=== PATIENT | male | born 1970 | race Caucasian/White ===

== ENCOUNTER 2023-01-20 22:50 | Inpatient (IN) | payer OTHER, SELFPAY ==
--- NOTE | ~2023-01-20 | XR_ITS ---
EXAMINATION: XR CHEST CLINICAL INFORMATION: Shortness of breath. COMPARISON: None available. TECHNIQUE: 2 views of the chest were obtained. FINDINGS: Low lung volumes and enlarged cardiomediastinal silhouette limiting evaluation of the left lower lobe. No focal airspace densities elsewhere in the well seen portions of the lungs. No pleural effusion on the lateral view. No pneumothorax. No acute osseous abnormalities. Thoracic spondylosis. XR/XR chest 2V IMPRESSION: No acute cardiopulmonary findings with the caveat of limited evaluation of the left lower lobe. Further evaluation with CT could be obtained as clinically deemed appropriate.
[2023-01-20 22:53] VITALS: BP 124/68; PULSE 86; O2SAT 96; BMI 52.9
--- NOTE | 2023-01-20 22:57 | ECG_ITS ---
Test Reason : SOB Blood Pressure : / mmHG Vent. Rate : 079 BPM Atrial Rate : 079 BPM P-R Int : 188 ms QRS Dur : 132 ms QT Int : 414 ms P-R-T Axes : 042 -50 072 degrees QTc Int : 474 ms Normal sinus rhythm Left axis deviation Left ventricular hypertrophy with QRS widening ( R in aVL , Joseluis product ) Cannot rule out Septal infarct , age undetermined Possible Lateral infarct , age undetermined Abnormal ECG No previous ECGs available Referred By: Generic ED Physician Electronically Signed By:TRACY BLANTON
[2023-01-20 23:12] VITALS: BP 103/72; PULSE 81; RESP 21; TEMP 36.8; O2SAT 96
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
[2023-01-20 23:16] LABS: MANUAL DIFF FLAG NO
[2023-01-20 23:17] LABS: Basophils Percent Auto 0.3 % (0-2); Eosinophils Absolute Auto 0.3 X10*3/uL (0.0-0.4); Eosinophils Percent Auto 3.6 % (0-4); Hematocrit 37.5 % (42.0-52.0); Hemoglobin 12.3 g/dl (14.0-18.0); Imm Gran Abs Auto 0.03 X10*3/uL (0.00-0.03); Imm Gran Pct Auto 0.3 % (0.0-0.4); Lymphocytes Absolute Auto 1.3 X10*3/uL (1.2-4.9); Lymphocytes Percent Auto 14.8 % (20-40); Mean Corpuscular HGB Conc 32.8 g/dl (31.0-36.0); Mean Corpuscular Hemoglobin 30.9 pg (27.0-33.0); Mean Corpuscular Volume 94.2 fL (80.0-98.0); Mean Platelet Volume 9.6 fL (9.4-12.4); Monocytes Absolute Auto 0.7 X10*3/uL (0.1-1.2); Monocytes Percent Auto 7.8 % (2-11); Neutrophils Absolute Auto 6.5 x10*3/uL (2.0-8.3); Neutrophils Percent Auto 73.2 % (45-73); Platelet Count 280 X10*3/uL (160-400); Red Blood Count 3.98 X10*6/uL (4.60-5.80); Red Cell Distribution Width 16.9 % (11.0-16.0); White Blood Count 8.8 X10*3/uL (4.8-10.8)
[2023-01-20 23:34] LABS: Alanine Aminotransferase 14 U/L (0-40); Albumin Level 3.7 g/dL (3.5-5.0); Alkaline Phosphatase 44 U/L (39-117); Anion Gap 18 (12-20); Aspartate Amino Transferase 18 U/L (5-37); Bilirubin Total 0.2 mg/dL (0.0-1.0); Blood Urea Nitrogen 36 mg/dL (9-16); Calcium 8.8 mg/dL (8.4-10.2); Carbon Dioxide 24 mmol/L (22-29); Chloride 104 mmol/L (96-108); Creatinine Clr Calc Pharmacy 77.8; Estimated Glomerular Filt Rate 40; Glucose Random 112 mg/dL (60-115); Potassium 4.2 mmol/L (3.3-5.1); Sodium 142 mmol/L (135-145); Total Protein 7.3 g/dL (6.5-8.0)
[2023-01-20 23:36] LABS: Troponin-I High Sensitivity 47.8 ng/L (<3.5-35.0)
[2023-01-20 23:37] LABS: B Type Natriuretic Peptide 51 pg/mL (<100)
[2023-01-20] MEDS: HYDROmorphone HCl 2 MG TABLET PO (23:44)
[2023-01-20] MEDS: methylPREDNISolone Sod Succ 125 MG/2 ML VIAL IVPUSH (23:45)
[2023-01-20] MEDS: Aspirin 81 MG TAB.CHEW 324 MG PO (23:51)
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
--- OUTSIDE RECORDS SUMMARY | 2023-01-20 23:55 | XMS_ITS | Continuity of Care Document ---
Author Name Unknown Organization [facility] Address Unknown Care Team Providers Care Data Entry Name Role Phone Preet Sofia MD Primary Care Physician [phone] Encounter [facility] Date(s): 10/20/21 - 11/19/21 [facility] Allergies, Adverse Reactions, Alerts No Known Allergies [...] 03/28/20 Not Given Patient Refuses 1Location History: [facility] 2Location History: [facility] 3Location History: [facility] 4Location History: [facility] Medications aspirin 81 mg oral delayed release tablet 81 mg, By Mouth, Daily, # 30 tablet, Refills 11, Tot. Refills 11, Maintenance, 12/06/21 12:33:00 EDT, Route to Pharmacy Electronically, [facility], 180, cm, 06/16/21 15:51:00 EST, Height, 168.5, kg, 06/03/21 15:52:00 EST, Dry Weight Start Date: 12/06/21 Status: Ordered atorvastatin 80 mg oral tablet 1 tablet, By Mouth, Daily, # 28 tablet, 1 Refills, [facility], 180, cm, 11/03/21 2:14:00 EDT, Height, 184, kg, 11/01/21 11:27:00 EDT, Dry Weight Start Date: 11/09/21 Status: Ordered betamethasone-clotrimazole 0.05%-1% topical cream 1 application, Topically, 2 times a day, apply to feet, # 45 Gm, 0 Refills, Maintenance, 07/29/21 11:03:00 EDT, Cream, [facility], Partial fill upon patient request if the prescription is for a schedule II opioid drug., 1 application Topic... Start Date: 07/29/21 Status: Ordered carvedilol 6.25 mg oral tablet 6.25 mg, 1, tablet, By Mouth, 2 times a day, for heart and blood pressure, # 60 tablet, Refills 5, Tot. Refills 5, Maintenance, 08/16/21 15:35:00 EDT, Route to Pharmacy Electronically, [facility], 180, cm, 08/12/21 8:38:00 EDT, Height, 175... Start Date: 08/16/21 Status: Ordered Entresto 24 mg-26 mg oral tablet 1 tablet, By Mouth, 2 times a day, # 60 tablet, 5 Refills, Maintenance, 10/07/21 17:36:00 EDT, Tablet, [facility], Prior authorization just received, 1 tablet By Mouth 2 times a day, 180, cm, 08/26/21 12:41:00 EDT, Height, 175.7, kg, 08/25... Start Date: 10/07/21 Status: Ordered FLUoxetine 40 mg oral capsule [...] Dry Weight Start Date: 07/02/21 Status: Ordered nitroglycerin 0.4 mg sublingual tablet 1 tablet = 0.4 mg, Sublingual, Every 5 minutes, PRN Chest Pain, # 100 tablet, 0 Refills, Maintenance, 06/09/21 12:34:00 EST, Tablet, [facility], Partial fill upon patient request if theprescription is for a schedule II opioid drug., 180... Start Date: 06/09/21 Status: Ordered spironolactone 25 mg oral tablet 25 mg, 1, tablet, By Mouth, Daily, # 30 tablet, Refills 5, Tot. Refills 5, Maintenance, 12/06/21 12:34:00 EDT, Route to Pharmacy Electronically, [facility], home delivery, 180, cm, 06/16/21 15:51:00 EST, Height, 168.5, kg, 06/03/21 15:52:0... Start Date: 12/06/21 Status: Ordered Symbicort 80mcg/4.5mcg Inhaler 2, puffs, Inhalation, 2 times a day, in the morning and the evening use with spacer chamber rinse mouth and throat after use, # 1 each, Refills 1, Tot. Refills 1, Maintenance, 07/29/21 11:03:00 EDT, Aerosol, Route to Pharmacy Electronically, [id number]... Start Date: 07/29/21 Status: Ordered torsemide 20 mg oral tablet 2 tablet = 40 mg, By Mouth, 2 times a day, # 120 tablet, 5 Refills, Maintenance, 09/23/21 16:07:00 EDT, Tablet, [facility], 180, cm, 08/26/21 12:41:00 EDT, Height, 175.7, kg, :22:00 EDT, Dry Weight Start Date: 09/23/21 Status: Ordered traZODone 50 mg oral tablet 50 mg, 1, tablet, By Mouth, Daily at bedtime, # 30 tablet, Refills 11, Tot. Refills 11, Maintenance, 07/02/21 18:28:00 EST, Route to Pharmacy Electronically, [facility], 180, cm, 06/16/21 15:51:00 EST, Height, 168.5, kg, 06/03/21 15:52:00... Start Date: 07/02/21 Status: Ordered Tylenol Extra Strength 500 mg oral tablet 2 tablet = 1,000 mg, By Mouth, Every 8 hours, PRN Pain , Moderate, # 120 tablet, 0 Refills, Maintenance, 11/18/21 13:43:00 EDT, Tablet, Partial fill upon patient request if the prescription is for a schedule II opioid drug. 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 CPP(Confirmed) Active Post traumatic stress disord er (PTSD)(Confirmed) 1999 Active Severe obesity(Confirmed) Active 1-Seen in CT scan of the abdomen done at [facility] on 08-08-16 Social History Social History Type Response Smoking Status 10 or more cigarette s (1/2 pack or more)/day in last 30 days; Interested in cessation: No; Patient wants NRT during admission No entered on: 06/03/21 Sex
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
--- OUTSIDE RECORDS SUMMARY | 2023-01-20 23:55 | XMS_ITS | Continuity of Care Document ---
Author Name Unknown Organization [facility] Address [address] [place] [address]- Care Team Providers Care Clinical Education Manager Name Role Phone Bismark TORRES, Preet Hall Primary Care Physician [phone] Encounter [facility] Date(s): 09/11/21 - 09/12/[address] [address] Discharge Disposition: A-D/C AMA Attending Physician: Ayad Figueroa MD, Parveen Li Admitting Physician: Agnes TORRES, [place] Referring Physician: Not on Staff, Referring MD Allergies, Adverse Reactions, Alerts No Known [...] History: [facility] 3Location History: [facility] 4Location History: [facility] Medications aspirin 81 mg oral delayed release [...] carvedilol 6.25 mg oral tablet 6.25 mg, Tablet, By Mouth, Hold for: sbp<90, HR<55, 09/12/21 9:00:00 EDT Start Date: 09/12/21 Stop Date: 09/12/21 Status: Completed carvedilol 6.25 mg oral tablet 6.25 mg, 1, tablet, By Mouth, 2 times a day, for heart and blood pressure, # 60 tablet, Refills 5, Tot. Refills 5, Maintenance, 08/16/21 15:35:00 EDT, Route to Pharmacy Electronically, [facility], 180, cm, 08/12/21 8:38:00 EDT, Height, 175... Start Date: 08/16/21 Status: Ordered diclofenac 1% topical gel = [...] Dry Weight Start Date: 11/24/21 Status: Ordered FLUoxetine 40 mg [...] 0 Refills, Maintenance, 06/09/21 12:34:00 EST, Tablet, [facility], Partial fill upon patient request [...] Dry Weight Start Date: 09/01/21 Status: Ordered [facility] Antifungal Extra Thick 2% topical cream 1 application, Topically, 2 times a day, to cracks in soles of feet, # 92 Gm, 0 Refills, Maintenance, 06/09/21 12:34:00 EST, Cream, [facility], Partial fill upon patient request if the prescription is for a schedule II opioid drug., 1 ap... Start Date: 06/09/21 Status: Ordered spironolactone 25 [...] 11:03:00 EDT, Aerosol, Route to Pharmacy Electronically, [id number]... Start Date: 07/29/21 Status: Ordered torsemide 20 mg oral tablet 2 tablet = 40 mg, By Mouth, 2 times a day, # 120 tablet, 3 Refills, Maintenance, 07/02/21 18:24:00 EST, Tablet, [facility], 180, cm, [...] consistent with a cyst on CT at [facility] 04/2019(Confirmed) 04/2019 Active Coronary artery [...] repair 2009(Confirmed) 1999 Active Morbid obesity(Confirmed) Active Obese class I(Confirmed) Active Obstructive sleep apnea(Confirmed) Active .Ruffler: Zoltan Diaz [phone], [facility]. CPP(Confirmed) Active Post traumatic stress disord er (PTSD)(Confirmed) 1999 Active 1-Seen in CT scan of the abdomen done at [facility] on 08-08-16 Results Radiology Reports * Exam Date Time Procedure Performing Provider Status 09/12/21 2:57 PM Knee 1 or 2 Views Left Sydnie Parker ne; Auth (Verified) Notes: (Knee 1 or 2 Views Left) Reason For Exam: L knee swelling, ? effusion;Pain RESULT: Knee 1 or 2 Views Left Knee 1 or 2 Views Left, 2 views Reason: Pain; L knee swelling, ? effusion; Clinical Question(s): Other: COMPARISON: None. FINDINGS: There is no evidence of acute or healing fracture, dislocation or bone lesion. No arthritic changes. No osteochondral defects or intra-articular loose bodies. Trace suprapatellar effusion. Substantial soft tissue swelling anterior to the patellar tendon and proximal tibia. IMPRESSION: Substantial soft tissue swelling anterior to the patellar tendon and upper tibia, which may be due to soft tissue contusion or hematoma. Prepatellar bursitis is within the differential, although the swelling appears somewhat more inferior than would be expected. No clear fracture. Trace suprapatellar effusion. WSN: [id number] Ordering Physician: Parveen Hooker Dictated By: Preet Diaz MD Dictated Date/Time: 09/12/21 4:13 pm Reviewed By: Preet Diaz MD Signed By: Preet Diaz MD Signed Date/Time: 09/12/21 4:13 pm Transcribed By: SHANNA Transcribed Date/Time: 09/12/21 4:11 pm * Exam Date Time Procedure Performing Provider Status 09/11/21 11:54 PM Chest Portable Donna Anderson; Au th (Verified) Notes: (Chest Portable) Reason For Exam: Chest Pain;Other: RESULT: Chest Portable Chest Portable Reason: Other:; Chest Pain; Clinical Question(s): CHF COMPARISON: 08/31/2021 chest radiograph. 08/25/2021 chest radiograph.08/31/2021 CT abdomen and pelvis. FINDINGS: LINES AND TUBES: None. LUNGS AND PLEURA: Apparent left lower lobe retrocardiac opacity has been seen on prior chest radiograph on 08/25/2021 and probably reflects a combination of cardiomegaly, and prominent epicardial fat pad rather than anyfocal consolidation or effusion. No definite focal consolidation is seen. Normal pulmonary vascularity. No pleural effusion. No pneumothorax. HEART, MEDIASTINUM AND CAROLA: Moderate prominence of the cardiac silhouette. Normal upper mediastinal and hilar contour. BONES AND SOFT TISSUES: No acute abnormality. IMPRESSION: 1. No acute abnormality. 2. Stable apparent left retrocardiac opacity probably a combination of cardiomegaly and prominent epicardial fat pad rather than a focal consolidation or effusion in the left lower lobe. WSN: [id number] Ordering Physician: Katie Levine Dictated By: Tye Billingsley MD Dictated Date/Time: 09/12/21 0:01 am Reviewed By: Tye Billingsley MD Signed By: Tye Billingsley MD Signed Date/Time: 09/12/21 0:01 am Transcribed By: SHANNA Transcribed Date/Time: 09/11/21 11:57 pm Vital Signs Most recent to oldest [Reference Range]: 1 2 3 Oxygen Saturation [94-100 %] 94 % (09/12/21 4:05 PM) 93 % *L* (09/12/21 12:11 PM) 97 % (09/12/21 10:03 AM) Pulse Rate [55-90 bpm] 62 bpm (09/12/21 4:05 PM) 57 bpm (09/12/21 12:11 PM) 71 bpm (09/12/21 10:03 AM) Blood Pressure [90-138/55-84 mm Hg] 117/73mm Hg (09/12/21 4:05 PM) 121/68mm Hg (09/12/21 12:11 PM) 141/88mm Hg *H* (09/12/21 10:03 AM) Respiratory Rate [16-30 br/min] 17 br/min (09/12/21 4:05 PM) 18 br/min (09/12/21 12:11 PM) 20 br/min (09/12/21 10:03 AM) Temperature [96.8-100.4 DegF] 98.9 DegF (09/12/21 4:05 PM) 98.2 DegF (09/12/21 12:11 PM) 98 DegF (09/12/21 12:41 AM) Mode of Delivery (Oxygen) Room air (09/12/21 4:05 PM) Room air (09/12/21 12:11 PM) Room air (09/12/21 10:03 AM) Blood pressure sites Arm, left (09/12/21 4:05 PM) Arm, left (09/12/21 12:11 PM) Temperature Route Oral (09/12/21 4:05 PM) Oral (09/12/21 12:11 PM) Oral (09/12/21 12:41 AM) Social History Social History Type Response Smoking Status 10 or more cigarette s (1/2 pack or more)/day in last 30 days; Interested in cessation: No; Patient wants NRT during admission No entered on: 06/03/21 Sex
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
--- OUTSIDE RECORDS SUMMARY | 2023-01-20 23:56 | XMS_ITS | Continuity of Care Document ---
Author Name Unknown Organization [facility] Address [address] [place] [address]- Care Team Providers Care Network Systems Analyst Name Role Phone Preet Sofia MD Primary Care Physician [place] [facility] [place] [id number] Date(s): 10/04/22 - 11/03/[address] [address]- Attending Physician: Alexis Daigle Admitting Physician: AdmtrAlexis Referring Physician: Admtr, Ar8 Allergies, Adverse Reactions, Alerts No Known Allergies [...] 3 Refills, Maintenance, 10/19/22 20:02:00 EDT, Tablet, [id number], 180, cm, 10/19/22 4:49:00 EDT, [...] 10/19/22 20:05:00 EDT, Route to Pharmacy Electronically, [facility]/pharm[facility] #[id number], 180, cm, 10/19/22 4:49:00 EDT, Height, 181, kg, 09/26/22 14:48:00 EDT, Dry W... Start Date: 10/19/22 Status: Ordered Dilaudid 2 mg oral tablet See Instructions, PRN Pain , Severe, 1 tablet By Mouth every 4 hours up to 3x/day during daytime asneeded for severe pain. 7 day supply., # 21 tablet, 0 Refills, Maintenance, 10/28/22 22:27:00 EDT, Tablet, [facility]/pharmacy #[id number], Partial fill upon patien... Start Date: 10/28/22 Status: Ordered duloxetine 30 mg oral enteric coated capsule 1 capsule = 30 mg, By Mouth, Daily at bedtime, # 30 capsule, 1 Refills, Maintenance, 10/12/22 12:25:00 EDT, Capsule, [facility], Partial fill upon patient request if the prescription isfor a schedule II opioid drug., 180, cm, 10/12/22 1... Start Date: 10/12/22 Stop Date: 12/11/22 Status: Ordered Entresto 24 mg-26 mg oral tablet 1 tablet, By Mouth, 2 times a day, # 60 tablet, 5 Refills, Maintenance, 10/19/22 20:09:00 EDT, Tablet, [id number], 1 tablet By Mouth 2 times [...] 3 Refills, Maintenance, 10/19/22 20:06:00 EDT, Tablet, [id number], 180, cm, 10/19/22 [...] 0 Refills, Maintenance, 06/09/21 12:34:00 EST, Tablet, [facility], Partial fill upon patient [...] 10/19/22 20:09:00 EDT, Route to Pharmacy Electronically, [id number], 180, cm, 10/19/22 4:49:00 EDT, [...] 5 Refills, Maintenance, 10/19/22 20:12:00 EDT, Tablet, [id number], 180, cm, 10/19/22 4:49:00 EDT, [...] consistent with a cyst on CT at [facility] 04/2019 Confirmed 04/2019 Active Coronary artery [...] Confirmed Active Obstructive sleep apnea Confirmed Active .Packing Line Operator: Lucita Segal [phone], [facility]. CPP Confirmed Active Post traumatic stress disorder (PTSD) Confirmed 1999 Active Severe obesity Confirmed Active 1-Seen in CT scan of the abdomen done at [facility] on 08-08-16 Social History Social History Type Response Smoking Status 10 or more cigarette s (1/2 pack or more)/day in last 30 days; Interested in cessation: No; Patient wants NRT during admission No entered on: 06/03/21 Sex Male Patient Care team information Care Team Personnel Name: Brenda Vanegas RN Position: [facility] RN Member Role: Primary Care Nurse Name: Renae Rashid RN Position: S RN Member Role: Primary Care Nurse Name: Lizbeth Reardon RN Position: [facility] RN Member Role: Primary Care Nurse Name: Brittny Griffin RN Position: [facility] RN Member Role: Primary Care Nurse Name: Rickey Cruz RN Position: [facility] RN Member Role: Primary Care Nurse Name: Brandee Bee RN Position: [facility] RN Member Role: Primary Care Nurse Name: Janie Gamez RN Position: [facility] RN Member Role: Primary Care Nurse Name: Jing Santiago RN Position: [facility] RN Member Role: Primary Care Nurse Name: Sven Bustos RN Position: [facility] RN Member Role: Primary Care Nurse Name: Sharron Schaefer RN Position: [facility] RN Member Role: Primary Care Nurse Name: Franca Luis LPN Position: [facility] RN Member Role: Primary Care Nurse Name: Sheryl Linda RN Position: [facility] RN Member Role: Primary Care Nurse Name: Zara Aldridge RN Position: [facility] RN Member Role: Primary Care Nurse Name: Preet Sofia MD Position: [facility] Physician - Primary Care Member Role: PCP Address: Address: [address] [place] [address] Name: Betsey Harvey RN Position: [facility] RN Member Role: Primary Care Nurse Name: Camila Cervantes RN Position: [facility] RN Member Role: Primary Care Nurse Name: Aruna Warren RN Position: [facility] RN Member Role: Primary Care Nurse Name: Naomi Kyle RN Position: [facility] RN Member Role: Primary Care Nurse Name: Pavan Espinoza RN Position: [facility] RN Member Role: Primary Care Nurse Name: Lynne Shah RN Position: [facility] RN Member Role: Primary Care Nurse Name: Naomi Mcadams RN Position: [facility] RN Member Role: Primary Care Nurse Name: Ashwini Larson RN Position: [facility] SN RN Member Role: Primary Care Nurse Name: Darren Ortega RN Position: [facility] RN Member Role: Primary Care Nurse Name: Lorraine Good RN Position: [facility] RN Member Role: Primary Care Nurse Name: Mohan Quijano RN Position: [facility] RN Member Role: Primary Care Nurse Name: Shaina Nagy RN Position: [facility] RN Member Role: Primary Care Nurse Name: Sarah Gordon RN Position: [facility] Onco RN Member Role: Primary Care Nurse Name: Catalina Cook RN Position: S RN Member Role: Primary Care Nurse Name: Sweta Lang RN Position: [facility] RN Member Role: Primary Care Nurse Name: Selene SANDERSON, Kely Eng Position: [facility] RN Member Role: Primary Care Nurse Care Team Related Persons Name: DIAN RODGERS Address: [place] [address] Name: KT LANDEROS Address: [place] [address] Name: TAE QUIROZ Address: [place] [id number]
--- OUTSIDE RECORDS SUMMARY | 2023-01-20 23:56 | XMS_ITS | Continuity of Care Document ---
Author Name Unknown Organization [facility] Address [address] [place] [address]- Care Team Providers Care Back End Web Developer Name Role Phone Preet Sofia MD Primary Care Physician Encounter [facility] Date(s): 10/08/20 - 11/07/[address] [id number] Allergies, Adverse Reactions, Alerts Substance Reaction Severity [...] 03/28/20 Not Given Patient Refuses 1Location History: [facility] 2Location History: [facility] 3Location History: [facility] 4Location History: [facility] Medications aspirin 81 mg oral delayed release tablet 81 mg, By Mouth, Daily, # 90 tablet, Refills 4, Tot. Refills 4, Maintenance, 09/03/20 20:10:00 EDT,Route to Pharmacy Electronically, [facility], 180, cm, 09/03/20 9:24:00 EDT, Height, 172.7, kg, 08/28/20 4:44:00 EDT, Dry Weight Start Date: 09/03/20 Status: Ordered atorvastatin 40 mg oral tablet 1 tablet = 40 mg, By Mouth, Daily at bedtime, # 90 tablet, 4 Refills, Maintenance, 09/03/20 20:11:00 EDT, Tablet, [facility], 180, cm, 09/03/20 9:24:00 EDT, Height, 172.7, kg, 08/28/20 4:44:00 EDT, Dry Weight Start Date: 09/03/20 Status: Ordered carvedilol 3.125 mg oral tablet 3.125 mg, 1, tablet, By Mouth, 2 times a day, # 180 tablet, Refills 0, Tot. Refills 0, Maintenance,09/21/20 13:23:00 EDT, Route to Pharmacy Electronically, [facility], Partial fill upon patient request if the prescription is for a sched... Start Date: 09/21/20 Status: Ordered clopidogrel 75 mg oral tablet 75 mg, 1, tablet, By Mouth, Daily, # 90 tablet, Refills 3, Tot. Refills 3, Hard Stop 01/17/22 16:10:00 EDT, 01/22/21 16:10:00 EDT, [id number], 180, cm, 04/08/20 13:32:00 EST, Height, 181.... Start Date: 01/22/21 Stop Date: 01/17/22 Status: Ordered Entresto 24 mg-26 mg oral tablet 1 tablet, By Mouth, 2 times a day, # 180 tablet, 0 Refills, Maintenance, 09/21/20 13:24:00 EDT, Tablet, [facility], Partial fill upon patient request if the prescription is for a schedule II opioid drug., 1 tablet By Mouth 2 times a day,... Start Date: 09/21/20 Status: Ordered FLUoxetine 20 mg oral capsule 20 mg, 1, capsule, By Mouth, Daily, # 90 capsule, Refills 4, Tot. Refills 4, Maintenance, 09/03/20 20:09:00 EDT, Route to Pharmacy Electronically, [facility], home delivery, 180, cm, 09/03/20 9:24:00 EDT, Height, 172.7, kg, ... Start Date: 09/03/20 Status: Ordered levothyroxine 0.05 mg oral tablet 1 tablet = 50 mcg, By Mouth, Daily, # 90 tablet, 4 Refills, Maintenance, 06/26/20 17:25:00 EST, Tablet, [facility], home delivery, 180, cm, 06/26/20 14:13:00 EST, Height, 181.6, kg, 03/27/20 14:58:00 EST, Dry Weight Start Date: 06/26/20 Status: Ordered nortriptyline 10 mg oral capsule 10 mg, 1, capsule, By Mouth, Daily, # 90 capsule, Refills 3, Tot. Refills 3, Maintenance, 09/03/20 20:09:00 EDT, Route to Pharmacy Electronically, [facility], 180, cm, 09/03/20 9:24:00 EDT, Height, 172.7, kg, 08/28/20 4:44:00 EDT,... Start Date: 09/03/20 Status: Ordered pantoprazole 20 mg oral delayed release tablet = 20 mg, By Mouth, Daily, # 30 tablet, 0 Refills, Maintenance, 08/31/20 14:17:00 EDT, EC Tablet, 180, cm, 07/10/20 16:22:00 EDT, Height, 172.7, kg, 08/28/20 4:44:00 EDT, Dry Weight Start Date: 08/31/20 Stop Date: 09/30/20 Status: Ordered spironolactone 25 mg oral tablet 25 mg, 1, tablet, By Mouth, Daily, # 90 tablet, Refills 3, Tot. Refills 3, Maintenance, 06/26/20 17:25:00 EST, Route to Pharmacy Electronically, [facility], [place] [facility], 180, cm, 06/26/20 14:13:00 EST, Height, 181.6, kg, 03/27/20... Start Date: 06/26/20 Status: Ordered torsemide 20 mg oral tablet 1 tablet = 20 mg, By Mouth, Daily, # 90 tablet, 0 Refills, Maintenance, 09/21/20 13:23:00 EDT, Tablet, [facility], Partial fill upon patient request if [...] consistent with a cyst on CT at [facility] 04/2019(Confirmed) 04/2019 Active Coronary artery [...] Morbid obesity(Confirmed) Active Obstructive sleep apnea(Confirmed) Active .Guardian Ad Litem: Zoltan Diaz [phone], [facility]. CPP(Confirmed) Active Post traumatic stress disord er (PTSD)(Confirmed) 1999 Active 1-Seen in CT scan of the abdomen done at [facility] on 08-08-16 Social History Social History Type Response Smoking Status 10 or more cigarette s (1/2 pack or more)/day in last 30 days; Other: [id number]; entered on: 09/03/20 Sex
--- OUTSIDE RECORDS SUMMARY | 2023-01-20 23:56 | XMS_ITS | Continuity of Care Document ---
Author Name Unknown Organization [facility] Address [address] [place] [address]- Care Team Providers Care It Instructor Name Role Phone Preet Sofia MD Primary Care Physician [phone] Encounter [facility] Date(s): 10/19/22 - 11/18/22 [facility]/[address] [address]- [place] Allergies, Adverse Reactions, Alerts No Known Allergies Immunizations Given and Recorded Vaccine Date Status Refusal Reason SARS-CoV-2 (COVID-19) mRNA-[id number] vaccine 05/11/21 G iven influenza virus vaccine, [...] Not Given Patient Refuses 1Location History: [facility] 2Location History: [facility] 3Location History: [facility] 4Location History: [facility] Medications aspirin 81 mg oral delayed release [...] 3 Refills, Maintenance, 10/19/22 20:02:00 EDT, Tablet, [facility]/pharmacy #[id number], 180, cm, 10/19/22 4:49:00 EDT, [...] 10/19/22 20:05:00 EDT, Route to Pharmacy Electronically, [facility]/pharmacy #[id number], 180, cm, 10/19/22 4:49:00 EDT, Height, 181, kg, 09/26/22 14:48:00 EDT, Dry W... Start Date: 10/19/22 Status: Ordered Dilaudid 2 mg oral tablet See Instructions, PRN Pain , Severe, 1 tablet By Mouth every 4 hours up to 3x/day during daytime asneeded for severe pain. 7 day or more supply., # 21 tablet, 0 Refills, Maintenance, 11/10/22 20:43:00 EDT, Tablet, [facility]/pharmacy #[id number], Partial fill upo... Start Date: 11/10/22 Status: Ordered duloxetine 30 mg oral enteric coated capsule 1 capsule = 30 mg, By Mouth, Daily at bedtime, # 30 capsule, 1 Refills, Maintenance, 10/12/22 12:25:00 EDT, Capsule, [facility], Partial fill upon patient [...] 3 Refills, Maintenance, 10/19/22 20:06:00 EDT, Tablet, [facility]/pharmacy #[id number], 180, cm, 10/19/22 4:49:00 EDT, [...] 0 Refills, Maintenance, 06/09/21 12:34:00 EST, Tablet, [facility], Partial fill upon patient [...] 10/19/22 20:09:00 EDT, Route to Pharmacy Electronically, [facility]/pharmacy #[id number], 180, cm, 10/19/22 4:49:00 EDT, [...] 5 Refills, Maintenance, 10/19/22 20:12:00 EDT, Tablet, [facility]/pharmacy #[id number], 180, cm, 10/19/22 4:49:00 EDT, [...] consistent with a cyst on CT at [facility] 04/2019 Confirmed 04/2019 Active Coronary artery disease, [...] Confirmed Active Obstructive sleep apnea Confirmed Active .Exhibits Manager: Lucita Segal [phone], [facility]. CPP Confirmed Active Post traumatic stress disorder (PTSD) Confirmed 1999 Active Severe obesity Confirmed Active 1-Seen in CT scan of the abdomen done at [facility] on 08-08-16 Social History Social History Type [...] Care Nurse Name: Lizbeth Reardon RN Position: S RN Member Role: Primary Care Nurse Name: Brittny Griffin RN Position: S RN Member Role: Primary Care Nurse Name: Phill Michelle Position: [facility] RN Supv Member Role: Primary Care Nurse Name: Rickey Cruz RN Position: [facility] RN Member Role: Primary Care Nurse Name: Brandee Bee RN Position: [facility] RN Member Role: Primary Care Nurse Name: Janie Gamez RN Position: [facility] RN Member Role: Primary Care Nurse Name: Jing Santiago RN Position: [facility] RN Member Role: Primary Care Nurse Name: Sven Bustos RN Position: [facility] RN Member Role: Primary Care Nurse Name: Sharron Schaefer RN Position: [facility] RN Member Role: Primary Care Nurse Name: Franca Luis LPN Position: [facility] RN Member Role: Primary Care Nurse Name: Sheryl Linda RN Position: [facility] RN Member Role: Primary Care Nurse Name: Zara Aldridge RN Position: [facility] RN Member Role: Primary Care Nurse Name: Preet Sofia MD Position: [facility] Physician - Primary Care Member Role: PCP Address: Address: [address] [place] [address] Name: Betsey Harvey RN Position: [facility] RN Member Role: Primary Care Nurse Name: Camila Cervantes RN Position: [facility] RN Member Role: Primary Care Nurse Name: Aruna Warren RN Position: [facility] RN Member Role: Primary Care Nurse Name: Naomi Kyle RN Position: [facility] RN Member Role: Primary Care Nurse Name: Pavan Espinoza RN Position: [facility] RN Member Role: Primary Care Nurse Name: Lynne Shah RN Position: [facility] RN Member Role: Primary Care Nurse Name: Ashwini Larson RN Position: [facility] SN RN Member Role: Primary Care Nurse Name: Darren Ortega RN Position: [facility] RN Member Role: Primary Care Nurse Name: Lorraine Good RN Position: [facility] RN Member Role: Primary Care Nurse Name: Mohan Quijano RN Position: [facility] RN Member Role: Primary Care Nurse Name: Shaina Nagy RN Position: [facility] RN Member Role: Primary Care Nurse Name: Sarah Gordon RN Position: [facility] Onco RN Member Role: Primary Care Nurse Name: Catalina Cook RN Position: [facility] RN Member Role: Primary Care Nurse Name: Sweta Lang RN Position: [facility] RN Member Role: Primary Care Nurse Name: Selene SANDERSON, Kely Eng Position: S RN Member Role: Primary Care Nurse Care Team Related Persons Name: DIAN RODGERS Address: [place] [address] Name: KT LANDEROS Address: [place] [address] Name: TAE QUIROZ Address: [place] [address]
--- OUTSIDE RECORDS SUMMARY | 2023-01-20 23:56 | XMS_ITS | Continuity of Care Document ---
Author Name Unknown Organization [facility] Address [address] [place] [address]- Care Team Providers Care Hyster Machine Operator Name Role Phone Preet Sofia MD Primary Care Physician Encounter [facility] Date(s): 11/16/22 - 12/16/22 [facility] [address]- [place] Allergies, Adverse Reactions, Alerts No Known Allergies Immunizations Given and Recorded Vaccine Date Status Refusal Reason SARS-CoV-2 (COVID-19) mRNA-1488 vaccine 05/11/21 G iven influenza virus vaccine, inactivated 1 02/08/14 Re corded hepatitis B adult vaccine 01/22/13 Recorded hepatitis B adult vaccine 08/12/10 Recorded hepatitis B adult vaccine 2 03/09/10 Recorded Hepatitis A Adult Vaccine 3 08/12/10 Recorded Hepatitis A Adult Vaccine 4 02/27/10 Recorded 1Location History[facility] 2Location History: [facility] 3Location History: [facility] 4Location History: [facility] Medications aspirin 81 mg oral delayed release tablet 1 tablet = 81 mg, By Mouth, Daily, # 90 tablet, 3 Refills, Maintenance, 12/10/22 1:31:00 EDT, CR Tablet, [id number], 178, cm, 11/22/22 18:01:00 EDT, Height, 164.9, kg, 11/18/22 18:49:00 EDT, Dry Weight Start Date: 12/10/22 Status: Ordered atorvastatin 80 mg oral tablet 1 tablet = 80 mg, By Mouth, Daily, # 30 tablet, 11 Refills, Maintenance, 12/22/22 14:06:00 EDT, Tablet, [id number], 178, cm, 11/22/22 18:01:00 EDT, Height, 164.9, kg, 11/18/22 18:49:00 EDT, Dry Weight Start Date: 12/22/22 Status: Ordered bariatric commode bariatric commode, See Instructions, # 1 each, Refills 0, Tot. Refills 0, Maintenance, Dx - Weakness / Leg Pain, 10/14/22 18:29:00 EDT, Supply Start Date: 10/14/22 Status: Ordered Bariatric Walker Bariatric Walker, See Instructions, # 1 each, Refills 0, Tot. Refills 0, Maintenance, Dx - Weakness/ Leg Pain, 10/14/22 18:29:00 EDT, Supply Start Date: 10/14/22 Status: Ordered carvedilol 3.125 mg oral tablet 6.25 mg, 2, tablet, By Mouth, 2 times a day, # 60 tablet, Refills 5, Tot. Refills 5, Maintenance, 12/22/22 14:14:00 EDT, Route to Pharmacy Electronically, [facility]/pharmacy #[id number], 178, cm, 11/22/22 18:01:00 EDT, Height, 164.9, kg, 11/18/22 18:49:00 EDT, . Start Date: 12/22/22 Status: Ordered Chem 7 in a week, results to PCP Chem 7 in a week, results to PCP, See Instructions, # 1 each, Refills 0, Tot. Refills 0, Maintenance, Dx: CHF, 11/22/22 15:17:00 EDT, Supply Start Date: 11/22/22 Status: Ordered Dilaudid 2 mg oral tablet See Instructions, PRN Pain , Severe, 1 tablet By Mouth every 4 hours up to 3x/day during daytime asneeded for severe pain, =14 day or more supply., # 42 tablet, 0 Refills, Maintenance, 12/06/22 13:35:00 EDT, Tablet, [facility] [place] [place] Start Date: 12/06/22 Status: Ordered duloxetine 30 mg oral enteric coated capsule 1 capsule = 30 mg, By Mouth, Daily at bedtime, # 30 capsule, 5 Refills, Maintenance, 01/21/23 14:06:00 EDT, Capsule, [facility]/pharmacy #[id number], Partial fill upon patient request if the prescription is for aschedule II opioid drug., 178, cm, 11/22/22 18:01:0... Start Date: 01/21/23 Stop Date: 07/20/23 Status: Ordered Eliquis 5 mg oral tablet 1 tablet = 5 mg, By Mouth, 2 times a day, # 60 tablet, 5 Refills, Maintenance, 12/10/22 1:31:00 EDT, Tablet, [facility]/pharmacy #[id number], Partial fill upon patient request if the prescription is for a schedule II opioid drug., 178, cm, 11/22/22 18:01:00 EDT, H... Start Date: 12/10/22 Status: Ordered Entresto 24 mg-26 mg oral tablet 1 tablet, By Mouth, 2 times a day, for 30 days, # 60 tablet, 0 Refills, Hard Stop 12/22/22 14:07:00EDT, 11/22/22 14:07:00 EDT, Tablet, [facility]/pharmacy #[id number], 178, cm, 11/22/22 11:40:00 EDT, Height, 164.9, kg, 11/18/22 18:49:00 EDT, Dry Weight Start Date: 11/22/22 Stop Date: 12/22/22 Status: Ordered Entresto 24 mg-26 mg oral tablet 1 tablet, By Mouth, 2 times a day, # 60 tablet, 5 Refills, Maintenance, 12/22/22 14:07:00 EDT, Tablet, [facility]/pharmacy #[id number], 1 tablet By Mouth 2 times a day,x30 days, 178, cm, 11/22/22 18:01:00 EDT, Height, 164.9, kg, 11/18/22 18:49:00 EDT, Dry Weight Start Date: 12/22/22 Stop Date: 06/20/23 Status: Ordered Hospital Bed See Instructions, # 1 each, Maintenance, semi-electric adjustable hospital bed , HOB elevated >30degr most of time. Duration: 2 yrs. Dx: I50.22, 10/12/22 17:37:00 EDT, Compound Start Date: 10/12/22 Status: Ordered levothyroxine 0.2 mg oral tablet 1 tablet = 200 mcg, By Mouth, Daily, for 30 days, # 30 tablet, 3 Refills, Hard Stop 03/22/23 14:07:00 EST, 11/22/22 14:07:00 EDT, Tablet, [facility]/pharmacy #[id number], 178, cm, 11/22/22 11:40:00 EDT, Height, 164.9, kg, 11/18/22 18:49:00 EDT, Dry Weight Start Date: 11/22/22 Stop Date: 03/22/23 Status: Ordered levothyroxine 0.2 mg oral tablet 1 tablet = 200 mcg, By Mouth, Daily, # 30 tablet, 11 Refills, Maintenance, 03/22/23 14:07:00 EST, Tablet, [facility]/pharmacy #[id number], 178, cm, 11/22/22 18:01:00 EDT, Height, 164.9, kg, 11/18/22 18:49:00 EDT,Dry Weight Start Date: 03/22/23 Stop Date: 03/16/24 Status: Ordered melatonin 3 mg oral tablet [...] Refills, Maintenance, 10/19/22 20:08:00 EDT, REC Powder, [facility]/pharmacy #[id number], 17 Gm By Mouth Daily,PRN:Constipation,Instr:dissolve in water before taking, 180, cm,... Start Date: 10/19/22 Status: Ordered nitroglycerin 0.4 mg sublingual tablet 1 tablet = 0.4 mg, Sublingual, Every 5 minutes, PRN Chest Pain, # 100 tablet, 0 Refills, Maintenance, 06/09/21 12:34:00 EST, Tablet, [facility], Partial fill upon patient request if theprescription is for a schedule II opioid drug., 180... Start Date: 06/09/21 Status: Ordered pantoprazole 20 mg oral delayed release tablet 1 tablet = 20 mg, By Mouth, Daily, # 30 tablet, 5 Refills, Maintenance, 01/21/23 14:07:00 EDT, EC Tablet, 178, cm, 11/22/22 18:01:00 EDT, Height, 164.9, kg, 11/18/22 18:49:00 EDT, Dry Weight Start Date: 01/21/23 Stop Date: 07/20/23 Status: Ordered Physical Therapy Physical Therapy, See Instructions, # 1 each, Refills 0, Tot. Refills 0, Maintenance, Dx: CHF exacerbation, Acute DVT, 11/22/22 15:17:00 EDT, Supply Start Date: 11/22/22 Status: Ordered spironolactone 25 mg oral tablet 25 mg, 1, tablet, By Mouth, Daily, # 30 tablet, Refills 5, Tot. Refills 5, Maintenance, 12/22/22 14:07:00 EDT, Route to Pharmacy Electronically, [facility]/pharmacy #[id number], 178, cm, 11/22/22 18:01:00 EDT, Height, 164.9, kg, 11/18/22 18:49:00 EDT, Dry Weight Start Date: 12/22/22 Stop Date: 06/20/23 Status: Ordered Symbicort 80mcg/4.5mcg Inhaler 2, puffs, Inhalation, 2 times a day, in the morning and the evening use with spacer chamber rinse mouth and throat after use, # 1 each, Refills 3, Tot. Refills 3, Maintenance, 11/22/22 14:06:00 EDT, Aerosol, Route to Pharmacy Electronically, [id number]... Start Date: 11/22/22 Status: Ordered torsemide 20 mg oral tablet 1 tablet = 20 mg, By Mouth, 2 times a day, # 60 tablet, 5 Refills, Maintenance, 12/22/22 14:08:00 EDT, Tablet, [facility]/pharmacy #[id number], 178, cm, 11/22/22 18:01:00 EDT, Height, 164.9, kg, 11/18/22 18:49:00EDT, Dry Weight Start Date: 12/22/22 Stop Date: 06/20/23 Status: Ordered Tylenol Extra Strength 500 mg oral tablet 1 tablet = 500 mg, By Mouth, 3 times a day, PRN Pain , Moderate, for 14 days, # 24 tablet, 5 Refills, Hard Stop 01/31/23 14:05:45 EDT, 10/19/22 20:00:00 EDT, Tablet, [facility]/pharmacy #[id number], 180, cm, 10/19/22 4:49:00 EDT, Height, 181, kg, 09/26/22 14:48:00... Start Date: 10/19/22 Stop Date: 01/31/23 Status: Ordered Tylenol Extra Strength 500 mg oral tablet 1 tablet = 500 mg, By Mouth, 3 times a day, PRN Pain , Moderate, # 100 tablet, 5 Refills, Maintenance, 01/31/23 14:05:00 EDT, Tablet, [facility]/pharmacy #[id number], 178, cm, 11/22/22 18:01:00 EDT, Height, 164.9, kg, 11/18/22 18:49:00 EDT, Dry Weight Start Date: 01/31/23 Status: Ordered Problem List Condition Confirmation Course [...] consistent with a cyst on CT at [facility] 04/2019 Confirmed 04/2019 Active Coronary artery disease, [...] Confirmed Active Obstructive sleep apnea Confirmed Active .Microbiology Teacher: Lucita Segal [phone], [facility]. CPP Confirmed Active Post traumatic stress disorder (PTSD) Confirmed 1999 Active Pulmonary embolus most branches of R lung, Dx at [place], [place] on 11/28/22. L popliteal & peroneal DVT 11/18/22 Confirmed Active Severe obesity Confirmed Active 1-Seen in CT scan of the abdomen done at [facility] on 08-08-16 Social History Social History Type Response Smoking Status 10 or more cigarette s (1/2 pack or more)/day in last 30 days; Interested in cessation: No; Patient wants NRT during admission No entered on: 06/03/21 Sex Male Patient Care team information Care Team Personnel Name: Brenda Vanegas RN Position: [facility] RN Member Role: Primary Care Nurse Name: Renae Rashid RN Position: [facility] RN Member Role: Primary Care Nurse Name: Lizbeth Reardon RN Position: [facility] RN Member Role: Primary Care Nurse Name: Brittny Griffin RN Position: [facility] RN Member Role: Primary Care Nurse Name: Phill Michelle Position: [facility] RN Supv Member Role: Primary Care Nurse Name: Rickey Cruz RN Position: [facility] RN Member Role: Primary Care Nurse Name: Brandee Bee RN Position: [facility] RN Member Role: Primary Care Nurse Name: Janie Gamez RN Position: [facility] RN Member Role: Primary Care Nurse Name: Toby Trotter RN Position: [facility] RN Supv Member Role: Primary Care Nurse Name: Jing Santiago RN Position: [facility] RN Member Role: Primary Care Nurse Name: Sven Bustos RN Position: [facility] RN Member Role: Primary Care Nurse Name: Sharron Schaefer RN Position: [facility] RN Member Role: Primary Care Nurse Name: Franca Luis LPN Position: [facility] RN Member Role: Primary Care Nurse Name: Sheryl Linda RN Position: [facility] RN Member Role: Primary Care Nurse Name: Zara Aldridge RN Position: [facility] RN Member Role: Primary Care Nurse Name: Preet Sofia MD Position: [facility] Physician - Primary Care Member Role: PCP Address: Address: [address] [place] [address] Name: Betsey Harvey RN Position: [facility] RN Member Role: Primary Care Nurse Name: Camila Cervantes RN Position: [facility] RN Member Role: Primary Care Nurse Name: Aruna Warren RN Position: [facility] RN Member Role: Primary Care Nurse Name: Naomi Kyle RN Position: [facility] RN Member Role: Primary Care Nurse Name: Pavan Espinoza RN Position: [facility] RN Member Role: Primary Care Nurse Name: Lynne Shah RN Position: [facility] RN Member Role: Primary Care Nurse Name: Ashwini Larson RN Position: [facility] SN RN Member Role: Primary Care Nurse Name: Lorraine Good RN Position: [facility] RN Member Role: Primary Care Nurse Name: Mohan Quijano RN Position: [facility] RN Member Role: Primary Care Nurse Name: Shaina Nagy RN Position: [facility] RN Member Role: Primary Care Nurse Name: Sarah Gordon RN Position: [facility] Onco RN Member Role: Primary Care Nurse Name: Catalina Cook RN Position: [facility] RN Member Role: Primary Care Nurse Name: Yun Wadsworth RN Position: [facility] RN Member Role: Primary Care Nurse Name: Sweta Lang RN Position: [facility] RN Member Role: Primary Care Nurse Name: Kely Morton RN Position: [facility] RN Member Role: Primary Care Nurse Care Team Related Persons Name: DIAN RODGERS Address: [place] [address] Name: KT LANDEROS Address: [place] [address] Name: TAE QUIROZ Address: [place] [id number]
--- OUTSIDE RECORDS SUMMARY | 2023-01-20 23:56 | XMS_ITS | Continuity of Care Document ---
Author Name Unknown Organization [facility] Address [address] [place] [address]- Care Team Providers Care Equipment Maint Tech Name Role Phone Preet Sofia MD Primary Care Physician Encounter [facility] Date(s): 07/30/20 - 08/29/20 [facility]/[address] [address]- Allergies, Adverse Reactions, Alerts Substance Reaction Severity [...] 03/28/20 Not Given Patient Refuses 1Location History: [facility] 2Location History: [facility] 3Location History: [facility] 4Location History: [facility] Medications clopidogrel 75 mg oral tablet 75 mg, 1, tablet, By Mouth, Daily, # 90 tablet, Refills 3, Tot. Refills 3, Hard Stop 01/17/22 16:10:00 EDT, 01/22/21 16:10:00 EDT, Route to Pharmacy Electronically, [facility]/pharmacy [id number], home delivery please, 180, cm, 04/08/20 13:32:00 EST, Height, 181.... Start Date: 01/22/21 Stop Date: 01/17/22 Status: Ordered FLUoxetine 20 mg oral capsule 20 mg, 1, capsule, By Mouth, Daily, # 90 capsule, Refills 4, Tot. Refills 4, Maintenance, 06/26/20 17:25:00 EST, Route to Pharmacy Electronically, [facility], home delivery, 180, cm, 06/26/20 14:13:00 EST, Height, 181.6, kg, ... Start Date: 06/26/20 Status: Ordered furosemide 20 mg oral tablet 20 mg, 1, tablet, By Mouth, Daily in AM, # 90 tablet, Refills 3, Tot. Refills 3, Hard Stop 09/25/2115:36:00 EDT, 05/27/20 16:36:00 EST, [id number], 180, cm, 04/08/20 13:32:00 EST, Height... Start Date: 05/27/20 Stop Date: 09/24/20 Status: Ordered levothyroxine 0.05 mg oral tablet 1 tablet = 50 mcg, By Mouth, Daily, # 90 tablet, 4 Refills, Maintenance, 06/26/20 17:25:00 EST, Tablet, [facility], home delivery, 180, cm, 06/26/20 14:13:00 EST, Height, 181.6, kg, 03/27/20 14:58:00 EST, Dry Weight Start Date: 06/26/20 Status: Ordered metoprolol 25 mg oral tablet, extended release 25 mg, 1, tablet, By Mouth, Daily, # 90 tablet, Refills 4, Tot. Refills 4, Maintenance, 06/26/20 17:25:00 EST, Route to Pharmacy Electronically, [facility], home delivery, 180, cm, 06/26/20 14:13:00 EST, Height, 181.6, kg, 03/27/20... Start Date: 06/26/20 Status: Ordered nortriptyline 10 mg oral capsule 10 mg, 1, capsule, By Mouth, Daily, # 90 capsule, Refills 3, Tot. Refills 3, Maintenance, 06/26/20 17:28:00 EST, Route to Pharmacy Electronically, [facility], 180, cm, 06/26/20 14:13:00 EST, Height, 181.6, kg, 03/27/20 14:58:00 EST... Start Date: 06/26/20 Status: Ordered spironolactone 25 mg oral tablet 25 mg, 1, tablet, By Mouth, Daily, # 90 tablet, Refills 3, Tot. Refills 3, Maintenance, 06/26/20 17:25:00 EST, Route to Pharmacy Electronically, [facility], home delivery, 180, cm, 06/26/20 14:13:00 EST, Height, 181.6, kg, 03/27/20... Start Date: 06/26/20 Status: Ordered Problem List Condition Effective Dates [...] consistent with a cyst on CT at [facility] 04/2019(Confirmed) 04/2019 Active Coronary artery [...] Morbid obesity(Confirmed) Active Obstructive sleep apnea(Confirmed) Active Post traumatic stress disord er (PTSD)(Confirmed) 1999 Active 1-Seen in CT scan of the abdomen done at [facility] on 08-08-16 Social History Social History Type Response Smoking Status 10 or more cigarette s (1/2 pack or more)/day in last 30 days entered on: 05/14/20 Sex
--- OUTSIDE RECORDS SUMMARY | 2023-01-20 23:56 | XMS_ITS | Continuity of Care Document ---
Author Name Unknown Organization [facility] Address [address] [place] [address]- Care Team Providers Care Clinical Interviewer Name Role Phone Preet Sofia MD Primary Care Physician Encounter [facility] Date(s): 05/21/21 - 07/11/21 [facility] [address] [place] [id number] Attending Physician: Angela Jasmine MD Admitting Physician: Angela Jasmine MD Allergies, Adverse Reactions, Alerts No Known [...] 06/09/21 12:33:00 EST, Route to Pharmacy Electronically, [facility], 180, cm, 06/09/21 8:03:00 EST, Height, 168.5, kg, 06/03/21... Start Date: 06/09/21 Stop Date: 12/06/21 Status: Ordered atorvastatin 40 mg oral tablet 1 tablet = 40 mg, By Mouth, Daily at bedtime, for 30 days, # 30 tablet, 5 Refills, Hard Stop 12/06/21 12:33:00 EDT, 06/09/21 12:33:00 EST, Tablet, [facility], 180, cm, 06/09/21 8:03:00 EST, Height, 168.5, kg, 06/03/21 15:52:00 EST, Dry W... Start Date: 06/09/21 Stop Date: 12/06/21 Status: Ordered atorvastatin 80 mg oral tablet 1 tablet = 80 mg, By Mouth, Daily, # 30 tablet, 5 Refills, Maintenance, 07/02/21 18:30:00 EST, Tablet, [facility], Partial fill upon patient request if the prescription is for a schedule II opioid drug., 180, cm, 06/16/21 15:51:00 EST, Hei... Start Date: 07/02/21 Status: Ordered carvedilol 3.125 mg oral tablet 3.125 mg, 1, tablet, By Mouth, 2 times a day, # 60 tablet, Refills 11, Tot. Refills 11, Maintenance, 07/02/21 18:28:00 EST, Route to Pharmacy Electronically, [facility], 180, cm, 06/16/21 15:51:00 EST, Height, 168.5, kg, 06/03/21 15:52:00... Start Date: 07/02/21 Status: Ordered diclofenac 1% topical gel = [...] Stop 11/24/21 12:33:00EDT, 06/09/21 12:33:00 EST, Tablet, [facility], 180, cm, 06/09/21 [...] Moderate,Instr:remove patc... Start Date: 07/02/21 Status: Ordered nicotine 14 mg/24 hr transdermal film, extended release 1 patch, Topically, Daily, for 30 days, # 30 patch, 0 Refills, Acute 07/26/21 7:53:00 EDT, :53:00 EST, Patch, [facility], Partial fill upon patient request if the prescriptionis for a schedule II opioid drug., 1 patch Topicall... Start Date: 06/26/21 Stop Date: 07/26/21 Status: Ordered nitroglycerin 0.4 mg sublingual tablet 1 tablet = 0.4 mg, Sublingual, Every 5 minutes, PRN Chest Pain, # 100 tablet, 0 Refills, Maintenance, 06/09/21 12:34:00 EST, Tablet, [facility], Partial fill upon patient [...] Date: 06/09/21 Stop Date: 09/01/21 Status: Ordered [facility] Antifungal Extra Thick 2% topical cream 1 application, Topically, 2 times a day, to cracks in soles of feet, # 92 Gm, 0 Refills, Maintenance, 06/09/21 12:34:00 EST, Cream, [facility], Partial fill upon patient request if [...] 06/09/21 12:34:00 EST, Route to Pharmacy Electronically, [facility], home delivery, 180, cm, 06/09/21 8:03:00 EST, H... Start Date: 06/09/21 Stop Date: 12/06/21 Status: Ordered torsemide 20 mg oral tablet [...] consistent with a cyst on CT at [facility] 04/2019(Confirmed) 04/2019 Active Coronary artery [...] Morbid obesity(Confirmed) Active Obstructive sleep apnea(Confirmed) Active .Blanker Press Operator: Zoltan Diaz [phone], [facility]. CPP(Confirmed) Active Post traumatic stress disord er (PTSD)(Confirmed) 1999 Active Severe obesity(Confirmed) Active 1-Seen in CT scan of the abdomen done at [facility] on 08-08-16 Social History Social History Type Response Smoking Status 10 or more cigarette s (1/2 pack or more)/day in last 30 days; Interested in cessation: No; Patient wants NRT during admission No entered on: 06/03/21 Sex
--- OUTSIDE RECORDS SUMMARY | 2023-01-20 23:56 | XMS_ITS | Continuity of Care Document ---
Author Name Unknown Organization [facility] Address [address] [place] [address]- Care Team Providers Care Mobile Battery Technician Name Role Phone Preet Sofia MD Primary Care Physician Encounter [facility] Date(s): 05/11/21 - 05/13/[address] [address]- Encounter Diagnosis Chest pain(Final) - 05/11/21 Discharge Disposition: A-D/C Home Attending Physician: Preet Olivas MD Admitting Physician: Ayad Rios DO Referring Physician: Not on Staff, Referring MD [...] Status Refusal Reason influenza virus vaccine, inactivated 04/20/21 Not Given Patient Refuses influenza virus vaccine, inactivated 04/19/18 Not Given Patient Refuses pneumococcal 23-valent vaccine 03/28/20 Not Given Patient Refuses 1Location History: [facility] 2Location History: [facility] 3Location History: [facility] 4Location History: [facility] Medications aspirin 81 mg oral delayed release tablet 81 mg, By Mouth, Daily, # 30 tablet, Refills 5, Tot. Refills 5, Maintenance, 04/26/21 15:17:00 EST,Route to Pharmacy Electronically, [facility], 180, cm, 02/12/21 13:40:00 EDT, Height, 166, kg, 02/09/21 18:19:00 EDT, Dry Weight Start Date: 04/26/21 Stop Date: 10/23/21 Status: Ordered atorvastatin 40 mg oral tablet 1 tablet = 40 mg, By Mouth, Daily at bedtime, # 30 tablet, 5 Refills, Maintenance, 04/26/21 15:17:00 EST, Tablet, [facility], 180, cm, 02/12/21 13:40:00 EDT, Height, 166, kg, 02/09/2118:19:00 EDT, Dry Weight Start Date: 04/26/21 Stop Date: 10/23/21 Status: Ordered carvedilol 3.125 mg oral tablet 3.125 mg, Tablet, By Mouth, Hold for: HR<60, SBP<100, 05/13/21 9:00:00 EST Start Date: 05/13/21 Stop Date: 05/13/21 Status: Completed carvedilol 3.125 mg oral tablet 3.125 mg, 1, tablet, By Mouth, 2 times a day, # 56 tablet, Refills 5, Tot. Refills 5, Maintenance, 10/23/21 15:17:00 EDT, Route to Pharmacy Electronically, [facility], 180, cm, 02/12/21 13:40:00 EDT, Height, 166, kg, 02/09/21 18:19:00 EDT,... Start Date: 10/23/21 Status: Ordered Dilaudid Inj 1 mg, Injection, IV Push Slowly, Every 2 hours, PRN for Pain , Severe, Routine, 05/12/21 9:52:00 EST Start Date: 05/12/21 Stop Date: 05/13/21 Status: Discontinued Entresto 24 mg-26 mg oral tablet 1 tablet, By Mouth, 2 times a day, # 56 tablet, 5 Refills, Maintenance, 04/26/21 15:17:00 EST, Tablet, [facility], 1 tablet By Mouth 2 times a day,x28 days, 180, cm, 02/12/21 13:40:00EDT, Height, 166, kg, 02/09/21 18:19:00 EDT, Dry Weight Start Date: 04/26/21 Stop Date: 10/11/21 Status: Ordered FLUoxetine 40 mg oral capsule 1 capsule = 40 mg, By Mouth, Daily, dose increase at time of next scheduled refill, # 28 capsule, 5Refills, Maintenance, 02/13/21 15:34:00 EDT, Capsule, [facility], Partial fill uponpatient request if the prescription is for a schedule I... Start Date: 02/13/21 Status: Ordered levothyroxine 0.05 mg oral tablet 1 tablet = 50 mcg, By Mouth, Daily, # 30 tablet, 5 Refills, Maintenance, 04/26/21 15:17:00 EST, Tablet, [facility], home delivery, 180, cm, 02/12/21 13:40:00 EDT, Height, 166, kg, 02/09/21 18:19:00 EDT, Dry Weight Start Date: 04/26/21 Stop Date: 10/23/21 Status: Ordered Nicoderm C-Q Clear 21 mg/24 hr transdermal film, extended release 1 patch, Topically, Daily, # 30 patch, 0 Refills, Acute 05/24/21 15:45:00 EST, 04/23/21 15:45:00 EST, Patch, [facility], Partial fill upon patient request if the prescription is for a schedule II opioid drug., 180, cm, 04/23/21 14:40:00... Start Date: 04/23/21 Stop Date: 05/24/21 Status: Ordered nitroglycerin 0.4 mg sublingual tablet 1 tablet = 0.4 mg, Sublingual, Every 5 minutes, PRN Chest Pain, # 100 tablet, 0 Refills, Maintenance, 04/23/21 15:45:00 EST, Tablet, [facility], Partial fill upon patient request if theprescription is for a schedule II opioid drug., 180... Start Date: 04/23/21 Status: Ordered pantoprazole 20 mg oral delayed release tablet = 20 mg, By Mouth, Daily, # 28 capsule, 2 Refills, Maintenance, 04/26/21 15:17:00 EST, EC Tablet, 180, cm, 02/12/21 13:40:00 EDT, Height, 166, kg, 02/09/21 18:19:00 EDT, Dry Weight Start Date: 04/26/21 Stop Date: 07/19/21 Status: Ordered [facility] Antifungal Extra Thick 2% topical cream 1 application, Topically, 2 times a day, to cracks in soles of feet, # 92 Gm, 0 Refills, Maintenance, 02/13/21 15:41:00 EDT, Cream, [facility], Partial fill upon patient request if the prescription is for a schedule II opioid drug., 1 appl... Start Date: 02/13/21 Status: Ordered spironolactone 25 mg oral tablet 25 mg, 1, tablet, By Mouth, Daily, # 30 tablet, Refills 5, Tot. Refills 5, Maintenance, 04/26/21 15:17:00 EST, Route to Pharmacy Electronically, [facility], home delivery, 180, cm, 02/12/21 13:40:00 EDT, Height, 166, kg, 02/09/21 18:19:00... Start Date: 04/26/21 Stop Date: 10/23/21 Status: Ordered torsemide 20 mg oral tablet 2 tablet = 40 mg, By Mouth, Daily, # 60 tablet, 0 Refills, Maintenance, 05/13/21 15:16:00 EST, Tablet, Partial fill upon patient request if the prescription is for a schedule II opioid drug. Start Date: 05/13/21 Status: Ordered traZODone 50 mg oral tablet 50 mg, 1, tablet, By Mouth, Daily at bedtime, # 30 tablet, Refills 5, Tot. Refills 5, Maintenance, 05/09/21 20:43:00 EST, Route to Pharmacy Electronically, [facility], 180, cm, 05/06/21 9:22:00 EST, Height, 172.7, kg, 04/19/21 10:13:00 EST... Start Date: 05/09/21 Status: Ordered Problem List Condition Effective Dates [...] consistent with a cyst on CT at [facility] 04/2019(Confirmed) 04/2019 Active Coronary artery [...] Morbid obesity(Confirmed) Active Obstructive sleep apnea(Confirmed) Active .Senior Business Development Analyst: Zoltan Diaz [phone], [facility]. BHCPP(Confirmed) Active Post traumatic stress disord er (PTSD)(Confirmed) 1999 Active Severe obesity(Confirmed) Active 1-Seen in CT scan of the abdomen done at [facility] on 08-08-16 Results Radiology Reports * Exam Date Time Procedure Performing Provider Status 05/10/21 11:14 PM Chest 2 Views Frontal and Lat Lise Martinez; Auth (Verified) Notes: (Chest 2 Views Frontal and Lat) Reason For Exam: Angina RESULT: Chest 2 Views Frontal and Lat Chest 2 Views Frontal and Lat INDICATION: Chest pain radiating to the left arm COMPARISON: X-ray 04/19/2021, CT and x-ray 09/14/2020 FINDINGS: Limited examination due to patient's body habitus /underpenetration, and exclusion of the peripheryof the left lung base from the [id number]. LINES AND TUBES: None. LUNGS AND PLEURA: Low lung volumes with bronchovascular crowding. Prominent right epicardial fat pad as seen on priorCT. Apparent opacification of the left lower lung, with similar appearance on x-ray from 09/14/2020,when the same-day CT did not demonstrate any associated left lower lung abnormality; this is likely artifactual due to superimposition of soft tissues. No pleural effusion. No pneumothorax. HEART, MEDIASTINUM AND CAROLA: Moderate prominence of the cardiac silhouette. Normal upper mediastinal and hilar contour. BONES AND SOFT TISSUES: No acute abnormality. IMPRESSION: Limited examination. Low lung volumes with bronchovascular crowding. Note that mild pulmonary edemaor atypical/viral pneumonia cannot be excluded due to limitations of this study. I have personally reviewed the images and I agree with this report. WSN: [id number] Ordering Physician: Mandi Cuellar Dictated By: Ronnie Bosch DO Dictated Date/Time: 05/10/21 11:22 p Reviewed By: Nilton Jiménez MD Signed By: Nilton Jiménez MD Signed Date/Time: 05/10/21 11:27 pm Transcribed By: SHANNA Transcribed Date/Time: 05/10/21 11:21 pm Vital Signs Most recent to oldest [Reference Range]: 1 2 3 Height 180 cm (05/13/21 1:15 PM) 180 cm (05/13/21 11:36 AM) 180 cm (05/13/21 7:22 AM) Weight 185 kg (05/13/21 6:04 AM) Oxygen Saturation [94-100 %] 95 % (05/13/21 1:15 PM) 97 % (05/13/21 11:36 AM) 100 % (05/13/21 7:22 AM) Pulse Rate [55-90 bpm] 50 bpm *L* (05/13/21 11:36 AM) 57 bpm (05/13/21 7:27 AM) 57 bpm (05/13/21 7:22 AM) Blood Pressure [90-138/55-84 mm Hg] 116/69mm Hg (05/13/21 11:36 AM) 122/65mm Hg (05/13/21 7:27 AM) 122/65mm Hg (05/13/21 7:22 AM) Respiratory Rate [16-30 br/min] 20 br/min (05/13/21 1:15 PM) 20 br/min (05/13/21 12:17 PM) 20 br/min (05/13/21 11:36 AM) Temperature [96.8-100.4 DegF] 97.6 DegF (05/13/21 11:36 AM) 97.4 DegF (05/13/21 7:22 AM) 97.7 DegF (05/13/21 4:28 AM) Liters per Minute 4 L/min (05/13/21 11:36 AM) 4 L/min (05/13/21 7:22 AM) 2 L/min (05/12/21 9:43 PM) Mode of Delivery (Oxygen) Room air (05/13/21 1:15 PM) Nasal cannula (05/13/21 11:36 AM) Nasal cannula (05/13/21 7:22 AM) Blood pressure sites Arm, right (05/13/21 11:36 AM) Arm, right (05/13/21 7:22 AM) Arm, right (05/13/21 4:28 AM) Temperature Route Oral (05/13/21 11:36 AM) Oral (05/13/21 7:22 AM) Oral (05/13/21 4:28 AM) Weight Obtained Via Standing scale (05/13/21 6:04 AM) Social History Social History Type Response Smoking Status 10 or more cigarette s (1/2 pack or more)/day in last 30 days; Other: [id number]; entered on: 09/03/20 Sex
--- OUTSIDE RECORDS SUMMARY | 2023-01-20 23:56 | XMS_ITS | Continuity of Care Document ---
Author Name Unknown Organization [facility] Address [address] [place] [id number]- Care Team Providers Care Cna Per Diem Name Role Phone Preet Sofia MD Primary Care Physician [phone] Encounter [facility] Date(s): 10/14/22 - 11/13/22 [facility] [address]- [place] Allergies, Adverse Reactions, Alerts No Known [...] Patient Refuses 1Location History: [facility] 2Location History: [facility] 3Location History: [facility] 4Location History: [facility] Medications aspirin 81 mg oral [...] 3 Refills, Maintenance, 10/19/22 20:02:00 EDT, Tablet, [id number], 180, cm, 10/19/22 4:49:00 EDT, Height, [...] 10/19/22 20:05:00 EDT, Route to Pharmacy Electronically, [id number], 180, cm, 10/19/22 4:49:00 EDT, Height, 181, kg, 09/26/22 14:48:00 EDT, Dry W... Start Date: 10/19/22 Status: Ordered Dilaudid 2 mg oral tablet See Instructions, PRN Pain , Severe, 1 tablet By Mouth every 4 hours up to 3x/day during daytime asneeded for severe pain. 7 day or more supply., # 21 tablet, 0 Refills, Maintenance, 11/10/22 20:43:00 EDT, Tablet, [id number], Partial fill upo... Start Date: 11/10/22 Status: Ordered duloxetine 30 mg oral enteric coated capsule 1 capsule = 30 mg, By Mouth, Daily at bedtime, # 30 capsule, 1 Refills, Maintenance, 10/12/22 12:25:00 EDT, Capsule, [facility], Partial fill upon patient request if the prescription isfor a schedule II opioid drug., 180, cm, 10/12/22 1... Start Date: 10/12/22 Stop Date: 12/11/22 Status: Ordered Entresto 24 mg-26 mg oral tablet 1 tablet, By Mouth, 2 times a day, # 60 tablet, 5 Refills, Maintenance, 10/19/22 20:09:00 EDT, Tablet, [id number], 1 tablet By Mouth 2 times [...] 3 Refills, Maintenance, 10/19/22 20:06:00 EDT, Tablet, [id number], 180, cm, 10/19/22 4:49:00 EDT, Height, [...] Refills, Maintenance, 06/09/21 12:34:00 EST, Tablet, [facility], Partial fill upon patient [...] 10/19/22 20:09:00 EDT, Route to Pharmacy Electronically, [id number], 180, cm, 10/19/22 4:49:00 EDT, Height, [...] 5 Refills, Maintenance, 10/19/22 20:12:00 EDT, Tablet, [id number], 180, cm, 10/19/22 4:49:00 EDT, Height, [...] consistent with a cyst on CT at [facility] 04/2019 Confirmed 04/2019 Active Coronary artery [...] Confirmed Active Obstructive sleep apnea Confirmed Active .Cigar Binder: Lucita Segal [phone], [facility]. [facility] Confirmed Active Post traumatic stress disorder (PTSD) Confirmed 1999 Active Severe obesity Confirmed Active 1-Seen in CT scan of the abdomen done at [facility] on 08-08-16 Social History Social History [...] Care Nurse Name: Brittny Griffin RN Position: [facility] RN Member Role: Primary Care Nurse Name: Rickey Cruz RN Position: [facility] RN Member Role: Primary Care Nurse Name: Brandee Bee RN Position: [facility] RN Member Role: Primary Care Nurse Name: Janie Gamez RN Position: [facility] RN Member Role: Primary Care Nurse Name: Jing Santiago RN Position: [facility] RN Member Role: Primary Care Nurse Name: Sven Bustos RN Position: [facility] RN Member Role: Primary Care Nurse Name: Sharron Schaefer RN Position: [facility] RN Member Role: Primary Care Nurse Name: Franca Luis LPN Position: [facility] RN Member Role: Primary Care Nurse Name: Sheryl Linda RN Position: [facility] RN Member Role: Primary Care Nurse Name: Zara Aldridge RN Position: [facility] RN Member Role: Primary Care Nurse Name: Preet Sofia MD Position: [facility] Physician - Primary Care Member Role: PCP Address: Address: [address] [place] [address] Name: Betsey Harvey RN Position: [facility] RN Member Role: Primary Care Nurse Name: Camila Cervantes RN Position: [facility] RN Member Role: Primary Care Nurse Name: Aruna Warren RN Position: [facility] RN Member Role: Primary Care Nurse Name: Naomi Kyle RN Position: [facility] RN Member Role: Primary Care Nurse Name: Pavan Espinoza RN Position: [facility] RN Member Role: Primary Care Nurse Name: Lynne Shah RN Position: [facility] RN Member Role: Primary Care Nurse Name: Naomi Mcadams RN Position: [facility] RN Member Role: Primary Care Nurse Name: Ashwini Larson RN Position: [facility] SN RN Member Role: Primary Care Nurse Name: Darren Ortega RN Position: [facility] RN Member Role: Primary Care Nurse Name: Lorraine Good RN Position: [facility] RN Member Role: Primary Care Nurse Name: Mohan Quijano RN Position: [facility] RN Member Role: Primary Care Nurse Name: Shaina Nagy RN Position: [facility] RN Member Role: Primary Care Nurse Name: Sarah Gordon RN Position: [facility] Onco RN Member Role: Primary Care Nurse Name: Catalina Cook RN Position: [facility] RN Member Role: Primary Care Nurse Name: Sweta Lang RN Position: S RN Member Role: Primary Care Nurse Name: Selene SANDERSON, Kely Eng Position: S RN Member Role: Primary Care Nurse Care Team Related Persons Name: DIAN RODGERS Address: [place] [address] Name: KT LANDEROS Address: [place] [address] Name: TAE QUIROZ Address: home [place]KNOWN [facility]
--- OUTSIDE RECORDS SUMMARY | 2023-01-20 23:56 | XMS_ITS | Continuity of Care Document ---
Author Name Unknown Organization [facility] Address [address] [place] [address]- Care Team Providers Care Biostatistics Professor Name Role Phone Preet Sofia MD Primary Care Physician Encounter [facility] Date(s): 12/17/21 - 01/16/22 [facility] [address]- Attending Physician: Alexis Daigle Admitting Physician: Admtr, ArKeith Referring Physician: Admtr, Ar8 Allergies, Adverse Reactions, [...] History: [facility] 3Location History: [facility] 4Location History: [facility] Medications aspirin 81 mg oral delayed release tablet 81 mg, By Mouth, Daily, # 30 tablet, Refills 11, Tot. Refills 11, Maintenance, 12/06/21 12:33:00 EDT, Route to Pharmacy Electronically, [facility], 180, cm, 06/16/21 15:51:00 EST, Height, 168.5, kg, 06/03/21 15:52:00 EST, Dry Weight Start Date: 12/06/21 Status: Ordered Aspirin Low Dose 81 mg oral delayed release tablet 1 tablet = 81 mg, By Mouth, Daily, # 30 tablet, 0 Refills, Maintenance, 12/11/21 16:38:00 EDT, EC Tablet, Partial fill upon patient request if the prescription is for a schedule II opioid drug. Start Date: 12/11/21 Status: Ordered atorvastatin 80 mg oral tablet 1 tablet, By Mouth, Daily, # 28 tablet, 1 Refills, [facility], 180, cm, 11/03/21 2:14:00 EDT, Height, 184, kg, 11/01/21 11:27:00 EDT, Dry Weight Start Date: 11/09/21 Status: Ordered atorvastatin 80 mg oral tablet 1 tablet = 80 mg, By Mouth, Daily, # 90 tablet, 0 Refills, Maintenance, 12/11/21 16:38:00 EDT, Tablet, Partial fill upon patient request if the prescription is for a schedule II opioid drug. Start Date: 12/11/21 Status: Ordered betamethasone-clotrimazole 0.05%-1% topical cream 1 [...] a day, # 180 tablet, Refills 0, Maintenance, 12/11/21 16:38:00 EDT, Partial fill upon patient request if the prescription is for a schedule II opioid drug. Start Date: 12/11/21 Status: Ordered carvedilol 6.25 mg oral tablet 6.25 mg, 1, tablet, By Mouth, 2 times a day, for heart and blood pressure, # 60 tablet, Refills 5, Tot. Refills 5, Maintenance, 08/16/21 15:35:00 EDT, Route to Pharmacy Electronically, [facility], 180, cm, 08/12/21 8:38:00 EDT, [...] Dry Weight Start Date: 07/02/21 Status: Ordered FLUoxetine 40 mg oral capsule 1 capsule = 40 mg, By Mouth, Daily, # 30 capsule, 0 Refills, Maintenance, 12/11/21 16:38:00 EDT, Capsule, Partial fill upon patient request if the prescription is for a schedule II opioid drug. Start Date: 12/11/21 Status: Ordered levothyroxine 0.2 mg oral tablet = 200 mcg, By Mouth, Daily, # 30 tablet, 11 Refills, Maintenance, 07/02/21 18:28:00 EST, Tablet, [facility], 180, cm, 06/16/21 15:51:00 EST, Height, 168.5, kg, 06/03/21 15:52:00 EST, Dry Weight Start Date: 07/02/21 Status: Ordered levothyroxine 0.2 mg oral tablet 1 tablet = 200 mcg, By Mouth, Daily, # 30 tablet, 0 Refills, Maintenance, 12/11/21 16:38:00 EDT, Tablet, Partial fill upon patient request if the prescription is for a schedule II opioid drug. Start Date: 12/11/21 Status: Ordered nitroglycerin 0.4 mg sublingual tablet 1 tablet = 0.4 mg, Sublingual, Every 5 minutes, PRN Chest Pain, # 100 tablet, 0 Refills, Maintenance, 06/09/21 12:34:00 EST, Tablet, [facility], Partial fill upon patient request if theprescription is for a schedule II opioid drug., 180... Start Date: 06/09/21 Status: Ordered oxyCODONE 5 mg oral capsule TAKE 1 CAPSULE BY MOUTH EVERY 6 HOURS NEEDED FOR SEVERE PAIN Start Date: 12/11/21 Status: Ordered pantoprazole 20 mg oral delayed release tablet 1 tablet = 20 mg, By Mouth, Daily, # 30 tablet, 0 Refills, Maintenance, 12/11/21 16:37:00 EDT, CR Tablet Start Date: 12/11/21 Status: Ordered spironolactone 25 mg oral tablet [...] 11:03:00 EDT, Aerosol, Route to Pharmacy Electronically, [id number]... Start Date: 07/29/21 Status: Ordered torsemide 20 mg oral tablet 2 tablet = 40 mg, By Mouth, 2 times a day, # 120 tablet, 5 Refills, Maintenance, 09/23/21 16:07:00 EDT, Tablet, [facility], 180, cm, 08/26/21 12:41:00 EDT, Height, 175.7, kg, 08/25/:22:00 EDT, Dry Weight Start Date: 09/23/21 Status: [...] consistent with a cyst on CT at [facility] 04/2019(Confirmed) 04/2019 Active Coronary artery disease, hx [...] Morbid obesity(Confirmed) Active Obstructive sleep apnea(Confirmed) Active .Sow Farm Barn Technician: Tejas Segal [phone], [facility]. BHCPP(Confirmed) Active Post traumatic stress disord er (PTSD)(Confirmed) 1999 Active Severe obesity(Confirmed) Active 1-Seen in CT scan of the abdomen done at [facility] on 4-16-17 Social History Social History Type Response Smoking Status 10 or more cigarette s (1/2 pack or more)/day in last 30 days; Interested in cessation: No; Patient wants NRT during admission No entered on: 06/03/21 Sex Care Team Personnel Name: Preet Sofia MD Address: [address] [place] [address]
--- OUTSIDE RECORDS SUMMARY | 2023-01-20 23:56 | XMS_ITS | Continuity of Care Document ---
Author Name Unknown Organization [facility] Address [address] [place] [address]- Care Team Providers Care College Physics Instructor Name Role Phone Preet Sofia MD Primary Care Physician [place] [facility] [place]01[place]20 [facility] [address] [place] [address]- Allergies, Adverse Reactions, Alerts Substance Reaction Severity [...] Not Given Patient Refuses 1Location History: formerly [facility] 2Location History: [facility] 3Location History: [facility] 4Location History: [facility] Medications aspirin 81 mg oral delayed release tablet 81 mg, 1, tablet, By Mouth, Daily, # 90 tablet, Refills 3, Tot. Refills 3, Maintenance, 01/22/21 16:35:00 EDT, Route to Pharmacy Electronically, [facility]/pharmacy #[id number], home delivery please, 180, cm, 04/08/20 13:32:00 EST, Height, 181.6, kg, 03/27/20 14:5... Start Date: 01/22/21 Stop Date: 01/17/22 Status: Ordered aspirin 81 mg oral delayed release tablet 81 mg, 1, tablet, By Mouth, Daily, for 30 days, # 30 tablet, Refills 11, Tot. Refills 11, Hard Stop01/22/21 16:35:00 EDT, 01/28/20 16:35:00 EDT, Route to Pharmacy Electronically, [facility], 180.3, cm, 01/28/20 12:32:00 EDT, Height, 168... Start Date: 01/28/20 Stop Date: 01/22/21 Status: Ordered atorvastatin 40 mg oral tablet 1 tablet = 40 mg, By Mouth, Daily at bedtime, # 90 tablet, 3 Refills, Maintenance, 04/27/20 16:36:00 EST, Tablet, [facility]/pharmacy #1972, home delivery please, 180, cm, 04/08/20 13:32:00 EST, Height, 181.6, kg, 03/27/20 14:58:00 EST, Dry Weight Start Date: 04/27/20 Stop Date: 07/26/20 Status: Ordered clopidogrel 75 mg oral tablet 75 mg, 1, tablet, By Mouth, Daily, # 90 tablet, Refills 3, Tot. Refills 3, Maintenance, 01/22/21 16:10:00 EDT, Route to Pharmacy Electronically, [facility]/pharmacy #1972, home delivery please, 180, cm, 04/08/20 13:32:00 EST, Height, 181.6, kg, 03/27/20 14:5... Start Date: 01/22/21 Stop Date: 01/17/22 Status: Ordered clopidogrel 75 mg oral tablet 75 mg, 1, tablet, By Mouth, Daily, for 30 days, # 30 tablet, Refills 11, Tot. Refills 11, Hard Stop01/22/21 16:10:00 EDT, 01/28/20 16:10:00 EDT, Route to Pharmacy Electronically, [facility], 180.3, cm, 01/28/20 12:32:00 EDT, Height, 168... Start Date: 01/28/20 Stop Date: 01/22/21 Status: Ordered diclofenac 1% topical gel = 2 Gm, Topically, 4 times a day, PRN for pain, not to exceed 16 grams/day/single joint of lower extremities not to exceed 32 grams/day total, # 100 Gm, 2 Refills, Maintenance, 04/10/20 0:45:00 EST, Gel, [facility], Partial fill upon patien... Start Date: 04/10/20 Status: Ordered FLUoxetine 20 mg oral capsule 20 mg, 1, capsule, By Mouth, Daily, # 90 capsule, Refills 4, Tot. Refills 4, Maintenance, 04/13/20 14:28:00 EST, Route to Pharmacy Electronically, [facility], home delivery please, 180, cm, 04/08/20 13:32:00 EST, Height, 181.6, kg, 03/27/20 14... Start Date: 04/13/20 Status: Ordered furosemide 20 mg oral tablet 20 mg, 1, tablet, By Mouth, Daily in AM, # 90 tablet, Refills 3, Tot. Refills 3, Maintenance, 05/27/20 16:36:00 EST, Route to Pharmacy Electronically, [facility]/pharmacy #1972, home delivery please, 180, cm, 04/08/20 13:32:00 EST, Height, 181.6, kg, ... Start Date: 05/27/20 Stop Date: 09/24/20 Status: Ordered furosemide 20 mg oral tablet 20 mg, 1, tablet, By Mouth, Daily in AM, for 30 days, # 30 tablet, Refills 3, Tot. Refills 3, Hard Stop 05/27/20 16:36:00 EST, 01/28/20 16:36:00 EDT, Route to Pharmacy Electronically, [facility], 180.3, cm, 01/28/20 12:32:00 EDT, Height,... Start Date: 01/28/20 Stop Date: 05/27/20 Status: Ordered levothyroxine 0.05 mg oral tablet 1 tablet = 50 mcg, By Mouth, Daily, # 90 tablet, 4 Refills, Maintenance, 04/13/20 14:28:00 EST, Tablet, [facility]/pharmacy #1972, home delivery please, 180, cm, 04/08/20 13:32:00 EST, Height, 181.6, kg, 03/27/20 14:58:00 EST, Dry Weight Start Date: 04/13/20 Stop Date: 06/12/20 Status: Ordered lisinopril 5 mg oral tablet 2.5 mg, 0.5, tablet, By Mouth, Daily, # 15 tablet, Refills 2, Tot. Refills 2, Maintenance, 04/27/2115:12:00 EST, Route to Pharmacy Electronically, [facility]/pharmacy #1972, home delivery please, 180, cm, 04/08/20 13:32:00 EST, Height, 181.6, kg, 03/27/20 1... Start Date: 04/27/20 Stop Date: 07/26/20 Status: Ordered metoprolol 25 mg oral tablet, extended release 25 mg, 1, tablet, By Mouth, Daily, # 90 tablet, Refills 4, Tot. Refills 4, Maintenance, 04/27/20 16:36:00 EST, Route to Pharmacy Electronically, [facility]/pharmacy #1972, home delivery please, 180, cm, 04/08/20 13:32:00 EST, Height, 181.6, kg, 03/27/20 14:5... Start Date: 04/27/20 Stop Date: 07/26/20 Status: Ordered omeprazole 20 mg oral delayed release tablet 1 tablet = 20 mg, By Mouth, Daily, PRN gastroesophageal acid reflux, # 30 tablet, 1 Refills, Maintenance, 04/13/20 14:37:00 EST, CR Tablet, [facility]/pharmacy #1972, Partial fill upon patient request if the prescription is for a schedule II opioid drug., 18... Start Date: 04/13/20 Status: Ordered ondansetron 4 mg oral tablet 1 tablet = 4 mg, By Mouth, Every 8 hours, PRN as needed for nausea/vomiting, 0 Refills, Maintenance, 01/26/20 15:50:00 EDT, Tablet Start Date: 01/26/20 Status: Ordered pantoprazole 20 mg oral delayed release tablet 1 tablet = 20 mg, By Mouth, Daily, PRN gastric reflux pain, # 30 tablet, 0 Refills, Maintenance, 01/28/20 16:36:00 EDT, CR Tablet, 180.3, cm, 01/28/20 12:32:00 EDT, Height, 168.2, kg, 01/24/20 13:31:00 EDT, Dry Weight Start Date: 01/28/20 Stop Date: 02/27/20 Status: Ordered spironolactone 25 mg oral tablet 25 mg, 1, tablet, By Mouth, Daily, # 90 tablet, Refills 3, Tot. Refills 3, Maintenance, 04/27/20 16:35:00 EST, Route to Pharmacy Electronically, [facility]/pharmacy #1972, home delivery please, 180, cm, 04/08/20 13:32:00 EST, Height, 181.6, kg, 03/27/20 14:5... Start Date: 04/27/20 Stop Date: 07/26/20 Status: Ordered Problem List Condition Effective Dates [...] consistent with a cyst on CT at [facility] 04/2019(Confirmed) 04/2019 Active Coronary artery [...] scan of the abdomen done at [facility] on 08-08-16 Social History Social History Type Response Smoking Status 10 or more cigarette s (1/2 pack or more)/day in last 30 days; Other: [id number]; entered on: 01/25/20 Sex
--- OUTSIDE RECORDS SUMMARY | 2023-01-20 23:56 | XMS_ITS | Continuity of Care Document ---
Author Name Unknown Organization [facility] Address [address] [place] [address]- Care Team Providers Care Reefer Engineer Name Role Phone Preet Sofia MD Primary Care Physician Encounter [facility] Date(s): 11/09/22 - 12/09/22 [facility]/[place] [address]- [place] Allergies, Adverse Reactions, Alerts No Known Allergies Immunizations Given and Recorded Vaccine Date Status Refusal Reason SARS-CoV-2 (COVID-19) [id number] vaccine 05/11/21 G iven influenza virus vaccine, inactivated 1 02/08/14 Re corded hepatitis B adult vaccine 01/22/13 Recorded hepatitis B adult vaccine 08/12/10 Recorded hepatitis B adult vaccine 2 03/09/10 Recorded Hepatitis A Adult Vaccine 3 08/12/10 Recorded Hepatitis A Adult Vaccine 4 02/27/10 Recorded 1[facility] History[facility] 2[facility] History: [facility] 3Location History: [facility] 4Location History: [facility] Medications aspirin 81 mg oral delayed release tablet 1 tablet = 81 mg, By Mouth, Daily, # 90 tablet, 3 Refills, Maintenance, 12/10/22 1:31:00 EDT, CR Tablet, [id number], 178, cm, 11/22/22 18:01:00 EDT, Height, 164.9, kg, 11/18/22 18:49:00 EDT, Dry Weight Start Date: 12/10/22 Status: Ordered atorvastatin 80 mg oral tablet 1 tablet = 80 mg, By Mouth, Daily, for 30 days, # 30 tablet, 0 Refills, Hard Stop 12/22/22 14:06:00EDT, 11/22/22 14:06:00 EDT, Tablet, [id number], 178, cm, 11/22/22 11:40:00 EDT, Height, 164.9, kg, 11/18/22 18:49:00 EDT, Dry Weight Start Date: 11/22/22 Stop Date: 12/22/22 Status: Ordered atorvastatin 80 mg oral tablet 1 tablet = 80 mg, By Mouth, Daily, # 30 tablet, 11 Refills, Maintenance, 12/22/22 14:06:00 EDT, Tablet, [facility]/pharmacy #[id number], 178, cm, 11/22/22 18:01:00 EDT, Height, [...] carvedilol 3.125 mg oral tablet 3.125 mg, By Mouth, 2 times a day, for 30 days, # 60 tablet, Refills 0, Tot. Refills 0, Hard Stop 12/22/22 14:14:00 EDT, 11/22/22 14:14:00 EDT, Route to Pharmacy Electronically, [facility]/pharmacy #[id number], Partial fill upon patient request if the prescription... Start Date: 11/22/22 Stop Date: 12/22/22 Status: Ordered carvedilol 3.125 mg oral tablet 3.125 mg, By Mouth, 2 times a day, # 60 tablet, Refills 5, Tot. Refills 5, Maintenance, 12/22/22 14:14:00 EDT, Route to Pharmacy Electronically, [facility]/pharmacy #[id number], 178, cm, 11/22/22 18:01:00 EDT, Height, 164.9, kg, 11/18/22 18:49:00 EDT, Dry Weight Start Date: 12/22/22 Status: Ordered Chem 7 [...] 0 Refills, Maintenance, 12/06/22 13:35:00 EDT, Tablet, [facility] Start Date: 12/06/22 Status: Ordered duloxetine 30 mg oral enteric coated capsule 1 capsule = 30 mg, By Mouth, Daily at bedtime, for 30 days, # 30 capsule, 1 Refills, Hard Stop 01/21/23 14:06:00 EDT, 11/22/22 14:06:00 EDT, Capsule, [facility]/pharmacy #[id number], Partial fill upon patient request if the prescription is for a schedule II opioid... Start Date: 11/22/22 Stop Date: 01/21/23 Status: Ordered duloxetine 30 mg oral enteric coated capsule 1 capsule = 30 mg, By Mouth, Daily at bedtime, # 30 capsule, 5 Refills, Maintenance, 01/21/23 14:06:00 EDT, Capsule, [facility]/pharmacy #[id number], Partial fill upon patient request if the prescription is for aschedule II opioid drug., 178, cm, 11/22/22 18:01:0... Start Date: 01/21/23 Stop Date: 07/20/23 Status: Ordered Eliquis 5 mg oral tablet 1 tablet = 5 mg, By Mouth, 2 times a day, # 60 tablet, 5 Refills, Maintenance, 12/10/22 1:31:00 EDT, Tablet, [id number], Partial fill upon patient request if the prescription is for a schedule II opioid drug., 178, cm, 11/22/22 18:01:00 EDT, H... Start Date: 12/10/22 Status: Ordered Entresto 24 mg-26 mg oral tablet 1 tablet, By Mouth, 2 times a day, for 30 days, # 60 tablet, 0 Refills, Hard Stop 12/22/22 14:07:00EDT, 11/22/22 14:07:00 EDT, Tablet, [id number], 178, cm, 11/22/22 11:40:00 EDT, Height, 164.9, kg, 11/18/22 18:49:00 EDT, Dry Weight Start Date: 11/22/22 Stop Date: 12/22/22 Status: Ordered Entresto 24 mg-26 mg oral tablet 1 tablet, By Mouth, 2 times a day, # 60 tablet, 5 Refills, Maintenance, 12/22/22 14:07:00 EDT, Tablet, [id number], 1 tablet By Mouth 2 times [...] 03/22/23 14:07:00 EST, 11/22/22 14:07:00 EDT, Tablet, [facility]/pharmacy #[id number], 178, cm, 11/22/22 11:40:00 EDT, Height, 164.9, kg, 11/18/22 18:49:00 EDT, Dry Weight Start Date: 11/22/22 Stop Date: 03/22/23 Status: Ordered levothyroxine 0.2 mg oral tablet 1 tablet = 200 mcg, By Mouth, Daily, # 30 tablet, 11 Refills, Maintenance, 03/22/23 14:07:00 EST, Tablet, [id number], 178, cm, 11/22/22 18:01:00 [...] Refills, Maintenance, 10/19/22 20:08:00 EDT, REC Powder, [facility]/pharmacy #[id number], 17 Gm By Mouth Daily,PRN:Constipation,Instr:dissolve in water before taking, 180, cm,... Start Date: 10/19/22 Status: Ordered nitroglycerin 0.4 mg sublingual tablet 1 tablet = 0.4 mg, Sublingual, Every 5 minutes, PRN Chest Pain, # 100 tablet, 0 Refills, Maintenance, 06/09/21 12:34:00 EST, Tablet, [facility], Partial fill upon patient request if theprescription is for a schedule II opioid drug., 180... Start Date: 06/09/21 Status: Ordered pantoprazole 20 mg oral delayed release tablet 1 tablet = 20 mg, By Mouth, Daily, for 30 days, # 30 tablet, 1 Refills, Hard Stop 01/21/23 14:07:00EDT, 11/22/22 14:07:00 EDT, EC Tablet, 178, cm, 11/22/22 11:40:00 EDT, Height, 164.9, kg, 11/18/22 18:49:00 EDT, Dry Weight Start Date: 11/22/22 Stop Date: 01/21/23 Status: Ordered pantoprazole 20 mg oral delayed [...] for 30 days, # 30 tablet, Refills 0, Tot. Refills 0, Hard Stop 12/22/22 14:07:00 EDT, 11/22/22 14:07:00 EDT, Route to Pharmacy Electronically, [facility]/pharmacy #[id number], 178, cm, 11/22/22 11:40:00 EDT, Height, 164.9, kg, 07... Start Date: 11/22/22 Stop Date: 12/22/22 Status: Ordered spironolactone 25 mg oral tablet 25 mg, 1, tablet, By Mouth, Daily, # 30 tablet, Refills 5, Tot. Refills 5, Maintenance, 12/22/22 14:07:00 EDT, Route to Pharmacy Electronically, [facility]/pharmacy #[id number], 178, cm, 11/22/22 18:01:00 EDT, Height, [...] 14:06:00 EDT, Aerosol, Route to Pharmacy Electronically, [id number]... Start Date: 11/22/22 Status: Ordered torsemide 20 mg oral tablet 1 tablet = 20 mg, By Mouth, 2 times a day, for 30 days, # 60 tablet, 0 Refills, Hard Stop 12/22/22 14:08:00 EDT, 11/22/22 14:08:00 EDT, Tablet, [facility]/pharmacy #[id number], 178, cm, 11/22/22 11:40:00 EDT, Height, 164.9, kg, 11/18/22 18:49:00 EDT, Dry Weight Start Date: 11/22/22 Stop Date: 12/22/22 Status: Ordered torsemide 20 mg oral tablet 1 tablet = 20 mg, By Mouth, 2 times a day, # 60 tablet, 5 Refills, Maintenance, 12/22/22 14:08:00 EDT, Tablet, [id number], 178, cm, 11/22/22 18:01:00 EDT, Height, 164.9, kg, 11/18/22 18:49:00EDT, Dry Weight Start Date: 12/22/22 Stop Date: 06/20/23 Status: Ordered Tylenol Extra Strength 500 mg oral tablet 1 tablet = 500 mg, By Mouth, 3 times a day, PRN Pain , Moderate, for 14 days, # 24 tablet, 5 Refills, Hard Stop 01/31/23 14:05:45 EDT, 10/19/22 20:00:00 EDT, Tablet, [facility] #[id number], 180, cm, 10/19/22 4:49:00 EDT, Height, 181, kg, 09/26/22 14:48:00... Start Date: 10/19/22 Stop Date: 01/31/23 Status: Ordered Tylenol Extra Strength 500 mg oral tablet 1 tablet = 500 mg, By Mouth, 3 times a day, PRN Pain , Moderate, # 100 tablet, 5 Refills, Maintenance, 01/31/23 14:05:00 EDT, Tablet, [facility] #[id number], 178, cm, 11/22/22 18:01:00 EDT, Height, [...] consistent with a cyst on CT at [facility] 04/2019 Confirmed 04/2019 Active Coronary [...] Confirmed Active Obstructive sleep apnea Confirmed Active .Scrap Iron Cutter: Lucita Segal [phone], [facility]. CPP Confirmed Active Post traumatic stress disorder (PTSD) Confirmed 1999 Active Pulmonary embolus most branches of R lung, Dx at [place], [place] on 11/28/22. L popliteal & peroneal DVT 11/18/22 Confirmed Active Severe obesity Confirmed Active 1-Seen in CT scan of the abdomen done at [facility] on 08-08-16 Social History Social History Type Response Smoking Status 10 or more cigarette s (1/2 pack or more)/day in last 30 days; Interested in cessation: No; Patient wants NRT during admission No entered on: 06/03/21 Sex Male Patient Care team information Care Team Personnel Name: Jim Munguia RN Position: [facility] RN Supv Member Role: Primary Care Nurse Name: Brenda Vanegas RN Position: S RN Member Role: Primary Care Nurse Name: Renae Rashid RN Position: S RN Member Role: Primary Care Nurse Name: Lizbeth Reardon RN Position: S RN Member Role: Primary Care Nurse Name: Brittny Griffin RN Position: S RN Member Role: Primary Care Nurse Name: Phill Michelle Position: S RN Supv Member Role: Primary Care Nurse Name: Rickey Cruz RN Position: S RN Member Role: Primary Care Nurse Name: Brandee Bee RN Position: S RN Member Role: Primary Care Nurse Name: Janie Gamez RN Position: S RN Member Role: Primary Care Nurse Name: Toby Trotter RN Position: S RN Supv Member Role: Primary Care Nurse Name: Jing Santiago RN Position: [facility] RN Member Role: Primary Care Nurse Name: Sven Bustos RN Position: [facility] RN Member Role: Primary Care Nurse Name: Sharron Schaefer RN Position: [facility] RN Member Role: Primary Care Nurse Name: Franca Luis LPN Position: [facility] RN Member Role: Primary Care Nurse Name: Sheryl Linda RN Position: [facility] RN Member Role: Primary Care Nurse Name: Zara Aldridge RN Position: [facility] RN Member Role: Primary Care Nurse Name: Preet Sofia MD Position: [facility] Physician - Primary Care Member Role: PCP Address: Address: [address] [place] [id number] Name: Betsey Harvey RN Position: [facility] RN Member Role: Primary Care Nurse Name: Camila Cervantes RN Position: [facility] RN Member Role: Primary Care Nurse Name: Aruna Warren RN Position: [facility] RN Member Role: Primary Care Nurse Name: Naomi Kyle RN Position: [facility] RN Member Role: Primary Care Nurse Name: Pavan Espinoza RN Position: [facility] RN Member Role: Primary Care Nurse Name: Lynne Shah RN Position: [facility] RN Member Role: Primary Care Nurse Name: Ashwini Larson RN Position: [facility] SN RN Member Role: Primary Care Nurse Name: Lorraine Good RN Position: [facility] RN Member Role: Primary Care Nurse Name: Mohan Quijano RN Position: [facility] RN Member Role: Primary Care Nurse Name: Shaina Nagy RN Position: [facility] RN Member Role: Primary Care Nurse Name: Sarah Gordon RN Position: [facility] Onco RN Member Role: Primary Care Nurse Name: Catalina Cook RN Position: [facility] RN Member Role: Primary Care Nurse Name: Sweta Lang RN Position: [facility] RN Member Role: Primary Care Nurse Name: Kely Morton RN Position: [facility] RN Member Role: Primary Care Nurse Care Team Related Persons Name: DIAN RODGERS Address: [place] [address] Name: KT LANDEROS Address: [place] [address] Name: GABRIELLAABBYTAE Address: [place] [id number]
--- OUTSIDE RECORDS SUMMARY | 2023-01-20 23:56 | XMS_ITS | Continuity of Care Document ---
Author Name Unknown Organization [facility] Address [address] [place] [address]- Care Team Providers Care Chip Person Name Role Phone Preet Sofia MD Primary Care Physician [phone] [place] [facility] [facility] [place] 03/11/21 [facility] [address] [place] [id number] Allergies, Adverse Reactions, Alerts Substance Reaction Severity [...] 03/28/20 Not Given Patient Refuses 1Location History: [facility] 2Location History: [facility] 3Location History: [facility] 4Location History: [facility] Medications aspirin 81 mg oral delayed release tablet 81 mg, By Mouth, Daily, # 30 tablet, Refills 2, Tot. Refills 2, Maintenance, 01/26/21 15:17:00 EDT,Route to Pharmacy Electronically, [facility], 180, cm, 01/26/21 13:09:00 EDT, Height, 182.4, kg, 01/15/21 23:48:00 EDT, Dry Weight Start Date: 01/26/21 Stop Date: 04/26/21 Status: Ordered atorvastatin 40 mg oral tablet 1 tablet = 40 mg, By Mouth, Daily at bedtime, # 30 tablet, 2 Refills, Maintenance, 01/26/21 15:17:00 EDT, Tablet, [facility], 180, cm, 01/26/21 13:09:00 EDT, Height, 182.4, kg, 01/15/21 23:48:00 EDT, Dry Weight Start Date: 01/26/21 Stop Date: 04/26/21 Status: Ordered carvedilol 3.125 mg oral tablet 3.125 mg, 1, tablet, By Mouth, 2 times a day, # 60 tablet, Refills 2, Tot. Refills 2, Maintenance, 01/26/21 15:17:00 EDT, Route to Pharmacy Electronically, [facility], Partial fill upon patient request if the prescription is for a schedule... Start Date: 01/26/21 Stop Date: 04/26/21 Status: Ordered clopidogrel 75 mg oral tablet 75 mg, 1, tablet, By Mouth, Daily, for 30 days, # 30 tablet, Refills 2, Tot. Refills 2, Hard Stop 04/26/21 15:17:00 EST, 01/26/21 15:17:00 EDT, Route to Pharmacy Electronically, [facility], home delivery please, 180, cm, 01/26/21 13:09:00... Start Date: 01/26/21 Stop Date: 04/26/21 Status: Ordered Entresto 24 mg-26 mg oral tablet 1 tablet, By Mouth, 2 times a day, # 60 tablet, 2 Refills, Maintenance, 01/26/21 15:17:00 EDT, Tablet, [facility], Partial fill upon patient request if the prescription is for a schedule II opioid drug., 1 tablet By Mouth 2 times a day,x30... Start Date: 01/26/21 Stop Date: 04/26/21 Status: Ordered FLUoxetine 40 mg oral capsule [...] mcg, By Mouth, Daily, # 30 tablet, 2 Refills, Maintenance, 01/26/21 15:17:00 EDT, Tablet, [facility], home delivery, 180, cm, 01/26/21 13:09:00 EDT, Height, 182.4, kg, 01/15/21 23:48:00 EDT, Dry Weight Start Date: 01/26/21 Stop Date: 04/26/21 Status: Ordered pantoprazole 20 mg oral delayed release tablet = 20 mg, By Mouth, Daily, # 30 tablet, 2 Refills, Maintenance, 01/26/21 15:17:00 EDT, EC Tablet, 180, cm, 01/26/21 13:09:00 EDT, Height, 182.4, kg, 01/15/21 23:48:00 EDT, Dry Weight Start Date: 01/26/21 Stop Date: 04/26/21 Status: Ordered Secura Antifungal Extra Thick 2% [...] By Mouth, Daily, # 30 tablet, Refills 2, Tot. Refills 2, Maintenance, 01/26/21 15:17:00 EDT, Route to Pharmacy Electronically, [facility], home delivery, 180, cm, 01/26/21 13:09:00 EDT, Height, 182.4, kg, 01/15/21 23:48:0... Start Date: 01/26/21 Stop Date: 04/26/21 Status: Ordered torsemide 20 mg oral tablet 1 tablet = 20 mg, By Mouth, Daily, # 30 tablet, 2 Refills, Maintenance, 01/26/21 15:17:00 EDT, Tablet, [facility], Partial fill upon patient request if the prescription is for a schedule II opioid drug., 180, cm, 01/26/21 13:09:00 EDT, Hei... Start Date: 01/26/21 Stop Date: 04/26/21 Status: Ordered Problem List Condition Effective Dates [...] consistent with a cyst on CT at [facility] 04/2019(Confirmed) 04/2019 Active Coronary artery [...] Morbid obesity(Confirmed) Active Obstructive sleep apnea(Confirmed) Active .Oral And Maxillofacial Surgeon: Zoltan Diaz [phone], [facility] BHCPP(Confirmed) Active Post traumatic stress disord er (PTSD)(Confirmed) 1999 Active 1-Seen in CT scan of the abdomen done at [facility] on 08-08-16 Social History Social History Type Response Smoking Status 10 or more cigarette s (1/2 pack or more)/day in last 30 days; Other: [id number]; entered on: 09/03/20 Sex
--- OUTSIDE RECORDS SUMMARY | 2023-01-20 23:56 | XMS_ITS | Continuity of Care Document ---
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 that you have to feel bad all the time. Think about talking to your healthcare provider or a therapist if: ??? You feel worthless or helpless, or are thinking about suicide. These are warning signs of depression. Treatment can help you feel better. When depression is under control, your overall health may also improve. ??? You feel anxious about what will happen to your loved ones if your health gets worse. Taking care of legal arrangements, such as a living will and durable power of tax associate attorney, can help you feel more secure about the future. ??? You feel stressed or alone. Social support helps reduce stress and helps you stick with your healthy lifestyle ch anges. Without social support, you may end up back in the hospital. ?? Last Reviewed Date: 2021 ?? The [employer]. All rights reserved. This information is not intended as a substitute for professional medical care. Always follow your healthcare professional's instructions. ?? * Adriana SANDERSON, Flash: PERFORM Event Display: Patient Education Leaflets Authored Date: [id number] Heart Failure: Dealing with Sleep Problems ?? 71577 Heart Failure: Dealing with Sleep Problems If you have heart failure and you???re not sleeping well, there are many possible reasons. Many people with heart failure also have sleep apnea. This is a condition that causes snoring and brief periods of not breathing. Age, certain medicines, and not getting enough exercise can also affect sleep.Be sure to tell your healthcare provider if you???re having sleep problems. Tips for sleeping better If shortness of breath keeps you awake, your healthcare team needs to know. Tell them if you can???t lie flat or need to sleep propped up on pillows. Or tell them if you can only sleep sitting up in a chair or recliner. If nighttime shortness of breath gets worse, tell your healthcare provider. Youmay have a buildup of fluid and need more diuretic medicine. If you have other sleep problems not related to shortness of breath, these tips may help: ??? Do deep breathing in bed. This will relax you and help you fall asleep. ??? Don???t drink caffeine any later than noon. ??? Try to go to sleep and wake up around the same time every day. This helps your body set a sleep cycle. ??? Don't nap. This can affect your sleep cycle. ??? Pull window shades down. If the room isn???t dark enough, get blackout shades. ??? Keep pets out of the bedroom if they bother you at night. ??? Wear comfortable, loose pajamas. Pajamas that fit tightly may make you feel like it's harder to breathe. ??? If you take medicines at bedtime, talk with your healthcare provider about changing this. Certain medicines may be keeping you awake. Or they may cause you to wake up often to use the bathroom. Beta-blockers and diuretics are common medicines taken for heart failure that can affect your sleep. ??? Talk with your healthcare provider about taking [id number]-itpuclt sleep aids. Some OTC medicines can interact with your prescribed medicines. Or they may have salts in them that cause you to retain fluids. ?? Do you have sleep apnea? You may not know??you have sleep apnea unless someone notices that you have irregular breathing, gasping, or snoring while you sleep. You should get checked for this condition. If you have it, treatment can improve your health. Treatment can also ease the stress on your heart and body. Your healthcare provider may prescribe a CPAP???(continuous positive airway pressure) or BiPap???(bilevel positive airway pressure) device. The machine sends a gentle flow of air through a nasal maskwhile you sleep. This air goes through your nose and into your lungs, keeping airways open. An airflow device may be needed if you have sleep apnea. ?? Tips for using CPAP and BiPap ??? If your mask doesn???t fit or feel right, talk with your healthcare provider or the vendor about adjusting it or trying a new one. There are many different styles and types that may fit your face better than others. ??? If you have allergies or other problems that block your nose, get those treated. These devices work best if your nose is clear. ??? If the devicedoesn???t feel good or work well at first, don???t stop using it. Ask your provider or someone from[employer] equipment [employer] for ways to help make it work for you. ??? Newer devices are small, lightweight, quiet, and portable. Take your machine with you when you travel or are not sleeping at home. Some devices have chargeable batteries. They can be taken camping or when sleeping outdoors. ??? Don't use tap water to fill the water chamber for humidity. Deposits in tap water can build up and affect the machine and your breathing. The product makers usually recommend that you use sterile water or distilled water. ??? Ask your healthcare provider if you need oxygen along with your CPAP orBiPAP machine. Some people with heart failure need both. ??? The equipment wears out with time. Make sure your equipment is tested. Get new equipment as often as your healthcare provider recommends. ?? Last Reviewed Date: 2021 ?? 6206-0528 The [employer]. All rights reserved. This information is not intended as a substitute for professional medical care. Always follow your healthcare professional's instructions. ?? * Flash Wright RN: PERFORM Event Display: Patient Education Leaflets Authored Date: [id number] Understanding Coronary Artery Disease (CAD) ?? 63029 Understanding Coronary Artery Disease (CAD) Your heart is a muscle. To work right, this muscle needs a steady supply of oxygen. The coronary arteries are blood vessels that send oxygen-rich blood to the heart muscle. Coronary artery disease (CAD) is when there???s a problem in these blood vessels. Healthy artery. A healthy coronary artery has no blockages. Blood easily flows through it. Healthy arteries can supply all the oxygen-rich blood your heart muscle needs. Healthy artery. Damaged artery. Some things can damage the lining of an artery. These include smoking, high blood pressure, and high blood sugar. CAD starts when this damage leads to the buildup of plaque along the artery wall. Plaque is a substance made of cholesterol and other fatty deposits. Plaque narrows the arteries that send blood to your heart muscle. This is called atherosclerosis. Damaged artery. Narrowed artery. As more plaque builds up, an artery has trouble sending blood to your heart musclewhen it's needed the most, such as during exercise. You may not feel any symptoms when this happens. Or you may feel pressure, tightness, aching, or pain in your chest, jaw, neck, back, or arm. This is called angina. Narrowed artery. Blocked artery. A piece of plaque can break off. This is called ruptured plaque. It can fully blockthe artery. But more often, a blood clot forms on a piece of ruptured plaque. Together these block the narrowed artery. Then blood can't reach the heart muscle. Right away, part of the heart muscle becomes damaged and stops working. You may feel crushing pressure or pain in or around your chest. This is a heart attack (acute myocardial infarction). It???s a medical emergency. Blocked artery. Last Reviewed Date: 2021 ?? 7452-6101 The [employer]. All rights reserved. This information is not intended as a substitute for professional medical care. Always follow your healthcare professional's instructions. ?? Patient Care team information Care Team Personnel [...] Care Nurse Name: Jing Santiago RN Position: S RN Member Role: Primary Care Nurse Name: Sven Bustos RN Position: S RN Member Role: Primary Care Nurse Name: Sharron Schaefer RN Position: S RN Member Role: Primary Care Nurse Name: Franca Luis LPN Position: S RN Member Role: Primary Care Nurse Name: Sheryl Linda RN Position: S RN Member Role: Primary Care Nurse Name: Zara Aldridge RN Position: [facility] RN Member Role: Primary Care Nurse Name: Preet Sofia MD Position: [facility] Physician - Primary Care Member Role: PCP Address: Address: [address] [place] [address]- Name: Abel Nanci Position: [facility] RN Member Role: Primary Care Nurse Name: Betsey Harvey RN Position: [facility] RN Member Role: Primary Care Nurse Name: Camila Cervantes RN Position: [facility] RN Member Role: Primary Care Nurse Name: Aleyda Hernandez RN Position: [facility] RN Member Role: Primary Care Nurse Name: Aruna Warren RN Position: [facility] RN Member Role: Primary Care Nurse Name: Naomi Kyle RN Position: [facility] RN Member Role: Primary Care Nurse Name: Pavan Espinoza RN Position: [facility] RN Member Role: Primary Care Nurse Name: Lynne Shah RN Position: [facility] RN Member Role: Primary Care Nurse Name: Naomi Mcadams RN Position: [facility] RN Member Role: Primary Care Nurse Name: Ashwini Larson RN Position: [facility] SN RN Member Role: Primary Care Nurse Name: Lorraine Good RN Position: [facility] RN Member Role: Primary Care Nurse Name: Mohan Quijano RN Position: [facility] RN Member Role: Primary Care Nurse Name: Shaina Nagy RN Position: [facility] RN Member Role: Primary Care Nurse Name: Sarah Gordon RN Position: [facility] Onco RN Member Role: Primary Care Nurse Name: Catalina Cook RN Position: [facility] RN Member Role: Primary Care Nurse Name: Yun Wadsworth RN Position: [facility] RN Member Role: Primary Care Nurse Name: Sweta Lang RN Position: [facility] RN Member Role: Primary Care Nurse Name: Kely Morton RN Position: [facility] RN Member Role: Primary Care Nurse Name: Arvind Castañeda Position: [facility] ED [facility] Name: Jared Anderson Position: [facility] Associate Professional Member Role: ED Physician Furniture Mechanic Address: Address: [address] [place] [address] [place] [address]- [place] Name: Brigida Sanchez Position: [facility] ED [facility] Name: Janae Santiago DO Position: [facility] ED Medicine MD Member Role: ED Attending Physician Address: Address: [address] [place] [address] [place] [address]- [place] Name: Lila Boyce RN Position: [facility] ED RN W/OE and Tasks Member Role: Patient Care Provider Care Team Related Persons Name: DIAN RODGERS Address: [place] [address] Name: KT LANDEROS Address: [place] [address] Name: TAE QUIROZ Address: home [place] [facility]
--- OUTSIDE RECORDS SUMMARY | 2023-01-20 23:56 | XMS_ITS | Continuity of Care Document ---
Author Name Unknown Organization [facility] Address [address] [place] [address]- Care Team Providers Care Take Out Waitress Name Role Phone Preet Sofia MD Primary Care Physician [phone] Encounter [facility] Date(s): 09/29/22 - 10/29/22 [facility] [address] [address]- [place] Allergies, Adverse Reactions, Alerts No Known [...] Given Patient Refuses 1Location History: [facility] 2Location History: [facility] 3Location History: [facility] 4Location History: [facility] Medications aspirin 81 mg oral delayed release [...] 3 Refills, Maintenance, 10/19/22 20:02:00 EDT, Tablet, [facility]/pharmacy #[id number], 180, cm, 10/19/22 4:49:00 EDT, [...] 10/19/22 20:05:00 EDT, Route to Pharmacy Electronically, [facility]/pharmacy #[id number], 180, cm, 10/19/22 4:49:00 EDT, Height, 181, kg, 09/26/22 14:48:00 EDT, Dry W... Start Date: 10/19/22 Status: Ordered Dilaudid 2 mg oral tablet See Instructions, PRN Pain , Severe, 1 tablet By Mouth every 4 hours up to 3x/day during daytime asneeded for severe pain. 7 day supply., # 21 tablet, 0 Refills, Maintenance, 10/28/22 22:27:00 EDT, Tablet, [facility]/pharmacy #[id number], Partial fill upon patien... Start Date: 10/28/22 Status: Ordered duloxetine 30 mg oral enteric coated capsule 1 capsule = 30 mg, By Mouth, Daily at bedtime, # 30 capsule, 1 Refills, Maintenance, 10/12/22 12:25:00 EDT, Capsule, [facility], Partial fill upon patient [...] 3 Refills, Maintenance, 10/19/22 20:06:00 EDT, Tablet, [facility]/pharmacy #[id number], 180, cm, 10/19/22 4:49:00 EDT, [...] 0 Refills, Maintenance, 06/09/21 12:34:00 EST, Tablet, [facility], Partial fill upon patient [...] 10/19/22 20:09:00 EDT, Route to Pharmacy Electronically, [facility]/pharmacy #[id number], 180, cm, 10/19/22 4:49:00 EDT, [...] 5 Refills, Maintenance, 10/19/22 20:12:00 EDT, Tablet, [facility]/pharmacy #[id number], 180, cm, 10/19/22 4:49:00 EDT, [...] consistent with a cyst on CT at [facility] 04/2019 Confirmed 04/2019 Active Coronary artery [...] Confirmed Active Obstructive sleep apnea Confirmed Active .Oyster Culturist: Lucita Segal [phone], [facility]. CPP Confirmed Active Post traumatic [...] Care Nurse Name: Rickey Cruz RN Position: [facility] RN Member Role: Primary Care Nurse Name: Brandee Bee RN Position: [facility] RN Member Role: Primary Care Nurse Name: Janie Gamez RN Position: [facility] RN Member Role: Primary Care Nurse Name: Jing Santiago RN Position: [facility] RN Member Role: Primary Care Nurse Name: Sven Bustos RN Position: [facility] RN Member Role: Primary Care Nurse Name: Sharron Schaefer RN Position: [facility] RN Member Role: Primary Care Nurse Name: Franca Luis LPN Position: [facility] RN Member Role: Primary Care Nurse Name: Sheryl Linda RN Position: [facility] RN Member Role: Primary Care Nurse Name: Zara Aldridge RN Position: [facility] RN Member Role: Primary Care Nurse Name: Preet Sofia MD Position: [facility] Physician - Primary Care Member Role: PCP Address: Address: [address] [place] [address] Name: Betsey Harvey RN Position: [facility] RN Member Role: Primary Care Nurse Name: Camila Cervantes RN Position: [facility] RN Member Role: Primary Care Nurse Name: Aruna Warren RN Position: [facility] RN Member Role: Primary Care Nurse Name: Naomi Kyle RN Position: [facility] RN Member Role: Primary Care Nurse Name: Pavan Espinoza RN Position: [facility] RN Member Role: Primary Care Nurse Name: Lynne Shah RN Position: [facility] RN Member Role: Primary Care Nurse Name: Naomi Mcadams RN Position: [facility] RN Member Role: Primary Care Nurse Name: Ashwini Larson RN Position: [facility] SN RN Member Role: Primary Care Nurse Name: Darren Ortega RN Position: [facility] RN Member Role: Primary Care Nurse Name: Lorraine Good RN Position: [facility] RN Member Role: Primary Care Nurse Name: Mohan Quijano RN Position: [facility] RN Member Role: Primary Care Nurse Name: Shaina Nagy RN Position: [facility] RN Member Role: Primary Care Nurse Name: Sarah Gordon RN Position: [facility] Onco RN Member Role: Primary Care Nurse Name: Catalina Cook RN Position: [facility] RN Member Role: Primary Care Nurse Name: Sweta Lang RN Position: [facility] RN Member Role: Primary Care Nurse Name: Selene SANDERSON, Kely Eng Position: S RN Member Role: Primary Care Nurse Care Team Related Persons Name: DIAN RODGERS Address: [place] [address] Name: KT LANDEROS Address: [place] [address] Name: TAE QUIROZ Address: [place] [id number]
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
--- OUTSIDE RECORDS SUMMARY | 2023-01-20 23:56 | XMS_ITS | Continuity of Care Document ---
Author Name Unknown Organization [facility] Address [address] [place] [address]- Care Team Providers Care Security Assistant Name Role Phone Preet Sofia MD Primary Care Physician [facility]counter [facility] Date(s): 11/30/22 - 12/30/22 [facility] [address]- [place] Allergies, Adverse Reactions, Alerts No Known [...] hccc 3Location History: hccc 4Location History: [facility] Medications aspirin 81 mg oral delayed release [...] EDT, Supply Start Date: 10/14/22 Status: Ordered calcium carbonate 1000 mg oral [...] 12/22/22 14:14:00 EDT, Route to Pharmacy Electronically, [facility]/pharmacy #[id number], 178, cm, 11/22/22 18:01:00 EDT, Height, 164.9, kg, 11/18/22 18:49:00 EDT, Start Date: 12/22/22 Status: Ordered duloxetine 30 mg oral enteric coated capsule 1 capsule = 30 mg, By Mouth, Daily at bedtime, # 30 capsule, 5 Refills, Maintenance, 01/21/23 14:06:00 EDT, Capsule, [facility]/pharmacy #[id number], Partial fill upon patient request [...] Refills, Maintenance, 10/19/22 20:08:00 EDT, REC Powder, [facility]/pharmacy #[id number], 17 Gm By Mouth Daily,PRN:Constipation,Instr:dissolve in water before taking, 180, cm,... Start Date: 10/19/22 Status: Ordered Miscellaneous Rx 0 Refills, Maintenance, THC, 12/21/22 17:28:00 EDT Start Date: 12/21/22 Status: Ordered nitroglycerin 0.4 mg sublingual tablet 1 tablet = 0.4 mg, Sublingual, Every 5 minutes, PRN Chest Pain, # 100 tablet, 0 Refills, Maintenance, 06/09/21 12:34:00 EST, Tablet, [facility], Partial fill upon [...] EDT, Supply Start Date: 11/22/22 Status: Ordered Symbicort 80mcg/4.5mcg Inhaler 2, puffs, Inhalation, 2 times a day, in the morning and the evening use with spacer chamber rinse mouth and throat after use, # 1 each, Refills 3, Tot. Refills 3, Maintenance, 11/22/22 14:06:00 EDT, Aerosol, Route to Pharmacy Electronically, [id number]... Start Date: 11/22/22 Status: Ordered torsemide 20 mg oral tablet 1 tablet = 20 mg, By Mouth, 2 times a day, # 60 tablet, 5 Refills, Maintenance, 12/22/22 14:08:00 EDT, Tablet, [id number], 178, cm, 11/22/22 18:01:00 EDT, Height, 164.9, kg, 11/18/22 18:49:00EDT, Dry Weight Start Date: 12/22/22 Stop Date: 06/20/23 Status: Ordered Wheelchair See Instructions, # 1 Unknown, Maintenance, standard wheel chair needed for chronic foot wound and gait instability as deemed by physical therapy, 12/27/22 15:39:00 EDT, Supply Start Date: 12/27/22 Status: Ordered Problem List Condition Confirmation Course [...] consistent with a cyst on CT at [facility] 04/2019 Confirmed 04/2019 Active Coronary artery [...] Confirmed Active Obstructive sleep apnea Confirmed Active .Information Security: Luctia Segal [phone], [facility]. CPP Confirmed Active Post traumatic stress disorder (PTSD) Confirmed 1999 Active Pulmonary embolus most branches of R lung, Dx at [place], [place] on 11/28/22. L popliteal & peroneal DVT 11/18/22 Confirmed Active Severe obesity Confirmed Active 1-Seen in CT scan of the abdomen done at [facility] on 08-08-16 Social History Social History Type Response Smoking Status 10 or more cigarette s (1/2 pack or more)/day in last 30 days; Interested in cessation: No; Patient wants NRT during admission No entered on: 06/03/21 Sex Patient Care team information Care Team Personnel Name: AlBrenda lockett RN Position: [facility] RN Member Role: Primary Care Nurse Name: Renae Rashid RN Position: [facility] RN Member Role: Primary Care Nurse Name: Lizbeth Reardon RN Position: [facility] RN Member Role: Primary Care Nurse Name: Brittny Griffin RN Position: [facility] RN Member Role: Primary Care Nurse Name: Phill Michelle Position: [facility] RN Supv Member Role: Primary Care Nurse Name: Rickey Cruz RN Position: [facility] RN Member Role: Primary Care Nurse Name: Brandee Bee RN Position: [facility] RN Member Role: Primary Care Nurse Name: Janie Gamez RN Position: [facility] RN Member Role: Primary Care Nurse Name: Toby Trotter RN Position: [facility] RN Supv Member Role: Primary Care Nurse Name: Jing Santiago RN Position: [facility] RN Member Role: Primary Care Nurse Name: Sven Bustos RN Position: [facility] RN Member Role: Primary Care Nurse Name: Sharron Schaefer RN Position: [facility] RN Member Role: Primary Care Nurse Name: Franca Luis LPN Position: [facility] RN Member Role: Primary Care Nurse Name: Sheryl Linda RN Position: [facility] RN Member Role: Primary Care Nurse Name: Zara Aldridge RN Position: [facility] RN Member Role: Primary Care Nurse Name: Preet Sofia MD Position: [facility] Physician - Primary Care Member Role: PCP Address: Address: [address] [place] [address] Name: Nanci Roman Position: [facility] RN Member Role: Primary Care Nurse Name: Betsey Harvey RN Position: [facility] RN Member Role: Primary Care Nurse Name: Camila Cervantes RN Position: [facility] RN Member Role: Primary Care Nurse Name: Aruna Warren RN Position: [facility] RN Member Role: Primary Care Nurse Name: Naomi Kyle RN Position: [facility] RN Member Role: Primary Care Nurse Name: Pavan Espinoza RN Position: [facility] RN Member Role: Primary Care Nurse Name: Lynne Shah RN Position: [facility] RN Member Role: Primary Care Nurse Name: Ashwini Larson RN Position: [facility] SN RN Member Role: Primary Care Nurse Name: Lorraine Good RN Position: [facility] RN Member Role: Primary Care Nurse Name: Mohan Quijano RN Position: S RN Member Role: Primary Care Nurse Name: Shaina Nagy RN Position: S RN Member Role: Primary Care Nurse Name: Sarah Gordon RN Position: [facility] Onco RN Member Role: Primary Care Nurse Name: Catalina Cook RN Position: [facility] RN Member Role: Primary Care Nurse Name: Yun Wadsworth RN Position: [facility] RN Member Role: Primary Care Nurse Name: Sweta Lang RN Position: [facility] RN Member Role: Primary Care Nurse Name: Kely Morton RN Position: [facility] RN Member Role: Primary Care Nurse Care Team Related Persons Name: DIAN RODGERS Address: [place] [address] Name: KT LANDEROS Address: [place] [address] Name: TAE QUIROZ Address: home [facility] [address]
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
--- OUTSIDE RECORDS SUMMARY | 2023-01-20 23:56 | XMS_ITS | Continuity of Care Document ---
Author Name Unknown Organization [facility] Address [address] [place] [address]- Care Team Providers Care Dermatopathologist Name Role Phone Preet Sofia MD Primary Care Physician Encounter [facility] Date(s): 08/03/21 - 09/11/21 [facility] [address] [place] [address]- Attending Physician: Not on Staff, Attending MD Allergies, Adverse Reactions, Alerts No Known Allergies Immunizations Given and Recorded Vaccine Date Status Refusal Reason SARS-CoV-2 (COVID-19) mRNA-5042 vaccine 05/11/21 G iven influenza virus vaccine, [...] 03/28/20 Not Given Patient Refuses 1Location History: [facility] 2Location History: [facility] 3Location History: [facility] 4Location History: [facility] Medications aspirin 81 mg oral [...] 0 Refills, Maintenance, 06/09/21 12:34:00 EST, Tablet, [facility], Partial fill upon [...] 0 Refills, Maintenance, 06/09/21 12:34:00 EST, Cream, [facility], Partial fill upon [...] 11:03:00 EDT, Aerosol, Route to Pharmacy Electronically, [id number]... Start Date: 07/29/21 Status: Ordered torsemide 20 [...] consistent with a cyst on CT at [facility] 04/2019(Confirmed) 04/2019 Active Coronary artery [...] class I(Confirmed) Active Obstructive sleep apnea(Confirmed) Active .Act English Tutor: Zoltan Diaz [phone], [facility]. CPP(Confirmed) Active Post traumatic stress disord [...]
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
--- OUTSIDE RECORDS SUMMARY | 2023-01-20 23:56 | XMS_ITS | Continuity of Care Document ---
Author Name Unknown Organization [facility] Address Unknown Care Team Providers Care Paste Up Worker Name Role Phone Preet Sofia MD Primary Care Physician [id number] Date(s): 04/29/21 - 06/05/21 [facility] Attending Physician: Preet Sofia MD Admitting Physician: Preet Sofia MD Allergies, Adverse Reactions, Alerts No Known Allergies Immunizations Given and Recorded Vaccine Date Status Refusal Reason SARS-CoV-2 (COVID-19) [id number] vaccine 05/11/21 G iven influenza virus vaccine, [...] 03/28/20 Not Given Patient Refuses 1Location History: [facility] 2Location History: [facility] 3Location History: [facility] 4Location History: [facility] Medications aspirin 81 mg oral [...] 75 mg, 1, tablet, By Mouth, Daily, Maintenance, 06/05/21 16:52:00 EST, Partial fill upon patient request if the prescription is for a schedule II opioid drug. Start Date: 06/05/21 Status: Ordered Entresto 24 mg-26 mg oral [...] Date: 04/26/21 Stop Date: 10/23/21 Status: Ordered nitroglycerin 0.4 mg sublingual tablet 1 tablet = 0.4 mg, Sublingual, Every 5 minutes, PRN Chest Pain, # 100 tablet, 0 Refills, Maintenance, 04/23/21 15:45:00 EST, Tablet, [facility], Partial fill upon patient [...] tablet = 20 mg, By Mouth, Daily, Maintenance, 06/05/21 16:51:00 EST, Tablet, Partial fill upon patient request if the prescription is for a schedule II opioid drug. Start Date: 06/05/21 Status: Ordered traZODone 50 mg oral tablet [...] consistent with a cyst on CT at [facility] 04/2019(Confirmed) 04/2019 Active Coronary artery disease, [...] Morbid obesity(Confirmed) Active Obstructive sleep apnea(Confirmed) Active .[employer] Medical Sergeant: Zoltan Diaz [phone], [facility]. CPP(Confirmed) Active Post traumatic stress disord er (PTSD)(Confirmed) 1999 Active Severe obesity(Confirmed) Active 1-Seen in CT scan of the abdomen done at [facility] on 08-08-16 Social History Social History Type Response Smoking Status 10 or more cigarette s (1/2 pack or more)/day in last 30 days; Interested in cessation: No; Patient wants NRT during admission No entered on: 06/03/21 Sex
--- OUTSIDE RECORDS SUMMARY | 2023-01-20 23:56 | XMS_ITS | Continuity of Care Document ---
Author Name Unknown Organization [facility] ter Address [address] [place] [id number]- Care Team Providers Care Infrastructure Solutions Architect Name Role Phone Preet Sofia MD Primary Care Physician Encounter [facility] Date(s): 08/28/20 - 08/31/[address] [address]- Discharge Disposition: A-D/C Home Attending Physician: Pradeep Isaacs MD Admitting Physician: Flex Cobos MD Referring Physician: [...] 03/28/20 Not Given Patient Refuses [facility] 2Location History: [facility] 3Location History: [facility] 4Location History: [facility] Medications aspirin 81 mg oral delayed release tablet 81 mg, By Mouth, Daily, Refills 0, Maintenance, 08/31/20 14:01:00 EDT, Partial fill upon patient request if the prescription is for a schedule II opioid drug. Start Date: 08/31/20 Status: Ordered atorvastatin 40 mg oral tablet 1 tablet = 40 mg, By Mouth, Daily at bedtime, 0 Refills, Maintenance, 08/31/20 14:01:00 EDT, Tablet, Partial fill upon patient request if the prescription is for a schedule II opioid drug. Start Date: 08/31/20 Status: Ordered clopidogrel 75 mg oral tablet 75 mg, 1, tablet, By Mouth, Daily, # 90 tablet, Refills 3, Tot. Refills 3, Hard Stop 01/17/22 16:10:00 EDT, 01/22/21 16:10:00 EDT, Route to Pharmacy Electronically, [id number], home delivery please, 180, cm, 04/08/20 13:32:00 EST, Height, 181.... Start Date: 01/22/21 Stop Date: 01/17/22 Status: Ordered FLUoxetine 20 mg oral capsule 20 mg, 1, capsule, By Mouth, Daily, # 90 capsule, Refills 4, Tot. Refills 4, Maintenance, 06/26/20 17:25:00 EST, Route to Pharmacy Electronically, [facility], home delivery, 180, cm, 06/26/20 14:13:00 EST, Height, 181.6, kg, ... Start Date: 06/26/20 Status: Ordered furosemide 20 mg oral tablet 20 mg, 1, tablet, By Mouth, Daily in AM, # 90 tablet, Refills 3, Tot. Refills 3, Hard Stop 09/25/2115:36:00 EDT, 05/27/20 16:36:00 EST, [id number], 180, cm, 04/08/20 13:32:00 EST, Height... Start Date: 05/27/20 Stop Date: 09/24/20 Status: Ordered levothyroxine 0.05 mg oral tablet 1 tablet = 50 mcg, By Mouth, Daily, # 90 tablet, 4 Refills, Maintenance, 06/26/20 17:25:00 EST, Tablet, [facility], home delivery, 180, cm, 06/26/20 14:13:00 EST, Height, 181.6, kg, 03/27/20 14:58:00 EST, Dry Weight Start Date: 06/26/20 Status: Ordered lisinopril 5 mg oral tablet 2.5 mg, Tablet, By Mouth, 08/31/20 9:00:00 EDT Start Date: 08/31/20 Stop Date: 08/31/20 Status: Completed metoprolol 25 mg oral tablet, extended release 25 mg, 1, tablet, By Mouth, Daily, # 90 tablet, Refills 4, Tot. Refills 4, Maintenance, 06/26/20 17:25:00 EST, Route to Pharmacy Electronically, [facility], home delivery, 180, cm, 06/26/20 14:13:00 EST, Height, 181.6, kg, 03/27/20... Start Date: 06/26/20 Status: Ordered metoprolol 25 mg oral tablet, extended release 25 mg, XL Tablet, By Mouth, 08/31/20 9:00:00 EDT Start Date: 08/31/20 Stop Date: 08/31/20 Status: Completed Nitroglycerin 0.4mg Sublingual Tablet 0.4 mg, Tablet, Sublingual, Every 5 minutes for 3 doses/times, PRN for Chest Pain, Keep SBP greaterthan 100 mm Hg, If patient has ST elevation, administer only one tablet., Routine, 08/27/20 23:47:00 EDT, Stop date Limited # of times Start Date: 08/27/20 Stop Date: 08/30/20 Status: Completed nortriptyline 10 mg oral capsule 10 mg, 1, capsule, By Mouth, Daily, # 90 capsule, Refills 3, Tot. Refills 3, Maintenance, 06/26/20 17:28:00 EST, Route to Pharmacy Electronically, [facility], 180, cm, 06/26/20 14:13:00 EST, Height, 181.6, kg, 03/27/20 14:58:00 EST... Start Date: 06/26/20 Status: Ordered pantoprazole 20 mg oral delayed [...] 06/26/20 17:25:00 EST, Route to Pharmacy Electronically, [facility] [place], 180, cm, 06/26/20 14:13:00 EST, Height, [...] consistent with a cyst on CT at [facility] 04/2019(Confirmed) 04/2019 Active Coronary artery [...] CT scan of the abdomen done at [facility] on 08-08-16 Results Radiology Reports * Exam Date Time Procedure Performing Provider Status 08/28/20 12:07 AM Chest Portable Isabelle Kinsey; Aut h (Verified) Notes: (Chest Portable) Reason For Exam: Chest Pain;Other: RESULT: Chest Portable Chest Portable Hx of Present Illness: pt reports cp and sob that started yesterday; pt reports recent AL approx 2 months ago; pt reports nonradiating midsternal chest pain; Reason: Other:; Chest Pain; Clinical Question(s): CHF COMPARISON: 03/26/2020 FINDINGS: No acute cardiopulmonary process IMPRESSION: No acute abnormality. WSN: [id number] Ordering Physician: Katie Levine Dictated By: Toby Webster MD Dictated Date/Time: 08/28/20 8:05 am Reviewed By: Toby Webster MD Signed By: Toby Webster MD Signed Date/Time: 08/28/20 8:05 am Transcribed By: SHANNA Transcribed Date/Time: 08/28/20 8:04 am Vital Signs Most recent to oldest [Reference Range]: 1 2 3 Weight 181 kg (08/29/20 6:16 PM) Oxygen Saturation [94-100 %] 98 % (08/31/20 6:00 AM) 95 % (08/31/20 2:00 AM) 97 % (08/30/20 10:00 PM) Pulse Rate [55-90 bpm] 76 bpm (08/31/20 8:30 AM) 66 bpm (08/31/20 6:00 AM) 65 bpm (08/31/20 2:00 AM) Blood Pressure [90-138/55-84 mm Hg] 127/81mm Hg (08/31/20 8:30 AM) 127/81mm Hg (08/31/20 8:30 AM) 122/78mm Hg (08/31/20 6:00 AM) Respiratory Rate [16-30 br/min] 19 br/min (08/31/20 6:00 AM) 21 br/min (08/31/20 2:00 AM) 20 br/min (08/31/20 12:03 AM) Temperature [96.8-100.4 DegF] 97.1 DegF (08/31/20 6:00 AM) 97.4 DegF (08/31/20 2:00 AM) 97.5 DegF (08/30/20 10:00 PM) Liters per Minute 2 L/min (08/31/20 6:00 AM) 2 L/min (08/31/20 2:00 AM) 2 L/min (08/30/20 10:00 PM) Mode of Delivery (Oxygen) Nasal cannula (08/31/20 6:00 AM) Nasal cannula (08/31/20 2:00 AM) Nasal cannula (08/30/20 10:00 PM) Blood pressure sites Arm, right (08/31/20 6:00 AM) Arm, right (08/31/20 2:00 AM) Arm, right (08/30/20 10:00 PM) Temperature Route Oral (08/31/20 6:00 AM) Oral (08/31/20 2:00 AM) Oral (08/30/20 10:00 PM) Dry Weight 172.7 kg (08/28/20 4:44 AM) 172.7 kg (08/28/20 2:18 AM) 172.7 kg (08/28/20 1:20 AM) Social History Social History Type Response Smoking Status 10 or more cigarette s (1/2 pack or more)/day in last 30 days entered on: 05/14/20 Sex
--- OUTSIDE RECORDS SUMMARY | 2023-01-20 23:57 | XMS_ITS | Continuity of Care Document ---
Author Name Unknown Organization [facility] ter Address [address] [place] [id number]- Care Team Providers Care Rail Signal Designer Name Role Phone Preet Sofia MD Primary Care Physician Encounter [facility] Date(s): 11/01/21 - 11/03/[address] [address]- Encounter Diagnosis CHF exacerbation(Final) - 11/01/21 Chronic kidney disease (CKD) stage G2/A2, mildly decreased glomerular filtration rate (GFR) [id number] mL/min/1.73 square meter and albuminuria creatinine ratio between 30-299 mg/g(Final) - 11/01/21 Coronary artery disease, hx STEMI, DE stent to LAD(Final) - 11/01/21 Heart failure with reduced ejection fraction(Final) - 11/01/21 Discharge Disposition: A-D/C AMA Attending Physician: Aramis TORRES, Hai Martinez Admitting Physician: Ferny TORRES, Pradeep Hill Referring Physician: Not on Staff, Referring MD [...] Given Patient Refuses 1Location History: [facility] 2Location History: [facility] 3Location History: [facility] 4Location History: [facility] Medications aspirin 81 mg oral [...] oral tablet 6.25 mg, Tablet, By Mouth, 11/03/21 9:00:00 EDT Start Date: 11/03/21 Stop Date: 11/03/21 Status: Completed carvedilol 6.25 mg oral tablet [...] kg, 08/25... Start Date: 10/07/21 Status: Ordered Flexeril 10 mg oral tablet 10 mg, Tablet, By Mouth, 3 times a day, PRN for Spasm, Routine, 11/02/21 10:52:00 EDT Start Date: 11/02/21 Stop Date: 11/03/21 Status: Discontinued FLUoxetine 40 mg oral capsule 1 capsule [...] 0 Refills, Maintenance, 06/09/21 12:34:00 EST, Tablet, [facility], Partial fill upon patient request if theprescription is for a schedule II opioid drug., 180... Start Date: 06/09/21 Status: Ordered oxyCODONE 5 mg oral tablet 10 mg, Tablet, By Mouth, Every 4 hours, PRN for Pain , Severe, Routine, 11/02/21 10:51:00 EDT Start Date: 11/02/21 Stop Date: 11/03/21 Status: Discontinued pantoprazole 20 mg oral delayed release tablet [...] 0 Refills, Maintenance, 06/09/21 12:34:00 EST, Cream, [facility], Partial fill upon patient request if [...] 11:03:00 EDT, Aerosol, Route to Pharmacy Electronically, [id number]... Start Date: 07/29/21 Status: Ordered torsemide 20 [...] 15:52:00... Start Date: 07/02/21 Status: Ordered Tylenol 325 mg oral tablet 975 mg, Tablet, By Mouth, 3 times a day, PRN for Pain , Severe, Routine, 11/02/21 10:52:00 EDT Start Date: 11/02/21 Stop Date: 11/03/21 Status: Discontinued Problem List Condition Effective Dates Status Health [...] consistent with a cyst on CT at [facility] 04/2019(Confirmed) 04/2019 Active Coronary artery [...] Morbid obesity(Confirmed) Active Obstructive sleep apnea(Confirmed) Active .Lead Javascript Engineer: Tejas Segal [phone], [facility]. CPP(Confirmed) Active Post traumatic stress disord er (PTSD)(Confirmed) 1999 Active Severe obesity(Confirmed) Active 1-Seen in CT scan of the abdomen done at [facility] on 08-08-16 Results Radiology Reports * Exam Date Time Procedure Performing Provider Status 11/01/21 4:30 AM Chest Portable Temitope No; Auth (Verified) Notes: (Chest Portable) Reason For Exam: Shortness of Breath RESULT: Chest Portable Chest Portable Hx of Present Illness: CP diff breathing; Reason: Shortness of Breath; Clinical Question(s): CHF COMPARISON: 09/11/2021. FINDINGS: Limited due to portable technique and the patient's body habitus. LINES AND TUBES: None. LUNGS AND PLEURA: There is no evidence of focal airspace disease. There is no evidence of a pneumothorax or pleural effusion. HEART, MEDIASTINUM AND CAROLA: Stable prominence of the cardiomediastinal silhouette. BONES AND SOFT TISSUES: No acute abnormality. IMPRESSION: Stable chest radiograph without evidence of interval change. WSN: [id number] Ordering Physician: Lexus Romano Dictated By: Jeanette Black MD Dictated Date/Time: 11/01/21 8:26 am Reviewed By: Jeanette Black MD Signed By: Jeanette Black MD Signed Date/Time: 11/01/21 8:26 am Transcribed By: SHANNA Transcribed Date/Time: 11/01/21 8:24 am Vital Signs Most recent to oldest [Reference Range]: 1 2 3 4 Height 180 cm (11/03/21 2:14 AM) 180 cm (11/02/21 7:16 PM) 180 cm (11/02/21 2:08 PM) Weight 183 kg (11/02/21 6:45 AM) 184 kg (11/01/21 11:27 AM) Oxygen Saturation [94-100 %] 93 % *L* (11/03/21 7:34 AM) 95 % (11/03/21 2:14 AM) 91 % *L* (11/02/21 7:16 PM) Pulse Rate [55-90 bpm] 58 bpm (11/03/21 9:04 AM) 58 bpm (11/03/21 7:34 AM) 66 bpm (11/03/21 2:14 AM) Body Mass Index [18.5-24.99] 56.79 *>HHI* (11/01/21 11:27 AM) Blood Pressure [90-138/55-84 mm Hg] 109/74mm Hg (11/03/21 9:04 AM) 109/74mm Hg (11/03/21 7:34 AM) 120/82mm Hg (11/03/21 2:14 AM) Respiratory Rate [16-30 br/min] 20 br/min (11/03/21 7:34 AM) 16 br/min (11/03/21 6:07 AM) 16 br/min (11/03/21 6:05 AM) 16 br/min (11/03/21 6:05 AM) Temperature [96.8-100.4 DegF] 97.3 DegF (11/03/21 7:34 AM) 97.6 DegF (11/03/21 2:14 AM) 97.3 DegF (11/02/21 7:16 PM) Liters per Minute 2 L/min (11/03/21 7:34 AM) 3 L/min (11/01/21 3:45 AM) 3 L/min (11/01/21 3:33 AM) Mode of Delivery (Oxygen) Nasal cannula (11/03/21 7:34 AM) Room air (11/03/21 2:14 AM) Room air (11/02/21 7:16 PM) Blood pressure sites Arm, right (11/03/21 7:34 AM) Arm, left (11/02/21 7:16 PM) Arm, right (11/02/21 2:08 PM) Temperature Route Temporal (11/03/21 7:34 AM) Temporal (11/03/21 2:14 AM) Temporal (11/02/21 7:16 PM) Dry Weight 184 kg (11/01/21 11:27 AM) Weight Obtained Via Standing scale (11/02/21 6:45 AM) Social History Social History Type Response Smoking Status 10 or more cigarette s (1/2 pack or more)/day in last 30 days; Interested in cessation: No; Patient wants NRT during admission No entered on: 06/03/21 Sex
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
--- OUTSIDE RECORDS SUMMARY | 2023-01-20 23:57 | XMS_ITS | Continuity of Care Document ---
Author Name Unknown Organization [facility] Address [address] [place] [address]- Care Team Providers Care Brim Curler Name Role Phone Preet Sofia MD Primary Care Physician Encounter [facility] Date(s): 11/09/22 - 12/09/22 [facility]/[address] [address]- [place] Allergies, Adverse Reactions, Alerts No Known [...] History: [facility] 2Location History: [facility] 3Location History: [facility] 4Location History: [facility] Medications aspirin 81 mg oral delayed [...] 11 Refills, Maintenance, 12/22/22 14:06:00 EDT, Tablet, [id number], 178, cm, 11/22/22 18:01:00 EDT, [...] 11/22/22 14:14:00 EDT, Route to Pharmacy Electronically, [facility][id number], Partial fill upon patient request if the prescription... Start Date: 11/22/22 Stop Date: 12/22/22 Status: Ordered carvedilol 3.125 mg oral tablet 3.125 mg, By Mouth, 2 times a day, # 60 tablet, Refills 5, Tot. Refills 5, Maintenance, 12/22/22 14:14:00 EDT, Route to Pharmacy Electronically, [facility]/pharmacy #[id number], 178, cm, 11/22/22 18:01:00 EDT, [...] 0 Refills, Maintenance, 12/06/22 13:35:00 EDT, Tablet, [facility] Start Date: 12/06/22 Status: Ordered duloxetine 30 mg oral enteric coated capsule 1 capsule = 30 mg, By Mouth, Daily at bedtime, for 30 days, # 30 capsule, 1 Refills, Hard Stop 01/21/23 14:06:00 EDT, 11/22/22 14:06:00 EDT, Capsule, [facility]/pharmacy #[id number], Partial fill upon patient request if the prescription is for a schedule II opioid... Start Date: 11/22/22 Stop Date: 01/21/23 Status: Ordered duloxetine 30 mg oral enteric coated capsule 1 capsule = 30 mg, By Mouth, Daily at bedtime, # 30 capsule, 5 Refills, Maintenance, 01/21/23 14:06:00 EDT, Capsule, [facility]/pharmacy #[id number], Partial fill upon patient request if the prescription is for aschedule II opioid drug., 178 cm, 11/22/22 18:01:0... Start Date: 01/21/23 Stop [...] 5 Refills, Maintenance, 12/22/22 14:07:00 EDT, Tablet, [facility]/pharmacy [facility][id number], 1 tablet By Mouth 2 times [...] 03/22/23 14:07:00 EST, 11/22/22 14:07:00 EDT, Tablet, [facility]/pharmacy [facility][id number], 178, cm, 11/22/22 11:40:00 EDT, [...] Refills, Maintenance, 10/19/22 20:08:00 EDT, REC Powder, [facility]/pharmacy #[id number], 17 Gm By Mouth Daily,PRN:Constipation,Instr:dissolve [...] 11/22/22 14:07:00 EDT, Route to Pharmacy Electronically, [facility]/pharmacy #[id number], 178, cm, 11/22/22 11:40:00 EDT, Height, 164.9, kg, 07... Start Date: 11/22/22 Stop Date: 12/22/22 Status: Ordered spironolactone 25 mg oral tablet 25 mg, 1, tablet, By Mouth, Daily, # 30 tablet, Refills 5, Tot. Refills 5, Maintenance, 12/22/22 14:07:00 EDT, Route to Pharmacy Electronically, [facility]/pharmacy #[id number], 178, cm, 11/22/22 18:01:00 EDT, [...] 14:06:00 EDT, Aerosol, Route to Pharmacy Electronically, [id number]... Start Date: 11/22/22 Status: Ordered torsemide 20 mg oral tablet 1 tablet = 20 mg, By Mouth, 2 times a day, for 30 days, # 60 tablet, 0 Refills, Hard Stop 12/22/22 14:08:00 EDT, 11/22/22 14:08:00 EDT, Tablet, [id number], 178, cm, 11/22/22 11:40:00 EDT, [...] 01/31/23 14:05:45 EDT, 10/19/22 20:00:00 EDT, Tablet, [id number], 180, cm, 10/19/22 4:49:00 EDT, Height, 181, kg, 09/26/22 14:48:00... Start Date: 10/19/22 Stop Date: 01/31/23 Status: Ordered Tylenol Extra Strength 500 mg oral tablet 1 tablet = 500 mg, By Mouth, 3 times a day, PRN Pain , Moderate, # 100 tablet, 5 Refills, Maintenance, 01/31/23 14:05:00 EDT, Tablet, [id number], 178, cm, 11/22/22 [...] consistent with a cyst on CT at [facility] 04/2019 Confirmed 04/2019 Active Coronary [...] Confirmed Active Obstructive sleep apnea Confirmed Active .Show Card Letterer: Lucita Segal [phone], [facility]. CPP Confirmed Active Post traumatic stress disorder (PTSD) Confirmed 1999 Active Pulmonary embolus most branches of R lung, Dx at [place], [place] on 11/28/22. L popliteal & peroneal DVT 11/18/22 Confirmed Active Severe obesity Confirmed Active 1-Seen in CT scan of the abdomen done at [facility] on 08-08-16 Social History Social History Type Response Smoking Status 10 or more cigarette s (1/2 pack or more)/day in last 30 days; Interested in cessation: No; Patient wants NRT during admission No entered on: 06/03/21 Sex Male Patient Care team information Care Team Personnel Name: Jim Munguia RN Position: [facility] RN Supv Member Role: Primary [...] Care Nurse Name: Sven Bustos RN Position: [facility] RN Member Role: Primary Care Nurse Name: Sharron Schaefer RN Position: [facility] RN Member Role: Primary Care Nurse Name: Franca Luis LPN Position: [facility] RN Member Role: Primary Care Nurse Name: Sheryl Linda RN Position: [facility] RN Member Role: Primary Care Nurse Name: Zara Aldridge RN Position: [facility] RN Member Role: Primary Care Nurse Name: Preet Sofia MD Position: [facility] Physician - Primary Care Member Role: PCP Address: Address: [address] [place] [id number] Name: Betsey Harvey RN Position: [facility] RN Member Role: Primary Care Nurse Name: Camila Cervantes RN Position: [facility] RN Member Role: Primary Care Nurse Name: Aruna Warren RN Position: [facility] RN Member Role: Primary Care Nurse Name: Naomi Kyle RN Position: [facility] RN Member Role: Primary Care Nurse Name: Pavan Espinoza RN Position: [facility] RN Member Role: Primary Care Nurse Name: Lynne Shah RN Position: [facility] RN Member Role: Primary Care Nurse Name: Ashwini Larson RN Position: [facility] SN RN Member Role: Primary Care Nurse Name: Lorraine Good RN Position: [facility] RN Member Role: Primary Care Nurse Name: Mohan Quijano RN Position: [facility] RN Member Role: Primary Care Nurse Name: Shaina Nagy RN Position: [facility] RN Member Role: Primary Care Nurse Name: Sarah Gordon RN Position: [facility] Onco RN Member Role: Primary Care Nurse Name: Catalina Cook RN Position: [facility] RN Member Role: Primary Care Nurse Name: Sweta Lang RN Position: [facility] RN Member Role: Primary Care Nurse Name: Kely Morton RN Position: [facility] RN Member Role: Primary Care Nurse Care Team Related Persons Name: DIAN RODGERS Address: [place] [address] Name: KT LANDEROS Address: [place] [address] Name: GABRIELLAABBYTAE Address: home [place] [id number]
--- OUTSIDE RECORDS SUMMARY | 2023-01-20 23:57 | XMS_ITS | Continuity of Care Document ---
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 Name Role Phone Preet Sofia MD Primary Care Physician [phone] Encounter [facility] Date(s): 12/16/22 - 12/20/[address] [id number]- Encounter Diagnosis Pulmonary emboli(Final) - 12/16/22 Discharge Disposition: A-D/C AMA Attending Physician: Miguelina Luciano MD Admitting Physician: Kody Sena MD Referring Physician: [...] 02/27/10 Recorded 1Location History: [facility] 2Location History: [facility] 3Location History: [facility] 4Location History: [facility] Medications amoxicillin-clavulanate 875 mg-125 mg oral tablet = 875 mg, By Mouth, 2 times a day, Please take 2 times a day, # 14 tablet, 0 Refills, Acute 12/27/22 23:59:00 EDT, 12/20/22 16:08:00 EDT, Tablet, [id number], Partial fill upon patient requestif the prescription is for a schedule II opioid danya. Start Date: 12/20/22 Stop Date: 12/27/22 Status: Ordered apixaban 5 mg oral tablet See Instructions, Please take 10 mg By Mouth 2 times a day (that is two tablets) for the next 3 days (last dose to be on 12/23). Then take 5mg twice a day (1 tablet)., # 66 tablet, 0 Refills, Maintenance, 12/20/22 16:05:00 EDT, Tablet, [facility]/pharmacy #[id number]... Start Date: 12/20/22 Status: Ordered aspirin 81 mg oral delayed release tablet 1 tablet = 81 mg, By Mouth, Daily, # 90 tablet, 3 Refills, Maintenance, 12/10/22 1:31:00 EDT, CR Tablet, [facility]/pharmacy #[id number], 178, cm, 11/22/22 18:01:00 EDT, Height, 164.9, kg, 11/18/22 18:49:00 EDT, Dry Weight Start Date: 12/10/22 Status: Ordered atorvastatin 80 mg oral tablet 1 tablet = 80 mg, By Mouth, Daily, # 30 tablet, 11 Refills, Maintenance, 12/22/22 14:06:00 EDT, Tablet, [facility]/pharmacy #[id number], 178, cm, 11/22/22 18:01:00 EDT, [...] 12/22/22 14:14:00 EDT, Route to Pharmacy Electronically, [facility]/pharmacy #[id number], 178, cm, 11/22/22 18:01:00 EDT, [...] oral tablet 2 mg, Tablet, By Mouth, Every 6 hours, PRN for Pain , Severe, Routine, 12/16/22 20:26:00 EDT Start Date: 12/16/22 Stop Date: 12/21/22 Status: Discontinued Dilaudid 2 mg oral tablet See Instructions, PRN Pain , Severe, 1 tablet By Mouth every 4 hours up to 3x/day during daytime asneeded for severe pain, =14 day or more supply., # 42 tablet, 0 Refills, Maintenance, 12/06/22 13:35:00 EDT, Tablet, [facility] Start Date: 12/06/22 Status: Ordered doxycycline hyclate 100 mg oral capsule 1 capsule = 100 mg, By Mouth, 2 times a day, for 10 days, # 14 capsule, 0 Refills, Acute 12/30/22 16:10:00 EDT, 12/20/22 16:10:00 EDT, Capsule, [facility]/pharmacy #[id number], Partial fill upon patient request if the prescription is for a schedule II opioid drug.... Start Date: 12/20/22 Stop Date: 12/30/22 Status: Ordered duloxetine 30 mg oral enteric coated capsule 1 capsule = 30 mg, By Mouth, Daily at bedtime, # 30 capsule, 5 Refills, Maintenance, 01/21/23 14:06:00 EDT, Capsule, [facility]/pharmacy #[id number], Partial fill upon patient request [...] 03/22/23 14:07:00 EST, 11/22/22 14:07:00 EDT, Tablet, [id number], 178, cm, 11/22/22 11:40:00 EDT, Height, 164.9, kg, 11/18/22 18:49:00 EDT, Dry Weight Start Date: 11/22/22 Stop Date: 03/22/23 Status: Ordered levothyroxine 0.2 mg oral tablet 1 tablet = 200 mcg, By Mouth, Daily, # 30 tablet, 11 Refills, Maintenance, 03/22/23 14:07:00 EST, Tablet, [id number], 178, cm, 11/22/22 18:01:00 EDT, Height, [...] Refills, Maintenance, 10/19/22 20:08:00 EDT, REC Powder, [facility]/pharmacy #[id number], 17 Gm By Mouth Daily,PRN:Constipation,Instr:dissolve in water before taking, 180, cm,... Start Date: 10/19/22 Status: Ordered nitroglycerin 0.4 mg sublingual tablet 1 tablet = 0.4 mg, Sublingual, Every 5 minutes, PRN Chest Pain, # 100 tablet, 0 Refills, Maintenance, 06/09/21 12:34:00 EST, Tablet, [facility], Partial fill upon [...] 12/22/22 14:07:00 EDT, Route to Pharmacy Electronically, [facility]/pharmacy #[id number], 178, cm, 11/22/22 18:01:00 EDT, [...] 14:06:00 EDT, Aerosol, Route to Pharmacy Electronically, [id number]... Start Date: 11/22/22 Status: Ordered torsemide 20 mg oral tablet 1 tablet = 20 mg, By Mouth, 2 times a day, # 60 tablet, 5 Refills, Maintenance, 12/22/22 14:08:00 EDT, Tablet, [facility]/pharmacy #[id number], 178, cm, 11/22/22 18:01:00 EDT, Height, 164.9, kg, 11/18/22 18:49:00EDT, Dry Weight Start Date: 12/22/22 Stop Date: 06/20/23 Status: Ordered Tylenol Extra Strength 500 mg oral tablet 1 tablet = 500 mg, By Mouth, 3 times a day, PRN Pain , Moderate, for 14 days, # 24 tablet, 5 Refills, Hard Stop 01/31/23 14:05:45 EDT, 10/19/22 20:00:00 EDT, Tablet, [facility]/pharmacy #[id number], 180, cm, 10/19/22 [...] consistent with a cyst on CT at [facility] 04/2019 Confirmed 04/2019 Active Coronary [...] Confirmed Active Obstructive sleep apnea Confirmed Active .Physician Specialist: Lucita Segal [phone], [facility]. CPP Confirmed Active Post traumatic stress disorder (PTSD) Confirmed 1999 Active Pulmonary embolus most branches of R lung, Dx at [place], [place] on 11/28/22. L popliteal & peroneal DVT 11/18/22 Confirmed Active Severe obesity Confirmed Active 1-Seen in CT scan of the abdomen done at [facility] on 08-08-16 Results Orders for Microbiology Reports Name Date Blood Culture 12/17/22 Blood Culture #2 12/17/22 Microbiology Reports TEST:Blood Culture STATUS:Unauthenticated BODY SITE: SOURCE:Blood COLLECTED DATE/TIME:12/17/22 9:50 AM Blood Culture SPECIMEN DESCRIPTION : BLOOD LEFT SPECIAL REQUESTS : NONE CULTURE : NO GROWTH 3 DAYS REPORT STATUS : PRELIMINARY REPORT TEST:Blood Culture, Second Order STATUS:Unauthenticated BODY SITE: SOURCE:Blood COLLECTED DATE/TIME:12/17/22 9:50 AM Blood Culture, Second Order SPECIMEN DESCRIPTION : BLOOD RIGHT SPECIAL REQUESTS : NONE CULTURE : NO GROWTH 3 DAYS REPORT STATUS : PRELIMINARY REPORT Radiology Reports * Exam Date Time Procedure Performing Provider Status 12/19/22 8:50 AM US Doppler Ext Lower Venous Bilat Camila Che; Auth (Verified) Notes: (US Doppler Ext Lower Venous Bilat) Reason For Exam: DVT/PE;Other: RESULT: US Doppler Ext Lower Venous Bilat US Doppler Ext Lower Venous Bilat Reason: Other:; DVT PE; Clinical Question(s): Thrombosis; Order Comment: 12 17 2022 16:34:09 EDT RN N Annisxm COMPARISON: None IMAGING TECHNIQUE: Ultrasound of the veins from the groin through the calf was performed using grayscale, color, and spectral Doppler ultrasound assessing for complete compressibility and normal flowcharacteristics. FINDINGS: RIGHT LOWER EXTREMITY: Common femoral vein: Patent. No thrombosis. Femoral vein: Patent. No thrombosis. Popliteal vein: Patent. No thrombosis. Gastrocnemius veins: The visualized portions are patent without evidence of thrombosis. Peroneal veins: The visualized portions are patent without evidence of thrombosis. Posterior tibial veins: The visualized portions are patent without evidence of thrombosis. LEFT LOWER EXTREMITY: Common femoral vein: Patent. No thrombosis. Femoral vein: Patent. No thrombosis. Popliteal vein: Patent. No thrombosis. Gastrocnemius veins: The visualized portions are patent without evidence of thrombosis. Peroneal veins: The visualized portions are patent without evidence of thrombosis. Posterior tibial veins: The visualized portions are patent without evidence of thrombosis. OTHER FINDINGS: Fluid collection in the left popliteal fossa measuring 4.3 x 1.2 x 2.8 cm. IMPRESSION: No evidence of deep venous thrombosis. Moderate-sized Jimenes's cyst on the left. WSN: [id number] Ordering Physician: Larry Elena Dictated By: Nilton Jiménez MD Dictated Date/Time: 12/19/22 8:54 am Reviewed By: Nilton Jiménez MD Signed By: Nilton Jiménez MD Signed Date/Time: 12/19/22 8:54 am Transcribed By: SHANNA Transcribed Date/Time: 12/19/22 8:53 am * Exam Date Time Procedure Performing Provider Status 12/17/22 3:21 PM Foot Min 3 Views Right Julissa Choi ; Auth (Verified) Notes: (Foot Min 3 Views Right) Reason For Exam: 52 M multiple toe wounds, R1, 4,5;Other: RESULT: Foot Min 3 Views Right Foot Min 3 Views Right, 3 views Reason: Multiple wounds. Question osteomyelitis COMPARISON: 09/27/2022 FINDINGS: No fractures or bone lesions. Mild tibiotalar osteoarthritis. Normal soft tissues. IMPRESSION: No radiographic evidence of osteomyelitis. WSN: [id number] Ordering Physician: Sandip Alba Dictated By: Candelario Cardona MD Dictated Date/Time: 12/17/22 4:12 pm Reviewed By: Candelario Cardona MD Signed By: Candelario Cardona MD Signed Date/Time: 12/17/22 4:12 pm Transcribed By: SHANNA Transcribed Date/Time: 12/17/22 4:08 pm * Exam Date Time Procedure Performing Provider Status 12/16/22 3:37 AM Foot Min 3 Views Left Mathieu Yo; Auth (Verified) Notes: (Foot Min 3 Views Left) Reason For Exam: with Pain;Trauma RESULT: Foot Min 3 Views Left Foot Min 3 Views Left, 3 views Hx of Present Illness: CP SOB; Reason: Trauma; with Pain; Clinical Question(s): Fracture COMPARISON: None. FINDINGS: Minimally displaced transverse fracture through the base of the fifth metatarsal bone and associated soft tissue swelling. No significant arthritic changes. IMPRESSION: Minimally displaced fracture at the base of the fifth metatarsal. I have personally reviewed the images and I agree with this report. WSN: [id number] Ordering Physician: Annalisa Harrington Dictated By: Antonio Doe DO Dictated Date/Time: 12/16/22 8:20 am Reviewed By: Altaf Mensah MD Signed By: Altaf Mensah MD Signed Date/Time: 12/16/22 8:25 am Transcribed By: SHANNA Transcribed Date/Time: 12/16/22 8:16 am * Exam Date Time Procedure Performing Provider Status 12/16/22 1:44 AM Chest 2 Views Frontal and Lat Guadalupe Cantrell; Auth (Verified) Notes: (Chest 2 Views Frontal and Lat) Reason For Exam: Chest Pain;Other: RESULT: Chest 2 Views Frontal and Lat PA and lateral chest dated December 16, 2022. Comparison films are from November 20, 2022. HISTORY: Chest pain and shortness of breath. FINDINGS: Today's study is minimally limited due to patient body habitus. The cardiac silhouette is significantly increased in size and unchanged. There is some increased attenuation present at the lung bases most consistent with atelectasis. Unfortunately, the costophrenic sulci are not included on the lateral view. Degenerative changes are noted in the spine. IMPRESSION: Findings are most consistent with bibasilar atelectasis and stable marked cardiomegaly. Examination 33228. Thank you for allowing me to participate in the care of this patient. WSN: [id number] Ordering Physician: Umair Cesar Dictated By: Rafy Gillespie MD Dictated Date/Time: 12/16/22 8:04 am Reviewed By: Rafy Gillespie MD Signed By: Rafy Gillespie MD Signed Date/Time: 12/16/22 8:04 am Transcribed By: SHANNA Transcribed Date/Time: 12/16/22 8:04 am * Exam Date Time Procedure Performing Provider Status 12/16/22 4:[address] Angio Chest Jason Estevez; Auth (Ve rified) Notes: (CT Angio Chest) Reason For Exam: PE suspected, Intermediate prob, positive D-dimer;Other: RESULT: CT Angio Chest EXAMINATION: CT Angio Chest INDICATION: Shortness of breath; Reason: Other:; PE suspected, Intermediate prob, positive D-dimer;Clinical Question(s): Pulmonary Embolism. TECHNIQUE: Spiral CTA of the chest was performed after rapid IV contrast administration without cardiac gating, triggered by an SP on the main pulmonary artery. Images are formatted in multiple planes using 2-D multiplanar and 3-D maximum intensity projection. 100 cc of Omnipaque 300 was administered intravenously. Weight-based protocol using automatic tube modulation was used to optimize exposure parameters. CTDIvol Body: 10.65 mGy, DLP Body: 335 mGy*cm. COMPARISONS: 09/17/2022. ANGIOGRAPHIC FINDINGS: Acute bilateral segmental pulmonary emboli (images 183, 242, 266, series 302). The right embolus appears to arise from the previously seen thin peripheral filling defect in the right upper lobar pulmonary artery. No interventricular septal bowing or reflux of contrast into the IVC. No evidence of right heart strain. No acute aortic abnormality seen on this study performed without cardiac gating. NON-ANGIOGRAPHIC FINDINGS: Station Engineer Main Line View Findings, Lines and Tubes: None. Trachea and Airways: Patent proximal tracheobronchial tree. Lungs and Pleura: Mild bibasilar atelectasis and scarring, similar to prior. No effusion or pneumothorax. There is moderate motion artifact limiting evaluation for pulmonary nodules. Mild upper lung emphysema. Mediastinum and lore: No mass or hematoma. No mediastinal or hilar lymphadenopathy. No esophageal abnormality. Heart: Marked cardiomegaly with left ventricular significant enlargement and also left ventricular hypertrophy. The latter can be seen if there are systemic history of hypertension. There is severe coronary artery atherosclerosis along the LAD. No pericardial effusion. Chest Wall Soft Tissues: No acute abnormality of the visualized chest wall. Diaphragm and upper abdomen: Limited images of the upper most abdomen demonstrate hepatic steatosis. Bones: No acute abnormality. Osteopenic bones and moderate multilevel disc degenerative changes. IMPRESSION: Acute pulmonary emboli. Findings do not meet CT criteria for submassive PE. Results were conveyed by Cortext by Dr. Dumont to Annalisa WILLIAM on 12/16/2022 at 5:00 AM with understanding acknowledged. I have personally reviewed the images and I agree with this report. WSN: [id number] Ordering Physician: Annalisa Harrington Dictated By: Andres Dumont MD Dictated Date/Time: 12/16/22 6:39 am Reviewed By: Marietta Mahoney MD Signed By: Marietta Mahoney MD Signed Date/Time: 12/16/22 6:44 am Transcribed By: SHANNA Transcribed Date/Time: 12/16/22 5:01 am Vital Signs Most recent to oldest [Reference Range]: 1 2 3 Height 180 cm (12/20/22 4:29 PM) 180 cm (12/20/22 11:45 AM) 180 cm (12/20/22 8:13 AM) Weight 156.9 kg (12/20/22 6:10 AM) 145.1 kg (12/19/22 7:59 AM) 131.0 kg (12/16/22 8:14 PM) Oxygen Saturation [94-100 %] 96 % (12/20/22 4:29 PM) 96 % (12/20/22 11:45 AM) 98 % (12/20/22 8:13 AM) Pulse Rate [55-90 bpm] 69 bpm (12/20/22 4:29 PM) 65 bpm (12/20/22 11:45 AM) 68 bpm (12/20/22 8:13 AM) Body Mass Index [18.5-24.99 kg/m2] 48.43 kg/m2 *>HHI* (12/20/22 6:10 AM) 44.78 kg/m2 *>HHI* (12/19/22 7:59 AM) 40.43 kg/m2 *>HHI* (12/16/22 8:14 PM) Blood Pressure [90-138/55-84 mm Hg] 140/83mm Hg *H* (12/20/22 4:29 PM) 142/65mm Hg *H* (12/20/22 11:45 AM) 120/73mm Hg (12/20/22 8:13 AM) Respiratory Rate [16-30 br/min] 17 br/min (12/20/22 4:29 PM) 18 br/min (12/20/22 11:45 AM) 18 br/min (12/20/22 10:56 AM) Temperature [96.8-100.4 DegF] 97.6 DegF (12/20/22 4:29 PM) 97.6 DegF (12/20/22 11:45 AM) 97.5 DegF (12/20/22 8:13 AM) Liters per Minute 4 L/min (12/20/22 4:29 PM) 4 L/min (12/20/22 11:45 AM) 4 L/min (12/20/22 8:13 AM) Mode of Delivery (Oxygen) Nasal cannula 1 (12/20/22 4:29 PM) Room air 2 (12/20/22 11:45 AM) Nasal cannula (12/20/22 8:13 AM) Blood pressure sites Arm, left (12/20/22 4:29 PM) Arm, left (12/20/22 11:45 AM) Arm, left (8/28/23 8:13 AM) Temperature Route Oral (12/20/22 4:29 PM) Oral (12/20/22 11:45 AM) Oral (12/20/22 8:13 AM) Dry Weight 156.9 kg (12/20/22 6:10 AM) 159 kg (12/16/22 8:14 PM) 159 kg (12/15/22 11:52 PM) Weight Obtained Via Bed scale (12/20/22 6:10 AM) Bed scale (12/16/22 8:14 PM) Dry Weight Obtained Via Bed scale (12/20/22 6:10 AM) Patient/family stated (12/15/22 10:02 PM) 1Result Comment: humidifier 2Result Comment: humidification Social History Social History Type Response Smoking Status 10 or more cigarette s (1/2 pack or more)/day in last 30 days; Interested in cessation: No; Patient wants NRT during admission No entered on: 06/03/21 Sex Male History and physical note * Jodee TORRES, David: PERFORM Event Display: History and Physical Hospital Authored Date: [id number] Patient: ??BENNY MONTERO ? Age:??52 Years?Sex:??Male?:??1970?? Chief Complaint/Reason for Consultation leg wounds and shortness of breath History of Present Illness Patient is a 52-year-old male with past medical history of ischemic cardiomyopathy??with reduced EF20 to 25% on most recent echo, was 10 to 15% prior to that,??CAD s/p??PTCA,??morbid obesity,??IONA,??noncompliant with??CPAP,??polysubstance abuse,??hypertension,??prediabetes, CKD,??depression/anxiety, PTSD,??who was recently admitted??at [facility] in end of October??where he was managed for??heart failure exacerbation??and was found to have??DVT.?? It appears that he was discharged on Eliquis but did not fill it till??November 30.?? At some point since his discharge from??[facility]??and today??he??went to hospital in [place] and was??reportedly??diagnosed with PE.?? Patient is vague about??timeline??and believes he started taking Eliquis after he was discharged from hospital in [place].?? He does not remember being loaded??with a higher dose of Eliquis 10 mg 2 times a day??and believes that he??was taking it only once a day??and??missing it on a few days due to memory problems and??poor social support.?? He is currently homeless and having a lot of social troubles.?While at [place] he wore his??sneakers which??led to wounds on his foot??for which he was??started on Keflex??and has not been??taking it as??recommended.?? He presented today??with complaints of chest pressure, shortness of breath??although denies both of them at the time of my interview.?? He denies any radiation of pain and feels it was just heaviness??that has resolved now.?? He reports not taking most of his medications and being not compliant with diet.?? He does report??swelling in his legs.??He is not using CPAP machine for his sleep apnea.?? He is currently on 4 L nasal cannula and tells me that he has been using??4 L nasal cannula at home.?? Per last discharge summary he was dischargedon oxygen but it is unclear what??dose was recommended.?? He denies any calf pain.?? No back pain.?? He does report pain in his legs which is a chronic issue for him for which she reported being on Dilaudid??from his PCP.?? No cough or runny nose or sore throat.?? No abdominal pain or constipation or diarrhea or nausea or vomiting. ??No fever or chills.?? No headache or??vision changes. ? In the ED he was given 160 mg of Lovenox, 40 mg Lasix IV, Dilaudid x2 and is being admitted for further management. ?? Review of Systems All other review of systems were negative with the exception of those noted above in the HPI.?? Objective Measurements?? Height: 180 cm (12/16/22) Weight: 131 kg (12/16/22) Dry Weight: 159 kg (12/16/22) Body Mass Index:??40.43 kg/m2??Critical (12/16/22) ? Vital Signs?? Temperature: 97.5 DegF (12/16/22 20:14:00) Temperature Route: Oral (12/16/22 20:14:00) Pulse Rate: 75 bpm (12/17/22 01:36:00) Respiratory Rate: 18 br/min (12/16/22 21:02:00) Vented: No (12/16/22 06:06:00) Systolic Blood Pressure: 119 mm Hg (12/17/22 01:36:00) Diastolic Blood Pressure: 79 mm Hg (12/17/22 01:36:00) Blood pressure sites: Arm, right (12/16/22 20:14:00) Mean Arterial Pressure: 88 mm Hg (12/16/22 20:14:00) Pulse Pressure: 57 mm Hg (12/16/22 20:14:00) Oxygen Saturation: 97 % (12/16/22 20:14:00) Liters per Minute: 4 L/min (12/16/22 20:14:00) Mode of Delivery (Oxygen): Nasal cannula (12/16/22 20:14:00) Early Warning Score: 2 (12/17/22 01:37:12) ? Intake/Output? 12/16 06:04 12/17 07:00 12/16 07:00 12/15 07:00 12/14 07:00 ?? 12/17 03:16 12/17 03:16 12/17 06:59 12/16 06:59 12/15 06:59 Intake ?0 ?0 ?0 ?0 ?0 Output ?400 ?0 ?400 ?0 ?0 Net Total ? -400 ?0 ? -400 ?0 ?0 ? Physical Exam Constitutional: Alert, extremely agitated??and using foul language. Head EENT: Extraocular muscle movement intact.??Moist mucous membranes.?? Neck: Supple. ??Unable to assess JVD due to body status Respiratory: Clear to auscultation. No wheezing or crackles. No use of accessory muscles.?? No radial radial delay Cardiovascular: Murmur present Gastrointestinal: Abdomen soft, non-tender, non-distended. Normal bowel sounds. Genitourinary: No suprapubic tenderness Extremities: No??bilateral pedal edema,??wounds on the toes and??dorsum of great toe??with some dryblood??and blisters.?? No significant warmth or tenderness??over the feet. ??Reports reduced sensation over the feet. Neurologic: AAOx3, Speech normal. No focal neurological deficits. Skin: No rash. Psychiatric: Anxious and agitated Assessment/Plan Diagnoses Patient is a 52-year-old male with past medical history of ischemic cardiomyopathy??with reduced EF20 to 25% on most recent echo, was 10 to 15% prior to that,??CAD s/p??PTCA,??morbid obesity,??IONA,??noncompliant with??CPAP,??polysubstance abuse,??hypertension,??prediabetes, CKD,??depression/anxiety, PTSD,??who was recently admitted??at [facility] in end of October??where he was managed for??heart failure exacerbation??and was found to have??DVT. ??Since discharge she has been diagnosed with PE at some hospital in [place], records not available. ??He comes in today with??foot wounds that he developed from his sneakers and??shortness of breath ? Acute pulmonary embolism??likely in the setting of recent??lower extremity thrombus -Reports being diagnosed with PE at a hospital in??[place] few weeks ago. ??Records not available for my review, day team to request -Hemodynamically stable, no -CT angio chest with acute PE, do not meet CT criteria for submassive PE -[facility]but based on fill history did not fill??till November 30??which he will use was likely after??being diagnosed with PE.?? He does not recall taking??10mg twice daily loading dose??and believes he was taking Eliquis??once a day. -Discussed with??hematology,??based on history??not on treatment failure of Eliquis as he was not taking it at prescribed dose.?He received??full dose Lovenox this morning. ??We will load with 10 mg twice daily of Eliquis??starting tonight. -Hematology recommendation appreciated ? Acute on chronic systolic CHF with EF about 20 to 25% Chronic hypoxic respiratory failure History of CAD Hypertension Hyperlipidemia Noncompliance??medication - Echo with EF of 20 to 25%, akinesis of entire apex, mid to apical anterior septal and inferoseptal grissom.?? No evidence of LV thrombus.?? Left ventricle mildly dilated.?? Left ventricular wall mildly thickened.?? RV poorly visualized. -Continue aspirin 81 mg daily, atorvastatin 80 mg daily -Continue carvedilol at low-dose 3.125 mg 2 times a day, increased to home dose of 6.25 mg tomorrowif blood pressure stable -Continue torsemide 20 mg 2 times a day, fold in spironolactone tomorrow morning if blood pressure stable -Hold Entresto as blood pressure soft, start tomorrow if blood pressures stable -History of NSVT on recent admission, monitor electrolytes -Continue cardiac telemetry monitoring with his low EF and??refusal of CPAP. -Will need AICD but per recent discharge summary not a candidate??at this time due to homelessness and??social situation.?? Reevaluate need for AICD -Discussed with cardiology team,??case reviewed with??director account management .??Jacob. ??We agreed with introduction of goal-directed medical therapy??as tolerated by blood pressure.?Since his troponin is flat and??not having any chest pain, will??defer formal consult at this time. ?? Foot wounds??secondary to??irritation from shoe Left fifth metatarsal fracture -Keflex 250 mg every 6 hours -Minimally displaced fracture at the base of fifth metatarsal.?? Ortho consult to be ordered by dayteam??in the morning??to evaluate??this nondisplaced fracture -I have asked him to not wear his shoes again??which led to these wounds. ?? History of COPD History of tobacco abuse -Pulmicort??twice daily -Counseled against smoking, patch as needed ? Depression/anxiety/PTSD Chronic pain -Continue duloxetine 30 mg daily at bedtime -Reports taking Dilaudid 2 mg every 4 hours for pain.?? Unclear etiology of pain but he does have??wounds on his feet??so we will do??Dilaudid 2 mg every 6 hours as needed??for severe pain and wean as able ? Hypothyroidism -Continue levothyroxine 200 mcg daily, check TSH with reflex ?? Morbid obesity IONA,??reports not using CPAP,??using oxygen instead.?? Noted to drop oxygen sats at night??with snoring and??apneic episodes.?? CPAP ordered but patient refusing understanding that??it could lead to hypoxia/cardiac arrest. -Will benefit from weight loss once acute issues resolve -Sleep study/CPAP??if agreeable ?? Homelessness -Social work consult DVT prophylaxis with??Eliquis Full code, confirmed with patient ?? Histories Allergies Allergies ?(Active and Proposed Allergies Only) NKA? (Severity: Unknown severity, Onset: Unknown) ? Past Medical History/Problem List Active Problems??(21) .Physician Specialist: Lucita Segal [phone], [facility]. [facility] Acid reflux Cannabinoid hyperemesis syndrome Chronic kidney disease (CKD) stage G2/A2, mildly decreased glomerular filtration rate (GFR) [id number] mL/min/1.73 square meter and albuminuria creatinine ratio [...] most branches of R lung, Dx at [place], [place] on 11/28/22. L popliteal & peroneal DVT 11/18/22 Severe obesity Thoracic cyst- 3.5 cm smoothly marginated thin-walled low-attenuation lesion at the right lateral margin of the esophagus in the azygos esophageal recess measuring 10 Hounsfield units consistent witha cyst on CT at [facility] 04/2019 ? Past Surgical History Median nerve: [...] or more)/day in last 30 days. ??Other: [id number]. Electronic Cigarette/Vaping Details:??Electronic Cigarette Use: Never. ? Family History Father (): COPD ? Medications Home Medications Acetaminophen (Tylenol Extra Strength 500 mg oral tablet)?1?tab(s)?500?Milligram?By Mouth?3 times a day?as needed?Pain , Moderate?for 14?Days Acetaminophen (Tylenol Extra Strength 500 mg oral tablet)?1?tab(s)?500?Milligram?By Mouth?3 times a day?as needed?Pain , Moderate apixaban (Eliquis 5 mg oral tablet)?1?tab(s)?5?Milligram?By Mouth?2 times a day Aspirin (aspirin 81 mg oral delayed release tablet)?1?tab(s)?81?Milligram?By Mouth?Daily Atorvastatin (atorvastatin 80 mg oral tablet)?1?tab(s)?80?Milligram?By Mouth?Daily Budesonide-Formoterol (Symbicort 80mcg/4.5mcg Inhaler)?2?puff(s)?Inhalation?2 times a day?in the morning and the eveninguse with spacer chamberrinse mouth and throat after use Carvedilol (carvedilol 3.125 mg oral tablet)?6.25?Milligram?2?tablet?By Mouth?2 times a day Duloxetine (duloxetine 30 mg oral enteric coated capsule)?1?capsule?30?Milligram?By Mouth?Daily at bedtime?for 30?Days Durable Medical Equipment (Hospital Bed)?See Instructions?semi-electric adjustable hospital bed , HOB elevated >30degr most of time. Duration: 2 yrs. Dx: I50.22 Hydromorphone (Dilaudid 2 mg oral tablet)?See Instructions?as needed?Pain , Severe?1 tablet By Mouth every 4 hours up to 3x/day during daytime as needed for severe pain, =14 day or more supply. Levothyroxine (levothyroxine 0.2 mg oral tablet)?1?tab(s)?200?Microgram?By Mouth?Daily?for 30?Days Levothyroxine (levothyroxine 0.2 mg oral tablet)?1?tab(s)?200?Microgram?By Mouth?Daily?for 30?Days Melatonin (melatonin 3 mg oral tablet)?3?Milligram?By Mouth?Daily at bedtime?as needed?Insomnia Miscellaneous Rx (Bariatric Walker)?See Instructions?Dx - Weakness / Leg Pain Miscellaneous Rx (bariatric commode)?See Instructions?Dx - Weakness / Leg Pain Miscellaneous Rx (Physical Therapy)?See Instructions?Dx: CHF exacerbation, Acute DVT Miscellaneous Rx (Chem 7 in a week, results to PCP)?See Instructions?Dx: CHF Nitroglycerin (nitroglycerin 0.4 mg sublingual tablet)?1?tab(s)?0.4?Milligram?Sublingual?Every 5 minutes?as needed?Chest Pain Pantoprazole (pantoprazole 20 mg oral delayed release tablet)?1?tab(s)?20?Milligram?By Mouth?Daily?for 30?Days Polyethylene Glycol 3350 (MiraLax oral powder for reconstitution)?17?gram?By Mouth?Daily?as needed?Constipation?dissolve in water before taking sacubitril-valsartan (Entresto 24 mg-26 mg oral tablet)?1?tab(s)?By Mouth?2 times a day?for 30?Days sacubitril-valsartan (Entresto 24 mg-26 mg oral tablet)?1?tab(s)?By Mouth?2 times a day?for 30?Days Spironolactone (spironolactone 25 mg oral tablet)?25?Milligram?1?tablet?By Mouth?Daily?for 30?Days torsemide (torsemide 20 mg oral tablet)?1?tab(s)?20?Milligram?By Mouth?2 times a day?for 30?Days ? Inpatient Medications Medications (19) Active SCHEDULED: (12) Apixaban 5 mg Tablet (Apixaban Tablet) ??10 mg, By Mouth, 2 times a day Apixaban 5 mg Tablet (Apixaban Tablet) ??5 mg, By Mouth, 2 times a day Aspirin 81 mg EC Tablet (aspirin 81 mg oral delayed release tablet) ??81 mg, By Mouth, Daily Atorvastatin 80 mg Tablet (atorvastatin 80 mg oral tablet) ??80 mg, By Mouth, Daily Budesonide 0.25 mg/2 mL Inhalation Susp (Pulmicort Inhalation Suspension) ??0.25 mg 2 mL, BAND Nebulizer, 2 times a day Carvedilol 3.125 mg Tablet (carvedilol 3.125 mg oral tablet) ??3.125 mg, By Mouth, 2 times a day Cephalexin Monohydrate 250 mg Capsule (Keflex Capsule) ??250 mg, By Mouth, Every 6 hours Duloxetine 30 mg Capsule (Duloxetine) ??30 mg, By Mouth, Daily at bedtime Levothyroxine 100 mcg Tablet (levothyroxine 0.1 mg oral tablet) ??200 mcg, By Mouth, Daily NaCl 0.9% Flush 3ml (NaCL 0.9% Flush) ??3 mL, IV Push, Every 8 hours Pantoprazole 20 mg EC Tablet (pantoprazole 20 mg oral delayed release tablet) ??20 mg, By Mouth, Daily Torsemide 20 mg tablet (torsemide 20 mg oral tablet) ??20 mg 1 tablet, By Mouth, 2 times a day CONTINUOUS: (0) PRN: (7) Acetaminophen 325 mg Tablet (Acetaminophen Tablet) ??650 mg, By Mouth, Every 4 hours HYDROmorphone 2 mg Tablet (Dilaudid 2 mg oral tablet) ??2 mg, By Mouth, Every 6 hours Melatonin 3 mg Tablet (Melatonin Tablet) ??3 mg, By Mouth, Daily at bedtime NaCl 0.9% Flush 3ml (NaCL 0.9% Flush) ??3 mL, IV Push, Every 8 hours Nitroglycerin 0.4 mg Sublingual Tablet (Nitroglycerin 0.4mg Sublingual Tablet) ??0.4 mg, Sublingual, Every 5 minutes Senna 8.6 mg / Docusate 50 mg tablet (Docusate/Senna Tablet) ??1 tablet, By Mouth, 2 times a day Simethicone 80 mg Chewable Tablet (Simethicone Tablet) ??80 mg, Chew, 3 times a day ? Results Recent Labs BLOOD COUNT & DIFF WBC 9.8 k/mm3 ()?? 12/16/2022 00:33 RBC 4.32 m/mm3 (Low)?? 12/16/2022 00:33 Hgb 12.8 Gm/dL (Low)?? 12/16/2022 00:33 Hct 40.6 % ()?? 12/16/2022 00:33 MCV 94.0 femtoliters ()?? 12/16/2022 00:33 MCH 29.6 pg ()?? 12/16/2022 00:33 MCHC 31.5 g/dL (Low)?? 12/16/2022 00:33 Platelet Count 360 k/mm3 ()?? 12/16/2022 00:33 RDW-SD 55.3 femtoliters (High)?? 12/16/2022 00:33 MPV 9.1 femtoliters (Low)?? 12/16/2022 00:33 Nucleated RBC (Automated) 0.0 #/100 WBC'S ()?? 12/16/2022 00:33 Abs. NRBC 0.0 k/mm3 ()?? 12/16/2022 00:33 Abs. Neut 6.8 k/mm3 ()?? 12/16/2022 00:33 Abs. Lymph 2.0 k/mm3 ()?? 12/16/2022 00:33 Abs. [place] 0.7 k/mm3 ()?? 12/16/2022 00:33 Abs. Eo 0.3 k/mm3 ()?? 12/16/2022 00:33 Abs. Baso 0.0 k/mm3 ()?? 12/16/2022 00:33 Neut % 69.0 % ()?? 12/16/2022 00:33 Lymph % 20.4 % ()?? 12/16/2022 00:33 [place] % 7.1 % ()?? 12/16/2022 00:33 Eos % 2.5 % ()?? 12/16/2022 00:33 Baso % 0.4 % ()?? 12/16/2022 00:33 Imm Gran 0.6 % ()?? 12/16/2022 00:33 Abs. Imm Gran 0.1 k/mm3 ()?? 12/16/2022 00:33 ?? CARDIAC Nt-Probnp 577 pg/mL (High)?? 12/16/2022 00:33 High Sensitivity Troponin (HSTnT) 82 ng/L (Critical)?? 12/16/2022 14:02 ?? CHEM GENERAL Sodium 141 mmol/L ()?? 12/16/2022 00:33 Potassium 4.9 mmol/L ()?? 12/16/2022 00:33 Chloride 99 mmol/L ()?? 12/16/2022 00:33 Bicarbonate Level 26 mmol/L ()?? 12/16/2022 00:33 Anion Gap 16 ()?? 12/16/2022 00:33 Glucose Level 95 mg/dL ()?? 12/16/2022 00:33 BUN 20 mg/dL ()?? 12/16/2022 00:33 Creatinine-Blood 1.4 mg/dL (High)?? 12/16/2022 00:33 Estimated GFR Creatinine 59 ML/MIN/1.73 M2 ()?? 12/16/2022 00:33 Calcium 9.4 mg/dL ()?? 12/16/2022 00:33 ?? COAG INR 1.0 ()?? 12/16/2022 02:50 Protime (PT) 10.9 seconds ()?? 12/16/2022 02:50 APTT 30.8 seconds ()?? 12/16/2022 12:26 D-Dimer 1.14 mg/L FEU (High)?? 12/16/2022 02:50 ?? ENDOCRINE/TUMOR MARKER TSH 57.10 uIU/mL (High)?? 12/16/2022 02:50 Free T4 0.48 ng/dL (Low)?? 12/16/2022 02:50 ?? HEME OTHER Hold Blue Top SPECIMEN DISCARDED AFTER 4 HOURS. ()?? 12/16/2022 00:33 ?? MISC. CHEMISTRY Hold Gel Top SPECIMEN DISCARDED AFTER 1 WEEK ()?? 12/16/2022 02:50 ?? URINE OTHER Est Creatinine Clearance 66.96 mL/min ()?? 12/16/2022 02:11 ?? VIROLOGY COVID-19 by RT-PCR NEGATIVE ()?? 12/16/2022 03:10 ? Admission evaluation note * Yun Wadsworth RN: MODIFY, SIGN, VERIFY, PERFORM, MODIFY Event Display: Admission Note Authored Date: Patient: BENNY MONTERO Age: 52 years Sex: Male : 1970 Associated Diagnoses: None Author: Yun Wadsworth RN Findings Narrative/Incidental Patient admitted to floor on stretcher, denies SOB. Patient had c/o feet pain . Patient has open blister on R and L small toes, open blister on left great toe, dry skin to ruperto feet, scars to left gluteal, skin checked with skein bleacher. While sleeping, pt's SpO2 dropped to 72% while asleep, bounces back and to 81-85% then increases to low 90s when woken up, HR decreased down to 39bpm fo ra fewn secon ds. Patient woken up, HR increase to 61 and SpO2 sustains 91-96% while awake. Provider notified, CPAP ordered but patient refused. Pt vverbalizes understanding of the reason for CPAP, but stated thathe does not want to use the it. All safety maintained, handoff to oncoming RN.. EKG study * Event Display: ECG 12-Lead Authored Date: Please click on pdf link to open report * Event Display: ECG 12-Lead Authored Date: Ventricular Rate: 68 BPM Atrial Rate: 68 BPM P-R Interval: 176 ms QRS Duration: 134 ms Q-T Interval: 444 ms QTC Calculation(Bazett): 472 ms P Lydia: -27 degrees R Lydia: -49 degrees T Lydia: 32 degrees Normal sinus rhythm Left axis deviation Non-specific intra-ventricular conduction block Minimal voltage criteria for LVH, may be normal variant ( [place] product ) Cannot rule out Septal infarct (cited on or before 24-JAN-2020) Possible Lateral infarct (cited on or before 24-JAN-2020) Abnormal ECG When compared with ECG of 17-NOV-2022 23:53, Questionable change in initial forces of Anterolateral leads Confirmed by ARSLAN FLOWERS ([id number]) on 12/16/2022 9:30:58 AM [place]: ARSLAN FLOWERS Heart * Event Display: Echocardiogram - Complete Authored Date: Transthoracic Echocardiography Report (TTE) Patient Demographics Patient Name TAKOTNA, Date of Study 12/17/2022 [employer] Gender Male Facility Race Ethnicity Date of 1970 Height: 70.87 inches Age 52 year(s) Weight: 288.81 pounds Accession Number [id number] BSA: 2.46 m2 Room Number S242 BMI: 40.43 kg/m2 Referring Physician Jodee Hernandez MD Interpreting Dafne eHrnandez MD Physician Camera Repairer Antonietta Leon Fellow Philipp dEdy DO Indications Cardiomyopathy, ischemic. Clinical History CAD. Cardiomyopathy. Obesity. Hypertension. IONA PSA CKD Study Data Type of Study TTE procedure:Echo Complete-(Doppler, Colorflow) with Contrast. Procedure Information:Definity was administered by Antonietta Leon RDCS. Study Date12/17/2022 Start Time: 11:17 AM Study Location: [facility] Adult Echo Study Status: Echo lab Patient Status: STAT Technical Quality: Technically difficult due to obesity. Blood Pressure:115/63 mmHg EKG: Normal sinus rhythm HR: 64 bpm Contrast Medium: Definity. Amount - 2 ml 2D Measurements LV Diastolic Dimension: 5.6 cm LV Systolic Dimension: 5 cm LV Septum Diastolic: 1.66 cm LV PW Diastolic: 1.7 cm AO Root Dimension: 3 cm LA ESV (BP):44.3 ml LVOT Stroke Volume: 35.8 ml LA ESV Index: 18 ml/m2 Stroke Volume Index14.55 ml/m2 LVOT: 2 cm Cardiac Index:0.93 l/min/m2 Ascending Aorta:2.8 cm Doppler Measurements AV Peak Velocity: 122 cm/s MV Peak E-Wave: 53.1 cm/s AV Peak Gradient: 5.95 mmHg MV Peak A-Wave: 45 cm/s MV E/A Ratio: 1.18 LVOT Peak Velocity: 77.1 cm/s LVOT VTI11.4 cm MV Deceleration Time: 197 msec E' Septal Velocity: 5.55 cm/s PV Peak Velocity: 149 cm/s E' Lateral Velocity: 4.46 cm/s PV Peak Gradient: 8.88 mmHg E/Med E':[id number] E/Lat E':11.26295 Cardiac Anatomy Left Ventricle/Interventricular Septum The left ventricle is mildly dilated. There is moderate concentric left ventricular hypertrophy. The LV systolic function is severely reduced. The left ventricular ejection fraction is 15-20 %. There is severe global hypokinesis with regional variation. 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 There is poor endocardial border definition despite the use of Definity, overall basal segments appear to have better function than mid and distal segments. There is no evidence of left ventricular thrombus. Left Atrium/Interatrial Septum The left atrium is poorly visualized. Aortic Valve The aortic valve is poorly visualized. There is no aortic valve stenosis or insufficiency. Mitral Valve The mitral valve is poorly visualized. There is no significant mitral valve regurgitation. Aorta The ascending aorta and aortic root are normal in size. Right Ventricle The right ventricle is poorly visualized. Right Atrium The right atrium is poorly visualized. Pulmonic Valve The pulmonic valve is poorly visualized. The pulmonic valve is functionally normal. Tricuspid Valve The tricuspid valve is poorly visualized. Pumonary Artery An accurate pulmonary artery pressure could not be obtained. Venous Structures The inferior vena cava is poorly visualized. Pericardium/Extracardiac There is no significant pericardial effusion. Summary - The left ventricle is mildly dilated. There is moderate concentric left ventricular hypertrophy. The LV systolic function is severely reduced. The left ventricular ejection fraction is 15-20 %. There is severe global hypokinesis with regional variation. 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 There is poor endocardial border definition despite the use of Definity, overall basal segments appear to have better function than mid and distal segments. There is no evidence of left ventricular thrombus. -The right ventricle is poorly visualized. -No significant valvular abnormalities. - No pericardial effusion. Comparison Comparison is made to the study of November 18, 2022. There is no significant change. Signature * Event Display: Echocardiogram - Complete Authored Date: Cardiology * Event Display: VL Ankle/Brachial Indices Authored Date: Demographics Procedure Information Patient name: KYLAH THOMPSON Procedure date: 12/17/2022 11:51 AM Corporate Proc. sub type: Extremities Arteries: Lower Arterial Plethysmography, PVR Limited Single Gender: Male Level. Date of : 1970 Accession No: [id number] Age: 52 year(s) Account No: [id number] Patient status: Routine Procedure Staff Admit Status: Inpatient Ordering physician: Sandip WILLIAM Facility: [facility] Referring Physician: Sandip WILLIAM Study location: [facility] Vascular Lab Admitting Physician: OSVALDO Martinez Procedure consent obtained: Attending Physician: Jodee Hernandez MD No Camera Repairer: Hubert Avery RVT [facility] Chris De Leon RVT Interpreting physician: Annalisa Salas MD Indications Rest pain and Ulcer/gangrene. Lower Extremity Findings Right Left Location Pressure (mmHg) Ratio Pressure (mmHg) Ratio Brachial 107 93 DRYWALL STRIPPER HELPER 129 1.21 DPA 132 1.23 Right STEPHANY: 1.21 Left STEPHANY: 1.23 Study Comments REFERENCE ?? Ankle / Brachial Indices: Normal= 1-1.3, Mild disease= 0.8-0.99, Moderate blockage =0.4 to 0.79,Severe disease= less than 0.4, Rigid arteries = >1.3 ?? Toe/ Brachial Indices: Normal= >.7, Abnormal= <.69 Physician Conclusions Summary: The Ankle / Brachial Index on the right is 1.21. The Ankle / Brachial Index on the left is 1.23. Normal arterial flow to the ankles bilaterally at rest. Exam was limited due to patient cooperation and wound dressing placement. Toe pressures and tracings unable to be obtained. There is no prior exam available for comparison. Snapshots * Event Display: VL Ankle/Brachial Indices Authored Date: * Event Display: Cardiac Rhythm Strips Authored Date: Hospital Progress note * Felicia Arthur RN: PERFORM, SIGN, VERIFY Event Display: Progress Note Hospital Authored Date: Patient: BENNY MONTERO Age: 52 years Sex: Male : 1970 Associated Diagnoses: None Author: Felicia Arthur RN Findings Evaluation Patient is alert and oriented x4, able to communicate needs. patient report 8/10 pain, medicated with PO and IV Dilaudid per JUN. Wound care completed per order. After lunch pt requested to go outside with family, however there were no available staff to accompany pt outside, as pt is not allow to go outside alone, due to previous history of suspected illicit substance use during hospitalization.Patient decided to leave AMA. . Discharge Information Rehabilitation Discharge : Rehab Discharge Index 12/17/2022 10:27 EDT Comments on treatment indicated 52yo M with extensive PMHx presents c chest pressure, SOB. Previous dx of PE, heart failure exac, and bilat foot wounds. Found to have Left zone 2 5th met fx - non-operative. NWB LLE per ortho note. PT for transfes, ambulation. Rec home c PT services. Full chart review completed Yes Hospital course Recently admitted at [facility] in end of October where he was managed for heart failure exacerbation and was found to have DVT. Since discharge she has been diagnosed with PE at some hospital in [place], records not available Other findings Per comment: Plan of care PT Gait training, Transfer training, Therapeutic exercise, Functional Activities, Balance training, Neuromuscular education * Joe ROGERS, Priya Martinez: PERFORM Event Display: Progress Note Hospital Authored Date: [id number] Patient: ??TAKOTNA, BENNY ? Age:??52 Years?Sex:??Male?:??1970?? Subjective Patient seen and examined bedside on [place] [address]. No acute events overnight. Patient denies complaints of pain to bilateral feet. States he only has discomfort when he attempts to walk. Denies restpain. Denies chest pain, shortness of breath, fever/chills. Tolerating PO intake without issue. Review of Systems 12 point ROS completed. Negative unless otherwise stated in HPI/subjective. Physical Exam Vitals & Measurements T:??97.5?F?? HR:??68??(Peripheral)?? RR:??18?? BP:??120/73?? SpO2:??98%?? HT:??180??cm?? WT:??156.9??kg?? BMI:??48.43?? General appearance: No apparent distress, appears stated age, well developed. Head: Normocephalic, atraumatic. Cardiac: RRR, no murmurs or gallops. Respiratory: Clear to auscultation bilaterally. Abdomen: Soft, nontender, nondistended. No guarding or rebound. No palpable mass. Incisions/Dressings: aquacel between R4/5 bilaterally Extremities: Able to move all extremities without difficulty. Warm and well perfused. Neurologic status: Alert and oriented x 3. No focal deficits. Psych: Mood and affect normal. Vascular:??baseline bilateral neuropathy, motor intact, can feel pressure??only. ?? Right: Palp AT/DP, TP PT, no rubor or erythema?? present, R1, R4/5 with superficial shallow ulcerations at the site of popped blisters Left: Palp AT/DP, TP PT, no rubor or erythema present, L1, L4/5 with superficial shallow ulcerations at the site of the popped blisters Assessment/Plan Benny Montero??is a 52-year-old male , homelessness, non-compliant, with past medical history of ischemic cardiomyopathy??with reduced EF 20 to 25% on most recent echo, was 10 to 15% prior??CAD s/p??PTCA,??morbid obesity,??IONA- ??noncompliant with??CPAP,??polysubstance abuse,??hypertension,??prediabetes, CKD,??depression/anxiety, PTSD,??had multiple hospitalization at [facility] for shortness of breath/CHF exacerbation, recently diagnosed but non compliant with medications. Vascular Surgery consulted for evaluation of wounds on bilateral feet. Patient??with ill fitting shoes recently purchased and now has popped blisters bilaterally on the first, fourth and fifth toes. He has palpable pulses, ABIs are normal, and he has no radiographic evidence of osteomyelitis. He will benefit from local wound care, better fitting shoes, and med compliance. There is no role for vascular surgery at this time, we will sign off. ?? Recommendations: - diabetic diet; tight glucose control - wound care consult for local wound care of bilateral toes - remainder of care per primary team ?? Please page Vascular [place] [phone]. ?? 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 Intake and Output Intake and Output Results?? This visit (24 hour periods starting at 07:00 EDT)? 12/20/22 *?? 12/19/22?? 12/18/22?? Total Summary?Intake mL?? --?? 2,088?? 1,832?Output mL?? --?? 2,575?? 4,950?Fluid Balance ?? --?? -487?? -3,118?? Intake (2)?Oral Fluids mL?? --?? 2,088?? 832?Vancomycin mL?? --?? --?? 1,000?Total?? --?? 2,088?? 1,832?? Output (1)?Urine Voided mL?? --?? 2,575?? 4,950?Total?? --?? 2,575?? 4,950?? Counts (2)?Oral Fluids mL?? --?? 2,088?? 832?Urine Voided mL?? --?? 2,575?? 4,950? * This column has not completed the indicated time period.?? Labs Last 24 Hours BLOOD COUNT & DIFF ? Event Name?? Event Result?? Date/Time?? WBC 10.3 k/mm3 12/20/22 00:01:00 RBC 4.51 m/mm3??Low 12/20/22 00:01:00 Hgb 13.4 Gm/dL??Low 12/20/22 00:01:00 Hct 42.4 % 12/20/22 00:01:00 MCV 94 femtoliters 12/20/22 00:01:00 MCH 29.7 pg 12/20/22 00:01:00 MCHC 31.6 g/dL??Low 12/20/22 00:01:00 Platelet Count 329 k/mm3 12/20/22 00:01:00 MPV 9.8 femtoliters 12/20/22 00:01:00 Nucleated RBC (Automated) 0 #/100 WBC'S 12/20/22 00:01:00 ? CHEM GENERAL ? Event Name?? Event Result?? Date/Time?? Sodium 139 mmol/L 12/20/22 00:01:00 Chloride 92 mmol/L??Low 12/20/22 00:01:00 Bicarbonate Level 32 mmol/L??High 12/20/22 00:01:00 Anion Gap 15 12/20/22 00:01:00 Glucose Level 117 mg/dL??High 12/20/22 00:01:00 BUN 29 mg/dL??High 12/20/22 00:01:00 Creatinine-Blood 1.3 mg/dL??High 12/20/22 00:01:00 ? * Patsy SANDERSON, Dwaine: VERIFY, PERFORM, SIGN Event Display: Progress Note Hospital Authored Date: Patient: BENNY MONTERO Age: 52 years Sex: Male : 1970 Associated Diagnoses: None Author: Dwaine Garner RN Findings Problem Related to Alteration in Musculoskeletal : Alteration in Musculoskeletal Func/new 12/19/2022 16:00 EDT Alteration in Musculoskeletal Related to Mobility Goals & Outcomes, Musculoskeletal Pt able to perform ADL's to best of ability, Pt will be free from complications of immobility Interventions, Musculoskeletal monitor Color/Motion/Sensation BH Goals/Interventions, Musculoskeletal Yes Musculoskeletal, Problem Start 12/18/2022 17:05 Reviewed Plan with, Musculoskeletal Patient Patient Progression, Musculoskeletal Plan Initiation . Narrative/Incidental Pt alert and oriented x4. Medicated per MAR. Complains of BL foot pain. Given prn dilaudid IV and PO ATC with good effect. Dopplers completed. Wound dressing changed per orders. Continues on IV abx. Pt left unit without notiifying staff, pt educated about this incident. Pt was found to have marijuiana buds and pen at bedside, pt educated and items taken to nurses station. Pt aware he can get them back on dischage. . Discharge Information Rehabilitation Discharge : Rehab Discharge Index 12/17/2022 10:27 EDT Comments on treatment indicated 52yo M with extensive PMHx presents c chest pressure, SOB. Previous dx of PE, heart failure exac, and bilat foot wounds. Found to have Left zone 2 5th met fx - non-operative. NWB LLE per ortho note. PT for transfes, ambulation. Rec home c PT services. Full chart review completed Yes Hospital course Recently admitted at [facility] in end of October where he was managed for heart failure exacerbation and was found to have DVT. Since discharge she has been diagnosed with PE at some hospital in [place], records not available Other findings Per comment: Plan of care PT Gait training, Transfer training, Therapeutic exercise, Functional Activities, Balance training, Neuromuscular education Consult note * Lamine TORRES, Alexis Martinez: PERFORM Event Display: Consultation Note Authored Date: [id number] Patient: ??BENNY MONTERO ? Age:??52 Years?Sex:??Male?:??1970?? History of Present Illness 52yo M with h/o ischemic cardiomyopathy??with reduced EF 20 to 25% on most recent echo, was 10 to 15% prior to that,??CAD s/p??PTCA,??morbid obesity,??IONA,??noncompliant with??CPAP,??polysubstance abu se,??hypertension,??prediabetes, CKD,??depression/anxiety, PTSD, bilateral foot drop, prepatellar bursa effusion, previously known to this service with multiple admissions presented to the ED most recently c/o chest pain and SOB. He was found to have a PE. [facility] [place] [facility] [place] but reportedly he did not fill his Rx for Eliquis which was resumed this admission. Pt has known h/o bilateral foot drop concerning for peripheral neuropathy and was evaluated by our service in August of this year. We recommended EMG as an outpatient but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
--- OUTSIDE RECORDS SUMMARY | 2023-01-20 23:57 | XMS_ITS | Continuity of Care Document ---
Author Name Unknown Organization [facility] Address [address] [place] [address]- Care Team Providers Care Library Clerical Assistant Name Role Phone [place] TORRES, Preet Hall Primary Care Physician [phone] [facility] Date(s): 08/25/21 - 08/27/[address] [id number] Discharge Disposition: A-D/C Home Attending Physician: Constantine TORRES, Bertrand Charlton Admitting Physician: Jerrod Edwards MD Referring Physician: Not on Staff, Referring [...] oral tablet 6.25 mg, Tablet, By Mouth, 08/27/21 9:00:00 EDT Start Date: 08/27/21 Stop Date: 08/27/21 Status: Completed carvedilol 6.25 mg oral tablet [...] Refills, Maintenance, 06/09/21 12:34:00 EST, Tablet, [facility], Partial fill upon patient [...] 0 Refills, Maintenance, 06/09/21 12:34:00 EST, Cream, [facility], Partial fill upon patient [...] 11:03:00 EDT, Aerosol, Route to Pharmacy Electronically, [id number]... Start Date: 07/29/21 Status: Ordered torsemide 20 [...] consistent with a cyst on CT at [facility] 04/2019(Confirmed) 04/2019 Active Coronary artery [...] class I(Confirmed) Active Obstructive sleep apnea(Confirmed) Active .Housecalls Nurse: Zoltan Diaz [phone], [facility]. CPP(Confirmed) Active Post traumatic stress disord er (PTSD)(Confirmed) 1999 Active 1-Seen in CT scan of the abdomen done at [facility] on 08-08-16 Results Orders for Microbiology Reports Name Date Blood Culture #2 08/26/21 Blood Culture 08/26/21 Blood Culture 08/25/21 Blood Culture #2 08/25/21 Microbiology Reports TEST:Blood Culture STATUS:Unauthenticated BODY SITE: SOURCE:Blood COLLECTED DATE/TIME:08/26/21 11:56 AM Blood Culture SPECIMEN DESCRIPTION : BLOOD L ARM SPECIAL REQUESTS : NONE CULTURE : NO GROWTH AFTER 24 HOURS REPORT STATUS : PRELIMINARY REPORT TEST:Blood Culture, Second Order STATUS:Unauthenticated BODY SITE: SOURCE:Blood COLLECTED DATE/TIME:08/26/21 11:56 AM Blood Culture, Second Order SPECIMEN DESCRIPTION : BLOOD R ARM SPECIAL REQUESTS : NONE CULTURE : NO GROWTH AFTER 24 HOURS REPORT STATUS : PRELIMINARY REPORT TEST:Blood Culture STATUS:Unauthenticated BODY SITE: SOURCE:Blood COLLECTED DATE/TIME:08/25/21 9:58 AM Blood Culture SPECIMEN DESCRIPTION : BLOOD NO SITE SPECIAL REQUESTS : NONE CULTURE : NO GROWTH AFTER 48 HOURS REPORT STATUS : PRELIMINARY REPORT TEST:Blood Culture, Second Order STATUS:Auth (Verified) BODY SITE: SOURCE:Blood COLLECTED DATE/TIME:08/25/21 9:58 AM Blood Culture, Second Order SPECIMEN DESCRIPTION : BLOOD NO SITE SPECIAL REQUESTS : CRITICAL VALUE CALLED AND VERIFIED BY READBACK FOR: GRAM POSITIVE COCCI TO [id number], M5, 08/26/21 0532, BY TECH [id number] CULTURE : STAPH. SPECIES, NOT STAPH. AUREUS SUSCEPTIBILITY TESTING NOT ROUTINELY PERFORMED ON THIS ISOLATE. Single isolates of Staph. species, not Staph. aureus, Micrococci, Bacillus species, Diphtheroids, Cutibacterium acnes (formerly Propionibacterium acnes) and Viridans Group Streptococci could be skin contaminants. Multiple isolates of these organisms are more likely to be significant. Staphylococcus species (not S. aureus) was identified by multi-plex PCR REPORT STATUS : FINAL 08/27/2021 Radiology Reports * Exam Date Time Procedure Performing Provider Status 08/25/21 3:55 AM Chest Portable Lila Estrella; Auth (Verified) Notes: (Chest Portable) Reason For Exam: Shortness of Breath RESULT: Chest Portable Chest Portable INDICATION: Dyspnea. COMPARISON: Multiple priors, the most recent 08/12/2021. FINDINGS: LINES AND TUBES: None. LUNGS AND PLEURA: Stable diffuse retrocardiac opacity and intralobular opacity in the medial right lung base representing a combination of cardiomegaly and prominent epicardial fat when correlated with prior CT. This may obscure an acute process at the left lung base. Lungs are otherwise clear without micky pulmonary edema. No right- sided effusion. No pneumothorax. HEART, MEDIASTINUM AND CAROLA: Moderate prominence of the cardiac silhouette, unchanged. Normal upper mediastinal and hilar contour. BONES AND SOFT TISSUES: No acute abnormality. IMPRESSION: No definite acute process. Chronic cardiomegaly and prominent pericardial fat, which may obscure a left basilar abnormality. I have personally reviewed the images and I agree with this report. WSN: [id number] Ordering Physician: Toby Larkin Dictated By: Aramis[Radiology] Tate TORRES Dictated Date/Time: 08/25/21 9:04 am Reviewed By: Preet Diaz MD Signed By: Preet Diaz MD Signed Date/Time: 08/25/21 9:09 am Transcribed By: SHANNA Transcribed Date/Time: 08/25/21 8:29 am Vital Signs Most recent to oldest [Reference Range]: 1 2 3 Height 180 cm (08/26/21 12:40 PM) 180 cm (08/25/21 5:14 PM) 180 cm (08/25/21 8:24 AM) Weight 175.8 kg (08/27/21 4:00 AM) 175.7 kg (08/26/21 12:40 PM) 175.7 kg (08/25/21 6:22 AM) Oxygen Saturation [94-100 %] 96 % (08/27/21 2:00 PM) 98 % (08/27/21 1:00 PM) 92 % *L* (08/27/21 12:00 PM) Pulse Rate [55-90 bpm] 69 bpm (08/27/21 8:42 AM) 66 bpm (08/27/21 4:00 AM) 58 bpm (08/27/21 12:00 AM) Body Mass Index [18.5-24.99] 54.23 *>HHI* (08/25/21 6:22 AM) Blood Pressure [90-138/55-84 mm Hg] 115/56mm Hg (08/27/21 1:00 PM) 119/69mm Hg (08/27/21 12:00 PM) 129/86mm Hg (08/27/21 9:00 AM) Respiratory Rate [16-30 br/min] 15 br/min *L* (08/27/21 2:00 PM) 15 br/min *L* (08/27/21 1:00 PM) 13 br/min *L* (08/27/21 12:00 PM) Temperature [96.8-100.4 DegF] 98.2 DegF (08/27/21 8:00 AM) 98.6 DegF (08/27/21 4:00 AM) 98 DegF (08/27/21 12:00 AM) Liters per Minute 6 L/min (08/26/21 8:00 PM) 6 L/min (08/26/21 6:00 PM) 6 L/min (08/26/21 5:00 PM) Mode of Delivery (Oxygen) Room air (08/27/21 2:00 PM) Room air (08/27/21 1:00 PM) Room air (08/27/21 12:00 PM) Blood pressure sites Arm, right (08/27/21 9:00 AM) Arm, right (08/27/21 8:00 AM) Arm, right (08/27/21 4:00 AM) Temperature Route Oral (08/27/21 8:00 AM) Oral (08/27/21 4:00 AM) Axillary (08/27/21 12:00 AM) Dry Weight 175.7 kg (08/25/21 6:22 AM) Social History Social History Type Response Smoking Status 10 or more cigarette s (1/2 pack or more)/day in last 30 days; Interested in cessation: No; Patient wants NRT during admission No entered on: 06/03/21 Sex
--- OUTSIDE RECORDS SUMMARY | 2023-01-20 23:57 | XMS_ITS | Continuity of Care Document ---
Author Name Unknown Organization [facility] Address [address] [place] [address]- Care Team Providers Care Final Cleaner Name Role Phone Preet Sofia MD Primary Care Physician Encounter [facility] Date(s): 12/09/22 - 01/08/23 [facility]/[address] [address]- [place] Allergies, Adverse Reactions, Alerts No Known [...] 12/22/22 14:14:00 EDT, Route to Pharmacy Electronically, [facility]/pharmacy #[id number], 178, cm, 11/22/22 18:01:00 EDT, Height, 164.9, kg, 11/18/22 18:49:00 EDT, Start Date: 12/22/22 Status: Ordered Dilaudid 2 mg oral tablet See Instructions, PRN Pain , Severe, 1 tablet By Mouth every 4 hours up to 3x/day during daytime asneeded for severe pain. 7 day or more supply., # 21 tablet, 0 Refills, Maintenance, 01/05/23 20:48:00 EDT, Tablet, [facility]/pharmacy #[id number], Partial fill upo... Start Date: 01/05/23 Status: Ordered duloxetine 30 mg oral enteric coated capsule 1 capsule = 30 mg, By Mouth, Daily at bedtime, # 30 capsule, 5 Refills, Maintenance, 01/21/23 14:06:00 EDT, Capsule, [facility]/pharmacy #[id number], Partial fill upon [...] 0 Refills, Maintenance, 06/09/21 12:34:00 EST, Tablet, [facility], Partial fill upon [...] 14:06:00 EDT, Aerosol, Route to Pharmacy Electronically, [id number]... Start Date: 11/22/22 Status: Ordered torsemide 20 mg oral tablet 1 tablet = 20 mg, By Mouth, 2 times a day, # 60 tablet, 5 Refills, Maintenance, 12/22/22 14:08:00 EDT, Tablet, [id number], 178, cm, 11/22/22 18:01:00 EDT, Height, 164.9, kg, 11/18/22 18:49:00EDT, Dry Weight Start Date: 12/22/22 Stop Date: 06/20/23 Status: Ordered Wheelchair See Instructions, # 1 Unknown, Maintenance, wheel chair needed for chronic foot wound and gait instability as deemed by physical therapy in hospital. Bariatric size., 01/05/23 20:44:00 EDT, Supply Start Date: 01/05/23 Status: Ordered Wheelchair See Instructions, # 1 [...] consistent with a cyst on CT at [facility] 04/2019 Confirmed 04/2019 Active Coronary [...] Confirmed Active Obstructive sleep apnea Confirmed Active .Television Production Clerk: Lucita Segal [phone], [facility], [facility]. CPP Confirmed Active Post traumatic stress disorder (PTSD) Confirmed 2000 Active Pulmonary embolus most branches of R lung, Dx at [place], [place] on 11/28/22. L popliteal & peroneal DVT 11/18/22 Confirmed Active Severe obesity Confirmed Active 1-Seen in CT scan of the abdomen done at [facility] on 08-08-16 Social History Social History Type Response Smoking Status 10 or more cigarette s (1/2 pack or more)/day in last 30 days; Interested in cessation: No; Patient wants NRT during admission No entered on: 06/03/21 Sex Male Patient Care team information Care Team Personnel Name: Brenda Vanegas RN Position: [facility] RN Member Role: Primary Care Nurse Name: Renae Rashid RN Position: [facility] RN Member Role: Primary Care Nurse Name: Lizbeth Reardon RN Position: [facility] RN Member Role: Primary Care Nurse Name: Brittny Griffin RN Position: [facility] RN Member Role: Primary Care Nurse Name: Rickey Cruz RN Position: [facility] RN Member Role: Primary Care Nurse Name: Brandee Bee RN Position: [facility] RN Member Role: Primary Care Nurse Name: Janie Gamez RN Position: [facility] RN Member Role: Primary Care Nurse Name: Toby Trotter RN Position: [facility] RN Dom Member Role: Primary Care Nurse Name: Jing Santiago RN Position: [facility] RN Member Role: Primary Care Nurse Name: Sven Bustos RN Position: [facility] RN Member Role: Primary Care Nurse Name: Sharron Schaefer RN Position: [facility] RN Member Role: Primary Care Nurse Name: Franca Luis LPN Position: S RN Member Role: Primary Care Nurse Name: Sheryl Linda RN Position: [facility] RN Member Role: Primary Care Nurse Name: Zara Aldridge RN Position: [facility] RN Member Role: Primary Care Nurse Name: Preet Sofia MD Position: [facility] Physician - Primary Care Member Role: PCP Address: Address: [address] [place] [address] Name: Nanci Roman Position: S RN Member Role: Primary Care Nurse Name: Betsey Harvey RN Position: [facility] RN Member Role: Primary Care Nurse Name: Camila Cervantes RN Position: [facility] RN Member Role: Primary Care Nurse Name: Aruna Warren RN Position: [facility] RN Member Role: Primary Care Nurse Name: Naomi Kyle RN Position: [facility] RN Member Role: Primary Care Nurse Name: Pavan Espinoza RN Position: [facility] RN Member Role: Primary Care Nurse Name: Lynne Shah RN Position: [facility] RN Member Role: Primary Care Nurse Name: Ashwini Larson RN Position: [facility] SN RN Member Role: Primary Care Nurse Name: Lorraine Good RN Position: [facility] RN Member Role: Primary Care Nurse Name: Mohan Quijano RN Position: [facility] RN Member Role: Primary Care Nurse Name: Shaina Nagy RN Position: [facility] RN Member Role: Primary Care Nurse Name: Sarah Gordon RN Position: [facility] Onco RN Member Role: Primary Care Nurse Name: Catalina Cook RN Position: [facility] RN Member Role: Primary Care Nurse Name: Yun Wadsworth RN Position: [facility] RN Member Role: Primary Care Nurse Name: Sweta Lang RN Position: [facility] RN Member Role: Primary Care Nurse Name: Kely Morton RN Position: [facility] RN Member Role: Primary Care Nurse Care Team Related Persons Name: ANA MARIA DIAN Address: [place] [address] Name: KT LANDEROS Address: [place] [address] Name: TAE QUIROZ Address: [place] [id number]
--- OUTSIDE RECORDS SUMMARY | 2023-01-20 23:57 | XMS_ITS | Continuity of Care Document ---
Author Name Unknown Organization [facility] Address Unknown Care Team Providers Care Social Human Services Assistants Name Role Phone Preet Sofia MD Primary Care Physician [facility]counter [facility] Date(s): 02/23/21 - 03/25/21 [facility] Allergies, Adverse Reactions, Alerts Substance Reaction Severity [...] Not Given Patient Refuses 1Location History: [facility] 2Location History: [facility] 3Location History: [facility] 4Location History: [facility] Medications aspirin 81 mg oral [...] consistent with a cyst on CT at [facility] 04/2019(Confirmed) 04/2019 Active Coronary artery [...] Morbid obesity(Confirmed) Active Obstructive sleep apnea(Confirmed) Active .Mobile Lab Technician: Zoltan Diaz [phone], Formerly [facility]. CPP(Confirmed) Active Post traumatic stress disord er (PTSD)(Confirmed) 1999 Active 1-Seen in CT scan of the abdomen done at [facility] on 08-08-16 Social History Social History Type Response Smoking Status 10 or more cigarette s (1/2 pack or more)/day in last 30 days; Other: [id number]; entered on: 09/03/20 Sex
--- OUTSIDE RECORDS SUMMARY | 2023-01-20 23:57 | XMS_ITS | Continuity of Care Document ---
Author Name Unknown Organization [facility] Address [address] [place] [address]- Care Team Providers Care Petroleum Engineer Name Role Phone Preet Sofia MD Primary Care Physician Encounter [facility] Date(s): 09/01/20 - 10/03/20 [facility] [address] [address]- Attending Physician: Preet Sofia MD Admitting Physician: [...] 03/28/20 Not Given Patient Refuses 1[facility] 2[facility] 3Location History: [facility] 4Location History: [facility] Medications acetaminophen 325 mg oral tablet 650 mg, 2, tablet, By Mouth, Every 6 hours, PRN, for 30 days, # 50 tablet, Refills 0, Tot. Refills 0, Acute 10/21/20 13:24:00 EDT, Pain , Moderate, 09/21/20 13:24:00 EDT, Route to Pharmacy Electronically, [facility], Partial fill upon pa... Start [...] Maintenance, 09/03/20 20:10:00 EDT,Route to Pharmacy Electronically, [facility], 180, cm, 09/03/20 9:24:00 EDT, Height, 172.7, kg, 08/28/20 4:44:00 EDT, Dry Weight Start Date: 09/03/20 Status: Ordered atorvastatin 40 mg oral tablet 1 tablet = 40 mg, By Mouth, Daily at bedtime, # 90 tablet, 4 Refills, Maintenance, 09/03/20 20:11:00 EDT, Tablet, [facility], 180, cm, 09/03/20 9:24:00 EDT, Height, 172.7, kg, 08/28/20 4:44:00 EDT, Dry Weight Start Date: 09/03/20 Status: Ordered carvedilol 3.125 mg oral tablet 3.125 mg, 1, tablet, By Mouth, 2 times a day, # 180 tablet, Refills 0, Tot. Refills 0, Maintenance,09/21/20 13:23:00 EDT, Route to Pharmacy Electronically, [facility], Partial fill upon patient request if the prescription is for a sched... Start Date: 09/21/20 Status: Ordered clopidogrel 75 mg oral tablet 75 mg, 1, tablet, By Mouth, Daily, # 90 tablet, Refills 3, Tot. Refills 3, Hard Stop 01/17/22 16:10:00 EDT, 01/22/21 16:10:00 EDT, Route to Pharmacy Electronically, [facility]/pharmacy #[id number], home delivery please, 180, cm, 04/08/20 13:32:00 EST, Height, 181.... Start Date: 01/22/21 Stop Date: 01/17/22 Status: Ordered Entresto 24 mg-26 mg oral tablet 1 tablet, By Mouth, 2 times a day, # 180 tablet, 0 Refills, Maintenance, 09/21/20 13:24:00 EDT, Tablet, [facility] 3, Partial fill upon patient request if the prescription is for a schedule II opioid drug., 1 tablet By Mouth 2 times a day,... Start Date: 09/21/20 Status: Ordered FLUoxetine 20 mg oral capsule 20 mg, 1, capsule, By Mouth, Daily, # 90 capsule, Refills 4, Tot. Refills 4, Maintenance, 09/03/20 20:09:00 EDT, Route to Pharmacy Electronically, [facility], [place] [facility], 180, cm, 09/03/20 9:24:00 EDT, Height, 172.7, kg, ... Start Date: 09/03/20 Status: Ordered levothyroxine 0.05 mg oral tablet 1 tablet = 50 mcg, By Mouth, Daily, # 90 tablet, 4 Refills, Maintenance, 06/26/20 17:25:00 EST, Tablet, [facility], [place] [facility], 180, cm, 06/26/20 14:13:00 EST, Height, [...] 09/03/20 20:09:00 EDT, Route to Pharmacy Electronically, [facility], 180, cm, 09/03/20 9:24:00 EDT, Height, 172.7, [...] 09/21/20 13:24:00 EDT, Route to Pharmacy Electronically, [facility] Tablet, Partial... Start Date: 09/21/20 Stop Date: 10/21/20 Status: Ordered spironolactone 25 mg oral tablet 25 mg, 1, tablet, By Mouth, Daily, # 90 tablet, Refills 3, Tot. Refills 3, Maintenance, 06/26/20 17:25:00 EST, Route to Pharmacy Electronically, [facility], home delivery, 180, cm, 06/26/20 14:13:00 EST, Height, 181.6, kg, 03/27/20... Start Date: 06/26/20 Status: Ordered torsemide 20 mg oral tablet 1 tablet = 20 mg, By Mouth, Daily, # 90 tablet, 0 Refills, Maintenance, 09/21/20 13:23:00 EDT, Tablet, [facility], Partial fill upon patient request [...] consistent with a cyst on CT at [facility] 04/2019(Confirmed) 04/2019 Active Coronary artery [...] Morbid obesity(Confirmed) Active Obstructive sleep apnea(Confirmed) Active .Yard Spotter: Zoltan Diaz [phone], [facility]. CPP(Confirmed) Active Post traumatic stress disord er (PTSD)(Confirmed) 1999 Active 1-Seen in CT scan of the abdomen done at [facility] on 08-08-16 Vital Signs Most recent to oldest [Reference Range]: 1 Height 180 cm (09/03/20 9:24 AM) Social History Social History Type Response Smoking Status 10 or more cigarette s (1/2 pack or more)/day in last 30 days; Other: [id number]; entered on: 09/03/20 Sex
--- OUTSIDE RECORDS SUMMARY | 2023-01-20 23:57 | XMS_ITS | Continuity of Care Document ---
Author Name Unknown Organization [facility] Address [address] [place] [address]- Care Team Providers Care Inspector Outside Steam Distribution Name Role Phone Preet Sofia MD Primary Care Physician [phone] Encounter [facility] Date(s): 08/27/20 - 11/07/20 [facility] [address] [address] Attending Physician: Preet Sofia MD Admitting Physician: Preet Sofia MD Referring Physician: Preet Sofia MD Allergies, [...] History: [facility] 3Location History: [facility] 4Location History: [facility] Medications aspirin 81 mg oral delayed release tablet 81 mg, By Mouth, Daily, # 90 tablet, Refills 4, Tot. Refills 4, Maintenance, 09/03/20 20:10:00 EDT,Route to Pharmacy Electronically, [facility], 180, cm, 09/03/20 9:24:00 EDT, Height, 172.7, kg, 08/28/20 4:44:00 EDT, Dry Weight Start Date: 09/03/20 Status: Ordered atorvastatin 40 mg oral tablet 1 tablet = 40 mg, By Mouth, Daily at bedtime, # 90 tablet, 4 Refills, Maintenance, 09/03/20 20:11:00 EDT, Tablet, [facility], 180, cm, 09/03/20 9:24:00 EDT, Height, 172.7, kg, 08/28/20 4:44:00 EDT, Dry Weight Start Date: 09/03/20 Status: Ordered carvedilol 3.125 mg oral tablet 3.125 mg, 1, tablet, By Mouth, 2 times a day, # 180 tablet, Refills 0, Tot. Refills 0, Maintenance,09/21/20 13:23:00 EDT, Route to Pharmacy Electronically, [facility] 3, Partial fill upon patient request if the prescription is for a sched... Start Date: 09/21/20 Status: Ordered clopidogrel 75 mg oral tablet 75 mg, 1, tablet, By Mouth, Daily, # 90 tablet, Refills 3, Tot. Refills 3, Hard Stop 01/17/22 16:10:00 EDT, 01/22/21 16:10:00 EDT, [id number], 180, cm, 04/08/20 13:32:00 EST, Height, 181.... Start Date: 01/22/21 Stop Date: 01/17/22 Status: Ordered Entresto 24 mg-26 mg oral tablet 1 tablet, By Mouth, 2 times a day, # 180 tablet, 0 Refills, Maintenance, 09/21/20 13:24:00 EDT, Tablet, [facility] 3, Partial fill upon patient request if the prescription is for a schedule II opioid drug., 1 tablet By Mouth 2 times a day,... Start Date: 09/21/20 Status: Ordered FLUoxetine 20 mg oral capsule 20 mg, 1, capsule, By Mouth, Daily, # 90 capsule, Refills 4, Tot. Refills 4, Maintenance, 09/03/20 20:09:00 EDT, Route to Pharmacy Electronically, [facility], home delivery, 180, cm, 09/03/20 9:24:00 EDT, Height, 172.7, kg, ... Start Date: 09/03/20 Status: Ordered levothyroxine 0.05 mg oral tablet 1 tablet = 50 mcg, By Mouth, Daily, # 90 tablet, 4 Refills, Maintenance, 06/26/20 17:25:00 EST, Tablet, [facility], home delivery, 180, cm, 06/26/20 14:13:00 EST, Height, 181.6, kg, 03/27/20 14:58:00 EST, Dry Weight Start Date: 06/26/20 Status: Ordered nortriptyline 10 mg oral capsule 10 mg, 1, capsule, By Mouth, Daily, # 90 capsule, Refills 3, Tot. Refills 3, Maintenance, 09/03/20 20:09:00 EDT, Route to Pharmacy Electronically, [facility], 180, cm, 09/03/20 9:24:00 EDT, Height, [...] 06/26/20 17:25:00 EST, Route to Pharmacy Electronically, [facility], home delivery, 180, cm, 06/26/20 14:13:00 EST, Height, 181.6, kg, 03/27/20... Start Date: 06/26/20 Status: Ordered torsemide 20 mg oral tablet 1 tablet = 20 mg, By Mouth, Daily, # 90 tablet, 0 Refills, Maintenance, 09/21/20 13:23:00 EDT, Tablet, [facility] 3, Partial fill upon patient request if [...] consistent with a cyst on CT at [facility] 04/2019(Confirmed) 04/2019 Active Coronary artery [...] Morbid obesity(Confirmed) Active Obstructive sleep apnea(Confirmed) Active .Software Maintenance Engineer: Zoltan Diaz [phone], Formerly [facility], [facility]. CPP(Confirmed) Active Post traumatic stress disord er (PTSD)(Confirmed) 1999 Active 1-Seen in CT scan of the abdomen done at [facility] on 08-08-16 Social History Social History Type Response Smoking Status 10 or more cigarette s (1/2 pack or more)/day in last 30 days; Other: [id number]; entered on: 09/03/20 Sex
--- OUTSIDE RECORDS SUMMARY | 2023-01-20 23:57 | XMS_ITS | Continuity of Care Document ---
Author Name Unknown Organization [facility] Address Unknown Care Team Providers Care Contact Center Analyst Name Role Phone Preet Sofia MD Primary Care Physician Encounter [facility] [place] Date(s): 07/03/21 - 08/02/21 [facility] Allergies, Adverse Reactions, Alerts No Known [...] Not Given Patient Refuses [facility] 3[facility] 4[facility] Medications aspirin 81 mg [...] 06/09/21 12:33:00 EST, Route to Pharmacy Electronically, [facility], 180, cm, 06/09/21 [...] tablet, Refills 0, Tot. Refills 0, Maintenance, 07/29/21 11:01:00 EDT, Route to Pharmacy Electronically, [facility], Partial fill upon patient request... Start Date: 07/29/21 Status: Ordered diclofenac 1% topical gel = [...] Stop 11/24/21 12:33:00EDT, 06/09/21 12:33:00 EST, Tablet, [facility], 180, cm, 06/09/21 8:03:00 EST, Height, [...] 06/09/21 12:34:00 EST, Route to Pharmacy Electronically, [facility], home delivery, 180, cm, 06/09/21 8:03:00 EST, H... Start Date: 06/09/21 Stop Date: 12/06/21 Status: Ordered Symbicort 80mcg/4.5mcg Inhaler 2, puffs, Inhalation, 2 times a day, in the morning and the evening use with spacer chamber rinse mouth and throat after use, # 1 each, Refills 1, Tot. Refills 1, Maintenance, 07/29/21 11:03:00 EDT, Aerosol, Route to Pharmacy Electronically, [id number]... Start Date: 07/29/21 Status: Ordered torsemide 20 [...] consistent with a cyst on CT at [facility] 04/2019(Confirmed) 04/2019 Active Coronary artery [...] Morbid obesity(Confirmed) Active Obstructive sleep apnea(Confirmed) Active .General Surgery Physician Assistant: Zoltan Diaz [phone], [facility]. CPP(Confirmed) Active Post traumatic stress disord er (PTSD)(Confirmed) 1999 Active Severe obesity(Confirmed) Active 1-Seen in CT scan of the abdomen done at [facility] on 08-08-16 Social History Social History Type Response Smoking Status 10 or more cigarette s (1/2 pack or more)/day in last 30 days; Interested in cessation: No; Patient wants NRT during admission No entered on: 06/03/21 Sex
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
--- OUTSIDE RECORDS SUMMARY | 2023-01-20 23:57 | XMS_ITS | Continuity of Care Document ---
Author Name Unknown Organization [facility] Address [address] [place] [address]- Care Team Providers Care Terminal Operator Name Role Phone Preet Sofia MD Primary Care Physician En[place] [facility] [place] Date(s): 08/07/21 - 11/06/21 [facility] [address] [place] [address] Attending Physician: Angela Jasmine MD Admitting Physician: [...] History: [facility] 3Location History: [facility] 4Location History: [facility] Medications aspirin 81 mg oral delayed release [...] tablet, 5 Refills, Maintenance, 10/07/21 17:36:00 EDT, [facility], Prior authorization just received, 1 [...] 0 Refills, Maintenance, 06/09/21 12:34:00 EST, Tablet, [facility], Partial fill upon patient [...] 0 Refills, Maintenance, 06/09/21 12:34:00 EST, Cream, [facility], Partial fill upon patient [...] 11:03:00 EDT, Aerosol, Route to Pharmacy Electronically, [id number]... Start Date: 07/29/21 Status: Ordered torsemide 20 [...] 07/02/21 18:28:00 EST, Route to Pharmacy Electronically, [facility], 180, cm, 06/16/21 15:51:00 [...] consistent with a cyst on CT at [facility] 04/2019(Confirmed) 04/2019 Active Coronary artery [...] Morbid obesity(Confirmed) Active Obstructive sleep apnea(Confirmed) Active .Product Applications Engineer: Tejas Segal [phone], [facility]. CPP(Confirmed) Active Post traumatic stress disord er (PTSD)(Confirmed) 1999 Active Severe obesity(Confirmed) Active 1-Seen in CT scan of the abdomen done at [facility] on 08-08-16 Social History Social History Type Response Smoking Status 10 or more cigarette s (1/2 pack or more)/day in last 30 days; Interested in cessation: No; Patient wants NRT during admission No entered on: 06/03/21 Sex
--- OUTSIDE RECORDS SUMMARY | 2023-01-20 23:57 | XMS_ITS | Continuity of Care Document ---
Author Name Unknown Organization [facility] Address [address] [place] [id number]- Care Team Providers Care Grease Man Name Role Phone Preet Sofia MD Primary Care Physician Encounter [facility] [place] Date(s): 09/29/20 - 10/29/[address] [facility] [address] [address]- Attending Physician: Alexis Daigle Admitting Physician: Alexis Daigle Referring Physician: AdmtrAlexis Allergies, Adverse Reactions, Alerts [...] History: [facility] 3Location History: [facility] 4Location History: [facility] Medications aspirin 81 mg oral delayed release tablet 81 mg, By Mouth, Daily, # 90 tablet, Refills 4, Tot. Refills 4, Maintenance, 09/03/20 20:10:00 EDT,Route to Pharmacy Electronically, [facility], 180, cm, 09/03/20 9:24:00 EDT, Height, 172.7, kg, 08/28/20 4:44:00 EDT, Dry Weight Start Date: 09/03/20 Status: Ordered atorvastatin 40 mg oral tablet 1 tablet = 40 mg, By Mouth, Daily at bedtime, # 90 tablet, 4 Refills, Maintenance, 09/03/20 20:11:00 EDT, Tablet, [facility], 180, cm, 09/03/20 9:24:00 EDT, Height, 172.7, kg, 08/28/20 4:44:00 EDT, Dry Weight Start Date: 09/03/20 Status: Ordered carvedilol 3.125 mg oral tablet 3.125 mg, 1, tablet, By Mouth, 2 times a day, # 180 tablet, Refills 0, Tot. Refills 0, Maintenance,09/21/20 13:23:00 EDT, Route to Pharmacy Electronically, [facility], Partial fill upon patient request if the prescription is for a sched... Start Date: 09/21/20 Status: Ordered clopidogrel 75 mg oral tablet 75 mg, 1, tablet, By Mouth, Daily, # 90 tablet, Refills 3, Tot. Refills 3, Hard Stop 01/17/22 16:10:00 EDT, 01/22/21 16:10:00 EDT, [id number], 180, cm, 04/08/20 13:32:00 EST, Height, 181.... Start Date: 01/22/21 Stop Date: 01/17/22 Status: Ordered Entresto 24 mg-26 mg oral tablet 1 tablet, By Mouth, 2 times a day, # 180 tablet, 0 Refills, Maintenance, 09/21/20 13:24:00 EDT, Tablet, [facility], Partial fill upon patient request if the prescription is for a schedule II opioid drug., 1 tablet By Mouth 2 times a day,... Start Date: 09/21/20 Status: Ordered FLUoxetine 20 mg oral capsule 20 mg, 1, capsule, By Mouth, Daily, # 90 capsule, Refills 4, Tot. Refills 4, Maintenance, 09/03/20 20:09:00 EDT, Route to Pharmacy Electronically, [facility], home delivery, 180, cm, 09/03/20 9:24:00 EDT, Height, 172.7, kg, ... Start Date: 09/03/20 Status: Ordered levothyroxine 0.05 mg oral tablet 1 tablet = 50 mcg, By Mouth, Daily, # 90 tablet, 4 Refills, Maintenance, 06/26/20 17:25:00 EST, Tablet, [facility], home delivery, 180, cm, 06/26/20 14:13:00 EST, Height, 181.6, kg, 03/27/20 14:58:00 EST, Dry Weight Start Date: 06/26/20 Status: Ordered nortriptyline 10 mg oral capsule 10 mg, 1, capsule, By Mouth, Daily, # 90 capsule, Refills 3, Tot. Refills 3, Maintenance, 09/03/20 20:09:00 EDT, Route to Pharmacy Electronically, [facility], 180, cm, 09/03/20 9:24:00 EDT, Height, [...] 06/26/20 17:25:00 EST, Route to Pharmacy Electronically, [facility], home delivery, 180, cm, 06/26/20 14:13:00 EST, Height, 181.6, kg, 03/27/20... Start Date: 06/26/20 Status: Ordered torsemide 20 mg oral tablet 1 tablet = 20 mg, By Mouth, Daily, # 90 tablet, 0 Refills, Maintenance, 09/21/20 13:23:00 EDT, Tablet, [facility], Partial fill upon patient request [...] consistent with a cyst on CT at [facility] 04/2019(Confirmed) 04/2019 Active Coronary artery [...] Morbid obesity(Confirmed) Active Obstructive sleep apnea(Confirmed) Active .Synchronous Motor Assembler: Zoltan Diaz [phone], [facility]. CPP(Confirmed) Active Post traumatic stress disord er (PTSD)(Confirmed) 1999 Active 1-Seen in CT scan of the abdomen done at [facility] on 08-08-16 Social History Social History Type Response Smoking Status 10 or more cigarette s (1/2 pack or more)/day in last 30 days; Other: [id number]; entered on: 09/03/20 Sex
--- OUTSIDE RECORDS SUMMARY | 2023-01-20 23:57 | XMS_ITS | Continuity of Care Document ---
Author Name Unknown Organization [facility] Address [address] [place] [address]- Care Team Providers Care Pharmacy Operations Specialist Name Role Phone Preet Sofia MD Primary Care Physician Encounter [facility] Date(s): 08/12/21 - 09/11/21 [facility] [address] [place] [address]- Attending Physician: Alexis Daigle Admitting Physician: Admtr, [id number] Referring Physician: Admtr, Ar8 Allergies, Adverse Reactions, [...] History: [facility] 3Location History: [facility] 4Location History: [facility] Medications aspirin 81 mg oral [...] tablet, 5 Refills, Maintenance, 11/24/21 12:33:00 EDT, [facility], 1 tablet By Mouth 2 [...] 0 Refills, Maintenance, 06/09/21 12:34:00 EST, Tablet, [facility], Partial fill upon patient [...] 0 Refills, Maintenance, 06/09/21 12:34:00 EST, Cream, [facility], Partial fill upon patient [...] 11:03:00 EDT, Aerosol, Route to Pharmacy Electronically, [id number]... Start Date: 07/29/21 Status: Ordered torsemide 20 [...] consistent with a cyst on CT at [facility] 04/2019(Confirmed) 04/2019 Active Coronary artery [...] class I(Confirmed) Active Obstructive sleep apnea(Confirmed) Active .Manufacturing Engineering Intern: Zoltan Diaz [phone], [facility]. CPP(Confirmed) Active Post traumatic stress disord er (PTSD)(Confirmed) 1999 Active 1-Seen in CT scan of the abdomen done at [facility] on 08-08-16 Social History Social History Type Response Smoking Status 10 or more cigarette s (1/2 pack or more)/day in last 30 days; Interested in cessation: No; Patient wants NRT during admission No entered on: 06/03/21 Sex
--- OUTSIDE RECORDS SUMMARY | 2023-01-20 23:57 | XMS_ITS | Continuity of Care Document ---
Author Name Unknown Organization [facility] Address Unknown Care Team Providers Care Academic Vice President Name Role Phone Preet Sofia MD Primary Care Physician Encounter [facility] [place] Date(s): 01/20/21 - 02/19/21 [facility] Allergies, Adverse Reactions, Alerts Substance Reaction [...] 03/28/20 Not Given Patient Refuses 1Location History: [facility] 2Location History: [facility] 3Location History: [facility] 4Location History: [...] consistent with a cyst on CT at [facility] 04/2019(Confirmed) 04/2019 Active Coronary artery [...] Morbid obesity(Confirmed) Active Obstructive sleep apnea(Confirmed) Active .Dancing Teacher: Zoltan Diaz [phone], [facility]. CPP(Confirmed) Active Post traumatic stress disord er (PTSD)(Confirmed) 1999 Active 1-Seen in CT scan of the abdomen done at [facility] on 08-08-16 Social History Social History Type Response Smoking Status 10 or more cigarette s (1/2 pack or more)/day in last 30 days; Other: [id number]; entered on: 09/03/20 Sex
--- OUTSIDE RECORDS SUMMARY | 2023-01-20 23:57 | XMS_ITS | Continuity of Care Document ---
Author Name Unknown Organization [facility] Address [address] [place] [id number]- Care Team Providers Care Door Worker Name Role Phone Preet Sofia MD Primary Care Physician Encounter [facility] Date(s): 11/18/21 - 11/20/[address] [address]- Encounter Diagnosis Chest pressure(Final) - 11/19/21 CAD (coronary artery disease)(Final) - 11/19/21 Obesity(Final) - 11/19/21 History of CHF (congestive heart failure)(Final) - 11/19/21 Discharge Disposition: A-D/C Home Attending Physician: Scotty Espinoza MD Admitting Physician: Luis Oviedo DO Referring Physician: Not on Staff, Referring [...] Daily, # 28 tablet, 1 Refills, [facility], 180, cm, 11/03/21 2:14:00 EDT, Height, 184, kg, 11/01/21 11:27:00 EDT, Dry Weight Start Date: 11/09/21 Status: Ordered betamethasone-clotrimazole 0.05%-1% topical cream 1 application, Topically, 2 times a day, apply to feet, # 45 Gm, 0 Refills, Maintenance, 07/29/21 11:03:00 EDT, Cream, [facility], Partial fill upon patient request if the prescription is for a schedule II opioid drug., 1 application Topic... Start Date: 07/29/21 Status: Ordered carvedilol 6.25 mg oral tablet 6.25 mg, Tablet, By Mouth, 11/19/21 21:00:00 EDT Start Date: 11/19/21 Stop Date: 11/19/21 Status: Completed carvedilol 6.25 mg oral tablet 6.25 mg, 1, tablet, By Mouth, 2 times a day, for heart and blood pressure, # 60 tablet, Refills 5, Tot. Refills 5, Maintenance, 08/16/21 15:35:00 EDT, Route to Pharmacy Electronically, [facility], 180, cm, 08/12/21 8:38:00 EDT, Height, 175... Start Date: 08/16/21 Status: Ordered Dilaudid Inj 1 mg, Injection, IV Push Slowly, Every 4 hours, Hold for: sedation, RR<12, PRN for Pain , Severe, Routine, 11/18/21 22:29:00 EDT Start Date: 11/18/21 Stop Date: 11/20/21 Status: Discontinued Entresto 24 mg-26 mg oral [...] mg, By Mouth, Every 6 hours, PRN Pain , Severe, for 5 days, # 20 capsule, 0 Refills, Acute 11/25/21 10:43:00 EDT, 11/20/21 10:43:00 EDT, Capsule, [facility], Partial fill upon patient request if the prescription is for a sc... Start Date: 11/20/21 Stop Date: 11/25/21 Status: Ordered spironolactone 25 mg oral tablet [...] 11:03:00 EDT, Aerosol, Route to Pharmacy Electronically, [id number]... Start Date: 07/29/21 Status: Ordered torsemide 20 [...] consistent with a cyst on CT at [facility] 04/2019(Confirmed) 04/2019 Active Coronary artery [...] obesity(Confirmed) Active Obstructive sleep apnea(Confirmed) Active .Senior Environmental Consultant: Tejas Segal [phone], [facility]. CPP(Confirmed) Active Post traumatic stress disord er (PTSD)(Confirmed) 1999 Active Severe obesity(Confirmed) Active 1-Seen in CT scan of the abdomen done at [facility] on 08-08-16 Results Radiology Reports * Exam Date Time Procedure Performing Provider Status 11/18/21 11:48 PM Chest Portable Titus , Luciano; Auth (Ve rified) Notes: (Chest Portable) Reason For Exam: Chest Pain;Other: RESULT: Chest Portable Chest Portable Hx of Present Illness: chest pain x 40 mins; Reason: Other:; Chest Pain; Clinical Question(s): Other: COMPARISON: 11/15/2021 FINDINGS: LINES AND TUBES: None. LUNGS AND PLEURA: Left basilar retrocardiac opacification, nonspecific. Scattered right mid and lower lung field interstitial opacities. No large pneumothorax. HEART, MEDIASTINUM AND CAROLA: Cardiomediastinal silhouette is poorly evaluated due to left basilar and retrocardiac opacification. BONES AND SOFT TISSUES: No acute abnormality. IMPRESSION: Left basilar effusion. Mild interval improvement of right basilar effusion. Superimposed atelectasis versus infection cannot be excluded. WSN: [id number] Ordering Physician: Thalia Mckeon Dictated By: Anish Angel MD Dictated Date/Time: 11/18/21 11:53 p Reviewed By: Anish Angel MD Signed By: Anish Angel MD Signed Date/Time: 11/18/21 11:53 pm Transcribed By: SHANNA Transcribed Date/Time: 11/18/21 11:51 pm Vital Signs Most recent to oldest [Reference Range]: 1 2 3 Oxygen Saturation [94-100 %] 94 % (11/20/21 8:14 AM) 96 % (11/20/21 3:24 AM) 96 % (11/19/21 8:04 PM) Pulse Rate [55-90 bpm] 59 bpm (11/20/21 8:14 AM) 78 bpm (11/20/21 3:24 AM) 61 bpm (11/19/21 9:17 PM) Blood Pressure [90-138/55-84 mm Hg] 119/82mm Hg (11/20/21 8:14 AM) 120/90mm Hg (11/20/21 3:24 AM) 108/62mm Hg (11/19/21 9:17 PM) Respiratory Rate [16-30 br/min] 18 br/min (11/20/21 8:14 AM) 16 br/min (11/20/21 6:06 AM) 16 br/min (11/20/21 5:36 AM) Temperature [96.8-100.4 DegF] 96.6 DegF *L* (11/20/21 8:14 AM) 97.1 DegF (11/20/21 3:24 AM) 97 DegF (11/19/21 8:04 PM) Liters per Minute 2 L/min (11/19/21 3:00 PM) 2 L/min (11/19/21 12:00 PM) 2 L/min (11/19/21 11:04 AM) Mode of Delivery (Oxygen) Room air (11/20/21 8:14 AM) Room air (11/20/21 3:24 AM) Room air (11/19/21 8:04 PM) Blood pressure sites Arm, right (11/20/21 8:14 AM) Arm, left (11/20/21 3:24 AM) Arm, right (11/19/21 8:04 PM) Temperature Route Temporal (11/20/21 8:14 AM) Temporal (11/20/21 3:24 AM) Temporal (11/19/21 8:04 PM) Social History Social History Type Response Smoking Status 10 or more cigarette s (1/2 pack or more)/day in last 30 days; Interested in cessation: No; Patient wants NRT during admission No entered on: 06/03/21 Sex
--- OUTSIDE RECORDS SUMMARY | 2023-01-20 23:57 | XMS_ITS | Continuity of Care Document ---
Author Name Unknown Organization [facility] ter Address [address] [place] [id number]- Care Team Providers Care Account Management Assistant Name Role Phone Preet Sofia MD Primary Care Physician Encounter [facility] [place] Date(s): 05/20/21 - 06/25/[address] [address] Attending Physician: Tom Heller MD Admitting Physician: Tom Heller MD Referring Physician: Grisel Martin MD Allergies, Adverse Reactions, Alerts No Known [...] History: [facility] 2Location History: [facility] 3Location History: [facility] 4Location History: [facility] Medications aspirin 81 mg oral delayed release tablet 81 mg, By Mouth, Daily, # 30 tablet, Refills 5, Tot. Refills 5, Maintenance, 06/09/21 12:33:00 EST,Route to Pharmacy Electronically, [facility], 180, cm, 06/09/21 8:03:00 EST, Height, 168.5, kg, 06/03/21 15:52:00 EST, Dry Weight Start Date: 06/09/21 Stop Date: 12/06/21 Status: Ordered atorvastatin 40 mg oral tablet 1 tablet = 40 mg, By Mouth, Daily at bedtime, # 30 tablet, 5 Refills, Maintenance, 06/09/21 12:33:00 EST, Tablet, [facility], 180, cm, 06/09/21 8:03:00 EST, Height, 168.5, kg, 06/03/21 15:52:00 EST, Dry Weight Start Date: 06/09/21 Stop Date: 12/06/21 Status: Ordered carvedilol 3.125 mg oral tablet 3.125 mg, 1, tablet, By Mouth, 2 times a day, # 56 tablet, Refills 5, Tot. Refills 5, Maintenance, 06/09/21 12:33:00 EST, Route to Pharmacy Electronically, [facility], 180, cm, :03:00 EST, Height, 168.5, kg, 06/03/21 15:52:00 E... Start Date: 06/09/21 Status: Ordered clopidogrel 75 mg oral tablet 75 mg, 1, tablet, By Mouth, Daily, # 30 tablet, Refills 0, Tot. Refills 0, Maintenance, 06/09/21 12:33:00 EST, Route to Pharmacy Electronically, [facility], Partial fill upon patient request if the prescription is for a schedule II opioi... Start Date: 06/09/21 Status: Ordered diclofenac 1% topical gel = [...] 5 Refills, Maintenance, 06/09/21 12:33:00 EST, Tablet, [facility], 1 tablet By Mouth 2 times a day,x28 days, 180, cm, 06/09/21 8:03:00 EST, Height, 168.5, kg, 06/03/21 15:52:00 EST, Dry Weight Start Date: 06/09/21 Stop Date: 11/24/21 Status: Ordered FLUoxetine 40 mg oral capsule 1 capsule = 40 mg, By Mouth, Daily, dose increase at time of next scheduled refill, # 28 capsule, 5Refills, Maintenance, 06/09/21 12:33:00 EST, Capsule, [facility], Partial fill upon patient request if the prescription is for a schedule... Start Date: 06/09/21 Status: Ordered levothyroxine 0.2 mg oral tablet = 200 mcg, By Mouth, Daily, # 30 tablet, 0 Refills, Maintenance, 06/09/21 12:31:00 EST, Tablet, [facility], Partial fill upon patient request if the prescription is for a schedule II opioid drug., 180, cm, 06/09/21 8:03:00 EST, Height, 1... Start Date: 06/09/21 Status: Ordered lidocaine 5% topical film 2 patch, Topically, Daily, PRN Pain , Moderate, remove patches after 12 hours. To chest and legs., # 30 patch, 0 Refills, Maintenance, 06/09/21 12:52:00 EST, Patch, [facility], Partial fill upon patient request if the prescription is for... Start Date: 06/09/21 Status: Ordered nitroglycerin 0.4 mg sublingual tablet 1 tablet = 0.4 mg, Sublingual, Every 5 minutes, PRN Chest Pain, # 100 tablet, 0 Refills, Maintenance, 06/09/21 12:34:00 EST, Tablet, [facility], Partial fill upon patient request if [...] 0 Refills, Maintenance, 06/09/21 12:34:00 EST, Cream, [facility], Partial fill upon patient request if the prescription is for a schedule II opioid drug., 1 ap... Start Date: 06/09/21 Status: Ordered spironolactone 25 mg oral tablet 25 mg, 1, tablet, By Mouth, Daily, # 30 tablet, Refills 5, Tot. Refills 5, Maintenance, 06/09/21 12:34:00 EST, Route to Pharmacy Electronically, [facility], home delivery, 180, cm, 06/09/21 8:03:00 EST, Height, 168.5, kg, 06/03/21 15:52:... Start Date: 06/09/21 Stop Date: 12/06/21 Status: Ordered torsemide 20 mg oral tablet 2 tablet = 40 mg, By Mouth, 2 times a day, # 120 tablet, 0 Refills, Maintenance, 06/09/21 12:31:00 EST, Tablet, [facility], Partial fill upon patient request if the prescription is for a schedule II opioid drug., 180, cm, 06/09/21 8:03:0... Start Date: 06/09/21 Status: Ordered traZODone 50 mg oral tablet 50 mg, 1, tablet, By Mouth, Daily at bedtime, # 30 tablet, Refills 5, Tot. Refills 5, Maintenance, 06/09/21 12:34:00 EST, Route to Pharmacy Electronically, [facility], 180, cm, 228:03:00 EST, Height, 168.5, [...] consistent with a cyst on CT at [facility] 04/2019(Confirmed) 04/2019 Active Coronary artery [...] Morbid obesity(Confirmed) Active Obstructive sleep apnea(Confirmed) Active .Solid Glass Rod Dowel Machine Operator: Zoltan Diaz [phone], [facility]. CPP(Confirmed) Active Post traumatic stress disord er (PTSD)(Confirmed) 1999 Active Severe obesity(Confirmed) Active 1-Seen in CT scan of the abdomen done at [facility] on 08-08-16 Social History Social History Type Response Smoking Status 10 or more cigarette s (1/2 pack or more)/day in last 30 days; Interested in cessation: No; Patient wants NRT during admission No entered on: 06/03/21 Sex
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
--- OUTSIDE RECORDS SUMMARY | 2023-01-20 23:57 | XMS_ITS | Continuity of Care Document ---
Author Name Unknown Organization [facility] Address Unknown Care Team Providers Care Oracle Brm Developer Name Role Phone Preet Sofia MD Primary Care Physician Encounter [facility] Date(s): 11/03/21 - 12/03/21 [facility] Allergies, Adverse Reactions, Alerts No Known Allergies [...] 03/28/20 Not Given Patient Refuses 1Location History: [facility] 2Location History: [facility] 3Location History: [facility] 4Location History: [facility] Medications aspirin 81 mg oral delayed release tablet 81 mg, By Mouth, Daily, # 30 tablet, Refills 11, Tot. Refills 11, Maintenance, 12/06/21 12:33:00 EDT, Route to Pharmacy Electronically, [facility], 180, cm, 06/16/21 15:51:00 EST, Height, 168.5, kg, 06/03/21 15:52:00 EST, Dry Weight Start Date: 12/06/21 Status: Ordered atorvastatin 80 mg oral tablet 1 tablet, By Mouth, Daily, # 28 tablet, 1 Refills, [facility], 180, cm, 11/03/21 2:14:00 EDT, Height, [...] 0 Refills, Maintenance, 06/09/21 12:34:00 EST, Tablet, [facility], Partial fill upon patient [...] 11:03:00 EDT, Aerosol, Route to Pharmacy Electronically, [id number]... Start Date: 07/29/21 Status: Ordered torsemide 20 [...] consistent with a cyst on CT at [facility] 04/2019(Confirmed) 04/2019 Active Coronary artery disease, [...] obesity(Confirmed) Active Obstructive sleep apnea(Confirmed) Active .Business Unit Manager: Tejas Segal [phone], [facility] [employer]. CPP(Confirmed) Active Post traumatic stress disord er (PTSD)(Confirmed) 1999 Active Severe obesity(Confirmed) Active 1-Seen in CT scan of the abdomen done at [facility] on 08-08-16 Social History Social History Type Response Smoking Status 10 or more cigarette s (1/2 pack or more)/day in last 30 days; Interested in cessation: No; Patient wants NRT during admission No entered on: 06/03/21 Sex
--- OUTSIDE RECORDS SUMMARY | 2023-01-20 23:57 | XMS_ITS | Continuity of Care Document ---
Author Name Unknown Organization [facility] Address Unknown Care Team Providers Care Manager Strategy Name Role Phone Preet Sofia MD Primary Care Physician [phone] Encounter [facility] Date(s): 08/11/21 - 09/10/21 [facility] Allergies, Adverse Reactions, Alerts No Known Allergies [...] Given Patient Refuses 1Location History: [facility] 2Location History: [facility] 3Location History: [facility] 4Location History: [facility] Medications aspirin 81 mg oral delayed [...] 0 Refills, Maintenance, 07/29/21 11:03:00 EDT, Cream, [facility], Partial fill upon patient request [...] 0 Refills, Maintenance, 06/09/21 12:34:00 EST, Tablet, [facility], Partial fill upon patient request [...] 0 Refills, Maintenance, 06/09/21 12:34:00 EST, Cream, [facility], Partial fill upon patient request [...] 11:03:00 EDT, Aerosol, Route to Pharmacy Electronically, [id number]... Start Date: 07/29/21 Status: Ordered torsemide 20 [...] consistent with a cyst on CT at [facility] 04/2019(Confirmed) 04/2019 Active Coronary artery [...] class I(Confirmed) Active Obstructive sleep apnea(Confirmed) Active .Product Safety Tester: Zoltan Diaz [phone], [facility]. CPP(Confirmed) Active Post traumatic stress disord er (PTSD)(Confirmed) 1999 Active 1-Seen in CT scan of the abdomen done at [facility] on 08-08-16 Social History Social History Type Response Smoking Status 10 or more cigarette s (1/2 pack or more)/day in last 30 days; Interested in cessation: No; Patient wants NRT during admission No entered on: 06/03/21 Sex
--- OUTSIDE RECORDS SUMMARY | 2023-01-20 23:58 | XMS_ITS | Continuity of Care Document ---
Author Name Unknown Organization [facility] Address [address] [place] [address]- Care Team Providers Care Curriculum And Assessment Coordinator Name Role Phone Preet Sofia MD Primary Care Physician [phone] [facility] Date(s): 09/03/20 - 10/03/20 [facility] [address]i [address] [place] [address]- Attending Physician: Admgm, Alexis Admitting Physician: AdmtrAlexis Referring Physician: Admtr, Ar8 Allergies, Adverse Reactions, Alerts Substance Reaction Severity [...] 03/28/20 Not Given Patient Refuses 1Location History: [facility] 2Location History: [facility] 3Location History: [facility] 4Location History: [facility] Medications acetaminophen 325 mg oral tablet 650 mg, 2, tablet, By Mouth, Every 6 hours, PRN, for 30 days, # 50 tablet, Refills 0, Tot. Refills 0, Acute 10/21/20 13:24:00 EDT, Pain , Moderate, 09/21/20 13:24:00 EDT, Route to Pharmacy Electronically, [facility], Partial fill upon pa... Start [...] Maintenance, 09/03/20 20:10:00 EDT,Route to Pharmacy Electronically, [facility], 180, cm, 09/03/20 9:24:00 EDT, Height, 172.7, kg, 08/28/20 4:44:00 EDT, Dry Weight Start Date: 09/03/20 Status: Ordered atorvastatin 40 mg oral tablet 1 tablet = 40 mg, By Mouth, Daily at bedtime, # 90 tablet, 4 Refills, Maintenance, 09/03/20 20:11:00 EDT, Tablet, [facility], 180, cm, 09/03/20 9:24:00 EDT, Height, 172.7, kg, 08/28/20 4:44:00 EDT, Dry Weight Start Date: 09/03/20 Status: Ordered carvedilol 3.125 mg oral tablet 3.125 mg, 1, tablet, By Mouth, 2 times a day, # 180 tablet, Refills 0, Tot. Refills 0, Maintenance,09/21/20 13:23:00 EDT, Route to Pharmacy Electronically, [facility], Partial fill upon patient request if the prescription is for a sched... Start Date: 09/21/20 Status: Ordered clopidogrel 75 mg oral tablet 75 mg, 1, tablet, By Mouth, Daily, # 90 tablet, Refills 3, Tot. Refills 3, Hard Stop 01/17/22 16:10:00 EDT, 01/22/21 16:10:00 EDT, Route to Pharmacy Electronically, [facility]/pharmacy #[id number], home delivery please, 180, cm, 04/08/20 13:32:00 EST, Height, 181.... Start Date: 01/22/21 Stop Date: 01/17/22 Status: Ordered Entresto 24 mg-26 mg oral tablet 1 tablet, By Mouth, 2 times a day, # 180 tablet, 0 Refills, Maintenance, 09/21/20 13:24:00 EDT, Tablet, [facility] 3, Partial fill upon patient request if the prescription is for a schedule II opioid drug., 1 tablet By Mouth 2 times a day,... Start Date: 09/21/20 Status: Ordered FLUoxetine 20 mg oral capsule 20 mg, 1, capsule, By Mouth, Daily, # 90 capsule, Refills 4, Tot. Refills 4, Maintenance, 09/03/20 20:09:00 EDT, Route to Pharmacy Electronically, [facility], [place] [facility], 180, cm, 09/03/20 9:24:00 EDT, Height, 172.7, kg, ... Start Date: 09/03/20 Status: Ordered levothyroxine 0.05 mg oral tablet 1 tablet = 50 mcg, By Mouth, Daily, # 90 tablet, 4 Refills, Maintenance, 06/26/20 17:25:00 EST, Tablet, [facility], [place] [facility], 180, cm, 06/26/20 14:13:00 EST, Height, [...] 09/03/20 20:09:00 EDT, Route to Pharmacy Electronically, [facility], 180, cm, 09/03/20 9:24:00 EDT, Height, [...] 09/21/20 13:24:00 EDT, Route to Pharmacy Electronically, [facility] Tablet, Partial... Start Date: 09/21/20 Stop Date: 10/21/20 Status: Ordered spironolactone 25 mg oral tablet 25 mg, 1, tablet, By Mouth, Daily, # 90 tablet, Refills 3, Tot. Refills 3, Maintenance, 06/26/20 17:25:00 EST, Route to Pharmacy Electronically, [facility], home delivery, 180, cm, 06/26/20 14:13:00 EST, Height, 181.6, kg, 03/27/20... Start Date: 06/26/20 Status: Ordered torsemide 20 mg oral tablet 1 tablet = 20 mg, By Mouth, Daily, # 90 tablet, 0 Refills, Maintenance, 09/21/20 13:23:00 EDT, Tablet, [facility], Partial fill upon patient [...] consistent with a cyst on CT at [facility] 04/2019(Confirmed) 04/2019 Active Coronary artery [...] Morbid obesity(Confirmed) Active Obstructive sleep apnea(Confirmed) Active .Commercial Manager: Zoltan Diaz [phone], [facility]. BHCPP(Confirmed) Active Post traumatic stress disord er (PTSD)(Confirmed) 1999 Active 1-Seen in CT scan of the abdomen done at [facility] on 08-08-16 Social History Social History Type Response Smoking Status 10 or more cigarette s (1/2 pack or more)/day in last 30 days; Other: [id number]; entered on: 09/03/20 Sex
--- OUTSIDE RECORDS SUMMARY | 2023-01-20 23:58 | XMS_ITS | Continuity of Care Document ---
Author Name Unknown Organization [facility] Address [address] [place] [address]- Care Team Providers Care Presentation Designer Name Role Phone Bismark TORRES, Preet Hall Primary Care Physician [phone] Encounter [facility] Date(s): 06/09/21 - 07/09/[address] [address]- Allergies, Adverse Reactions, Alerts No Known Allergies [...] 06/09/21 12:33:00 EST, Route to Pharmacy Electronically, [facility], 180, cm, 06/09/21 8:03:00 EST, Height, 168.5, kg, 06/03/21... Start Date: 06/09/21 Stop Date: 12/06/21 Status: Ordered atorvastatin 40 mg oral tablet 1 tablet = 40 mg, By Mouth, Daily at bedtime, for 30 days, # 30 tablet, 5 Refills, Hard Stop 12/06/21 12:33:00 EDT, 06/09/21 12:33:00 EST, Tablet, [facility], 180, cm, 06/09/21 8:03:00 [...] Stop 11/24/21 12:33:00EDT, 06/09/21 12:33:00 EST, Tablet, [facility], 180, cm, 06/09/21 8:03:00 EST, Height, [...] Acute 07/26/21 7:53:00 EDT, :53:00 EST, Patch, [facility], Partial fill upon patient request if the prescriptionis for a schedule II opioid drug., 1 patch Topicall... Start Date: 06/26/21 Stop Date: 07/26/21 Status: Ordered nitroglycerin 0.4 mg sublingual tablet 1 tablet = 0.4 mg, Sublingual, Every 5 minutes, PRN Chest Pain, # 100 tablet, 0 Refills, Maintenance, 06/09/21 12:34:00 EST, Tablet, [facility] 3, Partial fill upon patient request if [...] 0 Refills, Maintenance, 06/09/21 12:34:00 EST, Cream, [facility], Partial fill upon patient request [...] 06/09/21 12:34:00 EST, Route to Pharmacy Electronically, [facility], home delivery, 180, cm, 06/09/21 8:03:00 [...] consistent with a cyst on CT at [facility] 04/2019(Confirmed) 04/2019 Active Coronary artery [...] Morbid obesity(Confirmed) Active Obstructive sleep apnea(Confirmed) Active .Director Of Managed Services: Zoltan Diaz [phone], [facility]. CPP(Confirmed) Active Post traumatic stress disord er (PTSD)(Confirmed) 1999 Active Severe obesity(Confirmed) Active 1-Seen in CT scan of the abdomen done at [facility] on 08-08-16 Social History Social History Type Response Smoking Status 10 or more cigarette s (1/2 pack or more)/day in last 30 days; Interested in cessation: No; Patient wants NRT during admission No entered on: 06/03/21 Sex
--- OUTSIDE RECORDS SUMMARY | 2023-01-20 23:58 | XMS_ITS | Continuity of Care Document ---
Author Name Unknown Organization [facility] Address [address] [place] [address]- Care Team Providers Care Medical Resident Name Role Phone Preet Sofia MD Primary Care Physician Encounter [facility] Date(s): 06/06/20 - 07/06/20 [facility]/[address] [address]- Allergies, Adverse Reactions, Alerts Substance Reaction Severity [...] History: [facility] Medications ammonium lactate 12% topical cream 1 application, Topically, 2 times a day, for thick dry skin and callous, # 140 Gm, 3 Refills, Maintenance, 06/26/20 17:25:00 EST, Cream, [facility], home delivery, 1 application Topically 2 times a day,Instr:for thick dry skin and... Start Date: 06/26/20 Status: Ordered aspirin 81 mg oral delayed release tablet 81 mg, 1, tablet, By Mouth, Daily, # 90 tablet, Refills 3, Tot. Refills 3, Maintenance, 01/17/22 16:35:00 EDT, Route to Pharmacy Electronically, [facility], home delivery, 180, cm, 06/26/20 14:13:00 EST, Height, 181.6, kg, 03/27/20... Start Date: 01/17/22 Status: Ordered aspirin 81 mg oral delayed release tablet 81 mg, 1, tablet, By Mouth, Daily, # 90 tablet, Refills 3, Tot. Refills 3, Hard Stop 01/17/22 16:35:00 EDT, 01/22/21 16:35:00 EDT, Route to Pharmacy Electronically, [facility]/pharmacy #[id number], home delivery please, 180, cm, 04/08/20 13:32:00 EST, Height, 181.... Start Date: 01/22/21 Stop Date: 01/17/22 Status: Ordered aspirin 81 mg oral delayed release tablet 81 mg, 1, tablet, By Mouth, Daily, for 30 days, # 30 tablet, Refills 11, Tot. Refills 11, Hard Stop01/22/21 16:35:00 EDT, 01/28/20 16:35:00 EDT, Route to Pharmacy Electronically, [facility] 3, 180.3, cm, 01/28/20 12:32:00 EDT, Height, 168... Start Date: 01/28/20 Stop Date: 01/22/21 Status: Ordered atorvastatin 40 mg oral tablet 1 tablet = 40 mg, By Mouth, Daily at bedtime, # 90 tablet, 3 Refills, Maintenance, 06/26/20 17:25:00 EST, Tablet, [facility], home delivery, 180, cm, 06/26/20 14:13:00 EST, Height, 181.6, kg, 03/27/20 14:58:00 EST, Dry Weight Start Date: 06/26/20 Status: Ordered atorvastatin 40 mg oral tablet 1 tablet = 40 mg, By Mouth, Daily at bedtime, # 90 tablet, 3 Refills, Hard Stop 07/26/20 16:36:00 EDT, 04/27/20 16:36:00 EST, Tablet, [facility]/pharmacy #1972, home delivery please, 180, cm, 04/08/20 13:32:00 EST, Height, 181.6, kg, 03/27/20 14:58:00 EST, D... Start Date: 04/27/20 Stop Date: 07/26/20 Status: Ordered clopidogrel 75 mg oral tablet 75 mg, 1, tablet, By Mouth, Daily, # 90 tablet, Refills 3, Tot. Refills 3, Maintenance, 01/17/22 16:10:00 EDT, Route to Pharmacy Electronically, [facility], home delivery, 180, cm, 06/26/20 14:13:00 EST, Height, 181.6, kg, 03/27/20... Start Date: 01/17/22 Status: Ordered clopidogrel 75 mg oral tablet 75 mg, 1, tablet, By Mouth, Daily, # 90 tablet, Refills 3, Tot. Refills 3, Hard Stop 01/17/22 16:10:00 EDT, 01/22/21 16:10:00 EDT, [facility], 180, cm, 04/08/20 13:32:00 EST, Height, 181.... Start Date: 01/22/21 Stop Date: 01/17/22 Status: Ordered clopidogrel 75 mg oral tablet 75 mg, 1, tablet, By Mouth, Daily, for 30 days, # 30 tablet, Refills 11, Tot. Refills 11, Hard Stop01/22/21 16:10:00 EDT, 01/28/20 16:10:00 EDT, Route to Pharmacy Electronically, [facility] 3, 180.3, cm, 01/28/20 12:32:00 EDT, Height, 168... Start Date: 01/28/20 Stop Date: 01/22/21 Status: Ordered FLUoxetine 20 mg oral capsule 20 mg, 1, capsule, By Mouth, Daily, # 90 capsule, Refills 4, Tot. Refills 4, Maintenance, 06/26/20 17:25:00 EST, Route to Pharmacy Electronically, [facility], home delivery, 180, cm, 06/26/20 14:13:00 EST, Height, 181.6, kg, ... Start Date: 06/26/20 Status: Ordered furosemide 20 mg oral tablet 20 mg, 1, tablet, By Mouth, Daily in AM, # 90 tablet, Refills 3, Tot. Refills 3, Maintenance, 09/24/20 16:36:00 EDT, Route to Pharmacy Electronically, [facility], home delivery please, 180, cm, 06/26/20 14:13:00 EST, Height, 181.6,... Start Date: 09/24/20 Status: Ordered furosemide 20 mg oral tablet 20 mg, 1, tablet, By Mouth, Daily in AM, # 90 tablet, Refills 3, Tot. Refills 3, Hard Stop 09/25/2115:36:00 EDT, 05/27/20 16:36:00 EST, Route to Pharmacy Electronically, [facility]/pharmacy #1972, home delivery please, 180, cm, 04/08/20 13:32:00 EST, Height... Start Date: 05/27/20 Stop Date: 09/24/20 Status: Ordered levothyroxine 0.05 mg oral tablet 1 tablet = 50 mcg, By Mouth, Daily, # 90 tablet, 4 Refills, Maintenance, 06/26/20 17:25:00 EST, Tablet, [facility], home delivery, 180, cm, 06/26/20 14:13:00 EST, Height, 181.6, kg, 03/27/20 14:58:00 EST, Dry Weight Start Date: 06/26/20 Status: Ordered lidocaine 5% topical cream 1 application, Topically, 3 times a day, may interchange 3-5% cream or ointment per insurance coverage., # 45 Gm, 0 Refills, Maintenance, 06/26/20 17:30:00 EST, Cream, [facility],1 application Topically 3 times a day,Instr:may int... Start Date: 06/26/20 Status: Ordered lisinopril 5 mg oral tablet 2.5 mg, 0.5, tablet, By Mouth, Daily, for 30 days, # 45 tablet, Refills 3, Tot. Refills 3, Hard Stop 11/23/20 16:12:00 EDT, 07/26/20 16:12:00 EDT, Route to Pharmacy Electronically, [facility]/pharmacy [facility]1972, home delivery please, 180, cm, 06/26/20 14:13:00 E... Start Date: 07/26/20 Stop Date: 11/23/20 Status: Ordered lisinopril 5 mg oral tablet 2.5 mg, 0.5, tablet, By Mouth, Daily, # 45 tablet, Refills 3, Tot. Refills 3, Maintenance, 11/24/2115:12:00 EDT, Route to Pharmacy Electronically, [facility], home delivery, 180,cm, 06/26/20 14:13:00 EST, Height, 181.6, kg, 03/27... Start Date: 11/23/20 Stop Date: 03/23/21 Status: Ordered lisinopril 5 mg oral tablet 2.5 mg, 0.5, tablet, By Mouth, Daily, for 30 days, # 15 tablet, Refills 2, Tot. Refills 2, Hard Stop 07/26/20 16:12:00 EDT, 04/27/20 16:12:00 EST, Route to Pharmacy Electronically, [facility]/pharmacy #1972, home delivery please, 180, cm, 04/08/20 13:32:00 E... Start Date: 04/27/20 Stop Date: 07/26/20 Status: Ordered metoprolol 25 mg oral tablet, extended release 25 mg, 1, tablet, By Mouth, Daily, # 90 tablet, Refills 4, Tot. Refills 4, Maintenance, 06/26/20 17:25:00 EST, Route to Pharmacy Electronically, [facility], home delivery, 180, cm, 06/26/20 14:13:00 EST, Height, 181.6, kg, 03/27/20... Start Date: 06/26/20 Status: Ordered metoprolol 25 mg oral tablet, extended release 25 mg, 1, tablet, By Mouth, Daily, # 90 tablet, Refills 4, Tot. Refills 4, Hard Stop 07/26/20 16:36:00 EDT, 04/27/20 16:36:00 EST, Route to Pharmacy Electronically, [facility]/pharmacy #1972, home delivery please, 180, cm, 04/08/20 13:32:00 EST, Height, 181.... Start Date: 04/27/20 Stop Date: 07/26/20 Status: Ordered nortriptyline 10 mg oral capsule 10 mg, 1, capsule, By Mouth, Daily, # 90 capsule, Refills 3, Tot. Refills 3, Maintenance, 06/26/20 17:28:00 EST, Route to Pharmacy Electronically, [facility], 180, cm, 06/26/20 14:13:00 EST, Height, 181.6, kg, 03/27/20 14:58:00 EST... Start Date: 06/26/20 Status: Ordered omeprazole 20 mg oral delayed release tablet 1 tablet = 20 mg, By Mouth, Daily, PRN gastroesophageal acid reflux, # 30 tablet, 1 Refills, Maintenance, 04/13/20 14:37:00 EST, CR Tablet, [facility]/pharmacy #1972, Partial fill upon patient request if [...] 06/26/20 17:25:00 EST, Route to Pharmacy Electronically, [facility], home delivery, 180, cm, 06/26/20 14:13:00 EST, Height, 181.6, kg, 03/27/20... Start Date: 06/26/20 Status: Ordered spironolactone 25 mg oral tablet 25 mg, 1, tablet, By Mouth, Daily, # 90 tablet, Refills 3, Tot. Refills 3, Hard Stop 07/26/20 16:35:00 EDT, 04/27/20 16:35:00 EST, Route to Pharmacy Electronically, [facility]/pharmacy #1972, home delivery please, 180, cm, 04/08/20 [...] consistent with a cyst on CT at [facility] 04/2019(Confirmed) 04/2019 Active Coronary artery [...] CT scan of the abdomen done at [facility] on 08-08-16 Social History Social History Type Response Smoking Status 10 or more cigarette s (1/2 pack or more)/day in last 30 days entered on: 05/14/20 Sex
--- OUTSIDE RECORDS SUMMARY | 2023-01-20 23:58 | XMS_ITS | Continuity of Care Document ---
Author Name Unknown Organization [facility] Address [address] [place] [address]- Care Team Providers Care Director Of Food And Nutrition Services Name Role Phone Bismark TORRES, Preet Hall Primary Care Physician [phone] Encounter [facility] Date(s): 07/28/21 - 08/27/[address] [address]- Allergies, Adverse Reactions, Alerts No Known Allergies [...] Given Patient Refuses [facility] 3Location History: [facility] 4Location History: [facility] Medications aspirin 81 mg oral delayed [...] 0 Refills, Maintenance, 06/09/21 12:34:00 EST, Tablet, [facility], Partial fill [...] 0 Refills, Maintenance, 06/09/21 12:34:00 EST, Cream, [facility], Partial fill [...] 11:03:00 EDT, Aerosol, Route to Pharmacy Electronically, [id number]... Start Date: 07/29/21 Status: Ordered torsemide 20 [...] consistent with a cyst on CT at [facility] 04/2019(Confirmed) 04/2019 Active Coronary artery [...] class I(Confirmed) Active Obstructive sleep apnea(Confirmed) Active .Veterinary Nurse: Zoltan Diaz [phone], [facility]. CPP(Confirmed) Active Post traumatic stress disord er (PTSD)(Confirmed) 1999 Active 1-Seen in CT scan of the abdomen done at [facility] on 08-08-16 Social History Social History Type Response Smoking Status 10 or more cigarette s (1/2 pack or more)/day in last 30 days; Interested in cessation: No; Patient wants NRT during admission No entered on: 06/03/21 Sex
--- OUTSIDE RECORDS SUMMARY | 2023-01-20 23:58 | XMS_ITS | Continuity of Care Document ---
Author Name Unknown Organization [facility] Address [address] [place] [address]- Care Team Providers Care Director Voice Name Role Phone Preet Sofia MD Primary Care Physician Encounter [facility] Date(s): 09/01/20 - 10/01/20 [facility]/[address] [address]- Allergies, Adverse Reactions, Alerts Substance Reaction Severity [...] Given Patient Refuses 1Location History: [facility] 2Location History: [facility] 3Location History: [facility] 4Location History: [facility] Medications acetaminophen 325 mg oral tablet 650 mg, 2, tablet, By Mouth, Every 6 hours, PRN, for 30 days, # 50 tablet, Refills 0, Tot. Refills 0, Acute 10/21/20 13:24:00 EDT, Pain , Moderate, 09/21/20 13:24:00 EDT, Route to Pharmacy Electronically, [facility], Partial fill upon pa... [...] Maintenance, 09/03/20 20:10:00 EDT,Route to Pharmacy Electronically, [facility], 180, cm, 09/03/20 9:24:00 EDT, Height, 172.7, kg, 08/28/20 4:44:00 EDT, Dry Weight Start Date: 09/03/20 Status: Ordered atorvastatin 40 mg oral tablet 1 tablet = 40 mg, By Mouth, Daily at bedtime, # 90 tablet, 4 Refills, Maintenance, 09/03/20 20:11:00 EDT, Tablet, [facility], 180, cm, 09/03/20 9:24:00 EDT, Height, 172.7, kg, 08/28/20 4:44:00 EDT, Dry Weight Start Date: 09/03/20 Status: Ordered carvedilol 3.125 mg oral tablet 3.125 mg, 1, tablet, By Mouth, 2 times a day, # 180 tablet, Refills 0, Tot. Refills 0, Maintenance,09/21/20 13:23:00 EDT, Route to Pharmacy Electronically, [facility], Partial fill upon patient request if the prescription is for a sched... Start Date: 09/21/20 Status: Ordered clopidogrel 75 mg oral tablet 75 mg, 1, tablet, By Mouth, Daily, # 90 tablet, Refills 3, Tot. Refills 3, Hard Stop 01/17/22 16:10:00 EDT, 01/22/21 16:10:00 EDT, Route to Pharmacy Electronically, [facility]/pharmacy #[id number], home delivery please, 180, cm, 04/08/20 13:32:00 EST, Height, 181.... Start Date: 01/22/21 Stop Date: 01/17/22 Status: Ordered Entresto 24 mg-26 mg oral tablet 1 tablet, By Mouth, 2 times a day, # 180 tablet, 0 Refills, Maintenance, 09/21/20 13:24:00 EDT, [facility], [facility] fill upon patient request if the prescription is for a schedule II opioid drug., 1 tablet By Mouth 2 times a day,... Start Date: 09/21/20 Status: Ordered FLUoxetine 20 mg oral capsule 20 mg, 1, capsule, By Mouth, Daily, # 90 capsule, Refills 4, Tot. Refills 4, Maintenance, 09/03/20 20:09:00 EDT, Route to Pharmacy Electronically, [facility], home delivery, 180, cm, 09/03/20 9:24:00 EDT, Height, 172.7, kg, ... Start Date: 09/03/20 Status: Ordered levothyroxine 0.05 mg oral tablet 1 tablet = 50 mcg, By Mouth, Daily, # 90 tablet, 4 Refills, Maintenance, 06/26/20 17:25:00 EST, Tablet, [facility], home delivery, 180, cm, 06/26/20 14:13:00 [...] 09/03/20 20:09:00 EDT, Route to Pharmacy Electronically, [facility], 180, cm, 09/03/20 9:24:00 EDT, Height, [...] 09/21/20 13:24:00 EDT, Route to Pharmacy Electronically, [facility] Tablet, Partial... Start Date: 09/21/20 Stop Date: 10/21/20 Status: Ordered spironolactone 25 mg oral tablet 25 mg, 1, tablet, By Mouth, Daily, # 90 tablet, Refills 3, Tot. Refills 3, Maintenance, 06/26/20 17:25:00 EST, Route to Pharmacy Electronically, [facility], home delivery, 180, cm, 06/26/20 14:13:00 EST, Height, 181.6, kg, 03/27/20... Start Date: 06/26/20 Status: Ordered torsemide 20 mg oral tablet 1 tablet = 20 mg, By Mouth, Daily, # 90 tablet, 0 Refills, Maintenance, 09/21/20 13:23:00 EDT, Tablet, [facility], Partial fill upon [...] consistent with a cyst on CT at [facility] 04/2019(Confirmed) 04/2019 Active Coronary artery [...] Morbid obesity(Confirmed) Active Obstructive sleep apnea(Confirmed) Active .Imaging Manager: Zoltan Diaz [phone], [facility]. CPP(Confirmed) Active Post traumatic stress disord er (PTSD)(Confirmed) 1999 Active 1-Seen in CT scan [facility] the abdomen done at [facility] on 08-08-16 Social History Social History Type Response Smoking Status 10 or more cigarette s (1/2 pack or more)/day in last 30 days; Other: [id number]; entered on: 09/03/20 Sex
--- OUTSIDE RECORDS SUMMARY | 2023-01-20 23:58 | XMS_ITS | Continuity of Care Document ---
Author Name Unknown Organization [facility] Address [address] [place] [address]- Care Team Providers Care Pile Trimmer Name Role Phone Preet Sofia MD Primary Care Physician Encounter [facility] Date(s): 10/18/22 - 11/17/22 [facility] [address]- Attending Physician: Alexis Daigle Admitting Physician: AdmtrAlexis [...] History: [facility] 2Location History: [facility] 3Location History: [facility] 4Location History: [facility] Medications aspirin [...] 3 Refills, Maintenance, 10/19/22 20:02:00 EDT, Tablet, [facility]/pharmacy #[id number], 180, cm, 10/19/22 4:49:00 EDT, [...] 10/19/22 20:05:00 EDT, Route to Pharmacy Electronically, [facility]/pharmacy #[id number], 180, cm, 10/19/22 4:49:00 EDT, Height, 181, kg, 09/26/22 14:48:00 EDT, Dry W... Start Date: 10/19/22 Status: Ordered Dilaudid 2 mg oral tablet See Instructions, PRN Pain , Severe, 1 tablet By Mouth every 4 hours up to 3x/day during daytime asneeded for severe pain. 7 day or more supply., # 21 tablet, 0 Refills, Maintenance, 11/10/22 20:43:00 EDT, Tablet, [facility]/pharmacy #[id number], Partial fill upo... Start Date: 11/10/22 Status: Ordered duloxetine 30 mg oral enteric coated capsule 1 capsule = 30 mg, By Mouth, Daily at bedtime, # 30 capsule, 1 Refills, Maintenance, 10/12/22 12:25:00 EDT, Capsule, [facility], Partial fill upon patient request if the prescription isfor a schedule II opioid drug., 180, cm, 10/12/22 1... Start Date: 10/12/22 Stop Date: 12/11/22 Status: Ordered Entresto 24 mg-26 mg oral tablet 1 tablet, By Mouth, 2 times a day, # 60 tablet, 5 Refills, Maintenance, 10/19/22 20:09:00 EDT, Tablet, [facility]/pharmacy #[id number], 1 tablet By Mouth 2 [...] 0 Refills, Maintenance, 06/09/21 12:34:00 EST, Tablet, [facility], Partial fill upon [...] 10/19/22 20:09:00 EDT, Route to Pharmacy Electronically, [facility]/pharmacy #[id number], 180, cm, 10/19/22 4:49:00 EDT, [...] 5 Refills, Maintenance, 10/19/22 20:12:00 EDT, Tablet, [facility]/pharmacy #[id number], 180, cm, 10/19/22 4:49:00 EDT, [...] consistent with a cyst on CT at [facility] 04/2019 Confirmed 04/2019 Active Coronary artery [...] Confirmed Active Obstructive sleep apnea Confirmed Active .Lineman Service Or Work Dispatcher: Lucita Segal [phone], [facility]. CPP Confirmed Active Post traumatic stress disorder (PTSD) Confirmed 1999 Active Severe obesity Confirmed Active 1-Seen in CT scan of the abdomen done at [facility] on 08-08-16 Social History Social History Type Response Smoking Status 10 or more cigarette s (1/2 pack or more)/day in last 30 days; Interested in cessation: No; Patient wants NRT during admission No entered on: 06/03/21 Sex Male Note * [place] TORRES, Preet Hall: REVIEW Event Display: [facility] Authored Date: Patient Care team information Care Team Personnel Name: Brenda Vanegas RN Position: S RN Member Role: Primary Care Nurse Name: Renae Rashid RN Position: [facility] RN Member Role: Primary Care Nurse Name: Lizbeth Reardon RN Position: [facility] RN Member Role: Primary Care Nurse Name: Brittny Griffin RN Position: [facility] RN Member Role: Primary Care Nurse Name: Phill Michelle Position: [facility] RN Dom Member Role: Primary Care Nurse Name: Rickey Cruz RN Position: [facility] RN Member Role: Primary Care Nurse Name: Brandee Bee RN Position: [facility] RN Member Role: Primary Care Nurse Name: Janie Gamez RN Position: [facility] RN Member Role: Primary Care Nurse Name: Jing Santiago RN Position: [facility] RN Member Role: Primary Care Nurse Name: Sven Bustos RN Position: [facility] RN Member Role: Primary Care Nurse Name: Sharron Schaefer RN Position: [facility] RN Member Role: Primary Care Nurse Name: Franca Luis LPN Position: [facility] RN Member Role: Primary Care Nurse Name: Sheryl Linda RN Position: [facility] RN Member Role: Primary Care Nurse Name: Zara Aldridge RN Position: [facility] RN Member Role: Primary Care Nurse Name: Preet Sofia MD Position: [facility] Physician - Primary Care Member Role: PCP Address: Address: [address] [place] [address] Name: Betsey Harvey RN Position: [facility] RN Member Role: Primary Care Nurse Name: Camila Cervantes RN Position: [facility] RN Member Role: Primary Care Nurse Name: Aruna Warren RN Position: [facility] RN Member Role: Primary Care Nurse Name: Naomi Kyle RN Position: [facility] RN Member Role: Primary Care Nurse Name: Pavan Espinoza RN Position: [facility] RN Member Role: Primary Care Nurse Name: Lynne Shah RN Position: [facility] RN Member Role: Primary Care Nurse Name: Naomi Mcadams RN Position: [facility] RN Member Role: Primary Care Nurse Name: Ashwini Larson RN Position: [facility] RN Member Role: Primary Care Nurse Name: Darren Ortega RN Position: [facility] RN Member Role: Primary Care Nurse Name: Lorraine Good RN Position: [facility] RN Member Role: Primary Care Nurse Name: Mohan Quijano RN Position: [facility] RN Member Role: Primary Care Nurse Name: Shaina Nagy RN Position: [facility] RN Member Role: Primary Care Nurse Name: Sarah Gordon RN Position: [facility] Onco RN Member Role: Primary Care Nurse Name: Catalina Cook RN Position: [facility] RN Member Role: Primary Care Nurse Name: Sweta Lang RN Position: [facility] RN Member Role: Primary Care Nurse Name: Kely Morton RN Position: [facility] RN Member Role: Primary Care Nurse Care Team Related Persons Name: ANA MARIA DIAN Address: [place] [address] Name: KT LANDEROS Address: [place] [address] Name: TAE QUIROZ Address: home UNKNOWN [facility]
--- OUTSIDE RECORDS SUMMARY | 2023-01-20 23:58 | XMS_ITS | Continuity of Care Document ---
Author Name Unknown Organization [facility] Address [address] [place] [address]- Care Team Providers Care Armature [employer] Name Role Phone Preet Sofia MD Primary Care Physician Encounter [facility] Date(s): 05/14/20 - 06/13/20 [facility] [address] [place] [address]- Attending Physician: Admgm, Alexis Admitting Physician: AdmtrAlexis [...] 01/22/21 16:35:00 EDT, Route to Pharmacy Electronically, [facility]/pharmacy #[id number], home delivery please, 180, cm, 04/08/20 13:32:00 EST, Height, 181.6, kg, 03/27/20 14:5... Start Date: 01/22/21 Stop Date: 01/17/22 Status: Ordered aspirin 81 mg oral delayed release tablet 81 mg, 1, tablet, By Mouth, Daily, for 30 days, # 30 tablet, Refills 11, Tot. Refills 11, Hard Stop01/22/21 16:35:00 EDT, 01/28/20 16:35:00 EDT, Route to Pharmacy Electronically, [facility], 180.3, cm, 01/28/20 12:32:00 EDT, Height, 168... Start Date: 01/28/20 Stop Date: 01/22/21 Status: Ordered atorvastatin 40 mg oral tablet 1 tablet = 40 mg, By Mouth, Daily at bedtime, # 90 tablet, 3 Refills, Maintenance, 04/27/20 16:36:00 EST, Tablet, [facility]/pharmacy #1972, home delivery please, 180, cm, 04/08/20 13:32:00 EST, Height, 181.6, kg, 03/27/20 14:58:00 EST, Dry Weight Start Date: 04/27/20 Stop Date: 07/26/20 Status: Ordered clopidogrel 75 mg oral tablet 75 mg, 1, tablet, By Mouth, Daily, # 90 tablet, Refills 3, Tot. Refills 3, Maintenance, 01/22/21 16:10:00 EDT, Route to Pharmacy Electronically, [facility]/pharmacy #1972, home delivery please, 180, cm, 04/08/20 13:32:00 EST, Height, 181.6, kg, 03/27/20 14:5... Start Date: 01/22/21 Stop Date: 01/17/22 Status: Ordered clopidogrel 75 mg oral tablet 75 mg, 1, tablet, By Mouth, Daily, for 30 days, # 30 tablet, Refills 11, Tot. Refills 11, Hard Stop01/22/21 16:10:00 EDT, 01/28/20 16:10:00 EDT, Route to Pharmacy Electronically, [facility], 180.3, cm, 01/28/20 12:32:00 [...] 05/27/20 16:36:00 EST, Route to Pharmacy Electronically, [facility]/pharmacy #1972, home delivery please, 180, cm, 04/08/20 13:32:00 EST, Height, 181.6, kg, ... Start Date: 05/27/20 Stop Date: 09/24/20 Status: Ordered levothyroxine 0.05 mg oral tablet 1 tablet = 50 mcg, By Mouth, Daily, # 90 tablet, 4 Refills, Maintenance, 04/13/20 14:28:00 EST, Tablet, [facility]1972, home delivery please, 180, cm, 04/08/20 13:32:00 EST, Height, 181.6, kg, 03/27/20 14:58:00 EST, Dry Weight Start Date: 04/13/20 Stop Date: 06/12/20 Status: Ordered lisinopril 5 mg oral tablet 2.5 mg, 0.5, tablet, By Mouth, Daily, # 15 tablet, Refills 2, Tot. Refills 2, Maintenance, 04/27/2115:12:00 EST, Route to Pharmacy Electronically, [facility]1972, home delivery please, 180, cm, 04/08/20 13:32:00 EST, Height, 181.6, kg, 03/27/20 1... Start Date: 04/27/20 Stop Date: 07/26/20 Status: Ordered metoprolol 25 mg oral tablet, extended release 25 mg, 1, tablet, By Mouth, Daily, # 90 tablet, Refills 4, Tot. Refills 4, Maintenance, 04/27/20 16:36:00 EST, Route to Pharmacy Electronically, [facility]/pharmacy #1972, home delivery please, 180, cm, 04/08/20 13:32:00 EST, Height, 181.6, kg, 03/27/20 14:5... Start Date: 04/27/20 Stop Date: 07/26/20 Status: Ordered omeprazole 20 mg oral delayed release tablet 1 tablet = 20 mg, By Mouth, Daily, PRN gastroesophageal acid reflux, # 30 tablet, 1 Refills, Maintenance, 04/13/20 14:37:00 EST, CR Tablet, [facility]/pharmacy #1972, Partial fill upon patient request if [...] 04/27/20 16:35:00 EST, Route to Pharmacy Electronically, [facility]/pharmacy #1972, home delivery please, 180, cm, 04/08/20 [...] consistent with a cyst on CT at [facility] 04/2019(Confirmed) 04/2019 Active Coronary artery [...] CT scan of the abdomen done at [facility] on 08-08-16 Social History Social History Type Response Smoking Status 10 or more cigarette s (1/2 pack or more)/day in last 30 days entered on: 05/14/20 Sex
--- OUTSIDE RECORDS SUMMARY | 2023-01-20 23:58 | XMS_ITS | Continuity of Care Document ---
Author Name Unknown Organization [facility] Address [address] [place] [address]- Care Team Providers Care Monkey Trainer Name Role Phone Preet Sofia MD Primary Care Physician Encounter [facility] Date(s): 12/21/22 - 12/21/[address] [address]- Encounter Diagnosis Diabetic foot infection(Final) - 12/21/22 Discharge Disposition: Transferred to [facility]-term general hospit Attending Physician: Panfilo Multani DO Admitting Physician: Panfilo Multani DO Referring Physician: Not on Staff, Referring [...] 4 02/27/10 Recorded 1Location History: [facility] 2Location History: [facility] 3Location History: [facility] 4Location History: [facility] Medications aspirin 81 mg oral delayed release tablet 1 tablet = 81 mg, By Mouth, Daily, # 90 tablet, 3 Refills, Maintenance, 12/10/22 1:31:00 EDT, CR Tablet, [facility]/pharmacy #[id number], 178, cm, 11/22/22 18:01:00 EDT, Height, 164.9, kg, 11/18/22 18:49:00 EDT, Dry Weight Start Date: 12/10/22 Status: Ordered atorvastatin 80 mg oral tablet 1 tablet = 80 mg, By Mouth, Daily, # 30 tablet, 11 Refills, Maintenance, 12/22/22 14:06:00 EDT, Tablet, [facility]/pharmacy #[id number], 178, cm, 11/22/22 18:01:00 EDT, Height, [...] 12/22/22 14:14:00 EDT, Route to Pharmacy Electronically, [facility]/pharmacy #[id number], 178, cm, 11/22/22 18:01:00 EDT, Height, 164.9, kg, 11/18/22 18:49:00 EDT, . Start Date: 12/22/22 Status: Ordered Dilaudid 2 mg oral tablet 2 mg, Tablet, By Mouth, Once, STAT, 12/21/22 11:07:00 EDT, Stop date 12/21/22 11:07:00 EDT Start Date: 12/21/22 Stop Date: 12/21/22 Status: Completed duloxetine 30 mg oral enteric [...] EDT, Compound Start Date: 10/12/22 Status: Ordered Keflex Capsule 500 mg, By Mouth, Every 6 hours, Maintenance, 12/21/22 17:28:00 EDT Start Date: 12/21/22 Status: Ordered levothyroxine 0.2 mg oral tablet 1 tablet = 200 mcg, By Mouth, Daily, # 30 tablet, 11 Refills, Maintenance, 03/22/23 14:07:00 EST, Tablet, [id number], 178, cm, 11/22/22 18:01:00 EDT, Height, 164.9, kg, 11/18/22 18:49:00 EDT,Dry Weight Start Date: 03/22/23 Stop Date: 03/16/24 Status: Ordered MiraLax oral powder for reconstitution = 17 Gm, By Mouth, Daily, PRN Constipation, dissolve in water before taking, # 527 Gm, 1 Refills, Maintenance, 10/19/22 20:08:00 EDT, REC Powder, [facility]/pharmacy #[id number], 17 Gm By Mouth Daily,PRN:Constipation,Instr:dissolve in water before taking, 180, cm,... Start Date: 10/19/22 Status: Ordered Miscellaneous Rx 0 Refills, Maintenance, [facility], 12/21/22 17:28:00 EDT Start Date: 12/21/22 Status: Ordered nitroglycerin 0.4 mg sublingual tablet 1 tablet = 0.4 mg, Sublingual, Every 5 minutes, PRN Chest Pain, # 100 tablet, 0 Refills, Maintenance, 06/09/21 12:34:00 EST, Tablet, [facility], Partial fill upon patient request [...] 14:06:00 EDT, Aerosol, Route to Pharmacy Electronically, [id number]... Start Date: 11/22/22 Status: Ordered torsemide 20 mg oral tablet 1 tablet = 20 mg, By Mouth, 2 times a day, # 60 tablet, 5 Refills, Maintenance, 12/22/22 14:08:00 EDT, Tablet, [facility]/pharmacy #[id number], 178, cm, 11/22/22 18:01:00 EDT, Height, [...] consistent with a cyst on CT at [facility] 04/2019 Confirmed 04/2019 Active Coronary artery disease, [...] Confirmed Active Obstructive sleep apnea Confirmed Active .Spiritual Minister: Lucita Segal [phone], [facility]. CPP Confirmed Active Post traumatic stress disorder (PTSD) Confirmed 1999 Active Pulmonary embolus most branches of R lung, Dx at [place], [place] on 11/28/22. L popliteal & peroneal DVT 11/18/22 Confirmed Active Severe obesity Confirmed Active 1-Seen in CT scan of the abdomen done at [facility] on 08-08-16 Results Radiology Reports * Exam Date Time Procedure Performing Provider Status 12/21/22 7:27 AM Chest 2 Views Frontal and Lat Arnulfo , Yasmine; Auth (Verified) Notes: (Chest 2 Views Frontal and Lat) Reason For Exam: Chest Pain;Other: RESULT: Chest 2 Views Frontal and Lat Examination: Chest performed on 12/21/2022. History: Shortness of breath. Chest pain. Findings: Frontal and lateral views of the chest are compared to a prior study dated 12/16/2022. There is stable cardiomegaly. Linear scar within the right lower lobe is noted. The osseous and soft tissue structures are unremarkable. Impression: There is no acute cardiopulmonary disease. Stable cardiomegaly. WSN: [id number] Ordering Physician: Lizbeth Thompson Dictated By: Delaney Baer MD Dictated Date/Time: 12/21/22 7:43 am Reviewed By: Delaney Baer MD Signed By: Delaney Baer MD Signed Date/Time: 12/21/22 7:43 am Transcribed By: SHANNA Transcribed Date/Time: 12/21/22 7:42 am Vital Signs Most recent to oldest [Reference Range]: 1 2 3 Height 180 cm (12/21/22 4:37 AM) Weight 156.9 kg (12/21/22 4:37 AM) Oxygen Saturation [94-100 %] 98 % (12/21/22 3:45 PM) 98 % (12/21/22 12:05 PM) 100 % (12/21/22 7:47 AM) Pulse Rate [55-90 bpm] 89 bpm (12/21/22 3:45 PM) 81 bpm (12/21/22 12:05 PM) 75 bpm (12/21/22 7:47 AM) Blood Pressure [90-138/55-84 mm Hg] 135/84mm Hg (12/21/22 3:45 PM) 131/86mm Hg (12/21/22 12:05 PM) 136/90mm Hg (12/21/22 7:47 AM) Respiratory Rate [16-30 br/min] 22 br/min (12/21/22 3:45 PM) 21 br/min (12/21/22 12:05 PM) 22 br/min (12/21/22 11:33 AM) Temperature [96.8-100.4 DegF] 98.5 DegF (12/21/22 3:45 PM) 98.4 DegF (12/21/22 12:05 PM) 98.6 DegF (12/21/22 7:47 AM) Liters per Minute 2 L/min (12/21/22 3:45 PM) 2 L/min (12/21/22 12:05 PM) 4 L/min (12/21/22 4:37 AM) Mode of Delivery (Oxygen) Room air (12/21/22 3:45 PM) Nasal cannula (12/21/22 12:05 PM) Room air (12/21/22 7:47 AM) Blood pressure sites Arm, right (12/21/22 3:45 PM) Arm, right (12/21/22 12:05 PM) Arm, right (12/21/22 7:47 AM) Temperature Route Oral (12/21/22 3:45 PM) Axillary (12/21/22 12:05 PM) Oral (12/21/22 7:47 AM) Dry Weight 156.9 kg (12/21/22 4:37 AM) Weight Obtained Via Patient/family stated (12/21/22 4:37 AM) Social History Social History Type Response Smoking Status 10 or more cigarette s (1/2 pack or more)/day in last 30 days; Interested in cessation: No; Patient wants NRT during admission No entered on: 06/03/21 Sex Male EKG study * Event Display: ECG 12-Lead Authored Date: Please click on pdf link to open report * Event Display: ECG 12-Lead Authored Date: Ventricular Rate: 81 BPM Atrial Rate: 81 BPM P-R Interval: 190 ms QRS Duration: 146 ms Q-T Interval: 416 ms QTC Calculation(Bazett): 483 ms P [place]: 6 degrees R [place]: -51 degrees T [place]: 80 degrees Normal sinus rhythm Left axis deviation Left ventricular hypertrophy with QRS widening ( R in aVL , Joseluis product ) Cannot exclude Anteroseptal infarct , age undetermined Abnormal ECG When compared with ECG of 16-DEC-2022 00:14, Borderline criteria for Lateral infarct are no longer Present Confirmed by ARSLAN FLOWERS ([id number]) on 12/21/2022 6:54:34 AM [place]: ARSLAN FLOWERS Patient Care team information Care Team Personnel Name: Brenda Vanegas RN Position: S RN Member Role: Primary Care Nurse Name: Renae Rashid RN Position: S RN Member Role: Primary Care Nurse Name: Lizbeth Reardon RN Position: [facility] RN Member Role: Primary Care Nurse Name: Camila Burris RN Position: [facility] RN Member Role: Primary Care Nurse Name: Brittny Griffin RN Position: [facility] RN Member Role: Primary Care Nurse Name: Phill Michelle Position: [facility] RN Supv Member Role: Primary Care Nurse Name: Rickey Cruz RN Position: [facility] RN Member Role: Primary Care Nurse Name: Brandee Bee RN Position: [facility] RN Member Role: Primary Care Nurse Name: Janie Gamez RN Position: [facility] RN Member Role: Primary Care Nurse Name: Toby Trotter RN Position: [facility] RN Supv Member Role: Primary Care Nurse Name: Jing Santiago RN Position: [facility] RN Member Role: Primary Care Nurse Name: Sven Bustos RN Position: [facility] RN Member Role: Primary Care Nurse Name: Sharron Schaefer RN Position: [facility] RN Member Role: Primary Care Nurse Name: Franca Lius LPN Position: [facility] RN Member Role: Primary Care Nurse Name: Sheryl Linda RN Position: [facility] RN Member Role: Primary Care Nurse Name: Zara Aldridge RN Position: [facility] RN Member Role: Primary Care Nurse Name: Preet Sofia MD Position: [facility] Physician - Primary Care Member Role: PCP Address: Address: [address] [place] [address] Name: Nanci Roman Position: [facility] RN Member Role: Primary Care Nurse Name: Betsey Harvey RN Position: [facility] RN Member Role: Primary Care Nurse Name: Camila Cervantes RN Position: [facility] RN Member Role: Primary Care Nurse Name: Aruna Warren RN Position: [facility] RN Member Role: Primary Care Nurse Name: Naomi Kyle RN Position: [facility] RN Member Role: Primary Care Nurse Name: Pavan Espinoza RN Position: [facility] RN Member Role: Primary Care Nurse Name: Lynne Shah RN Position: [facility] RN Member Role: Primary Care Nurse Name: Ashwini Larson RN Position: [facility] RN Member Role: Primary Care Nurse Name: Lorraine Good RN Position: [facility] RN Member Role: Primary Care Nurse Name: Mohan Quijano RN Position: [facility] RN Member Role: Primary Care Nurse Name: Shaina Nagy RN Position: [facility] RN Member Role: Primary Care Nurse Name: Sarah Gordon RN Position: [facility] Onco RN Member Role: Primary Care Nurse Name: Catalina Cook RN Position: [facility] RN Member Role: Primary Care Nurse Name: Yun Wadsworth RN Position: [facility] RN Member Role: Primary Care Nurse Name: Sweta Lang RN Position: [facility] RN Member Role: Primary Care Nurse Name: Kely Morton RN Position: [facility] RN Member Role: Primary Care Nurse Name: *[facility], ED Attending Position: [facility] ED Attendings Patient Name: Debbie Ocampo Position: [facility] ED TA [facility] Name: Panfilo Multani DO Position: [facility] Resident Member Role: Admitting Physician Address: Address: [address] [place] [address] Emergency Medicine [place], [place] [address] Name: Sly Adams RN Position: [facility] ED RN W/OE and Tasks Member Role: Patient Care Provider Care Team Related Persons Name: DIAN RODGERS Address: [place] [address] Name: KT LANDEROS Address: [place] [address] Name: TAE QUIROZ Address: home [place] [id number]
--- OUTSIDE RECORDS SUMMARY | 2023-01-20 23:58 | XMS_ITS | Continuity of Care Document ---
Author Name Unknown Organization [facility] Address [address] [place] [address]- Care Team Providers Care Forming Process Worker Name Role Phone Preet Sofia MD Primary Care Physician Encounter [facility] Date(s): 12/29/21 - 01/28/22 [facility] [address]- Allergies, Adverse Reactions, Alerts No Known Allergies [...] Refuses [facility] 2Location History: [facility] 3Location [...] Daily, # 28 tablet, 1 Refills, [facility], 180, cm, 11/03/21 2:14:00 EDT, Height, [...] 11 Refills, Maintenance, 07/02/21 18:28:00 EST, Tablet, [facility], 180, cm, 06/16/21 15:51:00 EST, [...] 0 Refills, Maintenance, 06/09/21 12:34:00 EST, Tablet, [facility], Partial fill upon [...] 11:03:00 EDT, Aerosol, Route to Pharmacy Electronically, [id number]... Start Date: 07/29/21 Status: Ordered torsemide 20 mg oral tablet 2 tablet = 40 mg, By Mouth, 2 times a day, # 120 tablet, 5 Refills, Maintenance, 09/23/21 16:07:00 EDT, Tablet, [facility], 180, cm, 08/26/21 12:41:00 EDT, Height, 175.7, kg, 226:22:00 EDT, Dry Weight Start Date: 09/23/21 Status: [...] Date: 11/18/21 Status: Ordered Problem List Condition Confirmation Course [...] consistent with a cyst on CT at [facility] 04/2019 Confirmed 04/2019 Active Coronary artery [...] Confirmed Active Obstructive sleep apnea Confirmed Active .Psychology Clinician: Lucita Segal [phone], [facility]. CPP Confirmed Active Post traumatic stress disorder (PTSD) Confirmed 1999 Active Severe obesity Confirmed Active 1-Seen in CT scan of the abdomen done at [facility] on 08-08-16 Social History Social History Type Response Smoking Status 10 or more cigarette s (1/2 pack or more)/day in last 30 days; Interested in cessation: No; Patient wants NRT during admission No entered on: 06/03/21 Sex Patient Care team information Personnel Name: Preet Sofia MD Address: Address: [address] [place] [id number]
--- OUTSIDE RECORDS SUMMARY | 2023-01-20 23:58 | XMS_ITS | Continuity of Care Document ---
Author Name Unknown Organization [facility] ter Address [address] [place] [id number] Care Team Providers Care Survey Operations Director Name Role Phone Preet Sofia MD Primary Care Physician Encounter [facility] [place] Date(s): 08/06/21 - 08/06/[address] [id number]- Discharge Disposition: A-D/C Home Attending Physician: Homa Mercer MD Admitting Physician: Geo Buchanan MD Referring Physician: Not on Staff, Referring [...] patient request... Start Date: 08/03/21 Status: Ordered carvedilol 6.25 mg oral tablet 6.25 mg, Tablet, By Mouth, 08/06/21 9:03:00 EDT Start Date: 08/06/21 Stop Date: 08/06/21 Status: Completed diclofenac 1% topical gel = [...] 0 Refills, Maintenance, 06/09/21 12:34:00 EST, Tablet, [facility], Partial fill upon patient request [...] 0 Refills, Maintenance, 06/09/21 12:34:00 EST, Cream, [facility], Partial fill upon patient request [...] 11:03:00 EDT, Aerosol, Route to Pharmacy Electronically, [id number]... Start Date: 07/29/21 Status: Ordered torsemide 20 mg oral tablet 2 tablet = 40 mg, By Mouth, 2 times a day, # 120 tablet, 3 Refills, Maintenance, 07/02/21 18:24:00 EST, Tablet, [facility], 180, cm, 06/16/21 15:51:00 [...] consistent with a cyst on CT at [facility] 04/2019(Confirmed) 04/2019 Active Coronary artery [...] Morbid obesity(Confirmed) Active Obstructive sleep apnea(Confirmed) Active .Enterprise Application Developer: Zoltan Diaz [phone], On License Of [facility]. CPP(Confirmed) Active Post traumatic stress disord er (PTSD)(Confirmed) 1999 Active Severe obesity(Confirmed) Active 1-Seen in CT scan of the abdomen done at [facility] on 08-08-16 Results Radiology Reports * Exam Date Time Procedure Performing Provider Status 08/06/21 12:58 AM Chest Portable Temitope No; Shasha (Verified) Notes: (Chest Portable) Reason For Exam: Shortness of Breath RESULT: Chest Portable Chest Portable upright at 12:53 AM Reason: Shortness of Breath; Clinical Question(s): CHF COMPARISON: Multiple priors, the most recent 06/25/2021 FINDINGS: LINES AND TUBES: None. LUNGS AND PLEURA: There is poor penetration of the retrocardiac portion of the left lung with poor visualization of the left hemidiaphragm, unchanged. The left costophrenic angle has been excluded from the imaged area. Lungs are otherwise clear with normal vascularity. Possible left pleural effusion. No right pleural effusion. No pneumothorax. HEART, MEDIASTINUM AND CAROLA: Stable cardiomegaly. Normal upper mediastinal and hilar contour. BONES AND SOFT TISSUES: No acute abnormality. IMPRESSION: Stable cardiomegaly. Poor visualization of the lower left lung. Atelectasis/infiltrate and/or left pleural effusion cannot be excluded. WSN: [id number] Ordering Physician: Solis Warren Dictated By: Toby Aldridge MD Dictated Date/Time: 08/06/21 7:51 am Reviewed By: Toby Aldridge MD Signed By: Toby Aldridge MD Signed Date/Time: 08/06/21 7:51 am Transcribed By: SHANNA Transcribed Date/Time: 08/06/21 7:48 am Vital Signs Most recent to oldest [Reference Range]: 1 2 3 Oxygen Saturation [94-100 %] 94 % (08/06/21 7:28 AM) 95 % (08/06/21 5:26 AM) 97 % (08/06/21 4:11 AM) Pulse Rate [55-90 bpm] 75 bpm (08/06/21 10:29 AM) 83 bpm (08/06/21 7:28 AM) 75 bpm (08/06/21 5:26 AM) Blood Pressure [90-138/55-84 mm Hg] 182/101mm Hg *H* (08/06/21 10:29 AM) 152/88mm Hg *H* (08/06/21 7:28 AM) 147/84mm Hg *H* (08/06/21 5:26 AM) Respiratory Rate [16-30 br/min] 18 br/min (08/06/21 7:28 AM) 18 br/min (08/06/21 5:26 AM) 18 br/min (08/06/21 4:11 AM) Temperature [96.8-100.4 DegF] 98.0 DegF (08/06/21 12:53 AM) Liters per Minute 4 L/min (08/06/21 12:53 AM) Mode of Delivery (Oxygen) Room air (08/06/21 7:28 AM) Room air (08/06/21 5:26 AM) Room air (08/06/21 4:11 AM) Blood pressure sites Arm, left (08/06/21 7:28 AM) Arm, left (08/06/21 5:26 AM) Arm, left (08/06/21 4:11 AM) Temperature Route Oral (08/06/21 12:53 AM) Social History Social History Type Response Smoking Status 10 or more cigarette s (1/2 pack or more)/day in last 30 days; Interested in cessation: No; Patient wants NRT during admission No entered on: 06/03/21 Sex
--- OUTSIDE RECORDS SUMMARY | 2023-01-20 23:58 | XMS_ITS | Continuity of Care Document ---
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 09/26/2022 11:42 Abs. NRBC 0.0 k/mm3 ()?? 09/26/2022 11:42 Abs. Neut 7.9 k/mm3 (High)?? 09/26/2022 11:42 Abs. Lymph 1.1 k/mm3 ()?? 09/26/2022 11:42 Abs. Starke 0.9 k/mm3 ()?? 09/26/2022 11:42 Abs. Eo 0.4 k/mm3 ()?? 09/26/2022 11:42 Abs. Baso 0.0 k/mm3 ()?? 09/26/2022 11:42 Neut % 76.0 % ()?? 09/26/2022 11:42 Lymph % 11.0 % (Low)?? 09/26/2022 11:42 Starke % 8.3 % ()?? 09/26/2022 11:42 Eos % 4.1 % ()?? 09/26/2022 11:42 Baso % 0.2 % ()?? 09/26/2022 11:42 Hemoglobin (POC) POC Cartridge 12.6 Gm/dL (Low)?? 09/26/2022 11:32 Hematocrit (POC) POC Cartridge 37 % (Low)?? 09/26/2022 11:32 Imm Gran 0.4 % ()?? 09/26/2022 11:42 Abs. Imm Gran 0.0 k/mm3 ()?? 09/26/2022 11:42 ?? BLOOD GAS pH Venous (POC) POC Cartridge 7.49 (High)?? 09/26/2022 11:32 pCO2 Venous (POC) POC Cartridge 43.1 mm Hg ()?? 09/26/2022 11:32 pO2 Venous (POC) POC Cartridge 14 mm Hg (Low)?? 09/26/2022 11:32 Est Bicarbonate (POC) POC Cartridge 32.7 mmol/L (High)?? 09/26/2022 11:32 % O2 Sat Venous (POC) POC Cartridge 20 ()?? 09/26/2022 11:32 Base Excess (POC) POC Cartridge 9 ()?? 09/26/2022 11:32 Specimen Type - Blood Gas VENOUS ()?? 09/26/2022 11:32 ?? CARDIAC Nt-Probnp 3072 pg/mL (High)?? 09/26/2022 11:45 High Sensitivity Troponin (HSTnT) 83 ng/L (Critical)?? 09/26/2022 11:45 ?? CHEM GENERAL Sodium 141 mmol/L ()?? 09/26/2022 11:45 Potassium 3.9 mmol/L ()?? 09/26/2022 11:45 Chloride 99 mmol/L ()?? 09/26/2022 11:45 Bicarbonate Level 29 mmol/L ()?? 09/26/2022 11:45 Anion Gap 13 ()?? 09/26/2022 11:45 Sodium (POC) POC Cartridge 140 mmol/L ()?? 09/26/2022 11:32 Potassium (POC) POC Cartridge 3.7 mmol/L ()?? 09/26/2022 11:32 Glucose Level 128 mg/dL (High)?? 09/26/2022 11:45 Glucose (POC) POC Cartridge 134 (High)?? 09/26/2022 11:32 Glucose, POC 141 mg/dL (High)?? 09/26/2022 11:19 BUN 17 mg/dL ()?? 09/26/2022 11:45 Creatinine-Blood 0.8 mg/dL ()?? 09/26/2022 11:45 Estimated GFR Creatinine 109 ML/MIN/1.73 M2 ()?? 09/26/2022 11:45 Calcium 9.5 mg/dL ()?? 09/26/2022 11:45 Ionized Calcium (POC) POC Cartridge 1.15 mmol/L ()?? 09/26/2022 11:32 Protein, Total 6.6 Gm/dL ()?? 09/26/2022 11:45 Albumin 3.8 Gm/dL ()?? 09/26/2022 11:45 AG Ratio 1.4 ()?? 09/26/2022 11:45 Alkaline Phosphatase 54 units/L ()?? 09/26/2022 11:45 AST (SGOT) 17 units/L ()?? 09/26/2022 11:45 ALT (SGPT) 16 units/L ()?? 09/26/2022 11:45 Bilirubin, Total 0.3 mg/dL ()?? 09/26/2022 11:45 ?? ENDOCRINE/TUMOR MARKER TSH 2.22 uIU/mL ()?? 09/26/2022 11:45 ?? URINE OTHER Est Creatinine Clearance 117.18 mL/min ()?? 09/26/2022 15:00 ?? VIROLOGY COVID-19 by RT-PCR NEGATIVE ()?? 09/26/2022 11:47 ? EKG study * Event Display: ECG 12-Lead Authored Date: Please click on pdf link to open report * Event Display: ECG 12-Lead Authored Date: Ventricular Rate: 100 BPM Atrial Rate: 100 BPM P-R Interval: 170 ms QRS Duration: 120 ms Q-T Interval: 392 ms QTC Calculation(Bazett): 505 ms P Ralph: 47 degrees R Ralph: -34 degrees T Ralph: 47 degrees Normal sinus rhythm Left axis deviation Left ventricular hypertrophy with QRS widening ( R in aVL , Joseluis product ) Cannot rule out Septal infarct (cited on or before 24-JAN-2020) Abnormal ECG When compared with ECG of 11-DEC-2021 03:30, Questionable change in initial forces of Anterior leads Confirmed by RODRICK FUNES MD ([id number]) on 09/26/2022 6:59:58 PM [place]: RODRICK FUNES MD Cardiology * Event Display: Cardiac Rhythm Strips Authored Date: Hospital Progress note * Corrie Self MD: PERFORM Event Display: Progress Note Hospital Authored Date: Patient: ??HOULTON, JAY ? Age:??52 Years?Sex:??Male?:??1970?? Subjective ?? No significant overnight event Discussed with department store general manager Plan for possible discharge??this week??to home. ??partnership development manager is trying to arrange for??equipments. ?? Review of Systems Rest of the system negative Objective Measurements?? Height: 180 cm (10/11/22) Weight: 139.2 kg (10/08/22) Dry Weight: 181 kg (09/26/22) Body Mass Index:??42.96 kg/m2??Critical (10/08/22) ? Vital Signs?? Temperature: 98.2 DegF (10/10/22 19:27:00) Temperature Route: Oral (10/10/22 19:27:00) Pulse Rate:??110 bpm??High (10/11/22 09:44:00) Respiratory Rate: 18 br/min (10/11/22 07:37:00) Systolic Blood Pressure: 120 mm Hg (10/11/22 09:44:00) Diastolic Blood Pressure: 83 mm Hg (10/11/22 09:44:00) Blood pressure sites: Arm, left (10/11/22 09:44:00) Mean Arterial Pressure: 95 mm Hg (10/11/22 09:44:00) Pulse Pressure: 37 mm Hg (10/11/22 09:44:00) Oxygen Saturation: 98 % (10/11/22 04:55:00) Mode of Delivery (Oxygen): Room air (10/11/22 04:55:00) Early Warning Score: 1 (10/11/22 09:50:40) ? Physical Exam Results Abnormal Labs No lab data available. ?? Assessment/Plan ?? 52-year-old male with a past medical history of CAD with an anterior STEMI in 2020 status post KATARINA to proximal LAD, heart failure reduced ejection fraction, ischemic cardiomyopathy, HFrEF 10-15% (2021), chronic kidney disease, hypertension, hyperlipidemia, , hypothyroidism, morbid obesity, IONA, nonc ompliant with CPAP, tobacco use, active marijuana and recent respiratory arrest and month-long intubation after amphetamine overdose who presented to [facility] with complaints of chest pain. The patient has a history of multiple ER admissions for atypical chest pain and requesting Dilaudid and then he leaves AGAINST MEDICAL ADVICE. He was previously admitted about a week ago and left AGAINST MEDICAL ADVICE on September 23. Seen by cardiology this time???no need for inpatient work-up??and have arranged for outpatient follow-up Regarding his bilateral foot pain???patient was seen by??pain service??and at this time has been started on duloxetine ?? # Chest Pain: # Hypertension: # Chronic systolic and diastolic heart failure # History of CAD s/p PCI/KATARINA Cardiology input appreciated, Does not need any further work-up Troponin elevated however lower than previous discharge troponin Patient moved to [place] and recently returned to [place].?? Plan ASA, Atorvastatin, Carvedilol, and Entresto. Torsemide??increased to prior dose of 40mg bid Continue Spironolactone Outpt cardiology follow-up already scheduled Labs to check basic metabolic panel in 1 to 2 weeks ?? # Bilateral foot pain ??pulses are intact bilaterally, no ulceration seen on the skin ??x-ray of foot bilaterally shows mild arthritic changes in right foot ??Seen by acute pain service, recommended Lyrica 150 twice daily - patient states this is not helping so was d/taylor ??Acute pain service also recommended neurology, PMR evaluation ??Discussed with neurology, as per them no need for inpatient evaluation ??Seen by PMR before, PMR recommendations double upright AFOs with orthopedic shoes, due to his history of obesity, fluctuating edema and that he liked this type of AFO. ??Meanwhile, patient has high risk of falls and will benefit from a wheelchair. The patient also isobese and the walker that he has in the room is very narrow. He will benefit from a wide, heavy frame walker for ambulation.?For polyneuropathy, patient may benefit from EMG and nerve conduction study as outpatient to ruleout possible treatable causes of polyneuropathy. ??The pain does seem to be very neuropathic in description Plan: - Trial duloxetine 30mg qhs - counseled to seek help if any thoughts of self harm - IV Dilaudid has been discontinued now???continue with oral Dilaudid??and will need to be titrateddown - PT states patient needs specially fitted AFOs, they have discussed with OT who will coordinate - Needs outpatient neurology Eval, EMG, nerve conduction ?? # Hypothyroidism:-TSH normal. ??Levothyroxine ?? # Tobacco Use:-Patient smokes a pack per day. He was counseled on quitting. He declined Nicotine patch. ?#Swelling/prepatellar bursitis: it was discussed with ortho 10/05 - bursal swelling should not affect AFO placement. can follow up with ortho as outpatient ? # Hyperlipidemia??? Continue home statin ?? # Morbidly obese: Outpatient follow-up ? # CKD III -??Creatinine stable at 0.8 ? # H/o Substance abuse : Utox negative ?? DVT prophylaxis???heparin subcu CODE STATUS???full ?? At this time is medically ready for discharge??needs rehab as per PT but no accepting facility ? * Corrie Self MD: PERFORM Event Display: Progress Note Hospital Authored Date: Patient: ??JAY MONTERO ? Age:??52 Years?Sex:??Male?:??1970?? Subjective ?? No significant overnight event?? intermittently refusing torsemide ?? At this time medically ready for discharge for the last several days??but no available rehab??so plan is for him to get PT while he is here??and may be discharge??this week ? Review of Systems ?? Rest of the review of system negative Objective Measurements?? Height: 180 cm (10/10/22) Weight: 139.2 kg (10/08/22) Dry Weight: 181 kg (09/26/22) Body Mass Index:??42.96 kg/m2??Critical (10/08/22) ? Vital Signs?? Temperature: 98.2 DegF (10/10/22 11:42:00) Temperature Route: Oral (10/10/22 11:42:00) Pulse Rate: 64 bpm (10/10/22 11:42:00) Respiratory Rate: 18 br/min (10/10/22 12:03:00) Systolic Blood Pressure: 123 mm Hg (10/10/22 11:42:00) Diastolic Blood Pressure: 60 mm Hg (10/10/22 11:42:00) Blood pressure sites: Arm, right (10/10/22 11:42:00) Mean Arterial Pressure: 97 mm Hg (10/10/22 08:59:00) Pulse Pressure: 63 mm Hg (10/10/22 11:42:00) Oxygen Saturation: 98 % (10/10/22 11:42:00) Mode of Delivery (Oxygen): Room air (10/10/22 11:42:00) Early Warning Score: 0 (10/10/22 12:03:47) ? Physical Exam ?? No change from yesterday Results Abnormal Labs No lab data available. ?? Assessment/Plan ?? 52-year-old male with a past medical history of CAD with an anterior STEMI in 2019 status post KATARINA to proximal LAD, heart failure reduced ejection fraction, ischemic cardiomyopathy, HFrEF 10-15% (2021), chronic kidney disease, hypertension, hyperlipidemia, , hypothyroidism, morbid obesity, IONA, nonc ompliant with CPAP, tobacco use, active marijuana and recent respiratory arrest and month-long intubation after amphetamine overdose who presented to [facility] with complaints of chest pain. The patient has a history of multiple ER admissions for atypical chest pain and requesting Dilaudid and then he leaves AGAINST MEDICAL ADVICE. He was previously admitted about a week ago and left AGAINST MEDICAL ADVICE on September 23. Seen by cardiology this time???no need for inpatient work-up??and have arranged for outpatient follow-up Regarding his bilateral foot pain???patient was seen by??pain service??and at this time has been started on duloxetine ?? # Chest Pain: # Hypertension: # Chronic systolic and diastolic heart failure # History of CAD s/p PCI/KATARINA Cardiology input appreciated, Does not need any further work-up Troponin elevated however lower than previous discharge troponin Patient moved to [place] and recently returned to [place].?? Plan ASA, Atorvastatin, Carvedilol, and Entresto. Torsemide??increased to prior dose of 40mg bid Continue Spironolactone Outpt cardiology follow-up already scheduled Labs to check basic metabolic panel in 1 to 2 weeks ?? # Bilateral foot pain ??pulses are intact bilaterally, no ulceration seen on the skin ??x-ray of foot bilaterally shows mild arthritic changes in right foot ??Seen by acute pain service, recommended Lyrica 150 twice daily - patient states this is not helping so was d/taylor ??Acute pain service also recommended neurology, PMR evaluation ??Discussed with neurology, as per them no need for inpatient evaluation ??Seen by PMR before, PMR recommendations double upright AFOs with orthopedic shoes, due to his history of obesity, fluctuating edema and that he liked this type of AFO. ??Meanwhile, patient has high risk of falls and will benefit from a wheelchair. The patient also isobese and the walker that he has in the room is very narrow. He will benefit from a wide, heavy frame walker for ambulation.?For polyneuropathy, patient may benefit from EMG and nerve conduction study as outpatient to ruleout possible treatable causes of polyneuropathy. ??The pain does seem to be very neuropathic in description Plan: - Trial duloxetine 30mg qhs - counseled to seek help if any thoughts of self harm - IV Dilaudid has been discontinued now???continue with oral Dilaudid??and will need to be titrateddown - PT states patient needs specially fitted AFOs, they have discussed with OT who will coordinate - Needs outpatient neurology Eval, EMG, nerve conduction ?? # Hypothyroidism:-TSH normal. ??Levothyroxine ?? # Tobacco Use:-Patient smokes a pack per day. He was counseled on quitting. He declined Nicotine patch. ?#Swelling/prepatellar bursitis: it was discussed with ortho 10/05 - bursal swelling should not affect AFO placement. can follow up with ortho as outpatient ? # Hyperlipidemia??? Continue home statin ?? # Morbidly obese: Outpatient follow-up ? # CKD III -??Creatinine stable at 0.8 ? # H/o Substance abuse : Utox negative ?? DVT prophylaxis???heparin subcu CODE STATUS???full ?? At this time is medically ready for discharge??needs rehab as per PT but no accepting facility * Natasha Elder RN: VERIFY, PERFORM, SIGN Event Display: Progress Note Hospital Authored Date: Patient: JAY MONTERO Age: 52 years Sex: Male : 1970 Associated Diagnoses: None Author: Natasha Elder RN Findings Narrative/Incidental Transfer of patient care to Rickey Sanderson; report given. . Discharge Information Rehabilitation Discharge : Rehab Discharge Index 10/08/2022 10:16 EDT Walker: distance < 10 10/06/2022 9:50 EDT Walker: distance < 10 Note * Jaden Magallanes: PERFORM Event Display: Discharge/Transfer Note Hospital Authored Date: [id number] Nursing Discharge Note Entered On: 10/12/2022 18:42 EDT Performed On: 10/12/2022 18:41 EDT by Jaden Magallanes Nursing Discharge Note 2 Discharge Time : 10/12/2022 18:41 EDT Discharge Level of Care at Discharge : Homehealth/VNA Discharge VNA/Hospice/Home Care(v001) : [facility] [phone] Patient Left Unit Via : Ambulance Patient Accompanied Off Unit with : Ambulance/Chair Van Personnel Handover Given to Transport Personnel : Yes DC Instructions Provided & Signed by Pt : Unable Patient Understands D/C Instructions : Unable Patient Instructions Discharge Signed : No Did Pt have Specialty Bed or Wound Vac : No Jaden Magallanes - 10/12/2022 18:41 EDT * Corrie Self MD: MODIFY, MODIFY, PERFORM Event Display: Discharge/Transfer Note Hospital Authored Date: [id number] Patient: ??JAY MONTERO ? Age:??52 Years?Sex:??Male?:??1970?? Patient Information Discharge Location: Primary Care Physician: Preet Sofia MD Admit Date/Time: 09/26/22 11:10 Discharge Disposition Discharge Disposition: Home with Home Health Discharge Diagnosis ?? Chest pain (R07.9) Pain in both feet (M79.671) Known coronary artery disease Chronic systolic and diastolic congestive heart failure Hypertension Hypothyroidism _ Discharge Medications ?? Acetaminophen (Tylenol Extra Strength 500 mg oral tablet)?2?tab(s)?1,000?Milligram?By Mouth?Every 8 hours?as needed?Pain , Moderate Aspirin (Aspirin Low Dose 81 mg oral delayed release tablet)?1?tab(s)?81?Milligram?By Mouth?Daily Atorvastatin (atorvastatin 80 mg oral tablet)?1?tab(s)?80?Milligram?By Mouth?Daily Betamethasone-Clotrimazole Topical (betamethasone-clotrimazole 0.05%-1% topical cream)?1?catina?Topically?2 times a day?apply to feet Budesonide-Formoterol (Symbicort 80mcg/4.5mcg Inhaler)?2?puff(s)?Inhalation?2 times a day?in the morning and the eveninguse with spacer chamberrinse mouth and throat after use Carvedilol (carvedilol 6.25 mg oral tablet)?6.25?Milligram?1?tablet?By Mouth?2 times a day Duloxetine (duloxetine 30 mg oral enteric coated capsule)?1?capsule?30?Milligram?By Mouth?Daily at bedtime?for 30?Days Hydromorphone (Dilaudid 2 mg oral tablet)?1?tab(s)?2?Milligram?By Mouth?Every 6 hours?as needed?Pain , Severe?for 4?Days Levothyroxine (levothyroxine 0.2 mg oral tablet)?1?tab(s)?200?Microgram?By Mouth?Daily Melatonin (melatonin 3 mg oral tablet)?3?Milligram?By Mouth?Daily at bedtime?as needed?Insomnia Miscellaneous Rx (Bariatric Walker)?See Instructions?Dx - Weakness / Leg Pain Miscellaneous Rx (bariatric commode)?See Instructions?Dx - Weakness / Leg Pain Nitroglycerin (nitroglycerin 0.4 mg sublingual tablet)?1?tab(s)?0.4?Milligram?Sublingual?Every 5 minutes?as needed?Chest Pain Pantoprazole (pantoprazole 20 mg oral delayed release tablet)?1?tab(s)?20?Milligram?By Mouth?Daily Polyethylene Glycol 3350 (MiraLax Powder)?1?pack/packet?17?gram?By Mouth?Daily?as needed?Constipation sacubitril-valsartan (Entresto 24 mg-26 mg oral tablet)?1?tab(s)?By Mouth?2 times a day Spironolactone (spironolactone 25 mg oral tablet)?25?Milligram?1?tablet?By Mouth?Daily torsemide (torsemide 20 mg oral tablet)?2?tab(s)?40?Milligram?By Mouth?2 times a day Trazodone (traZODone 50 mg oral tablet)?50?Milligram?1?tablet?By Mouth?Daily at bedtime Medications Started ?? Duloexitine Hydromorphone prn Medications Discontinued ?? Fluoxetine Oxycodone Allergies Allergies ?(Active and Proposed Allergies Only) NKA? (Severity: Unknown severity, Onset: Unknown) ? PCP Follow-Up/Heads-Up ?? Needs outpatient neurology Eval, EMG, nerve conduction ?? Outpt Orthopedics FU ?? Future Appointments 2022 4:20 PM EDT ?? With: Puneet TORRES, [place] Where: [facility] [address] [place] [address]- Status: Pending Hospital Course ?? 52-year-old male with a past medical history of CAD with an anterior STEMI in 2019 status post KATARINA to proximal LAD, heart failure reduced ejection fraction, ischemic cardiomyopathy, HFrEF 10-15% (2021), chronic kidney disease, hypertension, hyperlipidemia, , hypothyroidism, morbid obesity, IONA, nonc ompliant with CPAP, tobacco use, active marijuana and recent respiratory arrest and month-long intubation after amphetamine overdose who presented to [facility] with complaints of chest pain. The patient has a history of multiple ER admissions for atypical chest pain and requesting Dilaudid and then he leaves AGAINST MEDICAL ADVICE. He was previously admitted about a week ago and left AGAINST MEDICAL ADVICE on September 23. Seen by cardiology this time???no need for inpatient work-up??and have arranged for outpatient follow-up Regarding his bilateral foot pain???patient was seen by??pain service??and at this time has been started on duloxetine ?? # Chest Pain: # Hypertension: # Chronic systolic and diastolic heart failure # History of CAD s/p PCI/KATARINA Cardiology input appreciated, Does not need any further work-up Troponin elevated however lower than previous discharge troponin Patient moved to [place] and recently returned to [place].?? Plan ASA, Atorvastatin, Carvedilol, and Entresto. Torsemide??increased to prior dose of 40mg bid Continue Spironolactone Outpt cardiology follow-up already scheduled Labs to check basic metabolic panel in 1 week ?? # Bilateral foot pain ??pulses are intact bilaterally, no ulceration seen on the skin ??x-ray of foot bilaterally shows mild arthritic changes in right foot ??Seen by acute pain service, recommended Lyrica 150 twice daily - patient states this is not helping so was d/taylor ??Acute pain service also recommended neurology, PMR evaluation ??Discussed with neurology, as per them no need for inpatient evaluation ??Seen by PMR before, PMR recommendations double upright AFOs with orthopedic shoes, due to his history of obesity, fluctuating edema and that he liked this type of AFO. ??Meanwhile, patient has high risk of falls and will benefit from a wheelchair. The patient also isobese and the walker that he has in the room is very narrow. He will benefit from a wide, heavy frame walker for ambulation.?For polyneuropathy, patient may benefit from EMG and nerve conduction study as outpatient to ruleout possible treatable causes of polyneuropathy. ??The pain does seem to be very neuropathic in description Plan: - Trial duloxetine 30mg qhs - counseled to seek help if any thoughts of self harm - prn Dilaudid ( pt states that he takes marijuana which helps his pain as outpt - Needs outpatient neurology Eval, EMG, nerve conduction ?? # Hypothyroidism:-TSH normal. ??Levothyroxine # Tobacco Use:-Patient smokes a pack per day. He was counseled on quitting. He declined Nicotine patch. #Swelling/prepatellar bursitis: it was discussed with ortho 10/05 - bursal swelling should not affect AFO placement. can follow up with ortho as outpatien # Hyperlipidemia??? Continue home statin # CKD III -??Creatinine stable at 0.8 # H/o Substance abuse : Utox negative Objective ?? Medically has been stable and ready for discharge??for the last several days Discharge was??delayed??as initially was planned for rehab however no accepting rehab place???seen by physical therapy here??and at this time recommended discharge home??with??services and family support.?? Was seen by case liner as well ?? Arranged for??bariatric??walker and bedside commode ?? Vital Signs?? Temperature: 97.9 DegF (10/12/22 05:52:00) Temperature Route: Oral (10/12/22 05:52:00) Pulse Rate: 83 bpm (10/12/22 10:11:00) Respiratory Rate: 18 br/min (10/12/22 06:13:00) Systolic Blood Pressure: 118 mm Hg (10/12/22 10:11:00) Diastolic Blood Pressure: 56 mm Hg (10/12/22 10:11:00) Blood pressure sites: Arm, left (10/12/22 10:11:00) Mean Arterial Pressure: 77 mm Hg (10/12/22 10:11:00) Pulse Pressure: 62 mm Hg (10/12/22 10:11:00) Oxygen Saturation: 96 % (10/12/22 05:52:00) Liters per Minute: 5 L/min (10/12/22 05:52:00) Mode of Delivery (Oxygen): Nasal cannula (10/12/22 05:52:00) Early Warning Score: 2 (10/12/22 10:16:25) ? . Physical Exam ?? Lying flat in bed, no acute distress at rest Awake alert oriented x3 ?? Although uses 5 L oxygen on the vital signs above ( error )???patient has been room air ?? Consultants Cardiology and acute pain service Pending Results Hold Lavender Tube (BB) ordered on 09/26/2022 Patient Education Titles Hydromorphone Oral Tablet?? Duloxetine Delayed Release Oral Capsule 30 mg?? Follow-Up Appointments Added Follow Up ?Time Frame ?Comments Preet Sofia MD?1 to 2 weeks?Needs Neurology and Orthopedics Eval as outptLabs to check BMP in 1 -2 weeks Puneet TORRES, [place]?You have Cardiology FU scheduled for 11/11/2022 Post Discharge Care Diet: Cardiac diet Activity: as tolerated Condition: [facility] Face to Face *Denotes mandatory craig ?? *I certify that this patient is under my care and that I or an allowed non- physician working with me had a face to face encounter with the patient on this date:??10/12/2022 13:21 ?? *The encounter with the patient was in whole, or in part, for the following medical condition, which is the primary diagnosis(es) for home health care:??Chest pain (R07.9) Pain in both feet (M79.671) Acid reflux Chronic kidney disease (CKD) stage G2/A2, mildly decreased glomerular filtration rate (GFR) [id number] mL/min/1.73 square meter and albuminuria creatinine ratio between 30-299 mg/g Cigarette smoker Coronary artery disease, hx STEMI, DE stent to LAD Hyperlipidemia Hypertension Hypothyroidism Marijuana smoker Morbid obesity Obstructive sleep apnea Post traumatic stress disorder (PTSD) Prediabetes ? *Select the indications for the discipline/s that are being arranged for this patient. Nursing (select all that apply): [_] None [_] Medication management (reconciliation, teaching)?? [_] Chronic disease management?? [_] Wound care and treatment?? [_] Home safety evaluation [_] Administer SQ/IM/IV medications?? [_] Cath care?? [_] Drain care?? [_] Trach or GT care?? Other _home Health Aid Occupation Therapy (select all that apply): [_] None [_] ADL Management [_] Fall prevention training [_] Energy conservation [_] Cognitive training Other _ Physical Therapy (select all that apply): [_] None [X] Functional mobility training [X] Home exercise program to strengthen [_] Increase ROM?? [X] Falls prevention training [_] Home maintenance program for chronic disease Other _ Speech Therapy (select all that apply): [_] None [_] Swallow evaluation and training [_] Speech and language training [_] Cognitive training to process, organize, and/or recall information Other _ ? *Homebound due to (select all that apply): [_] Inability to leave home without assistance/supervision [_] Inability to ambulate without assistance [_] Pain [X] Decreased strength and endurance [_] Unsteady gait [_] Severe SOB and fatigue [_] Impaired transfers [_] Inability to negotiate stairs [_] Limited weight bearing [_] Mental status change? *Physician Signature: Corrie Self_ ?? *By signing this, I certify that I have personally evaluated the patient and agree with the findings and recommendations as documented above. ? Results Discharge Labs BLOOD COUNT & DIFF WBC 9.2 k/mm3 ()?? 09/27/2022 05:41 RBC 3.76 m/mm3 (Low)?? 09/27/2022 05:41 Hgb 11.3 Gm/dL (Low)?? 09/27/2022 05:41 Hct 36.4 % (Low)?? 09/27/2022 05:41 MCV 96.8 femtoliters (High)?? 09/27/2022 05:41 MCH 30.1 pg ()?? 09/27/2022 05:41 MCHC 31.0 g/dL (Low)?? 09/27/2022 05:41 Platelet Count 299 k/mm3 ()?? 09/27/2022 05:41 RDW-SD 51.8 femtoliters (High)?? 09/27/2022 05:41 MPV 9.9 femtoliters ()?? 09/27/2022 05:41 Nucleated RBC (Automated) 0.0 #/100 WBC'S ()?? 09/27/2022 05:41 Abs. NRBC 0.0 k/mm3 ()?? 09/27/2022 05:41 Abs. Neut 7.9 k/mm3 (High)?? 09/26/2022 11:42 Abs. Lymph 1.1 k/mm3 ()?? 09/26/2022 11:42 Abs. Starke 0.9 k/mm3 ()?? 09/26/2022 11:42 Abs. Eo 0.4 k/mm3 ()?? 09/26/2022 11:42 Abs. Baso 0.0 k/mm3 ()?? 09/26/2022 11:42 Neut % 76.0 % ()?? 09/26/2022 11:42 Lymph % 11.0 % (Low)?? 09/26/2022 11:42 Starke % 8.3 % ()?? 09/26/2022 11:42 Eos % 4.1 % ()?? 09/26/2022 11:42 Baso % 0.2 % ()?? 09/26/2022 11:42 Hemoglobin (POC) POC Cartridge 12.6 Gm/dL (Low)?? 09/26/2022 11:32 Hematocrit (POC) POC Cartridge 37 % (Low)?? 09/26/2022 11:32 Imm Gran 0.4 % ()?? 09/26/2022 11:42 Abs. Imm Gran 0.0 k/mm3 ()?? 09/26/2022 11:42 ?? BLOOD GAS pH Venous (POC) POC Cartridge 7.49 (High)?? 09/26/2022 11:32 pCO2 Venous (POC) POC Cartridge 43.1 mm Hg ()?? 09/26/2022 11:32 pO2 Venous (POC) POC Cartridge 14 mm Hg (Low)?? 09/26/2022 11:32 Est Bicarbonate (POC) POC Cartridge 32.7 mmol/L (High)?? 09/26/2022 11:32 % O2 Sat Venous (POC) POC Cartridge 20 ()?? 09/26/2022 11:32 Base Excess (POC) POC Cartridge 9 ()?? 09/26/2022 11:32 Specimen Type - Blood Gas VENOUS ()?? 09/26/2022 11:32 ? CARDIAC Nt-Probnp 3072 pg/mL (High)?? 09/26/2022 11:45 High Sensitivity Troponin (HSTnT) 85 ng/L (Critical)?? 09/27/2022 05:42 ?? CHEM GENERAL Sodium 139 mmol/L ()?? 10/04/2022 01:18 Potassium 4.1 mmol/L ()?? 10/04/2022 01:18 Chloride 100 mmol/L ()?? 10/04/2022 01:18 Bicarbonate Level 22 mmol/L ()?? 10/04/2022 01:18 Anion Gap 17 ()?? 10/04/2022 01:18 Sodium (POC) POC Cartridge 140 mmol/L ()?? 09/26/2022 11:32 Potassium (POC) POC Cartridge 3.7 mmol/L ()?? 09/26/2022 11:32 Glucose Level 163 mg/dL (High)?? 09/29/2022 11:08 Glucose (POC) POC Cartridge 134 (High)?? 09/26/2022 11:32 Glucose, POC 123 mg/dL (High)?? 09/28/2022 12:33 BUN 16 mg/dL ()?? 10/04/2022 01:18 Creatinine-Blood 0.9 mg/dL ()?? 10/04/2022 01:18 Estimated GFR Creatinine 100 ML/MIN/1.73 M2 ()?? 10/04/2022 01:18 Calcium 9.3 mg/dL ()?? 09/29/2022 11:08 Ionized Calcium (POC) POC Cartridge 1.15 mmol/L ()?? 09/26/2022 11:32 Phosphorus 3.1 mg/dL ()?? 09/29/2022 11:08 Magnesium 1.9 mg/dL ()?? 09/29/2022 11:08 Protein, Total 6.6 Gm/dL ()?? 09/26/2022 11:45 Albumin 3.8 Gm/dL ()?? 09/26/2022 11:45 AG Ratio 1.4 ()?? 09/26/2022 11:45 Alkaline Phosphatase 54 units/L ()?? 09/26/2022 11:45 AST (SGOT) 17 units/L ()?? 09/26/2022 11:45 ALT (SGPT) 16 units/L ()?? 09/26/2022 11:45 Bilirubin, Total 0.3 mg/dL ()?? 09/26/2022 11:45 ?? ENDOCRINE/TUMOR MARKER TSH 2.22 uIU/mL ()?? 09/26/2022 11:45 ? URINE OTHER Est Creatinine Clearance 104.16 mL/min ()?? 10/04/2022 02:29 ? VIROLOGY COVID-19 by RT-PCR NEGATIVE ()?? 09/26/2022 11:47 ? 30_ minutes spent on discharge * Tio SANDERSON, Sheryl White: VERIFY, PERFORM, SIGN Event Display: Case Management Discharge Plan Authored Date: Patient: JAY MONTERO Age: 52 years Sex: Male : 1970 Associated Diagnoses: None Author: Sheryl Kinsey RN Discharge Plan Case Management Discharge Plan : Case Management Discharge Plan Data 10/12/2022 11:41 EDT Discharge Level of Care at Discharge Homehealth/VNA Discharge VNA/Hospice/Home Care [facility] [phone] Discharge Transportation Arranged [facility] [address] [facility] [phone] Discharge Arranged Transport Date/Time 10/12/2022 18:30 Mode of Transportation Arranged Ambulance Name of Agency #1 [facility] Service Categories #1 Home health aide, Physical Therapy Service Comments #1 The VNA will call you 1-2 days after d/c to setup your appt. If you do not hearfrom them, please call them at [phone] * Sona Jaden: PERFORM Event Display: Patient Education/Instruction Authored Date: Inpatient Adult Discharge Instructions [address] [address] Name: JAY MONTERO : 1970 Visit: 09/26/2022 11:10:00 Current Date: 10/12/2022 18:17 Account: [id number] Inpatient Adult Discharge Instructions We would like [...] and their families. Surveys are administered by [employer] ?? If further treatment with your primary care physician or another doctor is recommended, it is important for you to keep the appointment. Call your primary care physician or return to the Emergency Department immediately if your condition worsens, fails to improve, or new symptoms develop. If you need to find a doctor, you can call [facility] for a referral at [phone] or toll free at [phone] Speed ([phone]) or log in to [email or web address].. ?? You can view and manage your care through the patient portal or by using a health care catina of your choosing. [facility] is a website that allows you to securely view your medical information including your hospital discharge summary, office visit summaries, medications and follow-up visits. You can also request appointments, renew medications, and request access to your medical information using a health care catina of your choosing, or just ask a question. You can enroll at [email or web address] or register during your next office visit. You have been discharged from [facility], Patient Care Unit: S2. If you have any questions regarding these instructions after you leave, please call us and we will be happy to assist you. [facility] Your Care Team Attending Physician Aramis TORRES, Corrie Discharging Providers Corrie Self MD Reason for Admission NSTEMI, please refer to Level 1 sheet Your Diagnosis Chest pain Pain in both feet Tests Performed Below is a partial list of the tests performed during your hospitalization. You may have had other tests and procedures not included in this list. Please discuss all test results with your provider. BASE EXCESS POC CARTRIDGE Basic Metabolic Panel Blood Urea Nitrogen CALCIUM IONIZED POC CART CBC CBC w/ Differential Comprehensive Metabolic Panel COVID-19 (Novel Coronavirus), Rapid PCR Creatinine Electrolytes GLUCOSE POC GLUCOSE POC CARTRIDGE HEMATOCRIT POC CARTRIDGE HEMOGLOBIN POC CARTRIDGE High??Sensitivity??Troponin T Magnesium Level Phosphorus Level POTASSIUM POC CARTRIDGE ProBNP SODIUM POC CARTRIDGE Troponin T, High Sensitivity TSH with T4 Reflex (Adults Only) VBG POC CARTRIDGE XR Chest Portable XR Foot Min 3 Views Left XR Foot Min 3 Views Right Primary Care Provider Preet Sofia MD Advance Directive Health Care Proxy on File Yes - Health Care Proxy Yes - MOLST Discharge Vitals Temperature: 97.9 DegF Height: 180 cm Pulse Rate: 83 bpm Weight: 139.2 kg Respiratory Rate: 18 br/min Body Mass Index:??42.96 kg/m2??Critical Systolic Blood Pressure: 118 mm Hg Body surface area: 2.64 Diastolic Blood Pressure: 56 mm Hg ?? Oxygen Saturation: 96 % ?? Studies Pending All tests and labs ordered during this hospital stay have been completed unless listed below. Please discuss all pending results with your provider listed above in these instructions. ?? Hold Lavender Tube (BB) What to do next Instructions From Your Doctor Discharge Orders Diet:??Cardiac diet Activity:??as tolerated Condition:??FAir Scheduled Follow-Up Appointments 2022 4:20 PM EDT ?? With: Puneet TORRES, [place] Where: [facility] [address] [place] [address]- Status: Pending You Need to Schedule the Following Appointments Follow Up with??Preet Sofia MD When:??Within 1 to 2 weeks Why: Needs Neurology and Orthopedics Eval as outpt ?? Labs to check BMP in 1 -2 weeks Where: [address] [place] [address]- Follow Up with??Puneet TORRES, Jacob Hill Why: You have Cardiology FU scheduled for 11/11/2022 Where: [address] [facility] [place] [address]- Discharge Medications JAY MONTERO :1970 Visit Date:09/26/2022 Medications: Please continue your medications until treatment is completed or stopped by your provider. Medications not listed below should be discontinued. Discuss any questions related to medications with your provider. What How Much When Instructions Next Dose New Duloxetine (duloxetine 30 mg oral enteric coated capsule) 1 capsule Oral Daily at Bedtime Duration: 30 Days Refills: 1 Pickup at [facility] 3 10/12/22 9pm New Durable Medical Equipment (Hospital Bed) See instructions semi-electric adjustable hospital bed , HOB elevated >30degr most of time. Duration: 2 yrs. Dx: I50.22 ?? Printed Prescription DME New Hydromorphone (Dilaudid 2 mg oral tablet) 1 tab(s) Oral Every 6 hours as needed for Pain , Severe Duration: 4 Days Pickup at [facility] 3 As needed New Melatonin (melatonin 3 mg oral tablet) 3 Milligram Oral Daily at Bedtime as needed for Insomnia As needed New Miscellaneous Rx (bariatric commode) See instructions Dx - Weakness / ??Leg Pain ?? Printed Prescription New Miscellaneous Rx (Bariatric Walker) See instructions Dx - Weakness / ??Leg Pain ?? Printed Prescription New Polyethylene Glycol 3350 (MiraLax Powder) 17 gram Oral Daily as needed for Constipation As needed Changed Aspirin (Aspirin Low Dose 81 mg oral delayed release tablet) 1 tab(s) Oral Daily 10/13/22 9am Changed Atorvastatin (atorvastatin 80 mg oral tablet) 1 tab(s) Oral Daily 10/13/22 9am Changed Carvedilol (carvedilol 6.25 mg oral tablet) 1 tab(s) Oral Twice a day 10/12/22 9pm Changed Levothyroxine (levothyroxine 0.2 mg oral tablet) 1 tab(s) Oral Daily 10/13/22 9am Changed Spironolactone (spironolactone 25 mg oral tablet) 1 tab(s) Oral Daily 10/13/22 9am Changed sacubitril-valsartan (Entresto 24 mg-26 mg oral tablet) 1 tab(s) Oral Twice a day 10/12/22 9pm Changed torsemide (torsemide 20 mg oral tablet) 2 tab(s) Oral Twice a day 10/12/22 9pm Unchanged Acetaminophen (Tylenol Extra Strength 500 mg oral tablet) 2 tab(s) Oral Every 8 hours as needed for Pain , Moderate As needed Unchanged Betamethasone-Clotrimazole Topical (betamethasone-clotrimazole 0.05%- 1% topical cream) 1 catina Topically Twice a day apply to feet ?? 10/12/22 9pm Unchanged Budesonide-Formoterol (Symbicort 80mcg/ 4.5mcg Inhaler) 2 puff(s) Inhalation Twice a day in the morning and the evening use with spacer chamber rinse mouth and throat after use ?? 10/12/22 9pm Unchanged Nitroglycerin (nitroglycerin 0.4 mg sublingual tablet) 1 tab(s) Sublingual Every 5 minutes as needed for Chest Pain As needed Unchanged Pantoprazole (pantoprazole 20 mg oral delayed release tablet) 1 tab(s) Oral Daily 10/13/22 9am Unchanged Trazodone (traZODone 50 mg oral tablet) 1 tab(s) Oral Daily at Bedtime 10/12/22 9pm Pharmacy Information [facility] 3: [address] [place], [place] [id number] [phone] ?? What How Much When Comments Stop Taking Fluoxetine (FLUoxetine 40 mg oral capsule) 1 capsule Oral Daily Stop Taking Fluoxetine (FLUoxetine 40 mg oral capsule) 1 capsule Oral Daily Stop Taking Oxycodone (oxyCODONE 5 mg oral capsule) TAKE 1 CAPSULE BY MOUTH EVERY 6 HOURS NEEDED FOR SEVERE PAIN ?? Test Results Below is a partial list of the most recent Laboratory test results done prior to this discharge. You may have had other tests and procedures not included in this list. Please discuss all test resultswith your provider. Est Creatinine Clearance - 104.16 mL/min (10/04/2022) BASE EXCESS POC CARTRIDGE (09/26/2022) ???Base Excess (POC) POC Cartridge - 9 Basic Metabolic Panel (09/29/2022) ???Sodium - 141 mmol/L???Potassium - 5.0 mmol/L???Chloride - 102 mmol/L???Bicarbonate Level - 24 mmol/L???Anion Gap - 15???Glucose Level - 163 mg/dL???BUN - 19 mg/dL???Creatinine-Blood - 0.7 mg/dL???Estimated GFR Creatinine - 112 ML/MIN/1.73 M2???Calcium - 9.3 mg/dL Blood Urea Nitrogen (10/04/2022) ???BUN - 16 mg/dL CALCIUM IONIZED POC CART (09/26/2022) ???Ionized Calcium (POC) POC Cartridge - 1.15 mmol/L CBC (09/27/2022) ???WBC - 9.2 k/mm3???RBC - 3.76 m/mm3???Hgb - 11.3 Gm/dL???Hct - 36.4 %???MCV - 96.8 femtoliters???MCH - 30.1 pg???MCHC - 31.0 g/dL???Platelet Count - 299 k/mm3???RDW-SD - 51.8 femtoliters???MPV - 9.9 femtoliters???Nucleated RBC (Automated) - 0.0 #/100 WBC'S???Abs. NRBC - 0.0 k/mm3 CBC w/ Differential (09/26/2022) ???WBC - 10.4 k/mm3???RBC - 3.85 m/mm3???Hgb - 11.7 Gm/dL???Hct - 37.5 %???MCV - 97.4 femtoliters???MCH - 30.4 pg???MCHC - 31.2 g/dL???Platelet Count - 333 k/mm3???RDW-SD - 53.4 femtoliters???MPV - 9.8 femtoliters???Nucleated RBC (Automated) - 0.0 #/100 WBC'S???Abs. NRBC - 0.0 k/mm3???Abs. Neut - 7.9 k/mm3???Abs. Lymph - 1.1 k/mm3???Abs. Starke - 0.9 k/mm3???Abs. Eo - 0.4 k/mm3???Abs. Baso - 0.0 k/mm3???Neut % - 76.0 %???Lymph % - 11.0 %???Starke % - 8.3 %???Eos % - 4.1 %???Baso % - 0.2 %???Imm Gran - 0.4 %???Abs. Imm Gran - 0.0 k/mm3 Comprehensive Metabolic Panel (09/26/2022) ???Sodium - 141 mmol/L???Potassium - 3.9 mmol/L???Chloride - 99 mmol/L???Bicarbonate Level - 29 mmol/L???Anion Gap - 13???Glucose Level - 128 mg/dL???BUN - 17 mg/dL???Creatinine-Blood - 0.8 mg/dL???Estimated GFR Creatinine - 109 ML/MIN/1.73 M2???Calcium - 9.5 mg/dL???Protein, Total - 6.6 Gm/dL???Alb umin - 3.8 Gm/dL???AG Ratio - 1.4???Alkaline Phosphatase - 54 units/L???AST (SGOT) - 17 units/L???ALT (SGPT) - 16 units/L???Bilirubin, Total - 0.3 mg/dL COVID-19 (Novel Coronavirus), Rapid PCR (09/26/2022) ???COVID-19 by RT-PCR - NEGATIVE Creatinine (10/04/2022) ???Creatinine-Blood - 0.9 mg/dL???Estimated GFR Creatinine - 100 ML/MIN/1.73 M2 Electrolytes (10/04/2022) ???Sodium - 139 mmol/L???Potassium - 4.1 mmol/L???Chloride - 100 mmol/L???Bicarbonate Level - 22 mmol/L???Anion Gap - 17 GLUCOSE POC (09/28/2022) ???Glucose, POC - 123 mg/dL GLUCOSE POC CARTRIDGE (09/26/2022) ???Glucose (POC) POC Cartridge - 134 HEMATOCRIT POC CARTRIDGE (09/26/2022) ???Hematocrit (POC) POC Cartridge - 37 % HEMOGLOBIN POC CARTRIDGE (09/26/2022) ???Hemoglobin (POC) POC Cartridge - 12.6 Gm/dL High??Sensitivity??Troponin T (09/26/2022) ???High Sensitivity Troponin (HSTnT) - 83 ng/L Magnesium Level (09/29/2022) ???Magnesium - 1.9 mg/dL Phosphorus Level (09/29/2022) ???Phosphorus - 3.1 mg/dL POTASSIUM POC CARTRIDGE (09/26/2022) ???Potassium (POC) POC Cartridge - 3.7 mmol/L ProBNP (09/26/2022) ???Nt-Probnp - 3072 pg/mL SODIUM POC CARTRIDGE (09/26/2022) ???Sodium (POC) POC Cartridge - 140 mmol/L Troponin T, High Sensitivity (09/27/2022) ???High Sensitivity Troponin (HSTnT) - 85 ng/L TSH with T4 Reflex (Adults Only) (09/26/2022) ???TSH - 2.22 uIU/mL VBG POC CARTRIDGE (09/26/2022) ???pH Venous (POC) POC Cartridge - 7.49???pCO2 Venous (POC) POC Cartridge - 43.1 mm Hg???pO2 Venous(POC) POC Cartridge - 14 mm Hg???Est Bicarbonate (POC) POC Cartridge - 32.7 mmol/L???% O2 Sat Venous (POC) POC Cartridge - 20???Specimen Type - Blood Gas - VENOUS Allergies (NKA means No Known Allergies) NKA Problems Active Problems??(20) .Rn Angiography: Lucita Segal [phone], [facility]. [facility]?? Acid reflux?? Cannabinoid hyperemesis syndrome?? Chronic [...] apnea?? Post traumatic stress disorder (PTSD)?? Prediabetes?? Severe obesity?? Thoracic cyst- 3.5 cm smoothly marginated thin-walled low-attenuation lesion at the right lateral ma?? Education Materials Below is the list of Educational Leaflet Providered with your Discharge Instructions. Hydromorphone Oral Tablet?? Duloxetine Delayed Release Oral Capsule 30 mg?? Valuables and Belongings I fully understand and agree that [facility] accepts no responsibility for all my personal [...] to send valuables and belongings home. ?? Review of Valuable and Belonging List: With patient Date for Pt to Sign Valuables/Belongings: 10/02/22 02:02:00 ?? Other Discharge Information ?? Wound Assessment?? Wound Assessment?? Wound Location I: Buttocks, Right Wound I, Present on Admission: Yes Wound Location II: Buttocks, Right ?? Case Management Discharge Plan?? Discharge Plan?? Discharge Agency Information?? Discharge Level of Care at Discharge: Homehealth/VNA Name of Agency #1: [facility] Discharge Transportation Arranged: [facility] [phone] Service Categories #1: Home health aide, Physical Therapy Mode of Transportation Arranged: Ambulance Service Comments #1: The VNA will call you 1-2 days after d/c to setup your appt. If you do not hear from them, please call them at [phone] Discharge Arranged Transport Date/Time: 10/12/22 18:30:00 ?? Discharge VNA/Hospice/Home Care: [facility] [phone] ? Pulmonary Rehab Status?? Pulmonary Rehab Discharge [...] are strongly encouraged to quit. Please call [facility] Link at [phone] or [phone] Speed ([phone]) or log in to [email or web address] for referrals to smoking cessation programs. ?? 114 Suicide & Crisis Lifeline is available 15/11 if you or someone you know needs to find a reason to keep living. By calling 936 you'll be connected to a skilled, trained counselor at a crisis center in your area. INPATIENT DISCHARGE INSTRUCTIONS SIGNATURE PAGE JAY MONTERO Location:[facility] Registration Date and Time:09/26/2022 11:10 EDT Primary Care Physician: Preet Sofia MD, Attending Physician: Corrie Self MD, I JAY MONTERO, have received the above patient education materials/instructions and have verbalized understanding. If ambulance or transport services are being used I further acknowledge beinggiven a choice of service. ?? If you need to contact me, please call me at this number: . Patient/Pump Erector Helper Name: Patient/Pump Erector Helper Signature: Relationship to Patient: Witness Name/Signature: Date: * Corrie Self MD: PERFORM Event Display: Patient Education Leaflets Authored Date: [id number] Hydromorphone Oral Tablet ?? 35074-445 Hydromorphone Oral Tablet Brands: Dilaudid Uses For pain. ?? Instructions This medicine may be taken with or without food. Store at room temperature away from heat, light, and moisture. Do not keep in the bathroom. Please ask your doctor, nurse, or pharmacist how to discard unused medicines safely. To reduce constipation, eat high fiber foods, drink plenty of water and exercise. Drug interactions can change how medicines work or increase risk for side effects. Tell your healthcare providers about all medicines taken. Include prescription and [id number] medicines, vitamins, and herbal medicines. Speak with your doctor or pharmacist before starting or stopping any medicine. Tell your doctor if symptoms do not get better or if they get worse. ?? Cautions This medicine has an opioid. Opioids help many people but may cause addiction, especially if used for a long time. The addiction risk is higher if you have a substance use disorder (overuse of or addiction to drugs or alcohol). Ask your doctor about the benefits and risks. Ask your doctor or pharmacist if you should have naloxone on hand to treat opioid overdose. Teach your family or household members about the signs of an opioid overdose and how to treat it. If you stop this medicine suddenly after using it for a long time, you may have withdrawal. Your doctor may slowly lower your dose before stopping it. Tell your doctor right away if you have symptoms, such as unusual sweating, watering eyes, runny nose, chills, diarrhea, yawning, muscle aches, restlessness, anxiety, trouble sleeping, or thoughts of suicide. Tell your doctor and pharmacist if you ever had an allergic reaction to a medicine. Do not use the medication any more than instructed. This medicine may cause dizziness or fainting, especially after exercising or in hot weather. Be very careful when standing or sitting up quickly. If possible, avoid using with alcohol, marijuana, or other medicines that can cause dizziness or drowsiness. These include allergy/cold products, muscle relaxers, sleep aids, and pain relievers. Your ability to stay alert or to react quickly may be impaired by this medicine. Do not drive or operate machinery until you know how this medicine will affect you. This medicine passes into breast milk. Ask your doctor before . This medicine can hurt a new baby in the womb. If you become while on this medicine, tell your doctor immediately. Your doctor may switch you to a different medicine. This medicine should be used with caution in patients with breathing difficulties. Call your doctor right away if you notice slow or shallow breathing. Do not share this medicine with anyone who has not been prescribed this medicine. Some patients have serious side effects from this medicine. Ask your pharmacist to show you the information from the Food and Drug Administration (FDA) and discuss it with you. ?? Side Effects The following is a list of some common side effects from this medicine. Please speak with your doctor about what you should do if you experience these or other side effects. ??? decreased appetite ??? constipation ??? dizziness or drowsiness ??? dry mouth ??? feeling of heat or flushing ??? nausea and vomiting ??? stomach upset or abdominal pain If you have any of the following side effects, you may be getting too much medicine. Please contactyour doctor to let them know about these side effects. ??? changes in memory, mood, or thinking ??? fainting Call your doctor or get medical help right away if you notice any of these more serious side effects: ??? decreased awareness or responsiveness ??? breathing interruption during sleep ??? shallow, irregular breathing ??? hallucinations (unusual thoughts, seeing or hearing things that are not real) ??? fast, irregular, or slow heartbeat ??? seizures ??? severe stomach or bowel pain ??? unusual or une xplained tiredness or weakness ??? difficulty or discomfort urinating ??? weight loss A few people may have an allergic reaction to this medicine. Symptoms can include difficulty breathing, skin rash, itching, swelling, or severe dizziness. If you notice any of these symptoms, seek medical help quickly. ?? Extra Please speak with your doctor, nurse, or pharmacist if you have any questions about this medicine. ?? [email or web address]/[email or web address] IMPORTANT NOTE: This document tells you briefly how to take your medicine, but it does not tell youall there is to know about it. Your doctor or pharmacist may give you other documents about your medicine. Please talk to them if you have any questions. Always follow their advice. There is a more complete description of this medicine available in Uzbek. Scan this code on your smartphone or tablet or use the web address below. You can also ask your pharmacist for a printout. If you have any questions, please ask your pharmacist. The display and use of this drug information is subject to Terms of Use. Copyright(c) 2022 [employer]. ?? The [employer]. All rights reserved. This information is not intended as a substitute for professional medical care. Always follow your healthcare professional's instructions. ?? * Corrie Self MD: PERFORM Event Display: Patient Education Leaflets Authored Date: Duloxetine Delayed Release Oral Capsule 30 mg ?? [id number] Duloxetine Delayed Release Oral Capsule 30 mg Brands: Cymbalta Uses This medicine is used for the following purposes: ??? anxiety ??? depression ??? eating disorders ??? muscle aches ??? pain ?? Instructions Swallow the medicine without crushing or chewing it. This medicine may be taken with or without food. This medicine will work best if you take it at about the same time every day. Keep the medicine at room temperature. Avoid heat and direct light. It may take several weeks for this medicine to fully work. It is important that you keep taking each dose of this medicine on time even if you are feeling well. If you forget to take a dose on time, take it as soon as you remember. If it is almost time for thenext dose, do not take the missed dose. Return to your normal schedule. Do not take 2 doses at one time. Tell your doctor and pharmacist about all your medicines. Include prescription and dxvz-[id number], vitamins, and herbal medicines. Do not suddenly stop taking this medicine. Check with your doctor before stopping. ?? Cautions Tell your doctor and pharmacist if you ever had an allergic reaction to a medicine. Do not use the medication any more than instructed. This medicine may cause dizziness or fainting, especially after exercising or in hot weather. Be very careful when standing or sitting up quickly. Your ability to stay alert or to react quickly may be impaired by this medicine. Do not drive or operate machinery until you know how this medicine will affect you. Please check with your doctor before drinking alcohol while on this medicine. Family should check on the patient often. Call the doctor if patient becomes more depressed, has thoughts of suicide, or shows changes in behavior. Call the doctor if there are any signs of confusion or unusual changes in behavior. Tell the doctor or pharmacist if you are , planning to be , or . Do not start or stop any other medicines without first speaking to your doctor or pharmacist. Do not share this medicine with anyone who has not been prescribed this medicine. Some patients have serious side effects from this medicine. Ask your pharmacist to show you the information from the Food and Drug Administration (FDA) and discuss it with you. ?? Side Effects The following is a list of some common side effects from this medicine. Please speak with your doctor about what you should do if you experience these or other side effects. ??? decreased appetite ??? constipation ??? dizziness or drowsiness ??? dry mouth ??? lack of energy and tiredness ??? nausea and vomiting ??? stomach upset or abdominal pain ??? sweating Call your doctor or get medical help right away if you notice any of these more serious side effects: ??? agitated feeling or trouble sleeping ??? confusion ??? coughing up blood or vomit that looks like coffee grounds ??? fainting ??? hallucinations (unusual thoughts, seeing or hearing things that are not real) ??? rapid heartbeat ??? signs of liver damage (such as yellowing of eye or skin, dark urine, or unusual tiredness) ??? muscle aches, spasms or abnormal movements ??? muscle weakness ??? dilation of the pupils ??? seizures ??? problems with sexual functions or desire ??? shakiness ??? bloody or dark, tarry stools ??? blurring or changes of vision ??? severe or persistent vomiting A few people may have an allergic reaction to this medicine. Symptoms can include difficulty breathing, skin rash, itching, swelling, or severe dizziness. If you notice any of these symptoms, seek medical help quickly. ?? Extra Please speak with your doctor, nurse, or pharmacist if you have any questions about this medicine. ?? [email or web address]/[email or web address]/fdbpem/404 IMPORTANT NOTE: This document tells you briefly how to take your medicine, but it does not tell youall there is to know about it. Your doctor or pharmacist may give you other documents about your medicine. Please talk to them if you have any questions. Always follow their advice. There is a more complete description of this medicine available in Uzbek. Scan this code on your smartphone or tablet or use the web address below. You can also ask your pharmacist for a printout. If you have any questions, please ask your pharmacist. The display and use of this drug information is subject to Terms of Use. Copyright(c) 2022 [employer]. ?? The [employer]. All rights reserved. This information is not intended as a substitute for professional medical care. Always follow your healthcare professional's instructions. ?? * Corrie Self MD: PERFORM Event Display: Discharge/Transfer Note Hospital Authored Date: Patient: ??JAY MONTERO ? Age:??52 Years?Sex:??Male?:??1970?? Patient Information Discharge Location: S2 Primary Care Physician: Preet Sofia MD Admit Date/Time: 09/26/22 11:10 Discharge Disposition Discharge Disposition: ?? Discharge Diagnosis ?? Chest pain Known coronary artery disease Chronic systolic and diastolic congestive heart failure Hypertension Bilateral??leg pain Hypothyroidism _ Discharge Medications Acetaminophen (Tylenol Extra Strength 500 mg oral tablet)?2?tab(s)?1,000?Milligram?By Mouth?Every 8 hours?as needed?Pain , Moderate Aspirin (Aspirin Low Dose 81 mg oral delayed release tablet)?1?tab(s)?81?Milligram?By Mouth?Daily Atorvastatin (atorvastatin 80 mg oral tablet)?1?tab(s)?80?Milligram?By Mouth?Daily Betamethasone-Clotrimazole Topical (betamethasone-clotrimazole 0.05%-1% topical cream)?1?catina?Topically?2 times a day?apply to feet Budesonide-Formoterol (Symbicort 80mcg/4.5mcg Inhaler)?2?puff(s)?Inhalation?2 times a day?in the morning and the eveninguse with spacer chamberrinse mouth and throat after use Carvedilol (carvedilol 6.25 mg oral tablet)?6.25?Milligram?1?tablet?By Mouth?2 times a day Duloxetine (duloxetine 30 mg oral enteric coated capsule)?30?Milligram?By Mouth?Daily at bedtime Heparin?1.5?Milliliter?7,500?unit(s)?Subcutaneous Injection?3 times a day Hydromorphone (Dilaudid 2 mg oral tablet)?2?Milligram?By Mouth?Every 4 hours?as needed?Pain , Severe Levothyroxine (levothyroxine 0.2 mg oral tablet)?1?tab(s)?200?Microgram?By Mouth?Daily Melatonin (melatonin 3 mg oral tablet)?3?Milligram?By Mouth?Daily at bedtime?as needed?Insomnia Nitroglycerin (nitroglycerin 0.4 mg sublingual tablet)?1?tab(s)?0.4?Milligram?Sublingual?Every 5 minutes?as needed?Chest Pain Pantoprazole (pantoprazole 20 mg oral delayed release tablet)?1?tab(s)?20?Milligram?By Mouth?Daily Polyethylene Glycol 3350 (MiraLax Powder)?1?pack/packet?17?gram?By Mouth?Daily?as needed?Constipation sacubitril-valsartan (Entresto 24 mg-26 mg oral tablet)?1?tab(s)?By Mouth?2 times a day Spironolactone (spironolactone 25 mg oral tablet)?25?Milligram?1?tablet?By Mouth?Daily torsemide (torsemide 20 mg oral tablet)?2?tab(s)?40?Milligram?By Mouth?2 times a day Trazodone (traZODone 50 mg oral tablet)?50?Milligram?1?tablet?By Mouth?Daily at bedtime ?? Medications Started ?? Duloexitine Hydromorphone prn Medications Discontinued Fluoxetine Oxycodone Doses Changed None Allergies Allergies ?(Active and Proposed Allergies Only) NKA? (Severity: Unknown severity, Onset: Unknown) ? PCP Follow-Up/Heads-Up ?? Outpatient cardiology follow-up ?? Outpatient neurology follow-up Future Appointments 2022 4:20 PM EDT ?? With: Puneet TORRES, [place] Where: [facility] [address] [place] [address]- Status: Pending Hospital Course ?? 52-year-old male with a past medical history of CAD with an anterior STEMI in 2019 status post KATARINA to proximal LAD, heart failure reduced ejection fraction, ischemic cardiomyopathy, HFrEF 10-15% (2021), chronic kidney disease, hypertension, hyperlipidemia, , hypothyroidism, morbid obesity, IONA, nonc ompliant with CPAP, tobacco use, active marijuana and recent respiratory arrest and month-long intubation after amphetamine overdose who presented to [facility] with complaints of chest pain. The patient has a history of multiple ER admissions for atypical chest pain and requesting Dilaudid and then he leaves AGAINST MEDICAL ADVICE. He was previously admitted about a week ago and left AGAINST MEDICAL ADVICE on September 23. Seen by cardiology this time???no need for inpatient work-up??and have arranged for outpatient follow-up Regarding his bilateral foot pain???patient was seen by??pain service??and at this time has been started on duloxetine ?? # Chest Pain: # Hypertension: # Chronic systolic and diastolic heart failure # History of CAD s/p PCI/KATARINA Cardiology input appreciated, Does not need any further work-up Troponin elevated however lower than previous discharge troponin Patient moved to [place] and recently returned to [place].?? Plan ASA, Atorvastatin, Carvedilol, and Entresto. Torsemide??increased to prior dose of 40mg bid Continue Spironolactone Outpt cardiology follow-up already scheduled Labs to check basic metabolic panel in 1 to 2 weeks ?? # Bilateral foot pain ??pulses are intact bilaterally, no ulceration seen on the skin ??x-ray of foot bilaterally shows mild arthritic changes in right foot ??Seen by acute pain service, recommended Lyrica 150 twice daily - patient states this is not helping so was d/taylor ??Acute pain service also recommended neurology, PMR evaluation ??Discussed with neurology, as per them no need for inpatient evaluation ??Seen by PMR before, PMR recommendations double upright AFOs with orthopedic shoes, due to his history of obesity, fluctuating edema and that he liked this type of AFO. ??Meanwhile, patient has high risk of falls and will benefit from a wheelchair. The patient also isobese and the walker that he has in the room is very narrow. He will benefit from a wide, heavy frame walker for ambulation.?For polyneuropathy, patient may benefit from EMG and nerve conduction study as outpatient to ruleout possible treatable causes of polyneuropathy. ??The pain does seem to be very neuropathic in description Plan: - Trial duloxetine 30mg qhs - counseled to seek help if any thoughts of self harm - IV Dilaudid has been discontinued now???continue with oral Dilaudid??and will need to be titrateddown - PT states patient needs specially fitted AFOs, they have discussed with OT who will coordinate - Needs outpatient neurology Eval, EMG, nerve conduction ?? # Hypothyroidism:-TSH normal. ??Levothyroxine ?? # Tobacco Use:-Patient smokes a pack per day. He was counseled on quitting. He declined Nicotine patch. ?#Swelling/prepatellar bursitis: it was discussed with ortho 10/05 - bursal swelling should not affect AFO placement. can follow up with ortho as outpatient ? # Hyperlipidemia??? Continue home statin ?? # Morbidly obese: Outpatient follow-up ? # CKD III -??Creatinine stable at 0.8 ? # H/o Substance abuse : Utox negative Objective ?? 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 Since there is no accepting rehab place he is being transferred to??[facility] to continue with??physical therapy as inpatient and hopefully discharge home with services??soon ?? Vital Signs?? Temperature: 98.3 DegF (10/08/22 06:00:00) Temperature Route: Oral (10/08/22 06:00:00) Pulse Rate: 88 bpm (10/08/22 08:27:00) Respiratory Rate: 18 br/min (10/08/22 08:27:00) Systolic Blood Pressure: 106 mm Hg (10/08/22 08:27:00) Diastolic Blood Pressure: 76 mm Hg (10/08/22 08:27:00) Blood pressure sites: Arm, left (10/08/22 06:00:00) Mean Arterial Pressure: 92 mm Hg (10/08/22 06:00:00) Pulse Pressure: 47 mm Hg (10/08/22 06:00:00) Oxygen Saturation: 100 % (10/08/22 06:00:00) Mode of Delivery (Oxygen): Room air (10/08/22 06:00:00) Early Warning Score: 0 (10/08/22 08:31:36) ? . Physical Exam ?? Was sitting up, no acute distress at rest Respiratory???diminished air entry at bases Cardiovascular???normal heart sounds GI???abdomen soft, bowel sound present Neuro-??? oriented x3 Consultants ?? Cardiology Pain service Pending Results Hold Lavender Tube (BB) ordered on 09/26/2022 Post Discharge Care Diet: Cardiac diet Activity: as tolerated Condition: [facility] ^[facility] Results Discharge Labs BLOOD COUNT & DIFF WBC 9.2 k/mm3 ()?? 09/27/2022 05:41 RBC 3.76 m/mm3 (Low)?? 09/27/2022 05:41 Hgb 11.3 Gm/dL (Low)?? 09/27/2022 05:41 Hct 36.4 % (Low)?? 09/27/2022 05:41 MCV 96.8 femtoliters (High)?? 09/27/2022 05:41 MCH 30.1 pg ()?? 09/27/2022 05:41 MCHC 31.0 g/dL (Low)?? 09/27/2022 05:41 Platelet Count 299 k/mm3 ()?? 09/27/2022 05:41 RDW-SD 51.8 femtoliters (High)?? 09/27/2022 05:41 MPV 9.9 femtoliters ()?? 09/27/2022 05:41 Nucleated RBC (Automated) 0.0 #/100 WBC'S ()?? 09/27/2022 05:41 Abs. NRBC 0.0 k/mm3 ()?? 09/27/2022 05:41 Abs. Neut 7.9 k/mm3 (High)?? 09/26/2022 11:42 Abs. Lymph 1.1 k/mm3 ()?? 09/26/2022 11:42 Abs. Starke 0.9 k/mm3 ()?? 09/26/2022 11:42 Abs. Eo 0.4 k/mm3 ()?? 09/26/2022 11:42 Abs. Baso 0.0 k/mm3 ()?? 09/26/2022 11:42 Neut % 76.0 % ()?? 09/26/2022 11:42 Lymph % 11.0 % (Low)?? 09/26/2022 11:42 Starke % 8.3 % ()?? 09/26/2022 11:42 Eos % 4.1 % ()?? 09/26/2022 11:42 Baso % 0.2 % ()?? 09/26/2022 11:42 Hemoglobin (POC) POC Cartridge 12.6 Gm/dL (Low)?? 09/26/2022 11:32 Hematocrit (POC) POC Cartridge 37 % (Low)?? 09/26/2022 11:32 Imm Gran 0.4 % ()?? 09/26/2022 11:42 Abs. Imm Gran 0.0 k/mm3 ()?? 09/26/2022 11:42 ?? BLOOD GAS pH Venous (POC) POC Cartridge 7.49 (High)?? 09/26/2022 11:32 pCO2 Venous (POC) POC Cartridge 43.1 mm Hg ()?? 09/26/2022 11:32 pO2 Venous (POC) POC Cartridge 14 mm Hg (Low)?? 09/26/2022 11:32 Est Bicarbonate (POC) POC Cartridge 32.7 mmol/L (High)?? 09/26/2022 11:32 % O2 Sat Venous (POC) POC Cartridge 20 ()?? 09/26/2022 11:32 Base Excess (POC) POC Cartridge 9 ()?? 09/26/2022 11:32 Specimen Type - Blood Gas VENOUS ()?? 09/26/2022 11:32 ? CARDIAC Nt-Probnp 3072 pg/mL (High)?? 09/26/2022 11:45 High Sensitivity Troponin (HSTnT) 85 ng/L (Critical)?? 09/27/2022 05:42 ?? CHEM GENERAL Sodium 139 mmol/L ()?? 10/04/2022 01:18 Potassium 4.1 mmol/L ()?? 10/04/2022 01:18 Chloride 100 mmol/L ()?? 10/04/2022 01:18 Bicarbonate Level 22 mmol/L ()?? 10/04/2022 01:18 Anion Gap 17 ()?? 10/04/2022 01:18 Sodium (POC) POC Cartridge 140 mmol/L ()?? 09/26/2022 11:32 Potassium (POC) POC Cartridge 3.7 mmol/L ()?? 09/26/2022 11:32 Glucose Level 163 mg/dL (High)?? 09/29/2022 11:08 Glucose (POC) POC Cartridge 134 (High)?? 09/26/2022 11:32 Glucose, POC 123 mg/dL (High)?? 09/28/2022 12:33 BUN 16 mg/dL ()?? 10/04/2022 01:18 Creatinine-Blood 0.9 mg/dL ()?? 10/04/2022 01:18 Estimated GFR Creatinine 100 ML/MIN/1.73 M2 ()?? 10/04/2022 01:18 Calcium 9.3 mg/dL ()?? 09/29/2022 11:08 Ionized Calcium (POC) POC Cartridge 1.15 mmol/L ()?? 09/26/2022 11:32 Phosphorus 3.1 mg/dL ()?? 09/29/2022 11:08 Magnesium 1.9 mg/dL ()?? 09/29/2022 11:08 Protein, Total 6.6 Gm/dL ()?? 09/26/2022 11:45 Albumin 3.8 Gm/dL ()?? 09/26/2022 11:45 AG Ratio 1.4 ()?? 09/26/2022 11:45 Alkaline Phosphatase 54 units/L ()?? 09/26/2022 11:45 AST (SGOT) 17 units/L ()?? 09/26/2022 11:45 ALT (SGPT) 16 units/L ()?? 09/26/2022 11:45 Bilirubin, Total 0.3 mg/dL ()?? 09/26/2022 11:45 ?? ENDOCRINE/TUMOR MARKER TSH 2.22 uIU/mL ()?? 09/26/2022 11:45 ? URINE OTHER Est Creatinine Clearance 104.16 mL/min ()?? 10/04/2022 02:29 ? VIROLOGY COVID-19 by RT-PCR NEGATIVE ()?? 09/26/2022 11:47 ? 30_ minutes spent on discharge Patient Care team information Care Team Personnel Name: Brenda Vanegas RN Position: [facility] RN Member Role: Primary Care Nurse Name: Renae Rashid RN Position: [facility] RN Member Role: Primary Care Nurse Name: Lizbeth Reardon RN Position: [facility] RN Member Role: Primary Care Nurse Name: Brittny Griffin RN Position: [facility] RN Member Role: Primary Care Nurse Name: Rickey Cruz RN Position: [facility] RN Member Role: Primary Care Nurse Name: Brandee Bee RN Position: [facility] RN Member Role: Primary Care Nurse Name: Janie Gamez RN Position: [facility] RN Member Role: Primary Care Nurse Name: Jing Santiago RN Position: [facility] RN Member Role: Primary Care Nurse Name: Sven Bustos RN Position: [facility] RN Member Role: Primary Care Nurse Name: Sharron Schaefer RN Position: [facility] RN Member Role: Primary Care Nurse Name: Franca Luis LPN Position: [facility] RN Member Role: Primary Care Nurse Name: Sheryl Linda RN Position: [facility] RN Member Role: Primary Care Nurse Name: Zara Aldridge RN Position: [facility] RN Member Role: Primary Care Nurse Name: Preet Sofia MD Position: [facility] Physician - Primary Care Member Role: PCP Address: Address: [address] [place] [address]- Name: Betsey Harvey RN Position: [facility] RN Member Role: Primary Care Nurse Name: Camila Cervantes RN Position: [facility] RN Member Role: Primary Care Nurse Name: Aruna Warren RN Position: [facility] RN Member Role: Primary Care Nurse Name: Naomi Kyle RN Position: [facility] RN Member Role: Primary Care Nurse Name: Pavan Espinoza RN Position: [facility] RN Member Role: Primary Care Nurse Name: Lynne Shah RN Position: [facility] RN Member Role: Primary Care Nurse Name: Naomi Mcadams RN Position: [facility] RN Member Role: Primary Care Nurse Name: Ashwini Larson RN Position: [facility] SN RN Member Role: Primary Care Nurse Name: Darren Ortega RN Position: [facility] RN Member Role: Primary Care Nurse Name: Lorraine Good RN Position: [facility] RN Member Role: Primary Care Nurse Name: Mohan Quijano RN Position: [facility] RN Member Role: Primary Care Nurse Name: Shaina Nagy RN Position: [facility] RN Member Role: Primary Care Nurse Name: Sarah Gordon RN Position: [facility] Onco RN Member Role: Primary Care Nurse Name: Catalina Cook RN Position: [facility] RN Member Role: Primary Care Nurse Name: Sweta Lang RN Position: [facility] RN Member Role: Primary Care Nurse Name: Kely Morton RN Position: [facility] RN Member Role: Primary Care Nurse Name: Nadiya Larsen DO Position: [facility] Resident Member Role: ED Resident Address: Address: [address] [place] [address]- Name: Ash Lamb MD Position: [facility] ED Medicine MD Member Role: ED Attending Physician Address: Address: [address] [place] [address]- Name: Maria Del Carmen Bermudez Position: [facility] ED OA Charge Member Role: ED Associate Name: Skylar Vazquez RN Position: [facility] ED RN W/OE and Tasks Member Role: Patient Care Provider Name: Beckie Kenyon Position: [facility] TA Member Role: Patient Care Provider Care Team Related Persons Name: DIAN RODGERS Address: [place] [address] Name: KT LANDEROS Address: [place] [address] Name: TAE QUIROZ Address: [place] [id number]
--- OUTSIDE RECORDS SUMMARY | 2023-01-20 23:58 | XMS_ITS | Continuity of Care Document ---
Author Name Unknown Organization [facility] ter Address [address] [place] [id number]- Care Team Providers Care Clinical Science Consultant Name Role Phone Preet Sofia MD Primary Care Physician [place] [facility]07/23 - 01/08/[address] [address]- Encounter Diagnosis Hypoxia(Final) - 01/07/23 Nonadherence to medication(Final) - 01/07/23 Pulmonary emboli(Final) - 01/07/23 Chronic pain(Final) - 01/07/23 Chest pain(Final) - 01/08/23 Discharge Disposition: A-D/C Home Attending Physician: Zain Maradiaga MD Admitting Physician: Zain Maradiaga MD Referring Physician: Not on Staff, Referring [...] History: [facility] 3Location History: [facility] 4[facility]: [facility] [...] oral tablet 3.125 mg, Tablet, By Mouth, 01/08/23 9:00:00 EDT Start Date: 01/08/23 Stop Date: 01/08/23 Status: Completed carvedilol 3.125 mg oral tablet 6.25 mg, [...] 0 Refills, Maintenance, 01/05/23 20:48:00 EDT, Tablet, [id number], Partial fill upo... Start Date: 01/05/23 Status: Ordered Dilaudid 2 mg oral tablet 2 mg, Tablet, By Mouth, Every 4 hours, PRN for Pain , Moderate, Routine, 01/07/23 16:22:00 EDT Start Date: 01/07/23 Stop Date: 01/08/23 Status: Discontinued duloxetine 30 mg oral enteric coated capsule [...] 11 Refills, Maintenance, 03/22/23 14:07:00 EST, Tablet, [facility][id number], 178, cm, 11/22/22 18:01:00 EDT, Height, 164.9, kg, 11/18/22 18:49:00 EDT,Dry Weight Start Date: 03/22/23 Stop Date: 03/16/24 Status: Ordered metFORMIN 500 mg oral tablet, extended release = 500 mg, By Mouth, Daily, # 30 tablet, 0 Refills, Maintenance, 12/23/22 10:10:00 EDT, ER Tablet, [facility] #[id number], Partial fill [...] 0 Refills, Maintenance, 06/09/21 12:34:00 EST, Tablet, [facility], Partial fill upon patient [...] 14:06:00 EDT, Aerosol, Route to Pharmacy Electronically, [id number]... Start Date: 11/22/22 Status: Ordered torsemide 20 mg oral tablet 1 tablet = 20 mg, By Mouth, 2 times a day, # 60 tablet, 5 Refills, Maintenance, 12/22/22 14:08:00 EDT, Tablet, [facility]/pharmacy [...] consistent with a cyst on CT at [facility] 04/2019 Confirmed 04/2019 Active Coronary [...] Confirmed Active Obstructive sleep apnea Confirmed Active .Customer Service Security Officer: Lucita Segal [phone], [facility] CPP Confirmed Active Post traumatic stress disorder (PTSD) Confirmed 1999 Active Pulmonary embolus most branches of R lung, Dx at [place], [place] on 11/28/22. L popliteal & peroneal DVT 11/18/22 Confirmed Active Severe obesity Confirmed Active 1-Seen in CT scan of the abdomen done at [facility] on 08-08-16 Results Radiology Reports * Exam Date Time Procedure Performing Provider Status 01/07/23 10:05 AM Chest 2 Views Frontal and Lat Nik Youssef; Auth (Verified) Notes: (Chest 2 Views Frontal and Lat) Reason For Exam: CHF RESULT: Chest 2 Views Frontal and Lat Chest 2 Views Frontal and Lat Hx of Present Illness: chest pain and SOB x 1 hr while sitting down; Reason: CHF; Clinical Question(s): Pleural Effusion COMPARISON: Multiple prior chest radiographs with the most recent dated 01/03/2023. FINDINGS: Limited examination due to the patient's large body habitus and underpenetration. LINES AND TUBES: None. LUNGS AND PLEURA: Probable clear lungs.. Normal pulmonary vascularity. No definite pleural effusions are seen. No pneumothorax. HEART, MEDIASTINUM AND CAROLA: Mild to moderate cardiomegaly and/or pericardial effusion essentially unchanged. Normal mediastinal and hilar contour. BONES AND SOFT TISSUES: No acute abnormality. IMPRESSION: Limited examination as described above. No interval change. Mild to moderate cardiomegaly and or pericardial effusion persists. WSN: [id number] Ordering Physician: Amie Grubbs Dictated By: José Fritz MD, V Dictated Date/Time: 01/07/23 10:11 a Reviewed By: José Fritz MD, V Signed By: José Fritz MD, V Signed Date/Time: 01/07/23 10:11 am Transcribed By: SHANNA Transcribed Date/Time: 01/07/23 10:09 am Vital Signs Most recent to oldest [Reference Range]: 1 2 3 Height 180 cm (01/08/23 9:35 AM) 180 cm (01/08/23 12:50 AM) 180 cm (01/07/23 12:34 PM) Weight 160 kg (01/08/23 9:35 AM) 160 kg (01/08/23 12:50 AM) 160 kg (01/07/23 12:34 PM) Oxygen Saturation [94-100 %] 100 % (01/08/23 9:35 AM) 99 % (01/08/23 7:00 AM) 97 % (01/08/23 3:36 AM) Pulse Rate [55-90 bpm] 62 bpm (01/08/23 9:35 AM) 77 bpm (01/08/23 9:32 AM) 85 bpm (01/08/23 7:00 AM) Body Mass Index [18.5-24.99 kg/m2] 49.38 kg/m2 *>HHI* (01/08/23 9:35 AM) 49.38 kg/m2 *>HHI* (01/08/23 12:50 AM) 49.38 kg/m2 *>HHI* (01/07/23 12:34 PM) Blood Pressure [90-138/55-84 mm Hg] 152/85mm Hg *H* (01/08/23 9:35 AM) 152/85mm Hg *H* (01/08/23 9:32 AM) 115/80mm Hg (01/08/23 7:00 AM) Respiratory Rate [16-30 br/min] 14 br/min *L* (01/08/23 9:35 AM) 18 br/min (01/08/23 9:32 AM) 16 br/min (01/08/23 7:00 AM) Temperature [96.8-100.4 DegF] 97.0 DegF (01/08/23 3:36 AM) 97.3 DegF (01/08/23 12:50 AM) 97.2 DegF (01/07/23 7:44 PM) Liters per Minute 4 L/min (01/08/23 7:00 AM) 4 L/min (01/08/23 3:36 AM) 4 L/min (01/08/23 12:50 AM) Mode of Delivery (Oxygen) Room air (01/08/23 9:35 AM) Nasal cannula (01/08/23 7:00 AM) Nasal cannula (01/08/23 3:36 AM) Blood pressure sites Arm, right (01/08/23 9:35 AM) Arm, right (01/08/23 7:00 AM) Arm, right (01/08/23 3:36 AM) Temperature Route Oral (01/08/23 3:36 AM) Oral (01/08/23 12:50 AM) Oral (01/07/23 7:44 PM) Dry Weight 160 kg (01/08/23 9:35 AM) 160 kg (01/08/23 12:50 AM) 160 kg (01/07/23 12:34 PM) Weight Obtained Via Patient/family stated (01/07/23 6:41 AM) Dry Weight Obtained Via Patient/family stated (01/07/23 6:41 AM) Social History Social History Type Response Smoking Status 10 or more cigarette s (1/2 pack or more)/day in last 30 days; Interested in cessation: No; Patient wants NRT during admission No entered on: 06/03/21 Sex Male EKG study * Event Display: ECG 12-Lead Authored Date: Please click on pdf link to open report * Event Display: ECG 12-Lead Authored Date: Ventricular Rate: 73 BPM Atrial Rate: 73 BPM P-R Interval: 180 ms QRS Duration: 126 ms Q-T Interval: 428 ms QTC Calculation(Bazett): 471 ms P Mcgee: -28 degrees R Mcgee: -50 degrees T Mcgee: 48 degrees Normal sinus rhythm Left axis deviation Left ventricular hypertrophy with QRS widening ( R in aVL , Joseluis product ) Cannot rule out Septal infarct (cited on or before 07-JAN-2023) Possible Lateral infarct (cited on or before 07-JAN-2023) Abnormal ECG Confirmed by VIPIN SESAY ([id number]) on 01/08/2023 4:08:53 PM [place]: VIPIN SESAY Note * Peggy Mcgrath RN: PERFORM, SIGN, VERIFY Event Display: Case Management Discharge Plan Authored Date: Patient: JAY MONTERO Age: 53 years Sex: Male : 1970 Associated Diagnoses: None Author: Peggy Mcgrath RN Discharge Plan Case Management Discharge Plan : Case Management Discharge Plan Data 01/08/2023 10:02 EDT Discharge Level of Care at Discharge Homehealth/VNA Discharge VNA/Hospice/Home [facility] Dis[facility] [employer] [facility] Discharge Transportation Arranged [facility] [address] [place] [phone] Discharge Arranged Transport Date/Time 01/08/2023 12:00 Mode of Transportation Arranged Ambulance Name of Agency #1 [facility] Name of Agency #1 [facility] Categories #1 [facility] Service Comments #1 you are being discharged from - [facility] will call you with next vist Service Categories #2 Oxygen Therapy Service Comments #2 [facility] will be delivering O2 supplies today - you may call them is needed Name of Person Notified of Transfer you * Ashwini TORRES, Zain M: PERFORM Event Display: Patient Education Leaflets Authored Date: Uncertain Causes of Chest Pain ?? [id number] Uncertain Causes of Chest Pain Chest pain can happen for a number of reasons. Sometimes the cause can't be determined. If your??condition does not seem serious, and your pain does not appear to be coming from your heart, your healthcare provider may recommend watching it closely. Sometimes the signs of a serious problem take more time to appear. Many problems not related to your heart can cause chest pain. These include: ??? Musculoskeletal. Costochondritis is an inflammation of the tissues around the ribs that can occur from trauma or overuse injuries, or a strain of the muscles of the chest wall. ??? Respiratory. Pneumonia, collapsed lung (pneumothorax), or inflammation of the lining of the chest and lungs (pleurisy). ??? Gastrointestinal. Esophageal reflux, heartburn, ulcers, or gallbladder disease. ??? Anxiety and panic disorders ??? Nerve compression and inflammation ??? Rare problems such as aortic aneurysm or aortic dissection (a swelling of the large artery coming out of the heart or a tear in the wall of the artery), or pulmonary embolism (a blood clot in the lungs). Home care After your visit, follow these recommendations: ??? Rest today and avoid strenuous activity. ??? Take any prescribed medicine as directed. ??? Be aware of any recurrent chest pain and notice any changes ?? Follow-up care Follow up with your healthcare provider if you don't start to feel better within 24 hours, or as advised. ?? Call 911 Call 911 if any of these occur: ??? A change in the type of pain: if it feels different, becomes more severe, lasts longer, or begins to spread into your shoulder, arm, neck, jaw or back ??? Shortness of breath or increased pain with breathing ??? Weakness, dizziness, or fainting ??? Rapid heartbeat ??? Crushing sensation in your chest ??? Coughing up more than a small amount of blood. ?? When to seek medical advice Call your healthcare provider right away if any of the following occur: ??? Cough with dark coloredsputum (phlegm) or small amount of blood ??? Fever of 100.4??F??(38??C) or higher, or as directed by your healthcare provider ??? Swelling, pain or redness in one leg ?? Last Reviewed Date: 2021 ?? [employer]. All rights reserved. This information is not intended as a substitute for professional medical care. Always follow your healthcare professional's instructions. ?? Patient Care team information Care Team Personnel Name: Brenda Vanegas RN Position: S RN Member Role: Primary Care Nurse Name: Renae Rashid RN Position: S RN Member Role: Primary Care Nurse Name: Lizbeth Reardon RN Position: [facility] RN Member Role: Primary Care Nurse Name: Brittny Griffin RN Position: [facility] RN Member Role: Primary Care Nurse Name: Rickey Cruz RN Position: [facility] RN Member Role: Primary Care Nurse Name: Brandee Bee RN Position: [facility] RN Member Role: Primary Care Nurse Name: Janie Gamez RN Position: [facility] RN Member Role: Primary Care Nurse Name: Toby Trotter RN Position: [facility] RN Supjosefa Member Role: Primary Care Nurse Name: Jing Santiago RN Position: [facility] RN Member Role: Primary Care Nurse Name: Sven Bustos RN Position: [facility] RN Member Role: Primary Care Nurse Name: Sharron Schaefer RN Position: [facility] RN Member Role: Primary Care Nurse Name: Franca Luis LPN Position: [facility] RN Member Role: Primary Care Nurse Name: Sheryl Linda RN Position: [facility] RN Member Role: Primary Care Nurse Name: Zara Aldridge RN Position: [facility] RN Member Role: Primary Care Nurse Name: rPeet Sofia MD Position: [facility] Physician - Primary Care Member Role: PCP Address: Address: [address] [place] [address] Name: Nanci Roman Position: [facility] RN Member Role: Primary Care Nurse Name: Betsey Hravey RN Position: [facility] RN Member Role: Primary Care Nurse Name: Camila Cervantes RN Position: [facility] RN Member Role: Primary Care Nurse Name: Aruna Warren RN Position: [facility] RN Member Role: Primary Care Nurse Name: Naomi Kyle RN Position: [facility] RN Member Role: Primary Care Nurse Name: Pavan Espinoza RN Position: [facility] RN Member Role: Primary Care Nurse Name: Lynne Shah RN Position: [facility] RN Member Role: Primary Care Nurse Name: Ashwini Larson RN Position: [facility] SN RN Member Role: Primary Care Nurse Name: Lorraine Good RN Position: [facility] RN Member Role: Primary Care Nurse Name: Mohan Quijano RN Position: [facility] RN Member Role: Primary Care Nurse Name: Shaina Nagy RN Position: [facility] RN Member Role: Primary Care Nurse Name: Sarah Gordon RN Position: [facility] Onco RN Member Role: Primary Care Nurse Name: Catalina Cook RN Position: [facility] RN Member Role: Primary Care Nurse Name: Yun Wadsworth RN Position: [facility] RN Member Role: Primary Care Nurse Name: Sweta Lang RN Position: [facility] RN Member Role: Primary Care Nurse Name: Selene SANDERSON, Kely Eng Position: [facility] RN Member Role: Primary Care Nurse Name: *[facility], ED Attending Position: [facility] ED Attendings Patient Name: Zain Maya Position: [facility] ED TA [facility] Member Role: Hydroelectric Plant Technician Name: Zain Maradiaga MD Position: [facility] ED Medicine MD Member Role: Admitting Physician Address: Address: [address] [place] [address] [place], [place] [address] Name: Jaden Patel LPN Position: [facility] ED RN W/OE and Tasks Member Role: Patient Care Provider Care Team Related Persons Name: DIAN RODGERS Address: [place] [address] Name: KT LANDEROS Address: [place] [address] Name: TAE QUIROZ Address: home [place] [id number]
--- OUTSIDE RECORDS SUMMARY | 2023-01-20 23:58 | XMS_ITS | Continuity of Care Document ---
Author Name Unknown Organization [facility] ter Address [address] [place] [address]- Care Team Providers Care School Plant Consultant Name Role Phone Preet Sofia MD Primary Care Physician Encounter [facility] [place] Date(s): 06/04/21 - 07/04/[address] [id number] Attending Physician: Not on Staff, Attending MD Admitting Physician: Not on Staff, Admitting MD Referring Physician: Not on Staff, Referring [...] 06/09/21 12:33:00 EST, Route to Pharmacy Electronically, [facility], 180, cm, 06/09/21 8:03:00 EST, Height, 168.5, kg, 06/03/21... Start Date: 06/09/21 Stop Date: 12/06/21 Status: Ordered atorvastatin 40 mg oral tablet 1 tablet = 40 mg, By Mouth, Daily at bedtime, for 30 days, # 30 tablet, 5 Refills, Hard Stop 12/06/21 12:33:00 EDT, 06/09/21 12:33:00 EST, Tablet, [facility], 180, cm, 06/09/21 8:03:00 [...] Stop 11/24/21 12:33:00EDT, 06/09/21 12:33:00 EST, Tablet, [facility], 180, cm, 06/09/21 8:03:00 EST, [...] Acute 07/26/21 7:53:00 EDT, :53:00 EST, Patch, [facility], Partial fill upon patient request if the prescriptionis for a schedule II opioid drug., 1 patch Topicall... Start Date: 06/26/21 Stop Date: 07/26/21 Status: Ordered nitroglycerin 0.4 mg sublingual tablet 1 tablet = 0.4 mg, Sublingual, Every 5 minutes, PRN Chest Pain, # 100 tablet, 0 Refills, Maintenance, 06/09/21 12:34:00 EST, Tablet, [facility], Partial fill [...] 0 Refills, Maintenance, 06/09/21 12:34:00 EST, Cream, [facility], Partial fill upon patient [...] 06/09/21 12:34:00 EST, Route to Pharmacy Electronically, [facility], home delivery, 180, cm, [...] consistent with a cyst on CT at [facility] 04/2019(Confirmed) 04/2019 Active Coronary artery [...] Morbid obesity(Confirmed) Active Obstructive sleep apnea(Confirmed) Active .Urologist Physician: Zoltan Diaz [phone], [facility]. CPP(Confirmed) Active Post traumatic stress disord er (PTSD)(Confirmed) 1999 Active Severe obesity(Confirmed) Active 1-Seen in CT scan of the abdomen done at [facility] on 08-08-16 Social History Social History Type Response Smoking Status 10 or more cigarette s (1/2 pack or more)/day in last 30 days; Interested in cessation: No; Patient wants NRT during admission No entered on: 06/03/21 Sex
--- OUTSIDE RECORDS SUMMARY | 2023-01-20 23:58 | XMS_ITS | Continuity of Care Document ---
Author Name Unknown Organization [facility] Address Unknown Care Team Providers Care Rotary Shear Worker Helper Name Role Phone Preet Sofia MD Primary Care Physician Encounter [facility] Date(s): 02/12/21 - 04/11/21 [facility] Attending Physician: Preet Sofia MD Admitting [...] consistent with a cyst on CT at [facility] 04/2019(Confirmed) 04/2019 Active Coronary artery [...] Morbid obesity(Confirmed) Active Obstructive sleep apnea(Confirmed) Active .Carbon Printer: Zoltan Diaz [phone], [facility]. BHCPP(Confirmed) Active Post traumatic stress disord er (PTSD)(Confirmed) 1999 Active 1-Seen in CT scan of the abdomen done at [facility] on 08-08-16 Social History Social History Type Response Smoking Status 10 or more cigarette s (1/2 pack or more)/day in last 30 days; Other: [id number]; entered on: 09/03/20 Sex
--- OUTSIDE RECORDS SUMMARY | 2023-01-20 23:58 | XMS_ITS | Continuity of Care Document ---
Author Name Unknown Organization [facility] Address [address] [place] [address]- Care Team Providers Care Chair Finisher Name Role Phone Preet Sofia MD Primary Care Physician Encounter [facility] Date(s): 10/08/20 - 11/07/20 [facility] Kimi [address] [place] [address]- Attending Physician: Admtr, Alexis Admitting Physician: AdmtrAlexis Referring Physician: Admtr, [...] Given Patient Refuses [facility] 2[facility] History: [facility] 3Location History: [facility] 4Location History: [facility] Medications aspirin 81 mg oral delayed release tablet 81 mg, By Mouth, Daily, # 90 tablet, Refills 4, Tot. Refills 4, Maintenance, 09/03/20 20:10:00 EDT,Route to Pharmacy Electronically, [facility], 180, cm, 09/03/20 9:24:00 EDT, Height, 172.7, kg, 08/28/20 4:44:00 EDT, Dry Weight Start Date: 09/03/20 Status: Ordered atorvastatin 40 mg oral tablet 1 tablet = 40 mg, By Mouth, Daily at bedtime, # 90 tablet, 4 Refills, Maintenance, 09/03/20 20:11:00 EDT, Tablet, [facility], 180, cm, 09/03/20 9:24:00 EDT, Height, 172.7, kg, 08/28/20 4:44:00 EDT, Dry Weight Start Date: 09/03/20 Status: Ordered carvedilol 3.125 mg oral tablet 3.125 mg, 1, tablet, By Mouth, 2 times a day, # 180 tablet, Refills 0, Tot. Refills 0, Maintenance,09/21/20 13:23:00 EDT, Route to Pharmacy Electronically, [facility], Partial fill upon patient request if the prescription is for a sched... Start Date: 09/21/20 Status: Ordered clopidogrel 75 mg oral tablet 75 mg, 1, tablet, By Mouth, Daily, # 90 tablet, Refills 3, Tot. Refills 3, Hard Stop 01/17/22 16:10:00 EDT, 01/22/21 16:10:00 EDT, [facility] to Pharmacy Electronically[id number] home delivery please, 180, cm, 04/08/20 13:32:00 EST, Height, 181.... Start Date: 01/22/21 Stop Date: 01/17/22 Status: Ordered Entresto 24 mg-26 mg oral tablet 1 tablet, By Mouth, 2 times a day, # 180 tablet, 0 Refills, Maintenance, 09/21/20 13:24:00 EDT, Tablet, [facility], Partial fill upon patient request if the prescription is for a schedule II opioid drug., 1 tablet By Mouth 2 times a day,... Start Date: 09/21/20 Status: Ordered FLUoxetine 20 mg oral capsule 20 mg, 1, capsule, By Mouth, Daily, # 90 capsule, Refills 4, Tot. Refills 4, Maintenance, 09/03/20 20:09:00 EDT, Route to Pharmacy Electronically, [facility], home delivery, 180, cm, 09/03/20 9:24:00 EDT, Height, 172.7, kg, 05/06/2... Start Date: 09/03/20 Status: Ordered levothyroxine 0.05 mg oral tablet 1 tablet = 50 mcg, By Mouth, Daily, # 90 tablet, 4 Refills, Maintenance, 06/26/20 17:25:00 EST, Tablet, [facility], home delivery, 180, cm, 06/26/20 14:13:00 EST, Height, 181.6, kg, 03/27/20 14:58:00 EST, Dry Weight Start Date: 06/26/20 Status: Ordered nortriptyline 10 mg oral capsule 10 mg, 1, capsule, By Mouth, Daily, # 90 capsule, Refills 3, Tot. Refills 3, Maintenance, 09/03/20 20:09:00 EDT, Route to Pharmacy Electronically, [facility], 180, cm, 09/03/20 9:24:00 EDT, Height, [...] 06/26/20 17:25:00 EST, Route to Pharmacy Electronically, [facility], home delivery, 180, cm, 06/26/20 14:13:00 EST, Height, 181.6, kg, 03/27/20... Start Date: 06/26/20 Status: Ordered torsemide 20 mg oral tablet 1 tablet = 20 mg, By Mouth, Daily, # 90 tablet, 0 Refills, Maintenance, 09/21/20 13:23:00 EDT, Tablet, [facility], Partial fill upon patient request [...] consistent with a cyst on CT at [facility] 04/2019(Confirmed) 04/2019 Active Coronary artery disease, [...] Morbid obesity(Confirmed) Active Obstructive sleep apnea(Confirmed) Active .Solar Site Assessment Specialist: Zoltan Diaz [phone], [facility] [employer]. CPP(Confirmed) Active Post traumatic stress disord er (PTSD)(Confirmed) 1999 Active 1-Seen in CT scan of the abdomen done at [facility] on 08-08-16 Social History Social History Type Response Smoking Status 10 or more cigarette s (1/2 pack or more)/day in last 30 days; Other: [id number]; entered on: 09/03/20 Sex
--- OUTSIDE RECORDS SUMMARY | 2023-01-20 23:58 | XMS_ITS | Continuity of Care Document ---
Author Name Unknown Organization [facility] Address [address] [place] [address]- Care Team Providers Care Processing Archivist Name Role Phone Preet Sofia MD Primary Care Physician [place] [facility] 05/10/20 [facility] [address] [place] [id number]- Allergies, Adverse Reactions, Alerts Substance Reaction Severity [...] 03/28/20 Not Given Patient Refuses 1Location History: [facility] 2Location History: [facility] 3Location History: [facility] 4Location History: [facility] Medications aspirin 81 mg oral delayed release tablet 81 mg, 1, tablet, By Mouth, Daily, # 90 tablet, Refills 3, Tot. Refills 3, Maintenance, 01/22/21 16:35:00 EDT, Route to Pharmacy Electronically, [facility]/pharmacy #[id number], home delivery please, 180, cm, 04/08/20 13:32:00 EST, Height, 181.6, kg, 03/27/20 14:5... Start Date: 01/22/21 Stop Date: 01/17/22 Status: Ordered aspirin 81 mg oral delayed release tablet 81 mg, 1, tablet, By Mouth, Daily, for 30 days, # 30 tablet, Refills 11, Tot. Refills 11, Hard Stop01/22/21 16:35:00 EDT, 01/28/20 16:35:00 EDT, Route to Pharmacy Electronically, [facility], 180.3, cm, 01/28/20 12:32:00 EDT, Height, 168... Start Date: 01/28/20 Stop Date: 01/22/21 Status: Ordered atorvastatin 40 mg oral tablet 1 tablet = 40 mg, By Mouth, Daily at bedtime, # 90 tablet, 3 Refills, Maintenance, 04/27/20 16:36:00 EST, Tablet, [facility]/pharmacy #[id number], home delivery please, 180, cm, 04/08/20 13:32:00 EST, Height, 181.6, kg, 03/27/20 14:58:00 EST, Dry Weight Start Date: 04/27/20 Stop Date: 07/26/20 Status: Ordered clopidogrel 75 mg oral tablet 75 mg, 1, tablet, By Mouth, Daily, # 90 tablet, Refills 3, Tot. Refills 3, Maintenance, 01/22/21 16:10:00 EDT, Route to Pharmacy Electronically, [facility]/pharmacy #1972, home delivery please, 180, cm, 04/08/20 13:32:00 EST, Height, 181.6, kg, 03/27/20 14:5... Start Date: 01/22/21 Stop Date: 01/17/22 Status: Ordered clopidogrel 75 mg oral tablet 75 mg, 1, tablet, By Mouth, Daily, for 30 days, # 30 tablet, Refills 11, Tot. Refills 11, Hard Stop01/22/21 16:10:00 EDT, 01/28/20 16:10:00 EDT, Route to Pharmacy Electronically, [facility], 180.3, cm, 01/28/20 12:32:00 [...] 05/27/20 16:36:00 EST, Route to Pharmacy Electronically, [facility]/pharmacy #1972, home delivery please, 180, cm, 04/08/20 13:32:00 EST, Height, 181.6, kg, ... Start Date: 05/27/20 Stop Date: 09/24/20 Status: Ordered furosemide 20 mg oral tablet 20 mg, 1, tablet, By Mouth, Daily in AM, for 30 days, # 30 tablet, Refills 3, Tot. Refills 3, Hard Stop 05/27/20 16:36:00 EST, 01/28/20 16:36:00 EDT, Route to Pharmacy Electronically, [facility], 180.3, cm, 01/28/20 12:32:00 EDT, Height,... [...] Maintenance, 04/27/2115:12:00 EST, Route to Pharmacy Electronically, [facility]/pharmacy #1972, home delivery please, 180, cm, 04/08/20 13:32:00 EST, Height, 181.6, kg, 03/27/20 1... Start Date: 04/27/20 Stop Date: 07/26/20 Status: Ordered metoprolol 25 mg oral tablet, extended release 25 mg, 1, tablet, By Mouth, Daily, # 90 tablet, Refills 4, Tot. Refills 4, Maintenance, 04/27/20 16:36:00 EST, Route to Pharmacy Electronically, [facility]/pharmacy #1972, home delivery please, 180, cm, 04/08/20 13:32:00 EST, Height, 181.6, kg, 03/27/20 14:5... Start Date: 04/27/20 Stop Date: 07/26/20 Status: Ordered omeprazole 20 mg oral delayed release tablet 1 tablet = 20 mg, By Mouth, Daily, PRN gastroesophageal acid reflux, # 30 tablet, 1 Refills, Maintenance, 04/13/20 14:37:00 EST, CR Tablet, [facility]/pharmacy #[id number], Partial fill upon patient request if [...] 04/27/20 16:35:00 EST, Route to Pharmacy Electronically, [facility]/pharmacy #1972, home delivery please, 180, cm, 04/08/20 [...] consistent with a cyst on CT at [facility] 04/2019(Confirmed) 04/2019 Active Coronary artery [...] of the abdomen done at [facility] on 08-08-16 Social History Social History Type Response Smoking Status 10 or more cigarette s (1/2 pack or more)/day in last 30 days; Other: [id number]; entered on: 01/25/20 Sex
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
--- OUTSIDE RECORDS SUMMARY | 2023-01-20 23:58 | XMS_ITS | Continuity of Care Document ---
Author Name Unknown Organization [facility] Address [address] [place] [address]- Care Team Providers Care Budget Analyst Name Role Phone Preet Sofia MD Primary Care Physician [phone] Encounter [facility] [place] Date(s): 07/08/20 - 08/07/20 [facility]/[address] [address]- Attending Physician: Eyal Talbert MD, I Admitting Physician: Eyal Talbert MD, I Allergies, Adverse Reactions, Alerts Substance Reaction Severity [...] Not Given Patient Refuses 1Location History: [facility] 2Location History: [facility] 3Location History: [facility] 4Location History: [facility] Medications ammonium lactate 12% topical cream 1 application, Topically, 2 times a day, for thick dry skin and callous, # 140 Gm, 3 Refills, Maintenance, 06/26/20 17:25:00 EST, Cream, [facility], home delivery, 1 application Topically 2 times a day,Instr:for thick dry skin and... Start Date: 06/26/20 Status: Ordered aspirin 81 mg oral delayed release tablet 81 mg, 1, tablet, By Mouth, Daily, # 90 tablet, Refills 3, Tot. Refills 3, Maintenance, 01/17/22 16:35:00 EDT, Route to Pharmacy Electronically, [facility], home delivery, 180, cm, 06/26/20 14:13:00 EST, Height, 181.6, kg, 03/27/20... Start Date: 01/17/22 Status: Ordered aspirin 81 mg oral delayed release tablet 81 mg, 1, tablet, By Mouth, Daily, # 90 tablet, Refills 3, Tot. Refills 3, Hard Stop 01/17/22 16:35:00 EDT, 01/22/21 16:35:00 EDT, [facility], 180, cm, 04/08/20 13:32:00 EST, Height, 181.... Start Date: 01/22/21 Stop Date: 01/17/22 Status: Ordered aspirin 81 mg oral delayed release tablet 81 mg, 1, tablet, By Mouth, Daily, for 30 days, # 30 tablet, Refills 11, Tot. Refills 11, Hard Stop01/22/21 16:35:00 EDT, 01/28/20 16:35:00 EDT, Route to Pharmacy Electronically, [facility], 180.3, cm, 01/28/20 12:32:00 EDT, Height, 168... Start Date: 01/28/20 Stop Date: 01/22/21 Status: Ordered atorvastatin 40 mg oral tablet 1 tablet = 40 mg, By Mouth, Daily at bedtime, # 90 tablet, 3 Refills, Maintenance, 06/26/20 17:25:00 EST, Tablet, [facility], home delivery, 180, cm, 06/26/20 14:13:00 EST, Height, 181.6, kg, 03/27/20 14:58:00 EST, Dry Weight Start Date: 06/26/20 Status: Ordered clopidogrel 75 mg oral tablet 75 mg, 1, tablet, By Mouth, Daily, # 90 tablet, Refills 3, Tot. Refills 3, Maintenance, 01/17/22 16:10:00 EDT, Route to Pharmacy Electronically, [facility], home delivery, 180, cm, 06/26/20 14:13:00 EST, Height, 181.6, kg, 03/27/20... Start Date: 01/17/22 Status: Ordered clopidogrel 75 mg oral tablet 75 mg, 1, tablet, By Mouth, Daily, # 90 tablet, Refills 3, Tot. Refills 3, Hard Stop 01/17/22 16:10:00 EDT, 01/22/21 16:10:00 EDT, [facility], 180, cm, 04/08/20 13:32:00 EST, Height, 181.... Start Date: 01/22/21 Stop Date: 01/17/22 Status: Ordered clopidogrel 75 mg oral tablet 75 mg, 1, tablet, By Mouth, Daily, for 30 days, # 30 tablet, Refills 11, Tot. Refills 11, Hard Stop01/22/21 16:10:00 EDT, 01/28/20 16:10:00 EDT, Route to Pharmacy Electronically, [facility] 3, 180.3, cm, 01/28/20 12:32:00 EDT, Height, 168... Start Date: 01/28/20 Stop Date: 01/22/21 Status: Ordered FLUoxetine 20 mg oral capsule 20 mg, 1, capsule, By Mouth, Daily, # 90 capsule, Refills 4, Tot. Refills 4, Maintenance, 06/26/20 17:25:00 EST, Route to Pharmacy Electronically, [facility], home delivery, 180, cm, 06/26/20 14:13:00 EST, Height, 181.6, kg, ... Start Date: 06/26/20 Status: Ordered furosemide 20 mg oral tablet 20 mg, 1, tablet, By Mouth, Daily in AM, # 90 tablet, Refills 3, Tot. Refills 3, Maintenance, 09/24/20 16:36:00 EDT, Route to Pharmacy Electronically, [facility], home delivery please, 180, cm, 06/26/20 14:13:00 EST, Height, 181.6,... Start Date: 09/24/20 Status: Ordered furosemide 20 mg oral tablet 20 mg, 1, tablet, By Mouth, Daily in AM, # 90 tablet, Refills 3, Tot. Refills 3, Hard Stop 09/25/2115:36:00 EDT, 05/27/20 16:36:00 EST, Route to Pharmacy Electronically, [facility]/pharmacy #1972, home delivery please, 180, cm, 04/08/20 13:32:00 EST, Height... Start Date: 05/27/20 Stop Date: 09/24/20 Status: Ordered levothyroxine 0.05 mg oral tablet 1 tablet = 50 mcg, By Mouth, Daily, # 90 tablet, 4 Refills, Maintenance, 06/26/20 17:25:00 EST, Tablet, [facility], home delivery, 180, cm, 06/26/20 14:13:00 EST, Height, 181.6, kg, 03/27/20 14:58:00 EST, Dry Weight Start Date: 06/26/20 Status: Ordered lidocaine 5% topical cream 1 application, Topically, 3 times a day, may interchange 3-5% cream or ointment per insurance coverage., # 45 Gm, 0 Refills, Maintenance, 06/26/20 17:30:00 EST, Cream, [facility],1 application Topically 3 times a day,Instr:may int... Start Date: 06/26/20 Status: Ordered lisinopril 5 mg oral tablet 2.5 mg, 0.5, tablet, By Mouth, Daily, for 30 days, # 45 tablet, Refills 3, Tot. Refills 3, Hard Stop 11/23/20 16:12:00 EDT, 07/26/20 16:12:00 EDT, Route to Pharmacy Electronically, [facility]/pharmacy #1972, home delivery please, 180, cm, 06/26/20 14:13:00 E... Start Date: 07/26/20 Stop Date: 11/23/20 Status: Ordered lisinopril 5 mg oral tablet 2.5 mg, 0.5, tablet, By Mouth, Daily, # 45 tablet, Refills 3, Tot. Refills 3, Maintenance, 11/24/2115:12:00 EDT, Route to Pharmacy Electronically, [facility], home delivery, 180,cm, 06/26/20 14:13:00 EST, Height, 181.6, kg, 12/03... Start Date: 11/23/20 Stop Date: 03/23/21 Status: Ordered metoprolol 25 mg oral tablet, extended release 25 mg, 1, tablet, By Mouth, Daily, # 90 tablet, Refills 4, Tot. Refills 4, Maintenance, 06/26/20 17:25:00 EST, Route to Pharmacy Electronically, [facility], home delivery, 180, cm, 06/26/20 14:13:00 EST, Height, 181.6, kg, 03/27/20... Start Date: 06/26/20 Status: Ordered nortriptyline 10 mg oral capsule 10 mg, 1, capsule, By Mouth, Daily, # 90 capsule, Refills 3, Tot. Refills 3, Maintenance, 06/26/20 17:28:00 EST, Route to Pharmacy Electronically, [facility], 180, cm, 06/26/20 14:13:00 EST, Height, 181.6, kg, 03/27/20 14:58:00 EST... Start Date: 06/26/20 Status: Ordered omeprazole 20 mg oral delayed release tablet 1 tablet = 20 mg, By Mouth, Daily, PRN gastroesophageal acid reflux, # 30 tablet, 1 Refills, Maintenance, 04/13/20 14:37:00 EST, CR Tablet, [facility]/pharmacy #[id number], Partial fill upon patient [...] 06/26/20 17:25:00 EST, Route to Pharmacy Electronically, [facility], home delivery, 180, cm, 06/26/20 14:13:00 [...] consistent with a cyst on CT at [facility] 04/2019(Confirmed) 04/2019 Active Coronary artery disease, hx [...]
--- OUTSIDE RECORDS SUMMARY | 2023-01-20 23:58 | XMS_ITS | Continuity of Care Document ---
Author Name Unknown Organization [facility] Address Unknown Care Team Providers Care Drill Hand Name Role Phone Preet Sofia MD Primary Care Physician [phone] [place] [facility] 11/10[place] 12/10/21 [facility] Attending Physician: Alexis Daigle Admitting Physician: Alexis Daigle Referring Physician: Alexis Daigle Allergies, Adverse Reactions, Alerts No Known Allergies Immunizations Given and Recorded Vaccine Date Status Refusal Reason SARS-CoV-2 (COVID-19) mRNA-1183 vaccine 05/11/21 G iven influenza virus vaccine, [...] Daily, # 28 tablet, 1 Refills, [facility], 180, cm, 11/03/21 2:14:00 EDT, Height, [...] 0 Refills, Maintenance, 06/09/21 12:34:00 EST, Tablet, [facility], Partial fill upon patient request [...] 11:03:00 EDT, Aerosol, Route to Pharmacy Electronically, [id number]... Start Date: 07/29/21 Status: Ordered torsemide 20 [...] consistent with a cyst on CT at [facility] 04/2019(Confirmed) 04/2019 Active Coronary artery [...] Morbid obesity(Confirmed) Active Obstructive sleep apnea(Confirmed) Active .Severity Of Illness Coordinator: Tejas Segal [phone], [facility]. B[facility]PP(Confirmed) Active Post traumatic stress disord er [...]
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
--- OUTSIDE RECORDS SUMMARY | 2023-01-20 23:58 | XMS_ITS | Continuity of Care Document ---
Author Name Unknown Organization [facility] Address [address] [place] [address]- Care Team Providers Care Stapling Machine Operator Name Role Phone Preet Sofia MD Primary Care Physician Encounter [facility] [place] Date(s): 05/08/19 - 05/15/[address] [address]- [facility] Attending Physician: Preet Sofia MD Allergies, Adverse Reactions, [...] 04/19/18 Not Given Patient Refuses 1Location History: formerly [facility] 2Location History: [facility] 3Location History: [facility] 4Location History: [facility] Medications levothyroxine 125 mcg (0.125 mg) oral [...] 05/02/19 12:02:00 EST, Route to Pharmacy Electronically, [id number], 180, cm, 05/02/19 11:51:00 EST, [...] Refills, Maintenance, 05/02/19 12:31:00 EST, Tablet, [facility]/pharmacy #[id number], 180, cm, 05/02/19 11:51:00 [...] Active BHCP/BHN care management Yes sha Hargrove [phone](Confirmed) Active Post traumatic stress disord er (PTSD)(Confirmed) 1999 Active 1-Seen in CT scan of the abdomen done at [facility] on 08-08-16 Social History Social History Type Response Smoking Status Current every day rich martinez; Type: Cigarettes; Tobacco use times per day: 1PPD; entered on: 03/22/16 Sex Male
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
--- OUTSIDE RECORDS SUMMARY | 2023-01-20 23:58 | XMS_ITS | Continuity of Care Document ---
Author Name Unknown Organization [facility] Address [address] [place] [id number]- Care Team Providers Care Chemotherapist Name Role Phone Preet Sofia MD Primary Care Physician [place] [facility] [id number] Date(s): 02/09/21 - 02/09/[address] [address]- Discharge Disposition: A-D/C Walkout Attending Physician: Not on Staff, Attending MD [...] 03/28/20 Not Given Patient Refuses 1Location History: [facility] 2Location History: [facility] 3Location History: [facility] 4Location History: [facility] Medications aspirin 81 mg oral delayed release [...] 01/26/21 Stop Date: 04/26/21 Status: Ordered FLUoxetine 20 mg oral capsule 20 mg, 1, capsule, By Mouth, Daily, # 30 capsule, Refills 2, Tot. Refills 2, Maintenance, 01/26/21 15:17:00 EDT, Route to Pharmacy Electronically, [facility], home delivery, 180, cm, 01/26/21 13:09:00 EDT, Height, 182.4, kg, 01/15/21 23:48... Start Date: 01/26/21 Stop Date: 04/26/21 Status: Ordered levothyroxine 0.05 mg oral tablet [...] Date: 01/26/21 Stop Date: 04/26/21 Status: Ordered spironolactone 25 mg oral tablet [...] consistent with a cyst on CT at [facility] 04/2019(Confirmed) 04/2019 Active Coronary artery [...] Morbid obesity(Confirmed) Active Obstructive sleep apnea(Confirmed) Active .Mental Health Assistant: Zoltan Diaz [phone], [facility]. CPP(Confirmed) Active Post traumatic stress disord er (PTSD)(Confirmed) 1999 Active 1-Seen in CT scan of the abdomen done at [facility] on 08-08-16 Results Radiology Reports * Exam Date Time Procedure Performing Provider Status 02/09/21 6:55 PM Chest 2 Views Frontal and Lat [facility], Jessica; Auth (Verified) Notes: (Chest 2 Views Frontal and Lat) Reason For Exam: Chest Pain;Other: RESULT: Chest 2 Views Frontal and Lat Chest 2 Views Frontal and Lat Hx of Present Illness: from home, intermittant lower cp with sob for 24hrs. extensive cardiac hx with stents; Reason: Other:; Chest Pain; Clinical Question(s): Other: COMPARISON: 01/14/2021 FINDINGS: LINES AND TUBES: None. LUNGS AND PLEURA: Clear lungs. Normal pulmonary vascularity. No pleural effusion. No pneumothorax. HEART, MEDIASTINUM AND CAROLA: Moderate prominence of the cardiac silhouette, unchanged. Normal upper mediastinal and hilar contour. BONES AND SOFT TISSUES: No acute abnormality. IMPRESSION: No acute abnormality. WSN: [id number] Ordering Physician: Ayla Brandt MD Dictated By: Delfin Royal MD Dictated Date/Time: 02/09/21 6:56 pm Reviewed By: Delfin Royal MD Signed By: Delfin Royal MD Signed Date/Time: 02/09/21 6:56 pm Transcribed By: SHANNA Transcribed Date/Time: 02/09/21 6:56 pm Vital Signs Most recent to oldest [Reference Range]: 1 2 Height 180 cm (02/09/21 6:19 PM) Weight 166 kg (02/09/21 6:19 PM) Oxygen Saturation [94-100 %] 94 % (02/09/21 8:46 PM) 96 % (02/09/21 6:19 PM) Pulse Rate [55-90 bpm] 67 bpm (02/09/21 8:46 PM) 71 bpm (02/09/21 6:19 PM) Blood Pressure [90-138/55-84 mm Hg] 155/ 90mm Hg *H* (02/09/21 8:46 PM) 134/58mm Hg (02/09/21 6:19 PM) Respiratory Rate [16-30 br/min] 18 br/mi n (02/09/21 8:46 PM) 16 br/min (02/09/21 6:19 PM) Temperature [96.8-100.4 DegF] 97.7 DegF (02/09/21 8:46 PM) 97.7 DegF (02/09/21 6:19 PM) Mode of Delivery (Oxygen) Room air (02/09/21 8:46 PM) Room air (02/09/21 6:19 PM) Blood pressure sites Arm, right (02/09/21 8:46 PM) Arm, left (02/09/21 6:19 PM) Temperature Route Oral (02/09/21 8:46 PM) Oral (02/09/21 6:19 PM) Dry Weight 166 kg (02/09/21 6:19 PM) Social History Social History Type Response Smoking Status 10 or more cigarette s (1/2 pack or more)/day in last 30 days; Other: [id number]; entered on: 09/03/20 Sex
--- OUTSIDE RECORDS SUMMARY | 2023-01-20 23:58 | XMS_ITS | Continuity of Care Document ---
Author Name Unknown Organization [facility] Address [address] [place] [address]- Care Team Providers Care Wool Washer Name Role Phone Preet Sofia MD Primary Care Physician Encounter [facility] Date(s): 07/10/20 - 08/09/20 [facility] [address] [address]- Attending Physician: AdmAlexis worrell Admitting Physician: AdmtrAlexis Referring Physician: Admtr, ArKeith Allergies, Adverse Reactions, Alerts Substance Reaction Severity [...] hospital 4Location History: [facility] Medications ammonium lactate 12% topical cream 1 application, Topically, 2 times a day, for thick dry skin and callous, # 140 Gm, 3 Refills, Maintenance, 06/26/20 17:25:00 EST, Cream, [facility], home delivery, 1 application Topically 2 times a day,Instr:for thick dry skin and... Start Date: 06/26/20 Status: Ordered aspirin 81 mg oral delayed release tablet 81 mg, 1, tablet, By Mouth, Daily, # 90 tablet, Refills 3, Tot. Refills 3, Maintenance, 01/17/22 16:35:00 EDT, Route to Pharmacy Electronically, [facility], home delivery, 180, cm, 06/26/20 14:13:00 EST, Height, 181.6, kg, 03/27/20... Start Date: 01/17/22 Status: Ordered aspirin 81 mg oral delayed release tablet 81 mg, 1, tablet, By Mouth, Daily, # 90 tablet, Refills 3, Tot. Refills 3, Hard Stop 01/17/22 16:35:00 EDT, 01/22/21 16:35:00 EDT, [id number], 180, cm, 04/08/20 13:32:00 EST, Height, 181.... Start Date: 01/22/21 Stop Date: 01/17/22 Status: Ordered aspirin 81 mg oral delayed release tablet 81 mg, 1, tablet, By Mouth, Daily, for 30 days, # 30 tablet, Refills 11, Tot. Refills 11, Hard Stop01/22/21 16:35:00 EDT, 01/28/20 16:35:00 EDT, Route to Pharmacy Electronically, [facility] 3, 180.3, cm, 01/28/20 12:32:00 EDT, Height, 168... Start Date: 01/28/20 Stop Date: 01/22/21 Status: Ordered atorvastatin 40 mg oral tablet 1 tablet = 40 mg, By Mouth, Daily at bedtime, # 90 tablet, 3 Refills, Maintenance, 06/26/20 17:25:00 EST, Tablet, [facility], home delivery, 180, cm, 06/26/20 14:13:00 EST, Height, 181.6, kg, 03/27/20 14:58:00 EST, Dry Weight Start Date: 06/26/20 Status: Ordered clopidogrel 75 mg oral tablet 75 mg, 1, tablet, By Mouth, Daily, # 90 tablet, Refills 3, Tot. Refills 3, Maintenance, 01/17/22 16:10:00 EDT, Route to Pharmacy Electronically, [facility], home delivery, 180, cm, 06/26/20 14:13:00 EST, Height, 181.6, kg, 03/27/20... Start Date: 01/17/22 Status: Ordered clopidogrel 75 mg oral tablet 75 mg, 1, tablet, By Mouth, Daily, # 90 tablet, Refills 3, Tot. Refills 3, Hard Stop 01/17/22 16:10:00 EDT, 01/22/21 16:10:00 EDT, [id number] home [facility] please, 180, cm, 04/08/20 13:32:00 EST, Height, 181.... Start Date: 01/22/21 Stop Date: 01/17/22 Status: Ordered clopidogrel 75 mg oral tablet 75 mg, 1, tablet, By Mouth, Daily, for 30 days, # 30 tablet, Refills 11, Tot. Refills 11, Hard Stop01/22/21 16:10:00 EDT, 01/28/20 16:10:00 EDT, Route to Pharmacy Electronically, [facility] 3, 180.3, cm, 01/28/20 12:32:00 EDT, Height, 168... Start Date: 01/28/20 Stop Date: 01/22/21 Status: Ordered FLUoxetine 20 mg oral capsule 20 mg, 1, capsule, By Mouth, Daily, # 90 capsule, Refills 4, Tot. Refills 4, Maintenance, 06/26/20 17:25:00 EST, Route to Pharmacy Electronically, [facility], home delivery, 180, cm, 06/26/20 14:13:00 EST, Height, 181.6, kg, ... Start Date: 06/26/20 Status: Ordered furosemide 20 mg oral tablet 20 mg, 1, tablet, By Mouth, Daily in AM, # 90 tablet, Refills 3, Tot. Refills 3, Maintenance, 09/24/20 16:36:00 EDT, Route to Pharmacy Electronically, [facility], home delivery please, 180, cm, 06/26/20 14:13:00 EST, Height, 181.6,... Start Date: 09/24/20 Status: Ordered furosemide 20 mg oral tablet 20 mg, 1, tablet, By Mouth, Daily in AM, # 90 tablet, Refills 3, Tot. Refills 3, Hard Stop 09/25/2115:36:00 EDT, 05/27/20 16:36:00 EST, Route to Pharmacy Electronically, [facility]/pharmacy #[id number], home delivery please, 180, cm, 04/08/20 13:32:00 EST, Height... Start Date: 05/27/20 Stop Date: 09/24/20 Status: Ordered levothyroxine 0.05 mg oral tablet 1 tablet = 50 mcg, By Mouth, Daily, # 90 tablet, 4 Refills, Maintenance, 06/26/20 17:25:00 EST, Tablet, [facility], home delivery, 180, cm, 06/26/20 14:13:00 EST, Height, 181.6, kg, 03/27/20 14:58:00 EST, Dry Weight Start Date: 06/26/20 Status: Ordered lidocaine 5% topical cream 1 application, Topically, 3 times a day, may interchange 3-5% cream or ointment per insurance coverage., # 45 Gm, 0 Refills, Maintenance, 06/26/20 17:30:00 EST, Cream, [facility],1 application Topically 3 times a day,Instr:may int... Start Date: 06/26/20 Status: Ordered lisinopril 5 mg oral tablet 2.5 mg, 0.5, tablet, By Mouth, Daily, for 30 days, # 45 tablet, Refills 3, Tot. Refills 3, Hard Stop 11/23/20 16:12:00 EDT, 07/26/20 16:12:00 EDT, Route to Pharmacy Electronically, [facility]/pharmacy #[id number], home delivery please, 180, cm, 06/26/20 14:13:00 E... Start Date: 07/26/20 Stop Date: 11/23/20 Status: Ordered lisinopril 5 mg oral tablet 2.5 mg, 0.5, tablet, By Mouth, Daily, # 45 tablet, Refills 3, Tot. Refills 3, Maintenance, 11/24/2115:12:00 EDT, Route to Pharmacy Electronically, [facility], home delivery, 180,cm, 06/26/20 14:13:00 EST, Height, 181.6, kg, 03/27... Start Date: 11/23/20 Stop Date: 03/23/21 Status: Ordered metoprolol 25 mg oral tablet, extended release 25 mg, 1, tablet, By Mouth, Daily, # 90 tablet, Refills 4, Tot. Refills 4, Maintenance, 06/26/20 17:25:00 EST, Route to Pharmacy Electronically, [facility], home delivery, 180, cm, 06/26/20 14:13:00 EST, Height, 181.6, kg, 03/27/20... Start Date: 06/26/20 Status: Ordered nortriptyline 10 mg oral capsule 10 mg, 1, capsule, By Mouth, Daily, # 90 capsule, Refills 3, Tot. Refills 3, Maintenance, 06/26/20 17:28:00 EST, Route to Pharmacy Electronically, [facility], 180, cm, 06/26/20 14:13:00 EST, Height, 181.6, kg, 03/27/20 14:58:00 EST... Start Date: 06/26/20 Status: Ordered omeprazole 20 mg oral delayed release tablet 1 tablet = 20 mg, By Mouth, Daily, PRN gastroesophageal acid reflux, # 30 tablet, 1 Refills, Maintenance, 04/13/20 14:37:00 EST, CR Tablet, [facility]/pharmacy #[id number], Partial fill upon patient [...] 06/26/20 17:25:00 EST, Route to Pharmacy Electronically, [facility], home delivery, 180, cm, 06/26/20 14:13:00 [...] consistent with a cyst on CT at [facility] 04/2019(Confirmed) 04/2019 Active Coronary artery [...]
--- OUTSIDE RECORDS SUMMARY | 2023-01-20 23:59 | XMS_ITS | Continuity of Care Document ---
Author Name Unknown Organization [facility] ter Address [address] [place] [id number]- Care Team Providers Care Scale Manager Name Role Phone Preet Sofia MD Primary Care Physician Encounter [facility] Date(s): 11/01/22 - 11/03/[address] [id number]- Encounter Diagnosis Shortness of breath(Final) - 11/02/22 Heart failure with reduced ejection fraction(Final) - 11/02/22 Discharge Disposition: A-D/C Home Attending Physician: Alessio TORRES, [facility] Admitting Physician: Trev Stewart MD Referring Physician: [...] History: hccc 3Location History: hccc 4Location History: [facility] Medications aspirin 81 mg oral delayed release tablet 1 tablet = 81 mg, By Mouth, Daily, # 90 tablet, 3 Refills, Maintenance, 10/19/22 20:02:00 EDT, CR Tablet, [facility]/pharmacy #[id number], 180, cm, 10/19/22 4:49:00 EDT, Height, 181, kg, 09/26/22 14:48:00 EDT, Dry Weight Start Date: 10/19/22 Status: Ordered atorvastatin 80 mg oral tablet 1 tablet = 80 mg, By Mouth, Daily, # 90 tablet, 3 Refills, Maintenance, 10/19/22 20:02:00 EDT, Tablet, [facility]/pharmacy #[id number], 180, cm, 10/19/22 4:49:00 EDT, Height, [...] 10/19/22 20:05:00 EDT, Route to Pharmacy Electronically, [facility]/pharmacy #[id number], 180, cm, 10/19/22 4:49:00 EDT, Height, 181, kg, 09/26/22 14:48:00 EDT, Dry W... Start Date: 10/19/22 Status: Ordered Dilaudid 2 mg oral tablet 2 mg, Tablet, By Mouth, 11/03/22 8:00:00 EDT Start Date: 11/03/22 Stop Date: 11/03/22 Status: Completed Dilaudid 2 mg oral tablet 2 mg, Tablet, By Mouth, 11/03/22 12:00:00 EDT Start Date: 11/03/22 Stop Date: 11/03/22 Status: Completed Dilaudid 2 mg oral tablet See Instructions, PRN Pain , Severe, 1 tablet By Mouth every 4 hours up to 3x/day during daytime asneeded for severe pain. 7 day supply., # 21 tablet, 0 Refills, Maintenance, 10/28/22 22:27:00 EDT, Tablet, [id number], Partial fill upon patien... Start Date: 10/28/22 Status: Ordered duloxetine 30 mg oral enteric coated capsule 1 capsule = 30 mg, By Mouth, Daily at bedtime, # 30 capsule, 1 Refills, Maintenance, 10/12/22 12:25:00 EDT, Capsule, [facility], Partial fill upon patient request if the prescription isfor a schedule II opioid drug., 180, cm, 10/12/22 1... Start Date: 10/12/22 Stop Date: 12/11/22 Status: Ordered Entresto 24 mg-26 mg oral tablet 1 tablet, By Mouth, 2 times a day, # 60 tablet, 5 Refills, Maintenance, 10/19/22 20:09:00 EDT, Tablet, [facility]/pharmacy #[id number], 1 tablet By Mouth 2 times [...] Refills, Maintenance, 10/19/22 20:08:00 EDT, REC Powder, [facility]/pharmacy #[id number], 17 Gm By Mouth Daily,PRN:Constipation,Instr:dissolve in water before taking, 180, cm,... Start Date: 10/19/22 Status: Ordered nitroglycerin 0.4 mg sublingual tablet 1 tablet = 0.4 mg, Sublingual, Every 5 minutes, PRN Chest Pain, # 100 tablet, 0 Refills, Maintenance, 06/09/21 12:34:00 EST, Tablet, [facility], Partial [...] 10/19/22 20:09:00 EDT, Route to Pharmacy Electronically, [facility]/pharmacy #[id number], 180, cm, 10/19/22 4:49:00 EDT, Height, [...] 5 Refills, Maintenance, 10/19/22 20:12:00 EDT, Tablet, [facility]/pharm[facility] #[id number], 180, cm, 10/19/22 4:49:00 EDT, Height, 181, kg, 09/26/22 14:48:00 EDT, Dry Weight Start Date: 10/19/22 Status: Ordered Tylenol Extra Strength 500 mg oral tablet 2 tablet = 1,000 mg, By Mouth, Every 8 hours, PRN Pain , Moderate, # 120 tablet, 5 Refills, Maintenance, 10/19/22 20:00:00 EDT, Tablet, [facility]/pharm[facility] #[id number], 180, cm, 10/19/22 4:49:00 EDT, Height, [...] consistent with a cyst on CT at [facility] 04/2019 Confirmed 04/2019 Active Coronary [...] Confirmed Active Obstructive sleep apnea Confirmed Active .Brim Buster: Lucita Segal [phone][facility] CPP Confirmed Active Post traumatic stress disorder (PTSD) Confirmed 1999 Active Severe obesity Confirmed Active 1-Seen in CT scan of the abdomen done at [facility] on 08-08-16 Results Radiology Reports * Exam Date Time Procedure Performing Provider Status 11/02/22 1:33 AM Chest 2 Views Fronta l and Lat JonahYeimyNo Debra; Auth (Verified) Notes: (Chest 2 Views Frontal and Lat) Reason For Exam: Shortness of Breath RESULT: Chest 2 Views Frontal and Lat Chest 2 Views Frontal and Lat Hx of Present Illness: coming from home. has had diff breathing for p[ast 3 days and sent home. c o8 10 cp nonradaiting; Reason: Shortness of Breath; Clinical Question(s): CHF COMPARISON: Multiple prior examinations most recent dated 10/31/2022 at 9:25 AM. FINDINGS: Slightly limited examination due to the patient's body habitus and underpenetration. LINES AND TUBES: None. LUNGS AND PLEURA: Persistent distal motor catheterization of the right subsegmental atelectasis and/or scarring rightlung base unchanged. Minimal residual retrocardiac density. Normal pulmonary vascularity. Minimal blunting of the right costophrenic angle laterally which may be due to scarring and/or small right pleural effusion. No pneumothorax. HEART, MEDIASTINUM AND CAROLA: Mild cardiomegaly unchanged. Normal mediastinal and hilar contour. BONES AND SOFT TISSUES: No acute abnormality. IMPRESSION: Persistent moderate elevation of the right hemidiaphragm subsegmental atelectasis and/or scarring right lung base. Improved aeration left lung base. Persistent mild cardiomegaly. WSN: [id number] Ordering Physician: Clyde Xavier Dictated By: José Fritz MD, V Dictated Date/Time: 11/02/22 8:32 am Reviewed By: José Fritz MD, V Signed By: José Fritz MD, V Signed Date/Time: 11/02/22 8:32 am Transcribed By: SHANNA Transcribed Date/Time: 11/02/22 8:30 am Vital Signs Most recent to oldest [Reference Range]: 1 2 3 Oxygen Saturation [94-100 %] 91 % *L* (11/03/22 8:32 AM) 96 % (11/03/22 6:27 AM) 97 % (11/03/22 3:24 AM) Pulse Rate [55-90 bpm] 75 bpm (11/03/22 8:02 AM) 61 bpm (11/03/22 6:27 AM) 57 bpm (11/03/22 3:24 AM) Blood Pressure [90-138/55-84 mm Hg] 148/86mm Hg *H* (11/03/22 8:02 AM) 117/91mm Hg (11/03/22 6:27 AM) 123/84mm Hg (11/03/22 3:24 AM) Respiratory Rate [16-30 br/min] 20 br/min (11/03/22 12:12 PM) 22 br/min (11/03/22 8:32 AM) 20 br/min (11/03/22 8:02 AM) Temperature [96.8-100.4 DegF] 97.3 DegF (11/03/22 8:02 AM) 97.4 DegF (11/03/22 6:27 AM) 98.8 DegF (11/02/22 7:00 PM) Liters per Minute 2 L/min (11/02/22 8:39 AM) 2 L/min (11/02/22 5:30 AM) 1 L/min (11/02/22 2:09 AM) Mode of Delivery (Oxygen) Room air (11/03/22 8:32 AM) Room air (11/03/22 8:02 AM) Room air (11/03/22 6:27 AM) Blood pressure sites Arm, right (11/03/22 8:02 AM) Arm, right (11/03/22 6:27 AM) Arm, left (11/03/22 3:24 AM) Temperature Route Oral (11/03/22 8:02 AM) Oral (11/03/22 6:27 AM) Oral (11/02/22 7:00 PM) Social History Social History Type Response Smoking Status 10 or more cigarette s (1/2 pack or more)/day in last 30 days; Interested in cessation: No; Patient wants NRT during admission No entered on: 06/03/21 Sex Male History and physical note * Margy TORERS, Gerald Zuñiga: PERFORM Event Display: History and Physical Hospital Authored Date: [id number] Patient: ??[place], JAY ? Age:??52 Years?Sex:??Male?:??1970?? Chief Complaint/Reason for Consultation SOB/ CP History of Present Illness 35-year-old previously healthy male presenting to the emergency department for shortness of breath.Patient states that for that he has had some difficulty breathing associated with some chest pain and back pain when he lays down for the past 1 month. He also has been having night sweats for that time as well. His sister who is in the room states that he has been losing weight for about 1 year. His chest pain and shortness of breath seem to be positional stating that it will only occur if he iscurled up in a ball or lying flat on his back on occasion. He went to an urgent care today for the symptoms and had a chest x-ray done and was told that he may have some fluid within his lungs and was sent to the emergency department for further evaluation. ?? In the emergency department patient's chest x-ray showed concerning findings with right word mediastinal shift with possible anterior mediastinal mass with bilateral pleural effusions. Radiology recommended getting a CT for further characterization. Patient's imaging very concerning for mass or neoplasm so we will get a CT chest with IV contrast. Patient had lab work ordered at triage showing a leukocytosis of 16.9. He is anemic with a hemoglobin of 9.9. Patient may need to be admitted depending on his imaging findings.. Objective Vital Signs?? Temperature: 98.2 DegF (11/02/22 05:30:00) Temperature Route: Oral (11/02/22 05:30:00) Pulse Rate: 73 bpm (11/02/22 14:50:00) Respiratory Rate:??15 br/min??Low (11/02/22 14:50:00) Systolic Blood Pressure:??144 mm Hg??High (11/02/22 14:50:00) Diastolic Blood Pressure:??100 mm Hg??High (11/02/22 14:50:00) Blood pressure sites: Arm, right (11/02/22 14:50:00) Mean Arterial Pressure: 102 mm Hg (11/02/22 05:30:00) Pulse Pressure: 44 mm Hg (11/02/22 14:50:00) Oxygen Saturation: 97 % (11/02/22 14:50:00) Liters per Minute: 2 L/min (11/02/22 08:39:00) Mode of Delivery (Oxygen): Room air (11/02/22 14:50:00) Early Warning Score: 0 (11/02/22 14:51:50) ? Physical Exam Awake, alert, oriented Lungs: Clear to auscultation bilateral, no wheezing no rales Heart: Regular rate and rhythm, no murmur, no rub or gallop Abdomen: Soft, obese,?? nondistended; Bowel sounds present Extremity: B/L pedal??edema , no cyanosis clubbing Neurological: No focal deficit Psychiatric: Normal mood and affect Assessment/Plan Assessment:??52-year-old male, history of CAD with an anterior STEMI in 2019 status post KATARINA to proximal LAD, heart failure reduced ejection fraction, ischemic cardiomyopathy, HFrEF 10-15% (2021), chronic kidney disease, hypertension, hyperlipidemia, , hypothyroidism, morbid obesity, IONA, noncomplia nt with CPAP, tobacco use, active marijuana and recent respiratory arrest and month-long intubationafter amphetamine overdose, who presents with progressive shortness of breath. Patient is non cooperative, reluctantly answered some of my question; he said he does not want diuretics , only wants dilaudid for pain. Frequently expressing his anger that he is waiting in the ER. ?? Per patient who is a mildly poor historian states he has been having worsening shortness of breath and wheezing over the past few days. He denies fevers or chills, states that he has a nonproductive cough. Worse when he lies flat or moves around. He has noted slight increased pedal edema. No micky chest pain or pressure, no abdominal pain. Per EMS mild hypoxia which responded to 2 L nasal cannula. Patient has been noncompliant with medications. Mild hypoxia per EMS improved with 2 L nasal cannula in the ED now has oxygen sats in the mid to upper 90s.? He is being admitted for CHF management ?? 52-year-old male with a past medical history of CAD with an anterior STEMI in 2020 status post KATARINA to proximal LAD, heart failure reduced ejection fraction, ischemic cardiomyopathy, HFrEF 10-15% (2021), chronic kidney disease, hypertension, hyperlipidemia, , hypothyroidism, morbid obesity, IONA, nonc ompliant with CPAP, tobacco use, active marijuana and recent respiratory arrest and month-long intubation after amphetamine overdose who presented to [facility] with complaints of chest pain. The patient [...] this time has been started on duloxetine ? Acute on chronic systolic CHF Non complaint with meds Refused to take lasix in ER ?? Trop 82--75, flat, was high 80s in the past ?? Plan: Will continue IV lasix (encouraged pt to take) Will continue BB, entretso and aldactone Daily weight I/O Follow lytes and renal function ? # Bilateral foot pain ? Plan: Will continue?? duloxetine 30mg qhs Given h/o rsep arrest and IONA will avoid Narcotics ? - Needs outpatient neurology Eval, EMG, nerve conduction??(as decided in last admission) ? # Hypothyroidism:-TSH normal. ?? Will continue Levothyroxine ?? # Tobacco Use:-Patient smokes a pack per day. He was counseled on quitting. He declined Nicotine patch. ? # Hyperlipidemia??? Continue home statin ? # CKD III -??Creatinine stable at 0.8 ? Code status: Full ?? Diet: Cardiac diet ?? Disp: Needs diuresis; patient threaten to leave; explained that as there is a medical need for IV diuretics, he will not be discharged, but if he decides to leave he has to go AMA (which I don not recommend) ?? Note: He left AMA on 10/12/22 ?? Histories Allergies Allergies ?(Active and Proposed Allergies Only) NKA? (Severity: Unknown severity, Onset: Unknown) ? Past Medical History/Problem List Active Problems??(20) .Brim Buster: Lucita Segal [phone], [facility] Acid reflux Cannabinoid hyperemesis syndrome Chronic kidney disease (CKD) stage G2/A2, mildly decreased glomerular filtration rate (GFR) [id number] mL/min/1.73 square meter and albuminuria creatinine ratio [...] units consistent witha cyst on CT at [facility] 04/2019 ? Past Surgical History Median [...] or more)/day in last 30 days. ??Other: [id number]. Electronic Cigarette/Vaping Details:??Electronic Cigarette Use: Never. ? [...] as needed for severe pain. 7 day supply. Levothyroxine (levothyroxine 0.2 mg oral tablet)?1?tab(s)?200?Microgram?By Mouth?Daily Melatonin (melatonin 3 mg oral tablet)?3?Milligram?By Mouth?Daily at bedtime?as needed?Insomnia Miscellaneous Rx (Bariatric Walker)?See Instructions?Dx - Weakness / Leg Pain Miscellaneous Rx (bariatric commode)?See Instructions?Dx - Weakness / Leg Pain Nitroglycerin (nitroglycerin 0.4 mg sublingual tablet)?1?tab(s)?0.4?Milligram?Sublingual?Every 5 minutes?as needed?Chest Pain Pantoprazole (pantoprazole 20 mg oral delayed release tablet)?1?tab(s)?20?Milligram?By Mouth?Daily Polyethylene Glycol 3350 (MiraLax oral powder for reconstitution)?17?gram?By Mouth?Daily?as needed?Constipation?dissolve in water before taking sacubitril-valsartan (Entresto 24 mg-26 mg oral tablet)?1?tab(s)?By Mouth?2 times a day Spironolactone (spironolactone 25 mg oral tablet)?25?Milligram?1?tablet?By Mouth?Daily torsemide (torsemide 20 mg oral tablet)?1?tab(s)?20?Milligram?By Mouth?2 times a day ? Results Recent Labs BLOOD COUNT & DIFF WBC 9.5 k/mm3 ()?? 11/01/2022 21:47 RBC 4.21 m/mm3 (Low)?? 11/01/2022 21:47 Hgb 12.7 Gm/dL (Low)?? 11/01/2022 21:47 Hct 39.7 % (Low)?? 11/01/2022 21:47 MCV 94.3 femtoliters (High)?? 11/01/2022 21:47 MCH 30.2 pg ()?? 11/01/2022 21:47 MCHC 32.0 g/dL (Low)?? 11/01/2022 21:47 Platelet Count 304 k/mm3 ()?? 11/01/2022 21:47 RDW-SD 50.6 femtoliters (High)?? 11/01/2022 21:47 MPV 9.4 femtoliters ()?? 11/01/2022 21:47 Nucleated RBC (Automated) 0.0 #/100 WBC'S ()?? 11/01/2022 21:47 Abs. NRBC 0.0 k/mm3 ()?? 11/01/2022 21:47 Abs. Neut 6.5 k/mm3 ()?? 11/01/2022 21:47 Abs. Lymph 2.2 k/mm3 ()?? 11/01/2022 21:47 Abs. [place] 0.7 k/mm3 ()?? 11/01/2022 21:47 Abs. Eo 0.1 k/mm3 ()?? 11/01/2022 21:47 Abs. Baso 0.0 k/mm3 ()?? 11/01/2022 21:47 Neut % 67.9 % ()?? 11/01/2022 21:47 Lymph % 22.9 % ()?? 11/01/2022 21:47 [place] % 7.4 % ()?? 11/01/2022 21:47 Eos % 1.2 % ()?? 11/01/2022 21:47 Baso % 0.2 % ()?? 11/01/2022 21:47 Imm Gran 0.4 % ()?? 11/01/2022 21:47 Abs. Imm Gran 0.0 k/mm3 ()?? 11/01/2022 21:47 ?? CARDIAC Nt-Probnp 1647 pg/mL (High)?? 11/01/2022 21:47 High Sensitivity Troponin (HSTnT) 75 ng/L (Critical)?? 11/01/2022 21:47 ?? CHEM GENERAL Sodium 138 mmol/L ()?? 11/02/2022 08:09 Potassium HEMOLYZED mmol/L ()?? 11/02/2022 08:09 Chloride 107 mmol/L ()?? 11/02/2022 08:09 Bicarbonate Level 16 mmol/L (Low)?? 11/02/2022 08:09 Anion Gap 15 ()?? 11/02/2022 08:09 Glucose Level 130 mg/dL (High)?? 11/01/2022 21:47 BUN 28 mg/dL (High)?? 11/02/2022 08:09 Creatinine-Blood 0.7 mg/dL ()?? 11/02/2022 08:09 Estimated GFR Creatinine 113 ML/MIN/1.73 M2 ()?? 11/02/2022 08:09 Calcium 8.3 mg/dL (Low)?? 11/01/2022 21:47 Magnesium 2.2 mg/dL ()?? 11/02/2022 08:09 ?? HEME OTHER Hold Blue Top SPECIMEN DISCARDED AFTER 4 HOURS. ()?? 11/01/2022 21:47 ?? VIROLOGY COVID-19 by RT-PCR NEGATIVE ()?? 11/02/2022 02:13 ? EKG study * Event Display: ECG 12-Lead Authored Date: Please click on pdf link to open report * Event Display: ECG 12-Lead Authored Date: Ventricular Rate: 71 BPM Atrial Rate: 71 BPM P-R Interval: 200 ms QRS Duration: 98 ms Q-T Interval: 402 ms QTC Calculation(Bazett): 436 ms P [place]: -19 degrees R [place]: -48 degrees T [place]: -58 degrees Normal sinus rhythm Left axis deviation Moderate voltage criteria for LVH, may be normal variant ( R in aVL , [place] product ) Anteroseptal infarct (cited on or before 24-JAN-2020) Lateral injury pattern ACUTE MO / STEMI Abnormal ECG When compared with ECG of 26-SEP-2022 11:11, Significant changes have occurred Confirmed by CLYDE ABDALLA MD ([id number]) on 11/03/2022 9:41:34 PM Alexander: [facility] Progress note * Wilmer James RN: PERFORM, SIGN, VERIFY Event Display: Progress [facility] Authored Date: Patient: JAY SOL Age: 52 years Sex: Male : 1970 Associated Diagnoses: None Author: Wilmer James RN Findings Evaluation 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 Sol this morning; he is drowsy but awakens to jingle writer's voice and is oriented times 4. He is upset shouting expletives out while jingle writer in room wishing to go home. He is not cooperative with jingle writer refusing exam. He endorses 10/10 bilateral foot pain. He pulled out his IV prior to jingle writer's arrival. He is refusing any other attempt at placing an IV as well asreceiving any other form of diuretic. Patient will not elaborate why saying because I said so! Commercial [employer] Professional attempted to explain why he was prescribed a diuretic but this only made him more upset. He hasbeen dismissive of staff. . * Sulema SANDERSON, Michael: PERFORM, SIGN, VERIFY Event Display: Progress [facility] Authored Date: Patient: JAY SOL Age: 52 years Sex: Male : 1970 Associated Diagnoses: None Author: Sulema SANDERSON, Michael Addendum This RN and KIN Brown discussed w/pt that the hospital cannot give him any assistance to go back tohis house (i.e. ambulance, cab) since he is leaving AMA. pt angry and disgruntled at this time. These two RN's and pt went back and forth several times discussing the AMA situation. Pt reports he hasnot received any of his home medications for PTSD, pain meds and that he was told I would get a bed upstairs by the morning of 11/02 . We discussed w/pt that he may be in the ED for an unknown amountof time and that we do not know the exact time or place that he will go. Pt stated at some point throughout discussion the following Fuck it i'm just gona roll a joint and smoke it right here! . I discussed w/pt that he cannot and should not do that. I also told the pt the safety concerns that go a long w/using a corporate associate attorney and smoking in a hospital. We told the pt that we would page the hospitalistto come down and see him and left the room. Note * Alessio TORRES, [facility]: PERFORM, MODIFY Event Display: Discharge/Transfer Note Hospital Authored Date: Patient: ??JAY SOL ? Age:??52 Years?Sex:??Male?:??1970?? Patient Information Discharge Location: [facility] Primary Care Physician: Preet Sofia MD Admit Date/Time: 11/02/22 02:09 Discharge Disposition Discharge Disposition: Home: No Services Discharge Diagnosis Heart failure with reduced ejection fraction (I50.20) Hyperlipidemia (E78.5) Chronic kidney disease (CKD) stage G2/A2, mildly decreased glomerular filtration rate (GFR) [id number] mL/min/1.73 square meter and albuminuria creatinine ratio between 30-299 mg/g (N18.2) Hypothyroidism (E03.9) Severe obesity (E66.01) Shortness of breath (R06.02) Acid reflux Chronic kidney disease (CKD) stage G2/A2, mildly decreased glomerular filtration rate (GFR) [id number] mL/min/1.73 square meter and albuminuria creatinine ratio between 30-299 mg/g Cigarette smoker Coronary artery disease, hx STEMI, DE stent to LAD Hyperlipidemia Hypertension Hypothyroidism Marijuana smoker Morbid obesity Obstructive sleep apnea Post traumatic stress disorder (PTSD) Prediabetes ?? _ Discharge Medications Acetaminophen (Tylenol Extra [...] as needed for severe pain. 7 day supply. Levothyroxine (levothyroxine 0.2 mg oral tablet)?1?tab(s)?200?Microgram?By Mouth?Daily Melatonin (melatonin 3 mg oral tablet)?3?Milligram?By Mouth?Daily at bedtime?as needed?Insomnia Miscellaneous Rx (Bariatric Walker)?See Instructions?Dx - Weakness / Leg Pain Miscellaneous Rx (bariatric commode)?See Instructions?Dx - Weakness / Leg Pain Nitroglycerin (nitroglycerin 0.4 mg sublingual tablet)?1?tab(s)?0.4?Milligram?Sublingual?Every 5 minutes?as needed?Chest Pain Pantoprazole (pantoprazole 20 mg oral delayed release tablet)?1?tab(s)?20?Milligram?By Mouth?Daily Polyethylene Glycol 3350 (MiraLax oral powder for reconstitution)?17?gram?By Mouth?Daily?as needed?Constipation?dissolve in water before taking sacubitril-valsartan (Entresto 24 mg-26 mg oral tablet)?1?tab(s)?By Mouth?2 times a day Spironolactone (spironolactone 25 mg oral tablet)?25?Milligram?1?tablet?By Mouth?Daily torsemide (torsemide 20 mg oral tablet)?1?tab(s)?20?Milligram?By Mouth?2 times a day ? Quality Measures ? Medications Started N/a Medications Discontinued N/a Doses Changed N/a PCP Follow-Up/Heads-Up Medication non-compliance for CHF exxacerbation Future Appointments 2022 4:20 PM EDT ?? With: Puneet TORRES, [place] Where: [facility] [address] [place] [id number] Status: Pending Objective Assessment and Plan Heart failure with reduced ejection fraction (I50.20):??Patient with HFrEF presented with sign of CHF and was treated with aggressive IV diuresis with Lasix which lead to significant improvement in his clinical condition and we were able to wean him off 2 L oxygen on admission. Cardiology was also consulted who recommended no inpatient workup with outpatient f/u. Most likely reason for patient's ADHF is medication non-compliance. He also had been non-complaint with IV Lasix and took out his IV line demanding to leave the hospital. Patient appears to be hemodynamically stable with beingn labs and will discharge the patient on hishome medications with OP f/u with PCP and Cardiology. ?? - Continue HM: Torsemide 20 mg BID, Coreg BID, Entresto BID, Spironolactone and Aspirin??as prescribed - F/u with PCP and cardiology?ACEI or ARB for LVSD:??ARB has been ordered ?? Hyperlipidemia (E78.5):??Continue HM: Lipitor ?? Chronic kidney disease (CKD) stage G2/A2, mildly decreased glomerular filtration rate (GFR) [id number] mL/min/1.73 square meter and albuminuria creatinine ratio between 30-299 mg/g (N18.2):??Continue to monitor ?? Hypothyroidism (E03.9):??Continue HM: Lipitor ?? Discharge Planning:??Home ? Vital Signs?? Temperature: 97.3 DegF (11/03/22 08:02:00) Temperature Route: Oral (11/03/22 08:02:00) Pulse Rate: 75 bpm (11/03/22 08:02:00) Respiratory Rate: 20 br/min (11/03/22 12:12:00) Vented: No (11/03/22 06:27:00) Systolic Blood Pressure:??148 mm Hg??High (11/03/22 08:02:00) Diastolic Blood Pressure:??86 mm Hg??High (11/03/22 08:02:00) Blood pressure sites: Arm, right (11/03/22 08:02:00) Mean Arterial Pressure: 107 mm Hg (11/03/22 08:02:00) Pulse Pressure: 62 mm Hg (11/03/22 08:02:00) Oxygen Saturation:??91 %??Low (11/03/22 08:32:00) Mode of Delivery (Oxygen): Room air (11/03/22 08:32:00) Early Warning Score: 4 (11/03/22 12:12:40) ? . Physical Exam Constitutional: Alert, in no distress. Mental Status: Oriented to person, place and time. Head: Normocephalic. Eyes: Pupils are equal, round and reactive to light. Extraocular muscles intact. Ear, Nose and Throat: Oropharynx clear, mucous membranes moist. Ears and nose without masses, lesions or deformities. Trachea midline. Neck: Supple, Full range of motion. Respiratory: B/l equal BS with basal crackles and wheezing but maintaining saturation on RA Cardiovascular: S1 S2 regular. No murmurs, rubs or gallops. Gastrointestinal: Abdomen soft, non-tender, non-distended. Normal bowel sounds. No pulsatile mass. No hepatosplenomegaly. Genitourinary: No costovertebral angle tenderness. Neurologic: Cranial nerves II-XII grossly intact. No focal neurological deficits. Flexor plantar response. Moves all extremities spontaneously. Sensation intact bilaterally. Skin: No rashes or lesions. No petechiae or purpura.?? Musculoskeletal: No cyanosis or clubbing. No gross deformities. Normal range of motion. Heme/Lymphatics/Immun: Palpation of neck reveals no swelling or tenderness of neck nodes. Palpationof groin reveals no swelling or tenderness of groin nodes. Psychiatric: Normal mood and affect [facility] curbsided Pending Results No Pending Results Follow-Up Appointments Added Follow Up ?Time Frame ?Comments Preet Sofia MD?Within one week Post Discharge Care Diet: Cardiac diet Activity: As tolerated Condition: ?? Fair Home Health Face to Face ^HomeHealthFTF Results Discharge Labs BLOOD COUNT & DIFF WBC 9.5 k/mm3 ()?? 11/01/2022 21:47 RBC 4.21 m/mm3 (Low)?? 11/01/2022 21:47 Hgb 12.7 Gm/dL (Low)?? 11/01/2022 21:47 Hct 39.7 % (Low)?? 11/01/2022 21:47 MCV 94.3 femtoliters (High)?? 11/01/2022 21:47 MCH 30.2 pg ()?? 11/01/2022 21:47 MCHC 32.0 g/dL (Low)?? 11/01/2022 21:47 Platelet Count 304 k/mm3 ()?? 11/01/2022 21:47 RDW-SD 50.6 femtoliters (High)?? 11/01/2022 21:47 MPV 9.4 femtoliters ()?? 11/01/2022 21:47 Nucleated RBC (Automated) 0.0 #/100 WBC'S ()?? 11/01/2022 21:47 Abs. NRBC 0.0 k/mm3 ()?? 11/01/2022 21:47 Abs. Neut 6.5 k/mm3 ()?? 11/01/2022 21:47 Abs. Lymph 2.2 k/mm3 ()?? 11/01/2022 21:47 Abs. [place] 0.7 k/mm3 ()?? 11/01/2022 21:47 Abs. Eo 0.1 k/mm3 ()?? 11/01/2022 21:47 Abs. Baso 0.0 k/mm3 ()?? 11/01/2022 21:47 Neut % 67.9 % ()?? 11/01/2022 21:47 Lymph % 22.9 % ()?? 11/01/2022 21:47 [place] % 7.4 % ()?? 11/01/2022 21:47 Eos % 1.2 % ()?? 11/01/2022 21:47 Baso % 0.2 % ()?? 11/01/2022 21:47 Imm Gran 0.4 % ()?? 11/01/2022 21:47 Abs. Imm Gran 0.0 k/mm3 ()?? 11/01/2022 21:47 ?? CARDIAC Nt-Probnp 1647 pg/mL (High)?? 11/01/2022 21:47 High Sensitivity Troponin (HSTnT) 75 ng/L (Critical)?? 11/01/2022 21:47 ?? CHEM GENERAL Sodium 139 mmol/L ()?? 11/03/2022 03:14 Potassium 4.8 mmol/L ()?? 11/03/2022 03:14 Chloride 100 mmol/L ()?? 11/03/2022 03:14 Bicarbonate Level 28 mmol/L ()?? 11/03/2022 03:14 Anion Gap 11 ()?? 11/03/2022 03:14 Glucose Level 104 mg/dL (High)?? 11/03/2022 03:14 BUN 26 mg/dL (High)?? 11/03/2022 03:14 Creatinine-Blood 0.9 mg/dL ()?? 11/03/2022 03:14 Estimated GFR Creatinine 104 ML/MIN/1.73 M2 ()?? 11/03/2022 03:14 Calcium 8.3 mg/dL (Low)?? 11/01/2022 21:47 Magnesium 2.3 mg/dL ()?? 11/03/2022 03:14 ? HEME OTHER Hold Blue Top SPECIMEN DISCARDED AFTER 4 HOURS. ()?? 11/01/2022 21:47 ? VIROLOGY COVID-19 by RT-PCR NEGATIVE ()?? 11/02/2022 02:13 ? 40_ minutes spent on discharge Patient Care team information Care Team Personnel Name: Brenda Vanegas RN Position: [facility] RN Member Role: Primary Care Nurse Name: Renae Rashid RN Position: [facility] RN Member Role: Primary Care Nurse Name: Lizbeth Reardon RN Position: [facility] RN Member Role: Primary Care Nurse Name: Brittny Griffin RN Position: [facility] RN [...] Primary Care Member Role: PCP Address: Address: [address] [place] [id number]- Name: Betsey Harvey [facility] Care Nurse Name: Sweta Lang RN Position: [facility] RN Member Role: Primary Care Nurse Name: Kely Morton RN Position: [facility] RN Member Role: Primary Care Nurse Name: Geo LOVE Attending Position: [facility] ED Medicine MD Name: Wilmer James RN Position: [facility] ED RN W/OE and Tasks Member Role: Patient Care Provider Name: Michael Leone RN Position: [facility] ED RN W/OE and Tasks Member Role: Patient Care Provider Care Team Related Persons Name: DIAN RODGERS Address: [place] [address] Name: KT LANDEROS Address: [place] [address] Name: TAE QUIROZ Address: home [place] [id number]
--- OUTSIDE RECORDS SUMMARY | 2023-01-20 23:59 | XMS_ITS | Continuity of Care Document ---
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 Phone Preet Sofia MD Primary Care Physician Encounter [facility] Date(s): 10/25/22 - 11/24/22 [facility] [address] [place] [id number] Allergies, Adverse Reactions, Alerts No Known Allergies Immunizations Given and Recorded Vaccine Date Status Refusal Reason SARS-CoV-2 (COVID-19) mRNA-1274 vaccine 05/11/21 G iven influenza virus vaccine, [...] Patient Refuses 1[facility] History[facility] 3[facility] History: [facility] 4Location History: [facility] Medications aspirin 81 mg oral delayed release [...] Daily, # 30 tablet, 0 Refills, Maintenance, 11/22/22 14:06:00 EDT, Tablet, [facility]/pharmacy #[id number], 178, cm, 11/22/22 11:40:00 EDT, Height, 164.9, kg, 11/18/22 18:49:00 EDT, Dry Weight Start Date: 11/22/22 Stop Date: 12/22/22 Status: Ordered bariatric commode bariatric [...] times a day, # 60 tablet, Refills 0, Tot. Refills 0, Maintenance, 11/22/22 14:14:00 EDT, Route to Pharmacy Electronically, [facility]/pharmacy #[id number], Partial fill upon patient request if the prescription is for a schedule II opioid drug... Start Date: 11/22/22 Stop Date: 12/22/22 Status: Ordered Chem 7 in [...] 0 Refills, Maintenance, 11/10/22 20:43:00 EDT, Tablet, [facility]/pharmacy #[id number], Partial fill upo... Start Date: 11/10/22 Status: Ordered duloxetine 30 mg oral enteric coated capsule 1 capsule = 30 mg, By Mouth, Daily at bedtime, # 30 capsule, 1 Refills, Maintenance, 11/22/22 14:06:00 EDT, Capsule, [facility]/pharmacy #[id number], Partial fill upon patient request if the prescription is for aschedule II opioid drug., 178, cm, 11/22/22 11:40:0... Start Date: 11/22/22 Stop Date: 01/21/23 Status: Ordered Eliquis 5 mg oral tablet 1 tablet = 5 mg, By Mouth, 2 times a day, # 60 tablet, 5 Refills, Maintenance, 11/22/22 14:08:00 EDT, Tablet, [id number], Partial fill upon patient request if the prescription is for a schedule II opioid drug., 178, cm, 11/22/22 11:40:00 EDT,... Start Date: 11/22/22 Status: Ordered Entresto 24 mg-26 mg oral tablet 1 tablet, By Mouth, 2 times a day, # 60 tablet, 0 Refills, Maintenance, 11/22/22 14:07:00 EDT, Tablet, [id number], 1 tablet By Mouth 2 times a day,x30 days, 178, cm, 11/22/22 11:40:00 EDT, Height, 164.9, kg, 11/18/22 18:49:00 EDT, Dry Weight Start Date: 11/22/22 Stop Date: 12/22/22 Status: Ordered Hospital Bed See Instructions, # 1 each, Maintenance, semi-electric adjustable hospital bed , HOB elevated >30degr most of time. Duration: 2 yrs. Dx: I50.22, 10/12/22 17:37:00 EDT, Compound Start Date: 10/12/22 Status: Ordered levothyroxine 0.2 mg oral tablet 1 tablet = 200 mcg, By Mouth, Daily, # 30 tablet, 3 Refills, Maintenance, 11/22/22 14:07:00 EDT, Tablet, [id number], 178, cm, 11/22/22 11:40:00 EDT, Height, 164.9, kg, 11/18/22 18:49:00 EDT, Dry Weight Start Date: 11/22/22 Stop Date: 03/22/23 Status: Ordered melatonin 3 mg oral tablet [...] Maintenance, 10/19/22 20:08:00 EDT, REC Powder, [facility]/pharmacy #[id number], 17 Gm By Mouth Daily,PRN:Constipation,Instr:dissolve in water before taking, 180, cm,... Start Date: 10/19/22 Status: Ordered nitroglycerin 0.4 mg sublingual tablet 1 tablet = 0.4 mg, Sublingual, Every 5 minutes, PRN Chest Pain, # 100 tablet, 0 Refills, Maintenance, 06/09/21 12:34:00 EST, Tablet, [facility], Partial fill upon patient request if theprescription is for a schedule II opioid drug., 180... Start Date: 06/09/21 Status: Ordered pantoprazole 20 mg oral delayed release tablet 1 tablet = 20 mg, By Mouth, Daily, # 30 tablet, 1 Refills, Maintenance, 11/22/22 14:07:00 EDT, EC Tablet, 178, cm, 11/22/22 11:40:00 EDT, Height, 164.9, kg, 11/18/22 18:49:00 EDT, Dry Weight Start Date: 11/22/22 Stop Date: 01/21/23 Status: Ordered Physical Therapy Physical Therapy, See Instructions, # 1 each, Refills 0, Tot. Refills 0, Maintenance, Dx: CHF exacerbation, Acute DVT, 11/22/22 15:17:00 EDT, Supply Start Date: 11/22/22 Status: Ordered spironolactone 25 mg oral tablet 25 mg, 1, tablet, By Mouth, Daily, # 30 tablet, Refills 0, Tot. Refills 0, Maintenance, 11/22/22 14:07:00 EDT, Route to Pharmacy Electronically, [facility]/pharmacy #[id number], 178, cm, 11/22/22 11:40:00 EDT, Height, 164.9, kg, 11/18/22 18:49:00 EDT, Dry Weight Start Date: 11/22/22 Stop Date: 12/22/22 Status: Ordered Symbicort 80mcg/4.5mcg Inhaler 2, puffs, Inhalation, 2 times a day, in the morning and the evening use with spacer chamber rinse mouth and throat after use, # 1 each, Refills 3, Tot. Refills 3, Maintenance, 11/22/22 14:06:00 EDT, Aerosol, Route to Pharmacy Electronically, [id number]... Start Date: 11/22/22 Status: Ordered torsemide 20 mg oral tablet 1 tablet = 20 mg, By Mouth, 2 times a day, # 60 tablet, 0 Refills, Maintenance, 11/22/22 14:08:00 EDT, Tablet, [facility]/pharmacy #[id number], 178, cm, 11/22/22 11:40:00 EDT, Height, 164.9, kg, 11/18/22 18:49:00EDT, Dry Weight Start Date: 11/22/22 Stop Date: 12/22/22 Status: Ordered Tylenol Extra Strength 500 mg oral tablet 1 tablet = 500 mg, By Mouth, 3 times a day, PRN Pain , Moderate, # 24 tablet, 5 Refills, Maintenance, 10/19/22 20:00:00 EDT, Tablet, [facility]/pharmacy #[id number], 180, cm, 10/19/22 4:49:00 EDT, Height, 181, kg, 09/26/22 14:48:00 EDT, Dry Weight Start Date: 10/19/22 Stop Date: 01/31/23 Status: Ordered Problem List Condition [...] with a cyst on CT at [facility] 04/2019 Confirmed 04/2019 Active Coronary artery [...] Confirmed Active Obstructive sleep apnea Confirmed Active .Heel Blacker: Lucita Segal [phone], [facility]. [facility] Confirmed Active Post traumatic stress disorder (PTSD) Confirmed 1999 Active Severe obesity Confirmed Active 1-Seen in CT scan of the abdomen done at [facility] on 08-08-16 Social History Social History Type Response Smoking Status 10 or more cigarette s (1/2 pack or more)/day in last 30 days; Interested in cessation: No; Patient wants NRT during admission No entered on: 06/03/21 Sex Male Patient Care team information Care Team Personnel Name: Jim Munguia RN Position: [facility] RN Supv Member Role: Primary Care Nurse Name: Brenda Vanegas RN Position: S RN Member Role: Primary Care Nurse Name: Renae Rashid RN Position: S RN Member Role: Primary Care Nurse Name: Lizbeth Reardon RN Position: S RN Member Role: Primary Care Nurse Name: Brittny Griffin RN Position: S RN Member Role: Primary Care Nurse Name: Phill Michelle Position: [facility] RN Supv Member Role: Primary Care Nurse Name: Rickey Cruz RN Position: S RN Member Role: Primary Care Nurse Name: Brandee Bee RN Position: S RN Member Role: Primary Care Nurse Name: Janie Gamez RN Position: S RN Member Role: Primary Care Nurse Name: Toby Trotter RN Position: [facility] RN Supv Member Role: Primary Care Nurse Name: Jing Santiago RN Position: S RN Member Role: Primary Care Nurse Name: Sven Bustos RN Position: S RN Member Role: Primary Care Nurse Name: Sharron Schaefer RN Position: S RN Member Role: Primary Care Nurse Name: Franca Luis LPN Position: S RN Member Role: Primary Care Nurse Name: Sheryl Linda RN Position: [facility] RN Member Role: Primary Care Nurse Name: Zara Aldridge RN Position: [facility] RN Member Role: Primary Care Nurse Name: Preet Sofia MD Position: [facility] Physician - Primary Care Member Role: PCP Address: Address: [address] [place] [id number] Name: Betsey Harvey RN Position: [facility] RN Member Role: Primary Care Nurse Name: Camila Cervantes RN Position: [facility] RN Member Role: Primary Care Nurse Name: Aruna Warren RN Position: [facility] RN Member Role: Primary Care Nurse Name: Naomi Kyle RN Position: [facility] RN Member Role: Primary Care Nurse Name: Pavan Espinoza RN Position: [facility] RN Member Role: Primary Care Nurse Name: Lynne Shah RN Position: [facility] RN Member Role: Primary Care Nurse Name: Ashwini Larson RN Position: [facility] SN RN Member Role: Primary Care Nurse Name: Darren Ortega RN Position: [facility] RN Member Role: Primary Care Nurse Name: Lorraine Good RN Position: [facility] RN Member Role: Primary Care Nurse Name: Mohan Quijano RN Position: [facility] RN Member Role: Primary Care Nurse Name: Shaina Nagy RN Position: [facility] RN Member Role: Primary Care Nurse Name: Sarah Gordon RN Position: [facility] Onco RN Member Role: Primary Care Nurse Name: Catalina Cook RN Position: [facility] RN Member Role: Primary Care Nurse Name: Sweta Lang RN Position: [facility] RN Member Role: Primary Care Nurse Name: Kely Morton RN Position: [facility] RN Member Role: Primary Care Nurse Care Team Related Persons Name: DIAN RODGERS Address: [place] [address] Name: LETIKT Address: [place] [address] Name: TAE QUIROZ Address: home [place] [id number]
--- OUTSIDE RECORDS SUMMARY | 2023-01-20 23:59 | XMS_ITS | Continuity of Care Document ---
Author Name Unknown Organization [facility] Address [address] [place] [address]- Care Team Providers Care Homicide Squad Commanding Officer Name Role Phone Preet Sofia MD Primary Care Physician En[place] [facility] [place](s): 12/21/22 - 12/23/[address] [address] Discharge Disposition: A-D/C Home Attending Physician: Jermain Ponce MD Admitting Physician: Jermain Burch MD Referring Physician: Jermain Burch MD Allergies, Adverse Reactions, Alerts No Known Allergies Immunizations Given and Recorded Vaccine Date Status Refusal Reason SARS-CoV-2 (COVID-19) mRNA-1271 vaccine 05/11/21 G iven influenza virus vaccine, inactivated 1 02/08/14 Re corded hepatitis B adult vaccine 01/22/13 Recorded hepatitis B adult vaccine 08/12/10 Recorded hepatitis B adult vaccine 2 03/09/10 Recorded Hepatitis A Adult Vaccine 3 08/12/10 Recorded Hepatitis A Adult Vaccine 4 02/27/10 Recorded 1Location History: [facility] 2Location History: [facility] 3Location History: [facility] 4Location History: [facility] Medications aspirin 81 mg oral [...] 11 Refills, Maintenance, 12/22/22 14:06:00 EDT, Tablet, [facility]/pharmacy #[id number], 178, cm, 11/22/22 18:01:00 EDT, Height, 164.9, kg, 11/18/22 18:49:00 EDT, Dry Weight Start Date: 12/22/22 Status: Ordered bacitracin topical 500 u/gm ointment See Instructions, Wash feet with soap and water twice daily, dry thoroughly, then apply a thin layer of bacitracin ointment to open areas and cover with clean socks or clean sterile dressings., # 30 Gm, 0 Refills, Acute 12/30/22 10:16:00 EDT, 12/23/22... Start Date: 12/23/22 Stop Date: 12/30/22 Status: Ordered bariatric commode bariatric commode, See [...] carvedilol 3.125 mg oral tablet 6.25 mg, Tablet, By Mouth, Hold for: Heart rate less than 50, 12/23/22 9:00:00 EDT Start Date: 12/23/22 Stop Date: 12/23/22 Status: Completed carvedilol 3.125 mg oral tablet 6.25 mg, 2, tablet, By Mouth, 2 times a day, # 60 tablet, Refills 5, Tot. Refills 5, Maintenance, 12/22/22 14:14:00 EDT, Route to Pharmacy Electronically, [facility]/pharmacy #[id number], 178, cm, 11/22/22 18:01:00 EDT, Height, 164.9, kg, 11/18/22 18:49:00 EDT, Start Date: 12/22/22 Status: Ordered Dilaudid 2 mg oral tablet = 2 mg, By Mouth, Every 4 hours, PRN Pain , Moderate, for 5 days, # 24 tablet, 0 Refills, Acute 12/28/22 10:10:00 EDT, 12/23/22 10:10:00 EDT, Tablet, [facility]/pharmacy #[id number], Partial fill upon patient request if the prescription is for a schedule II opioid... Start Date: 12/23/22 Stop Date: 12/28/22 Status: Ordered Dilaudid 4 mg oral tablet 4 mg, Tablet, By Mouth, Every 4 hours, PRN for Pain , Severe, Routine, 12/22/22 16:20:00 EDT Start Date: 12/22/22 Stop Date: 12/23/22 Status: Discontinued duloxetine 30 mg oral enteric [...] By Mouth 2 times a day,x30 days, 178nirali, 11/22/22 18:01:00 EDT, Height, 164.9, kg, 11/18/22 [...] 11 Refills, Maintenance, 03/22/23 14:07:00 EST, Tablet, [facility]/pharmacy #[id number], 178, cm, 11/22/22 18:01:00 EDT, Height, 164.9, kg, 11/18/22 18:49:00 EDT,Dry Weight Start Date: 03/22/23 Stop Date: 03/16/24 Status: Ordered metFORMIN 500 mg oral tablet, extended release = 500 mg, By Mouth, Daily, # 30 tablet, 0 Refills, Maintenance, 12/23/22 10:10:00 EDT, ER Tablet, [facility]/pharmacy #[id number], Partial fill upon patient request if the prescription is for a schedule II opioiddrug., 180, cm, 12/23/22 9:30:00 EDT, Height, 153.5... Start Date: 12/23/22 Status: Ordered MiraLax oral powder for reconstitution = 17 Gm, By Mouth, Daily, PRN Constipation, dissolve in water before taking, # 527 Gm, 1 Refills, Maintenance, 10/19/22 20:08:00 EDT, REC Powder, [facility]/pharmacy #[id number], 17 Gm By Mouth Daily,PRN:Constipation,Instr:dissolve in water before taking, 180, cm,... Start Date: 10/19/22 Status: Ordered Miscellaneous Rx 0 Refills, Maintenance, [facility]C, 12/21/22 17:28:00 EDT Start Date: 12/21/22 Status: Ordered nitroglycerin 0.4 mg sublingual tablet 1 tablet = 0.4 mg, Sublingual, Every 5 minutes, PRN Chest Pain, # 100 tablet, 0 Refills, Maintenance, 06/09/21 12:34:00 EST, Tablet, [facility], Partial fill upon patient [...] 14:06:00 EDT, Aerosol, Route to Pharmacy Electronically, [id number]... Start Date: 11/22/22 Status: Ordered torsemide 20 mg oral tablet 1 tablet = 20 mg, By Mouth, 2 times a day, # 60 tablet, 5 Refills, Maintenance, 12/22/22 14:08:00 EDT, Tablet, [facility]/pharmacy #[id number], 178, cm, 11/22/22 18:01:00 EDT, [...] consistent with a cyst on CT at [facility] 04/2019 Confirmed 04/2019 Active Coronary artery [...] Confirmed Active Obstructive sleep apnea Confirmed Active .Virtualization Consultant: Lucita Segal [phone], Former[facility]. CPP Confirmed Active Post traumatic stress disorder (PTSD) Confirmed 1999 Active Pulmonary embolus most branches of R lung, Dx at [place], [place] on 11/28/22. L popliteal & peroneal DVT 11/18/22 Confirmed Active Severe obesity Confirmed Active 1-Seen in CT scan of the abdomen done at [facility] on 08-08-16 Vital Signs Most recent to oldest [Reference Range]: 1 2 3 Height 180 cm (12/23/22 11:41 AM) 180 cm (12/23/22 7:40 AM) 180 cm (12/22/22 10:54 PM) Weight 153.5 kg (12/21/22 5:48 PM) 153.5 kg (12/21/22 5:10 PM) Oxygen Saturation [94-100 %] 95 % (12/23/22 11:41 AM) 94 % 1 (12/23/22 7:40 AM) 93 % *L* (12/22/22 10:54 PM) Pulse Rate [55-90 bpm] 72 bpm (12/23/22 11:41 AM) 78 bpm (12/23/22 8:38 AM) 64 bpm (12/23/22 7:40 AM) Body Mass Index [18.5-24.99 kg/m2] 47.38 kg/m2 *>HHI* (12/21/22 5:48 PM) Blood Pressure [90-138/55-84 mm Hg] 100/57mm Hg (12/23/22 11:41 AM) 156/74mm Hg *H* (12/23/22 8:38 AM) 156/74mm Hg 2 *H* (12/23/22 7:40 AM) Respiratory Rate [16-30 br/min] 16 br/min (12/23/22 12:10 PM) 16 br/min (12/23/22 11:41 AM) 16 br/min (12/23/22 7:40 AM) Temperature [96.8-100.4 DegF] 98.5 DegF (12/23/22 11:41 AM) 97.8 DegF (12/23/22 7:40 AM) 97.3 DegF (12/22/22 10:54 PM) Mode of Delivery (Oxygen) Room air (12/23/22 11:41 AM) Room air (12/23/22 7:40 AM) Room air (12/22/22 10:54 PM) Blood pressure sites Arm, right (12/23/22 11:41 AM) Arm, left (12/23/22 7:40 AM) Arm, left (12/22/22 10:54 PM) Temperature Route Oral (12/23/22 11:41 AM) Oral (12/23/22 7:40 AM) Oral (12/22/22 10:54 PM) Dry Weight 153.5 kg (12/21/22 5:48 PM) Weight Obtained Via Bed scale (12/21/22 5:10 PM) 1Result Comment: Out of range VS Reported to KIN Daniel 2Result Comment: Out of range VS Reported to KIN Daniel Social History Social History Type Response Smoking Status 10 or more cigarette s (1/2 pack or more)/day in last 30 days; Interested in cessation: No; Patient wants NRT during admission No entered on: 06/03/21 Sex History and physical note * Lukas Leo NP: PERFORM Event Display: History and Physical Hospital Authored Date: Patient: ??BENNY SOL ? Age:??52 Years?Sex:??Male?:??1970?? Chief Complaint/Reason for Consultation Foot pain History of Present Illness This is a 52-year-old male with past medical history of ischemic cardiomyopathy, EF 20 to 25%, CAD status post PTCA, morbid obesity, IONA noncompliant with CPAP, polysubstance abuse, hypertension, prediabetes, CKD, depression, anxiety, PTSD, recently hospitalized at [facility] and left yesterday AGAINST MEDICAL ADVICE secondary to pulmonary embolism and diabetic foot ulcer. Initially admitted to [facility] on 12/16 for bilateral diabetic foot infection.?? States that he was having increased pain, swelling to bilateral feet with multiple wounds with bloody and purulent discharge.?? Also had a recent diagnosisof pulmonary embolism, sounds though he was started on Eliquis from a hospital in [place], however his not entirely clear how compliant he was with his Eliquis.?? Patient is currently homeless and having multiple social issues.?? He left [facility] yesterday AGAINST MEDICAL ADVICE when he was told hewas not able to go outside after 4 days of vancomycin and Zosyn. In the ED chest x-ray shows no cardiopulmonary disease.?? CTA chest 12/16 shows acute pulmonary emboli without findings for submassive PE.?? X-ray right foot on 12/17 shows no evidence of osteomyelitis.?? Left foot x-ray 12/16 shows minimally displaced fracture at the base of the fifth metatarsal.?? Labs show no leukocytosis, creatinine 1.1 improved from 1.42 days ago, troponin 70 flat from admission, COVID-19 negative.?? He is afebrile saturating 98% on 2 L nasal cannula with stable blood pressures and pulse. On exam patient is resting comfortably in his bed.?? Heart is regular rate and rhythm.?? Lungs are clear to auscultation bilaterally.?? Abdomen is soft nontender nondistended.?? He has multiple scabbed and bleeding ulcerations to bilateral feet prickly on the toes with unkempt and long toenails.?? No clear erythema.?? He denies fever, chills, chest pain, cough, dyspnea, abdominal pain, nausea, vomiting, diarrhea, dysuria. Review of Systems General: Bliateral foot pain. Good appetite. Denies fever, chills, sweats. Skin: As above HEENT: Denies vision changes, dizziness, headache, cold symptoms. Cardiac: Denies chest pain?? Vascular: Denies edema Pulmonary: Denies SOB, cough, wheeze. GI: Denies abdominal pain, nausea, vomiting, diarrhea, constipation. : Denies dysuria Neurological: Denies weakness, dizziness, syncope. Psych: Appropriate affect and mood. Engages appropriately. All other systems reviewed and negative except as noted in HPI?? Objective Vital Signs?? Temperature: 98.5 DegF (12/21/22 17:48:00) Temperature Route: Oral (12/21/22 17:48:00) Pulse Rate: 84 bpm (12/21/22 17:48:00) Respiratory Rate: 18 br/min (12/21/22 17:48:00) Systolic Blood Pressure:??143 mm Hg??High (12/21/22 17:48:00) Diastolic Blood Pressure: 81 mm Hg (12/21/22 17:48:00) Blood pressure sites: Arm, left (12/21/22 17:48:00) Mean Arterial Pressure: 102 mm Hg (12/21/22 17:48:00) Pulse Pressure: 62 mm Hg (12/21/22 17:48:00) Oxygen Saturation: 97 % (12/21/22 17:48:00) Liters per Minute: 2 L/min (12/21/22 15:45:00) Mode of Delivery (Oxygen): Room air (12/21/22 17:48:00) Early Warning Score: 0 (12/21/22 17:49:52) ? Physical Exam General: Lying comfortably in bed. HEENT: Atraumatic, normocephalic. PERRL, EOM grossly intact, nonicteric.?? Neck: Supple, trachea midline. Cardiovascular: S1, S2, no MRG. No edema. Pulmonary: CTAB, no wheeze, no accessory muscle use. Abdomen: Soft, NT, ND, +BS, no rebound tenderness. Extremities: Moves all extremities. Skin: As above Neurological: A&O x3, CN grossly intact. Psychological: Appropriate mood and affect. Assessment/Plan Diagnoses CKD (chronic kidney disease) ??(N18.9) Cellulitis ??(L03.90) Diabetic foot infection ??(E11.628) Fracture of fifth metatarsal bone of left foot ??(S92.352A) Pulmonary embolism ??(I26.99) ?? Assessment:??52-year-old male with past medical history of ischemic cardiomyopathy, EF 20 to 25%, CAD status post PTCA, morbid obesity, OINA noncompliant with CPAP, polysubstance abuse, hypertension, prediabetes, CKD, depression, anxiety, PTSD, recently hospitalized at [facility] and left yesterday AGAINSTMEDICAL ADVICE secondary to pulmonary embolism and diabetic foot ulcer. ?? Diabetic foot infection (E11.628):??Bilateral Purulent cellulitis Patient o left AMA from [facility] on day 4 of vancomycin and Zosyn for purulent cellulitis and bilateral diabetic foot infection. States he has increased pain to the area, no clear erythema noted. He has multiple bleeding and scabbed wounds to both feet which she states he got from wearing sneakers. Patient appears rather unkempt, he is homeless and is untrimmed toenails. X-ray left foot shows minimally displaced fracture at the base of the fifth metatarsal X-ray right foot shows no evidence of osteomyelitis Labs show no leukocytosis Afebrile saturating 98% on 2 L nasal cannula with stable blood pressures and pulse Plan Continue vancomycin, Zosyn Dilaudid as needed Follow-up blood cultures Consider MRI feet Physical therapy, case management, social work ?? Pulmonary embolism (I26.99):? States that he had an extended hospitalization secondary to sepsis while he was in [place], soundsas though??he has had multiple other hospitalizations since then and now and at some point in the past few months he was diagnosed with a pulmonary embolism at an outside facility and was started on Eliquis. Questionable if patient has been compliant with the Eliquis. Sounds though he was restartedduring his recent hospitalization on 12/16, however after leaving AMA yesterday did not take any further doses. He was administered a dose of therapeutic Lovenox in the emergency department this morning. Plan Telemetry monitoring for life-threatening arrhythmias Resume Eliquis at 10 mg twice daily ?? Fracture of fifth metatarsal bone of left foot (S92.352A):? Orthopedics consulted at [facility] recommend strict nonweightbearing status in the left lower extremity, follow-up outpatient with orthopedics ?? CKD (chronic kidney disease) (N18.9):? Creatinine 1.1, at baseline Avoid nephrotoxic medications, renally dose medications ?? Diabetes mellitus POC's, lispro sliding scale ?? Chronic stable conditions IONA???continue CPAP COPD???continue inhalers Anxiety/depression/PTSD???continue duloxetine Hypothyroidism???continue levothyroxine Chronic pain???continue Dilaudid ?? VTE Prophylaxis:??On Eliquis as above ?? Code Status:??Full code Histories Allergies Allergies ?(Active and Proposed Allergies Only) NKA? (Severity: Unknown severity, Onset: Unknown) ? Past Medical History/Problem List Active Problems??(21) .Virtualization Consultant: Lucita Segal [phone], [facility]. BHCPP Acid reflux Cannabinoid hyperemesis syndrome Chronic kidney disease (CKD) stage G2/A2, mildly decreased glomerular filtration rate (GFR) [id number] mL/min/1.73 square meter and albuminuria creatinine ratio [...] most branches of R lung, Dx at [place], [place] on 11/28/22. L popliteal & peroneal DVT 11/18/22 Severe obesity Thoracic cyst- 3.5 cm smoothly marginated thin-walled low-attenuation lesion at the right lateral margin of the esophagus in the azygos esophageal recess measuring 10 Hounsfield units consistent witha cyst on CT at [facility] 04/2019 ? Past Surgical History Median [...] or more)/day in last 30 days. ??Other: [id number]. Electronic Cigarette/Vaping Details:??Electronic Cigarette Use: Never. ? [...] mg oral tablet)?6.25?Milligram?2?tablet?By Mouth?2 times a day Cephalexin (Keflex Capsule)?500?Milligram?By Mouth?Every 6 hours Duloxetine (duloxetine 30 mg oral enteric coated capsule)?1?capsule?30?Milligram?By Mouth?Daily at bedtime?for 30?Days Durable Medical Equipment (Hospital Bed)?See Instructions?semi-electric adjustable hospital bed , HOB elevated >30degr most of time. Duration: 2 yrs. Dx: I50.22 Levothyroxine (levothyroxine 0.2 mg oral tablet)?1?tab(s)?200?Microgram?By Mouth?Daily?for 30?Days Miscellaneous Rx (Bariatric Walker)?See Instructions?Dx - Weakness [...] Recent Labs BLOOD COUNT & DIFF WBC 9.7 k/mm3 ()?? 12/21/2022 06:53 RBC 4.77 m/mm3 ()?? 12/21/2022 06:53 Hgb 14.0 Gm/dL ()?? 12/21/2022 06:53 Hct 44.9 % ()?? 12/21/2022 06:53 MCV 94.1 femtoliters (High)?? 12/21/2022 06:53 MCH 29.4 pg ()?? 12/21/2022 06:53 MCHC 31.2 g/dL (Low)?? 12/21/2022 06:53 Platelet Count 337 k/mm3 ()?? 12/21/2022 06:53 RDW-SD 53.5 femtoliters (High)?? 12/21/2022 06:53 MPV 9.6 femtoliters ()?? 12/21/2022 06:53 Nucleated RBC (Automated) 0.0 #/100 WBC'S ()?? 12/21/2022 06:53 Abs. NRBC 0.0 k/mm3 ()?? 12/21/2022 06:53 Abs. Neut 7.0 k/mm3 ()?? 12/21/2022 06:53 Abs. Lymph 1.7 k/mm3 ()?? 12/21/2022 06:53 Abs. [place] 0.7 k/mm3 ()?? 12/21/2022 06:53 Abs. Eo 0.3 k/mm3 ()?? 12/21/2022 06:53 Abs. Baso 0.0 k/mm3 ()?? 12/21/2022 06:53 Neut % 71.8 % ()?? 12/21/2022 06:53 Lymph % 17.8 % ()?? 12/21/2022 06:53 [place] % 7.0 % ()?? 12/21/2022 06:53 Eos % 2.6 % ()?? 12/21/2022 06:53 Baso % 0.4 % ()?? 12/21/2022 06:53 Imm Gran 0.4 % ()?? 12/21/2022 06:53 Abs. Imm Gran 0.0 k/mm3 ()?? 12/21/2022 06:53 ?? CARDIAC High Sensitivity Troponin (HSTnT) 70 ng/L (Critical)?? 12/21/2022 06:53 ?? CHEM GENERAL Sodium 140 mmol/L ()?? 12/21/2022 06:53 Potassium 3.7 mmol/L ()?? 12/21/2022 06:53 Chloride 96 mmol/L (Low)?? 12/21/2022 06:53 Bicarbonate Level 31 mmol/L (High)?? 12/21/2022 06:53 Anion Gap 13 ()?? 12/21/2022 06:53 Glucose Level 98 mg/dL ()?? 12/21/2022 06:53 BUN 22 mg/dL (High)?? 12/21/2022 06:53 Creatinine-Blood 1.1 mg/dL ()?? 12/21/2022 06:53 Estimated GFR Creatinine 86 ML/MIN/1.73 M2 ()?? 12/21/2022 06:53 Calcium 9.7 mg/dL ()?? 12/21/2022 06:53 ?? HEME OTHER Hold Blue Top SPECIMEN DISCARDED AFTER 4 HOURS. ()?? 12/21/2022 06:53 ?? TOXICOLOGY/TDM Vancomycin Level, Random 15.3 mg/L ()?? 12/20/2022 00:01 ?? URINE OTHER Est Creatinine Clearance 85.22 mL/min ()?? 12/21/2022 07:52 ?? VIROLOGY COVID-19 by RT-PCR NEGATIVE ()?? 12/21/2022 11:42 ? Imaging(s) ?CT Angio Chest ?? 12/16/2022 04:36??by Marietta Mahoney MD ?IMPRESSION: ?? Acute pulmonary emboli. Findings do not meet CT criteria for submassive PE. ?Echocardiogram - Complete ?? 12/17/2022 11:17??by David TORRES Dafne ?Summary ??- The left ventricle is mildly dilated. There is moderate concentric left ??ventricular hypertrophy. The LV systolic function is severely reduced. The ??left ventricular ejection fraction is 15-20 %. There is severe global ??hypokinesis with regional variation. 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 ??There is poor endocardial border definition despite the use of Definity, ??overall basal segments appear to have better function than mid and distal ??segments. There is no evidence of left ventricular thrombus. ??-The right ventricle is poorly visualized. ??-No significant valvular abnormalities. ??- No pericardial effusion. ?Foot Min 3 Views Left ?? 12/16/2022 03:37??by Altaf Mensah MD ?IMPRESSION: ?? Minimally displaced fracture at the base of the fifth metatarsal. ?Foot Min 3 Views Right ?? 12/17/2022 15:21??by Candelario Cardona MD ?IMPRESSION: ?? No radiographic evidence of osteomyelitis. ?US Doppler Ext Lower Venous Bilat ?? 12/19/2022 08:50??by Nilton Jiménez MD ?IMPRESSION: ?? No evidence of deep venous thrombosis. ?? Moderate-sized Jimenes's cyst on the left. ? Consults(s) ?Consultation Note ?? 12/20/2022 15:56??by Alexis Raman MD ? Patient: BENNY SOL ??Age: 52 Years Sex: Male : 1970 ? History of Present Illness ? 52yo M with h/o ischemic cardiomyopathy with reduced EF 20 to 25% on most recent echo, was 10 to 15% prior to that, CAD s/p PTCA, morbid obesity, IONA, noncompliant with CPAP, polysubstance abuse, hypertension, prediabetes, CKD, depression/anxiety, PTSD, bilateral foot drop, prepatellar bursa effusion, previously known to this service with multiple admissions presented to the ED most recently c/o chest pain and SOB. He was found to have a PE. Pt was diagnosed recently during admission at [facility] with DVT but reportedly he did not fill his Rx for Eliquis which was resumed this admission. Pt has known h/o bilateral foot drop concerning for peripheral neuropathy and was evaluated by our service in August of this year. We recommended EMG as an outpatient but apparently the test was never performed.We were asked to evaluate. The patient states he has had drop foot for at least a couple of years. He states he was given AFOs while living in [place] but they caused wound problems on his feet and he no longer has them. The patient states he has numbness from approx the mid calf distally. He denies any numbness or weakness in his hands. His bowels are moving and he has been voiding. The patientis homeless and has been staying with a friend on his porch. The patient has a scooter that he usesfor mobility and occasionally uses a walker. He states he has a brother in [place] but can not stay with him b/c he lives in a walk up apartment. The patient has left foot 5th metatarsal fracture thatwas evaluated by ortho and is NWB to the left foot and plan is to follow up with them in clinic. Hehas bilat foot wounds which were evaluated by vascular surgery. Reportedly he had normal ABIs and no intervention was needed except for local wound care. He was seen by PT today and bed mobility was supervision, he declined OOB activity. ?? Review of Systems ? 14 point review of systems negative except as noted above in HPI. ?? Physical Exam Vitals & Measurements T: 97.6 ??F HR: 65 (Peripheral) RR: 18 BP: 142/65 SpO2: 96% HT: 180 cm WT: 156.9 kg BMI: 48.43 ? Gen: Alert, oriented x 3 in NAD ??HEENT: no JVD, PERRL ??CV: Reg, no murmurs ??Chest: diminished in bases bilat ??Abd: +BS, soft, NT ??Exts: huge left prepatellar bursa fluid collection--no warmth, redness, or tenderness to palpation. ??bilat feet wrapped in Kerlix gauze. ??Neuro: ??CN II-XII intact ??MMT: ??RUE: LUE: ??Delt 5/5 Delt 5/5 ??Bi 5/5 Bi 5/5 ??WE 5/5 WE 5/5 ??Tri 5/5 Tri 5/5 ??FF 5/5 FF 5/5 ?? HF 4/5, quads 4/5, HS 4/5 ??DF and PF 0/5 ?? Assessment/Plan 52yo M with complex medical history including cardiomyopathy with poor EF, bilateral foot drop, left foot fracture and is NWB to the LLE, bilateral foot wounds, morbid obesity and new DVT--non-compliant with anticoagulation. ? Recommendations: ?? Activity: Mobilize with PT NWB LLE. Bowel Regimen: Monitor on current regimen Bladder: Voiding Normally. Cognition/psychopharmacology: at baseline. DVT prophylaxis: Eliquis ?? Neurology: Patient has chronic bilateral foot drop likely peripheral neuropathy. He needs an EMG but has not been able to follow up with much care. Pain Management: Agree with current regimen. Spasticity: None ? Current rehab treatment & further recommendations: ??Occupational Therapy: not needed here. ??Physical Therapy: Currently receiving Speech Therapy: Not needed. ?? Disposition: SNF; social worker school should be closely involved as he has many social determinants of health that are affecting his care. ??Close follow up and coordination of care is needed. ??He will eventually need EMG but can be done as an outpatient. ??AFOs not appropriate at this time due to his bilat foot wounds. ??Ortho did not recommend draining large bursal effusion on the left--does not seem to be particularly bothersome to the patient. ?? Code Status: Full Resuscitation HCP: Has HCP in [facility] ?Consultation Note ?? 12/20/2022 14:59??by Pauline Sanchez RN ?Wound Care Nurse Consult ?? Patient: BENNY SOL Age: 52 years Sex: Male : 1970 Associated Diagnoses: None Author: Pauline Sanchez RN ?? History of Presenting Problem Date of Service 12/20/2022 Reason for referral Wound: Description Location: right and left dorsal and lateral feet; right and left plantar great toe Etiology: neuropathic wounds Description: mix of erupted blisters and stable eschar Measurements: variable Drainage: none Odor: none Edges: irregular; defined; attached Periwound: intact; no erythema, induration or fluctuance noted Pain: denies due to neuropathy ?? Goal of treatment: prevent infection; maintain stability ?? . Wound: Description Location: right and left 5th toe plantar foot wounds Etiology: neuropathic wounds Description: full thickness skin loss; red/pink viable tissue Measurements: 1cm x 1cm x 0.2cm Drainage: small amount of serosanguineous Odor: none Edges: regular; defined; attached Periwound: blood-stained callus Pain: denies due to existing neuropathy ?? Goal of treatment: moist wound healing; infection prevention ?. ? Rt dorsal ?? Rt plantar 1st toe ?? Rt dorsal foot ?? Lt dorsal foot ?? Lt plantar 1st toe ?? Rt plantar 5th toe ?? Lt plantar 5th toe ?? Received wound RN consult to assess foot wounds and provide appropriate topical wound care recommendations. Patient recently admitted to [facility] with c/o SOB and CP. At the end of 10/2022 he was admitted to [facility] and diagnosed with CHF exacerbation and DVT. Reportedly did not fill Eliquis until 11/30/2022. Hospitalized in [place] and diagnosed with PE. Reportedly wore sneakers [...] patient and direct care RN regarding recommendations. Cortext message sent to Dr Gillette. ?? Recommendations: ?? 1. Bilateral dorsal and great toe plantar foot wounds- [place] with Betadine. Allow to air dry. Perform daily 2. right and left plantar 5th toe wounds- Cleanse with NS. Pat dry. Apply Iodosorb. Cover with dry gauze, wrap with tran and secure with tape. Change every 3rd day and as needed for soilage/saturation 3. Continue to provide optimal nutritional support ?? Please reconsult wound RN for deterioration in wound/skin status. ?Consultation Note ?? 12/17/2022 10:32??by Traci Venegas ? Patient: SARAHI??TBENNY ??Age: 52 Years Sex: Male : 1970 ? Chief Complaint/Reason for Consult ?? Left 5th metatarsal fracture ?? This consult was requested by Dr. Hernandez of [facility] medicine. ?? History of Present Illness ? Benny is a 52 year old male who is admitted to [facility] for pulmonary embolism. He has been seen and evaluated at several hospitals in the last 6 months including [facility] ([facility]) in [place], [facility] ([facility] in [place], [facility] and [facility]. Patient with history of leaving AMA. Per review of [facility], available in [facility], the patient was diagnosedand treated for septic arthritis of left knee while admitted at [facility] from 07/14/22-09/17/22. He presented to [facility] with left knee pain on 11/29/[address] scan which demonstrated large deep subcutaneous fluid collection in the anterior lateral aspect of the knee distant with bursitis versus naa glion. He was evaluated by the orthopedic team at [facility] who recommended an MRI, weightbearing as tolerated status and outpatient follow-up. He re-presented to [facility] on 11/30, 12/02, and 12/15 where he was treated for BLE cellulitis with cephalexin and found to have a 5th metatarsal fracture. Was placed into a posterior short leg fiberglass splint, however does not have it at this time. ?? Patient reports bilateral ankle pain only with ambulating. Reports left foot pain. Reports history of bilateral foot drop that developed after his coma, for which he wears AFOs. Reports baseline impaired sensation of BLE. Has developed some wounds on his bilateral feet from walking in his sneakers in [place]. Denies any odorous, creamy, yellow/green drainage from the wounds. Reports that drainage was bloody and clear . Denies any trauma or injury to left foot. Reports several year historyof left knee swelling which has been drained periodically per patient. Denies history of gout or arthritis. Labs without leukocytosis and left shift. Patient has been afebrile this admission. Radiog raphs obtained demonstrate known fifth metatarsal fracture. Orthopedic surgery service was consulted for further evaluation and treatment recommendations of 5th metatarsal fracture. ?? Review of Systems ? Denies fevers and chills. Denies chest pain and shortness of breath. Denies pain in additional joints. Denies abdominal pain. Denies diarrhea and constipation. All others negative as per HPI. ?? Physical Exam Vitals & Measurements T: 97.7 ??F HR: 62 (Peripheral) RR: 20 BP: 149/85 SpO2: 94% HT: 180 cm WT: 131.0 kg BMI: 40.43 ? General: Patient evaluated on hospital stretcher, in NAD, on oxygen via nasal cannula ??HEENT: Atraumatic, normocephalic ??Cardiac: Per hospital medicine provider ??Pulmonary: Per hospital medicine provider ??Abdomen: Per hospital medicine provider ? Right upper extremity: Full, supple, nonpainful range of motion of shoulder, elbow, wrist and digits. No tenderness to palpation. Grossly neurovascularly intact radial, median, ulnar nerve distributions. ? Left upper extremity: Full, supple, nonpainful range of motion of shoulder, elbow, wrist and digits. Appreciate well-healed surgical scar about the anteromedial biceps. No tenderness to palpation. Grossly neurovascularly intact to baseline. ? Right lower extremity: Full, supple, non-painful active range of motion of the hip, knee. Unable toactively DF/PF, flex/extend toes, reportedly baseline. No tenderness to palpation. Calf supple and nontender. Patient able to straight leg raise. Foot is warm to touch. Toes are pink, warm and dry. Dressing appreciated over digits/distal foot which is clean dry and intact. Sensation is diminished about the lateral aspect of the ankle. Sensation is absent about the dorsum/plantar aspect of the foot. Sensation is absent about the toes. Patient reports this is his baseline. ? Left lower extremity: Full, supple, non-painful active range of motion of the hip, knee. Unable to actively DF/PF, flex/extend toes, reportedly baseline. minimal tenderness to palpation about the lateral aspect of the left foot. No erythema, ecchymosis or edema is appreciated. Large infrapatellar fluid collection appreciated. No tenderness to palpation or increased warmth. Calf supple and nontender. Patient able to straight leg raise. Foot is warm to touch. Toes are pink, warm and dry. Dressingappreciated over digits/distal foot which is clean dry and intact. Dressings removed revealing superficial wound to the distal plantar aspect of the fifth digit. Do not appreciate active drainage or p urulence. Sensation is diminished about the lateral aspect of the ankle. Sensation is absent about the dorsum/plantar aspect of the foot. Sensation is absent about the toes. Patient reports this is his baseline. ? Assessment/Plan Impression: Left zone 2 5th metatarsal fracture - non-operative ? Plan: Patient is admitted to the medical service. Hard sole postop shoe ordered for patient in [facility].Recommend strict nonweightbearing status of the left lower extremity, elevation, icing, pain control and DVT prophylaxis. Patient should follow-up outpatient with Dr. Ambrose at [facility] in 2-3 weeks. Can call [phone] to schedule the follow-up appointment once discharged. Discussed the possibility of requiring outpatient orthopedic surgical intervention. This was discussed with the patient who voiced understanding. Questions are asked and answered. ?? Please page inpatient orthopedics #[phone] with further orthopedic questions or concerns. ?? Case will be discussed with Dr. Ambrose. ?Consultation Note ?? 12/17/2022 10:12??by Sandip Benjamin ? Patient: BENNY SOL ??Age: 52 Years Sex: Male : 1970 ? Chief Complaint ?? leg wounds and shortness of breath ?? Reason for Consultation Reason for consult; Left foot wounds ??Requesting physician: Dr Maurice Hernandez ??Consulting physician: Dr True Mcintosh ?? History of Present Illness ? Patient: BENNY SOL ??Age: 52 Years Sex: Male : 1970 Chief Complaint/Reason for Consultation ?? leg wounds and shortness of breath History of Present Illness ??Benny Sol is a 52-year-old male , homelessness, non-compliant, with past medical history of ischemic cardiomyopathy with reduced EF 20 to 25% on most recent echo, was 10 to 15% prior to that, CAD s/p PTCA, morbid obesity, IONA- noncompliant with CPAP, polysubstance abuse, hypertension, prediabetes, CKD, depression/anxiety, PTSD, who was recently admitted at [facility] in end of October where he was managed for heart failure exacerbation and was found to have LLE DVT. He was dischargedwith Eliquis but non compliant. He went to [place] and diagnosed with PE and discharged with Eliquis, still non -compliant or memory problems, was taking it once a day. He also had wounds to bilateral foot and prescribed keflex but also not taking. He is homeless, but currently living at a home's place. He presented to [facility] on 12/16 with chest pressure and shortness of breath, without cough. repeat CTangio does not meet criteria for submassive PE. Started in ED with Lovenox 160 mg, lasix IV and Dilaudid IV. Now , transitioned to po loading dose Eliquis 10 mg BID.Currently on 3L NC, denies respiratory distress. ?? Vascular surgery consulted for Left foot wounds. XRay L foot-soft tissue swelling, has chronic nondisplaced L5, for which ortho to be consulted per primary team. He states he was in a coma for 6 months (likely cardiac arrest, woke up with bilateral feet neuropathy and bilateral foot drop. He is still able to ambulate intermittently , with use of walker. he recently had bought a $82 dollars new shoes and developed skin blisters of both feet a week ago. He occasionally have pain when walking, occasionally at rest, sometimes on one side but not both at same time, mostly intermittently shooting pain. He denies fever/chills/ purulent discharge. ?? Review of Systems ? Constitutional: No weight loss, fever, chills, weakness or fatigue. hx coma x 6 months HEENT: No visual changes, blurriness. No nasal congestion, sore throat. Skin: No rash or itching. Cardiovascular: + chest pressure,non-radiating. No palpitations or pedal edema. Respiratory: +shortness of breath; no cough Gastrointestinal: No anorexia, nausea, vomiting or diarrhea. No abdominal pain or melena or blood in stool. Genitourinary: No burning micturition.. Neurologic: No headache; bilateral chronic peripheral neuropathy with bilateral foot drop; No change in bowel or bladder control. Musculoskeletal: No muscle pain, back pain; Hx L knee injury in the past, has loose patella. Hematologic: No bleeding or bruising. Psychiatric: +hx depression /anxiety/PTSD. Endocrine: No reports of sweating. No cold or heat intolerance. No polyuria or polydipsia. ?? Physical Exam Vitals & Measurements T: 97.7 ??F TMIN: 97.5 ??F TMAX: 97.7 ??F HR: 62 (Peripheral) RR: 20 BP: 149/85 SpO2: 94% WT: 131.0kg ? General appearance: morbidly obese; No apparent distress, appears stated age, on 3L NC, not in respiratory distress ??Head: Normocephalic, atraumatic. ??Cardiac: RRR, no murmurs or gallops. ??Respiratory: Clear to auscultation bilaterally. ??Abdomen: Soft, nontender, nondistended. No guarding or rebound. No palpable mass. large pannus ??Extremities: Able to move all extremities without difficulty. Loose L patella, enlarged soft tissue knee, nontender; Warm and well perfused. ??Left; L1 dry blood blister/scab on dorsal and plantar ; L4,5 dry wound , pink base; no periwound erythema or purulent discharge; no bogginess or fluctuance. ??Right; + dependent rubor,(improves with leg raising) mild edema; L1 lateral dorsal deepithelized superficial wound; L1,4 dry wound/scabbed; L5 oozing skin ulcer with perinecrosis. no purulent discharge or bogginess; chronic numbess of all toes and foot; intact sensory above ankle. ??Neurologic status: Alert and oriented x 3. No focal deficits. Bilateral foot drop/ no dorsi or plantar flexion ??Psych: Mood and affect normal. ??Vascular: Palpable/triphasic bilateral femorals; ??RLE TRiphasic PT/AT, bi DP; LLE: Triphasic DP/PT; biphasic AT ?? Assessment/Plan Benny Sol is a 52-year-old male , homelessness, non-compliant, with past medical history ofischemic cardiomyopathy with reduced EF 20 to 25% on most recent echo, was 10 to 15% prior CAD s/p PTCA, morbid obesity, IONA- noncompliant with CPAP, polysubstance abuse, hypertension, prediabetes, CKD, depression/anxiety, PTSD, had multiple hospitalization at [facility] for shortness of breath/CHF exacerbation, recently diagnosed but non compliant with medications. [place] eventually had PE whileat [place] but still noncompliant on Eliquis. Also, prescribed Keflex for bilateral foot wounds but not taking them. He is homeless, but currently living at a friend's place. He presented to [facility] on [facility]/16 with chest pressure and shortness of breath, without cough. repeat CTangio does not meet criteria for submassive PE. Started in ED with Lovenox 160 mg, lasix IV and Dilaudid IV. Now , transitioned to po loading dose Eliquis 10 mg BID.Currently on 3L NC, denies respiratory distress. ?? Vascular surgery consulted for Left foot wounds but he does have bilateral wounds of great toe 4, 5th toes. He states he was in a coma for 6 months (likely cardiac arrest, woke up with bilateral feetneuropathy and bilateral foot drop. He is still able to ambulate intermittently , with use of walker. He recently had bought new shoes and developed skin blisters of both feet a week ago, likely fromill-fitting shoes with existing neuropathy. He occasionally have pain when walking, occasionally atrest, sometimes on one side but not both at same time, mostly intermittently shooting pain. He denies fever/chills/ purulent discharge. XRay L foot only-soft tissue swelling, has chronic nondisplacedL5, for which ortho to be consulted per primary team. He denies having seen any vascular surgeon inthe past. He has good signals, not threatened foot, hemodynamically stable. non-septic, without leukocytosis. ?? Rec: ??-diabetic diet; tight glucose control ??-Xray R foot to r/o osteo(ordered) ??-wound care; start with soap and water daily; apply betadine paint, Gauze between toes and Kerlixroll ??-cont abx ??-PT eval for multipodus boot for bilateral foot drop ??-STEPHANY(ordered) ??-No emergent surgical intervention indicated; local wound care ??-rest of care by primary medicine team ??-vascular surgery [id number] for questions or concerns ??-Case discussed with attending Dr Mcintosh ? Hospital Progress note * Gisel Daniel RN: PERFORM, SIGN, VERIFY Event Display: Progress Note Hospital Authored Date: Patient: BENNY SOL Age: 52 years Sex: Male : 1970 Associated Diagnoses: None Author: Gisel Daniel RN Findings Problem Related to Alteration in Integumentary : Alteration in Integumentary/new 12/23/2022 10:00 EDT Alteration in Integumentary Related to Other: Neuropathic foot wounds Goals & Outcomes, Integumentary Nutritional intake is adequate for metabolic needs, Pt will maintain adequate fluid & nutritional balance, Pt will maintain intact skin integrity, Wound will progress towards healing Interventions, Integumentary Cleanse all wounds with Normal Saline, Consult Wound Care as needed for further interventions, Encourage & assist pt to change position frequently, Encourage & assist with range of motion exercises, Encourage family participation in pt's care as they are able, Ensure relief modes are on mattress surface & utilized Goals/Interventions, Integumentary Yes Integumentary, Problem Start 12/22/2022 4:20 Reviewed plan with, Integumentary Patient Patient Progression, Integumentary Pt progressing according to plan . Nursing Data Vital Signs : VITAL SIGNS SECTION 12/23/2022 8:05 EDT Early Warning Score 4.00 12/23/2022 7:40 EDT Temperature 97.8 DegF Temperature Route Oral Pulse Rate 64 bpm Respiratory Rate 16 br/min Systolic Blood Pressure 156 mm Hg H Diastolic Blood Pressure 74 mm Hg Blood pressure sites Arm, left Mean Arterial Pressure 101 mm Hg Pulse Pressure 82 mm Hg Oxygen Saturation 94 % Mode of Delivery (Oxygen) Room air . Narrative/Incidental Patient is alert and oriented. He is denying pain. Lungs dim. +2 edema le bilaterally. Provided clean and dry dressings for toe wounds. Patient educated regarding weight bearing. VSS. Denies issues voiding. Bed is in lowest, locked position. Call odom within reach. No new orders at this time. . * Iliana Art RN: SIGN, VERIFY, PERFORM Event Display: Progress Note Hospital Authored Date: [id number] Patient: BENNY SOL Age: 52 years Sex: Male : 1970 Associated Diagnoses: None Author: Iliana Art RN Findings Problem Related to Alteration in Comfort : Alteration in Comfort/new 12/23/2022 3:00 EDT Alteration in Comfort Related to Other: feet wounds Goals & Outcomes: Comfort Pt will report acceptable level of comfort & pain control, Pt will state importance of adhering to pain strategy regime, Pt will demonstrate necessary skills to manage pain, Non-verbal indicators will indicate comfort/pain control Interventions Implemented: Comfort Assess pain using appropriate pain scale/tools, Assess aggravating factors & prevent them accordingly, Assess alleviating factors & promote them accordingly Goals/Interventions, Comfort Yes Comfort, Problem Start 12/22/2022 4:20 Reviewed plan with, Comfort Patient Patient Progression, Comfort Pt progressing according to plan Comfort, Problem Ongoing Yes . Alteration in Integumentary : Alteration in Integumentary/new 12/23/2022 3:00 EDT Alteration in Integumentary Related to Other: Neuropathic foot wounds Goals & Outcomes, Integumentary Nutritional intake is adequate for metabolic needs, Pt will maintain adequate fluid & nutritional balance, Pt will maintain intact skin integrity, Wound will progress towards healing Interventions, Integumentary Cleanse all wounds with Normal Saline, Collaborate w/ provider for PT/OT consults, Consult Wound Care as needed for further interventions, Encourage & assist pt to change position frequently, Encourage & assist with range of motion exercises, Encourage family participation in pt's care as they are able, Ensure relief modes are on mattress surface & utilized, Increase turning frequency if red or blanched areas appear, Interdisciplinary consults as appropriate, Keep bed as flat as tolerated to reduce shearing, Keep linen clean, dry and wrinkle free, Keepskin clean & dry, Maintain sterile technique with dressing changes, Minimize friction, shear and moisture, Monitor reddened areas for continued or increasing reddness, Record extent of impaired skin integrity, Relieve pressure off bony areas, Reposition pt off reddened areas, Teach Pt/caregivers/s of infection, Teach Pt/S.O. risks of & measures to prevent skin breakdown Goals/Interventions, Integumentary Yes Integumentary, Problem Start 12/22/2022 4:20 Reviewed plan with, Integumentary Patient Patient Progression, Integumentary Pt progressing according to plan . Alteration in Respiratory Function (new) : Alteration in Respiratory Function/new 12/23/2022 3:00 EDT Alteration in Resp Status Related to Pulmonary embolism Goals & Outcomes, Respiratory Pt will maintain/resume baseline physical assessment, Pt will notdevelop complications r/t mechanical ventilation, Pt will maintain adequate nutritional intake, Pt will maintain/resume normal fluid/electrolyte balance, Pt will not develop complications r/t immobility Interventions, Respiratory Assess for and report S&S of respiratory distress, Position for comfort & optimal oxygenation, Initiate pulmonary rehab nurse consult, Monitor sputum color & consistency. Report changes to MD, Teach/encourage use of incentive spirometer, Teach the proper use of inhalers, Teach Pt/caregiver Smoking cessation education, Teach purse lip breathing as needed for breathing retraining, Teach tripod positioning to promote air exchange Goals/Interventions, Respiratory Yes Respiratory, Problem Start 12/21/2022 22:34 Reviewed Plan with, Respiratory Patient Patient Progression, Respiratory Patient progressing according to plan . Nursing Data Integumentary Data. : Integumentary Data. 12/22/2022 22:00 EDT Skin Color Normal for ethnicity, Pale Skin Integrity Not intact Sensory Perception No impairment Activity Walks frequently Mobility No limitations Wound Location I Foot, left Wound I, Drainage Amount Minimum Integumentary WNL except . Vital Signs : VITAL SIGNS SECTION 12/23/2022 2:22 EDT Early Warning Score 4.00 12/22/2022 22:55 EDT Early Warning Score 4.00 12/22/2022 22:54 EDT Temperature 97.3 DegF Temperature Route Oral Pulse Rate 60 bpm Respiratory Rate 20 br/min Systolic Blood Pressure 106 mm Hg Diastolic Blood Pressure 68 mm Hg Blood pressure sites Arm, left Mean Arterial Pressure 81 mm Hg Pulse Pressure 38 mm Hg Oxygen Saturation 93 % L Mode of Delivery (Oxygen) Room air 12/22/2022 21:30 EDT Early Warning Score 2.00 12/22/2022 21:30 EDT Early Warning Score 2.00 12/22/2022 21:30 EDT Early Warning Score 2.00 12/22/2022 21:30 EDT Respiratory Rate 20 br/min Respiratory Rate 20 br/min 12/22/2022 21:29 EDT Early Warning Score 2.00 12/22/2022 21:27 EDT Pulse Rate 82 bpm Respiratory Rate 20 br/min Systolic Blood Pressure 121 mm Hg Diastolic Blood Pressure 72 mm Hg 12/22/2022 20:35 EDT Early Warning Score 2.00 12/22/2022 20:05 EDT Early Warning Score 2.00 12/22/2022 19:00 EDT Temperature 98.1 DegF Temperature Route Oral Pulse Rate 64 bpm Respiratory Rate 16 br/min Systolic Blood Pressure 121 mm Hg Diastolic Blood Pressure 72 mm Hg Blood pressure sites Arm, left Mean Arterial Pressure 88 mm Hg Pulse Pressure 49 mm Hg Oxygen Saturation 95 % Mode of Delivery (Oxygen) Room air . Narrative/Incidental Patient is A&Ox4, VSS, afebrile. Patient is calm and cooperative to care for. Patient reports 10/10 pain tthis shift, PRN medication given with improvement noted. Patient denies any feelings of chest pain, pressure, or palpations this shift. Patient on telemetry monitoring, Sb to NSR, +2 edema in bilateral lower extremities noted. Lung sounds clear to diminshed on RA, patient refused CPAP HS,no cough or SOB noted. Positive bowel sounds x4 quadrants, abdomen is soft, round, non-tender, cardiac diet w. 60CHO and 2gm Na restriction in place, last BM 12/22. Patient using the bathroom appropriately, independently ambulating in the room. Wound care completed this shift. See integumentary assessment for details. 22g in L FA, flushed well. Safety measures in place this shift. Patient is resting in bed, locked, in lowest position, and call odom within reach. Will continue to monitor. . * Kris TORRES, Jermain Myers: PERFORM Event Display: Progress Note Hospital Authored Date: [id number] Patient: ??PECHANGA, BENNY ? Age:??52 Years?Sex:??Male?:??1970?? Subjective Patient complains??of chronic??back pain??with radiation to the right calf. No fevers chills or sweats. Physical therapy notes were reviewed. ??The patient is able to ambulate with a walker??and transferin and out of wheelchair, but there??currently recommending rehabilitation.?? Review of Systems Noncontributory Objective Vital Signs?? Temperature: 97.7 DegF (12/22/22 12:04:00) Temperature Route: Oral (12/22/22 12:04:00) Pulse Rate: 60 bpm (12/22/22 12:04:00) Respiratory Rate: 20 br/min (12/22/22 17:01:00) Systolic Blood Pressure: 114 mm Hg (12/22/22 12:04:00) Diastolic Blood Pressure: 67 mm Hg (12/22/22 12:04:00) Blood pressure sites: Arm, right (12/22/22 12:04:00) Mean Arterial Pressure: 83 mm Hg (12/22/22 12:04:00) Pulse Pressure: 47 mm Hg (12/22/22 12:04:00) Oxygen Saturation: 96 % (12/22/22 12:04:00) Mode of Delivery (Oxygen): Room air (12/22/22 12:04:00) Early Warning Score: 2 (12/22/22 17:02:47) ? Intake/Output? 12/21 16:58 12/22 07:00 12/21 07:00 12/20 07:00 12/19 07:00 ?? 12/22 17:06 12/22 17:06 12/22 06:59 12/21 06:59 12/20 06:59 Intake ?236 ?0 ?236 ?0 ?0 Output ?400 ?400 ?0 ?0 ?0 Net Total ? -164 ? -400 ?236 ?0 ?0 ? Physical Exam Overnight telemetry shows sinus bradycardia in the 50s??with no significant pauses. ?? General: This is a somewhat disheveled, morbidly obese gentleman??resting comfortably in hospital bed. Head EENT:??Extraocular muscle movement intact. Moist mucous membranes. Neck: Supple.?? No JVD. Respiratory:??Clear to auscultation. No wheezing or crackles. No use of accessory muscles. Cardiovascular:??S1S2 regular. No murmurs, rubs or gallops. Gastrointestinal:??Abdomen soft, non-tender, non-distended. Normal bowel sounds. Genitourinary:??No CVA tenderness. Extremities: There is tenderness about the base of the??left fifth toe.?? There are multiple??wounds??on the toes of both feet.?? There is no increased warmth of either foot. ??Pedal pulses are??easily palpable in both feet.?? There is no redness or tenderness??apart from the??fifth left toe. Neurologic:??AAOx3, Speech normal. No focal neurological deficits. Skin:??No rash. Psychiatric:??Normal mood and affect. _ Inpatient Medications Medications (24) Active SCHEDULED: (13) Apixaban 5 mg Tablet (Eliquis) ??10 mg, By Mouth, 2 times a day Aspirin 81 mg EC Tablet (aspirin 81 mg oral delayed release tablet) ??81 mg, By Mouth, Daily Atorvastatin 80 mg Tablet (atorvastatin 80 mg oral tablet) ??80 mg, By Mouth, Daily Bacitracin Topical 0.9 GM Ointment (UD) (Bacitracin Topical Oint) ??1 application, Topically, 2 times a day Carvedilol 6.25 mg Tablet (carvedilol 3.125 mg oral tablet) ??6.25 mg, By Mouth, 2 times a day Duloxetine 30 mg Capsule (Duloxetine) ??30 mg, By Mouth, Daily at bedtime Insulin Lispro 100 units/mL Inj (3mL) (Insulin LISPRO Sliding Scale) ??2-10 units, Subcutaneous Injection, 3 times a day before meals Levothyroxine 100 mcg Tablet (levothyroxine 0.1 mg oral tablet) ??200 mcg, By Mouth, Daily Metformin 500 mg Tablet (metFORMIN 500 mg oral tablet) ??500 mg 1 each, By Mouth, Daily NaCl 0.9% Flush 3ml (NaCL 0.9% Flush) ??3 mL, IV Push, Every 8 hours Pantoprazole 20 mg EC Tablet (pantoprazole 20 mg oral delayed release tablet) ??20 mg, By Mouth, Daily Sacubitril-Valsartan 24 mg-26 mg Tablet (Entresto 24 mg-26 mg oral tablet) ??1 tablet, By Mouth, 2 times a day Torsemide 20 mg tablet (torsemide 20 mg oral tablet) ??20 mg 1 tablet, By Mouth, 2 times a day CONTINUOUS: (0) PRN: (11) Acetaminophen 325 mg Tablet (Acetaminophen Tablet) ??650 mg, By Mouth, Every 4 hours Dextromethorphan-Guaifenesin 20 mg-200 mg/10 mL Liqu UD (Robitussin DM Liquid) ??10 mL, By Mouth, Every 4 hours HYDROmorphone 2 mg Tablet (Dilaudid 2 mg oral tablet) ??2 mg, By Mouth, Every 4 hours HYDROmorphone 2 mg Tablet (Dilaudid 4 mg oral tablet) ??4 mg, By Mouth, Every 4 hours Melatonin 3 mg Tablet (Melatonin Tablet) ??3 mg, By Mouth, Daily at bedtime NaCl 0.9% Flush 3ml (NaCL 0.9% Flush) ??3 mL, IV Push, Every 8 hours Nitroglycerin 0.4 mg Sublingual Tablet (nitroglycerin 0.4 mg sublingual tablet) ??0.4 mg, Sublingual, Every 5 minutes Polyethylene Glycol 17 Gm Powder (MiraLax Powder) ??17 Gm 1 pack/packet, By Mouth, Daily Quetiapine 25 mg Tablet (SEROquel 25 mg oral tablet) ??25 mg, By Mouth, Once Senna 8.6 mg / Docusate 50 mg tablet (Docusate/Senna Tablet) ??1 tablet, By Mouth, 2 times a day Simethicone 80 mg Chewable Tablet (Simethicone Tablet) ??80 mg, Chew, 3 times a day ? Results Blood Glucose Trend Glucose, POC:??103 mg/dL??High (12/22/22 12:05:00) Glucose, POC:??164 mg/dL??High (12/22/22 08:08:00) Glucose, POC: 97 mg/dL (12/21/22 21:56:00) ? Test Name Test Result Date/Time WBC 8.7 k/mm3 12/22/2022 05:05 EDT Hgb 14.7 Gm/dL 12/22/2022 05:05 EDT Platelet Count 302 k/mm3 12/22/2022 05:05 EDT Sed Rate 72 mm/hr 12/22/2022 05:05 EDT Sodium 139 mmol/L 12/22/2022 05:05 EDT Potassium 3.9 mmol/L 12/22/2022 05:05 EDT Chloride 96 mmol/L 12/22/2022 05:05 EDT Bicarbonate Level 27 mmol/L 12/22/2022 05:05 EDT BUN 23 mg/dL 12/22/2022 05:05 EDT Creatinine-Blood 0.9 mg/dL 12/22/2022 05:05 EDT C-Reactive Protein 1.3 mg/dL 12/22/2022 05:05 EDT Imaging(s) ?Other Image ?Result type: CT Angio Chest Result date: December 16, 2022 4:36 EDT Result status: Auth (Verified) Result title: CT Angio Chest Performed by: Andres Dumont MD on December 16, 2022 6:39 EDT Verified by: Marietta Mahoney MD on December 16, 2022 6:44 EDT En[id number], [facility] [place] 12/16/2022 - 12/20/2022 ?? * Final Report * ?? Reason For Exam PE suspected, Intermediate prob, positive D-dimer;Other: ?? RESULT: CT Angio Chest EXAMINATION: CT Angio Chest ?? INDICATION: Shortness of breath; Reason: Other:; PE suspected, Intermediate prob, positive D-dimer;Clinical Question(s): Pulmonary Embolism. ?? TECHNIQUE: Spiral CTA of the chest was performed after rapid IV contrast administration without cardiac gating, triggered by an SP on the main pulmonary artery. Images are formatted in multiple planes using 2-D multiplanar and 3-D maximum intensity projection. 100 cc of Omnipaque 300 was administered intravenously. Weight-based protocol using automatic tube modulation was used to optimize exposure parameters. ?? CTDIvol Body: 10.65 mGy, DLP Body: 335 mGy*cm. ? COMPARISONS: 09/17/2022. ?? ANGIOGRAPHIC FINDINGS: ?? Acute bilateral segmental pulmonary emboli (images 183, 242, 266, series 302). The right embolus appears to arise from the previously seen thin peripheral filling defect in the right upper lobar pulmonary artery. No interventricular septal bowing or reflux of contrast into the IVC. No evidence of right heart strain. ?? No acute aortic abnormality seen on this study performed without cardiac gating. ?? NON-ANGIOGRAPHIC FINDINGS: ?? Nanny Babysitter View Findings, Lines and Tubes: None. ?? Trachea and Airways: Patent proximal tracheobronchial tree. ?? Lungs and Pleura: Mild bibasilar atelectasis and scarring, similar to prior. No effusion or pneumothorax. There is moderate motion artifact limiting evaluation for pulmonary nodules. Mild upper lung emphysema. Mediastinum and lore: No mass or hematoma. No mediastinal or hilar lymphadenopathy. No esophageal abnormality. ?? Heart: Marked cardiomegaly with left ventricular significant enlargement and also left ventricular hypertrophy. The latter can be seen if there are systemic history of hypertension. There is severe coronary artery atherosclerosis along the LAD. No pericardial effusion. ?? Chest Wall Soft Tissues: No acute abnormality of the visualized chest wall. ?? Diaphragm and upper abdomen: Limited images of the upper most abdomen demonstrate hepatic steatosis. ?? Bones: No acute abnormality. Osteopenic bones and moderate multilevel disc degenerative changes. ?? IMPRESSION: ?? Acute pulmonary emboli. Findings do not meet CT criteria for submassive PE. ? Assessment/Plan Diagnoses CKD (chronic kidney disease) ??(N18.9) Cellulitis ??(L03.90) Chronic pain syndrome ??(G89.4) Diabetic foot infection ??(E11.628) Fracture of fifth metatarsal bone of left foot ??(S92.352A) Homelessness ??(Z59.00) Open toe wound ??(S91.109A) Pulmonary embolism ??(I26.99) Type 2 diabetes mellitus ??(E11.9) ?? Assessment:??This unfortunate 52-year-old gentleman with a history of ischemic cardiomyopathy with an LV ejection fraction of 20%,??substance use disorder??currently on??scheduled opioids for pain,??history of coronary disease status post PCI in the past, morbid obesity, obstructive sleep apnea nonc ompliant with CPAP,??type 2 diabetes mellitus, and homelessness??presented initially??to the [facility] emergency department??because of pain??and wounds??in the toes of both feet.??He was felt by the emergency physician to have cellulitis of the feet??and was transferred??to [facility] from [facility] in [place]. ?? His initial evaluation was remarkable for the absence of fever, abnormal white blood count, but mild elevation of sedimentation rate and C-reactive protein.??Plain films of both feet show a nondisplaced fracture??of the left fifth toe, but no evidence of osteomyelitis.??Vascular supply to both feet appears to be intact.??He appears to be euvolemic??and not in overt heart failure. He has not had any anginal chest discomfort in the recent past. ?? Open toe wound (S91.109A):??. ?? Fracture of fifth metatarsal bone of left foot (S92.352A):? In addition to a nondisplaced fracture of the left fifth toe, the patient has multiple??wounds??on the distal pads of??multiple toes.?? None of these appear to be infected. Plan: Bacitracin and dry sterile dressings twice daily Anticipate likely discharge??12/23. ?? Pulmonary embolism (I26.99):? Patient reportedly has a history of pulmonary embolism in the past. Angiogram from 12/16 confirms the presence of pulmonary emboli Patient has been reportedly intermittently adherent with Eliquis. Plan: Continue Eliquis ?? Type 2 diabetes mellitus (E11.9):? Hemoglobin A1c??is 6.2??suggesting at least prediabetes Plan: Metformin 500 mg daily ?? Homelessness (Z59.00):? Discussed in detail with social work ?? Chronic pain syndrome (G89.4):? Continue oral Dilaudid ?? VTE Prophylaxis:? Eliquis ?VTE Prophylaxis Assessment:??VTE Prophylaxis Ordered ?? Code Status:? Full code ?Order Code Status:??Code Status Ordered ?? Discharge Planning:? Anticipate discharge 12/23 ?? I spent a total of 25 minutes today reviewing the chart/medical records, speaking with the patient,formulating and discussing the treatment plan, and documenting the findings in encounter. ?Order Date/Time ??Order Action ??Order Name ??Order Detail ??12/22/2022 17:02 ??Order ??Magnesium Level ??Tomorrow AM, 12/23/22 7:00:00 EDT ??12/22/2022 17:02 ??Order ??CBC ??Tomorrow AM, 12/23/22 7:00:00 EDT ??12/22/2022 17:02 ??Order ??Basic Metabolic Panel ??Tomorrow AM, 12/23/22 7:00:00 EDT ??12/22/2022 17:01 ??Order ??Bacitracin Topical 0.9 GM Ointment (UD) ??1 application, Topically, 2 times a day ??12/22/2022 17:00 ??Order ??[place] to [place] [facility] [place] ??Wash feet with soap and water twice daily, dry thoroughly, apply bacitracin to open areas, and dry sterile dressings., 12/22/22 17:00:00 EDT ??12/22/2022 16:51 ??Order ??Metformin 500 mg Tablet ??500 mg, 1 each, By Mouth, Daily ??12/22/2022 16:50 ??Modify ??Carvedilol 6.25 mg Tablet ??6.25 mg, tablet, By Mouth, 2 times a day ??12/22/2022 16:50 ??Order ??Torsemide 20 mg tablet ??20 mg, 1 tablet, By Mouth, 2 times a day ??12/22/2022 16:49 ??Order ??Nitroglycerin 0.4 mg Sublingual Tablet ??0.4 mg, tablet, Sublingual, Every 5 minutes, PRN: Chest Pain ??12/22/2022 16:48 ??Order ??Carvedilol 6.25 mg Tablet ??6.25 mg, tablet, By Mouth, 2 times a day ??12/22/2022 15:54 ??Modify ??HYDROmorphone 2 mg Tablet ??4 mg, By Mouth, Every 4 hours, PRN: Pain , Severe ??12/22/2022 15:50 ??Order ??HYDROmorphone 2 mg Tablet ??4 mg, By Mouth, Every 4 hours, PRN: Pain , Severe ??12/22/2022 15:50 ??Order ??HYDROmorphone 2 mg Tablet ??2 mg, By Mouth, Every 4 hours, PRN: Pain , Moderate ??12/22/2022 15:49 ??Discontinue ??OxyCODONE 5 mg IR Tablet ??5 mg, By Mouth, Every 3 hours, PRN: Pain , Moderate ??12/22/2022 15:49 ??Discontinue ??OxyCODONE 5 mg IR Tablet ??10 mg, By Mouth, Every 3 hours, PRN: Pain , Severe ??12/22/2022 12:09 ??Order ??Glucose POC ??Routine, 12/22/22 12:05:00 EDT ??12/22/2022 10:44 ??Order ??OxyCODONE 5 mg IR Tablet ??10 mg, By Mouth, Every 3 hours, PRN: Pain , Severe ??12/22/2022 10:44 ??Order ??OxyCODONE 5 mg IR Tablet ??5 mg, By Mouth, Every 3 hours, PRN: Pain , Moderate ??12/22/2022 10:44 ??Discontinue ??HYDROmorphone 2 mg/mL Inj Syringe ??2 mg, 1 mL, IV Push Slowly, Every 4 hours, PRN: Pain , Severe ??12/22/2022 10:43 ??Discontinue ??Piperacillin/Tazobactam 3.375 Gm Inj ??3.375 Gm, 25 mL/hr, IVPB, Every 8 hours ??12/22/2022 10:43 ??Discontinue ??Vancomycin 2 Gm / 500 mL D5W ??2,000 mg, 500 mL, 250 mL/hr, IVPB, Every 12 hours ??12/22/2022 10:23 ??Order ??Glucose POC ??Routine, 12/22/22 8:08:00 EDT ??12/22/2022 08:26 ??Order ??Consult Social Work ??Reason: Homelessness/Housing Issues, 12/22/22 8:26:00 EDT ? Note * Gisel Daniel RN: PERFORM Event Display: Discharge/Transfer Note Hospital Authored Date: [id number] Nursing Discharge Note Entered On: 12/23/2022 12:39 EDT Performed On: 12/23/2022 12:38 EDT by Gisel Daniel RN Nursing Discharge Note 2 Discharge Time : 12/23/2022 12:30 EDT Discharge Level of Care at Discharge : Home/Prison/Foster Care Patient Left Unit Via : Ambulance Patient Accompanied Off Unit with : Ambulance/Chair Van Personnel Handover Given to Transport Personnel : Yes DC Instructions Provided & Signed by Pt : Yes Patient Understands D/C Instructions : Yes Patient Instructions Discharge Signed : Yes Did Pt have Specialty Bed or Wound Vac : No Gisel Daniel RN - 12/23/2022 12:38 EDT * Kris TORRES, Jermain Myers: PERFORM Event Display: Discharge/Transfer Note Hospital Authored Date: [id number] Patient: ??BENNY SOL ? Age:??52 Years?Sex:??Male?:??1970?? Patient Information Discharge Location: [facility] Primary Care Physician: Preet Sofia MD Admit Date/Time: 12/21/22 16:58 Discharge Disposition Discharge Disposition: Home: No Services Discharge Diagnosis Open toe wound (S91.109A) Fracture of fifth metatarsal bone of left foot (S92.352A) Pulmonary embolism (I26.99) Type 2 diabetes mellitus (E11.9) Homelessness (Z59.00) Chronic pain syndrome (G89.4) CKD (chronic kidney disease) (N18.9) Cellulitis (L03.90) Diabetic foot infection (E11.628) Heart failure with reduced ejection fraction (I50.20) Coronary artery disease, hx STEMI, DE stent to LAD (I25.10) Obstructive sleep apnea (G47.33) Severe obesity (E66.01) Acid reflux Chronic kidney disease (CKD) stage G2/A2, mildly decreased glomerular filtration rate (GFR) [id number] mL/min/1.73 square meter and albuminuria creatinine ratio between 30-299 mg/g Cigarette smoker Coronary artery disease, hx STEMI, DE stent to LAD Hyperlipidemia Hypertension Hypothyroidism Marijuana smoker Morbid obesity Obstructive sleep apnea Post traumatic stress disorder (PTSD) Prediabetes ?? _ Discharge Medications apixaban (Eliquis 5 mg oral tablet)?1?tab(s)?5?Milligram?By Mouth?2 times a day Aspirin (aspirin 81 mg oral delayed release tablet)?1?tab(s)?81?Milligram?By Mouth?Daily Atorvastatin (atorvastatin 80 mg oral tablet)?1?tab(s)?80?Milligram?By Mouth?Daily Bacitracin Topical (bacitracin topical 500 u/gm ointment)?See Instructions?Wash feet with soap and water twice daily, dry thoroughly, then apply a thin layer of bacitracin ointment to open areas and cover with clean socks or clean sterile dressings. Budesonide-Formoterol (Symbicort 80mcg/4.5mcg Inhaler)?2?puff(s)?Inhalation?2 times a day?in [...] Dx: I50.22 Hydromorphone (Dilaudid 2 mg oral tablet)?2?Milligram?By Mouth?Every 4 hours?as needed?Pain , Moderate?for 5?Days Levothyroxine (levothyroxine 0.2 mg oral tablet)?1?tab(s)?200?Microgram?By Mouth?Daily?for [...] tablet)?1?tab(s)?20?Milligram?By Mouth?2 times a day?for 30?Days ? Vaccinations and Immunoprophylaxis Hepatitis A Adult Vaccine: 0 Unknown (04/20/11 12:00:00) Hepatitis A Adult Vaccine: 0 Unknown (02/27/10 12:00:00) hepatitis B adult vaccine: 0 Unknown (01/22/13 12:00:00) hepatitis B adult vaccine: 0 Unknown (08/12/10 12:00:00) hepatitis B adult vaccine: 0 Unknown (03/09/10 12:00:00) influenza virus vaccine, inactivated: 0 Unknown (02/08/14 12:00:00) SARS-CoV-2 (COVID-19) mRNA-1273 vaccine: 100 mcg (05/11/21 12:50:00) ?? Allergies Allergies ?(Active and Proposed Allergies Only) NKA? (Severity: Unknown severity, Onset: Unknown) ? Objective Assessment and Plan Assessment:??This unfortunate 52-year-old gentleman with a history of ischemic cardiomyopathy with an LV ejection fraction of 20%,??substance use disorder??currently on??scheduled opioids for pain,??history of coronary disease status post PCI in the past, morbid obesity, obstructive sleep apnea nonc ompliant with CPAP,??type 2 diabetes mellitus, and homelessness??presented initially??to the [facility] emergency department??because of pain??and wounds??in the toes of both feet.??He was felt by the emergency physician to have cellulitis of the feet??and was transferred??to [facility] from [facility] in [place]. ?? His initial evaluation was remarkable for the absence of fever??and??a normal white blood count, but mild elevation of sedimentation rate and C-reactive protein.??Plain films of both feet show a nondisplaced fracture??of the left fifth toe, but no evidence of osteomyelitis.??Vascular supply to bothfeet appears to be intact.??He appears to be euvolemic??and not in overt heart failure. He has not had any anginal chest discomfort in the recent past. ?? Open toe wound (S91.109A):??. Fracture of fifth metatarsal bone of left foot (S92.352A):? In addition to a nondisplaced fracture of the left fifth toe, the patient has multiple??wounds??on the distal pads of??multiple toes.?? None of these appear to be infected. Plan: Bacitracin and dry sterile dressings twice daily Patient has temporary long term, will discharge patient 12/23 ?? Pulmonary embolism (I26.99):? Benny??reportedly has a history of pulmonary embolism in the past. CT??angiogram from 12/16 confirms the presence of??small??pulmonary emboli Patient has been reportedly intermittently adherent with Eliquis. Plan: Continue Eliquis ?? Type 2 diabetes mellitus (E11.9):? Hemoglobin A1c??is 6.2??suggesting at least prediabetes Plan: Metformin??ER??500 mg daily ?? Homelessness (Z59.00):? Discussed in detail with social work Patient has a temporary long term with a friend??arranged. ?? Chronic pain syndrome (G89.4):? Continue oral Dilaudid [facility] was queried. Patient last had a fill??on 12/06??for 42 2mg tablets We will prescribe??a 5-day supply??at 2 mg??4 times daily??to last until he can be seen again in the [facility]. ?? Heart failure with reduced ejection fraction (I50.20):??. ?ACEI or ARB for LVSD:??ARB has been ordered Coronary artery disease, hx STEMI, DE stent to LAD (I25.10):? Noted, no anginal symptoms, no signs of volume overload. ?? Obstructive sleep apnea (G47.33):??. Severe obesity (E66.01):? Patient has been nonadherent with CPAP. ? Measurements?? Height: 180 cm (12/23/22) Weight: 153.5 kg (12/21/22) Dry Weight: 153.5 kg (12/21/22) Body Mass Index:??47.38 kg/m2??Critical (12/21/22) ? Vital Signs?? Temperature: 97.8 DegF (12/23/22 07:40:00) Temperature Route: Oral (12/23/22 07:40:00) Pulse Rate: 78 bpm (12/23/22 08:38:00) Respiratory Rate: 16 br/min (12/23/22 07:40:00) Systolic Blood Pressure:??156 mm Hg??High (12/23/22 08:38:00) Diastolic Blood Pressure: 74 mm Hg (12/23/22 08:38:00) Blood pressure sites: Arm, left (12/23/22 07:40:00) Mean Arterial Pressure: 101 mm Hg (12/23/22 07:40:00) Pulse Pressure: 82 mm Hg (12/23/22 07:40:00) Oxygen Saturation: 94 % (12/23/22 07:40:00) Mode of Delivery (Oxygen): Room air (12/23/22 07:40:00) Early Warning Score: 4 (12/23/22 09:31:36) ? Intake/Output? 12/21 16:58 12/23 07:00 12/22 07:00 12/21 07:00 12/20 07:00 ?? 12/23 10:17 12/23 10:17 12/23 06:59 12/22 06:59 12/21 06:59 Intake ?552 ? 80 ?236 ?236 ?0 Output ? 2600 ? 1000 ? 1600 ?0 ?0 Net Total ?-2048 ? -920 ?-1364 ?236 ?0 ? . Physical Exam Overnight telemetry showed normal sinus rhythm.? General: This is a pleasant and cooperative, morbidly obese gentleman??in no acute distress. Head EENT:??Extraocular muscle movement intact. Moist mucous membranes. Neck: Supple.?? No JVD. Respiratory:??Clear to auscultation. No wheezing or crackles. No use of accessory muscles. Cardiovascular:??S1S2 regular. No murmurs, rubs or gallops. Gastrointestinal:??Abdomen soft, non-tender, non-distended. Normal bowel sounds. Genitourinary:??No CVA tenderness. Extremities: There is localized tenderness about the base of the left fifth??toe.?? There are multiple shallow ulcerations??of the distal pads??of the toes of both feet.?? There is no increased??warmth, redness, or tenderness??of any of these toes.?? Pedal pulses are 1+ in both feet and the feet are warm and well-perfused.?? Sensation in the toes appears to be intact. Neurologic:??AAOx3, Speech normal. No focal neurological deficits. Skin:??No rash. Psychiatric:??Normal mood and affect. Pending Results No Pending Results Follow-Up Appointments Added Follow Up ?Time Frame ?Comments [place] TORRES, Preet Hall?Within one week Patient Instructions You were found to have prediabetes .?? Your hemoglobin A1c, a measure of your average blood sugar was 6.2??with the upper limit of normal being??5.9. You are started on a small dose of a medicine called metformin??to help control your blood sugar.??Please do your best to avoid sweets and all meals containing a large amount of starch. In addition you have a history of significant heart failure, and are vulnerable??to excess salt. ??Please be careful to restrict the salt in your diet. There are wounds on the toes of both feet that do not appear to be infected at this point.?? Nothing more is needed to manage these other than keeping your feet clean and dry. You have a nondisplaced fracture of the left??small toe??that does not need any specific treatment at this point. 24 2mg Dilaudid tablets have been sent electronically to the [facility] on [facility] in [place].?? You will need to see your primary care provider for additional medication??going forward. It is extremely important that you not stop taking Eliquis unless??instructed to do so by a care provider, as this will prevent you from having additional blood clots in the lung. Post Discharge Care Activity: Unrestricted Wound Care: Wash feet with soap and water twice daily, dry thoroughly, then apply a thin layer of bacitracin to open areas and cover with clean socks. Code Status: ?? Full Resuscitation Condition: Stable Prognosis: Fair Discharge ?12/23/22 10:17:00 EDT Discharge Prescriptions ?ePrescribed, ??12/23/22 10:17:00 EDT Home Health Face to Face ^HomeHealthFTF Results Discharge Labs BLOOD COUNT & DIFF WBC 8.7 k/mm3 ()?? 12/22/2022 05:05 RBC 4.93 m/mm3 ()?? 12/22/2022 05:05 Hgb 14.7 Gm/dL ()?? 12/22/2022 05:05 Hct 46.8 % ()?? 12/22/2022 05:05 MCV 94.9 femtoliters (High)?? 12/22/2022 05:05 MCH 29.8 pg ()?? 12/22/2022 05:05 MCHC 31.4 g/dL (Low)?? 12/22/2022 05:05 Platelet Count 302 k/mm3 ()?? 12/22/2022 05:05 RDW-SD 55.8 femtoliters (High)?? 12/22/2022 05:05 MPV 10.0 femtoliters ()?? 12/22/2022 05:05 Nucleated RBC (Automated) 0.0 #/100 WBC'S ()?? 12/22/2022 05:05 Abs. NRBC 0.0 k/mm3 ()?? 12/22/2022 05:05 ?? CHEM GENERAL Sodium 139 mmol/L ()?? 12/22/2022 05:05 Potassium 3.9 mmol/L ()?? 12/22/2022 05:05 Chloride 96 mmol/L (Low)?? 12/22/2022 05:05 Bicarbonate Level 27 mmol/L ()?? 12/22/2022 05:05 Anion Gap 16 ()?? 12/22/2022 05:05 Glucose, POC 122 mg/dL (High)?? 12/23/2022 07:42 BUN 23 mg/dL (High)?? 12/22/2022 05:05 Creatinine-Blood 0.9 mg/dL ()?? 12/22/2022 05:05 Estimated GFR Creatinine 99 ML/MIN/1.73 M2 ()?? 12/22/2022 05:05 C-Reactive Protein 1.3 mg/dL (High)?? 12/22/2022 05:05 ?? HEME OTHER Sed Rate 72 mm/hr (High)?? 12/22/2022 05:05 ? URINE OTHER Est Creatinine Clearance 104.16 mL/min ()?? 12/22/2022 07:29 ? VIROLOGY COVID-19 PCR Specimen Source NASAL ()?? 12/21/2022 19:25 COVID-19 PCR Result NEGATIVE ()?? 12/21/2022 19:25 ? Microbiology ?? COVID-19 (2019 Novel Coronavirus) PCR?? Completed?? Source: Nasal Body Site: Nose Collected Dt/Tm: 12/21/2022 19:25 Last Updated Dt/Tm: 12/21/2022 20:45 ? Imaging(s) ?Other Image ?Result type: CT Angio Chest Result date: December 16, 2022 4:36 EDT Result status: Auth (Verified) Result title: CT Angio Chest Performed by: Andres Dumont MD on December 16, 2022 6:39 EDT Verified by: Marietta Mahoney MD on December 16, 2022 6:44 EDT Encounter info: [id number], [facility], Disch IP, 12/16/2022 - 12/20/2022 ?? * Final Report * ?? Reason For Exam PE suspected, Intermediate prob, positive D-dimer;Other: ?? RESULT: CT Angio Chest EXAMINATION: CT Angio Chest ?? INDICATION: Shortness of breath; Reason: Other:; PE suspected, Intermediate prob, positive D-dimer;Clinical Question(s): Pulmonary Embolism. ?? TECHNIQUE: Spiral CTA of the chest was performed after rapid IV contrast administration without cardiac gating, triggered by an SP on the main pulmonary artery. Images are formatted in multiple planes using 2-D multiplanar and 3-D maximum intensity projection. 100 cc of Omnipaque 300 was administered intravenously. Weight-based protocol using automatic tube modulation was used to optimize exposure parameters. ?? CTDIvol Body: 10.65 mGy, DLP Body: 335 mGy*cm. ? COMPARISONS: 09/17/2022. ?? ANGIOGRAPHIC FINDINGS: ?? Acute bilateral segmental pulmonary emboli (images 183, 242, 266, series 302). The right embolus appears to arise from the previously seen thin peripheral filling defect in the right upper lobar pulmonary artery. No interventricular septal bowing or reflux of contrast into the IVC. No evidence of right heart strain. ?? No acute aortic abnormality seen on this study performed without cardiac gating. ?? NON-ANGIOGRAPHIC FINDINGS: ?? Nanny Babysitter View Findings, Lines and Tubes: None. ?? Trachea and Airways: Patent proximal tracheobronchial tree. ?? Lungs and Pleura: Mild bibasilar atelectasis and scarring, similar to prior. No effusion or pneumothorax. There is moderate motion artifact limiting evaluation for pulmonary nodules. Mild upper lung emphysema. Mediastinum and lore: No mass or hematoma. No mediastinal or hilar lymphadenopathy. No esophageal abnormality. ?? Heart: Marked cardiomegaly with left ventricular significant enlargement and also left ventricular hypertrophy. The latter can be seen if there are systemic history of hypertension. There is severe coronary artery atherosclerosis along the LAD. No pericardial effusion. ?? Chest Wall Soft Tissues: No acute abnormality of the visualized chest wall. ?? Diaphragm and upper abdomen: Limited images of the upper most abdomen demonstrate hepatic steatosis. ?? Bones: No acute abnormality. Osteopenic bones and moderate multilevel disc degenerative changes. ?? IMPRESSION: ?? Acute pulmonary emboli. Findings do not meet CT criteria for submassive PE. ? 35??minutes spent on discharge * Liana Gruber: VERIFY, PERFORM, SIGN Event Display: Case Management Discharge Plan Authored Date: [id number] Patient: BENNY SOL Age: 52 years Sex: Male : 1970 Associated Diagnoses: None Author: Liana Gruber Discharge Plan Case Management Discharge Plan : Case Management Discharge Plan Data 12/23/2022 10:55 EDT Discharge Level of Care at Discharge

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
--- OUTSIDE RECORDS SUMMARY | 2023-01-20 23:59 | XMS_ITS | Continuity of Care Document ---
Author Name Unknown Organization [facility] ter Address [address] [place] [address]- Care Team Providers Care Manager Plan Name Role Phone Preet Sofia MD Primary Care Physician [phone] [place] [facility] [place] 08/12/[address] [address]- Encounter Diagnosis Chest pain in adult(Final) - 08/12/21 Discharge Disposition: A-D/C AMA Attending Physician: Radha Kelley MD Admitting Physician: Eloina Morrison MD Referring Physician: Not on Staff, Referring MD Allergies, Adverse Reactions, Alerts No Known Allergies Immunizations Given and Recorded Vaccine Date Status Refusal Reason SARS-CoV-2 (COVID-19) mRNA-6956 vaccine 05/11/21 G iven influenza virus vaccine, [...] 11 Refills, Maintenance, 07/02/21 18:28:00 EST, Capsule, [facility], 180, cm, [...] Moderate,Instr:remove patc... Start Date: 07/02/21 Status: Ordered MorPHINE Inj 4 mg, Injection, IV Push Slowly, Every 5 minutes for 3 doses/times, PRN for Pain , Moderate, and SBP greater than 100, Routine, 08/12/21 5:00:00 EDT, Stop date Limited # of times Start Date: 08/12/21 Stop Date: 08/12/21 Status: Discontinued nitroglycerin 0.4 mg sublingual tablet 1 tablet = 0.4 mg, Sublingual, Every 5 minutes, PRN Chest Pain, # 100 tablet, 0 Refills, Maintenance, 06/09/21 12:34:00 EST, Tablet, [facility], Partial fill upon patient [...] 0 Refills, Maintenance, 06/09/21 12:34:00 EST, Cream, [facility], Partial fill upon patient [...] 11:03:00 EDT, Aerosol, Route to Pharmacy Electronically, [id number]... Start Date: 07/29/21 Status: Ordered torsemide 20 [...] consistent with a cyst on CT at [facility] 04/2019(Confirmed) 04/2019 Active Coronary artery [...] Morbid obesity(Confirmed) Active Obstructive sleep apnea(Confirmed) Active .Coil Inspector: Zoltan Diaz [phone], [facility]. BHCPP(Confirmed) Active Post traumatic stress disord er (PTSD)(Confirmed) 1999 Active Severe obesity(Confirmed) Active 1-Seen in CT scan of the abdomen done at [facility] on 08-08-16 Results Orders for Microbiology Reports Name Date Sterile Body Fluid Culture W/ Gram Smear (STERILE FLUID CULT.) 08/12/21 Microbiology Reports TEST:Sterile Fluid Culture STATUS:Unauthenticated BODY SITE: SOURCE:JOINT COLLECTED DATE/TIME:08/12/21 4:30 AM Sterile Fluid Culture SPECIMEN DESCRIPTION : JOINT FLUID L KNEE SPECIAL REQUESTS : NONE GRAM STAIN : 2+ RBC'S 1+ POLYMORPHONUCLEAR LEUKOCYTES NO ORGANISMS SEEN REPORT STATUS : PRELIMINARY REPORT Radiology Reports * Exam Date Time Procedure Performing Provider Status 08/12/21 2:27 AM Chest Portable Temitope No; Auth (Verified) Notes: (Chest Portable) Reason For Exam: Shortness of Breath RESULT: Chest Portable Chest Portable Reason: Shortness of Breath; Clinical Question(s): CHF COMPARISON: Chest radiograph 08/06/2021 FINDINGS: Limited examination due to patient's body habitus. LINES AND TUBES: None. LUNGS AND PLEURA: Obscuration of the left lower lung field/retrocardiac region keeping with atelectasis and/or effusion. No significant right pleural effusion. No significant pulmonary vascular congestion. No pneumothorax. HEART, MEDIASTINUM AND CAROLA: Moderate prominence of the cardiac silhouette, unchanged. Normal upper mediastinal and hilar contour. BONES AND SOFT TISSUES: No acute abnormality. IMPRESSION: Redemonstrated obscuration of the left lower lobe likely secondary to atelectasis and/or effusion, however infectious etiology cannot be excluded. I have personally reviewed the images and I agree with this report. WSN: [id number] Ordering Physician: Priya Anthony Dictated By: Antonio Doe DO Dictated Date/Time: 08/12/21 8:24 am Reviewed By: José Fritz MD, V Signed By: José Fritz MD, V Signed Date/Time: 08/12/21 8:29 am Transcribed By: SHANNA Transcribed Date/Time: 08/12/21 8:07 am Vital Signs Most recent to oldest [Reference Range]: 1 2 3 Height 180 cm (08/12/21 8:38 AM) Oxygen Saturation [94-100 %] 95 % (08/12/21 8:01 AM) 98 % (08/12/21 6:35 AM) 96 % (08/12/21 4:46 AM) Pulse Rate [55-90 bpm] 56 bpm (08/12/21 8:01 AM) 74 bpm (08/12/21 6:35 AM) 75 bpm (08/12/21 4:46 AM) Blood Pressure [90-138/55-84 mm Hg] 145/89mm Hg *H* (08/12/21 8:01 AM) 148/99mm Hg *H* (08/12/21 6:35 AM) 116/82mm Hg (08/12/21 4:46 AM) Respiratory Rate [16-30 br/min] 18 br/min (08/12/21 8:01 AM) 16 br/min (08/12/21 6:35 AM) 19 br/min (08/12/21 4:53 AM) Temperature [96.8-100.4 DegF] 97.2 DegF (08/12/21 8:01 AM) Liters per Minute 2 L/min (08/12/21 8:01 AM) 2 L/min (08/12/21 6:35 AM) Mode of Delivery (Oxygen) Nasal cannula (08/12/21 8:01 AM) Nasal cannula (08/12/21 6:35 AM) Room air (08/12/21 4:46 AM) Blood pressure sites Arm, right (08/12/21 8:01 AM) Temperature Route Oral (08/12/21 8:01 AM) Dry Weight 175 kg (08/12/21 8:38 AM) Social History Social History Type Response Smoking Status 10 or more cigarette s (1/2 pack or more)/day in last 30 days; Interested in cessation: No; Patient wants NRT during admission No entered on: 06/03/21 Sex
--- OUTSIDE RECORDS SUMMARY | 2023-01-20 23:59 | XMS_ITS | Continuity of Care Document ---
Author Name Unknown Organization [facility] Address Unknown Care Team Providers Care Envelope Machine Operator Name Role Phone Preet Sofia MD Primary Care Physician [place] [facility] [place] 10[place]09/21 [facility] Attending Physician: Preet Sofia MD Admitting Physician: Preet Sofia MD Allergies, Adverse Reactions, Alerts No Known Allergies Immunizations Given and Recorded Vaccine Date Status Refusal Reason SARS-CoV-2 (COVID-19) mRNA-2496 vaccine 05/11/21 G iven influenza virus vaccine, [...] Patient Refuses 1[facility] 3Location History: [facility] 4Location [...] 06/03/21 15:52:00 EST, Dry Weight Start Date: 5/10/22 Status: Ordered Secura Antifungal Extra Thick 2% topical cream 1 application, Topically, 2 times a day, to cracks in soles of feet, # 92 Gm, 0 Refills, Maintenance, 06/09/21 12:34:00 EST, Cream, [facility], Partial [...] 11:03:00 EDT, Aerosol, Route to Pharmacy Electronically, [id number]... Start Date: 07/29/21 Status: Ordered torsemide 20 [...] consistent with a cyst on CT at [facility] 04/2019(Confirmed) 04/2019 Active Coronary artery [...] class I(Confirmed) Active Obstructive sleep apnea(Confirmed) Active .Patient Services Coordinator: Zoltan Diaz [phone], [facility]. CPP(Confirmed) Active Post traumatic stress disord er (PTSD)(Confirmed) 1999 Active 1-Seen in CT scan of the abdomen done at [facility] on 08-08-16 Social History Social History Type Response Smoking Status 10 or more cigarette s (1/2 pack or more)/day in last 30 days; Interested in cessation: No; Patient wants NRT during admission No entered on: 06/03/21 Sex
--- OUTSIDE RECORDS SUMMARY | 2023-01-20 23:59 | XMS_ITS | Continuity of Care Document ---
Author Name Unknown Organization [facility] ter Address [address] [place] [address]- Care Team Providers Care Business Management Intern Name Role Phone Preet Sofia MD Primary Care Physician Encounter [facility] Date(s): 08/31/21 - 09/01/[address] [address]- Encounter Diagnosis Chest pain(Final) - 09/01/21 Discharge Disposition: A-D/C AMA Attending Physician: Vannessa Noland MD Admitting Physician: Vannessa Noland MD Referring Physician: Not on Staff, Referring [...] 0 Refills, Maintenance, 06/09/21 12:34:00 EST, Tablet, [facility], Partial fill upon patient [...] 0 Refills, Maintenance, 06/09/21 12:34:00 EST, Cream, [facility], Partial fill upon patient [...] 11:03:00 EDT, Aerosol, Route to Pharmacy Electronically, [id number]... Start Date: 07/29/21 Status: Ordered torsemide 20 [...] consistent with a cyst on CT at [facility] 04/2019(Confirmed) 04/2019 Active Coronary artery [...] class I(Confirmed) Active Obstructive sleep apnea(Confirmed) Active .Lightning Protection Installer: Zoltan Diaz [phone], [facility]. CPP(Confirmed) Active Post traumatic stress disord er (PTSD)(Confirmed) 1999 Active 1-Seen in CT scan of the abdomen done at [facility] on 08-08-16 Results Radiology Reports * Exam Date Time Procedure Performing Provider Status 08/31/21 3:06 PM Chest 2 Views Frontal and Lat Jade Celestin (Verified) Notes: (Chest 2 Views Frontal and Lat) Reason For Exam: Chest Pain;Other: RESULT: Chest 2 Views Frontal and Lat Chest 2 Views Frontal and Lat CLINICAL INDICATION: CHF. COMPARISON: Chest x-ray, 08/25/2021. FINDINGS: There is significant enlargement of the cardiac silhouette, which is in part related to prominent epicardial fat comparison is made to prior chest CT. Hilar and mediastinal contours are normal. The lungs are clear. There is no pleural effusion, pneumothorax, or evidence of CHF. No acute osseous abnormality is noted. IMPRESSION: Stable severe cardiomegaly. No CHF. WSN: [id number] Ordering Physician: Panfilo Multani Dictated By: Grecia Ortez MD Dictated Date/Time: 08/31/21 3:35 pm Reviewed By: Grecia Ortez MD Signed By: Grecia Ortez MD Signed Date/Time: 08/31/21 3:35 pm Transcribed By: SHANNA Transcribed Date/Time: 08/31/21 3:22 pm * Exam Date Time Procedure Performing Provider Status 08/31/21 3:06 PM Knee 1 or 2 Views Left Leobardo Celestinmadhav concepcion; Auth (Verified) Notes: (Knee 1 or 2 Views Left) Reason For Exam: Effusion RESULT: Knee 1 or 2 Views Left Knee 1 or 2 Views Left INDICATION: Joint effusion. TECHNIQUE: AP and lateral views. No prior exam.. COMPARISON: None. FINDINGS: There is no fracture or focal bony lesion. The joint spaces are normal including no degenerative change. There is no chondrocalcinosis. There is no joint effusion. On the lateral view there is soft tissue swelling anteriorly beginning just below the patella and extending inferiorly several centimeters. This is superficial soft tissue swelling and is not in the knee joint. The underlying bone is normal. No opaque foreign body or calcification. IMPRESSION: 1. No bony injury. 2. No joint abnormality, including no joint effusion. 3. Superficial soft tissue swelling anteriorly at the level of the knee joint and over the proximaltibia. Etiology not determined.. WSN: [id number] Ordering Physician: Panfilo Multani Dictated By: Eugene Polk MD Dictated Date/Time: 08/31/21 3:14 pm Reviewed By: Eugene Polk MD Signed By: Eugene Polk MD Signed Date/Time: 08/31/21 3:14 pm Transcribed By: SHANNA Transcribed Date/Time: 08/31/21 3:11 pm Vital Signs Most recent to oldest [Reference Range]: 1 2 3 Oxygen Saturation [94-100 %] 95 % (08/31/21 11:31 PM) 95 % (08/31/21 8:18 PM) 96 % (08/31/21 6:35 PM) Pulse Rate [55-90 bpm] 71 bpm (08/31/21 11:31 PM) 81 bpm (08/31/21 8:18 PM) 78 bpm (08/31/21 6:35 PM) Blood Pressure [90-138/55-84 mm Hg] 157/89mm Hg *H* (08/31/21 11:31 PM) 138/71mm Hg (08/31/21 8:18 PM) 170/84mm Hg *H* (08/31/21 6:35 PM) Respiratory Rate [16-30 br/min] 18 br/min (08/31/21 11:31 PM) 21 br/min (08/31/21 8:18 PM) 18 br/min (08/31/21 6:35 PM) Temperature [96.8-100.4 DegF] 97.8 DegF (08/31/21 11:31 PM) 97.5 DegF (08/31/21 6:35 PM) 97 DegF (08/31/21 3:41 PM) Liters per Minute 4 L/min (08/31/21 8:18 PM) 2 L/min (08/31/21 6:35 PM) 2 L/min (08/31/21 5:33 PM) Mode of Delivery (Oxygen) Room air (08/31/21 11:31 PM) Nasal cannula (08/31/21 8:18 PM) Room air (08/31/21 6:35 PM) Blood pressure sites Arm, left (08/31/21 6:35 PM) Arm, right (08/31/21 3:41 PM) Arm, left (08/31/21 2:10 PM) Temperature Route Oral (08/31/21 11:31 PM) Oral (08/31/21 6:35 PM) Temporal (08/31/21 3:41 PM) Social History Social History Type Response Smoking Status 10 or more cigarette s (1/2 pack or more)/day in last 30 days; Interested in cessation: No; Patient wants NRT during admission No entered on: 06/03/21 Sex
--- OUTSIDE RECORDS SUMMARY | 2023-01-20 23:59 | XMS_ITS | Continuity of Care Document ---
Author Name Unknown Organization [facility] Address [address] [place] [address]- Care Team Providers Care Barrel Cleaner Name Role Phone Preet Sofia MD Primary Care Physician [place] [facility] [place] 06/18/20 - 09/11/20 [facility]/[address] [address]- Attending Physician: Preet Sofia MD Admitting Physician: [...] History: [facility] 2Location History: [facility] 3[facility] 4Location History: [facility] Medications aspirin 81 mg oral delayed release tablet 81 mg, By Mouth, Daily, # 90 tablet, Refills 4, Tot. Refills 4, Maintenance, 09/03/20 20:10:00 EDT,Route to Pharmacy Electronically, [facility], 180, cm, 09/03/20 9:24:00 EDT, Height, 172.7, kg, 08/28/20 4:44:00 EDT, Dry Weight Start Date: 09/03/20 Status: Ordered atorvastatin 40 mg oral tablet 1 tablet = 40 mg, By Mouth, Daily at bedtime, # 90 tablet, 4 Refills, Maintenance, 09/03/20 20:11:00 EDT, Tablet, [facility], 180, cm, 09/03/20 9:24:00 EDT, Height, 172.7, kg, 08/28/20 4:44:00 EDT, Dry Weight Start Date: 09/03/20 Status: Ordered clopidogrel 75 mg oral tablet 75 mg, 1, tablet, By Mouth, Daily, # 90 tablet, Refills 3, Tot. Refills 3, Hard Stop 01/17/22 16:10:00 EDT, 01/22/21 16:10:00 EDT, [id number], 180, cm, 04/08/20 13:32:00 EST, Height, 181.... Start Date: 01/22/21 Stop Date: 01/17/22 Status: Ordered FLUoxetine 20 mg oral capsule 20 mg, 1, capsule, By Mouth, Daily, # 90 capsule, Refills 4, Tot. Refills 4, Maintenance, 09/03/20 20:09:00 EDT, Route to Pharmacy Electronically, [facility], home delivery, 180, cm, 09/03/20 9:24:00 EDT, Height, 172.7, kg, ... Start Date: 09/03/20 Status: Ordered furosemide 20 mg oral tablet 20 mg, 1, tablet, By Mouth, Daily in AM, # 90 tablet, Refills 3, Tot. Refills 3, Maintenance, 09/03/20 20:12:00 EDT, Route to Pharmacy Electronically, [facility], home delivery please, 180, cm, 09/03/20 9:24:00 EDT, Height, 172.7,... Start Date: 09/03/20 Status: Ordered levothyroxine 0.05 mg oral tablet 1 tablet = 50 mcg, By Mouth, Daily, # 90 tablet, 4 Refills, Maintenance, 06/26/20 17:25:00 EST, Tablet, [facility], home delivery, 180, cm, 06/26/20 14:13:00 EST, Height, 181.6, kg, 03/27/20 14:58:00 EST, Dry Weight Start Date: 06/26/20 Status: Ordered metoprolol 25 mg oral tablet, extended release 25 mg, 1, tablet, By Mouth, Daily, # 90 tablet, Refills 4, Tot. Refills 4, Maintenance, 06/26/20 17:25:00 EST, Route to Pharmacy Electronically, [facility], home delivery, 180, cm, 06/26/20 14:13:00 EST, Height, 181.6, kg, 03/27/20... Start Date: 06/26/20 Status: Ordered nortriptyline 10 mg oral capsule 10 mg, 1, capsule, By Mouth, Daily, # 90 capsule, Refills 3, Tot. Refills 3, Maintenance, 09/03/20 20:09:00 EDT, Route to Pharmacy Electronically, [facility], 180, cm, 09/03/20 9:24:00 EDT, Height, 172.7, [...] 06/26/20 17:25:00 EST, Route to Pharmacy Electronically, [facility], [facility], 180, cm, 06/26/20 14:13:00 EST, Height, [...] consistent with a cyst on CT at [facility] 04/2019(Confirmed) 04/2019 Active Coronary artery [...] Morbid obesity(Confirmed) Active Obstructive sleep apnea(Confirmed) Active .Membership Sales Manager: Zoltan Diaz [phone], [facility]. CPP(Confirmed) Active Post traumatic stress disord er (PTSD)(Confirmed) 1999 Active 1-Seen in CT scan of the abdomen done at [facility] on 08-08-16 Social History Social History Type Response Smoking Status 10 or more cigarette s (1/2 pack or more)/day in last 30 days; Other: [id number]; entered on: 09/03/20 Sex
--- OUTSIDE RECORDS SUMMARY | 2023-01-20 23:59 | XMS_ITS | Continuity of Care Document ---
Author Name Unknown Organization [facility] Address Unknown Care Team Providers Care Java Software Architect Name Role Phone Preet Sofia MD Primary Care Physician [place] [facility] [place] 03[place]15/21 [facility] Allergies, Adverse Reactions, Alerts Substance Reaction [...] 03/28/20 Not Given Patient Refuses 1Location History: [facility] 2Location History: [facility] 3Location History: [facility] 4Location History: [facility] Medications aspirin 81 mg oral [...] consistent with a cyst on CT at [facility] 04/2019(Confirmed) 04/2019 Active Coronary artery [...] Morbid obesity(Confirmed) Active Obstructive sleep apnea(Confirmed) Active .Shipwright Apprentice: Zoltan Diaz [phone], [facility]. CPP(Confirmed) Active Post traumatic stress disord er (PTSD)(Confirmed) 1999 Active 1-Seen in CT scan of the abdomen done at [facility] on 08-08-16 Social History Social History Type Response Smoking Status 10 or more cigarette s (1/2 pack or more)/day in last 30 days; Other: [id number]; entered on: 09/03/20 Sex
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
--- OUTSIDE RECORDS SUMMARY | 2023-01-20 23:59 | XMS_ITS | Continuity of Care Document ---
Author Name Unknown Organization [facility] Address Unknown Care Team Providers Care Biometrics Consultant Name Role Phone Preet Sofia MD Primary Care Physician Encounter [facility] [place] Date(s): 08/14/21 - 09/24/21 [facility] Attending Physician: Preet Sofia MD Admitting Physician: Preet Sofia MD Allergies, Adverse Reactions, Alerts No Known Allergies Immunizations Given and Recorded Vaccine Date Status Refusal Reason SARS-CoV-2 (COVID-19) [id number] vaccine 05/11/21 G iven influenza virus vaccine, [...] Given Patient Refuses 1Location History: [facility] 2Location History: [facility] 3Location History: [facility] [...] 0 Refills, Maintenance, 06/09/21 12:34:00 EST, Tablet, [facility], Partial fill upon patient request [...] 0 Refills, Maintenance, 06/09/21 12:34:00 EST, Cream, [facility], Partial fill upon patient request [...] 11:03:00 EDT, Aerosol, Route to Pharmacy Electronically, [id number]... Start Date: 07/29/21 Status: Ordered torsemide 20 [...] consistent with a cyst on CT at [facility] 04/2019(Confirmed) 04/2019 Active Coronary artery [...] class I(Confirmed) Active Obstructive sleep apnea(Confirmed) Active .Workforce Analyst: Zoltan Diaz [phone], [facility]. CPP(Confirmed) Active Post traumatic stress disord er (PTSD)(Confirmed) 1999 Active 1-Seen in CT scan of the abdomen done at [facility] on 08-08-16 Social History Social History Type Response Smoking Status 10 or more cigarette s (1/2 pack or more)/day in last 30 days; Interested in cessation: No; Patient wants NRT during admission No entered on: 06/03/21 Sex
--- OUTSIDE RECORDS SUMMARY | 2023-01-20 23:59 | XMS_ITS | Continuity of Care Document ---
Author Name Unknown Organization [facility] ter Address [address] [place] [address]- Care Team Providers Care Industrial Renderer Name Role Phone Preet Sofia MD Primary Care Physician [phone] [place] [facility] [place] 10/17/[address] [address]- Encounter Diagnosis Chest pain(Final) - 10/17/21 Discharge Disposition: A-D/C AMA Attending Physician: Flex Cobos MD Admitting Physician: Flex Cobos MD Referring [...] Dry Weight Start Date: 06/25/21 Status: Ordered Dilaudid Inj 1 mg, Injection, IV Push Slowly, Once, STAT, 10/17/21 2:28:00 EDT, Stop date 10/17/21 2:28:00 EDT Start Date: 10/17/21 Stop Date: 10/17/21 Status: Completed Dilaudid Inj 1 mg, Injection, IV Push Slowly, Once, STAT, 10/17/21 6:04:00 EDT, Stop date 10/17/21 6:04:00 EDT Start Date: 10/17/21 Stop Date: 10/17/21 Status: Completed Entresto 24 mg-26 mg oral tablet 1 [...] 0 Refills, Maintenance, 06/09/21 12:34:00 EST, Tablet, [facility], Partial fill [...] 0 Refills, Maintenance, 06/09/21 12:34:00 EST, Cream, [facility], Partial fill upon patient request [...] 11:03:00 EDT, Aerosol, Route to Pharmacy Electronically, [id number]... Start Date: 07/29/21 Status: Ordered torsemide 20 [...] class I(Confirmed) Active Obstructive sleep apnea(Confirmed) Active .Cardiograph Operator: Zoltan Diaz [phone], [facility]. CPP(Confirmed) Active Post traumatic stress disord er (PTSD)(Confirmed) 1999 Active 1-Seen in CT scan of the abdomen done at [facility] on 08-08-16 Vital Signs Most recent to oldest [Reference Range]: 1 2 3 Oxygen Saturation [94-100 %] 98 % (10/17/21 9:03 AM) 99 % (10/16/21 11:47 PM) 98 % (10/16/21 11:39 PM) Pulse Rate [55-90 bpm] 63 bpm (10/17/21 9:03 AM) 72 bpm (10/16/21 11:39 PM) Blood Pressure [90-138/55-84 mm Hg] 159/90mm Hg *H* (10/17/21 9:03 AM) 142/80mm Hg *H* (10/16/21 11:39 PM) Respiratory Rate [16-30 br/min] 18 br/min (10/17/21 9:03 AM) 19 br/min (10/17/21 6:21 AM) 18 br/min (10/17/21 2:37 AM) Temperature [96.8-100.4 DegF] 97.7 DegF (10/17/21 9:03 AM) 98.7 DegF (10/16/21 11:39 PM) Liters per Minute 10 L/min (10/16/21 11:47 PM) 5 L/min (10/16/21 11:39 PM) Mode of Delivery (Oxygen) Room air (10/17/21 9:03 AM) High flow nasal cannula (10/16/21 11:47 PM) Nasal cannula (10/16/21 11:39 PM) Blood pressure sites Arm, left (10/17/21 9:03 AM) Arm, left (10/16/21 11:39 PM) Temperature Route Oral (10/17/21 9:03 AM) Oral (10/16/21 11:39 PM) Social History Social History Type Response Smoking Status 10 or more cigarette s (1/2 pack or more)/day in last 30 days; Interested in cessation: No; Patient wants NRT during admission No entered on: 06/03/21 Sex
--- OUTSIDE RECORDS SUMMARY | 2023-01-20 23:59 | XMS_ITS | Continuity of Care Document ---
Author Name Unknown Organization [facility] ter Address [address] [place] [address]- Care Team Providers Care Assistant Toddler Teacher Name Role Phone Preet Sofia MD Primary Care Physician [place] [facility] [place] - 09/26/[address] [address] Discharge Disposition: A-D/C Home Attending Physician: Manny Smallwood MD Admitting Physician: Geo Buchanan MD Referring [...] 03/28/20 Not Given Patient Refuses 1Location History: [facility] 2Location History: [facility] 3Location History: [facility] 4Location History: [facility] Medications acetaminophen 325 mg oral tablet 650 mg, 2, tablet, By Mouth, Every 6 hours, PRN, for 30 days, # 50 tablet, Refills 0, Tot. Refills 0, Acute 10/21/20 13:24:00 EDT, Pain , Moderate, 09/21/20 13:24:00 EDT, Route to Pharmacy Electronically, [facility], Partial fill upon pa... [...] Maintenance, 09/03/20 20:10:00 EDT,Route to Pharmacy Electronically, [facility], 180, cm, 09/03/20 9:24:00 EDT, Height, 172.7, kg, 08/28/20 4:44:00 EDT, Dry Weight Start Date: 09/03/20 Status: Ordered atorvastatin 40 mg oral tablet 1 tablet = 40 mg, By Mouth, Daily at bedtime, # 90 tablet, 4 Refills, Maintenance, 09/03/20 20:11:00 EDT, Tablet, [facility], 180, cm, 09/03/20 9:24:00 EDT, Height, 172.7, kg, 08/28/20 4:44:00 EDT, Dry Weight Start Date: 09/03/20 Status: Ordered carvedilol 3.125 mg oral tablet 3.125 mg, Tablet, By Mouth, 09/26/20 9:00:00 EDT Start Date: 09/26/20 Stop Date: 09/26/20 Status: Completed carvedilol 3.125 mg oral tablet 3.125 mg, 1, tablet, By Mouth, 2 times a day, # 180 tablet, Refills 0, Tot. Refills 0, Maintenance,09/21/20 13:23:00 EDT, [facility] upon patient request if the prescription is for a sched... Start Date: 09/21/20 Status: Ordered clopidogrel 75 mg oral tablet 75 mg, 1, tablet, By Mouth, Daily, # 90 tablet, Refills 3, Tot. Refills 3, Hard Stop 01/17/22 16:10:00 EDT, 01/22/21 16:10:00 EDT, Route to Pharmacy Electronically, [facility]/pharmacy #[id number], home delivery please, 180, cm, 04/08/20 13:32:00 EST, Height, 181.... Start Date: 01/22/21 Stop Date: 01/17/22 Status: Ordered Entresto 24 mg-26 mg oral tablet 1 tablet, By Mouth, 2 times a day, # 180 tablet, 0 Refills, Maintenance, 09/21/20 13:24:00 EDT, Tablet, [facility] 3, Partial fill upon patient request if the prescription is for a schedule II opioid drug., 1 tablet By Mouth 2 times a day,... Start Date: 09/21/20 Status: Ordered FLUoxetine 20 mg oral capsule 20 mg, 1, capsule, By Mouth, Daily, # 90 capsule, Refills 4, Tot. Refills 4, Maintenance, 09/03/20 20:09:00 EDT, Route to Pharmacy Electronically, [facility], [facility], 180, cm, 09/03/20 9:24:00 EDT, Height, 172.7, kg, ... Start Date: 09/03/20 Status: Ordered levothyroxine 0.05 mg oral tablet 1 tablet = 50 mcg, By Mouth, Daily, # 90 tablet, 4 Refills, Maintenance, 06/26/20 17:25:00 EST, Tablet, [facility], home delivery, 180, cm, 06/26/20 14:13:00 [...] 09/03/20 20:09:00 EDT, Route to Pharmacy Electronically, [facility], 180, cm, 09/03/20 9:24:00 EDT, Height, 172.7, kg, 08/28/20 4:44:00 EDT,... Start Date: 09/03/20 Status: Ordered oxyCODONE 5 mg oral capsule 1 capsule = 5 mg, By Mouth, Every 6 hours, PRN for pain, for 7 days, # 20 capsule, 0 Refills, Acute09/28/20 16:13:00 EDT, 09/21/20 16:13:00 EDT, Capsule, [facility], Partial fill upon patient [...] 09/21/20 13:24:00 EDT, Route to Pharmacy Electronically, [facility] Tablet, Partial... Start Date: 09/21/20 Stop Date: 10/21/20 Status: Ordered spironolactone 25 mg oral tablet 25 mg, 1, tablet, By Mouth, Daily, # 90 tablet, Refills 3, Tot. Refills 3, Maintenance, 06/26/20 17:25:00 EST, Route to Pharmacy Electronically, [facility], home delivery, 180, cm, 06/26/20 14:13:00 EST, Height, 181.6, kg, 03/27/20... Start Date: 06/26/20 Status: Ordered torsemide 20 mg oral tablet 1 tablet = 20 mg, By Mouth, Daily, # 90 tablet, 0 Refills, Maintenance, 09/21/20 13:23:00 EDT, Tablet, [facility], Partial fill upon patient [...] consistent with a cyst on CT at [facility] 04/2019(Confirmed) 04/2019 Active Coronary artery [...] Morbid obesity(Confirmed) Active Obstructive sleep apnea(Confirmed) Active .Gas Engineer: Zoltan Diaz [phone], [facility]. CPP(Confirmed) Active Post traumatic stress disord er (PTSD)(Confirmed) 1999 Active 1-Seen in CT scan of the abdomen done at [facility] on 08-08-16 Results Radiology Reports * Exam Date Time Procedure Performing Provider Status 09/25/20 5:41 PM Chest 2 Views Frontal and Lat Prudence Julio (Verified) Notes: (Chest 2 Views Frontal and Lat) Reason For Exam: Shortness of Breath RESULT: Chest 2 Views Frontal and Lat Chest 2 Views Frontal and Lat INDICATION/CLINICAL QUESTION: Hx of Present Illness: GEN MALAISE WITH N V; Reason: Shortness of Breath; Clinical Question(s): CHF / CHF TECHNIQUE: Frontal and lateral views of the chest. COMPARISON: 09/14/2020. FINDINGS: LINES AND TUBES: None. LUNGS AND PLEURA: RIGHT CHEST: The right lung is clear and there is no right effusion. LEFT CHEST: The upper and mid lung are clear. The left base cannot be assessed on the AP view of technical reasons but is normal on the lateral view. No effusion.. HEART, MEDIASTINUM AND LORE: The heart size is difficult to assess for technical reasons.. The mediastinum and lore are normal. BONES AND SOFT TISSUES: No acute bony abnormality. IMPRESSION: 1. No definite pulmonary or pleural disease. The left base is difficult to assess technically. 2. No new abnormality. WSN: [id number] Ordering Physician: Janae Santiago Dictated By: Eugene Polk MD Dictated Date/Time: 09/25/20 5:45 pm Reviewed By: Eugene Polk MD Signed By: Eugene Polk MD Signed Date/Time: 09/25/20 5:45 pm Transcribed By: SHANNA Transcribed Date/Time: 09/25/20 5:43 pm Vital Signs Most recent to oldest [Reference Range]: 1 2 3 Oxygen Saturation [94-100 %] 99 % (09/26/20 10:40 AM) 97 % (09/26/20 5:44 AM) 96 % (09/25/20 6:15 PM) Pulse Rate [55-90 bpm] 89 bpm (09/26/20 11:38 AM) 89 bpm (09/26/20 10:40 AM) 81 bpm (09/26/20 5:44 AM) Blood Pressure [90-138/55-84 mm Hg] 124/77mm Hg (09/26/20 11:38 AM) 124/77mm Hg (09/26/20 10:40 AM) 128/86mm Hg (09/26/20 5:44 AM) Respiratory Rate [16-30 br/min] 149 br/min *H* (09/26/20 2:14 PM) 16 br/min (09/26/20 10:40 AM) 20 br/min (09/26/20 5:44 AM) Temperature [96.8-100.4 DegF] 98.1 DegF (09/26/20 10:40 AM) 97.8 DegF (09/25/20 3:55 PM) Liters per Minute 3 L/min (09/26/20 5:44 AM) 2.5 L/min (09/25/20 6:15 PM) 2 L/min (09/25/20 3:55 PM) Mode of Delivery (Oxygen) Room air (09/26/20 10:40 AM) Nasal cannula (09/26/20 5:44 AM) Nasal cannula (09/25/20 6:15 PM) Blood pressure sites Arm, left (09/26/20 10:40 AM) Arm, left (09/26/20 5:44 AM) Arm, left (09/25/20 6:15 PM) Temperature Route Oral (09/26/20 10:40 AM) Oral (09/25/20 3:55 PM) Social History Social History Type Response Smoking Status 10 or more cigarette s (1/2 pack or more)/day in last 30 days; Other: [id number]; entered on: 09/03/20 Sex
--- OUTSIDE RECORDS SUMMARY | 2023-01-20 23:59 | XMS_ITS | Continuity of Care Document ---
Author Name Unknown Organization [facility] Address [address] [place] [address]- Care Team Providers Care Flight Inspector Name Role Phone Preet Sofia MD Primary Care Physician [phone] Encounter [facility] Date(s): 12/03/22 - 01/02/23 [facility]/[address] [address]- [place] Allergies, Adverse Reactions, Alerts No Known [...] History: [facility] 3Location History: [facility] 4Location History: [facility] Medications aspirin [...] 14:14:00 EDT, Route to Pharmacy Electronically, [facility]/pharmacy #[id number], 178, cm, 11/22/22 18:01:00 EDT, Height, 164.9, kg, 11/18/22 18:49:00 EDT, Start Date: 12/22/22 Status: Ordered duloxetine 30 mg oral enteric coated capsule 1 capsule = 30 mg, By Mouth, Daily at bedtime, # 30 capsule, 5 Refills, Maintenance, 01/21/23 14:06:00 EDT, Capsule, [facility]/pharmacy #[id number], Partial fill upon patient request [...] Maintenance, 10/19/22 20:08:00 EDT, REC Powder, [facility]/pharmacy #[id number], 17 Gm By Mouth Daily,PRN:Constipation,Instr:dissolve in water before taking, 180, cm,... Start Date: 10/19/22 Status: Ordered Miscellaneous Rx 0 Refills, Maintenance, THC, 12/21/22 17:28:00 EDT Start Date: 12/21/22 Status: Ordered nitroglycerin 0.4 mg sublingual tablet 1 tablet = 0.4 mg, Sublingual, Every 5 minutes, PRN Chest Pain, # 100 tablet, 0 Refills, Maintenance, 06/09/21 12:34:00 EST, Tablet, [facility], Partial fill upon patient [...] 14:06:00 EDT, Aerosol, Route to Pharmacy Electronically, [id number]... Start Date: 11/22/22 Status: Ordered torsemide 20 mg oral tablet 1 tablet = 20 mg, By Mouth, 2 times a day, # 60 tablet, 5 Refills, Maintenance, 12/22/22 14:08:00 EDT, Tablet, [facility]/pharmacy #[id number], 178, cm, 11/22/22 18:01:00 EDT, [...] consistent with a cyst on CT at [facility] 04/2019 Confirmed 04/2019 Active Coronary artery [...] Confirmed Active Obstructive sleep apnea Confirmed Active .Landscape Engineer: Lucita Segal [phone], [facility]. CPP Confirmed Active Post traumatic stress disorder (PTSD) Confirmed 1999 Active Pulmonary embolus most branches of R lung, Dx at [place], [place] on 11/28/22. L popliteal & peroneal DVT 11/18/22 Confirmed Active Severe obesity Confirmed Active 1-Seen in CT scan of the abdomen done at [facility] on 08-08-16 Social History Social History Type Response Smoking Status 10 or more cigarette s (1/2 pack or more)/day in last 30 days; Interested in cessation: No; Patient wants NRT during admission No entered on: 06/03/21 Sex Patient Care team information Care Team Personnel Name: Brenda Vanegas RN Position: [facility] RN Member Role: Primary Care Nurse Name: Renae Rashid RN Position: [facility] RN Member Role: Primary Care Nurse Name: Lizbeth Reardon RN Position: [facility] RN Member Role: Primary Care Nurse Name: Brittny Griffin RN Position: [facility] RN Member Role: Primary Care Nurse Name: Phill Michelle Position: [facility] RN Supv Member Role: Primary Care Nurse Name: Rickey Cruz RN Position: [facility] RN Member Role: Primary Care Nurse Name: Brandee Bee RN Position: [facility] RN Member Role: Primary Care Nurse Name: Janie Gamez RN Position: [facility] RN Member Role: Primary Care Nurse Name: Toby Trotter RN Position: [facility] RN Supv Member Role: Primary Care Nurse Name: Jing Santiago RN Position: [facility] RN Member Role: Primary Care Nurse Name: Sven Bustos RN Position: [facility] RN Member Role: Primary Care Nurse Name: Sharron Schaefer RN Position: [facility] RN Member Role: Primary Care Nurse Name: Franca Luis LPN Position: [facility] RN Member Role: Primary Care Nurse Name: Sheryl Linda RN Position: [facility] RN Member Role: Primary Care Nurse Name: Zara Aldridge RN Position: [facility] RN Member Role: Primary Care Nurse Name: Preet Sofia MD Position: [facility] Physician - Primary Care Member Role: PCP Address: Address: [address] [place] [address] Name: Nanci Roman Position: [facility] RN Member Role: Primary Care Nurse Name: Betsey Harvey RN Position: [facility] RN Member Role: Primary Care Nurse Name: Camila Cervantes RN Position: [facility] RN Member Role: Primary Care Nurse Name: Aruna Warren RN Position: [facility] RN Member Role: Primary Care Nurse Name: Naomi Kyle RN Position: [facility] RN Member Role: Primary Care Nurse Name: Pavan Espinoza RN Position: [facility] RN Member Role: Primary Care Nurse Name: Lynne Shah RN Position: [facility] RN Member Role: Primary Care Nurse Name: Ashwini Larson RN Position: [facility] SN RN Member Role: Primary Care Nurse Name: Lorraine Good RN Position: [facility] RN Member Role: Primary Care Nurse Name: Mohan Quijano RN Position: [facility] RN Member Role: Primary Care Nurse Name: Shaina Nagy RN Position: [facility] RN Member Role: Primary Care Nurse Name: Sarah Gordon RN Position: [facility] Onco RN Member Role: Primary Care Nurse Name: Catalina Cook RN Position: [facility] RN Member Role: Primary Care Nurse Name: Yun Wadsworth RN Position: [facility] RN Member Role: Primary Care Nurse Name: Sweta Lang RN Position: [facility] RN Member Role: Primary Care Nurse Name: Kely Morton RN Position: [facility] RN Member Role: Primary Care Nurse Care Team Related Persons Name: DIAN RODGERS Address: [place] [address] Name: KT LANDEROS Address: [place] [address] Name: TAE QUIROZ Address: home [place] [id number]
--- OUTSIDE RECORDS SUMMARY | 2023-01-20 23:59 | XMS_ITS | Continuity of Care Document ---
Author Name Unknown Organization [facility] Address Unknown Care Team Providers Care Humanities Department Chair Name Role Phone Preet Sofia MD Primary Care Physician Encounter [facility] Date(s): 04/27/21 - 05/27/21 [facility] Allergies, Adverse Reactions, Alerts No Known Allergies [...] 03/28/20 Not Given Patient Refuses 1Location History: [facility] 2Location History: [facility] 3Location History: [facility] 4Location History: [facility] Medications aspirin 81 mg oral [...] 0 Refills, Maintenance, 04/23/21 15:45:00 EST, Tablet, [facility], Partial fill upon [...] consistent with a cyst on CT at [facility] 04/2019(Confirmed) 04/2019 Active Coronary artery [...] Morbid obesity(Confirmed) Active Obstructive sleep apnea(Confirmed) Active .Gaming Surveillance Observer: Zoltan Diaz [phone], [facility]. CPP(Confirmed) Active Post traumatic stress disord er (PTSD)(Confirmed) 1999 Active Severe obesity(Confirmed) Active 1-Seen in CT scan of the abdomen done at [facility] on 08-08-16 Social History Social History Type Response Smoking Status 10 or more cigarette s (1/2 pack or more)/day in last 30 days; Other: [id number]; entered on: 09/03/20 Sex
--- OUTSIDE RECORDS SUMMARY | 2023-01-20 23:59 | XMS_ITS | Continuity of Care Document ---
Author Name Unknown Organization [facility] Address Unknown Care Team Providers Care Bowling Ball Assembler Name Role Phone Preet Sofia MD Primary Care Physician [phone] Encounter [facility] Date(s): 05/20/21 - 06/19/21 [facility] Allergies, Adverse Reactions, Alerts No Known [...] 1Location History: [facility] 2Location History: [facility] 3Location History: [facility] 4Location History: [facility] Medications aspirin 81 mg oral delayed release tablet 81 mg, By Mouth, Daily, # 30 tablet, Refills 5, Tot. Refills 5, Maintenance, 06/09/21 12:33:00 EST,Route to Pharmacy Electronically, [facility], 180, cm, 06/09/21 8:03:00 EST, Height, 168.5, kg, 06/03/21 15:52:00 EST, Dry Weight Start Date: 06/09/21 Stop Date: 12/06/21 Status: Ordered atorvastatin 40 mg oral tablet 1 tablet = 40 mg, By Mouth, Daily at bedtime, # 30 tablet, 5 Refills, Maintenance, 06/09/21 12:33:00 EST, Tablet, [facility], 180, cm, 06/09/21 8:03:00 EST, Height, 168.5, kg, 06/03/21 15:52:00 EST, Dry Weight Start Date: 06/09/21 Stop Date: 12/06/21 Status: Ordered carvedilol 3.125 mg oral tablet 3.125 mg, 1, tablet, By Mouth, 2 times a day, # 56 tablet, Refills 5, Tot. Refills 5, Maintenance, 06/09/21 12:33:00 EST, Route to Pharmacy Electronically, [facility], 180, cm, :03:00 EST, Height, 168.5, kg, 06/03/21 15:52:00 E... Start Date: 06/09/21 Status: Ordered clopidogrel 75 mg oral tablet 75 mg, 1, tablet, By Mouth, Daily, # 30 tablet, Refills 0, Tot. Refills 0, Maintenance, 06/09/21 12:33:00 EST, Route to Pharmacy Electronically, [facility], Partial fill upon patient request if the prescription is for a schedule II opioi... Start Date: 06/09/21 Status: Ordered Entresto 24 mg-26 mg oral tablet 1 tablet, By Mouth, 2 times a day, # 56 tablet, 5 Refills, Maintenance, 06/09/21 12:33:00 EST, Tablet, [facility], 1 tablet By Mouth 2 times a day,x28 days, 180, cm, 06/09/21 8:03:00 EST, Height, 168.5, kg, 06/03/21 15:52:00 EST, Dry Weight Start Date: 06/09/21 Stop Date: 11/24/21 Status: Ordered FLUoxetine 40 mg oral capsule 1 capsule = 40 mg, By Mouth, Daily, dose increase at time of next scheduled refill, # 28 capsule, 5Refills, Maintenance, 06/09/21 12:33:00 EST, Capsule, [facility], Partial fill upon patient request if the prescription is for a schedule... Start Date: 06/09/21 Status: Ordered levothyroxine 0.2 mg oral tablet = 200 mcg, By Mouth, Daily, # 30 tablet, 0 Refills, Maintenance, 06/09/21 12:31:00 EST, Tablet, [facility], Partial fill upon patient request if the prescription is for a schedule II opioid drug., 180, cm, 06/09/21 8:03:00 EST, Height, 1... Start Date: 06/09/21 Status: Ordered lidocaine 5% topical film 2 patch, Topically, Daily, PRN Pain , Moderate, remove patches after 12 hours. To chest and legs., # 30 patch, 0 Refills, Maintenance, 06/09/21 12:52:00 EST, Patch, [facility], Partial fill upon patient request if the prescription is for... Start Date: 06/09/21 Status: Ordered Nicoderm C-Q Clear 21 mg/24 hr transdermal film, extended release 1 patch, Topically, Daily, for 14 days, # 14 patch, 0 Refills, Acute 06/23/21 12:32:00 EST, 06/09/21 12:32:00 EST, Patch, [facility], Partial fill upon patient request if the prescription is for a schedule II opioid drug., 180, cm, 06/09... Start Date: 06/09/21 Stop Date: 06/23/21 Status: Ordered nitroglycerin 0.4 mg sublingual tablet 1 tablet = 0.4 mg, Sublingual, Every 5 minutes, PRN Chest Pain, # 100 tablet, 0 Refills, Maintenance, 06/09/21 12:34:00 EST, Tablet, [facility], Partial fill upon patient request [...] 0 Refills, Maintenance, 06/09/21 12:34:00 EST, Cream, [facility], Partial fill upon patient request if the prescription is for a schedule II opioid drug., 1 ap... Start Date: 06/09/21 Status: Ordered spironolactone 25 mg oral tablet 25 mg, 1, tablet, By Mouth, Daily, # 30 tablet, Refills 5, Tot. Refills 5, Maintenance, 06/09/21 12:34:00 EST, Route to Pharmacy Electronically, [facility], home delivery, 180, cm, 06/09/21 8:03:00 EST, Height, 168.5, kg, 06/03/21 15:52:... Start Date: 06/09/21 Stop Date: 12/06/21 Status: Ordered torsemide 20 mg oral tablet 2 tablet = 40 mg, By Mouth, 2 times a day, # 120 tablet, 0 Refills, Maintenance, 06/09/21 12:31:00 EST, Tablet, [facility], Partial fill upon patient request if the prescription is for a schedule II opioid drug., 180, cm, 06/09/21 8:03:0... Start Date: 06/09/21 Status: Ordered traZODone 50 mg oral tablet 50 mg, 1, tablet, By Mouth, Daily at bedtime, # 30 tablet, Refills 5, Tot. Refills 5, Maintenance, 06/09/21 12:34:00 EST, [facility], 180, cm, 228:03:00 EST, Height, 168.5, [...] consistent with a cyst on CT at [facility] 04/2019(Confirmed) 04/2019 Active Coronary artery [...] Morbid obesity(Confirmed) Active Obstructive sleep apnea(Confirmed) Active .Silk Brusher: Zoltan Diaz [phone], [facility]. CPP(Confirmed) Active Post traumatic stress disord er (PTSD)(Confirmed) 1999 Active Severe obesity(Confirmed) Active 1-Seen in CT scan of the abdomen done at [facility] on 08-08-16 Social History Social History Type Response Smoking Status 10 or more cigarette s (1/2 pack or more)/day in last 30 days; Interested in cessation: No; Patient wants NRT during admission No entered on: 06/03/21 Sex
--- OUTSIDE RECORDS SUMMARY | 2023-01-20 23:59 | XMS_ITS | Continuity of Care Document ---
Author Name Unknown Organization [facility] Address Unknown Care Team Providers Care Order Picker/Assembler Name Role Phone Preet Sofia MD Primary Care Physician Encounter [facility] Date(s): 03/24/21 - 04/23/21 [facility] Attending Physician: Alexis Daigle Admitting Physician: [...] Given Patient Refuses 1Location History: [facility] 2Location History: [facility] 3Location History: [facility] 4Location History: [facility] Medications aspirin 81 mg oral delayed [...] 05/24/21 15:45:00 EST, 04/23/21 15:45:00 EST, Patch, [facility], Partial fill upon patient request if the prescription is for a schedule II opioid drug., 180, cm, 04/23/21 14:40:00... Start Date: 04/23/21 Stop Date: 05/24/21 Status: Ordered nitroglycerin 0.4 mg sublingual tablet 1 tablet = 0.4 mg, Sublingual, Every 5 minutes, PRN Chest Pain, # 100 tablet, 0 Refills, Maintenance, 04/23/21 15:45:00 EST, Tablet, [facility], Partial fill upon patient [...] 0 Refills, Maintenance, 04/23/21 15:45:00 EST, Tablet, [facility], Partial fill upon patient request if the prescription is for a schedule II opioid drug., 180, cm, 04/23/21 14:40:... Start Date: 04/23/21 Status: Ordered traZODone 50 mg oral tablet 25 mg, 0.5, tablet, By Mouth, Daily at bedtime, # 15 tablet, Refills 0, Tot. Refills 0, Maintenance, 04/23/21 15:45:00 EST, Route to Pharmacy Electronically, [facility], Partial fill upon patient [...] consistent with a cyst on CT at [facility] 04/2019(Confirmed) 04/2019 Active Coronary artery disease, [...] Morbid obesity(Confirmed) Active Obstructive sleep apnea(Confirmed) Active .Cell Changer: Zoltan Diaz [phone], [facility]. CPP(Confirmed) Active Post traumatic stress disord er (PTSD)(Confirmed) 1999 Active Severe obesity(Confirmed) Active 1-Seen in CT scan of the abdomen done at [facility] on 08-08-16 Social History Social History Type Response Smoking Status 10 or more cigarette s (1/2 pack or more)/day in last 30 days; Other: [id number]; entered on: 09/03/20 Sex
--- OUTSIDE RECORDS SUMMARY | 2023-01-20 23:59 | XMS_ITS | Continuity of Care Document ---
Author Name Unknown Organization [facility] Address [address] [place] [id number]- Care Team Providers Care Tenter Frame Back Tender Name Role Phone Preet Sofia MD Primary Care Physician [phone] Encounter [facility] Date(s): 10/04/20 - 10/08/[address] [address] Discharge Disposition: A-D/C AMA Attending Physician: Radha Kelley MD Admitting Physician: Flex Cobos MD Referring [...] Given Patient Refuses 1Location History: [facility] 2Location History: [facility] 3Location History: [facility] 4Location History: [facility] Medications acetaminophen 325 mg oral tablet 650 mg, 2, tablet, By Mouth, Every 6 hours, PRN, for 30 days, # 50 tablet, Refills 0, Tot. Refills 0, Acute 10/21/20 13:24:00 EDT, Pain , Moderate, 09/21/20 13:24:00 EDT, Route to Pharmacy Electronically, [facility], Partial fill upon pa... Start Date: 09/21/20 Stop Date: 10/21/20 Status: Ordered aspirin 81 mg oral delayed release tablet 81 mg, By Mouth, Daily, # 90 tablet, Refills 4, Tot. Refills 4, Maintenance, 09/03/20 20:10:00 EDT,Route to Pharmacy Electronically, [facility], 180, cm, 09/03/20 9:24:00 EDT, Height, 172.7, kg, 08/28/20 4:44:00 EDT, Dry Weight Start Date: 09/03/20 Status: Ordered atorvastatin 40 mg oral tablet 1 tablet = 40 mg, By Mouth, Daily at bedtime, # 90 tablet, 4 Refills, Maintenance, 09/03/20 20:11:00 EDT, Tablet, [facility], 180, cm, 09/03/20 9:24:00 EDT, Height, 172.7, kg, 08/28/20 4:44:00 EDT, Dry Weight Start Date: 09/03/20 Status: Ordered carvedilol 3.125 mg oral tablet 3.125 mg, Tablet, By Mouth, 10/08/20 9:00:00 EDT Start Date: 10/08/20 Stop Date: 10/08/20 Status: Completed carvedilol 3.125 mg oral tablet 3.125 mg, 1, tablet, By Mouth, 2 times a day, # 180 tablet, Refills 0, Tot. Refills 0, Maintenance,09/21/20 13:23:00 EDT, Route to Pharmacy Electronically, [facility], Partial fill upon patient request if the prescription is for a sched... Start Date: 09/21/20 Status: Ordered clopidogrel 75 mg oral tablet 75 mg, 1, tablet, By Mouth, Daily, # 90 tablet, Refills 3, Tot. Refills 3, Hard Stop 01/17/22 16:10:00 EDT, 01/22/21 16:10:00 EDT, Route to Pharmacy Electronically, [facility]acy #[id number], home delivery please, 180, cm, 04/08/20 13:32:00 EST, Height, 181.... Start Date: 01/22/21 Stop Date: 01/17/22 Status: Ordered Entresto 24 mg-26 mg oral tablet 1 tablet, By Mouth, 2 times a day, # 180 tablet, 0 Refills, Maintenance, 09/21/20 13:24:00 EDT, Tablet, [facility], Partial fill upon patient request if the prescription is for a schedule II opioid drug., 1 tablet By Mouth 2 times a day,... Start Date: 09/21/20 Status: Ordered FLUoxetine 20 mg oral capsule 20 mg, 1, capsule, By Mouth, Daily, # 90 capsule, Refills 4, Tot. Refills 4, Maintenance, 09/03/20 20:09:00 EDT, Route to Pharmacy Electronically, [facility], home delivery, 180, cm, 09/03/20 9:24:00 EDT, Height, 172.7, kg, ... Start Date: 09/03/20 Status: Ordered levothyroxine 0.05 mg oral tablet 1 tablet = 50 mcg, By Mouth, Daily, # 90 tablet, 4 Refills, Maintenance, 06/26/20 17:25:00 EST, Tablet, [facility], [facility], 180, cm, 06/26/20 14:13:00 EST, Height, 181.6, kg, 03/27/20 14:58:00 EST, Dry Weight Start Date: 06/26/20 Status: Ordered nortriptyline 10 mg oral capsule 10 mg, 1, capsule, By Mouth, Daily, # 90 capsule, Refills 3, Tot. Refills 3, Maintenance, 09/03/20 20:09:00 EDT, Route to Pharmacy Electronically, [facility], 180, cm, 09/03/20 9:24:00 EDT, Height, 172.7, kg, 08/28/20 4:44:00 EDT,... Start Date: 09/03/20 Status: Ordered oxyCODONE 5 mg oral tablet 5 mg, Tablet, By Mouth, Every 6 hours for 7 days, PRN for Pain , Moderate, Routine, 10/06/20 14:51:00 EDT, Stop date 10/13/20 14:50:00 EDT Start Date: 10/06/20 Stop Date: 10/08/20 Status: Discontinued pantoprazole 20 mg oral delayed [...] 13:24:00 EDT, Route to Pharmacy Electronically, [facility] Tablet, Partial... Start Date: 09/21/20 Stop Date: 10/21/20 Status: Ordered spironolactone 25 mg oral tablet 25 mg, 1, tablet, By Mouth, Daily, # 90 tablet, Refills 3, Tot. Refills 3, Maintenance, 06/26/20 17:25:00 EST, Route to Pharmacy Electronically, [facility], home delivery, 180, cm, 06/26/20 14:13:00 EST, Height, 181.6, kg, 03/27/20... Start Date: 06/26/20 Status: Ordered torsemide 20 mg oral tablet 1 tablet = 20 mg, By Mouth, Daily, # 90 tablet, 0 Refills, Maintenance, 09/21/20 13:23:00 EDT, Tablet, [facility], Partial fill upon [...] consistent with a cyst on CT at [facility] 04/2019(Confirmed) 04/2019 Active Coronary artery [...] Morbid obesity(Confirmed) Active Obstructive sleep apnea(Confirmed) Active .Campus Recruiting Coordinator: Zoltan Diaz [phone], [facility]. CPP(Confirmed) Active Post traumatic stress disord er (PTSD)(Confirmed) 1999 Active 1-Seen in CT scan of the abdomen done at [facility] on 08-08-16 Results Radiology Reports * Exam Date Time Procedure Performing Provider Status 10/04/20 1:24 AM Chest Portable Lila Estrella; Auth (Verified) Notes: (Chest Portable) Reason For Exam: Shortness of Breath RESULT: Chest Portable Chest Portable Hx of Present Illness: comes from home w chest pain that started tonight midsternal nonradiating w shortness of breath.; Reason: Shortness of Breath; Clinical Question(s): CHF COMPARISON: 09/25/2020 FINDINGS: LINES AND TUBES: None. LUNGS AND PLEURA: Chest is underpenetrated. There is pulmonary venous congestion and peribronchial cuffing in keepingwith pulmonary edema. There is hazy opacity over the left lung base laterally which could be related to overlying soft tissues and/or pericardial fat pad. No large effusion. No pneumothorax. HEART, MEDIASTINUM AND CAROLA: Heart appears enlarged but this is likely exaggerated by technique. Normal upper mediastinal and hilar contour. BONES AND SOFT TISSUES: No acute abnormality. IMPRESSION: Findings suggest pulmonary venous congestion with early interstitial edema. Markedly enlarged heart, likely exaggerated by technique. WSN: [id number] Ordering Physician: Lisy Pierce Dictated By: Bre Mock MD Dictated Date/Time: 10/04/20 10:19 a Reviewed By: Bre Mock MD Signed By: Bre Mock MD Signed Date/Time: 10/04/20 10:19 am Transcribed By: SHANNA Transcribed Date/Time: 10/04/20 10:12 am Vital Signs Most recent to oldest [Reference Range]: 1 2 3 4 Oxygen Saturation [94-100 %] 98 % (10/08/20 7:23 AM) 100 % (10/08/20 3:50 AM) 97 % (10/07/20 10:59 PM) Pulse Rate [55-90 bpm] 69 bpm (10/08/20 8:57 AM) 69 bpm (10/08/20 7:23 AM) 74 bpm (10/08/20 3:50 AM) Blood Pressure [90-138/55-84 mm Hg] 115/70mm Hg (10/08/20 8:57 AM) 115/70mm Hg (10/08/20 7:23 AM) 100/63mm Hg (10/08/20 3:50 AM) Respiratory Rate [16-30 br/min] 16 br/min (10/08/20 8:56 AM) 20 br/min (10/08/20 7:23 AM) 16 br/min (10/08/20 4:43 AM) 16 br/min (10/08/20 4:43 AM) Temperature [96.8-100.4 DegF] 97.8 DegF (10/08/20 7:23 AM) 97.4 DegF (10/08/20 3:50 AM) 98 DegF (10/07/20 10:59 PM) Liters per Minute 5 L/min (10/04/20 6:11 AM) 5 L/min (10/04/20 3:34 AM) 5 L/min (10/04/20 1:17 AM) Mode of Delivery (Oxygen) Room air (10/08/20 7:23 AM) Room air (10/08/20 3:50 AM) Room air (10/07/20 10:59 PM) Blood pressure sites Arm, left (10/08/20 7:23 AM) Arm, right (10/08/20 3:50 AM) Arm, right (10/07/20 10:59 PM) Temperature Route Oral (10/08/20 7:23 AM) Oral (10/08/20 3:50 AM) Oral (10/07/20 10:59 PM) Social History Social History Type Response Smoking Status 10 or more cigarette s (1/2 pack or more)/day in last 30 days; Other: [id number]; entered on: 09/03/20 Sex
--- OUTSIDE RECORDS SUMMARY | 2023-01-20 23:59 | XMS_ITS | Continuity of Care Document ---
Author Name Unknown Organization [facility] Address Unknown Care Team Providers Care Pulp Refiner Operator Name Role Phone Preet Sofia MD Primary Care Physician Encounter [facility] [place] Date(s): 10/30/21 - 12/10/21 [facility] Attending Physician: Preet Sofia MD Admitting Physician: Preet Sofia MD Allergies, Adverse Reactions, Alerts No Known Allergies Immunizations Given and Recorded Vaccine Date Status Refusal Reason SARS-CoV-2 (COVID-19) [id number] vaccine 05/11/21 G iven influenza virus vaccine, [...] 03/28/20 Not Given Patient Refuses 1Location History: [facility] 2Location History: [facility] 3Location History: [facility] 4Location History: [facility] Medications aspirin 81 mg oral [...] Daily, # 28 tablet, 1 Refills, [facility], 180, cm, 11/03/21 2:14:00 EDT, Height, [...] 0 Refills, Maintenance, 06/09/21 12:34:00 EST, Tablet, [facility], Partial fill upon patient [...] 11:03:00 EDT, Aerosol, Route to Pharmacy Electronically, [id number]... Start Date: 07/29/21 Status: Ordered torsemide 20 [...] a cyst on [facility] at [facility] 04/2019(Confirmed) 04/2019 Active Coronary artery [...] Morbid obesity(Confirmed) Active Obstructive sleep apnea(Confirmed) Active .[employer] Insurance Agent: Tejas Segal [phone], [employer] [facility] [employer] CPP(Confirmed) Active Post traumatic stress disord er (PTSD)(Confirmed) 1999 Active Severe obesity(Confirmed) Active 1-Seen in CT scan of the abdomen done at [facility] on 08-08-16 Social History Social History Type Response Smoking Status 10 or more cigarette s (1/2 pack or more)/day in last 30 days; Interested in cessation: No; Patient wants NRT during admission No entered on: 06/03/21 Sex
--- OUTSIDE RECORDS SUMMARY | 2023-01-20 23:59 | XMS_ITS | Continuity of Care Document ---
Author Name Unknown Organization [facility] ter Address [address] [place] [id number]- Care Team Providers Care Learning Services Coordinator Name Role Phone Preet Sofia MD Primary Care Physician Encounter [facility] Date(s): 09/17/22 - 09/23/[address] [address]- Encounter Diagnosis Acute chest pain(Final) - 09/17/22 Discharge Disposition: A-D/C AMA Attending Physician: Paluino TORRES, Tonny Martinez Admitting Physician: Neri Alanis MD Referring Physician: Not on Staff, Referring MD Allergies, Adverse Reactions, Alerts No Known Allergies Immunizations Given and Recorded Vaccine Date Status Refusal Reason SARS-CoV-2 (COVID-19) mRNA-1278 vaccine 05/11/21 G iven influenza virus vaccine, [...] Daily, # 28 tablet, 1 Refills, [facility], 180, cm, 11/03/21 2:14:00 EDT, Height, [...] Start Date: 08/16/21 Status: Ordered Dilaudid Inj 2 mg, Injection, IV Push Slowly, Every 4 hours, PRN for Pain , Severe, Routine, 09/20/22 11:48:00 EDT Start Date: 09/20/22 Stop Date: 09/24/22 Status: Discontinued Entresto 24 mg-26 mg oral [...] Refills, Maintenance, 06/09/21 12:34:00 EST, Tablet, [facility] 3, Partial fill upon patient [...] 11:03:00 EDT, Aerosol, Route to Pharmacy Electronically, [id number]... Start Date: 07/29/21 Status: Ordered torsemide 20 [...] consistent with a cyst on CT at [facility] 04/2019 Confirmed 04/2019 Active Coronary [...] Confirmed Active Obstructive sleep apnea Confirmed Active .Corporate Legal Manager: Lucita Segal [phone], [facility]. [facility] Confirmed Active Post traumatic stress disorder (PTSD) Confirmed 2000 Active Severe obesity Confirmed Active 1-Seen in CT scan of the abdomen done at [facility] on 08-08-16 Results Radiology Reports * Exam Date Time Procedure Performing Provider Status 09/22/22 8:53 PM Knee 1 or 2 Views Left Radha Rodriguez ; Auth (Verified) Notes: (Knee 1 or 2 Views Left) Reason For Exam: Effusion RESULT: Knee 1 or 2 Views Left Knee 1 or 2 Views Left, 2 views Reason: Effusion; Clinical Question(s): Bursitis; Order Comment: COMPARISON: Left knee radiograph 11/16/2021. FINDINGS: There is no evidence of acute or healing fracture, dislocation or bone lesion. No significant arthritic changes. No osteochondral defects or intra-articular loose bodies. No knee effusion. Significant soft tissue swelling inferior to the patella, most likely reflective of fluid within the bursa. IMPRESSION: 1. No radiographic evidence of an acute osseous abnormality. 2. Prepatellar bursitis. WSN: [id number] Ordering Physician: Tonny Bob Dictated By: Sacha Hobbs MD Dictated Date/Time: 09/23/22 0:05 am Reviewed By: Sacha Hobbs MD Signed By: Sacha Hobbs MD Signed Date/Time: 09/23/22 0:05 am Transcribed By: SHANNA Transcribed Date/Time: 09/23/22 0:03 am * Exam Date Time Procedure Performing Provider Status 09/17/22 5:[address] Angio Chest Naomi Alfredo; Auth (Ve rified) Notes: (CT Angio Chest) Reason For Exam: PE suspected, Intermediate prob, positive D-dimer,;Other: RESULT: CT Angio Chest EXAMINATION: CT Angio Chest INDICATION: PE suspected, Intermediate prob, positive D-dimer. TECHNIQUE: Spiral CTA of the chest was performed after rapid IV contrast administration without cardiac gating, triggered by an SP on the main pulmonary artery. Images are formatted in multiple planes using 2-D multiplanar and 3-D maximum intensity projection. 50 cc of Omnipaque 300 was administered intravenously. Weight-based protocol using automatic tube modulation was used to optimize exposure parameters. CTDIvol Body: 5.10 mGy, DLP Body: 326 mGy*cm. COMPARISONS: 11/16/2021. ANGIOGRAPHIC FINDINGS: There is a thin peripheral filling defect in the right upper lobar pulmonaryartery, axial image 157 series 302, sagittal image 112 series 601 consistent with a small web-shaped embolism which may be chronic. No other filling defects are identified to suggest an embolism. No aneurysm or acute aortic abnormality seen on this study performed without cardiac gating. NON-ANGIOGRAPHIC FINDINGS: Meat Carver View Findings, Lines and Tubes: None. Trachea and Airways: Patent without evidence of tracheal or endobronchial lesion. Lungs and Pleura: There is mild bibasilar discoid scarring or atelectasis new or increasing compared to previous. No effusion or pneumothorax. Mediastinum and lore: No mass or hematoma. No mediastinal or hilar lymphadenopathy. No esophageal abnormality. Heart: Heart remains moderately enlarged with left ventricular thickening suggesting cardiomyopathy. No pericardial effusion. Moderate coronary artery calcification. Chest Wall Soft Tissues: Included portions appear unremarkable. Diaphragm and upper abdomen: No acute abnormalities. Bones: No acute abnormalities, no focal osseous lesions. IMPRESSION: 1. There is a subtle peripheral filling defect in the right upper lobar pulmonary artery more suggestive of a chronic finding rather than acute embolism. 2. No other focal filling defects. Ultrasound of lower extremities may be helpful to evaluate for any underlying clot burden. 3. Mild bibasilar atelectasis new compared to previous. 4. Heart is enlarged with findings suggestive of cardiomyopathy. 5. No evidence of pulmonary edema or pneumonia. WSN: [id number] Ordering Physician: Vladislav Knapp Dictated By: Kwan Muñoz MD Dictated Date/Time: 09/17/22 6:12 pm Reviewed By: Kwan Muñoz MD Signed By: Kwan Muñoz MD Signed Date/Time: 09/17/22 6:12 pm Transcribed By: SHANNA Transcribed Date/Time: 09/17/22 6:01 pm * Exam Date Time Procedure Performing Provider Status 09/17/22 4:13 PM Chest Portable Radha Rodriguez; Shasha ( Verified) Notes: (Chest Portable) Reason For Exam: CHF RESULT: Chest Portable Chest Portable REASON: CHF; Clinical Question(s): CHF / CHF COMPARISON: 12/11/2021 FINDINGS: LINES AND TUBES: None. LUNGS AND PLEURA: Clear lungs. Normal pulmonary vascularity. No pleural effusion. No pneumothorax. HEART, MEDIASTINUM AND LORE: Heart appears enlarged but this is likely exaggerated by technique. Normal mediastinal and hilar contour. BONES AND SOFT TISSUES: No acute abnormality. IMPRESSION: No evidence of acute abnormality. WSN: [id number] Ordering Physician: Vladislav Knapp Dictated By: Kennedy Martins MD Dictated Date/Time: 09/17/22 4:23 pm Reviewed By: Kennedy Martins MD Signed By: Kennedy Martins MD Signed Date/Time: 09/17/22 4:23 pm Transcribed By: SHANNA Transcribed Date/Time: 09/17/22 4:23 pm Vital Signs Most recent to oldest [Reference Range]: 1 2 3 Height 181 cm (09/23/22 8:24 AM) 181 cm (09/22/22 8:36 PM) 181 cm (09/22/22 2:16 PM) Weight 182 kg (09/22/22 2:31 AM) 181 kg (09/18/22 2:20 AM) Oxygen Saturation [94-100 %] 94 % (09/23/22 1:00 PM) 96 % (09/23/22 8:24 AM) 95 % (09/23/22 2:00 AM) Pulse Rate [55-90 bpm] 106 bpm *H* (09/23/22 1:00 PM) 94 bpm *H* (09/23/22 8:24 AM) 90 bpm (09/23/22 2:00 AM) Body Mass Index [18.5-24.99 kg/m2] 55.55 kg/m2 *>HHI* (09/22/22 2:31 AM) 55.25 kg/m2 *>HHI* (09/18/22 2:20 AM) Blood Pressure [90-138/55-84 mm Hg] 121/63mm Hg (09/23/22 1:00 PM) 125/72mm Hg (09/23/22 8:24 AM) 110/76mm Hg (09/23/22 2:00 AM) Respiratory Rate [16-30 br/min] 17 br/min (09/23/22 1:30 PM) 18 br/min (09/23/22 1:00 PM) 17 br/min (09/23/22 8:53 AM) Temperature [96.8-100.4 DegF] 97.4 DegF (09/23/22 1:00 PM) 97.2 DegF (09/23/22 8:24 AM) 98.1 DegF (09/23/22 2:00 AM) Liters per Minute 0 L/min (09/18/22 2:20 AM) 2 L/min (09/17/22 3:12 PM) Mode of Delivery (Oxygen) Room air (09/23/22 1:00 PM) Room air (09/23/22 8:24 AM) Room air (09/23/22 2:00 AM) Blood pressure sites Arm, right (09/23/22 1:00 PM) Arm, right (09/23/22 8:24 AM) Arm, right (09/23/22 2:00 AM) Temperature Route Oral (09/23/22 1:00 PM) Oral (09/23/22 8:24 AM) Oral (09/23/22 2:00 AM) Dry Weight 181 kg (09/18/22 2:20 AM) 182 kg (09/18/22 12:20 AM) 182 kg (09/17/22 9:54 PM) Weight Obtained Via Bed scale (09/22/22 2:31 AM) Bed scale (09/18/22 2:20 AM) Social History Social History Type Response Smoking Status 10 or more cigarette s (1/2 pack or more)/day in last 30 days; Interested in cessation: No; Patient wants NRT during admission No entered on: 06/03/21 Sex Admission evaluation note * Alejandra TORRES, Aixa Mello: PERFORM, MODIFY Event Display: Admission Note Authored Date: Patient: ??JAY SOL ? Age:??52 Years?Sex:??Male?:??1970?? Chief Complaint/Reason for Consultation coming from home, discharged from [facility] this morning at 3am. recently in coma for 1 month, hxof meth abuse and STEMI in past. found today to have ST elevations in V1-V6 with sob and midsternalpain. History of Present Illness Mr. Sol is a 52 year old gentleman with a PMH of CAD s/p PCI/KATARINA, ischemic cardiomyopathy, HFrEF 10-15% (2021), CKD, HTN, HLD, hypothyroidism, IONA, tobacco use and recent respiratory arrest and month-long intubation after amphetamine overdose who presented to the ED with chest pain and presented as a possible STEMI. ?? He had been hospitalized in [place] over the past 3 months after respiratory arrest and and per documentation a month-long intubation due to amphetamine overdose.?? He then [facility] 2 [facility] and left AGAINST MEDICAL ADVICE due to being unable to regain walking abilities.?? He wenthome by car and crawled up the stairs.?? Today he developed worsening shortness of breath and substernal chest pain that he felt was like his prior IA.?? He called EMS and EKG was concerning for diffuse ST elevations and reciprocal changes so STEMI was activated prehospital.?? On arrival he was hemodynamically stable with heart rate 101 and blood pressure 97/70, 98% on room air.?? Labs showed VBG7.49/39.5, WBC 11.1, Hb 13.3, D-dimer 1.68, INR 1, unremarkable CMP, lactate two-point 9 repeat 1.8, NT proBNP 685, troponin 98 then 99, COVID-negative.?? EKG shows sinus tachycardia with ventricularrate 110 bpm, prolonged QRS with LVH, normal QTc, J-point elevation unchanged from prior.?? Chest x-ray showed no acute abnormalities.?? CTA chest showed subtle peripheral filling defect in right uppe r lobar pulmonary artery suggestive of chronic rather than acute embolism, no other focal filling defects, mild bibasilar atelectasis, enlarged heart, no pulmonary edema or focal consolidation.?? He was given 324 mg of aspirin and started on a heparin drip due to elevated troponin, evaluate by cardiology at bedside and cardiology were officially consulted. ?? On my evaluation he feels improved on oxygen, has mild shortness of breath and chest pain.?? Denies fevers or chills, no nausea/vomiting/diarrhea/abdominal pain, states he does not have strength in his legs and needs to ambulate with a walker and bilateral lower extremity braces. ?? Review of Systems All systems reviewed and negative except as indicated in HPI. Objective Vital Signs?? Temperature: 97.6 DegF (09/17/22 15:54:00) Temperature Route: Oral (09/17/22 15:54:00) Pulse Rate:??101 bpm??High (09/17/22 21:54:00) Respiratory Rate: 17 br/min (09/17/22 21:54:00) Systolic Blood Pressure: 120 mm Hg (09/17/22 21:54:00) Diastolic Blood Pressure: 79 mm Hg (09/17/22 21:54:00) Blood pressure sites: Arm, right (09/17/22:54:00) Mean Arterial Pressure: 93 mm Hg (09/17/22:54:00) Pulse Pressure: 41 mm Hg (09/17/22 21:54:00) Oxygen Saturation: 99 % (09/17/22 21:54:00) Liters per Minute: 2 L/min (09/17/22 15:12:00) Mode of Delivery (Oxygen): Room air (09/17/22:54:00) Early Warning Score: 3 (09/17/22:54:34) ? Intake/Output? No Data Available ? Physical Exam Constitutional: Alert, in no acute distress. Head EENT: Extraocular muscle movement intact.??Moist mucous membranes.?? Neck: Supple. No JVD. Respiratory: Clear to auscultation. No wheezing or crackles. No use of accessory muscles. Cardiovascular: S1S2 regular. No murmurs, rubs or gallops.?? Today's chest pain did Gastrointestinal: Abdomen soft, non-tender, non-distended. Normal bowel sounds. Genitourinary: No CVA tenderness. Extremities: No lower extremity pitting??edema. No cyanosis or clubbing. Neurologic: AAOx3, Speech normal. No focal neurological deficits. Skin: No rash. Psychiatric: Normal mood and affect Assessment/Plan Chest pain History of CAD s/p PCI/KATARINA Troponin elevation Differentials include NSTEMI versus type II IA due to demand ischemia from CHF exacerbation ??? Cardiology consulted, appreciate recs ??? Continue heparin drip ??? Continue aspirin and statin ??? Continue low-dose Entresto ??? Continue carvedilol ???Continue telemetry ??? As needed nitro/EKG for any chest pain ?? Acute on chronic systolic and diastolic heart failure Appears clinically hypervolemic Elevated NT proBNP ??? Diuresis with IV Lasix 80 mg ??? Fluid goal -1 to 2 L ??? Afterload reduction with low-dose Entresto ??? Continue GDMT with Entresto, resume carvedilol and spironolactone tomorrow ?? Hypothyroidism ??? Continue home levothyroxine ?? Hypertension ??? Continue home Entresto and carvedilol ?? Hyperlipidemia ??? Continue home statin ?? CKD III No LACEY - avoid nephrotoxins - renally dose meds - monitor BMP ?? Code status: full DVT ppx:??heparin Diet: regular Dispo: floors ?? Total Visit Time: I personally spent a total of 80 minutes, including both zics-jl-uhjt and joq-uyjr-nf-face time on the date of the encounter, addressing the above diagnoses. Activities performed in this time include chart review, obtaining / reviewing history, performing amedically necessary evaluation, documentation and counseling. ?? Aixa Roberts MD Histories Past Medical History/Problem List Active Problems??(20) .Corporate Legal Manager: Lucita Segal [phone], [employer] [facility]. [facility] Acid reflux Cannabinoid hyperemesis syndrome Chronic kidney disease (CKD) stage G2/A2, mildly decreased glomerular filtration rate (GFR) [id number] mL/min/1.73 square meter and albuminuria creatinine ratio [...] units consistent witha cyst on CT at [facility] 04/2019 ? Past Surgical History Median [...] or more)/day in last 30 days. ??Other: [id number]. Electronic Cigarette/Vaping Details:??Electronic Cigarette Use: Never. ? [...] Mouth?Daily at bedtime ? Inpatient Medications Medications (18) Active SCHEDULED: (7) Aspirin 81 mg EC Tablet (aspirin 81 [...] tablet, By Mouth, 2 times a day Trazodone 50 mg Tablet (traZODone 50 mg oral tablet) ??50 mg, By Mouth, Daily at bedtime CONTINUOUS: (1) Heparin 25,000 units / 250 mL D5W premix 25,000 units [12 units/kg/hr] + D5%W Premixed IV 250 mL (Heparin 25,000 units in 250 mL Premix 25,000 units [12 units/kg/hr] + D5%W Premixed IV 250 mL) ??250 mL, IV Infusion, 21.84 mL/hr PRN: (10) Acetaminophen 325 mg Tablet (Acetaminophen Tablet) ??650 [...] 1.1 mL, IV Push, Every 6 hours Melatonin 3 mg Tablet (Melatonin Tablet) ??3 mg, By Mouth, Daily at bedtime NaCl 0.9% Flush 3ml (NaCL 0.9% Flush) ??3 mL, IV Push, Every 8 hours Nitroglycerin 0.4 mg Sublingual Tablet (Nitroglycerin 0.4mg Sublingual Tablet) ??0.4 mg, Sublingual, Every 5 minutes Polyethylene Glycol 17 Gm Powder (MiraLax Powder) ??17 Gm 1 pack/packet, By Mouth, Daily Senna 8.6 mg / Docusate 50 mg tablet (Docusate/Senna Tablet) ??1 tablet, By Mouth, 2 times a day Simethicone 80 mg Chewable Tablet (Simethicone Tablet) ??80 mg, Chew, 3 times a day ? Results Recent Labs BLOOD COUNT & DIFF WBC 11.1 k/mm3 (High)?? 09/17/2022 15:20 RBC 4.27 m/mm3 (Low)?? 09/17/2022 15:20 Hgb 13.3 Gm/dL (Low)?? 09/17/2022 15:20 Hct 41.5 % ()?? 09/17/2022 15:20 MCV 97.2 femtoliters (High)?? 09/17/2022 15:20 MCH 31.1 pg ()?? 09/17/2022 15:20 MCHC 32.0 g/dL (Low)?? 09/17/2022 15:20 Platelet Count 349 k/mm3 ()?? 09/17/2022 15:20 RDW-SD 54.9 femtoliters (High)?? 09/17/2022 15:20 MPV 9.9 femtoliters ()?? 09/17/2022 15:20 Nucleated RBC (Automated) 0.0 #/100 WBC'S ()?? 09/17/2022 15:20 Abs. NRBC 0.0 k/mm3 ()?? 09/17/2022 15:20 Abs. Neut 7.9 k/mm3 (High)?? 09/17/2022 15:20 Abs. Lymph 1.9 k/mm3 ()?? 09/17/2022 15:20 Abs. Scurry 0.8 k/mm3 ()?? 09/17/2022 15:20 Abs. Eo 0.4 k/mm3 ()?? 09/17/2022 15:20 Abs. Baso 0.0 k/mm3 ()?? 09/17/2022 15:20 Neut % 71.4 % ()?? 09/17/2022 15:20 Lymph % 16.8 % ()?? 09/17/2022 15:20 Scurry % 7.6 % ()?? 09/17/2022 15:20 Eos % 3.3 % ()?? 09/17/2022 15:20 Baso % 0.4 % ()?? 09/17/2022 15:20 Hemoglobin (POC) POC Cartridge 13.9 Gm/dL ()?? 09/17/2022 15:10 Hematocrit (POC) POC Cartridge 41 % ()?? 09/17/2022 15:10 Imm Gran 0.5 % ()?? 09/17/2022 15:20 Abs. Imm Gran 0.1 k/mm3 ()?? 09/17/2022 15:20 ?? BLOOD GAS pH Venous (POC) POC Cartridge 7.49 (High)?? 09/17/2022 15:10 pCO2 Venous (POC) POC Cartridge 39.5 mm Hg (Low)?? 09/17/2022 15:10 pO2 Venous (POC) POC Cartridge 18 mm Hg (Low)?? 09/17/2022 15:10 Est Bicarbonate (POC) POC Cartridge 30.3 mmol/L (High)?? 09/17/2022 15:10 % O2 Sat Venous (POC) POC Cartridge 32 ()?? 09/17/2022 15:10 Base Excess (POC) POC Cartridge 7 ()?? 09/17/2022 15:10 Specimen Type - Blood Gas VENOUS ()?? 09/17/2022 15:10 ?? CARDIAC Nt-Probnp 685 pg/mL (High)?? 09/17/2022 15:20 High Sensitivity Troponin (HSTnT) 99 ng/L (Critical)?? 09/17/2022 18:05 ?? CHEM GENERAL Sodium 141 mmol/L ()?? 09/17/2022 15:20 Potassium 4.7 mmol/L ()?? 09/17/2022 15:20 Chloride 100 mmol/L ()?? 09/17/2022 15:20 Bicarbonate Level 26 mmol/L ()?? 09/17/2022 15:20 Anion Gap 15 ()?? 09/17/2022 15:20 Sodium (POC) POC Cartridge 140 mmol/L ()?? 09/17/2022 15:10 Potassium (POC) POC Cartridge 4.2 mmol/L ()?? 09/17/2022 15:10 Glucose Level 139 mg/dL (High)?? 09/17/2022 15:20 Glucose (POC) POC Cartridge 141 (High)?? 09/17/2022 15:10 BUN 26 mg/dL (High)?? 09/17/2022 15:20 Creatinine-Blood 0.8 mg/dL ()?? 09/17/2022 15:20 Estimated GFR Creatinine 107 ML/MIN/1.73 M2 ()?? 09/17/2022 15:20 Calcium 10.3 mg/dL ()?? 09/17/2022 15:20 Ionized Calcium (POC) POC Cartridge 1.18 mmol/L ()?? 09/17/2022 15:10 Protein, Total 7.4 Gm/dL ()?? 09/17/2022 15:20 Albumin 4.3 Gm/dL ()?? 09/17/2022 15:20 AG Ratio 1.4 ()?? 09/17/2022 15:20 Alkaline Phosphatase 60 units/L ()?? 09/17/2022 15:20 AST (SGOT) 30 units/L ()?? 09/17/2022 15:20 ALT (SGPT) 34 units/L ()?? 09/17/2022 15:20 Bilirubin, Total 0.4 mg/dL ()?? 09/17/2022 15:20 Lactate 1.8 mmol/L ()?? 09/17/2022 16:32 ?? COAG INR 1.0 ()?? 09/17/2022 15:20 Protime (PT) 10.6 seconds ()?? 09/17/2022 15:20 APTT 23.2 seconds (Low)?? 09/17/2022 16:32 D-Dimer 1.68 mg/L FEU (High)?? 09/17/2022 15:20 ?? VIROLOGY COVID-19 by RT-PCR NEGATIVE ()?? 09/17/2022 18:14 ? Blood Glucose Trend Glucose Level:??139 mg/dL??High (09/17/22 15:20:00) Glucose (POC) POC Cartridge:??141??High (09/17/22 15:10:00) ? CBC, CBC w/Diff?? CBC?? Differential?? WBC:??11.1 k/mm3??High (15:20) Abs. Neut:??7.9 k/mm3??High (15:20) RBC:??4.27 m/mm3??Low (15:20) Abs. Lymph: 1.9 k/mm3 (15:20) Hct: 41.5 % (15:20) Abs. Scurry: 0.8 k/mm3 (15:20) RDW-SD:??54.9 femtoliters??High (15:20) Abs. Eo: 0.4 k/mm3 (15:20) Nucleated RBC (Automated): 0 #/100 WBC'S (15:20) Abs. Baso: 0 k/mm3 (15:20) Abs. NRBC: 0 k/mm3 (15:20) Neut %: 71.4 % (15:20) ?? Lymph %: 16.8 % (15:20) ?? Scurry %: 7.6 % (15:20) ?? Eos %: 3.3 % (15:20) ?? Baso %: 0.4 % (15:20) ?? Hemoglobin (POC) POC Cartridge: 13.9 Gm/dL (15:10) ?? Hematocrit (POC) POC Cartridge: 41 % (15:10) ?? Imm Gran: 0.5 % (15:20) ?? Abs. Imm Gran: 0.1 k/mm3 (15:20) ? LFT Albumin: 4.3 Gm/dL (15:20) Alkaline Phosphatase: 60 units/L (15:20) ALT (SGPT): 34 units/L (15:20) AST (SGOT): 30 units/L (15:20) Bilirubin, Total: 0.4 mg/dL (15:20) Protime (PT): 10.6 seconds (15:20) ?? Urinalysis?? No qualifying data available. ?? Microbiology ?? COVID-19 (Novel Coronavirus), Rapid PCR?? Completed?? Source: Nasal Body Site: Nose Collected Dt/Tm: 09/17/2022 17:42 Last Updated Dt/Tm: 09/17/2022 19:00 ? Blood Gases Specimen Type - Blood Gas: VENOUS (15:10) pH Venous (POC) POC Cartridge:??7.49??High (15:10) pCO2 Venous (POC) POC Cartridge:??39.5 mm Hg??Low (15:10) pO2 Venous (POC) POC Cartridge:??18 mm Hg??Low (15:10) Est Bicarbonate (POC) POC Cartridge:??30.3 mmol/L??High (15:10) % O2 Sat Venous (POC) POC Cartridge: 32 (15:10) Base Excess (POC) POC Cartridge: 7 (15:10) ?? Cardiology * Event Display: Cardiac Rhythm Strips Authored Date: Hospital Progress note * Kristy SANDERSON, Whitney: PERFORM, SIGN, VERIFY Event Display: Progress Note Hospital Authored Date: [id number] Patient: JAY SOL Age: 52 years Sex: Male : 1970 Associated Diagnoses: None Author: Kristy SANDERSON, Whitney Findings Problem Related to Alteration in Cardiac Function (new) : Alteration in Cardiac Function/new 09/23/2022 9:00 EDT Alteration in Cardiac Status Related to Chest pain, Other: NSTEMI Goals & Outcomes, Cardiac Status Pt will resume/maintain adequate cardiac output, Pt will resume/maintain adequate hemodynamic status, Pt will resume/maintain adequate respiratory function, Pt will resume/maintain intact neuro function, Pt will maintain adequate GI/ function appropriate for pt Cardiac Interventions Implemented Assess/monitor cardiac status, Assess/monitor neuro status, Assess/monitor respiratory status BH Goals/Interventions, Cardiac Yes Cardiac, Problem Start 09/19/2022 21:06 Reviewed Plan with, Cardiac Status Patient Patient Progression, Cardiac Status Patient progressing according to plan . Nursing Data Vital Signs : VITAL SIGNS SECTION 09/23/2022 8:24 EDT Early Warning Score 2.00 09/23/2022 8:24 EDT Temperature 97.2 DegF Temperature Route Oral Pulse Rate 94 bpm H Respiratory Rate 18 br/min Systolic Blood Pressure 125 mm Hg Diastolic Blood Pressure 72 mm Hg Blood pressure sites Arm, right Mean Arterial Pressure 90 mm Hg Pulse Pressure 53 mm Hg Oxygen Saturation 96 % Mode of Delivery (Oxygen) Room air . Evaluation Patient is A&O x4. Not on tele. C/o pain of 9/10, pain meds given. Patient is able to make his needs known. Cardiology team signed off on patients case. Transfer order in to W4. . Discharge Information Rehabilitation Discharge : Rehab Discharge Index 09/22/2022 11:06 EDT Comments on treatment indicated OT to address ADLs, func xfers/mob, safety, pt education. Rehab recommended. Full chart review completed Yes Hospital course Hospital course 09/18/2022 8:23 EDT Comments on treatment indicated See pt for ther ex, ther act, and gait with LRD Distance pt will ambulate 50 ft with B afos and LRD Full chart review completed Yes Other findings See comments Plan of care PT Gait training, Transfer training, Therapeutic exercise, Functional Activities, Balance training * Jing Santiago RN: PERFORM, SIGN, VERIFY, MODIFY, SIGN, MODIFY, SIGN Event Display: Progress Note Hospital Authored Date: Patient: JAY SOL Age: 52 years Sex: Male : 1970 Associated Diagnoses: None Author: Jing Santiago RN Findings Narrative/Incidental Assumed care of pt at 1900. A&OX4, RA. Upon entry of pt room pt is on phone yelling, appears dom upset. Male visitor in room with pt at this time, helps pt to wheelchair. Attempted to conduct biophysical assessment, pt declined. Pt states to this video game script writer he is leaving to smoke a joint Pt hascurrent orders to go to [facility] for 15-20 min at a time. This RN tells pt smoking while admitted is against hospital rules and that transport would be here within the hour to take pt for xray of L knee we are currently treated with IV pain medications. Pt states he doesnt give a fk and needs something to take the edge off Pt leaves, this RN calls security and provider. Provider [email or web address] states [facility] privelges will be d/c and security will be advised. Radiology called toreschedule xray for this shift, 2030: transport booked for pt to go to radiology. No acute events overnight. No chest pain or discomfort. +3 edema BLE, lung sounds diminished, ABD is rounded, non tender. Continent of both urinal within reach. POC ongoing.. Discharge Information Rehabilitation Discharge : Rehab Discharge Index 09/18/2022 8:23 EDT Comments on treatment indicated See pt for ther ex, ther act, and gait with LRD Distance pt will ambulate 50 ft with B afos and LRD Full chart review completed Yes Other findings See comments Plan of care PT Gait training, Transfer training, Therapeutic exercise, Functional Activities, Balance training * Malgorzata Crawford RN: PERFORM, SIGN, VERIFY Event Display: Progress Note Hospital Authored Date: Patient: JAY SOL Age: 52 years Sex: Male : 1970 Associated Diagnoses: None Author: Malgorzata Crawford RN Findings Problem Related to Alteration in Cardiac Function (new) : Alteration in Cardiac Function/new 09/22/2022 17:00 EDT Alteration in Cardiac Status Related to Chest pain, Other: NSTEMI Goals & Outcomes, Cardiac Status Pt will resume/maintain adequate cardiac output, Pt will resume/maintain adequate hemodynamic status, Pt will resume/maintain adequate respiratory function, Pt will resume/maintain intact neuro function, Pt will maintain adequate GI/ function appropriate for pt Cardiac Interventions Implemented Assess/monitor cardiac status, Assess/monitor neuro status, Assess/monitor respiratory status, Call/Report variances in ECG to provider, Ensure adequate caloric intake, If no bowel movement in 3 days activate bowel regime, Monitor anticoagulation values, Teach/encourage deep breath & cough exercises BH Goals/Interventions, Cardiac Yes Cardiac, Problem Start 09/19/2022 21:06 Reviewed Plan with, Cardiac Status Patient Patient Progression, Cardiac Status Patient progressing according to plan . Nursing Data Vital Signs : VITAL SIGNS SECTION 09/22/2022 14:17 EDT Early Warning Score 0.00 09/22/2022 14:16 EDT Temperature 98.8 DegF Temperature Route Oral Pulse Rate 92 bpm H Respiratory Rate 19 br/min Respiratory Rate 20 br/min Systolic Blood Pressure 117 mm Hg Diastolic Blood Pressure 71 mm Hg Mean Arterial Pressure 86 mm Hg Pulse Pressure 46 mm Hg Oxygen Saturation 96 % Mode of Delivery (Oxygen) Room air 09/22/2022 9:20 EDT Early Warning Score 6.00 09/22/2022 9:19 EDT Early Warning Score 4.00 09/22/2022 9:06 EDT Pulse Rate 90 bpm Systolic Blood Pressure 123 mm Hg Diastolic Blood Pressure 73 mm Hg 09/22/2022 8:59 EDT Respiratory Rate 22 br/min 09/22/2022 8:03 EDT Early Warning Score 4.00 09/22/2022 8:00 EDT Temperature 97.9 DegF Temperature Route Oral Pulse Rate 85 bpm Respiratory Rate 19 br/min Systolic Blood Pressure 123 mm Hg Diastolic Blood Pressure 73 mm Hg Blood pressure sites Arm, right Mean Arterial Pressure 90 mm Hg Pulse Pressure 50 mm Hg Oxygen Saturation 93 % L Mode of Delivery (Oxygen) Room air . Evaluation pt alert oriented , c/o bilat lower leg pain , but drifting off to sleep , seen this am with md medicated with iv dilaudid for pain with somme effect , md aware , pt voiding clear yellow urine , see biophys and flow sheet , continue to monitor hemodynamics , pt went off floor for 1 hr, returned , had lunch , then wante shower , spoke with , pt able to use walker to get to br ,and shower chair with stanby assist from lizeth , instructed not to take long shower , .went on commode , huerta bm wound care done , medicate for pain with some effect , refused po dilaudid, pt with lag ant lower extrmityedema ,pulses pos by doplarpt instructed to keep legs elevated . Note * Paulino TORRES, Tonny D: PERFORM Event Display: Discharge/Transfer Note Hospital Authored Date: [id number] Patient: ??JAY SOL ? Age:??52 Years?Sex:??Male?:??1970?? Patient Information Discharge Location: W4 Primary Care Physician: Bismark TORRES, Preet Hall Admit Date/Time: 09/17/22 17:55 Discharge Disposition Discharge Disposition: AMA ?? Discharge Diagnosis Acute chest pain (R07.9) Morbid obesity (E66.01) Heart failure with reduced ejection fraction (I50.20) Anxiety (F41.9) Bilateral foot-drop (M21.371) Polyneuropathy (G62.9) Prepatellar bursitis of left knee (M70.42) Substance abuse (F19.10) Acid reflux Chronic kidney disease (CKD) stage G2/A2, mildly decreased glomerular filtration rate (GFR) [id number] mL/min/1.73 square meter and albuminuria creatinine ratio [...] mg oral tablet)?50?Milligram?1?tablet?By Mouth?Daily at bedtime ? Quality Measures Tobacco Use Treatment:? Allergies Allergies ?(Active and Proposed Allergies Only) NKA? (Severity: Unknown severity, Onset: Unknown) ? Hospital Course Chief Complaint: coming from home, discharged from [facility] this morning at 3am. recently in coma for 1 month, hx of meth abuse and STEMI in past. found today to have ST elevations in V1-V6 with sob and midsternal pain. ?? Mr. Sol is a 52 year old gentleman with a PMH of CAD s/p PCI/KATARINA, ischemic cardiomyopathy, HFrEF 10-15% (2021), CKD, HTN, HLD, hypothyroidism, IONA, tobacco use and recent respiratory arrest and month-long intubation after amphetamine overdose who presented to the ED with chest pain and presented as a possible STEMI.?? Cardiology consulted in this admission and recommended getting previous echo and left heart cath reports.?? Patient was continued on aspirin statin and Coreg.?? Also??patient with chronic systolic??and diastolic heart failure and was continued on Entresto??and Coreg.?? Patient also found to have??prepatellar bursitis??with swelling??and orthopedic surgery was consulted??as patient reported??having??drainage done twice before. ?? Patient has not been in good mood??both days that have seen him yesterday and today.?seem to be quite irritated with insurance company??this morning when I saw him. ??I discussed the plan??this morning.?? However I was informed later??that??patient??wishes to repeatedly go outside??to smoke??as well as vape THC as needed.?? 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 ??Per discussion with the patient he understands the risks??of leaving??against medical advice including .? # Chest pain ??# History of CAD s/p PCI/KATARINA ??Troponin elevation ??Differentials include NSTEMI versus type II IA due to demand ischemia from CHF exacerbation ??? Cardiology consulted, recommended obtaining previous echo and left heart cath reports ??? Continue aspirin and statin and ??carvedilol ?# chronic systolic and diastolic heart failure ??-c/w torsemide ??? Continue Entresto, carvedilol and spironolactone ?? #Swelling/prepatellar bursitis: Orthopedic surgery consult??however??patient left AMA before we could obtain the recommendations.. ??Patient reports it being drained twice before ?? # Hypothyroidism ???Was continued home levothyroxine ?? # Hypertension ? Entresto and carvedilol??was continued ?? # Hyperlipidemia ??? Continue home statin ?? # Morbidly obese: Outpatient follow-up ?? # CKD III ??No LACEY ??- avoid nephrotoxins ??- renally dose meds ??- monitor BMP ?#?severe peripheral neruopathy, b/l foot drop/ weakness ??# chronic pain ??PMR eval appreciated ??recc OP EMG,?needs proper fitting AFOs ??needs rehab ??adding po dilaudid to iv dosing in hopes of getting him off iv dilaudid Discussed with patient regarding gabapentin and Lyrica, he mentions that he has been on this in [facility]??which did not work and does not want it at this time ?substance abuse, will c/s addiction medicine ? Objective Assessment and Plan ? Vital Signs?? Temperature: 97.4 DegF (09/23/22 13:00:00) Temperature Route: Oral (09/23/22 13:00:00) Pulse Rate:??106 bpm??High (09/23/22 13:00:00) Respiratory Rate: 17 br/min (09/23/22 13:30:00) Systolic Blood Pressure: 121 mm Hg (09/23/22 13:00:00) Diastolic Blood Pressure: 63 mm Hg (09/23/22 13:00:00) Blood pressure sites: Arm, right (09/23/22 13:00:00) Mean Arterial Pressure: 90 mm Hg (09/23/22 08:24:00) Pulse Pressure: 58 mm Hg (09/23/22 13:00:00) Oxygen Saturation: 94 % (09/23/22 13:00:00) Mode of Delivery (Oxygen): Room air (09/23/22 13:00:00) Early Warning Score: 0 (09/23/22 14:30:35) ? . Physical Exam HEENT: ??mucous mucous membranes appear wet, PERRLA Cardiovascular: S1-S2 heard no murmurs appreciated Respiratory: CTA without any wheezing or crackles anteriorly GI: Abdomen nontender to palpation, no distention, no obvious hepatosplenomegaly Neuro: AOx3 plus date of , able to raise all extremities on commands,??dropfoot bilaterally Psych: Appears calm without any agitation ?? Left knee:??Significant swelling??about the??left knee??with prepatellar Pending Results Basic Metabolic Panel ordered on 09/23/2022 CBC ordered on 09/23/2022 Comprehensive Metabolic Panel ordered on 09/18/2022 Hold Gel Top Tube ordered on 09/17/2022 Hold Lavender Tube (BB) ordered on 09/17/2022 Magnesium Level ordered on 09/18/2022 Magnesium Level ordered on 09/23/2022 Phosphorus Level ordered on 09/18/2022 Phosphorus Level ordered on 09/23/2022 Home Health Face to Face ^[facility] Results Discharge Labs BLOOD COUNT & DIFF WBC 9.8 k/mm3 ()?? 09/19/2022 07:11 RBC 4.20 m/mm3 (Low)?? 09/19/2022 07:11 Hgb 12.8 Gm/dL (Low)?? 09/19/2022 07:11 Hct 40.9 % ()?? 09/19/2022 07:11 MCV 97.4 femtoliters (High)?? 09/19/2022 07:11 MCH 30.5 pg ()?? 09/19/2022 07:11 MCHC 31.3 g/dL (Low)?? 09/19/2022 07:11 Platelet Count 347 k/mm3 ()?? 09/19/2022 07:11 RDW-SD 55.4 femtoliters (High)?? 09/19/2022 07:11 MPV 9.7 femtoliters ()?? 09/19/2022 07:11 Nucleated RBC (Automated) 0.0 #/100 WBC'S ()?? 09/19/2022 07:11 Abs. NRBC 0.0 k/mm3 ()?? 09/19/2022 07:11 Abs. Neut 6.4 k/mm3 ()?? 09/19/2022 07:11 Abs. Lymph 1.9 k/mm3 ()?? 09/19/2022 07:11 Abs. Scurry 1.0 k/mm3 ()?? 09/19/2022 07:11 Abs. Eo 0.5 k/mm3 (High)?? 09/19/2022 07:11 Abs. Baso 0.0 k/mm3 ()?? 09/19/2022 07:11 Neut % 64.8 % ()?? 09/19/2022 07:11 Lymph % 19.1 % ()?? 09/19/2022 07:11 Scurry % 10.3 % ()?? 09/19/2022 07:11 Eos % 5.1 % ()?? 09/19/2022 07:11 Baso % 0.3 % ()?? 09/19/2022 07:11 Hemoglobin (POC) POC Cartridge 13.9 Gm/dL ()?? 09/17/2022 15:10 Hematocrit (POC) POC Cartridge 41 % ()?? 09/17/2022 15:10 Imm Gran 0.4 % ()?? 09/19/2022 07:11 Abs. Imm Gran 0.0 k/mm3 ()?? 09/19/2022 07:11 ?? BLOOD GAS pH Venous (POC) POC Cartridge 7.49 (High)?? 09/17/2022 15:10 pCO2 Venous (POC) POC Cartridge 39.5 mm Hg (Low)?? 09/17/2022 15:10 pO2 Venous (POC) POC Cartridge 18 mm Hg (Low)?? 09/17/2022 15:10 Est Bicarbonate (POC) POC Cartridge 30.3 mmol/L (High)?? 09/17/2022 15:10 % O2 Sat Venous (POC) POC Cartridge 32 ()?? 09/17/2022 15:10 Base Excess (POC) POC Cartridge 7 ()?? 09/17/2022 15:10 Specimen Type - Blood Gas VENOUS ()?? 09/17/2022 15:10 ? CARDIAC Nt-Probnp 685 pg/mL (High)?? 09/17/2022 15:20 High Sensitivity Troponin (HSTnT) 99 ng/L (Critical)?? 09/17/2022 18:05 ?? CHEM GENERAL Sodium 140 mmol/L ()?? 09/19/2022 07:20 Potassium 4.6 mmol/L ()?? 09/19/2022 07:20 Chloride 96 mmol/L (Low)?? 09/19/2022 07:20 Bicarbonate Level 30 mmol/L (High)?? 09/19/2022 07:20 Anion Gap 14 ()?? 09/19/2022 07:20 Sodium (POC) POC Cartridge 140 mmol/L ()?? 09/17/2022 15:10 Potassium (POC) POC Cartridge 4.2 mmol/L ()?? 09/17/2022 15:10 Glucose Level 173 mg/dL (High)?? 09/18/2022 10:10 Glucose (POC) POC Cartridge 141 (High)?? 09/17/2022 15:10 BUN 29 mg/dL (High)?? 09/19/2022 07:20 Creatinine-Blood 1.0 mg/dL ()?? 09/19/2022 07:20 Estimated GFR Creatinine 92 ML/MIN/1.73 M2 ()?? 09/19/2022 07:20 Calcium 9.3 mg/dL ()?? 09/18/2022 10:10 Ionized Calcium (POC) POC Cartridge 1.18 mmol/L ()?? 09/17/2022 15:10 Phosphorus 5.6 mg/dL (High)?? 09/18/2022 10:10 Magnesium 1.9 mg/dL ()?? 09/18/2022 10:10 Protein, Total 6.8 Gm/dL ()?? 09/18/2022 10:10 Albumin 3.9 Gm/dL ()?? 09/18/2022 10:10 AG Ratio 1.3 ()?? 09/18/2022 10:10 Alkaline Phosphatase 57 units/L ()?? 09/18/2022 10:10 AST (SGOT) 28 units/L ()?? 09/18/2022 10:10 ALT (SGPT) 31 units/L ()?? 09/18/2022 10:10 Bilirubin, Total 0.2 mg/dL ()?? 09/18/2022 10:10 Lactate 1.8 mmol/L ()?? 09/17/2022 16:32 ?? COAG INR 1.0 ()?? 09/17/2022 15:20 Protime (PT) 10.6 seconds ()?? 09/17/2022 15:20 APTT 46.1 seconds (High)?? 09/18/2022 10:10 D-Dimer 1.68 mg/L FEU (High)?? 09/17/2022 15:20 ?? URINE OTHER Est Creatinine Clearance 94.87 mL/min ()?? 09/19/2022 08:47 ? VIROLOGY COVID-19 by RT-PCR NEGATIVE ()?? 09/17/2022 18:14 ? 35 ??minutes spent on discharge * Ni Hay RN: PERFORM Event Display: Discharge/Transfer Note Hospital Authored Date: Nursing Discharge Note Entered On: 09/23/2022 14:33 EDT Performed On: 09/23/2022 14:32 EDT by Ni Hay RN Nursing Discharge Note 2 Discharge Time : 09/23/2022 14:20 EDT Discharge Level of Care at Discharge : Left Against Medical Advice AMA Form Signed : Yes Patient Left Unit Via : Wheelchair Patient Accompanied Off Unit with : Responsible adult DC Instructions Provided & Signed by Pt : No Patient Understands D/C Instructions : No Patient Instructions Discharge Signed : No Did Pt have Specialty Bed or Wound Vac : No Ni Hay RN - 09/23/2022 14:32 EDT XR Knee - left 1 or 2 Views * SPowerscsaeed , CIS S: Sacha Mancini MD: VERIFY Event Display: Result: Authored Date: [id number] Knee 1 or 2 Views Left, 2 views Reason: Effusion; Clinical Question(s): Bursitis; Order Comment: COMPARISON: Left knee radiograph 11/16/2021. FINDINGS: There is no evidence of acute or healing fracture, dislocation or bone lesion. No significant arthritic changes. No osteochondral defects or intra-articular loose bodies. No knee effusion. Significant soft tissue swelling inferior to the patella, most likely reflective of fluid within the bursa. IMPRESSION: 1. No radiographic evidence of an acute osseous abnormality. 2. Prepatellar bursitis. WSN: [id number] Ordering Physician: Tonny Bob Dictated By: Sacha Hobbs MD Dictated Date/Time: 09/23/22 0:05 am Reviewed By: Sacha Hobbs MD Signed By: Sacha Hobbs MD Signed Date/Time: 09/23/22 0:05 am Transcribed By: SHANNA Transcribed Date/Time: 09/23/22 0:03 am Portable XR Chest Views * SEPIDEHowerfrances , NATHALIE S: TRANSCKennedy Workman MD: VERIFY Event Display: Result: Authored Date: [id number] Chest Portable REASON: CHF; Clinical Question(s): CHF / CHF COMPARISON: 12/11/2021 FINDINGS: LINES AND TUBES: None. LUNGS AND PLEURA: Clear lungs. Normal pulmonary vascularity. No pleural effusion. No pneumothorax. HEART, MEDIASTINUM AND LORE: Heart appears enlarged but this is likely exaggerated by technique. Normal mediastinal and hilar contour. BONES AND SOFT TISSUES: No acute abnormality. IMPRESSION: No evidence of acute abnormality. WSN: [id number] Ordering Physician: Vladislav Knapp Dictated By: Kennedy Martins MD Dictated Date/Time: 09/17/22 4:23 pm Reviewed By: Kennedy Martins MD Signed By: Kennedy Martins MD Signed Date/Time: 09/17/22 4:23 pm Transcribed By: SHANNA Transcribed Date/Time: 09/17/22 4:23 pm CTA Chest vessels W contrast IV * NATHALIE Garcia S: TRANSCRIKwan Bean MD: VERIFY Event Display: Result: Authored Date: [id number] EXAMINATION: CT Angio Chest INDICATION: PE suspected, Intermediate prob, positive D-dimer. TECHNIQUE: Spiral CTA of the chest was performed after rapid IV contrast administration without cardiac gating, triggered by an SP on the main pulmonary artery. Images are formatted in multiple planes using 2-D multiplanar and 3-D maximum intensity projection. 50 cc of Omnipaque 300 was administered intravenously. Weight-based protocol using automatic tube modulation was used to optimize exposure parameters. CTDIvol Body: 5.10 mGy, DLP Body: 326 mGy*cm. COMPARISONS: 11/16/2021. ANGIOGRAPHIC FINDINGS: There is a thin peripheral filling defect in the right upper lobar pulmonaryartery, axial image 157 series 302, sagittal image 112 series 601 consistent with a small web-shaped embolism which may be chronic. No other filling defects are identified to suggest an embolism. No aneurysm or acute aortic abnormality seen on this study performed without cardiac gating. NON-ANGIOGRAPHIC FINDINGS: Meat Carver View Findings, Lines and Tubes: None. Trachea and Airways: Patent without evidence of tracheal or endobronchial lesion. Lungs and Pleura: There is mild bibasilar discoid scarring or atelectasis new or increasing compared to previous. No effusion or pneumothorax. Mediastinum and lore: No mass or hematoma. No mediastinal or hilar lymphadenopathy. No esophageal abnormality. Heart: Heart remains moderately enlarged with left ventricular thickening suggesting cardiomyopathy. No pericardial effusion. Moderate coronary artery calcification. Chest Wall Soft Tissues: Included portions appear unremarkable. Diaphragm and upper abdomen: No acute abnormalities. Bones: No acute abnormalities, no focal osseous lesions. IMPRESSION: 1. There is a subtle peripheral filling defect in the right upper lobar pulmonary artery more suggestive of a chronic finding rather than acute embolism. 2. No other focal filling defects. Ultrasound of lower extremities may be helpful to evaluate for any underlying clot burden. 3. Mild bibasilar atelectasis new compared to previous. 4. Heart is enlarged with findings suggestive of cardiomyopathy. 5. No evidence of pulmonary edema or pneumonia. WSN: [id number] Ordering Physician: Vladislav Knapp Dictated By: Kwan Muñoz MD Dictated Date/Time: 09/17/22 6:12 pm Reviewed By: Kwan Muñoz MD Signed By: Kwan Muñoz MD Signed Date/Time: 09/17/22 6:12 pm Transcribed By: SHANNA Transcribed Date/Time: 09/17/22 6:01 pm Patient Care team information Care Team Personnel [...] Care Nurse Name: Jing Santiago [facility] RN Member Role: Primary Care Nurse Name: Sheryl Linda RN [facility] RN Member Role: Primary Care Nurse Name: Zara Aldridge RN Position: [facility] RN Member Role: Primary Care Nurse Name: Preet Sofia MD Position: [facility] Physician - Primary Care Member Role: PCP Address: Address: [address] [place] [address] Name: Betsey Harvey RN [facility] RN Member Role: Primary Care Nurse Name: Camila Cervantes RN Position: [facility] RN Member Role: Primary Care Nurse Name: Aruna Warren RN Position: [facility] RN Member Role: Primary Care Nurse Name: Naomi Kyle RN Position: [facility] RN Member Role: Primary Care Nurse Name: Naomi Mcadams RN Position: [facility] RN Member Role: Primary Care Nurse Name: Ashwini Larson RN Position: [facility] SN RN Member Role: Primary Care Nurse Name: Darren Ortega RN Position: [facility] RN Member Role: Primary Care Nurse Name: Lorraine Good RN Position: [facility] RN Member Role: Primary Care Nurse Name: Mohan Quijano RN Position: [facility] RN Member Role: Primary Care Nurse Name: Sarah Gordon RN Position: [facility] Onco RN Member Role: Primary Care Nurse Name: Catalina Cook RN Position: [facility] RN Member Role: Primary Care Nurse Name: Sweta Lang RN Position: [facility] RN Member Role: Primary Care Nurse Name: Kely Morton RN Position: [facility] RN Member Role: Primary Care Nurse Name: *Liz, ED Attending Position: [facility] ED Attendings Patient Name: *S, Inpt Attending Position: [facility] ED Medicine MD Name: Eryn Davis Position: [facility] ED OA Charge Member Role: ED Associate Name: Bria Coker RN Position: [facility] ED RN W/OE and Tasks Member Role: Patient Care Provider Name: Katie Huynh Position: [facility] ED [facility] Member Role: [employer] Name: Naomi Gray Position: [facility] Member Role: [employer] Care Team Related Persons Name: DIAN RODGERS Address: [place] [address] Name: KT LANDEROS Address: [place] [address] Name: TAE QUIROZ Address: home [place] [id number]
[2023-01-21] VITALS (7 sets, daily range): BP systolic 127–151; BP diastolic 61–91; PULSE 73–97; RESP 14–20; TEMP 36.1–36.7; O2SAT 91–96; BMI 52.7
--- OUTSIDE RECORDS SUMMARY | 2023-01-21 | XMS_ITS | Continuity of Care Document ---
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 3Location History: [facility] 4Location History: [facility] Medications aspirin 81 mg oral delayed release tablet 81 mg, By Mouth, Daily, # 90 tablet, Refills 4, Tot. Refills 4, Maintenance, 09/03/20 20:10:00 EDT,Route to Pharmacy Electronically, [facility], 180, cm, 09/03/20 9:24:00 EDT, Height, 172.7, kg, 08/28/20 4:44:00 EDT, Dry Weight Start Date: 09/03/20 Status: Ordered Ativan 0.5 mg oral tablet 1 tablet = 0.5 mg, By Mouth, 3 times a day, PRN as needed for anxiety, 0 Refills, Maintenance, 01/14/21 10:44:00 EDT, Tablet, Partial fill upon patient request if the prescription is for a schedule II opioid drug. Start Date: 01/14/21 Status: Ordered atorvastatin 40 mg oral tablet 1 tablet = 40 mg, By Mouth, Daily at bedtime, # 90 tablet, 4 Refills, Maintenance, 09/03/20 20:11:00 EDT, Tablet, [facility] [place], 180, cm, 09/03/20 9:24:00 EDT, Height, 172.7, kg, 08/28/20 4:44:00 EDT, Dry Weight Start Date: 09/03/20 Status: Ordered carvedilol 3.125 mg oral tablet 3.125 mg, 1, tablet, By Mouth, 2 times a day, # 180 tablet, Refills 0, Tot. Refills 0, Maintenance,09/21/20 13:23:00 EDT, Route to Pharmacy Electronically, [facility], Partial fill upon patient request if the prescription is for a sched... Start Date: 09/21/20 Status: Ordered carvedilol 3.125 mg oral tablet 3.125 mg, Tablet, By Mouth, 01/18/21 9:00:00 EDT Start Date: 01/18/21 Stop Date: 01/18/21 Status: Completed clopidogrel 75 mg oral tablet [...] 0 Refills, Maintenance, 09/21/20 13:24:00 EDT, Tablet, [facility], Partial fill upon patient request if the prescription is for a schedule II opioid drug., 1 tablet By Mouth 2 times a day,... Start Date: 09/21/20 Status: Ordered FLUoxetine 20 mg oral capsule 20 mg, 1, capsule, By Mouth, Daily, # 90 capsule, Refills 4, Tot. Refills 4, Maintenance, 09/03/20 20:09:00 EDT, Route to Pharmacy Electronically, [facility], home delivery, 180, cm, 09/03/20 9:24:00 EDT, Height, 172.7, kg, ... Start Date: 09/03/20 Status: Ordered levothyroxine 0.05 mg oral tablet 1 tablet = 50 mcg, By Mouth, Daily, # 90 tablet, 4 Refills, Maintenance, 06/26/20 17:25:00 EST, Tablet, [facility], [place], 180, cm, 06/26/20 14:13:00 EST, Height, 181.6, kg, 03/27/20 14:58:00 EST, Dry Weight Start Date: 06/26/20 Status: Ordered nortriptyline 10 mg oral capsule 10 mg, 1, capsule, By Mouth, Daily, # 90 capsule, Refills 3, Tot. Refills 3, Maintenance, 09/03/20 20:09:00 EDT, Route to Pharmacy Electronically, [facility], 180, cm, 09/03/20 9:24:00 EDT, Height, [...] EST, Route to Pharmacy Electronically, [facility] [place], home delivery, 180, cm, 06/26/20 14:13:00 EST, Height, 181.6, kg, 03/27/20... Start Date: 06/26/20 Status: Ordered torsemide 20 mg oral tablet 1 tablet = 20 mg, By Mouth, Daily, # 90 tablet, 0 Refills, Maintenance, 09/21/20 13:23:00 EDT, Tablet, [facility], Partial fill upon patient request if the prescription is for a schedule II opioid drug., 180, cm, 09/03/20 9:24:00 EDT, He... Start Date: 09/21/20 Status: Ordered Problem List Condition Effective Dates [...] consistent with a cyst on CT at [facility] 04/2019(Confirmed) 04/2019 Active Coronary artery [...] Morbid obesity(Confirmed) Active Obstructive sleep apnea(Confirmed) Active .Banjo Repair Person: Zoltan Diaz [phone], [facility], [facility]. CPP(Confirmed) Active Post traumatic stress disord er (PTSD)(Confirmed) 1999 Active 1-Seen in CT scan of the abdomen done at [facility] on 08-08-16 Results Radiology Reports * Exam Date Time Procedure Performing Provider Status 01/14/21 4:15 AM Chest Portable Ashwini Stuart; Auth (V erified) Notes: (Chest Portable) Reason For Exam: Chest Pain;Other: RESULT: Chest Portable Chest Portable Hx of Present Illness: SOB and chest pain; Reason: Other:; Chest Pain; Clinical Question(s): Other: COMPARISON: Multiple priors, most recent 10/04/2020. FINDINGS: LINES AND TUBES: None. LUNGS AND PLEURA: Mild perihilar vascular prominence bilaterally. No pleural effusion on the right. Possible small left pleural effusion on the left cannot be ruled out on this study. No pneumothorax. HEART, MEDIASTINUM AND CAROLA: Mild to moderate prominence of the cardiac silhouette, unchanged. Normal upper mediastinal and hilar contour. BONES AND SOFT TISSUES: No acute abnormality. IMPRESSION: Mild perihilar vascular prominence and mild to moderate prominence of the cardiac silhouette, most likely represent pulmonary edema secondary to underlying CHF. These findings have not significantly changed since prior study and are most likely chronic. I have personally reviewed the images and I agree with this report. WSN: [id number] Ordering Physician: Nik Ortiz Dictated By: Corby Hancock DO Dictated Date/Time: 01/14/21 9:55 am Reviewed By: José Fritz MD, V Signed By: José Fritz MD, V Signed Date/Time: 01/14/21 10:00 am Transcribed By: SHANNA Transcribed Date/Time: 01/14/21 9:52 am Vital Signs Most recent to oldest [Reference Range]: 1 2 3 Height 180 cm (01/18/21 7:56 AM) 180 cm (01/18/21 7:55 AM) 180 cm (01/18/21 2:00 AM) Weight 180.3 kg (01/18/21 7:55 AM) 180.3 kg (01/18/21 7:55 AM) 181 kg (01/18/21 7:24 AM) Oxygen Saturation [94-100 %] 84 % *L* (01/18/21 7:56 AM) 97 % (01/18/21 7:55 AM) 95 % (01/18/21 2:00 AM) Pulse Rate [55-90 bpm] 70 bpm (01/18/21 8:04 AM) 70 bpm (01/18/21 7:55 AM) 61 bpm (01/18/21 2:00 AM) Body Mass Index [18.5-24.99] 55.65 *>HHI* (01/18/21 7:55 AM) 56.3 *>HHI* (01/15/21 7:22 PM) 56.3 *>HHI* (01/15/21 7:10 PM) Blood Pressure [90-138/55-84 mm Hg] 112/90mm Hg (01/18/21 8:04 AM) 112/90mm Hg (01/18/21 7:55 AM) 100/61mm Hg (01/18/21 2:00 AM) Respiratory Rate [16-30 br/min] 20 br/min (01/18/21 7:55 AM) 20 br/min (01/18/21 2:00 AM) 20 br/min (01/17/21 9:00 PM) Temperature [96.8-100.4 DegF] 97.4 DegF (01/18/21 7:55 AM) 98.2 DegF (01/18/21 2:00 AM) 98.2 DegF (01/17/21 9:00 PM) Liters per Minute 5 L/min (01/17/21 4:00 AM) 5 L/min (01/16/21 11:00 PM) 3 L/min (01/16/21 9:00 PM) Mode of Delivery (Oxygen) Room air 1 (01/18/21 7:56 AM) Room air 2 (01/18/21 7:55 AM) Room air (01/18/21 2:00 AM) Blood pressure sites Arm, left (01/18/21 7:55 AM) Arm, left (01/18/21 2:00 AM) Arm, left (01/17/21 9:00 PM) Temperature Route Temporal (01/18/21 7:55 AM) Temporal (01/18/21 2:00 AM) Temporal (01/17/21 9:00 PM) Dry Weight 182.4 kg (01/15/21 7:10 PM) 164 kg (01/15/21 5:39 PM) 164 kg (01/15/21 5:08 PM) Weight Obtained Via Standing scale (01/18/21 7:55 AM) Standing scale (01/18/21 7:55 AM) Standing scale (01/17/21 12:45 PM) Dry Weight Obtained Via Bed scale (01/15/21 7:10 PM) 1Result Comment: sleeping, apneic 2Result Comment: while awake Social History Social History Type Response Smoking Status 10 or more cigarette s (1/2 pack or more)/day in last 30 days; Other: [id number]; entered on: 09/03/20 Sex
--- OUTSIDE RECORDS SUMMARY | 2023-01-21 | XMS_ITS | Continuity of Care Document ---
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 Name Role Phone Preet Sofia MD Primary Care Physician Encounter [facility] [place] Date(s): 10/18/22 - 10/19/[address] [address]- Discharge Disposition: A-D/C Home Attending Physician: Main Diaz MD Admitting Physician: Main Diaz MD Referring Physician: Not on Staff, Referring [...] Refills, Maintenance, 10/19/22 20:02:00 EDT, Tablet, [facility]/pharmacy #[id number], 180, cm, 10/19/22 4:49:00 [...] 20:05:00 EDT, Route to Pharmacy Electronically, [facility]/pharmacy #[id number], 180, cm, 10/19/22 4:49:00 EDT, Height, 181, kg, 09/26/22 14:48:00 EDT, Dry W... Start Date: 10/19/22 Status: Ordered Dilaudid 2 mg oral tablet 1 tablet = 2 mg, By Mouth, Every 4 hours, PRN Pain , Severe, for 5 days, during day, # 20 tablet, 0Refills, Acute 10/24/22 20:18:00 EDT, 10/19/22 20:18:00 EDT, Tablet, [facility]/pharmacy #[id number], Partial fill upon patient request if the prescription is for a... Start Date: 10/19/22 Stop Date: 10/24/22 Status: Ordered duloxetine 30 mg oral enteric coated capsule 1 capsule = 30 mg, By Mouth, Daily at bedtime, # 30 capsule, 1 Refills, Maintenance, 10/12/22 12:25:00 EDT, Capsule, [facility], Partial fill upon patient request if the prescription isfor a schedule II opioid drug., 180, cm, 10/12/22 1... Start Date: 10/12/22 Stop Date: 12/11/22 Status: Ordered Entresto 24 mg-26 mg oral tablet 1 tablet, By Mouth, 2 times a day, # 60 tablet, 5 Refills, Maintenance, 10/19/22 20:09:00 EDT, Tablet, [facility]/pharmacy #[id number], 1 tablet By Mouth 2 times a day, 180, cm, 10/19/22 4:49:00 EDT, Height, 181,kg, 09/26/22 14:48:00 EDT, Dry Weight Start Date: 10/19/22 Status: Ordered Hospital Bed See Instructions, # 1 each, Maintenance, semi-electric adjustable hospital bed , HOB elevated >30degr most of time. Duration: 2 yrs. Dx: I50.22, 10/12/22 17:37:00 EDT, Compound Start Date: 10/12/22 Status: Ordered HYDROmorphone 2 mg oral tablet 2 mg, Tablet, By Mouth, Once, PRN for Pain , Severe, Routine, 10/19/22 15:00:00 EDT Start Date: 10/19/22 Stop Date: 10/19/22 Status: Completed levothyroxine 0.2 mg oral tablet 1 tablet = 200 mcg, By Mouth, Daily, # 90 tablet, 3 Refills, Maintenance, 10/19/22 20:06:00 EDT, Tablet, [facility]/pharmacy #[id number], 180, cm, 10/19/22 4:49:00 [...] Refills, Maintenance, 10/19/22 20:08:00 EDT, REC Powder, [facility]/pharmacy #[id number], 17 Gm By Mouth Daily,PRN:Constipation,Instr:dissolve in water before taking, 180, cm,... Start Date: 10/19/22 Status: Ordered nitroglycerin 0.4 mg sublingual tablet 1 tablet = 0.4 mg, Sublingual, Every 5 minutes, PRN Chest Pain, # 100 tablet, 0 Refills, Maintenance, 06/09/21 12:34:00 EST, Tablet, [facility], Partial fill upon [...] 20:09:00 EDT, Route to Pharmacy Electronically, [facility]/pharmacy #[id number], 180, cm, 10/19/22 4:49:00 [...] consistent with a cyst on CT at [facility] 04/2019 Confirmed 04/2019 Active Coronary [...] Confirmed Active Obstructive sleep apnea Confirmed Active .Gyro Compass Tester: Lucita Segal [phone], [facility]. CPP Confirmed Active Post traumatic stress disorder (PTSD) Confirmed 1999 Active Severe obesity Confirmed Active 1-Seen in CT scan of the abdomen done at [facility] on 08-08-16 Vital Signs Most recent to oldest [Reference Range]: 1 2 3 Height 180 cm (10/19/22 4:49 AM) 180 cm (10/18/22 9:27 PM) 180 cm (10/18/22 9:01 PM) Weight 160 kg (10/19/22 4:49 AM) 160 kg (10/18/22 9:27 PM) 160 kg (10/18/22 9:01 PM) Oxygen Saturation [94-100 %] 97 % (10/19/22 3:11 PM) 97 % (10/19/22 10:53 AM) 95 % (10/19/22 4:49 AM) Pulse Rate [55-90 bpm] 70 bpm (10/19/22 3:11 PM) 76 bpm (10/19/22 10:53 AM) 69 bpm (10/19/22 4:49 AM) Body Mass Index [18.5-24.99 kg/m2] 49.38 kg/m2 *>HHI* (10/19/22 4:49 AM) 49.38 kg/m2 *>HHI* (10/18/22 9:01 PM) Blood Pressure [90-138/55-84 mm Hg] 141/90mm Hg *H* (10/19/22 3:11 PM) 157/96mm Hg *H* (10/19/22 10:53 AM) 130/87mm Hg (10/19/22 4:49 AM) Respiratory Rate [16-30 br/min] 18 br/min (10/19/22 3:12 PM) 18 br/min (10/19/22 3:11 PM) 20 br/min (10/19/22 10:53 AM) Temperature [96.8-100.4 DegF] 98.1 DegF (10/19/22 3:11 PM) 97.7 DegF (10/19/22 10:53 AM) 97.2 DegF (10/19/22 4:49 AM) Mode of Delivery (Oxygen) Room air (10/19/22 3:11 PM) Room air (10/19/22 10:53 AM) Room air (10/19/22 4:49 AM) Blood pressure sites Arm, left (10/19/22 3:11 PM) Arm, left (10/19/22 10:53 AM) Arm, right (10/19/22 4:49 AM) Temperature Route Oral (10/19/22 3:11 PM) Oral (10/19/22 10:53 AM) Oral (10/19/22 4:49 AM) Weight Obtained Via Patient/family state d (10/18/22 9:01 PM) Social History Social History Type Response Smoking Status 10 or more cigarette s (1/2 pack or more)/day in last 30 days; Interested in cessation: No; Patient wants NRT during admission No entered on: 06/03/21 Sex Male Patient Care team information Care Team Personnel Name: Brenda Vanegas RN Position: [facility] RN Member Role: Primary Care Nurse Name: Renae Rashid RN Position: [facility] RN Member Role: Primary Care Nurse Name: Lizbeth Reardon RN Position: [facility] RN Member Role: Primary Care Nurse Name: Brittny Griffin RN Position: [facility] RN Member Role: Primary Care Nurse Name: Rickey Cruz RN Position: [facility] RN Member Role: Primary Care Nurse Name: Brandee Bee RN Position: [facility] RN Member Role: Primary Care Nurse Name: Janie Gamez RN Position: [facility] RN Member Role: Primary Care Nurse Name: Jing Santiago RN Position: [facility] RN Member Role: Primary Care Nurse Name: Sven Bustos RN Position: [facility] RN Member Role: Primary Care Nurse Name: Sharron Schaefer RN Position: [facility] RN Member Role: Primary Care Nurse Name: Franca Luis LPN Position: [facility] RN Member Role: Primary Care Nurse Name: Sheryl Linda RN Position: [facility] RN Member Role: Primary Care Nurse Name: Zara Aldridge RN Position: [facility] RN Member Role: Primary Care Nurse Name: Preet Sofia MD Position: [facility] Physician - Primary Care Member Role: PCP Address: Address: [address] [place] [address] Name: Betsey Harvey RN Position: [facility] RN Member Role: Primary Care Nurse Name: Camila Cervantes RN Position: [facility] RN Member Role: Primary Care Nurse Name: Aruna Warren RN Position: [facility] RN Member Role: Primary Care Nurse Name: Naomi Kyle RN Position: [facility] RN Member Role: Primary Care Nurse Name: Pavan Espinoza RN Position: [facility] RN Member Role: Primary Care Nurse Name: Lynne Shah RN Position: [facility] RN Member Role: Primary Care Nurse Name: Naomi Mcadams RN Position: [facility] RN Member Role: Primary Care Nurse Name: Ashwini Larson RN Position: [facility] SN RN Member Role: Primary Care Nurse Name: Darren Ortega RN Position: [facility] RN Member Role: Primary Care Nurse Name: Lorraine Good RN Position: [facility] RN Member Role: Primary Care Nurse Name: Mohan Quijano RN Position: [facility] RN Member Role: Primary Care Nurse Name: Shaina Nagy RN Position: [facility] RN Member Role: Primary Care Nurse Name: Sarah Gordon RN Position: [facility] Onco RN Member Role: Primary Care Nurse Name: Catalina Cook RN Position: [facility] RN Member Role: Primary Care Nurse Name: Sweta Lang RN Position: [facility] RN Member Role: Primary Care Nurse Name: Kely Morton RN Position: [facility] RN Member Role: Primary Care Nurse Name: Kristen Mayo RN Position: [facility] ED RN W/OE and Tasks Member Role: Patient Care Provider Name: Nani Dai DO Position: [facility] Resident Member Role: ED Resident Address: Address: [address] [place] [address] [place] [address]- [place] Name: Main Diaz MD Position: [facility] ED Medicine MD Member Role: Admitting Physician Address: Address: [address] [place] [id number]- [place] Name: Gardenia Daugherty Position: [facility] ED TA [facility] Care Team Related Persons Name: DIAN RODGERS Address: [place] [address] Name: KT LANDEROS Address: [place] [address] Name: TAE QUIROZ Address: home [place] [id number]
--- OUTSIDE RECORDS SUMMARY | 2023-01-21 | XMS_ITS | Continuity of Care Document ---
Author Name Unknown Organization [facility] Address [address] [place] [place] [id number]- Care Team Providers Care Bill Recapitulation Clerk Name Role Phone Preet Sofia MD Primary Care Physician Encounter [facility] Date(s): 01/18/23 - 01/18/[address] [address]- Encounter Diagnosis Shortness of breath(Final) - 01/18/23 Discharge Disposition: A-D/C Home Attending Physician: Zain Antony MD Admitting Physician: Zain Antony MD Referring Physician: Not on Staff, Referring [...] Vaccine 4 02/27/10 Recorded 1Location History: [facility] 2Location History: [facility] 3Location History: [facility] 4Location History: [facility] Medications aspirin 81 mg oral delayed release tablet 1 tablet = 81 mg, By Mouth, Daily, # 90 tablet, 3 Refills, Maintenance, 12/10/22 1:31:00 EDT, CR Tablet, [facility]/pharmacy #[id number], 178, cm, 11/22/22 18:01:00 EDT, Height, 164.9, kg, 11/18/22 18:49:00 EDT, Dry Weight Start Date: 12/10/22 Status: Ordered atorvastatin 80 mg oral tablet 1 tablet = 80 mg, By Mouth, Daily, # 30 tablet, 11 Refills, Maintenance, 12/22/22 14:06:00 EDT, Tablet, [facility]/pharmacy #[id number], 178, cm, 11/22/22 18:01:00 EDT, [...] 12/22/22 14:14:00 EDT, Route to Pharmacy Electronically, [facility]/pharmacy #[id number], 178, cm, 11/22/22 18:01:00 EDT, Height, 164.9, kg, 11/18/22 18:49:00 EDT, Start Date: 12/22/22 Status: Ordered Dilaudid 2 mg oral tablet See Instructions, PRN Pain , Severe, 1 tablet By Mouth every 4 hours up to 3x/day during daytime asneeded for severe pain. 7 day or more supply., # 21 tablet, 0 Refills, Maintenance, 01/05/23 20:48:00 EDT, Tablet, [facility]/pharmacy #[id number], Partial fill upo... Start Date: 01/05/23 Status: Ordered Dilaudid 2 mg oral tablet 2 mg, Tablet, By Mouth, Every 4 hours, PRN for Pain , Severe, Routine, 01/18/23 5:53:00 EDT Start Date: 01/18/23 Stop Date: 01/19/23 Status: Discontinued duloxetine 30 mg oral enteric coated capsule 1 capsule = 30 mg, By Mouth, Daily at bedtime, # 30 capsule, 5 Refills, Maintenance, 01/21/23 14:06:00 EDT, Capsule, [facility]/pharmacy #[id number], Partial fill upon patient request if the prescription is for aschedule II opioid drug., 178, cm, 11/22/22 18:01:0... Start Date: 01/21/23 Stop Date: 07/20/23 Status: Ordered Eliquis 5 mg oral tablet 1 tablet = 5 mg, By Mouth, 2 times a day, # 60 tablet, 5 Refills, Maintenance, 12/10/22 1:31:00 EDT, Tablet, [facility]/pharmacy #[id number], Partial fill upon patient request if the prescription is for a schedule II opioid drug., 178, cm, 11/22/22 18:01:00 EDT, H... Start Date: 12/10/22 Status: Ordered Entresto 24 mg-26 mg oral tablet 1 tablet, By Mouth, 2 times a day, # 60 tablet, 5 Refills, Maintenance, 12/22/22 14:07:00 EDT, Tablet, [facility]/pharmacy #[id number], 1 tablet By Mouth 2 times a day,x30 days, 178, cm, 11/22/22 18:01:00 EDT, Height, 164.9, kg, 11/18/22 18:49:00 EDT, Dry Weight Start Date: 12/22/22 Stop Date: 06/20/23 Status: Ordered levothyroxine 0.2 mg oral tablet 1 tablet = 200 mcg, By Mouth, Daily, # 30 tablet, 11 Refills, Maintenance, 03/22/23 14:07:00 EST, Tablet, [facility]/pharmacy #[id number], 178, cm, 11/22/22 18:01:00 EDT, [...] Refills, Maintenance, 10/19/22 20:08:00 EDT, REC Powder, [facility]/pharmacy #[id number], 17 Gm By Mouth Daily,PRN:Constipation,Instr:dissolve in water before taking, 180, cm,... Start Date: 10/19/22 Status: Ordered nitroglycerin 0.4 mg sublingual tablet 1 tablet = 0.4 mg, Sublingual, Every 5 minutes, PRN Chest Pain, # 100 tablet, 0 Refills, Maintenance, 06/09/21 12:34:00 EST, Tablet, [facility], Partial fill upon [...] 14:06:00 EDT, Aerosol, Route to Pharmacy Electronically, [id number]... Start Date: 11/22/22 Status: Ordered torsemide 20 mg oral tablet 1 tablet = 20 mg, By Mouth, 2 times a day, # 60 tablet, 5 Refills, Maintenance, 12/22/22 14:08:00 EDT, Tablet, [facility]/pharmacy #[id number], 178, cm, 11/22/22 18:01:00 EDT, [...] consistent with a cyst on CT at [facility] 04/2019 Confirmed 04/2019 Active Coronary [...] Confirmed Active Obstructive sleep apnea Confirmed Active .Pr Intern: Lucita Segal [phone], [facility]. CPP Confirmed Active Post traumatic stress disorder (PTSD) Confirmed 1999 Active Pulmonary embolus most branches of R lung, Dx at [place], [place] on 11/28/22. L popliteal & peroneal DVT 11/18/22 Confirmed Active Severe obesity Confirmed Active 1-Seen in CT scan of the abdomen done at [facility] on 08-08-16 Results Radiology Reports * Exam Date Time Procedure Performing Provider Status 01/18/23 6:00 AM Chest Portable Bill Cardona (Verified) Notes: (Chest Portable) Reason For Exam: Shortness of Breath RESULT: Chest Portable Examination: Portable chest performed on 01/18/2023. History: Shortness of breath. Findings: A frontal view of the chest is compared to a prior study dated 01/12/2023. The cardiac silhouette is enlarged. Low lung volumes are noted with bibasilar airspace opacities. No definite pleural effusions are present. The osseous structures are unremarkable. IMPRESSION: Low lung volumes with bibasilar opacities which may represent atelectasis. WSN: [id number] Ordering Physician: Annalisa Harrington Dictated By: Delaney Baer MD Dictated Date/Time: 01/18/23 7:34 am Reviewed By: Delaney Baer MD Signed By: Delaney Baer MD Signed Date/Time: 01/18/23 7:34 am Transcribed By: SHANNA Transcribed Date/Time: 01/18/23 7:32 am Vital Signs Most recent to oldest [Reference Range]: 1 2 3 Oxygen Saturation [94-100 %] 95 % (01/18/23 2:23 PM) 96 % (01/18/23 11:15 AM) 96 % (01/18/23 7:52 AM) Pulse Rate [55-90 bpm] 78 bpm (01/18/23 2:23 PM) 76 bpm (01/18/23 11:15 AM) 78 bpm (01/18/23 7:52 AM) Blood Pressure [90-138/55-84 mm Hg] 176/83mm Hg *H* (01/18/23 2:23 PM) 145/78mm Hg *H* (01/18/23 11:15 AM) 125/77mm Hg (01/18/23 7:52 AM) Respiratory Rate [16-30 br/min] 20 br/min (01/18/23 2:23 PM) 18 br/min (01/18/23 11:15 AM) 16 br/min (01/18/23 7:52 AM) Temperature [96.8-100.4 DegF] 97.8 DegF (01/18/23 7:52 AM) Liters per Minute 4 L/min (01/18/23 11:15 AM) 4 L/min (01/18/23 7:52 AM) 4 L/min (01/18/23 5:47 AM) Mode of Delivery (Oxygen) Room air (01/18/23 2:23 PM) Nasal cannula (01/18/23 11:15 AM) Nasal cannula (01/18/23 7:52 AM) Blood pressure sites Arm, left (01/18/23 2:23 PM) Arm, left (01/18/23 11:15 AM) Arm, left (01/18/23 7:52 AM) Temperature Route Oral (01/18/23 7:52 AM) Social History Social History Type Response [...] BPM Atrial Rate: 73 BPM P-R Interval: 178 ms QRS Duration: 118 ms Q-T Interval: 428 ms QTC Calculation(Bazett): 471 ms P Perham: 3 degrees R Perham: -43 degrees T Perham: 33 degrees Poor data quality, interpretation may be adversely affected Normal sinus rhythm Left axis deviation Left ventricular hypertrophy with QRS widening ( R in aVL , [place] product ) Cannot rule out Septal infarct (cited on or before 07-JAN-2023) Possible Lateral infarct (cited on or before 07-JAN-2023) Abnormal ECG When compared with ECG of 12-JAN-2023 06:04, Serial changes of Septal infarct Present Serial changes of Lateral infarct Present Confirmed by ARSLAN FLOWERS ([id number]) on 01/18/2023 7:25:35 AM [place]: ARSLAN FLOWERS Patient Care team information Care [...] Care Nurse Name: Zara Aldridge RN Position: [facility] RN Member Role: Primary Care Nurse Name: Preet Sofia MD Position: [facility] Physician - Primary Care Member Role: PCP Address: Address: [address] [place] [address]- [place] Name: Aicha Romannda Position: [facility] RN Member Role: Primary Care Nurse Name: Betsey Harvey RN Position: [facility] RN Member Role: Primary Care Nurse Name: Camila Cervantes RN Position: [facility] RN Member Role: Primary Care Nurse Name: Aleyda Hernandez RN Position: [facility] RN Member Role: Primary Care Nurse Name: Aruna Warren RN Position: [facility] RN Member Role: Primary Care Nurse Name: Naomi Kyle RN Position: [facility] RN Member Role: Primary Care Nurse Name: Pavan Espinoza RN Position: [facility] RN Member Role: Primary Care Nurse Name: Lynne Shah RN Position: [facility] RN Member Role: Primary Care Nurse Name: Naomi Mcadams RN Position: [facility] RN Member Role: Primary Care Nurse Name: Ashwini Larson RN Position: [facility] SN RN Member Role: Primary Care Nurse Name: Lorraine Good RN Position: [facility] RN Member Role: Primary Care Nurse Name: Mohan Quijano RN Position: [facility] RN Member Role: Primary Care Nurse Name: Shaina Nagy RN Position: [facility] RN Member Role: Primary Care Nurse Name: Sarah Gordon RN Position: [facility] Onco RN Member Role: Primary Care Nurse Name: Catalina Cook RN Position: [facility] RN Member Role: Primary Care Nurse Name: Yun Wadsworth RN Position: [facility] RN Member Role: Primary Care Nurse Name: Sweta Lang RN Position: [facility] RN Member Role: Primary Care Nurse Name: Kely Morton RN Position: [facility] RN Member Role: Primary Care Nurse Name: Zain Antony MD Position: [facility] ED Medicine MD Member Role: Admitting Physician Address: Address: [address] [facility] [place] [address]- [place] Name: Corrie Best Position: [facility] ED RN W/OE and Tasks Member Role: Patient Care Provider Name: Gia Palmer MD Position: [facility] Resident Member Role: ED Resident Address: Address: [address] [place] [address] [place] [address]- Care Team Related Persons Name: DIAN RODGERS Address: [place] [address] Name: KT LANDEROS Address: [place] [address] Name: TAE QUIROZ Address: [place] [id number]
--- OUTSIDE RECORDS SUMMARY | 2023-01-21 | XMS_ITS | Continuity of Care Document ---
Author Name Unknown Organization [facility] Address [address] [place] [address]- Care Team Providers Care Lien Searcher Name Role Phone Preet Sofia MD Primary Care Physician [phone] Encounter [facility] Date(s): 12/01/22 - 12/31/22 [facility] [address]- [place] Allergies, Adverse Reactions, Alerts No Known [...] 3Location History: [facility] 4Location History: [facility] Medications aspirin [...] 12/22/22 14:14:00 EDT, Route to Pharmacy Electronically, [facility]/pharmacy #[id number], 178, cm, 11/22/22 18:01:00 EDT, Height, 164.9, kg, 11/18/22 18:49:00 EDT, Start Date: 12/22/22 Status: Ordered duloxetine 30 mg oral enteric coated capsule 1 capsule = 30 mg, By Mouth, Daily at bedtime, # 30 capsule, 5 Refills, Maintenance, 01/21/23 14:06:00 EDT, Capsule, [facility]/pharmacy #[id number], Partial fill upon patient request if [...] Refills, Maintenance, 10/19/22 20:08:00 EDT, REC Powder, [facility]/pharmacy #[id number], 17 Gm By Mouth Daily,PRN:Constipation,Instr:dissolve in water before taking, 180, cm,... Start Date: 10/19/22 Status: Ordered Miscellaneous Rx 0 Refills, Maintenance, [facility]C, 12/21/22 17:28:00 EDT Start Date: 12/21/22 Status: Ordered nitroglycerin 0.4 mg sublingual tablet 1 tablet = 0.4 mg, Sublingual, Every 5 minutes, PRN Chest Pain, # 100 tablet, 0 Refills, Maintenance, 06/09/21 12:34:00 EST, Tablet, [facility], Partial fill upon [...] 14:06:00 EDT, Aerosol, Route to Pharmacy Electronically, [id number]... Start Date: 11/22/22 Status: Ordered torsemide 20 [...] consistent with a cyst on CT at [facility] 04/2019 Confirmed 04/2019 Active Coronary [...] Confirmed Active Obstructive sleep apnea Confirmed Active .Ssis Developer: Lucita Segal [phone], [facility]. CPP Confirmed Active Post traumatic stress disorder (PTSD) Confirmed 1999 Active Pulmonary embolus most branches of R lung, Dx at [place], [place] on 11/28/22. L popliteal & peroneal DVT 11/18/22 Confirmed Active Severe obesity Confirmed Active 1-Seen in CT scan of the abdomen done at [facility] on 08-08-16 Social History Social History Type Response Smoking Status 10 or more cigarette s (1/2 pack or more)/day in last 30 days; Interested in cessation: No; Patient wants NRT during admission No entered on: 06/03/21 Sex Patient Care team information Care Team Personnel Name: AlBrenda lockett RN Position: [facility] RN Member Role: Primary Care Nurse Name: Renae Rashid RN Position: [facility] RN Member Role: Primary Care Nurse Name: Lizbeth Reardon RN Position: [facility] RN Member Role: Primary Care Nurse Name: Brittny Griffin RN Position: [facility] RN Member Role: Primary Care Nurse Name: Phill Michelle Position: [facility] RN Supv Member Role: Primary Care Nurse Name: Rickey Cruz RN Position: [facility] RN Member Role: Primary Care Nurse Name: Brandee Bee RN Position: [facility] RN Member Role: Primary Care Nurse Name: Janie Gamez RN Position: [facility] RN Member Role: Primary Care Nurse Name: Toby Trotter RN Position: [facility] RN Supv Member Role: Primary Care Nurse Name: Jing Santiago RN Position: [facility] RN Member Role: Primary Care Nurse Name: Sven Bustos RN Position: [facility] RN Member Role: Primary Care Nurse Name: Sharron Schaefer RN Position: [facility] RN Member Role: Primary Care Nurse Name: Franca Luis LPN Position: [facility] RN Member Role: Primary Care Nurse Name: Sheryl Linda RN Position: [facility] RN Member Role: Primary Care Nurse Name: Zara Aldridge RN Position: [facility] RN Member Role: Primary Care Nurse Name: Preet Sofia MD Position: [facility] Physician - Primary Care Member Role: PCP Address: Address: [address] [place] [address] Name: Nanci Roman Position: [facility] RN Member Role: Primary Care Nurse Name: Betsey Harvey RN Position: [facility] RN Member Role: Primary Care Nurse Name: Camila Cervantes RN Position: [facility] RN Member Role: Primary Care Nurse Name: Aruna Warren RN Position: [facility] RN Member Role: Primary Care Nurse Name: Naomi Kyle RN Position: [facility] RN Member Role: Primary Care Nurse Name: Pavan Espinoza RN Position: [facility] RN Member Role: Primary Care Nurse Name: Lynne Shah RN Position: [facility] RN Member Role: Primary Care Nurse Name: Ashwini Larson RN Position: [facility] SN RN Member Role: Primary Care Nurse Name: Lorraine Good RN Position: [facility] RN Member Role: Primary Care Nurse Name: Mohan Quijano RN Position: S RN Member Role: Primary Care Nurse Name: Shaina Nagy RN Position: S RN Member Role: Primary Care Nurse Name: Sarah Gordon RN Position: [facility] Onco RN Member Role: Primary Care Nurse Name: Catalina Cook RN Position: [facility] RN Member Role: Primary Care Nurse Name: Yun Wadsworth RN Position: [facility] RN Member Role: Primary Care Nurse Name: Sweta Lang RN Position: [facility] RN Member Role: Primary Care Nurse Name: Kely Morton RN Position: [facility] RN Member Role: Primary Care Nurse Care Team Related Persons Name: DIAN RODGERS Address: [place] [address] Name: KT LANDEROS Address: [place] [address] Name: TAE QUIROZ Address: home [facility] [id number]
--- OUTSIDE RECORDS SUMMARY | 2023-01-21 | XMS_ITS | Continuity of Care Document ---
Author Name Unknown Organization [facility] Address [address] [place] [address]- Care Team Providers Care Senior Graphic Designer Name Role Phone Preet Sofia MD Primary Care Physician Encounter [facility] Date(s): 09/01/20 - 10/01/20 [facility]/[address] [address]- Allergies, Adverse Reactions, Alerts Substance Reaction Severity [...] Patient Refuses 1Location History: [facility] 2Location History: [facility] 3Location History: [facility] 4Location History: [facility] Medications acetaminophen 325 mg oral tablet [...] Maintenance, 09/03/20 20:10:00 EDT,Route to Pharmacy Electronically, [facility], 180, cm, 09/03/20 9:24:00 EDT, Height, 172.7, kg, 08/28/20 4:44:00 EDT, Dry Weight Start Date: 09/03/20 Status: Ordered atorvastatin 40 mg oral tablet 1 tablet = 40 mg, By Mouth, Daily at bedtime, # 90 tablet, 4 Refills, Maintenance, 09/03/20 20:11:00 EDT, Tablet, [facility], 180, cm, 09/03/20 9:24:00 EDT, Height, 172.7, kg, 08/28/20 4:44:00 EDT, Dry Weight Start Date: 09/03/20 Status: Ordered carvedilol 3.125 mg oral tablet 3.125 mg, 1, tablet, By Mouth, 2 times a day, # 180 tablet, Refills 0, Tot. Refills 0, Maintenance,09/21/20 13:23:00 EDT, Route to Pharmacy Electronically, [facility], Partial fill upon patient request if the prescription is for a sched... Start Date: 09/21/20 Status: Ordered clopidogrel 75 mg oral tablet 75 mg, 1, tablet, By Mouth, Daily, # 90 tablet, Refills 3, Tot. Refills 3, Hard Stop 01/17/22 16:10:00 EDT, 01/22/21 16:10:00 EDT, Route to Pharmacy Electronically, [facility]/pharmacy #[id number], home delivery please, 180, cm, 04/08/20 13:32:00 EST, Height, 181.... Start Date: 01/22/21 Stop Date: 01/17/22 Status: Ordered Entresto 24 mg-26 mg oral tablet 1 tablet, By Mouth, 2 times a day, # 180 tablet, 0 Refills, Maintenance, 09/21/20 13:24:00 EDT, Tablet[facility], Partial fill upon patient request if the prescription is for a schedule II opioid drug., 1 tablet By Mouth 2 times a day,... Start Date: 09/21/20 Status: Ordered FLUoxetine 20 mg oral capsule 20 mg, 1, capsule, By Mouth, Daily, # 90 capsule, Refills 4, Tot. Refills 4, Maintenance, 09/03/20 20:09:00 EDT, Route to Pharmacy Electronically, [facility], home delivery, 180, cm, 09/03/20 9:24:00 EDT, Height, 172.7, kg, ... Start Date: 09/03/20 Status: Ordered levothyroxine 0.05 mg oral tablet 1 tablet = 50 mcg, By Mouth, Daily, # 90 tablet, 4 Refills, Maintenance, 06/26/20 17:25:00 EST, Tablet, [facility], home delivery, 180, cm, 06/26/20 14:13:00 [...] 09/03/20 20:09:00 EDT, Route to Pharmacy Electronically, [facility], 180, cm, 09/03/20 9:24:00 EDT, Height, [...] to Pharmacy Electronically, [facility] Tablet, Partial... Start Date: 09/21/20 Stop Date: 10/21/20 Status: Ordered spironolactone 25 mg oral tablet 25 mg, 1, tablet, By Mouth, Daily, # 90 tablet, Refills 3, Tot. Refills 3, Maintenance, 06/26/20 17:25:00 EST, Route to Pharmacy Electronically, [facility], home delivery, 180, cm, 06/26/20 14:13:00 EST, [...] consistent with a cyst on CT at [facility] 04/2019(Confirmed) 04/2019 Active Coronary artery [...] Morbid obesity(Confirmed) Active Obstructive sleep apnea(Confirmed) Active .Grinder Brake Lining: Zoltan Diaz [phone], [facility]. CPP(Confirmed) Active Post traumatic stress disord er (PTSD)(Confirmed) 1999 Active 1-Seen in CT scan of the abdomen done at [facility] on 08-08-16 Social History Social History Type Response Smoking Status 10 or more cigarette s (1/2 pack or more)/day in last 30 days; Other: [id number]; entered on: 09/03/20 Sex
--- OUTSIDE RECORDS SUMMARY | 2023-01-21 | XMS_ITS | Continuity of Care Document ---
Author Name Unknown Organization [facility] Address Unknown Care Team Providers Care Professional Bass Fisherman Name Role Phone Preet Sofia MD Primary Care Physician [phone] Encounter [facility] Date(s): 04/27/21 - 05/27/21 [facility] Allergies, Adverse Reactions, Alerts No Known [...] [place] 4Location History: [facility] Medications aspirin 81 mg oral delayed release [...] 0 Refills, Maintenance, 04/23/21 15:45:00 EST, Tablet, [facility], Partial fill upon patient request [...] consistent with a cyst on CT at [facility] 04/2019(Confirmed) 04/2019 Active Coronary artery [...] Morbid obesity(Confirmed) Active Obstructive sleep apnea(Confirmed) Active .Counter Intelligence Agent: Zoltan Diaz [phone], [facility]. CPP(Confirmed) Active Post traumatic stress disord er (PTSD)(Confirmed) 1999 Active Severe obesity(Confirmed) Active 1-Seen in CT scan of the abdomen done at [facility] on 08-08-16 Social History Social History Type Response Smoking Status 10 or more cigarette s (1/2 pack or more)/day in last 30 days; Other: [id number]; entered on: 09/03/20 Sex
--- OUTSIDE RECORDS SUMMARY | 2023-01-21 | XMS_ITS | Continuity of Care Document ---
Author Name Unknown Organization [facility] y Address [address] [place] [address]- Care Team Providers Care Grip Boss Name Role Phone Preet Sofia MD Primary Care Physician [place] [facility] [place]): 10/30/21 - 02/05/22 [facility] [address] [place] [id number] Attending Physician: Cooper Avalos MD Admitting Physician: Cooper Avalos MD Referring Physician: Preet Sofia MD Allergies, [...] 3Location History: [facility] 4Location History: [facility] Medications aspirin 81 mg oral delayed release [...] 0 Refills, Maintenance, 06/09/21 12:34:00 EST, Tablet, [facility], Partial fill upon patient [...] 11:03:00 EDT, Aerosol, Route to Pharmacy Electronically, [id number]... Start Date: 07/29/21 Status: Ordered torsemide 20 [...] with a cyst on CT at [facility] 04/2019 Confirmed 04/2019 Active Coronary artery [...] Confirmed Active Obstructive sleep apnea Confirmed Active .Technical Sales Manager: Lucita Segal [phone], [facility]. CPP Confirmed Active Post traumatic stress disorder (PTSD) Confirmed 1999 Active Severe obesity Confirmed Active 1-Seen in CT scan of the abdomen done at [facility] on 08-08-16 Social History Social History Type Response Smoking Status 10 or more cigarette s (1/2 pack or more)/day in last 30 days; Interested in cessation: No; Patient wants NRT during admission No entered on: 06/03/21 Sex Patient Care team information Personnel Name: Bismark TORRES, Preet Hall Address: Address: [address] [place] [address]
--- OUTSIDE RECORDS SUMMARY | 2023-01-21 | XMS_ITS | Continuity of Care Document ---
Author Name Unknown Organization [facility] Address [address] [place] [address]- Care Team Providers Care Clinical Psychology Professor Name Role Phone Preet Sofia MD Primary Care Physician Encounter [facility] Date(s): 10/19/22 - 11/18/22 [facility]/[address] [address]- [place] Allergies, Adverse Reactions, Alerts No Known Allergies Immunizations Given and Recorded Vaccine Date Status Refusal Reason SARS-CoV-2 (COVID-19) [id number] vaccine 05/11/21 G iven influenza virus vaccine, [...] Not Given Patient Refuses 1Location History: [facility] 2Location History: [facility] 3Location History: [facility] 4Location History: [facility] Medications aspirin 81 mg oral [...] 3 Refills, Maintenance, 10/19/22 20:02:00 EDT, Tablet, [facility]/pharmacy #[id number], 180, cm, 10/19/22 4:49:00 EDT, [...] 10/19/22 20:05:00 EDT, Route to Pharmacy Electronically, [facility]/pharmacy #[id number], 180, cm, 10/19/22 4:49:00 EDT, Height, 181, kg, 09/26/22 14:48:00 EDT, Dry W... Start Date: 10/19/22 Status: Ordered Dilaudid 2 mg oral tablet See Instructions, PRN Pain , Severe, 1 tablet By Mouth every 4 hours up to 3x/day during daytime asneeded for severe pain. 7 day or more supply., # 21 tablet, 0 Refills, Maintenance, 11/10/22 20:43:00 EDT, Tablet, [facility]/pharmacy #[id number], Partial fill upo... Start Date: 11/10/22 Status: Ordered duloxetine 30 mg oral enteric coated capsule 1 capsule = 30 mg, By Mouth, Daily at bedtime, # 30 capsule, 1 Refills, Maintenance, 10/12/22 12:25:00 EDT, Capsule, [facility], Partial fill upon patient [...] 3 Refills, Maintenance, 10/19/22 20:06:00 EDT, Tablet, [facility]/pharmacy #[id number], 180, cm, 10/19/22 4:49:00 EDT, [...] 0 Refills, Maintenance, 06/09/21 12:34:00 EST, Tablet, [facility], Partial fill upon patient [...] 10/19/22 20:09:00 EDT, Route to Pharmacy Electronically, [facility]/pharmacy #[id number], 180, cm, 10/19/22 4:49:00 EDT, [...] 5 Refills, Maintenance, 10/19/22 20:12:00 EDT, Tablet, [facility]/pharmacy #[id number], 180, cm, 10/19/22 4:49:00 EDT, [...] consistent with a cyst on CT at [facility] 04/2019 Confirmed 04/2019 Active Coronary artery disease, [...] Confirmed Active Obstructive sleep apnea Confirmed Active .Fishing Rod Trimmer: Lucita Segal [phone], [facility]. CPP Confirmed Active Post traumatic stress disorder (PTSD) Confirmed 1999 Active Severe obesity Confirmed Active 1-Seen in CT scan of the abdomen done at [facility] on 08-08-16 Social History Social [...] Primary Care Nurse Name: Phill Michelle Position: [facility] RN Supv Member Role: Primary Care Nurse Name: Rickey Cruz RN Position: [facility] RN Member Role: Primary Care Nurse Name: Brandee Bee RN Position: [facility] RN Member Role: Primary Care Nurse Name: Janie Gamez RN Position: [facility] RN Member Role: Primary Care Nurse Name: Jing Santiago RN Position: [facility] RN Member Role: Primary Care Nurse Name: Sven Bustos RN Position: [facility] RN Member Role: Primary Care Nurse Name: Sharron Schaefer RN Position: [facility] RN Member Role: Primary Care Nurse Name: Franca Luis LPN Position: [facility] RN Member Role: Primary Care Nurse Name: Sheryl Linda RN Position: [facility] RN Member Role: Primary Care Nurse Name: Zara Aldridge RN Position: [facility] RN Member Role: Primary Care Nurse Name: Preet Sofia MD Position: [facility] Physician - Primary Care Member Role: PCP Address: Address: [address] [place] [address] Name: Betsey Harvey RN Position: [facility] RN Member Role: Primary Care Nurse Name: Camila Cervantes RN Position: [facility] RN Member Role: Primary Care Nurse Name: Aruna Warren RN Position: [facility] RN Member Role: Primary Care Nurse Name: Naomi Kyle RN Position: [facility] RN Member Role: Primary Care Nurse Name: Pavan Espinoza RN Position: [facility] RN Member Role: Primary Care Nurse Name: Lynne Shah RN Position: [facility] RN Member Role: Primary Care Nurse Name: Ashwini Larson RN Position: [facility] SN RN Member Role: Primary Care Nurse Name: Darren Ortega RN Position: [facility] RN Member Role: Primary Care Nurse Name: Lorraine Good RN Position: [facility] RN Member Role: Primary Care Nurse Name: Mohan Quijano RN Position: [facility] RN Member Role: Primary Care Nurse Name: Shaina Nagy RN Position: [facility] RN Member Role: Primary Care Nurse Name: Sarah Gordon RN Position: [facility] Onco RN Member Role: Primary Care Nurse Name: Catalina Cook RN Position: [facility] RN Member Role: Primary Care Nurse Name: Sweta Lang RN Position: [facility] RN Member Role: Primary Care Nurse Name: Selene SANDERSON, Kely Eng Position: S RN Member Role: Primary Care Nurse Care Team Related Persons Name: DIAN RODGERS Address: [place] [address] Name: KT LANDEROS Address: [place] [address] Name: TAE QUIROZ Address: [place] [id number]
--- OUTSIDE RECORDS SUMMARY | 2023-01-21 | XMS_ITS | Continuity of Care Document ---
Author Name Unknown Organization [facility] y Address [address] [place] [address]- Care Team Providers Care Front Office Administrator Name Role Phone Preet Sofia MD Primary Care Physician [facility] [facility] Date[place]): 09/24/20 - 11/22/20 [facility] [address] [place] [address] Attending Physician: Sánchez Gross MD Admitting Physician: Sánchez Gross MD Allergies, Adverse Reactions, Alerts Substance Reaction [...] Maintenance, 09/03/20 20:10:00 EDT,Route to Pharmacy Electronically, [facility], 180, cm, 09/03/20 9:24:00 EDT, Height, 172.7, kg, 08/28/20 4:44:00 EDT, Dry Weight Start Date: 09/03/20 Status: Ordered atorvastatin 40 mg oral tablet 1 tablet = 40 mg, By Mouth, Daily at bedtime, # 90 tablet, 4 Refills, Maintenance, 09/03/20 20:11:00 EDT, Tablet, [facility], 180, cm, 09/03/20 9:24:00 EDT, Height, 172.7, kg, 08/28/20 4:44:00 EDT, Dry Weight Start Date: 09/03/20 Status: Ordered carvedilol 3.125 mg oral tablet 3.125 mg, 1, tablet, By Mouth, 2 times a day, # 180 tablet, Refills 0, Tot. Refills 0, Maintenance,09/21/20 13:23:00 EDT, Route to Pharmacy Electronically, [facility] 3, Partial fill upon patient [...] 0 Refills, Maintenance, 09/21/20 13:24:00 EDT, Tablet, [facility] 3, Partial fill upon patient request if the prescription is for a schedule II opioid drug., 1 tablet By Mouth 2 times a day,... Start Date: 09/21/20 Status: Ordered FLUoxetine 20 mg oral capsule 20 mg, 1, capsule, By Mouth, Daily, # 90 capsule, Refills 4, Tot. Refills 4, Maintenance, 09/03/20 20:09:00 EDT, Route to Pharmacy Electronically, [facility], home delivery, 180, cm, 09/03/20 9:24:00 EDT, Height, 172.7, kg, ... Start Date: 09/03/20 Status: Ordered levothyroxine 0.05 mg oral tablet 1 tablet = 50 mcg, By Mouth, Daily, # 90 tablet, 4 Refills, Maintenance, 06/26/20 17:25:00 EST, Tablet, [facility], home delivery, 180, cm, 06/26/20 14:13:00 EST, Height, 181.6, kg, 03/27/20 14:58:00 EST, Dry Weight Start Date: 06/26/20 Status: Ordered nortriptyline 10 mg oral capsule 10 mg, 1, capsule, By Mouth, Daily, # 90 capsule, Refills 3, Tot. Refills 3, Maintenance, 09/03/20 20:09:00 EDT, Route to Pharmacy Electronically, [facility], 180, cm, 09/03/20 9:24:00 EDT, Height, [...] 06/26/20 17:25:00 EST, Route to Pharmacy Electronically, [facility], home delivery, 180, cm, 06/26/20 14:13:00 EST, Height, 181.6, kg, 03/27/20... Start Date: 06/26/20 Status: Ordered torsemide 20 mg oral tablet 1 tablet = 20 mg, By Mouth, Daily, # 90 tablet, 0 Refills, Maintenance, 09/21/20 13:23:00 EDT, Tablet, [facility] 3, Partial fill upon patient [...] consistent with a cyst on CT at [facility] 04/2019(Confirmed) 04/2019 Active Coronary artery [...] Morbid obesity(Confirmed) Active Obstructive sleep apnea(Confirmed) Active .Assisted Living Assistant: Zoltan Diaz [phone], [facility]. CPP(Confirmed) Active Post traumatic stress disord er (PTSD)(Confirmed) 1999 Active 1-Seen in CT scan of the abdomen done at [facility] on 08-08-16 Social History Social History Type Response Smoking Status 10 or more cigarette s (1/2 pack or more)/day in last 30 days; Other: [id number]; entered on: 09/03/20 Sex
--- OUTSIDE RECORDS SUMMARY | 2023-01-21 | XMS_ITS | Continuity of Care Document ---
Author Name Unknown Organization [facility] Address [address] [place] [id number]- Care Team Providers Care Security System Administrator Name Role Phone Preet Sofia MD Primary Care Physician Encounter [facility] Date(s): 09/23/20 - 10/23/20 [facility] [address] [place] [id number]- Allergies, Adverse Reactions, Alerts Substance Reaction Severity [...] Maintenance, 09/03/20 20:10:00 EDT,Route to Pharmacy Electronically, [facility], 180, cm, 09/03/20 9:24:00 EDT, Height, 172.7, kg, 08/28/20 4:44:00 EDT, Dry Weight Start Date: 09/03/20 Status: Ordered atorvastatin 40 mg oral tablet 1 tablet = 40 mg, By Mouth, Daily at bedtime, # 90 tablet, 4 Refills, Maintenance, 09/03/20 20:11:00 EDT, Tablet, [facility], 180, cm, 09/03/20 9:24:00 EDT, Height, 172.7, kg, 08/28/20 4:44:00 EDT, Dry Weight Start Date: 09/03/20 Status: Ordered carvedilol 3.125 mg oral tablet 3.125 mg, 1, tablet, By Mouth, 2 times a day, # 180 tablet, Refills 0, Tot. Refills 0, Maintenance,09/21/20 13:23:00 EDT, Route to Pharmacy Electronically, [facility] 3, Partial fill upon patient request if the prescription is for a sched... Start Date: 09/21/20 Status: Ordered clopidogrel 75 mg oral tablet 75 mg, 1, tablet, By Mouth, Daily, # 90 tablet, Refills 3, Tot. Refills 3, Hard Stop 01/17/22 16:10:00 EDT, 01/22/21 16:10:00 EDT, [id number], 180, cm, 04/08/20 13:32:00 EST, Height, 181.... Start Date: 01/22/21 Stop Date: 01/17/22 Status: Ordered Entresto 24 mg-26 mg oral tablet 1 tablet, By Mouth, 2 times a day, # 180 tablet, 0 Refills, Maintenance, 09/21/20 13:24:00 EDT, Tablet, [facility] 3, Partial fill upon patient request if the prescription is for a schedule II opioid drug., 1 tablet By Mouth 2 times a day,... Start Date: 09/21/20 Status: Ordered FLUoxetine 20 mg oral capsule 20 mg, 1, capsule, By Mouth, Daily, # 90 capsule, Refills 4, Tot. Refills 4, Maintenance, 09/03/20 20:09:00 EDT, Route to Pharmacy Electronically, [facility], home delivery, 180, cm, 09/03/20 9:24:00 EDT, Height, 172.7, kg, ... Start Date: 09/03/20 Status: Ordered levothyroxine 0.05 mg oral tablet 1 tablet = 50 mcg, By Mouth, Daily, # 90 tablet, 4 Refills, Maintenance, 06/26/20 17:25:00 EST, Tablet, [facility], home delivery, 180, cm, 06/26/20 14:13:00 EST, Height, 181.6, kg, 03/27/20 14:58:00 EST, Dry Weight Start Date: 06/26/20 Status: Ordered nortriptyline 10 mg oral capsule 10 mg, 1, capsule, By Mouth, Daily, # 90 capsule, Refills 3, Tot. Refills 3, Maintenance, 09/03/20 20:09:00 EDT, Route to Pharmacy Electronically, [facility], 180, cm, 09/03/20 9:24:00 EDT, Height, 172.7, [...] 06/26/20 17:25:00 EST, Route to Pharmacy Electronically, [facility], home delivery, 180, cm, 06/26/20 14:13:00 EST, Height, 181.6, kg, 03/27/20... Start Date: 06/26/20 Status: Ordered torsemide 20 mg oral tablet 1 tablet = 20 mg, By Mouth, Daily, # 90 tablet, 0 Refills, Maintenance, 09/21/20 13:23:00 EDT, Tablet, [facility] 3, Partial fill upon patient request [...] consistent with a cyst on CT at [facility] 04/2019(Confirmed) 04/2019 Active Coronary artery [...] obesity(Confirmed) Active Obstructive sleep apnea(Confirmed) Active .Director Business Systems: Zoltan Diaz [phone], [facility]. CPP(Confirmed) Active Post traumatic stress disord er (PTSD)(Confirmed) 1999 Active 1-Seen in CT scan of the abdomen done at [facility] on 08-08-16 Social History Social History Type Response Smoking Status 10 or more cigarette s (1/2 pack or more)/day in last 30 days; Other: [id number]; entered on: 09/03/20 Sex
--- OUTSIDE RECORDS SUMMARY | 2023-01-21 | XMS_ITS | Continuity of Care Document ---
Author Name Unknown Organization [facility] Address [address] [place] [address]- Care Team Providers Care Shop Foreman Name Role Phone Preet Sofia MD Primary Care Physician [phone] Encounter [facility] Date(s): 10/31/22 - 10/31/[address] [address]- Encounter Diagnosis Chest pain(Final) - 10/31/22 Shortness of breath(Final) - 10/31/22 Inability to walk(Final) - 10/31/22 Discharge Disposition: A-D/C AMA Attending Physician: Gerald Ji MD Admitting Physician: Gerald Ji MD Referring Physician: Not on Staff, Referring MD Allergies, Adverse Reactions, Alerts No Known Allergies Immunizations Given and Recorded Vaccine Date Status Refusal Reason SARS-CoV-2 (COVID-19) mRNA-2101 vaccine 05/11/21 G iven influenza virus vaccine, [...] History: [facility] 2Location History: [facility] 3Location History: [facility] 4Location History: [facility] Medications aspirin 81 mg oral delayed release tablet 1 tablet = 81 mg, By Mouth, Daily, # 90 tablet, 3 Refills, Maintenance, 10/19/22 20:02:00 EDT, CR Tablet, [facility]/pharmacy #[id number], 180, cm, 10/19/22 4:49:00 EDT, Height, 181, kg, 09/26/22 14:48:00 EDT, Dry Weight Start Date: 10/19/22 Status: Ordered atorvastatin 80 mg oral tablet 1 tablet = 80 mg, By Mouth, Daily, # 90 tablet, 3 Refills, Maintenance, 10/19/22 20:02:00 EDT, Tablet, [facility]/pharmacy #[id number], 180, cm, 10/19/22 4:49:00 [...] 10/19/22 20:05:00 EDT, Route to Pharmacy Electronically, [facility]/pharmacy #[id number], 180, cm, 10/19/22 4:49:00 [...] 1 Refills, Maintenance, 10/12/22 12:25:00 EDT, Capsule, [facility], Partial fill upon patient request if the prescription isfor a schedule II opioid drug., 180, cm, 10/12/22 1... Start Date: 10/12/22 Stop Date: 12/11/22 Status: Ordered Entresto 24 mg-26 mg oral tablet 1 tablet, By Mouth, 2 times a day, # 60 tablet, 5 Refills, Maintenance, 10/19/22 20:09:00 EDT, Tablet, [facility]/pharmacy #[id number], 1 tablet By Mouth 2 times a day, 180, cm, 10/19/22 4:49:00 EDT, Height, 181,kg, 09/26/22 14:48:00 EDT, Dry Weight Start Date: 10/19/22 Status: Ordered FENTanyl Inj 75 mcg, Injection, IV Push Slowly, Once, STAT, 10/31/22 9:08:00 EDT, Stop date 10/31/22 9:08:00 EDT Start Date: 10/31/22 Stop Date: 10/31/22 Status: Completed Hospital Bed See Instructions, # 1 each, Maintenance, semi-electric adjustable hospital bed , HOB elevated >30degr most of time. Duration: 2 yrs. Dx: I50.22, 10/12/22 17:37:00 EDT, Compound Start Date: 10/12/22 Status: Ordered levothyroxine 0.2 mg oral tablet 1 tablet = 200 mcg, By Mouth, Daily, # 90 tablet, 3 Refills, Maintenance, 10/19/22 20:06:00 EDT, Tablet, [facility]/pharmacy #0315, 180, cm, 10/19/22 4:49:00 [...] Refills, Maintenance, 10/19/22 20:08:00 EDT, REC Powder, [facility]/pharmacy #0315, 17 Gm By Mouth Daily,PRN:Constipation,Instr:dissolve in water before taking, 180, cm,... Start Date: 10/19/22 Status: Ordered nitroglycerin 0.4 mg sublingual tablet 1 tablet = 0.4 mg, Sublingual, Every 5 minutes, PRN Chest Pain, # 100 tablet, 0 Refills, Maintenance, 06/09/21 12:34:00 EST, Tablet, [facility], Partial fill upon patient [...] 10/19/22 20:09:00 EDT, Route to Pharmacy Electronically, [facility]/pharmacy #[id number], 180, cm, 10/19/22 4:49:00 [...] 5 Refills, Maintenance, 10/19/22 20:12:00 EDT, Tablet, [facility]/pharmacy #[id number], 180, cm, 10/19/22 4:49:00 EDT, Height, 181, kg, 09/26/22 14:48:00 EDT, Dry Weight Start Date: 10/19/22 Status: Ordered Tylenol Extra Strength 500 mg oral tablet 2 tablet = 1,000 mg, By Mouth, Every 8 hours, PRN Pain , Moderate, # 120 tablet, 5 Refills, Maintenance, 10/19/22 20:00:00 EDT, Tablet, [facility]/pharmacy #0315, 180, cm, 10/19/22 4:49:00 [...] a cyst on CT at [facility] 04/2019 Confirmed 04/2019 Active Coronary artery [...] Confirmed Active Obstructive sleep apnea Confirmed Active .Green Ware Caster: Lucita Segal [phone], [facility]. CPP Confirmed Active Post traumatic stress disorder (PTSD) Confirmed 1999 Active Severe obesity Confirmed Active 1-Seen in CT scan of the abdomen done at [facility] on 08-08-16 Results Radiology Reports * Exam Date Time Procedure Performing Provider Status 10/31/22 9:44 AM Chest Portable Krystian Alejandra; Auth (Ve rified) Notes: (Chest Portable) Reason For Exam: Chest Pain;Other: RESULT: Chest Portable Chest Portable Reason: Other:; Chest Pain; Clinical Question(s): CHF COMPARISON: 09/26/2022. FINDINGS: LINES AND TUBES: None. LUNGS AND PLEURA: Increasing right basilar discoid scarring/atelectasis. Hazy opacity at the left lung base, may be secondary atelectasis, however cannot exclude developing infiltrate. No significant pleural effusion. No pneumothorax. HEART, MEDIASTINUM AND CAROLA: The heart is enlarged. The aorta is uncoiled. BONES AND SOFT TISSUES: No acute abnormality. IMPRESSION: 1. Increasing right basilar discoid scarring/atelectasis. 2. Hazy opacity at the left lung base may reflect atelectasis, however cannot exclude developing infiltrate. 3. Mild cardiomegaly. WSN: [id number] Ordering Physician: Naomi De Dios Dictated By: Maria Del Carmen Dobbs MD Dictated Date/Time: 10/31/22 9:53 am Reviewed By: Maria Del Carmen Dobbs MD Signed By: Maria Del Carmen Dobbs MD Signed Date/Time: 10/31/22 9:53 am Transcribed By: SHANNA Transcribed Date/Time: 10/31/22 9:51 am Vital Signs Most recent to oldest [Reference Range]: 1 2 3 Weight 150 kg (10/31/22 4:38 PM) 150 kg (10/31/22 9:42 AM) Oxygen Saturation [94-100 %] 96 % (10/31/22 4:38 PM) 95 % (10/31/22 12:13 PM) 96 % (10/31/22 9:42 AM) Pulse Rate [55-90 bpm] 88 bpm (10/31/22 4:38 PM) 62 bpm (10/31/22 12:13 PM) 62 bpm (10/31/22 9:42 AM) Blood Pressure [90-138/55-84 mm Hg] 106/83mm Hg (10/31/22 4:38 PM) 103/66mm Hg (10/31/22 12:13 PM) 95/52mm Hg (10/31/22 9:41 AM) Respiratory Rate [16-30 br/min] 22 br/min (10/31/22 4:38 PM) 22 br/min (10/31/22 12:13 PM) 22 br/min (10/31/22 10:49 AM) Temperature [96.8-100.4 DegF] 97.9 DegF (10/31/22 9:42 AM) 97.9 DegF (10/31/22 9:41 AM) Temperature Route Oral (10/31/22 9:42 AM) Oral (10/31/22 9:41 AM) Dry Weight 150 kg (10/31/22 4:38 PM) 150 kg (10/31/22 9:42 AM) Weight Obtained Via Patient/family state d (10/31/22 9:42 AM) Dry Weight Obtained Via Patient/family s tated (10/31/22 9:42 AM) Social History Social History Type Response Smoking Status 10 or more cigarette s (1/2 pack or more)/day in last 30 days; Interested in cessation: No; Patient wants NRT during admission No entered on: 06/03/21 Sex Male Note * Naomi De Dios DO: PERFORM Event Display: Patient Education Leaflets Authored Date: [id number] Physical Therapy Referral ?? 250 ?? This page is FOR PRESCRIBERS Only, ? DO NOT GIVE TO THE PATIENT? Physical Therapy Referral Program for Management of Pain In an effort to reduce narcotic use, some of our ED patients will benefit from a direct referral torehab care.?? [facility] will see INSURED patients and has a system in place to avoid sending follow up paperwork to the ED prescribers.? Note: Non-[facility] physical therapy services will probably NOT be able to handle ED generated PT referrals. ?? Patients should still follow up with their PCP as soon as possible regarding their ongoing care. Inform patients that [facility] will discuss insurance when they call.?? Some insurance plans limit the amount of PT a patient can receive each year. ?? Complete the FIRST PAGE of the patient???s referral sheet. [place] or write in diagnosis Modify the timing for treatment, if needed List any major precautions (i.e.?? Non-weight bearing limb), if needed Sign, date and print your name at the bottom ? Physical Therapy Referral Form Patient Instructions: You are being referred to physical therapy.?? This form is your referral and MUST be brought to your appointment. You need to call to set up your appointment. ?? This form can be used at any [facility] location.?? A list of locations is attached.?? 1)?? DIAGNOSIS/ICD-10 (jena one) Cervicalgia: M54.2 ? Strain of muscle, fascia and tendon at neck level: S16.1XXD? Radiculopathy, cervical region: M54.12? Mid back pain: M54.9 ? Low back pain:?? M54.5 Strain of muscle, fascia and tendon of lower back: S39.012D Radiculopathy, lumbosacral region: M54.17 Other:? 2)? [? ]? Evaluate and Treat 2 Times/Week for 4 weeks as needed [? ]?Other: 3)? [? ]? No Precautions [? ]?Precautions: ?? I hereby certify these services as medically necessary for the patient???s plan of care. Physician???s Signature Date Physician Name (printed)? Locations You can call any location below.?? Tell them you were seen in a [facility] Emergency [facility] and have a referral form.?? Remember to bring your referral form with you to the appointment. SURJIT Valerio [address]? SURJIT [place]ado [address] [address] [facility], [address]? [address] Phone: [phone]? SURJIT [place] [address]? FelixSURJIT [address] [place] [address]? [address] ? [place] [address]? [place] [address]? [address] ? [place] [address]? [place] [address]? [address]? [facility] [place] ? [address] ? * Naomi De Dios DO: PERFORM Event Display: Patient Education Leaflets Authored Date: [id number] Uncertain Causes of Chest Pain ?? [id number] Uncertain Causes of Chest Pain Chest pain [...] ?? Last Reviewed Date: 2021 ?? [employer]. All rights reserved. This information is not intended as a substitute for professional medical care. Always follow your healthcare professional's instructions. ?? * Naomi De Dios DO: PERFORM Event Display: Patient Education Leaflets Authored Date: [id number] Uncertain Causes of Chest Pain ?? [id number] Uncertain Causes of Chest Pain Chest pain [...] leg ?? Last Reviewed Date: 2021 ?? 2680-4880 [employer]. All rights reserved. This information is not intended as a substitute for professional medical care. Always follow your healthcare professional's instructions. ?? Patient Care team information Care Team Personnel Name: Brenda Vanegas RN Position: [facility] RN Member [...] Care Nurse Name: Franca Luis LPN Position: [facility] RN Member Role: Primary Care Nurse Name: Sheryl Linda RN Position: [facility] RN Member Role: Primary Care Nurse Name: Zara Aldridge RN Position: [facility] RN Member Role: Primary Care Nurse Name: Preet Sofia MD Position: [facility] Physician - Primary Care Member Role: PCP Address: Address: [address] [place] [address] Name: Betsey Harvey RN [facility] Care Nurse Name: Naomi Mcadams RN Position: [facility] RN Member Role: Primary Care Nurse Name: Ashwini Larson RN Position: [facility] SN RN Member Role: Primary Care Nurse Name: Darren Ortega RN Position: [facility] RN Member [...] RN Member Role: Primary Care Nurse Name: MarkGeo Hill Attending Position: [facility] ED Medicine MD Name: Sarah Ladd Position: [facility] ED TA [facility] Member Role: Clothing Presser Name: Jessenia Chambers RN Position: [facility] ED RN W/OE and Tasks Member Role: Patient Care Provider Name: Naomi De Dios DO Position: [facility] Resident Member Role: ED Resident Address: Address: [address] [place] [address] [place] [address]- [place] Care Team Related Persons Name: DIAN RODGERS Address: [place] [address] Name: KT LANDEROS Address: [place] [address] Name: TAE QUIROZ Address: home [place] [address]
--- OUTSIDE RECORDS SUMMARY | 2023-01-21 | XMS_ITS | Continuity of Care Document ---
Author Name Unknown Organization [facility] Address Unknown Care Team Providers Care Washer Assembler Name Role Phone Preet Sofia MD Primary Care Physician [place] [facility] [place] 01/12[place]21 - 04/23/21 [facility] Attending Physician: Preet Sofia MD Admitting [...] Patient Refuses 1Location History: [facility] 2Location History: [facility] 3Location History: [facility] 4Location History: [facility] Medications aspirin [...] 05/24/21 15:45:00 EST, 04/23/21 15:45:00 EST, Patch, [facility], Partial fill upon patient request if the prescription is for a schedule II opioid drug., 180, cm, 04/23/21 14:40:00... Start Date: 04/23/21 Stop Date: 05/24/21 Status: Ordered nitroglycerin 0.4 mg sublingual tablet 1 tablet = 0.4 mg, Sublingual, Every 5 minutes, PRN Chest Pain, # 100 tablet, 0 Refills, Maintenance, 04/23/21 15:45:00 EST, Tablet, [facility], Partial [...] 0 Refills, Maintenance, 04/23/21 15:45:00 EST, Tablet, [facility], Partial fill upon patient request if the prescription is for a schedule II opioid drug., 180, cm, 04/23/21 14:40:... Start Date: 04/23/21 Status: Ordered traZODone 50 mg oral tablet 25 mg, 0.5, tablet, By Mouth, Daily at bedtime, # 15 tablet, Refills 0, Tot. Refills 0, Maintenance, 04/23/21 15:45:00 EST, Route to Pharmacy Electronically, [facility], Partial fill upon [...] consistent with a cyst on CT at [facility] 04/2019(Confirmed) 04/2019 Active Coronary artery disease, [...] obesity(Confirmed) Active Obstructive sleep apnea(Confirmed) Active .Commercial Lines Account Assistant: Zoltan Diaz [phone], [facility]. CPP(Confirmed) Active Post traumatic stress disord er (PTSD)(Confirmed) 1999 Active Severe obesity(Confirmed) Active 1-Seen in CT scan of the abdomen done at [facility] on 08-08-16 Social History Social History Type Response Smoking Status 10 or more cigarette s (1/2 pack or more)/day in last 30 days; Other: [id number]; entered on: 09/03/20 Sex
--- OUTSIDE RECORDS SUMMARY | 2023-01-21 00:01 | XMS_ITS | Continuity of Care Document ---
Author Name Unknown Organization [facility] Address [address] [place] [address]- Care Team Providers Care Order Packer Name Role Phone Preet Sofia MD Primary Care Physician [phone] [place] [facility] [place]s): 06/10/21 - 08/22/21 [facility] [address] [place] [address] Attending Physician: Angela Jasmine MD Admitting [...] 0 Refills, Maintenance, 06/09/21 12:34:00 EST, Tablet, [facility], Partial fill [...] 0 Refills, Maintenance, 06/09/21 12:34:00 EST, Cream, [facility], Partial fill [...] 11:03:00 EDT, Aerosol, Route to Pharmacy Electronically, [id number]... Start Date: 07/29/21 Status: Ordered torsemide 20 [...] consistent with a cyst on CT at [facility] 04/2019(Confirmed) 04/2019 Active Coronary [...] Morbid obesity(Confirmed) Active Obstructive sleep apnea(Confirmed) Active .Dance Hall Host/Hostess: Zoltan Diaz [phone], [facility]. CPP(Confirmed) Active Post traumatic stress disord er (PTSD)(Confirmed) 1999 Active Severe obesity(Confirmed) Active 1-Seen in CT scan of the abdomen done at [facility] on 08-08-16 Social History Social History Type Response Smoking Status 10 or more cigarette s (1/2 pack or more)/day in last 30 days; Interested in cessation: No; Patient wants NRT during admission No entered on: 06/03/21 Sex
--- OUTSIDE RECORDS SUMMARY | 2023-01-21 00:01 | XMS_ITS | Continuity of Care Document ---
Author Name Unknown Organization [facility] Address [address] [place] [address]- Care Team Providers Care Quantitative Researcher Name Role Phone Preet Sofia MD Primary Care Physician [place] [facility] 08/07/20 [facility]/[address] [address]- Allergies, Adverse Reactions, Alerts Substance Reaction Severity [...] 4Location History: [facility] Medications ammonium lactate 12% topical cream 1 application, Topically, 2 times a day, for thick dry skin and callous, # 140 Gm, 3 Refills, Maintenance, 06/26/20 17:25:00 EST, Cream, [facility], home delivery, 1 application Topically 2 times a day,Instr:for thick dry skin and... Start Date: 06/26/20 Status: Ordered aspirin 81 mg oral delayed release tablet 81 mg, 1, tablet, By Mouth, Daily, # 90 tablet, Refills 3, Tot. Refills 3, Maintenance, 01/17/22 16:35:00 EDT, Route to Pharmacy Electronically, [facility], home delivery, 180, cm, 06/26/20 14:13:00 EST, Height, 181.6, kg, 03/27/20... Start Date: 01/17/22 Status: Ordered aspirin 81 mg oral delayed release tablet 81 mg, 1, tablet, By Mouth, Daily, # 90 tablet, Refills 3, Tot. Refills 3, Hard Stop 01/17/22 16:35:00 EDT, 01/22/21 16:35:00 EDT, [facility] home [facility] please, 180, cm, 04/08/20 13:32:00 EST, Height, 181.... Start Date: 01/22/21 Stop Date: 01/17/22 Status: Ordered aspirin 81 mg oral delayed release tablet 81 mg, 1, tablet, By Mouth, Daily, for 30 days, # 30 tablet, Refills 11, Tot. Refills 11, Hard Stop01/22/21 16:35:00 EDT, 01/28/20 16:35:00 EDT, Route to Pharmacy Electronically, [facility], 180.3, cm, 01/28/20 12:32:00 EDT, Height, 168... Start Date: 01/28/20 Stop Date: 01/22/21 Status: Ordered atorvastatin 40 mg oral tablet 1 tablet = 40 mg, By Mouth, Daily at bedtime, # 90 tablet, 3 Refills, Maintenance, 06/26/20 17:25:00 EST, Tablet, [facility], home delivery, 180, cm, 06/26/20 14:13:00 EST, Height, 181.6, kg, 03/27/20 14:58:00 EST, Dry Weight Start Date: 06/26/20 Status: Ordered clopidogrel 75 mg oral tablet 75 mg, 1, tablet, By Mouth, Daily, # 90 tablet, Refills 3, Tot. Refills 3, Maintenance, 01/17/22 16:10:00 EDT, Route to Pharmacy Electronically, [facility], home delivery, 180, cm, 06/26/20 14:13:00 EST, Height, 181.6, kg, 03/27/20... Start Date: 01/17/22 Status: Ordered clopidogrel 75 mg oral tablet 75 mg, 1, tablet, By Mouth, Daily, # 90 tablet, Refills 3, Tot. Refills 3, Hard Stop 01/17/22 16:10:00 EDT, 01/22/21 16:10:00 EDT, [facility], [facility] home [facility] please, 180, cm, 04/08/20 13:32:00 EST, Height, 181.... Start Date: 01/22/21 Stop Date: 01/17/22 Status: Ordered clopidogrel 75 mg oral tablet 75 mg, 1, tablet, By Mouth, Daily, for 30 days, # 30 tablet, Refills 11, Tot. Refills 11, Hard Stop01/22/21 16:10:00 EDT, 01/28/20 16:10:00 EDT, Route to Pharmacy Electronically, [facility], 180.3, cm, 01/28/20 12:32:00 EDT, Height, 168... Start Date: 01/28/20 Stop Date: 01/22/21 Status: Ordered FLUoxetine 20 mg oral capsule 20 mg, 1, capsule, By Mouth, Daily, # 90 capsule, Refills 4, Tot. Refills 4, Maintenance, 06/26/20 17:25:00 EST, Route to Pharmacy Electronically, [facility], home delivery, 180, cm, 06/26/20 14:13:00 EST, Height, 181.6, kg, 03/27/... Start Date: 06/26/20 Status: Ordered furosemide 20 mg oral tablet 20 mg, 1, tablet, By Mouth, Daily in AM, # 90 tablet, Refills 3, Tot. Refills 3, Maintenance, 09/24/20 16:36:00 EDT, Route to Pharmacy Electronically, [facility], home delivery please, 180, cm, 06/26/20 14:13:00 EST, Height, 181.6,... Start Date: 09/24/20 Status: Ordered furosemide 20 mg oral tablet 20 mg, 1, tablet, By Mouth, Daily in AM, # 90 tablet, Refills 3, Tot. Refills 3, Hard Stop 09/25/2115:36:00 EDT, 05/27/20 16:36:00 EST, Route to Pharmacy Electronically, [facility]acy #1972, home delivery please, 180, cm, 04/08/20 13:32:00 EST, Height... Start Date: 05/27/20 Stop Date: 09/24/20 Status: Ordered levothyroxine 0.05 mg oral tablet 1 tablet = 50 mcg, By Mouth, Daily, # 90 tablet, 4 Refills, Maintenance, 06/26/20 17:25:00 EST, Tablet, [facility], home delivery, 180, cm, 06/26/20 14:13:00 EST, Height, 181.6, kg, 03/27/20 14:58:00 EST, Dry Weight Start Date: 06/26/20 Status: Ordered lidocaine 5% topical cream 1 application, Topically, 3 times a day, may interchange 3-5% cream or ointment per insurance coverage., # 45 Gm, 0 Refills, Maintenance, 06/26/20 17:30:00 EST, Cream, [facility],1 application Topically 3 times a day,Instr:may int... Start Date: 06/26/20 Status: Ordered lisinopril 5 mg oral tablet 2.5 mg, 0.5, tablet, By Mouth, Daily, for 30 days, # 45 tablet, Refills 3, Tot. Refills 3, Hard Stop 11/23/20 16:12:00 EDT, 07/26/20 16:12:00 EDT, Route to Pharmacy Electronically, [facility]/pharmacy #1972, home delivery please, 180, cm, 06/26/20 14:13:00 E... Start Date: 07/26/20 Stop Date: 11/23/20 Status: Ordered lisinopril 5 mg oral tablet 2.5 mg, 0.5, tablet, By Mouth, Daily, # 45 tablet, Refills 3, Tot. Refills 3, Maintenance, 11/24/2115:12:00 EDT, Route to Pharmacy Electronically, [facility], home delivery, 180,cm, 06/26/20 14:13:00 EST, Height, 181.6, kg, 03/27... Start Date: 11/23/20 Stop Date: 03/23/21 Status: Ordered metoprolol 25 mg oral tablet, extended release 25 mg, 1, tablet, By Mouth, Daily, # 90 tablet, Refills 4, Tot. Refills 4, Maintenance, 06/26/20 17:25:00 EST, Route to Pharmacy Electronically, [facility], home delivery, 180, cm, 06/26/20 14:13:00 EST, Height, 181.6, kg, 03/27/20... Start Date: 06/26/20 Status: Ordered nortriptyline 10 mg oral capsule 10 mg, 1, capsule, By Mouth, Daily, # 90 capsule, Refills 3, Tot. Refills 3, Maintenance, 06/26/20 17:28:00 EST, Route to Pharmacy Electronically, [facility], 180, cm, 06/26/20 14:13:00 EST, Height, 181.6, kg, 03/27/20 14:58:00 EST... Start Date: 06/26/20 Status: Ordered omeprazole 20 mg oral delayed release tablet 1 tablet = 20 mg, By Mouth, Daily, PRN gastroesophageal acid reflux, # 30 tablet, 1 Refills, Maintenance, 04/13/20 14:37:00 EST, CR Tablet, [facility]/pharmacy #1972, Partial fill upon patient request [...] 06/26/20 17:25:00 EST, Route to Pharmacy Electronically, [facility], home delivery, 180, cm, 06/26/20 14:13:00 EST, [...] consistent with a cyst on CT at [facility] 04/2019(Confirmed) 04/2019 Active Coronary artery [...] CT scan of the abdomen done at [facility] on 08-08-16 Social History Social History Type Response Smoking Status 10 or more cigarette s (1/2 pack or more)/day in last 30 days entered on: 05/14/20 Sex
--- OUTSIDE RECORDS SUMMARY | 2023-01-21 00:01 | XMS_ITS | Continuity of Care Document ---
Author Name Unknown Organization [facility] ter Address [address] [place] [id number]- Care Team Providers Care Curber Name Role Phone [place] TORRES, Preet Hall Primary Care Physician [facility]counter [facility] Date(s): 12/11/21 - 12/12/[address] [address]- Encounter Diagnosis ACS (acute coronary syndrome)(Final) - 12/11/21 Discharge Disposition: A-D/C Home Attending Physician: Beckie Elam MD Admitting Physician: Marie TORRES, Aracelis Mello Referring Physician: Not on Staff, Referring MD [...] oral tablet 6.25 mg, Tablet, By Mouth, 12/12/21 9:00:00 EDT Start Date: 12/12/21 Stop Date: 12/12/21 Status: Completed carvedilol 6.25 mg oral tablet [...] Refills, Maintenance, 06/09/21 12:34:00 EST, Tablet, [facility], Partial fill upon [...] 11:03:00 EDT, Aerosol, Route to Pharmacy Electronically, [id number]... Start Date: 07/29/21 Status: Ordered torsemide 20 [...] consistent with a cyst on CT at [facility] 04/2019(Confirmed) 04/2019 Active Coronary artery [...] Morbid obesity(Confirmed) Active Obstructive sleep apnea(Confirmed) Active .Keypuncher: Tejas Segal [phone], [facility]. BHCPP(Confirmed) Active Post traumatic stress disord er (PTSD)(Confirmed) 1999 Active Severe obesity(Confirmed) Active 1-Seen in CT scan of the abdomen done at [facility] on 08-08-16 Results Radiology Reports * Exam Date Time Procedure Performing Provider Status 12/11/21 5:36 AM Chest Portable Temitope No; Auth (Verified) Notes: (Chest Portable) Reason For Exam: Shortness of Breath RESULT: Chest Portable Chest Portable Hx of Present Illness: cp sob, got 324 of asa, pain radiating to back, constant sharp, satting 92 on RA; Reason: Shortness of Breath; Clinical Question(s): CHF COMPARISON: Multiple prior examinations the most recent dated 11/18/2021. FINDINGS: The examination is limited by the patient's body habitus and underpenetration. LINES AND TUBES: None. LUNGS AND PLEURA: Minimal residual retrocardiac density probably representing left basilar atelectasis. Probable mildatelectasis right lung base. There could be small left pleural effusion. No pneumothorax. HEART, MEDIASTINUM AND CAROLA: Heart is normal in size. Normal upper mediastinal and hilar contour. BONES AND SOFT TISSUES: No acute abnormality. IMPRESSION: Probable bibasilar atelectasis. No pulmonary vascular congestion or interstitial edema is seen. Limited examination due to the patient's body habitus. WSN: [id number] Ordering Physician: Amie Grubbs Dictated By: José Fritz MD, V Dictated Date/Time: 12/11/21 9:15 am Reviewed By: José Fritz MD, V Signed By: José Fritz MD, V Signed Date/Time: 12/11/21 9:15 am Transcribed By: SHANNA Transcribed Date/Time: 12/11/21 9:13 am Vital Signs Most recent to oldest [Reference Range]: 1 2 3 Height 180.34 cm (12/12/21 7:24 AM) 180.34 cm (12/12/21 4:42 AM) 180.34 cm (12/11/21 10:07 PM) Weight 182 kg (12/11/21 10:07 PM) 183.9 kg (12/11/21 9:13 PM) Oxygen Saturation [94-100 %] 95 % (12/12/21 7:24 AM) 93 % *L* (12/12/21 4:42 AM) 100 % (12/11/21 10:07 PM) Pulse Rate [55-90 bpm] 69 bpm (12/12/21 9:37 AM) 69 bpm (12/12/21 7:24 AM) 59 bpm (12/12/21 4:42 AM) Body Mass Index [18.5-24.99] 55.96 *>HHI* (12/11/21 10:07 PM) Blood Pressure [90-138/55-84 mm Hg] 114/63mm Hg (12/12/21 9:37 AM) 114/63mm Hg (12/12/21 7:24 AM) 97/56mm Hg (12/12/21 4:42 AM) Respiratory Rate [16-30 br/min] 20 br/min (12/12/21 7:24 AM) 18 br/min (12/12/21 4:42 AM) 18 br/min (12/11/21 11:16 PM) Temperature [96.8-100.4 DegF] 98.0 DegF (12/12/21 7:24 AM) 98 DegF (12/12/21 4:42 AM) 97.4 DegF (12/11/21 10:07 PM) Liters per Minute 2 L/min (12/12/21 7:24 AM) 3 L/min (12/12/21 4:42 AM) 4 L/min (12/11/21 7:48 PM) Mode of Delivery (Oxygen) Nasal cannula (12/12/21 7:24 AM) Nasal cannula (12/12/21 4:42 AM) Room air (12/11/21 10:07 PM) Blood pressure sites Arm, right (12/12/21 7:24 AM) Arm, right (12/12/21 4:42 AM) Arm, right (12/11/21 10:07 PM) Temperature Route Oral (12/12/21 7:24 AM) Oral (12/12/21 4:42 AM) Oral (12/11/21 10:07 PM) Dry Weight 182 kg (12/11/21 10:07 PM) Weight Obtained Via Standing scale (12/11/21 9:13 PM) Social History Social History Type Response Smoking Status 10 or more cigarette s (1/2 pack or more)/day in last 30 days; Interested in cessation: No; Patient wants NRT during admission No entered on: 06/03/21 Sex
--- OUTSIDE RECORDS SUMMARY | 2023-01-21 00:01 | XMS_ITS | Continuity of Care Document ---
Author Name Unknown Organization [facility] ter Address [address] [place] [address]- Care Team Providers Care Catering Staff Member Name Role Phone Preet Sofia MD Primary Care Physician [facility] Date(s): 11/14/22 - 11/14/[address] [address]- Encounter Diagnosis Shortness of breath(Final) - 11/14/22 Discharge Disposition: A-D/C Home Attending Physician: Lila Mayer DO Admitting Physician: Lila Mayer DO Referring Physician: Not on Staff, Referring MD Allergies, Adverse Reactions, Alerts No Known Allergies Immunizations Given and Recorded Vaccine Date Status Refusal Reason SARS-CoV-2 (COVID-19) [id number] vaccine 05/11/21 G iven influenza virus vaccine, [...] 3 Refills, Maintenance, 10/19/22 20:02:00 EDT, Tablet, [id number], 180, cm, 10/19/22 4:49:00 EDT, [...] 10/19/22 20:05:00 EDT, Route to Pharmacy Electronically, [id number], 180, cm, 10/19/22 4:49:00 EDT, Height, 181, kg, 09/26/22 14:48:00 EDT, Dry W... Start Date: 10/19/22 Status: Ordered Dilaudid 2 mg oral tablet See Instructions, PRN Pain , Severe, 1 tablet By Mouth every 4 hours up to 3x/day during daytime asneeded for severe pain. 7 day or more supply., # 21 tablet, 0 Refills, Maintenance, 11/10/22 20:43:00 EDT, Tablet, [facility] #[id number], Partial fill upo... Start Date: 11/10/22 Status: Ordered duloxetine 30 mg oral enteric coated capsule 1 capsule = 30 mg, By Mouth, Daily at bedtime, # 30 capsule, 1 Refills, Maintenance, 10/12/22 12:25:00 EDT, Capsule, [facility], Partial fill upon patient [...] 3 Refills, Maintenance, 10/19/22 20:06:00 EDT, Tablet, [id number], 180, cm, 10/19/22 4:49:00 EDT, [...] 0 Refills, Maintenance, 06/09/21 12:34:00 EST, Tablet, [facility], Partial fill upon patient [...] 10/19/22 20:09:00 EDT, Route to Pharmacy Electronically, [id number], 180, cm, 10/19/22 4:49:00 EDT, [...] 5 Refills, Maintenance, 10/19/22 20:12:00 EDT, Tablet, [id number], 180, cm, 10/19/22 4:49:00 EDT, [...] with a cyst on CT at [facility] 04/2019 Confirmed 04/2019 Active Coronary [...] Confirmed Active Obstructive sleep apnea Confirmed Active .Centerless Grinder Operator: Lucita Segal [phone], [facility]. CPP Confirmed Active Post traumatic stress disorder (PTSD) Confirmed 1999 Active Severe obesity Confirmed Active 1-Seen in CT scan of the abdomen done at [facility] on 08-08-16 Results Radiology Reports * Exam Date Time Procedure Performing Provider Status 11/14/22 7:52 AM Chest Portable Arnulfo , Yasmine; Auth (V erified) Notes: (Chest Portable) Reason For Exam: Shortness of Breath RESULT: Chest Portable Chest Portable Hx of Present Illness: SOB; Reason: Shortness of Breath; Clinical Question(s): CHF; Order Comment: Pt. was on bed porras. @ 0715 DE COMPARISON: 11/04/2022 FINDINGS: LINES AND TUBES: None. LUNGS AND PLEURA: Low lung volumes with mild basilar atelectasis. Lungs are otherwise clear with no consolidation. No pleural effusion. No pneumothorax. HEART, MEDIASTINUM AND CAROLA: Heart is normal in size. Normal mediastinal and hilar contour. BONES AND SOFT TISSUES: No acute abnormality. IMPRESSION: No acute abnormality. Examination limited due to low lung volumes/AP technique. WSN: [id number] Ordering Physician: Amanda Glez Dictated By: Delfin Royal MD Dictated Date/Time: 11/14/22 8:12 am Reviewed By: Delfin Royal MD Signed By: Delfin Royal MD Signed Date/Time: 11/14/22 8:12 am Transcribed By: SHANNA Transcribed Date/Time: 11/14/22 8:11 am Vital Signs Most recent to oldest [Reference Range]: 1 2 3 Oxygen Saturation [94-100 %] 96 % (11/14/22 9:10 AM) 95 % (11/14/22 8:12 AM) 99 % (11/14/22 6:41 AM) Pulse Rate [55-90 bpm] 70 bpm (11/14/22 9:10 AM) 76 bpm (11/14/22 8:12 AM) 78 bpm (11/14/22 6:41 AM) Blood Pressure [90-138/55-84 mm Hg] 150/100mm Hg *H* (11/14/22 9:10 AM) 154/110mm Hg *H* (11/14/22 8:12 AM) 144/110mm Hg *H* (11/14/22 6:41 AM) Respiratory Rate [16-30 br/min] 22 br/min (11/14/22 9:10 AM) 24 br/min (11/14/22 8:12 AM) 26 br/min (11/14/22 6:41 AM) Temperature [96.8-100.4 DegF] 97.6 DegF (11/14/22 8:12 AM) 97.4 DegF (11/14/22 6:41 AM) Mode of Delivery (Oxygen) Room air (11/14/22 9:10 AM) Room air (11/14/22 8:12 AM) Room air (11/14/22 6:41 AM) Temperature Route Oral (11/14/22 8:12 AM) Oral (11/14/22 6:41 AM) Social History Social History Type Response Smoking Status 10 or more cigarette s (1/2 pack or more)/day in last 30 days; Interested in cessation: No; Patient wants NRT during admission No entered on: 06/03/21 Sex Male Patient Care team information Care Team Personnel Name: Brenda Vanegas RN Position: [facility] RN Member Role: Primary Care Nurse Name: Renae Rashid RN Position: [facility] RN Member Role: Primary Care Nurse Name: Lizbeth Reardon RN Position: [facility] RN Member Role: Primary Care Nurse Name: Brittny Griffin RN Position: [facility] RN Member Role: Primary Care Nurse Name: Rickey Cruz RN Position: [facility] RN Member Role: Primary Care Nurse Name: Brandee Bee RN Position: [facility] RN Member Role: Primary Care Nurse Name: Janie Gamez RN Position: [facility] RN Member Role: Primary Care Nurse Name: Jing Santiago RN Position: [facility] RN Member Role: Primary Care Nurse Name: Sven Bustos RN Position: [facility] RN Member Role: Primary Care Nurse Name: Sharron Schaefer RN Position: [facility] RN Member Role: Primary Care Nurse Name: Franca Luis LPN Position: [facility] RN Member Role: Primary Care Nurse Name: Sheryl Linda RN Position: [facility] RN Member Role: Primary Care Nurse Name: Zara Aldridge RN Position: [facility] RN Member Role: Primary Care Nurse Name: Preet Sofia MD Position: [facility] Physician - Primary Care Member Role: PCP Address: Address: [address] [place] [address] Name: Betsey Harvey RN [facility] Care Nurse Name: Naomi Mcadams RN Position: [facility] RN [...] RN Member Role: Primary Care Nurse Name: Guido Lees Position: [facility] ED TA [facility] Member Role: Political Organizer Name: Michael Leone RN Position: [facility] ED RN W/OE and Tasks Member Role: Patient Care Provider Name: Lila Mayer DO Position: [facility] Resident Member Role: Admitting Physician Address: Address: [address] [place] [id number] Name: Donna eKnny RN Position: [facility] ED RN W/OE and Tasks Member Role: Patient Care Provider Name: Gia Palmer MD Position: [facility] Resident Member Role: ED Resident Address: Address: [address] [place] [address]- Care Team Related Persons Name: DIAN RODGERS Address: [place] [address] Name: KT LANDEROS Address: [place] [address] Name: TAE QUIROZ Address: [place] [id number]
--- OUTSIDE RECORDS SUMMARY | 2023-01-21 00:01 | XMS_ITS | Continuity of Care Document ---
Author Name Unknown Organization [facility] ter Address [address] [place] [address]- Care Team Providers Care Pin Machine Tender Name Role Phone Preet Sofia MD Primary Care Physician Encounter [facility] Date(s): 11/07/20 - 12/13/[address] [address] Attending Physician: Bacilio Bentley MD Admitting Physician: Bacilio Bentley MD Referring Physician: Bacilio Bentley MD Allergies, Adverse Reactions, Alerts Substance Reaction [...] 03/28/20 Not Given Patient Refuses 1Location History: [facility] 2Location History: [facility] 3Location History: [facility] 4Location History: [facility] Medications aspirin 81 mg oral delayed release tablet 81 mg, By Mouth, Daily, # 90 tablet, Refills 4, Tot. Refills 4, Maintenance, 09/03/20 20:10:00 EDT,Route to Pharmacy Electronically, [facility], 180, cm, 09/03/20 9:24:00 EDT, Height, 172.7, kg, 08/28/20 4:44:00 EDT, Dry Weight Start Date: 09/03/20 Status: Ordered atorvastatin 40 mg oral tablet 1 tablet = 40 mg, By Mouth, Daily at bedtime, # 90 tablet, 4 Refills, Maintenance, 09/03/20 20:11:00 EDT, Tablet, [facility], 180, cm, 09/03/20 9:24:00 EDT, Height, 172.7, kg, 08/28/20 4:44:00 EDT, Dry Weight Start Date: 09/03/20 Status: Ordered carvedilol 3.125 mg oral tablet 3.125 mg, 1, tablet, By Mouth, 2 times a day, # 180 tablet, Refills 0, Tot. Refills 0, Maintenance,09/21/20 13:23:00 EDT, Route to Pharmacy Electronically, [facility], Partial fill upon patient request if the prescription is for a sched... Start Date: 09/21/20 Status: Ordered clopidogrel 75 mg oral tablet 75 mg, 1, tablet, By Mouth, Daily, # 90 tablet, Refills 3, Tot. Refills 3, Hard Stop 01/17/22 16:10:00 EDT, 01/22/21 16:10:00 EDT, [id number], 180, cm, 04/08/20 13:32:00 EST, Height, 181.... Start Date: 01/22/21 Stop Date: 01/17/22 Status: Ordered Entresto 24 mg-26 mg oral tablet 1 tablet, By Mouth, 2 times a day, # 180 tablet, 0 Refills, Maintenance, 09/21/20 13:24:00 EDT, Tablet, [facility], Partial fill upon patient request if the prescription is for a schedule II opioid drug., 1 tablet By Mouth 2 times a day,... Start Date: 09/21/20 Status: Ordered FLUoxetine 20 mg oral capsule 20 mg, 1, capsule, By Mouth, Daily, # 90 capsule, Refills 4, Tot. Refills 4, Maintenance, 09/03/20 20:09:00 EDT, Route to Pharmacy Electronically, [facility], home delivery, 180, cm, 09/03/20 9:24:00 EDT, Height, 172.7, kg, ... Start Date: 09/03/20 Status: Ordered levothyroxine 0.05 mg oral tablet 1 tablet = 50 mcg, By Mouth, Daily, # 90 tablet, 4 Refills, Maintenance, 06/26/20 17:25:00 EST, Tablet, [facility], home delivery, 180, cm, 06/26/20 14:13:00 EST, Height, 181.6, kg, 03/27/20 14:58:00 EST, Dry Weight Start Date: 06/26/20 Status: Ordered nortriptyline 10 mg oral capsule 10 mg, 1, capsule, By Mouth, Daily, # 90 capsule, Refills 3, Tot. Refills 3, Maintenance, 09/03/20 20:09:00 EDT, Route to Pharmacy Electronically, [facility], 180, cm, 09/03/20 9:24:00 EDT, Height, [...] 06/26/20 17:25:00 EST, Route to Pharmacy Electronically, [facility], home delivery, 180, cm, 06/26/20 14:13:00 EST, Height, 181.6, kg, 03/27/20... Start Date: 06/26/20 Status: Ordered torsemide 20 mg oral tablet 1 tablet = 20 mg, By Mouth, Daily, # 90 tablet, 0 Refills, Maintenance, 09/21/20 13:23:00 [facility] [...] consistent with a cyst on CT at [facility] 04/2019(Confirmed) 04/2019 Active Coronary artery [...] Morbid obesity(Confirmed) Active Obstructive sleep apnea(Confirmed) Active .Retail Performance Specialist: Zoltan Diaz [phone], [facility]. CPP(Confirmed) Active Post traumatic stress disord er (PTSD)(Confirmed) 1999 Active 1-Seen in CT scan of the abdomen done at [facility] on 08-08-16 Social History Social History Type Response Smoking Status 10 or more cigarette s (1/2 pack or more)/day in last 30 days; Other: u20soide; entered on: 09/03/20 Sex
--- OUTSIDE RECORDS SUMMARY | 2023-01-21 00:01 | XMS_ITS | Continuity of Care Document ---
Author Name Unknown Organization [facility] Address [address] [place] [address]- Care Team Providers Care Commercial Airplane Pilot Name Role Phone Preet Sofia MD Primary Care Physician [facility] Date(s): 11/12/22 - 12/12/22 [facility] [address]- [place] Allergies, Adverse Reactions, Alerts No Known Allergies Immunizations Given and Recorded Vaccine Date Status Refusal Reason SARS-CoV-2 (COVID-19) mRNA-7757 vaccine 05/11/21 G iven influenza virus vaccine, inactivated 1 02/08/14 Re corded hepatitis B adult vaccine 01/22/13 Recorded hepatitis B adult vaccine 08/12/10 Recorded hepatitis B adult vaccine 2 03/09/10 Recorded Hepatitis A Adult Vaccine 3 08/12/10 Recorded Hepatitis A Adult Vaccine 4 02/27/10 Recorded 1Location History: [facility] 2Location History: [facility] [...] Refills, Maintenance, 12/22/22 14:06:00 EDT, Tablet, [facility]/pharmacy #[id number], 178, cm, 11/22/22 18:01:00 EDT, [...] Route to Pharmacy Electronically, [facility]/pharmacy #[id number], Partial fill upon patient request if the prescription... Start Date: 11/22/22 Stop Date: 12/22/22 Status: Ordered carvedilol 3.125 mg oral tablet 3.125 mg, By Mouth, 2 times a day, # 60 tablet, Refills 5, Tot. Refills 5, Maintenance, 12/22/22 14:14:00 EDT, Route to Pharmacy Electronically, [facility]/pharmacy #[id number], 178, cm, 11/22/22 18:01:00 EDT, [...] 0 Refills, Maintenance, 12/06/22 13:35:00 EDT, Tablet, [facility] Start Date: 12/06/22 Status: Ordered duloxetine 30 mg oral enteric coated capsule 1 capsule = 30 mg, By Mouth, Daily at bedtime, for 30 days, # 30 capsule, 1 Refills, Hard Stop 01/21/23 14:06:00 EDT, 11/22/22 14:06:00 EDT, Capsule, [facility]/pharmacy #[id number], Partial fill upon patient request if the prescription is for a schedule II opioid... Start Date: 11/22/22 Stop Date: 01/21/23 Status: Ordered duloxetine 30 mg oral enteric coated capsule 1 capsule = 30 mg, By Mouth, Daily at bedtime, # 30 capsule, 5 Refills, Maintenance, 01/21/23 14:06:00 EDT, Capsule, [facility]/pharmacy #[id number], Partial fill upon patient request [...] 14:07:00 EST, 11/22/22 14:07:00 EDT, Tablet, [facility]/pharmacy #[id number], 178, cm, 11/22/22 11:40:00 EDT, [...] 20:08:00 EDT, REC Powder, [facility]/pharmacy #[id number], 17 Gm By Mouth Daily,PRN:Constipation,Instr:dissolve [...] 14:07:00 EDT, Route to Pharmacy Electronically, [facility]/pharmacy #[id number], 178, cm, 11/22/22 11:40:00 EDT, Height, 164.9, kg, 07... Start Date: 11/22/22 Stop Date: 12/22/22 Status: Ordered spironolactone 25 mg oral tablet 25 mg, 1, tablet, By Mouth, Daily, # 30 tablet, Refills 5, Tot. Refills 5, Maintenance, 12/22/22 14:07:00 EDT, Route to Pharmacy Electronically, [facility]/pharmacy #[id number], 178, cm, 11/22/22 18:01:00 EDT, [...] 14:06:00 EDT, Aerosol, Route to Pharmacy Electronically, [id number]... Start Date: 11/22/22 Status: Ordered torsemide 20 mg oral tablet 1 tablet = 20 mg, By Mouth, 2 times a day, for 30 days, # 60 tablet, 0 Refills, Hard Stop 12/22/22 14:08:00 EDT, 11/22/22 14:08:00 EDT, Tablet, [facility]/pharmacy #[id number], 178, cm, 11/22/22 11:40:00 EDT, [...] 01/31/23 14:05:45 EDT, 10/19/22 20:00:00 EDT, Tablet, [facility] #[id number], 180, cm, 10/19/22 4:49:00 EDT, Height, 181, kg, 09/26/22 14:48:00... Start Date: 10/19/22 Stop Date: 01/31/23 Status: Ordered Tylenol Extra Strength 500 mg oral tablet 1 tablet = 500 mg, By Mouth, 3 times a day, PRN Pain , Moderate, # 100 tablet, 5 Refills, Maintenance, 01/31/23 14:05:00 EDT, Tablet, [facility]acy #[id number], 178, cm, 11/22/22 18:01:00 EDT, Height, [...] consistent with a cyst on CT at [facility] 04/2019 Confirmed 04/2019 Active Coronary [...] Confirmed Active Obstructive sleep apnea Confirmed Active .Mold Mechanic: Lucita Segal [phone], [facility]. CPP Confirmed Active Post traumatic stress disorder (PTSD) Confirmed 1999 Active Pulmonary embolus most branches of R lung, Dx at [place], [place] on 11/28/22. L popliteal & peroneal [...] Team Personnel Name: Jim Munguia RN Position: [facility] RN Supv Member Role: [...] Care Nurse Name: Sven Bustos RN Position: [facility] RN Member Role: Primary Care Nurse Name: Sharron Schaefer RN Position: [facility] RN Member Role: Primary Care Nurse Name: Franca Luis LPN Position: [facility] RN Member Role: Primary Care Nurse Name: Sheryl Linda RN Position: [facility] RN Member Role: Primary Care Nurse Name: Zara Aldridge RN Position: [facility] RN Member Role: Primary Care Nurse Name: Preet Sofia MD Position: [facility] Physician - Primary Care Member Role: PCP Address: Address: [address] [place] [address] [id number] Name: Betsey Harvey RN Position: [facility] RN Member Role: Primary Care Nurse Name: Camila Cervantes RN Position: [facility] RN Member Role: Primary Care Nurse Name: Aruna Warren RN Position: [facility] RN Member Role: Primary Care Nurse Name: Naomi Kyle RN Position: [facility] RN Member Role: Primary Care Nurse Name: Pavan Espinoza RN Position: [facility] RN Member Role: Primary Care Nurse Name: Lynne Shah RN Position: [facility] RN Member Role: Primary Care Nurse Name: Ashwini Larson RN Position: [facility] SN RN Member Role: Primary Care Nurse Name: Lorraine Good RN Position: [facility] RN Member Role: Primary Care Nurse Name: Mohan Quijano RN Position: [facility] RN Member Role: Primary Care Nurse Name: Shaina Nagy RN Position: [facility] RN Member Role: Primary Care Nurse Name: Sarah Gordon RN Position: [facility] Onco RN Member Role: Primary Care Nurse Name: Catalina Cook RN Position: [facility] RN Member Role: Primary Care Nurse Name: Sweta Lang RN Position: [facility] RN Member Role: Primary Care Nurse Name: Kely Morton RN Position: [facility] RN Member Role: Primary Care Nurse Care Team Related Persons Name: DIAN RODGERS Address: [place] [address] Name: KT LANDEROS Address: [place] [address] Name: GABRIELLAABBYTAE Address: home [place] [address]
--- OUTSIDE RECORDS SUMMARY | 2023-01-21 00:01 | XMS_ITS | Continuity of Care Document ---
Author Name Unknown Organization [facility] ter Address [address] [place] [address]- Care Team Providers Care Instructional Services Specialist Name Role Phone Preet Sofia MD Primary Care Physician [phone] Encounter [facility] Date(s): 11/16/21 - 11/18/[address] [address]- Encounter Diagnosis Precordial chest pain(Final) - 11/16/21 Discharge Disposition: A-D/C Home Attending Physician: Kennedy Nicole MD Admitting Physician: Lyssa TORRES, Jese Referring Physician: Not on Staff, Referring MD Allergies, Adverse Reactions, Alerts No Known Allergies Immunizations Given and Recorded Vaccine Date Status Refusal Reason SARS-CoV-2 (COVID-19) [id number] vaccine 05/11/21 G iven influenza virus vaccine, [...] Daily, # 28 tablet, 1 Refills, [facility], 180, cm, 11/03/21 2:14:00 EDT, Height, [...] 6.25 mg, Tablet, By Mouth, Hold for: if SBP < 100 and HR < 60, 11/18/21 9:00:00 EDT Start Date: 11/18/21 Stop Date: 11/18/21 Status: Completed carvedilol 6.25 mg oral tablet [...] hours, PRN for Pain , Severe, Routine, 11/17/21 18:04:00 EDT Start Date: 11/17/21 Stop Date: 11/18/21 Status: Discontinued Entresto 24 mg-26 mg oral [...] Refills, Maintenance, 07/02/21 18:28:00 EST, Tablet, [facility], 180, cm, 06/16/21 15:51:00 EST, Height, 168.5, kg, 06/03/21 15:52:00 EST, Dry Weight Start Date: 07/02/21 Status: Ordered nitroglycerin 0.4 mg sublingual tablet 1 tablet = 0.4 mg, Sublingual, Every 5 minutes, PRN Chest Pain, # 100 tablet, 0 Refills, Maintenance, 06/09/21 12:34:00 EST, Tablet, [facility], Partial fill upon patient request if theprescription is for a schedule II opioid drug., 180... Start Date: 06/09/21 Status: Ordered spironolactone 25 mg oral tablet 25 mg, 1, tablet, By Mouth, Daily, # 30 tablet, Refills 5, Tot. Refills 5, Maintenance, 12/06/21 12:34:00 EDT, Route to Pharmacy Electronically, [facility], home delivery, 180, cm, 06/16/21 15:51:00 EST, Height, 168.5, kg, 06/03/21 15:52:0... Start Date: 12/06/21 Status: Ordered Symbicort 80mcg/4.5mcg Inhaler 2, puffs, Inhalation, 2 times a day, in the morning and the evening use with spacer chamber rinse mouth and throat after use, # 1 each, Refills 1, Tot. Refills 1, Maintenance, 07/29/21 11:03:00 EDT, Aerosol, Route to Pharmacy Electronically, [id number]... Start Date: 07/29/21 Status: Ordered torsemide 20 [...] consistent with a cyst on CT at [facility] 04/2019(Confirmed) 04/2019 Active Coronary artery disease, [...] Morbid obesity(Confirmed) Active Obstructive sleep apnea(Confirmed) Active .Teacher: Tejas Segal [phone], [facility]. CPP(Confirmed) Active Post traumatic stress disord er (PTSD)(Confirmed) 1999 Active Severe obesity(Confirmed) Active 1-Seen in CT scan of the abdomen done at [facility] on 08-08-16 Results Radiology Reports * Exam Date Time Procedure Performing Provider Status 11/16/21 11:02 AM Knee 1 or 2 Views Left Louisa Martinez (Verified) Notes: (Knee 1 or 2 Views Left) Reason For Exam: Pain RESULT: Knee 1 or 2 Views Left Examination: Left knee performed on 11/16/2021. History: Reason: Pain; Clinical Question(s): Arthritis Findings: Frontal and lateral views of the left knee are compared to a prior study dated 09/12/2021. No fractures or dislocations are demonstrated. There is no joint effusion. IMPRESSION: There is no acute osseous abnormality. WSN: [id number] Ordering Physician: Fazal Crain Dictated By: Delaney Baer MD Dictated Date/Time: 11/16/21 1:12 pm Reviewed By: Delaney Baer MD Signed By: Delaney Baer MD Signed Date/Time: 11/16/21 1:12 pm Transcribed By: SHANNA Transcribed Date/Time: 11/16/21 1:12 pm * Exam Date Time Procedure Performing Provider Status 11/16/21 12:01 AM Chest 2 Views Frontal and Lat Ashwini Stuart; Shasha (Verified) Notes: (Chest 2 Views Frontal and Lat) Reason For Exam: Chest Pain;Other: RESULT: Chest 2 Views Frontal and Lat Examination: Chest performed on 11/15/2021. History: Acute onset chest pressure. Findings: Frontal and lateral views of the chest are compared to a prior study dated 11/01/2021. There is stable cardiomegaly. Bilateral pleural effusions are seen. There is no pulmonary edema. Osteophyte formation within the thoracic spine is noted. IMPRESSION: Small pleural effusions. Stable cardiomegaly. WSN: [id number] Ordering Physician: Zain Maradiaga Dictated By: Delaney Baer MD Dictated Date/Time: 11/16/21 7:51 am Reviewed By: Delaney Baer MD Signed By: Delaney Baer MD Signed Date/Time: 11/16/21 7:51 am Transcribed By: SHANNA Transcribed Date/Time: 11/16/21 7:50 am Vital Signs Most recent to oldest [Reference Range]: 1 2 3 Height 180 cm (11/18/21 7:55 AM) 180 cm (11/18/21 1:30 AM) 180 cm (11/17/21 8:05 PM) Weight 183.7 kg (11/18/21 5:42 AM) 182 kg (11/16/21 4:48 PM) 182 kg (11/16/21 5:56 AM) Oxygen Saturation [94-100 %] 97 % (11/18/21 7:55 AM) 95 % (11/18/21 1:30 AM) 96 % (11/17/21 8:05 PM) Pulse Rate [55-90 bpm] 58 bpm (11/18/21 8:40 AM) 58 bpm (11/18/21 7:55 AM) 64 bpm (11/18/21 1:30 AM) Body Mass Index [18.5-24.99] 56.17 *>HHI* (11/16/21 4:48 PM) 56.17 *>HHI* (11/16/21 5:56 AM) 56.17 *>HHI* (11/16/21 2:42 AM) Blood Pressure [90-138/55-84 mm Hg] 115/74mm Hg (11/18/21 8:40 AM) 115/74mm Hg (11/18/21 7:55 AM) 121/84mm Hg (11/18/21 1:30 AM) Respiratory Rate [16-30 br/min] 18 br/min (11/18/21 10:15 AM) 20 br/min (11/18/21 9:45 AM) 20 br/min (11/18/21 7:55 AM) Temperature [96.8-100.4 DegF] 97.4 DegF (11/18/21 7:55 AM) 97.4 DegF (11/18/21 1:30 AM) 97.6 DegF (11/17/21 8:05 PM) Liters per Minute 3 L/min (11/16/21 8:11 PM) 3 L/min (11/16/21 6:15 PM) 2 L/min (11/16/21 4:14 PM) Mode of Delivery (Oxygen) Room air (11/18/21 7:55 AM) Room air (11/18/21 1:30 AM) Room air (11/17/21 8:05 PM) Blood pressure sites Arm, right (11/18/21 7:55 AM) Arm, right (11/18/21 1:30 AM) Arm, left (11/17/21 8:05 PM) Temperature Route Temporal (11/18/21 7:55 AM) Temporal (11/18/21 1:30 AM) Temporal (11/17/21 8:05 PM) Dry Weight 182 kg (11/16/21 10:13 PM) 182 kg (11/16/21 4:48 PM) 182 kg (11/16/21 5:56 AM) Weight Obtained Via Standing scale (11/18/21 5:42 AM) Patient lift hanging scale (11/15/21 11:18 PM) Dry Weight Obtained Via Patient/family s tated (11/15/21 11:18 PM) Social History Social History Type Response Smoking Status 10 or more cigarette s (1/2 pack or more)/day in last 30 days; Interested in cessation: No; Patient wants NRT during admission No entered on: 06/03/21 Sex
[2023-01-21] MEDS: Albuterol Sulfate 2.5 MG, Albuterol Sulfate (0.083%) 2.5 MG 5 MG INHALE (00:02)
--- OUTSIDE RECORDS SUMMARY | 2023-01-21 00:02 | XMS_ITS | Continuity of Care Document ---
Author Name Unknown Organization [facility] ter Address [address] [place] [address]- Care Team Providers Care Supervisor Felting Name Role Phone Preet Sofia MD Primary Care Physician Encounter [facility] Date(s): 11/04/22 - 11/05/[address] [address]- Discharge Disposition: A-D/C Home Attending Physician: Main [...] 3 Refills, Maintenance, 10/19/22 20:02:00 EDT, Tablet, [id number], 180, cm, 10/19/22 [...] 10/19/22 20:05:00 EDT, Route to Pharmacy Electronically, [id number], 180, cm, 10/19/22 4:49:00 EDT, Height, 181, kg, 09/26/22 14:48:00 EDT, Dry W... Start Date: 10/19/22 Status: Ordered carvedilol 6.25 mg oral tablet 6.25 mg, Tablet, By Mouth, 11/04/22 21:00:00 EDT Start Date: 11/04/22 Stop Date: 11/04/22 Status: Completed Dilaudid 2 mg oral tablet [...] 1 Refills, Maintenance, 10/12/22 12:25:00 EDT, Capsule, [facility], Partial fill upon patient request if the prescription isfor a schedule II opioid drug., 180, cm, 10/12/22 1... Start Date: 10/12/22 Stop Date: 12/11/22 Status: Ordered Entresto 24 mg-26 mg oral tablet 1 tablet, By Mouth, 2 times a day, # 60 tablet, 5 Refills, Maintenance, 10/19/22 20:09:00 EDT, Tablet, [id number], 1 tablet By Mouth 2 [...] hours, PRN for Pain , Severe, Routine, 11/04/22 10:14:00 EDT Start Date: 11/04/22 Stop Date: 11/06/22 Status: Discontinued levothyroxine 0.2 mg oral tablet 1 tablet = 200 mcg, By Mouth, Daily, # 90 tablet, 3 Refills, Maintenance, 10/19/22 20:06:00 EDT, Tablet, [id number], 180, cm, 10/19/22 4:49:00 EDT, [...] Maintenance, 10/19/22 20:08:00 EDT, REC Powder, [id number], 17 Gm By Mouth Daily,PRN:Constipation,Instr:dissolve in water before taking, 180, cm,... Start Date: 10/19/22 Status: Ordered nitroglycerin 0.4 mg sublingual tablet 1 tablet = 0.4 mg, Sublingual, Every 5 minutes, PRN Chest Pain, # 100 tablet, 0 Refills, Maintenance, 06/09/21 12:34:00 EST, Tablet, [facility], Partial fill upon patient request [...] 20:09:00 EDT, Route to Pharmacy Electronically, [id number], 180, cm, 10/19/22 4:49:00 EDT, [...] Refills, Maintenance, 10/19/22 20:12:00 EDT, Tablet, [id number], 180, cm, 10/19/22 4:49:00 EDT, Height, 181, kg, 09/26/22 14:48:00 EDT, Dry Weight Start Date: 10/19/22 Status: Ordered Tylenol Extra Strength 500 mg oral tablet 2 tablet = 1,000 mg, By Mouth, Every 8 hours, PRN Pain , Moderate, # 120 tablet, 5 Refills, Maintenance, 10/19/22 20:00:00 EDT, Tablet, [id number], 180, cm, 10/19/22 4:49:00 EDT, [...] consistent with a cyst on CT at [facility] 04/2019 Confirmed 04/2019 Active Coronary [...] Confirmed Active Obstructive sleep apnea Confirmed Active .Sock Boarder: Lucita Segal [phone], [facility]. CPP Confirmed Active Post traumatic stress disorder (PTSD) Confirmed 1999 Active Severe obesity Confirmed Active 1-Seen in CT scan of the abdomen done at [facility] on 08-08-16 Results Radiology Reports * Exam Date Time Procedure Performing Provider Status 11/04/22 10:02 AM Chest 2 Views Frontal and Lat Debra Dumont; Auth (Verified) Notes: (Chest 2 Views Frontal and Lat) Reason For Exam: Shortness of Breath, Fever;Other: RESULT: Chest 2 Views Frontal and Lat Chest 2 Views Frontal and Lat Hx of Present Illness: CP midsternal radiating to back 9 10 sharp; Reason: Shortness of Breath, Fever; Clinical Question(s): Pneumonia COMPARISON: Multiple priors, most recent chest x-ray 11/02/2022, CT chest 09/17/2022 FINDINGS: LINES AND TUBES: None. LUNGS AND PLEURA: Low lung volumes with mild basilar atelectasis. Linear right basilar opacity. Lungs are otherwise clear with no consolidation. Mild blunting of the left costophrenic angle could represent small left pleural effusion . No pneumothorax. HEART, MEDIASTINUM AND CAROLA: Mild prominence of the cardiac silhouette, unchanged. Unchanged mediastinal and hilar contour. BONES AND SOFT TISSUES: No acute abnormality. IMPRESSION: Linear opacity at the right lung base likely represents atelectasis, but underlying pneumonia cannot be ruled out. Possible small left pleural effusion. I have personally reviewed the images and I agree with this report. WSN: [id number] Ordering Physician: Curtis Meadows Dictated By: Kaylan Mcnair MD Dictated Date/Time: 11/04/22 11:01 a Reviewed By: José Fritz MD, V Signed By: José Fritz MD, V Signed Date/Time: 11/04/22 11:06 am Transcribed By: SHANNA Transcribed Date/Time: 11/04/22 10:49 am Vital Signs Most recent to oldest [Reference Range]: 1 2 3 Oxygen Saturation [94-100 %] 95 % (11/05/22 6:18 AM) 95 % (11/04/22 6:04 PM) 94 % (11/04/22 5:01 PM) Pulse Rate [55-90 bpm] 80 bpm (11/05/22 10:36 AM) 67 bpm (11/05/22 6:18 AM) 91 bpm *H* (11/04/22 9:46 PM) Blood Pressure [90-138/55-84 mm Hg] 137/96mm Hg (11/05/22 10:36 AM) 121/67mm Hg (11/05/22 6:18 AM) 111/67mm Hg (11/04/22 9:46 PM) Respiratory Rate [16-30 br/min] 20 br/min (11/05/22 10:42 AM) 20 br/min (11/05/22 10:36 AM) 20 br/min (11/05/22 6:18 AM) Temperature [96.8-100.4 DegF] 98.9 DegF (11/05/22 6:18 AM) 98.4 DegF (11/04/22 12:32 PM) 98.4 DegF (11/04/22 9:15 AM) Liters per Minute 3 L/min (11/04/22 9:15 AM) Mode of Delivery (Oxygen) Room air (11/05/22 6:18 AM) Room air (11/04/22 6:04 PM) Room air (11/04/22 5:01 PM) Blood pressure sites Arm, right (11/05/22 6:18 AM) Arm, left (11/04/22 9:46 PM) Arm, left (11/04/22 6:04 PM) Temperature Route Oral (11/05/22 6:18 AM) Oral (11/04/22 12:32 PM) Oral (11/04/22 9:15 AM) Social History Social History Type Response Smoking Status 10 or more cigarette s (1/2 pack or more)/day in last 30 days; Interested in cessation: No; Patient wants NRT during admission No entered on: 06/03/21 Sex Male Consult note * Don Lange MD: PERFORM, SIGN, VERIFY Event Display: Consultation Note Authored Date: [id number] Patient: JAY MONTERO Age: 52 years Sex: Male : 1970 Associated Diagnoses: None Author: Don Lange MD Interventional Cardiology STEMI Activation Brief Note The patient is a 52-year-old male with a past medical history of coronary artery disease status post anterior STEMI in 2019 status post drug-eluting stent to the proximal LAD on January 24, 2020, heart failure with reduced ejection fraction LVEF 10 to 25%, hypertension, hyperlipidemia, morbid obesity, polysubstance abuse with cocaine, marijuana, tobacco dependence, obstructive sleep apnea, medication noncompliance, and history of leaving AGAINST MEDICAL ADVICE who presents to the emergency department as a STEMI alert for which interventional cardiology consultation was obtained. Patient has had multiple admissions to the hospital in the setting of chest discomfort with unremarkable work-up and was found to have decompensated heart failure. He was most recently admitted to the hospital from November 01 to November 03, 2022 where he presented with chest discomfort and shortness of breath and was admitted for decompensated heart failure. He has been noncompliant with his medications. He was admitted for a short period of time, however took out his IV lines and demanded discharge from the hospital. Patient reports that he went home when he continued to have his chronic chest discomfort which worsened around 5 AM this morning. He was brought into the emergency department as a [facility] alert. In the emergency department, he was hemodynamically stable. Electrocardiogram was reviewed and is largely unchanged from his prior EKGs over the past several years. at this time, this does not meet STEMI criteria and there are no obvious acute ischemic changes. At this time, recommend further work-up for congestive heart failure and chest pain as per primary team. Would recommend obtaining cardiac biomarkers, toxicology screen for drugs of abuse, and further management per emergency department team. There is no emergent need for cardiac catheterization at this time. Discussed with attending, Dr. Cowart. Don Lange MD Interventional Market Developer, PGY-7 Pager: [phone] Note * Joe TORRES, Main: PERFORM Event Display: Patient Education Leaflets Authored Date: [id number] Uncertain Causes of Chest Pain ?? [id number] Uncertain Causes of Chest Pain Chest pain [...] leg ?? Last Reviewed Date: 2021 ?? [id number] [employer]. All rights reserved. This information is not [...] Primary Care Member Role: PCP Address: Address: [address] [place] [address] Name: Betsey Harvey RN Position: [facility] Nurse Name: Selene SANDERSON, Kely Eng Position: [facility] RN Member Role: Primary Care Nurse [facility] Attending Position: [facility] ED Attendings Patient Name: Rebekah Morrison RN Position: [facility] ED RN W/OE and Tasks Member Role: Patient Care Provider Name: Main Diaz MD Position: [facility] ED Medicine MD Member Role: Admitting Physician Address: Address: [address] [place] [id number] Name: Jose Yost Position: [facility] ED TA [facility] Care Team Related Persons Name: DIAN RODGERS Address: [place] [address] Name: KT LANDEROS Address: [place] [address] Name: TAE QUIROZ Address: [place] [address]
--- OUTSIDE RECORDS SUMMARY | 2023-01-21 00:02 | XMS_ITS | Continuity of Care Document ---
Author Name Unknown Organization [facility] Address Unknown Care Team Providers Care Principal Web Developer Name Role Phone Preet Sofia MD Primary Care Physician Encounter [facility] Date(s): 05/06/21 - 06/05/21 [facility] Attending Physician: Alexis Daigle Admitting Physician: [...] 03/28/20 Not Given Patient Refuses [facility] 3Location History: [facility] 4Location [...] 0 Refills, Maintenance, 04/23/21 15:45:00 EST, Tablet, [facility], Partial fill upon patient [...] consistent with a cyst on CT at [facility] 04/2019(Confirmed) 04/2019 Active Coronary artery disease, [...] Morbid obesity(Confirmed) Active Obstructive sleep apnea(Confirmed) Active .Political Advisor: Zoltan Diaz [phone], [facility]. CPP(Confirmed) Active Post traumatic stress disord er (PTSD)(Confirmed) 1999 Active Severe obesity(Confirmed) Active 1-Seen in CT scan of the abdomen done at [facility] on 08-08-16 Social History Social History Type Response Smoking Status 10 or more cigarette s (1/2 pack or more)/day in last 30 days; Interested in cessation: No; Patient wants NRT during admission No entered on: 06/03/21 Sex
--- OUTSIDE RECORDS SUMMARY | 2023-01-21 00:02 | XMS_ITS | Continuity of Care Document ---
Author Name Unknown Organization [facility] y Address [address] [place] [address]- Care Team Providers Care Personnel Monitor Name Role Phone Preet Sofia MD Primary Care Physician Encounter [facility] Date(s): 09/27/22 - 12/11/22 [facility] [address], [place] [address] Attending Physician: Chandana Black DO Admitting Physician: Chandana Black DO Allergies, Adverse Reactions, Alerts No Known Allergies [...] Adult Vaccine 4 02/27/10 Recorded 1Location History: [facility] 2Location History: [facility] 3Location History: [facility] 4Location History: [facility] Medications aspirin 81 mg oral delayed [...] 11 Refills, Maintenance, 12/22/22 14:06:00 EDT, Tablet, [id number], 178, [...] 11/22/22 14:14:00 EDT, Route to Pharmacy Electronically, [id number], Partial fill upon [...] 0 Refills, Maintenance, 12/06/22 13:35:00 EDT, Tablet, [facility] [place] Start Date: 12/06/22 Status: Ordered duloxetine 30 mg oral enteric coated capsule 1 capsule = 30 mg, By Mouth, Daily at bedtime, for 30 days, # 30 capsule, 1 Refills, Hard Stop 01/21/23 14:06:00 EDT, 11/22/22 14:06:00 EDT, Capsule, [id number], [...] prescription is for aschedule II opioid drug., [id number], 11/22/22 18:01:0... Start Date: 01/21/23 Stop Date: [...] EST, Tablet, [facility], Partial fill upon patient request [...] 11/22/22 14:07:00 EDT, Route to Pharmacy Electronically, [facility] 14:06:00 EDT, Aerosol, Route to Pharmacy Electronically, [id number]... Start Date: 11/22/22 Status: Ordered torsemide 20 mg oral tablet 1 tablet = 20 mg, By Mouth, 2 times a day, for 30 days, # 60 tablet, 0 Refills, Hard Stop 12/22/22 14:08:00 EDT, 11/22/22 14:08:00 EDT, Tablet, [id number], [...] 01/31/23 14:05:45 EDT, 10/19/22 20:00:00 EDT, Tablet, [id number], 180, cm, 10/19/22 4:49:00 EDT, Height, 181, kg, 09/26/22 14:48:00... Start Date: 10/19/22 Stop Date: 01/31/23 Status: Ordered Tylenol Extra Strength 500 mg oral tablet 1 tablet = 500 mg, By Mouth, 3 times a day, PRN Pain , Moderate, # 100 tablet, 5 Refills, Maintenance, 01/31/23 14:05:00 EDT, Tablet, [facility][id number], 178, [...] consistent with a cyst on CT at [facility] 04/2019 Confirmed 04/2019 Active Coronary [...] Confirmed Active Obstructive sleep apnea Confirmed Active .Registered Safety Engineer: Lucita Segal [phone], [facility]. CPP Confirmed Active Post traumatic stress disorder (PTSD) Confirmed 1999 Active Pulmonary embolus most branches of R lung, Dx at [place], [place] on 11/28/22. L popliteal & peroneal [...] Team Personnel Name: Jim Munguia RN Position: S RN Supv Member Role: [...] Care Nurse Name: Jing Santiago RN Position: [facility] RN Member Role: Primary Care Nurse Name: Sven Bustos RN Position: [facility] RN Member Role: Primary Care Nurse Name: Sharron Schaefer RN Position: [facility] RN Member Role: Primary Care Nurse Name: Franca Luis LPN Position: [facility] RN Member Role: Primary Care Nurse Name: Sheryl Linda RN Position: [facility] RN Member Role: Primary Care Nurse Name: Zara Aldridge RN Position: [facility] RN Member Role: Primary Care Nurse Name: Preet Sofia MD Position: [facility] Physician - Primary Care Member Role: PCP Address: Address: [address] [place] [id number] Name: Betsey Harvey RN Position: [facility] RN Member Role: Primary Care Nurse Name: Camila Cervantes RN Position: [facility] RN Member Role: Primary Care Nurse Name: Aruna Warren RN Position: [facility] RN Member Role: Primary Care Nurse Name: aNomi Kyle RN Position: [facility] RN Member Role: Primary Care Nurse Name: Pavan Espinoza RN Position: [facility] RN Member Role: Primary Care Nurse Name: Lynne Shah RN Position: [facility] RN Member Role: Primary Care Nurse Name: Ashwini Larson RN Position: [facility] SN RN Member Role: Primary Care Nurse Name: Lorraine Good RN Position: [facility] RN Member Role: Primary Care Nurse Name: Mohan Quijano RN Position: [facility] RN Member Role: Primary Care Nurse Name: Shaina Nagy RN Position: [facility] RN Member Role: Primary Care Nurse Name: Sarah Gordon RN Position: [facility] Onco RN Member Role: Primary Care Nurse Name: Catalina Cook RN Position: [facility] RN Member Role: Primary Care Nurse Name: Sweta Lang RN Position: [facility] RN Member Role: Primary Care Nurse Name: Kely Morton RN Position: [facility] RN Member Role: Primary Care Nurse Care Team Related Persons Name: DIAN RODGERS Address: [place] [address] Name: LETIKT Address: [place] [address] Name: TAE QUIROZ Address: [place] [address]
--- OUTSIDE RECORDS SUMMARY | 2023-01-21 00:02 | XMS_ITS | Continuity of Care Document ---
Author Name Unknown Organization [facility] Address [address] [place] [address]- Care Team Providers Care Statistical Machine Servicer Name Role Phone Preet Sofia MD Primary Care Physician Encounter [facility] [place] Date(s): 08/14/20 - 09/13/20 [facility]/[address] [id number] Allergies, Adverse Reactions, Alerts Substance [...] Given Patient Refuses 1Location History: [facility] 2Location History: [facility] 3Location History: [facility] 4Location History: [facility] Medications aspirin 81 mg oral delayed release tablet 81 mg, By Mouth, Daily, # 90 tablet, Refills 4, Tot. Refills 4, Maintenance, 09/03/20 20:10:00 EDT,Route to Pharmacy Electronically, [facility], 180, cm, 09/03/20 9:24:00 EDT, Height, 172.7, kg, 08/28/20 4:44:00 EDT, Dry Weight Start Date: 09/03/20 Status: Ordered atorvastatin 40 mg oral tablet 1 tablet = 40 mg, By Mouth, Daily at bedtime, # 90 tablet, 4 Refills, Maintenance, 09/03/20 20:11:00 EDT, Tablet, [facility], 180, cm, 09/03/20 9:24:00 EDT, Height, 172.7, kg, 08/28/20 4:44:00 EDT, Dry Weight Start Date: 09/03/20 Status: Ordered clopidogrel 75 mg oral tablet 75 mg, 1, tablet, By Mouth, Daily, # 90 tablet, Refills 3, Tot. Refills 3, Hard Stop 01/17/22 16:10:00 EDT, 01/22/21 16:10:00 EDT, [id number], 180, cm, 04/08/20 13:32:00 EST, Height, 181.... Start Date: 01/22/21 Stop Date: 01/17/22 Status: Ordered FLUoxetine 20 mg oral capsule 20 mg, 1, capsule, By Mouth, Daily, # 90 capsule, Refills 4, Tot. Refills 4, Maintenance, 09/03/20 20:09:00 EDT, Route to Pharmacy Electronically, [facility], home delivery, 180, cm, 09/03/20 9:24:00 EDT, Height, 172.7, kg, ... Start Date: 09/03/20 Status: Ordered furosemide 20 mg oral tablet 20 mg, 1, tablet, By Mouth, Daily in AM, # 90 tablet, Refills 3, Tot. Refills 3, Maintenance, 09/03/20 20:12:00 EDT, Route to Pharmacy Electronically, [facility], home delivery please, 180, cm, 09/03/20 9:24:00 EDT, Height, 172.7,... Start Date: 09/03/20 Status: Ordered levothyroxine 0.05 mg oral tablet 1 tablet = 50 mcg, By Mouth, Daily, # 90 tablet, 4 Refills, Maintenance, 06/26/20 17:25:00 EST, Tablet, [facility], home delivery, 180, cm, 06/26/20 14:13:00 EST, Height, 181.6, kg, 03/27/20 14:58:00 EST, Dry Weight Start Date: 06/26/20 Status: Ordered metoprolol 25 mg oral tablet, extended release 25 mg, 1, tablet, By Mouth, Daily, # 90 tablet, Refills 4, Tot. Refills 4, Maintenance, 06/26/20 17:25:00 EST, Route to Pharmacy Electronically, [facility], home delivery, 180, cm, 06/26/20 14:13:00 EST, Height, 181.6, kg, 03/27/20... Start Date: 06/26/20 Status: Ordered nortriptyline 10 mg oral capsule 10 mg, 1, capsule, By Mouth, Daily, # 90 capsule, Refills 3, Tot. Refills 3, Maintenance, 09/03/20 20:09:00 EDT, Route to Pharmacy Electronically, [facility], 180, cm, 09/03/20 9:24:00 EDT, Height, [...] 06/26/20 17:25:00 EST, Route to Pharmacy Electronically, [facility], home delivery, 180, cm, 06/26/20 14:13:00 [...] consistent with a cyst on CT at [facility] 04/2019(Confirmed) 04/2019 Active Coronary artery [...] Morbid obesity(Confirmed) Active Obstructive sleep apnea(Confirmed) Active .E Tailer: Zoltan Diaz [phone], [facility]. BHCPP(Confirmed) Active Post traumatic stress disord er (PTSD)(Confirmed) 1999 Active 1-Seen in CT scan of the abdomen done at [facility] on 08-08-16 Social History Social History Type Response Smoking Status 10 or more cigarette s (1/2 pack or more)/day in last 30 days; Other: [id number]; entered on: 09/03/20 Sex
--- OUTSIDE RECORDS SUMMARY | 2023-01-21 00:02 | XMS_ITS | Continuity of Care Document ---
Author Name Unknown Organization [facility] ter Address [address] [place] [id number]- Care Team Providers Care Aircraft Mechanic Electrical And Radio Name Role Phone [place] TORRES, Preet Hall Primary Care Physician Encounter [facility] Date(s): 06/03/21 - 06/09/[address] [address]- Encounter Diagnosis CHF exacerbation(Final) - 06/03/21 Discharge Disposition: A-D/C Home Attending Physician: Kennedy Nicole MD Admitting Physician: Pradeep Isaacs MD Referring [...] Maintenance, 06/09/21 12:33:00 EST,Route to Pharmacy Electronically, [facility], 180, cm, 06/09/21 8:03:00 EST, Height, 168.5, kg, 06/03/21 15:52:00 EST, Dry Weight Start Date: 06/09/21 Stop Date: 12/06/21 Status: Ordered atorvastatin 40 mg oral tablet 1 tablet = 40 mg, By Mouth, Daily at bedtime, # 30 tablet, 5 Refills, Maintenance, 06/09/21 12:33:00 EST, Tablet, [facility], 180, cm, 06/09/21 8:03:00 EST, Height, 168.5, kg, 06/03/21 15:52:00 EST, Dry Weight Start Date: 06/09/21 Stop Date: 12/06/21 Status: Ordered carvedilol 3.125 mg oral tablet 3.125 mg, 1, tablet, By Mouth, 2 times a day, # 56 tablet, Refills 5, Tot. Refills 5, Maintenance, 06/09/21 12:33:00 EST, Route to Pharmacy Electronically, [facility], 180, cm, :03:00 EST, Height, 168.5, kg, 06/03/21 15:52:00 E... Start Date: 06/09/21 Status: Ordered carvedilol 3.125 mg oral tablet 3.125 mg, Tablet, By Mouth, 06/09/21 9:00:00 EST Start Date: 06/09/21 Stop Date: 06/09/21 Status: Completed clopidogrel 75 mg oral tablet 75 mg, 1, tablet, By Mouth, Daily, # 30 tablet, Refills 0, Tot. Refills 0, Maintenance, 06/09/21 12:33:00 EST, Route to Pharmacy Electronically, [facility], Partial fill upon patient request if the prescription is for a schedule II opioi... Start Date: 06/09/21 Status: Ordered Entresto 24 mg-26 mg oral tablet 1 tablet, By Mouth, 2 times a day, # 56 tablet, 5 Refills, Maintenance, 06/09/21 12:33:00 EST, Tablet, [facility], 1 tablet By Mouth 2 times a day,x28 days, 180, cm, 06/09/21 8:03:00 EST, Height, 168.5, kg, 06/03/21 15:52:00 EST, Dry Weight Start Date: 06/09/21 Stop Date: 11/24/21 Status: Ordered FLUoxetine 40 mg oral capsule 1 capsule = 40 mg, By Mouth, Daily, dose increase at time of next scheduled refill, # 28 capsule, 5Refills, Maintenance, 06/09/21 12:33:00 EST, Capsule, [facility], Partial fill upon patient request if the prescription is for a schedule... Start Date: 06/09/21 Status: Ordered HYDROmorphone 2 mg oral tablet 2 mg, Tablet, By Mouth, Every 4 hours, PRN for Pain , Severe, Routine, 06/05/21 14:00:00 EST Start Date: 06/05/21 Stop Date: 06/12/21 Status: Ordered levothyroxine 0.2 mg oral tablet = 200 mcg, By Mouth, Daily, # 30 tablet, 0 Refills, Maintenance, 06/09/21 12:31:00 EST, Tablet, [facility], Partial fill upon patient request if the prescription is for a schedule II opioid drug., 180, cm, 06/09/21 8:03:00 EST, Height, 1... Start Date: 06/09/21 Status: Ordered lidocaine 5% topical film 2 patch, Topically, Daily, PRN Pain , Moderate, remove patches after 12 hours. To chest and legs., # 30 patch, 0 Refills, Maintenance, 06/09/21 12:52:00 EST, Patch, [facility], Partial fill upon patient request if the prescription is for... Start Date: 06/09/21 Status: Ordered Nicoderm C-Q Clear 21 mg/24 hr transdermal film, extended release 1 patch, Topically, Daily, for 14 days, # 14 patch, 0 Refills, Acute 06/23/21 12:32:00 EST, 06/09/21 12:32:00 EST, Patch, [facility], Partial fill upon patient request if the prescription is for a schedule II opioid drug., 180, cm, 06/09... Start Date: 06/09/21 Stop Date: 06/23/21 Status: Ordered nitroglycerin 0.4 mg sublingual tablet 1 tablet = 0.4 mg, Sublingual, Every 5 minutes, PRN Chest Pain, # 100 tablet, 0 Refills, Maintenance, 06/09/21 12:34:00 EST, Tablet, [facility], Partial fill upon patient request [...] 0 Refills, Maintenance, 06/09/21 12:34:00 EST, Cream, [facility], Partial fill upon patient request if the prescription is for a schedule II opioid drug., 1 ap... Start Date: 06/09/21 Status: Ordered spironolactone 25 mg oral tablet 25 mg, 1, tablet, By Mouth, Daily, # 30 tablet, Refills 5, Tot. Refills 5, Maintenance, 06/09/21 12:34:00 EST, Route to Pharmacy Electronically, [facility], home delivery, 180, cm, 06/09/21 8:03:00 EST, Height, 168.5, kg, 06/03/21 15:52:... Start Date: 06/09/21 Stop Date: 12/06/21 Status: Ordered torsemide 20 mg oral tablet 2 tablet = 40 mg, By Mouth, 2 times a day, # 120 tablet, 0 Refills, Maintenance, 06/09/21 12:31:00 EST, Tablet, [facility], Partial fill upon patient request if the prescription is for a schedule II opioid drug., 180, cm, 06/09/21 8:03:0... Start Date: 06/09/21 Status: Ordered traZODone 50 mg oral tablet 50 mg, 1, tablet, By Mouth, Daily at bedtime, # 30 tablet, Refills 5, Tot. Refills 5, Maintenance, 06/09/21 12:34:00 EST, Route to Pharmacy Electronically, [facility], 180, cm, :03:00 EST, Height, 168.5, [...] consistent with a cyst on CT at [facility] 04/2019(Confirmed) 04/2019 Active Coronary artery disease, [...] Morbid obesity(Confirmed) Active Obstructive sleep apnea(Confirmed) Active .Refrigerator Glazier: Zoltan Diaz [phone], [facility]. CPP(Confirmed) Active Post traumatic stress disord er (PTSD)(Confirmed) 1999 Active Severe obesity(Confirmed) Active 1-Seen in CT scan of the abdomen done at [facility] on 08-08-16 Results Radiology Reports * Exam Date Time Procedure Performing Provider Status 06/06/21 10:35 AM Chest Portable Yang Evans (Verified) Notes: (Chest Portable) Reason For Exam: Pleuritic Pain RESULT: Chest Portable Chest Portable INDICATION/CLINICAL QUESTION: Reason: Pleuritic Pain; Clinical Question(s): Pleural Effusion / Pleural Effusion TECHNIQUE: AP chest 1026 hours 06/06/2021. COMPARISON: 06/03/2021. FINDINGS: LINES AND TUBES: Absent. LUNGS AND PLEURA: RIGHT CHEST: The lung is clear and there is no effusion.. LEFT CHEST: The upper lung is clear. Consolidation and effusion present at the left base.. HEART AND MEDIASTINAL CONTOURS: The heart size difficult to assess. It is probably enlarged. Superior mediastinum normal.. BONES AND SOFT TISSUES: No acute abnormality.. IMPRESSION: 1. No right chest abnormality. 2. Consolidation and effusion at the left base unchanged. WSN: [id number] Ordering Physician: Priya Miles Dictated By: Eugene Polk MD Dictated Date/Time: 06/06/21 1:30 pm Reviewed By: Eugene Polk MD Signed By: Eugeen Polk MD Signed Date/Time: 06/06/21 1:30 pm Transcribed By: SHANNA Transcribed Date/Time: 06/06/21 1:29 pm * Exam Date Time Procedure Performing Provider Status 06/03/21 6:22 AM Chest 2 Views Frontal and Lat Donna Anderson; Auth (Verified) Notes: (Chest 2 Views Frontal and Lat) Reason For Exam: Chest Pain;Other: RESULT: Chest 2 Views Frontal and Lat Chest 2 Views Frontal and Lat Hx of Present Illness: Chest pain x2h at home @ rest associated w SOB; Reason: Other:; Chest Pain; Clinical Question(s): CHF COMPARISON: Multiple prior chest x-rays, the most recent of which is dated 05/10/2021. Correlation is also made with CT of the chest dated 09/14/2020 FINDINGS: LINES AND TUBES: None. LUNGS AND PLEURA: There is blunting of left costophrenic hazy opacity extending to the mid chest, which may reflect accommodation of pleural effusion and adjacent atelectasis or pneumonia. No definite right pleural effusion. No pleural effusion. No pneumothorax. HEART, MEDIASTINUM AND CAROLA: Heart is normal in size. Unchanged pericardial fat pad on the right. Mediastinal contours are unchanged given the low lung volumes. BONES AND SOFT TISSUES: No acute abnormality. IMPRESSION: Left pleural effusion with likely adjacent atelectasis or pneumonia. WSN: [id number] Ordering Physician: Madelaine Joyner Dictated By: Christine Gastelum MD Dictated Date/Time: 06/03/21 7:49 am Reviewed By: Christine Gastelum MD Signed By: Christine Gastelum MD Signed Date/Time: 06/03/21 7:49 am Transcribed By: SHANNA Transcribed Date/Time: 06/03/21 7:47 am Vital Signs Most recent to oldest [Reference Range]: 1 2 3 Height 180 cm (06/09/21 1:18 PM) 180 cm (06/09/21 8:03 AM) 180 cm (06/09/21 2:00 AM) Weight 185.3 kg (06/05/21 7:29 AM) 168.5 kg (06/03/21 3:52 PM) 168.5 kg (06/03/21 11:53 AM) Oxygen Saturation [94-100 %] 85 % *L* (06/09/21 1:18 PM) 89 % *L* (06/09/21 8:03 AM) 92 % *L* (06/09/21 2:00 AM) Pulse Rate [55-90 bpm] 77 bpm (06/09/21 1:18 PM) 67 bpm (06/09/21 9:54 AM) 67 bpm (06/09/21 8:03 AM) Body Mass Index [18.5-24.99] 52.01 *>HHI* (06/03/21 3:52 PM) 52.01 *>HHI* (06/03/21 11:53 AM) Blood Pressure [90-138/55-84 mm Hg] 92/55mm Hg (06/09/21 1:18 PM) 107/67mm Hg (06/09/21 9:54 AM) 107/67mm Hg (06/09/21 8:03 AM) Respiratory Rate [16-30 br/min] 22 br/min (06/09/21 1:18 PM) 20 br/min (06/09/21 10:04 AM) 20 br/min (06/09/21 8:03 AM) Temperature [96.8-100.4 DegF] 96.9 DegF (06/09/21 1:18 PM) 97.7 DegF (06/09/21 8:03 AM) 97.3 DegF (06/09/21 2:00 AM) Liters per Minute 1 L/min (06/09/21 8:03 AM) 2 L/min (06/07/21 8:16 AM) 3 L/min (06/06/21 7:48 PM) Mode of Delivery (Oxygen) Room air (06/09/21 1:18 PM) Nasal cannula (06/09/21 8:03 AM) Room air (06/09/21 2:00 AM) Blood pressure sites Arm, right (06/09/21 1:18 PM) Arm, right (06/09/21 8:03 AM) Arm, left (06/09/21 2:00 AM) Temperature Route Temporal (06/09/21 1:18 PM) Temporal (06/09/21 8:03 AM) Temporal (06/09/21 2:00 AM) Dry Weight 168.5 kg (06/03/21 3:52 PM) 168.5 kg (06/03/21 11:53 AM) 168.5 kg (06/03/21 5:07 AM) Weight Obtained Via Bed scale (06/05/21 7:29 AM) Social History Social History Type Response Smoking Status 10 or more cigarette s (1/2 pack or more)/day in last 30 days; Interested in cessation: No; Patient wants NRT during admission No entered on: 06/03/21 Sex
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
--- OUTSIDE RECORDS SUMMARY | 2023-01-21 00:03 | XMS_ITS | Continuity of Care Document ---
Author Name Unknown Organization [facility] Address Unknown Care Team Providers Care Final Cigar And Box Examiner Name Role Phone Preet Sofia MD Primary Care Physician Encounter [facility] [place] Date(s): 09/09/21 - 10/09/21 [facility] Attending Physician: Alexis Daigle Admitting Physician: Alexis Daigle Referring Physician: AdmtrAlexis Allergies, Adverse Reactions, Alerts No Known Allergies [...] 2Location History: [facility] 3Location History: [facility] 4Location History: [facility] Medications aspirin 81 mg oral [...] 0 Refills, Maintenance, 06/09/21 12:34:00 EST, Tablet, [facility] [...] 0 Refills, Maintenance, 06/09/21 12:34:00 EST, Cream, [facility], Partial [...] 11:03:00 EDT, Aerosol, Route to Pharmacy Electronically, [id number]... Start Date: 07/29/21 Status: Ordered torsemide 20 [...] consistent with a cyst on CT at [facility] 04/2019(Confirmed) 04/2019 Active Coronary artery [...] class I(Confirmed) Active Obstructive sleep apnea(Confirmed) Active .Hat Renovator: Zoltan Diaz [phone], [facility]. BHCPP(Confirmed) Active Post traumatic stress disord er (PTSD)(Confirmed) 1999 Active 1-Seen in CT scan of the abdomen done at [facility] on 08-08-16 Social History Social History Type Response Smoking Status 10 or more cigarette s (1/2 pack or more)/day in last 30 days; Interested in cessation: No; Patient wants NRT during admission No entered on: 06/03/21 Sex
--- OUTSIDE RECORDS SUMMARY | 2023-01-21 00:03 | XMS_ITS | Continuity of Care Document ---
Author Name Unknown Organization [facility] ter Address [address] [place] [id number]- Care Team Providers Care Oil Speculator Name Role Phone rPeet Sofia MD Primary Care Physician Encounter [facility] Date(s): 01/03/23 - 01/03/[address] [address]- Encounter Diagnosis Chest pain(Final) - 01/03/23 Morbid obesity(Final) - 01/03/23 Discharge Disposition: A-D/C Home Attending Physician: Rolando Suggs MD Admitting Physician: Rolando Suggs MD Referring Physician: Not on Staff, Referring MD Allergies, Adverse Reactions, Alerts No Known Allergies Immunizations Given and Recorded Vaccine Date Status Refusal Reason SARS-CoV-2 (COVID-19) [id number] vaccine 05/11/21 G iven influenza virus vaccine, inactivated 1 02/08/14 Re corded hepatitis B adult vaccine 01/22/13 Recorded hepatitis B adult vaccine 08/12/10 Recorded hepatitis B adult vaccine 2 03/09/10 Recorded Hepatitis A Adult Vaccine 3 08/12/10 Recorded Hepatitis A Adult Vaccine 4 02/27/10 Recorded [facility] 2Location History: [facility] 3Location [...] 11 Refills, Maintenance, 12/22/22 14:06:00 EDT, Tablet, [facility]/pharmacy #[id number], 178, cm, 11/22/22 18:01:00 EDT, [...] oral tablet 3.125 mg, Tablet, By Mouth, 01/03/23 9:00:00 EDT Start Date: 01/03/23 Stop Date: 01/03/23 Status: Completed carvedilol 3.125 mg oral tablet 6.25 mg, 2, tablet, By Mouth, 2 times a day, # 60 tablet, Refills 5, Tot. Refills 5, Maintenance, 12/22/22 14:14:00 EDT, Route to Pharmacy Electronically, [facility]/pharmacy #[id number], 178, cm, 11/22/22 18:01:00 EDT, Height, 164.9, kg, 11/18/22 18:49:00 EDT, . Start Date: 12/22/22 Status: Ordered duloxetine 30 [...] Refills, Maintenance, 12/23/22 10:10:00 EDT, [id number] Partial fill upon patient request if the prescription is for a schedule II opioiddrug., 180, cm, 12/23/22 9:30:00 EDT, Height, 153.5... Start Date: 12/23/22 Status: Ordered MiraLax oral powder for reconstitution = 17 Gm, By Mouth, Daily, PRN Constipation, dissolve in water before taking, # 527 Gm, 1 Refills, Maintenance, 10/19/22 20:08:00 EDT, REC Powder, [facility]/pharmacy #[id number], 17 Gm By Mouth Daily,PRN:Constipation,Instr:dissolve in water before taking, 180, cm,... Start Date: 10/19/22 Status: Ordered Miscellaneous Rx 0 Refills, Maintenance, THC, 12/21/22 17:28:00 EDT Start Date: 12/21/22 Status: Ordered nitroglycerin 0.4 mg sublingual tablet 1 tablet = 0.4 mg, Sublingual, Every 5 minutes, PRN Chest Pain, # 100 tablet, 0 Refills, Maintenance, 06/09/21 12:34:00 EST, Tablet, [facility], Partial fill upon patient request if [...] 14:06:00 EDT, Aerosol, Route to Pharmacy Electronically, [id number]... Start Date: 11/22/22 Status: Ordered torsemide 20 mg oral tablet 1 tablet = 20 mg, By Mouth, 2 times a day, # 60 tablet, 5 Refills, Maintenance, 12/22/22 14:08:00 EDT, Tablet, [facility]/pharmacy #[id number], 178, cm, 11/22/22 18:01:00 EDT, [...] Confirmed Active Obstructive sleep apnea Confirmed Active .Fur Sorter: Lucita Segal [phone], [facility]ly [facility]. CPP Confirmed Active Post traumatic stress disorder (PTSD) Confirmed 1999 Active Pulmonary embolus most branches of R lung, Dx at [place], [place] on 11/28/22. L popliteal & peroneal DVT 11/18/22 Confirmed Active Severe obesity Confirmed Active 1-Seen in CT scan of the abdomen done at [facility] on 08-08-16 Results Radiology Reports * Exam Date Time Procedure Performing Provider Status 01/03/23 3:21 PM Foot Min 3 Views Right Echevarria Jazmine (Verified) Notes: (Foot Min 3 Views Right) Reason For Exam: Pain RESULT: Foot Min 3 Views Right Examination: Right foot performed on 01/03/2023. History: Hx of Present Illness: pt reports cp and sob , pt unable to take meds for 1 wk d t inability to drive to pharmacy; Reason: Pain; Clinical Question(s): Fracture Findings: Frontal, oblique, and lateral views of the right foot are compared to a prior study dated 12/17/2022. No fractures or dislocations are demonstrated. There are no erosions. A plantar calcaneal spur is seen. Soft tissue swelling overlies the dorsum of the foot. Impression: Soft tissue swelling. There is no acute osseous abnormality. WSN: [id number] Ordering Physician: Rolando Suggs Dictated By: Delaney Baer MD Dictated Date/Time: 01/03/23 3:27 pm Reviewed By: Delaney Baer MD Signed By: Delaney Baer MD Signed Date/Time: 01/03/23 3:27 pm Transcribed By: SHANNA Transcribed Date/Time: 01/03/23 3:25 pm * Exam Date Time Procedure Performing Provider Status 01/03/23 1:21 PM Foot Min 3 Views Left Radha Rodriguez; Shasha (Verified) Notes: (Foot Min 3 Views Left) Reason For Exam: Follow-Up Fracture RESULT: Foot Min 3 Views Left Foot Min 3 Views Left INDICATION / CLINICAL QUESTION: Reason:: Follow-Up Fracture; Clinical Question(s): Fracture / Fracture COMPARISON: 12/16/2022. TECHNIQUE: AP, oblique, and lateral views. FINDINGS: Again noted is a transverse fracture at the base of the fifth metatarsal with no angulation or displacement. It is unchanged in appearance.. No clear evidence of healing reaction.. There is no other fracture. There may be some mild widening of the fourth carpal-metacarpal joint. There is no arthritic change. IMPRESSION: 1. No change nondisplaced nonangulated fracture base of fifth metatarsal with no interval healing. 2. No other fractures seen. 3. There is probably some mild widening of the fourth tarsal-metatarsal joint. If there is clinicalconcern of a more extensive and occult Lisfranc injury, CT could be considered. WSN: [id number] Ordering Physician: Rolando Suggs Dictated By: Eugene Polk MD Dictated Date/Time: 01/03/23 1:39 pm Reviewed By: Eugene Polk MD Signed By: Eugene Polk MD Signed Date/Time: 01/03/23 1:39 pm Transcribed By: SHANNA Transcribed Date/Time: 01/03/23 1:36 pm * Exam Date Time Procedure Performing Provider Status 01/03/23 4:58 AM Chest 2 Views Frontal and Lat Sandie Gillis; Shasha (Verified) Notes: (Chest 2 Views Frontal and Lat) Reason For Exam: Chest Pain;Other: RESULT: Chest 2 Views Frontal and Lat Examination: Chest performed on 01/03/2023. History: Chest pain. Findings: Frontal and lateral views of the chest are compared to a prior study dated 12/27/2022. There is stable enlargement of the cardiac silhouette. The lungs are clear. The osseous and soft tissue structures are unremarkable. Impression: There is no acute cardiopulmonary disease. WSN: [id number] Ordering Physician: Danny Soni Dictated By: Delaney Baer MD Dictated Date/Time: 01/03/23 7:18 am Reviewed By: Delaney Baer MD Signed By: Delaney Baer MD Signed Date/Time: 01/03/23 7:18 am Transcribed By: SHANNA Transcribed Date/Time: 01/03/23 7:17 am Vital Signs Most recent to oldest [Reference Range]: 1 2 3 Height 180 cm (01/03/23 4:14 PM) 180 cm (01/03/23 1:40 PM) 180 cm (01/03/23 8:54 AM) Weight 170 kg (01/03/23 4:14 PM) 170 kg (01/03/23 1:40 PM) 170 kg (01/03/23 8:54 AM) Oxygen Saturation [94-100 %] 97 % (01/03/23 4:54 PM) 97 % (01/03/23 4:14 PM) 98 % (01/03/23 1:40 PM) Pulse Rate [55-90 bpm] 91 bpm *H* (01/03/23 4:54 PM) 71 bpm (01/03/23 10:46 AM) 58 bpm (01/03/23 8:54 AM) Body Mass Index [18.5-24.99 kg/m2] 52.47 kg/m2 *>HHI* (01/03/23 4:14 PM) 52.47 kg/m2 *>HHI* (01/03/23 1:40 PM) 52.47 kg/m2 *>HHI* (01/03/23 8:54 AM) Blood Pressure [90-138/55-84 mm Hg] 112/67mm Hg (01/03/23 4:54 PM) 113/67mm Hg (01/03/23 4:14 PM) 132/75mm Hg (01/03/23 1:40 PM) Respiratory Rate [16-30 br/min] 19 br/min (01/03/23 4:54 PM) 18 br/min (01/03/23 4:14 PM) 20 br/min (01/03/23 1:40 PM) Temperature [96.8-100.4 DegF] 98.1 DegF (01/03/23 4:54 PM) 98.6 DegF (01/03/23 4:03 AM) 98.4 DegF (01/03/23 3:58 AM) Liters per Minute 2 L/min (01/03/23 4:54 PM) 4 L/min (01/03/23 6:48 AM) Mode of Delivery (Oxygen) Nasal cannula (01/03/23 4:54 PM) Nasal cannula (01/03/23 4:14 PM) Room air (01/03/23 1:40 PM) Blood pressure sites Arm, left (01/03/23 4:14 PM) Arm, left (01/03/23 1:40 PM) Arm, left (01/03/23 8:54 AM) Temperature Route Oral (01/03/23 4:03 AM) Oral (01/03/23 3:58 AM) Dry Weight 170 kg (01/03/23 4:14 PM) 170 kg (01/03/23 1:40 PM) 170 kg (01/03/23 8:54 AM) Weight Obtained Via Patient/family state d (01/03/23 4:03 AM) Dry Weight Obtained Via Patient/family s tated (01/03/23 4:03 AM) Social History Social History Type Response Smoking Status 10 or more cigarette s (1/2 pack or more)/day in last 30 days; Interested in cessation: No; Patient wants NRT during admission No entered on: 06/03/21 Sex EKG study * Event Display: ECG 12-Lead Authored Date: Please click on pdf link to open report * Event Display: ECG 12-Lead Authored Date: Ventricular Rate: 84 BPM Atrial Rate: 84 BPM P-R Interval: 212 ms QRS Duration: 90 ms Q-T Interval: 394 ms QTC Calculation(Bazett): 465 ms P Aurora: -7 degrees R Aurora: -53 degrees T Aurora: -50 degrees Sinus rhythm with 1st degree A-V block with Premature atrial complexes in a pattern of bigeminy Left axis deviation Left ventricular hypertrophy ( R in aVL , Joseluis product , Romhilt-Haque ) Abnormal ECG Confirmed by VIPIN SESAY ([id number]) on 01/03/2023 8:36:10 AM Dillwyn: VIPIN SESAY Note * Debra Degroot: PERFORM, SIGN, VERIFY Event Display: Case Management Discharge Plan Authored Date: [id number] Patient: JAY MONTERO Age: 52 years Sex: Male : 1970 Associated Diagnoses: None Author: Debra Degroot Discharge Plan Case Management Discharge Plan : Case Management Discharge Plan Data 01/03/2023 14:57 EDT Discharge Level of Care at Discharge Homehealth/VNA Discharge VNA/Hospice/Home Care [facility] C[facility]1 [facility] Comments #1 You are being discharged with skilled nsg/med management thru [facility] - they will contact you in 1-2 days after discharge. Please contact them at the number provided if you dont hear from them. Patient Care team information Care Team Personnel Name: Brenda Vanegas RN Position: [facility] RN Member Role: Primary Care Nurse Name: Renae Rashid RN Position: [facility] RN Member Role: Primary Care Nurse Name: Lizbeth Reardon RN Position: [facility] RN Member Role: Primary Care Nurse Name: Brittny Griffin RN Position: [facility] RN Member Role: Primary Care Nurse Name: Phill Michelle Position: [facility] RN Supv Member Role: Primary Care Nurse Name: Rickey Cruz RN Position: [facility] RN Member Role: Primary Care Nurse Name: Brandee Bee RN Position: [facility] RN Member Role: Primary Care Nurse Name: Janie Gamez RN Position: [facility] RN Member Role: Primary Care Nurse Name: Toby Trotter RN Position: [facility] RN Supv Member Role: Primary Care Nurse Name: Jing Santiago RN Position: [facility] RN Member Role: Primary Care Nurse Name: Sven Bustos RN Position: [facility] RN Member Role: Primary Care Nurse Name: Sharron Schaefer RN Position: [facility] RN Member Role: Primary Care Nurse Name: Franca Luis LPN Position: [facility] RN Member Role: Primary Care Nurse Name: Sheryl Linda RN Position: [facility] RN Member Role: Primary Care Nurse Name: Zara Aldridge RN Position: [facility] RN Member Role: Primary Care Nurse Name: Preet Sofia MD Position: [facility] Physician - Primary Care Member Role: PCP Address: Address: [address] [place] [address] Name: Nanci Roman Position: [facility] RN Member Role: Primary Care Nurse Name: Betsey Harvey RN Position: [facility] RN Member Role: Primary Care Nurse Name: Camila Cervantes RN Position: [facility] RN Member Role: Primary Care Nurse Name: Aruna Warren RN Position: [facility] RN Member Role: Primary Care Nurse Name: Naomi Kyle RN Position: [facility] RN Member Role: Primary Care Nurse Name: Pavan Espinoza RN Position: [facility] RN Member Role: Primary Care Nurse Name: Lynen Shah RN Position: [facility] RN Member Role: Primary Care Nurse Name: Ashwini Larson RN Position: [facility] SN RN Member Role: Primary Care Nurse Name: Lorraine Good RN Position: [facility] RN Member Role: Primary Care Nurse Name: Mohan Quijano RN Position: [facility] RN Member Role: Primary Care Nurse Name: Shaina Nagy RN Position: [facility] RN Member Role: Primary Care Nurse Name: Sarah Gordon RN Position: [facility] Onco RN Member Role: Primary Care Nurse Name: Catalina Cook RN Position: [facility] RN Member Role: Primary Care Nurse Name: Yun Wadsworth RN Position: [facility] RN Member Role: Primary Care Nurse Name: Sweta Lang RN Position: [facility] RN Member Role: Primary Care Nurse Name: Kely Morton RN Position: [facility] RN Member Role: Primary Care Nurse Name: Madisyn Gonzalez Position: [facility] ED TA [facility] Member Role: Mortgage Closer Name: Dagoberto Jewell RN Position: [facility] ED RN W/OE and Tasks Member Role: Patient Care Provider Name: Ashley Brooke RN Position: [facility] ED RN W/OE and Tasks Member Role: Patient Care Provider Name: Rolando Suggs MD Position: [facility] ED Medicine MD Member Role: Admitting Physician Address: Address: [address] [place] [address] [place] [address]- [place] Care Team Related Persons Name: DIAN RODGERS Address: [place] [address] Name: KT LANDEROS Address: [place] [address] Name: TAE QUIROZ Address: [place] [id number]
[2023-01-21 00:25] LABS: COVID-19 Test Negative (Negative); IDNOW Serial# 08D9AD1C; IDNOW Serial# BCCEAD1C; Influenza A Negative (Negative); Influenza B2 Negative (Negative)
[2023-01-21] MEDS: HYDROmorphone HCl 1 MG/ML SYRINGE IVPUSH (01:37)
[2023-01-21] MEDS: Enoxaparin Sodium 40 MG/0.4 ML SYRINGE SUBCUT (01:38)
--- NOTE | 2023-01-21 01:39 | PC.NURSE ---
patient reports he does not know what medications does he take at home. Telephone call made to [facility] pharmacy on [facility], spoke to Kamila, pharmacist and who verified patient's home medications. Reconciliation of patient's home medications completed.
--- NOTE | 2023-01-21 02:39 | PC.NURSE ---
gave report to RN on floor
--- NOTE | 2023-01-21 03:34 | MHC.EDTECH ---
This instructor technical training brought patient upstairs to room 385-1.
[2023-01-21] MEDS: QUEtiapine Fumarate 25 MG TABLET PO (04:57)
[2023-01-21] MEDS: Levothyroxine Sodium 200 MCG TABLET PO (05:09)
--- NOTE | 2023-01-21 05:18 | PC.NURSE ---
Patient arrived to Room 385 from ED with sealed and signed envelope of non-controlled medication. Patient medication envelope stored in patient specific bin in [facility].
--- NOTE | 2023-01-21 05:32 | PC.NURSE ---
Patient scores high fall risk, educated patient on high fall risk precautions. Patient is refusing bed alarm and camera. Patient is alert and oriented x3. Patient reports will use callell when needs assistance. Urinal at bedside, callbell within reach.
--- NOTE | 2023-01-21 06:00 | P.HPHOSP_ITS ---
History of Present Illness Date of Service: 01/21/23 Chief Complaint: Shortness of breath This is a 53-year-old male with reported history of COPD on baseline 4 L of oxygen per patient, hypertension, hypothyroidism, diabetes, comes into the hospital complaints of shortness of breath, cough and sputum production. Patient reports his symptoms started a week ago. He was seen at [place] [address] and sent home, he comes to the hospital with worsening symptoms. He denies any chest pain, no abdominal pain nausea or vomiting, reports chronic bilateral foot pain. And states that he takes Dilaudid. Denies history of neuropathy. Reports no diarrhea constipation, no urinary symptoms and no lower extremity edema. On arrival to the ED patient is 96% on room air, Labs unremarkable Chest x-ray shows no acute infection Review of Systems 2 Review of Systems: Yes all other systems are reviewed and are negative [facility] Medical History COPD (chronic obstructive pulmonary disease) Hyperlipidemia Diabetes mellitus type 2 in obese Hypertension Surgical History History of cholecystectomy Social History Household Members: Family Housing: Apartment Do you presently have visiting nurse or other home services: Yes (nursing/ PT; 3 times/week) Alcohol intake: never Patient Tobacco Use Status: Current everyday Tobacco user Tobacco use type: Cigarette Cigarette Packs Per Day: 1 Cigarettes Per Day: 20.0 Years Smoked: 40 Smoked in Last 30 Days: Yes Patient Interested in Nicotine Replacement: No Use of substances other than those prescribed or required for medical reasons: Yes Substance Use Type: Marijuana Substance Use Frequency: Daily Last Used Substance: Just Prior to Admission Currently Displaying Signs/Symptoms of Drug Intoxication Withdrawal: No Have you been hit, kicked, punched, or otherwise hurt by someone within the past year? If so, by whom?: No Do you feel safe in your current relationship?: No Current Relationship Is there a partner from a previous relationship who is making you feel unsafe now?: No Are you made to feel afraid or neglected: No Advance Directives: No Advance Directives Information Provided: Yes Do you have thoughts of harming others: None Do you have a plan to hurt others: No Plan Recently lost weight without trying: No Nutrition Risks: No Nutritional Risk Meds Allergies Allergy/AdvReac Type Severity Reaction Status Date / Time No Known Allergies Allergy Verified 01/20/23 23:27 Active Medications: Current Medications Acetaminophen (Acetaminophen 325 Mg Tablet) 650 mg PO Q6H PRN PRN Reason: Pain, Mild (Pain Scale 1-3) Albuterol/Ipratropium (Albuterol/Iprat 2.5/0.5mg 3 Ml Ampul.Neb) 3 ml INHALE RQ4H PRN PRN Reason: Shortness of Breath/Wheezing Albuterol/Ipratropium (Albuterol/Iprat 2.5/0.5mg 3 Ml Ampul.Neb) 3 ml INHALE RQ4H WHILE AWAKE [facility] Apixaban (Apixaban 5 Mg Tablet) 5 mg PO BID [facility] Aspirin (Aspirin 81 Mg Tab.Chew) 81 mg PO DAILY [facility] Atorvastatin Calcium (Atorvastatin Calcium 80 Mg Tablet) 80 mg PO DAILY [facility] Carvedilol (Carvedilol 3.125 Mg Tablet) 3.125 mg PO BID [facility]; Protocol Docusate Sodium (Docusate Sodium 100 Mg Capsule) 100 mg PO DAILY PRN PRN Reason: Constipation Duloxetine HCl (Duloxetine Hcl 30 Mg Capsule.) 30 mg PO DAILY [facility] Gabapentin (Gabapentin 100 Mg Capsule) 200 mg PO BEDTIME [facility] Last Admin: 01/21/23 05:02 Dose: Not Given Levothyroxine Sodium (Levothyroxine Sodium 200 Mcg Tablet) 200 mcg PO DAILY@0600 [facility] Last Admin: 01/21/23 05:09 Dose: 200 mcg Metformin HCl (Metformin Hcl Er 500 Mg Tab.Er.24h) 500 mg PO DAILY [facility] Methylprednisolone Sodium Succinate (Methylprednisolone Sod Succ 40 Mg/Ml Vial) 40 mg IVPUSH BID [facility] Omeprazole (Omeprazole 20 Mg Capsule.) 20 mg PO DAILY [facility] Ondansetron HCl (Ondansetron Hcl 4 Mg/2 Ml Vial) 4 mg IVPUSH Q8H PRN PRN Reason: Nausea and Vomiting Sodium Chloride (0.9 % Sodium Chloride Flush 3 Ml Syringe) 3 ml IVFLUSH QSHIFT [facility] Spironolactone (Spironolactone 25 Mg Tablet) 25 mg PO DAILY [facility]; Protocol Torsemide (Torsemide 20 Mg Tablet) 20 mg PO BID [facility]; Protocol Home Medications Medication Instructions Recorded Confirmed Last Taken Type apixaban 5 mg tablet (Eliquis) 5 mg PO BID 01/21/23 01/21/23 Unknown History aspirin 81 mg tablet 81 mg PO DAILY 01/21/23 01/21/23 Unknown History atorvastatin 80 mg tablet 80 mg PO DAILY 01/21/23 01/21/23 Unknown History carvedilol 3.125 mg tablet 3.125 mg PO BID 01/21/23 01/21/23 Unknown History duloxetine 30 mg capsule,delayed 30 mg PO DAILY 01/21/23 01/21/23 Unknown History release levothyroxine 200 mcg tablet 200 mcg PO DAILY 01/21/23 01/21/23 Unknown History metformin 500 mg tablet,extended 500 mg PO DAILY 01/21/23 01/21/23 Unknown History release 24 hr pantoprazole 20 mg tablet,delayed 20 mg PO DAILY 01/21/23 01/21/23 Unknown History release polyethylene glycol 3350 17 gram 17 g DAILY PRN Constipation 01/21/23 01/21/23 Unknown History oral powder packet spironolactone 25 mg tablet 25 mg PO DAILY 01/21/23 01/21/23 Unknown History torsemide 20 mg tablet 20 mg PO BID 01/21/23 01/21/23 Unknown History Physical Exam 2 Vital Signs and Narrative: Vital Signs: Last Vital Signs Temp 97.4 F 01/21/23 04:00 Pulse 73 01/21/23 04:00 Resp 19 01/21/23 04:00 BP 127/67 01/21/23 04:00 Pulse Ox 94 01/21/23 04:00 O2 Del Method Nasal Cannula 01/21/23 04:00 O2 Flow Rate 4 01/21/23 04:00 BMI result Body Mass Index 52.7 Const: Other: Obese Resp: Other: Decreased breath sounds Results Labs 01/20/23 23:10 01/20/23 23:10 Labs: Laboratory Results - last 24 hr 01/20/23 01/20/23 23:10 23:52 MCV 94.2 MCH 30.9 MCHC 32.8 RDW 16.9 H Plt Count 280 MPV 9.6 Immature Gran % (Auto) 0.3 Neut % (Auto) 73.2 H Lymph % (Auto) 14.8 L [place] % (Auto) 7.8 Eos % (Auto) 3.6 Baso % (Auto) 0.3 Lymph # (Auto) 1.3 [place] # (Auto) 0.7 Eos # (Auto) 0.3 Baso # (Auto) 0.0 Abs Immat Gran (auto) 0.03 Absolute Neuts (auto) 6.5 Absolute Nucleated RBC 0.000 Nucleated RBC % (auto) 0.0 Anion Gap 18 Estim Creat Clear Calc 77.8 Estimated GFR 40 Random Glucose 112 Calcium 8.8 Total Bilirubin 0.2 AST 18 ALT 14 Alkaline Phosphatase 44 B-Natriuretic Peptide 51 Total Protein 7.3 Albumin 3.7 COVID-19 ([facility]) Negative COVID-19 Clin Com See Note Influenza Type A ([facility]) Negative Influenza Type B ([facility]) Negative Influenza A & B Note See Note Imaging Radiologist's Impressions: Impressions Chest X-Ray 01/20/23 23:22 IMPRESSION: No acute cardiopulmonary findings with the caveat of limited evaluation of the left lower lobe. Further evaluation with CT could be obtained as clinically deemed appropriate. Assessment and Plan (1) Acute exacerbation of chronic obstructive airways disease: Status: Acute Plan 53-year-old male with history of COPD baseline 4 L of oxygen comes into the hospital with shortness of breath, cough, sputum production # acute on chronic hypoxic respiratory failure -secondary to COPD exacerbation - baseline 4 L of oxygen - will treat with Solu-Medrol, DuoNeb - monitor respiratory status # diabetes - hold oral antihyperglycemics - start low-dose sliding scale insulin # hypertension - stable - continue antihypertensives # on anticoagulation - continue # hypothyroidism - continue levothyroxine # GERD - continue PPI - # HLD - continue statin DVT prophylaxis: Eliquis Given patient's need for COPD management as he failed outpatient therapy patient require minimum 2 nights inpatient hospital stay Time Spent With Patient Time: Total time managing care of this patient today ____ minutes. Quality Stroke Does the patient have a stroke diagnosis?: No VTE Prior VTE?: No VTE Risk Level:: Medical - moderate - high VTE Device Contraindication: Treatment Not Indicated VTE Drug Contraindication: N/A - Med Ordered
--- NOTE | 2023-01-21 06:38 | PC.NURSE ---
Patient refused morning labs, Dr. Omalley made aware.
[2023-01-21] MEDS: Spironolactone 25 MG TABLET PO (08:56)
[2023-01-21] MEDS: Atorvastatin Calcium 80 MG TABLET PO (08:56)
[2023-01-21] MEDS: Omeprazole 20 MG CAPSULE.DR PO (08:57)
[2023-01-21] MEDS: methylPREDNISolone Sod Succ 40 MG/ML VIAL IVPUSH ×2 (08:57→22:34)
[2023-01-21] MEDS: Torsemide 20 MG TABLET PO ×2 (08:57→20:29)
[2023-01-21] MEDS: Aspirin 81 MG TAB.CHEW PO (08:57)
[2023-01-21] MEDS: metFORMIN HCl ER 500 MG TAB.ER.24H PO (08:57)
[2023-01-21] MEDS: carvediloL 3.125 MG TABLET PO ×2 (08:57→20:29)
[2023-01-21] MEDS: DULoxetine HCl 30 MG CAPSULE.DR PO (08:57)
[2023-01-21] MEDS: 0.9 % Sodium Chloride Flush 3 ML SYRINGE IVFLUSH ×3 (08:57→20:29)
[2023-01-21] MEDS: Apixaban 5 MG TABLET PO ×2 (08:57→20:29)
[2023-01-21 09:11] LABS: Basophils Percent Auto 0.2 % (0-2); Eosinophils Percent Auto 0.1 % (0-4); Imm Gran Abs Auto 0.19 X10*3/uL (0.00-0.03); Imm Gran Pct Auto 2.1 % (0.0-0.4); Lymphocytes Absolute Auto 0.5 X10*3/uL (1.2-4.9); Lymphocytes Percent Auto 5.3 % (20-40); MANUAL DIFF FLAG SCAN; Mean Corpuscular HGB Conc 31.8 g/dl (31.0-36.0); Mean Corpuscular Hemoglobin 30.2 pg (27.0-33.0); Mean Corpuscular Volume 94.8 fL (80.0-98.0); Mean Platelet Volume 9.8 fL (9.4-12.4); Monocytes Absolute Auto 0.1 X10*3/uL (0.1-1.2); Neutrophils Absolute Auto 8.3 x10*3/uL (2.0-8.3); Neutrophils Percent Auto 91.3 % (45-73); Platelet Count 308 X10*3/uL (160-400); Red Blood Count 4.64 X10*6/uL (4.60-5.80); Red Cell Distribution Width 16.9 % (11.0-16.0); SCAN SMEAR FLAG 1
--- NOTE | 2023-01-21 09:18 | PHA.MEDREC ---
Pharmacy Consult ? Medication Reconciliation Med Rec review with patient own meds left at our pharmacy Pharmacy has completed the medication reconciliation.
[2023-01-21 09:28] LABS: Anion Gap 19 (12-20); Blood Urea Nitrogen 32 mg/dL (9-16); Calcium 9.5 mg/dL (8.4-10.2); Carbon Dioxide 23 mmol/L (22-29); Chloride 104 mmol/L (96-108); Creatinine Clr Calc Pharmacy 96.3; Estimated Glomerular Filt Rate 51; Glucose Random 268 mg/dL (60-115); Potassium 4.8 mmol/L (3.3-5.1); Sodium 141 mmol/L (135-145)
[2023-01-21 09:34] LABS: SLIDE REVIEW VERIFIED
--- NOTE | 2023-01-21 10:09 | P.PNIM_ITS ---
Subjective Subjective Date of Service: 01/21/23 Interval History: f/u on copd exacerbation still sob Physical Exam 2 Vital Signs: Vital Signs: Last Vital Signs Temp 96.9 F 01/21/23 07:16 Pulse 87 01/21/23 07:16 Resp 20 01/21/23 07:16 BP 144/68 H 01/21/23 07:16 Pulse Ox 91 L 01/21/23 07:16 O2 Del Method Room Air 01/21/23 07:16 O2 Flow Rate 4 01/21/23 04:00 BMI result Body Mass Index 52.7 Const: Other: General: AO X 3, no acute distress Resp: decrease air entry bilaterally CVS: S1,S2,RRR GI: +BS, NT, no distention Skin: No rash Neuro: motor grossly intact Psych: appropriate affect Objective Data Active Medications Acetaminophen (Acetaminophen 325 Mg Tablet) 650 mg PO Q6H PRN PRN Reason: Pain, Mild (Pain Scale 1-3) Albuterol/Ipratropium (Albuterol/Iprat 2.5/0.5mg 3 Ml Ampul.Neb) 3 ml INHALE RQ4H PRN PRN Reason: Shortness of Breath/Wheezing Albuterol/Ipratropium (Albuterol/Iprat 2.5/0.5mg 3 Ml Ampul.Neb) 3 ml INHALE RQ4H WHILE AWAKE [facility] Last Admin: 01/21/23 09:10 Dose: Not Given Documented By: ALPHONSO Non-Admin Reason: Patient Refused Apixaban (Apixaban 5 Mg Tablet) 5 mg PO BID [facility] Last Admin: 01/21/23 08:57 Dose: 5 mg Documented By: SKYE Aspirin (Aspirin 81 Mg Tab.Chew) 81 mg PO DAILY [facility] Last Admin: 01/21/23 08:57 Dose: 81 mg Documented By: SKYE Atorvastatin Calcium (Atorvastatin Calcium 80 Mg Tablet) 80 mg PO DAILY [facility] Last Admin: 01/21/23 08:56 Dose: 80 mg Documented By: SKYE Carvedilol (Carvedilol 3.125 Mg Tablet) 3.125 mg PO BID [facility]; Protocol Last Admin: 01/21/23 08:57 Dose: 3.125 mg Documented By: SKYE Docusate Sodium (Docusate Sodium 100 Mg Capsule) 100 mg PO DAILY PRN PRN Reason: Constipation Duloxetine HCl (Duloxetine Hcl 30 Mg Capsule.) 30 mg PO DAILY [facility] Last Admin: 01/21/23 08:57 Dose: 30 mg Documented By: SKYE Gabapentin (Gabapentin 100 Mg Capsule) 200 mg PO BEDTIME [facility] Last Admin: 01/21/23 05:02 Dose: Not Given Documented By: SILVESTRE Non-Admin Reason: pt refused; reports it does not help Hydromorphone HCl (Hydromorphone Hcl 2 Mg Tablet) 2 mg PO Q6H PRN PRN Reason: Pain, Severe (Pain Scale 7-10) Levothyroxine Sodium (Levothyroxine Sodium 200 Mcg Tablet) 200 mcg PO DAILY@0600 [facility] Last Admin: 01/21/23 05:09 Dose: 200 mcg Documented By: SILVESTRE Metformin HCl (Metformin Hcl Er 500 Mg Tab.Er.24h) 500 mg PO DAILY [facility] Last Admin: 01/21/23 08:57 Dose: 500 mg Documented By: SKYE Methylprednisolone Sodium Succinate (Methylprednisolone Sod Succ 40 Mg/Ml Vial) 40 mg IVPUSH BID [facility] Last Admin: 01/21/23 08:57 Dose: 40 mg Documented By: SKYE Omeprazole (Omeprazole 20 Mg Capsule.) 20 mg PO DAILY [facility] Last Admin: 01/21/23 08:57 Dose: 20 mg Documented By: SKYE Ondansetron HCl (Ondansetron Hcl 4 Mg/2 Ml Vial) 4 mg IVPUSH Q8H PRN PRN Reason: Nausea and Vomiting Sodium Chloride (0.9 % Sodium Chloride Flush 3 Ml Syringe) 3 ml IVFLUSH QSHIFT [facility] Last Admin: 01/21/23 08:57 Dose: 3 ml Documented By: SKYE Spironolactone (Spironolactone 25 Mg Tablet) 25 mg PO DAILY [facility]; Protocol Last Admin: 01/21/23 08:56 Dose: 25 mg Documented By: SKYE Torsemide (Torsemide 20 Mg Tablet) 20 mg PO BID [facility]; Protocol Last Admin: 01/21/23 08:57 Dose: 20 mg Documented By: SKYE Labs 01/21/23 08:56 01/21/23 08:56 Labs: Laboratory Results - last 24 hr 01/20/23 01/20/23 01/21/23 23:10 23:52 08:56 MCV 94.2 94.8 MCH 30.9 30.2 MCHC 32.8 31.8 RDW 16.9 H 16.9 H Plt Count 280 308 MPV 9.6 9.8 Immature Gran % (Auto) 0.3 2.1 H Neut % (Auto) 73.2 H 91.3 H Lymph % (Auto) 14.8 L 5.3 L [place] % (Auto) 7.8 1.0 L Eos % (Auto) 3.6 0.1 Baso % (Auto) 0.3 0.2 Lymph # (Auto) 1.3 0.5 L [place] # (Auto) 0.7 0.1 Eos # (Auto) 0.3 0.0 Baso # (Auto) 0.0 0.0 Abs Immat Gran (auto) 0.03 0.19 H Absolute Neuts (auto) 6.5 8.3 Absolute Nucleated RBC 0.000 0.000 Nucleated RBC % (auto) 0.0 0.0 Smear Tech's Comments VERIFIED Anion Gap 18 19 Estim Creat Clear Calc 77.8 96.3 Estimated GFR 40 51 Random Glucose 112 268 H Calcium 8.8 9.5 D Total Bilirubin 0.2 AST 18 ALT 14 Alkaline Phosphatase 44 B-Natriuretic Peptide 51 Total Protein 7.3 Albumin 3.7 COVID-19 ([facility]) Negative COVID-19 Clin Com See Note Influenza Type A ([facility]) Negative Influenza Type B ([facility]) Negative Influenza A & B Note See Note Assessment and Plan (1) Acute exacerbation of chronic obstructive airways disease: Status: Acute (2) Acute dyspnea: Status: Acute Plan 53-year-old male with history of COPD baseline 4 L of oxygen comes into the hospital with shortness of breath, cough, sputum production # acute on chronic hypoxic respiratory failure secondary to COPD exacerbation and Hypovention obesity type - baseline 4 L of oxygen - will treat with Solu-Medrol, DuoNeb - monitor respiratory status # diabetes - hold oral antihyperglycemics - start low-dose sliding scale insulin # hypertension - stable - continue antihypertensives #Chronic pain--take dilaudid 2 mg q6 hours, verified with [facility] [address] # on anticoagulation - continue # hypothyroidism - continue levothyroxine # GERD - continue PPI - # HLD - continue statin DVT prophylaxis: Eliquis neeed for inpatient: treatment for acute exacerbation of copd with iv steroid Time Spent With Patient Time: Total time managing care of this patient today ____ minutes. Quality Stroke Does the patient have a stroke diagnosis?: No VTE Prior VTE?: No VTE Risk Level:: Medical - moderate - high VTE Device Contraindication: Treatment Not Indicated VTE Drug Contraindication: N/A - Med Ordered
[2023-01-21] MEDS: HYDROmorphone HCl 2 MG TABLET PO ×3 (10:23→22:32)
--- NOTE | 2023-01-21 12:06 | MHC.CM.PN ---
pt lives with family has own ride home amnd will not need servixes when dcd
--- NOTE | 2023-01-21 12:17 | MHC.CM.PN ---
pt lives with cousin has a vna does not rem,ember agency name will need amb home
[2023-01-21] MEDS: Albuterol/Iprat 2.5/0.5MG 3 ML AMPUL.NEB INHALE (16:39)
[2023-01-21] MEDS: Gabapentin 100 MG CAPSULE 200 MG PO (20:29)
[2023-01-22 03:35] VITALS: BP 136/80; PULSE 81; RESP 20; TEMP 36.1; O2SAT 93
[2023-01-22] MEDS: Levothyroxine Sodium 200 MCG TABLET PO (05:02)
[2023-01-22] MEDS: HYDROmorphone HCl 2 MG TABLET PO (05:02)
[2023-01-22 07:21] VITALS: BP 140/71; PULSE 74; RESP 20; TEMP 36.6; O2SAT 94
--- NOTE | 2023-01-22 08:25 | PM.DS ---
DS: Providers Provider Date of Service: 01/22/23 Date of admission: 01/21/23 01:22 Primary care physician: Preet Sofia MD DS: Diagnosis Discharge Diagnosis (1) Acute exacerbation of chronic obstructive airways disease: Status: Acute (2) Acute dyspnea: Status: Acute DS: Summary Hospital Course Hospital Course: Chief Complaint: Shortness of breath This is a 53-year-old male with reported history of COPD on baseline 4 L of oxygen per patient, hypertension, hypothyroidism, diabetes, comes into the hospital complaints of shortness of breath, cough and sputum production. Patient reports his symptoms started a week ago. He was seen at [place] [id number] and sent home, he comes to the hospital with worsening symptoms. He denies any chest pain, no abdominal pain nausea or vomiting, reports chronic bilateral foot pain. And states that he takes Dilaudid. Denies history of neuropathy. Reports no diarrhea constipation, no urinary symptoms and no lower extremity edema. On arrival to the ED patient is 96% on room air, Labs unremarkable Chest x-ray shows no acute infection Hospital course: Patient presented with shortness of breath and was admited for treatment of acute on chronic respiratory failure due to exacerbation of copd. He was treated with IV steroid, bronchodilators by Neb and made rapid recovery. He will be discharged with Prednisone 40 mg daily for a total of 5 days of steroid. He advise to loose as obesity is likely contributing to his respiratory symptoms Final diagnoses acute on chronic respiratory failure d acute exacerbation of copd obesity Hypoventilation syndrome Time Spent with Patient Time attestation: Total time managing care of this patient today ____ minutes. Discharge coordination time: Greater than 30 minutes Quality: Safe Use of Opioids Does Pt have an Active Cancer Diagnosis on the Problem List?: No Quality: Stroke Does the patient have a stroke diagnosis?: No Physical Exam Vital Signs: Vital Signs: Last Vital Signs Temp 97.8 F 01/22/23 07:21 Pulse 74 01/22/23 07:21 Resp 20 01/22/23 07:21 BP 140/71 H 01/22/23 07:21 Pulse Ox 94 01/22/23 07:21 O2 Del Method Nasal Cannula 01/22/23 07:21 O2 Flow Rate 3 01/22/23 07:21 BMI result Body Mass Index 52.7 DS: Data Data Completed and Pending Labs on day of discharge: Laboratory Results - last 24 hr 01/21/23 08:56 WBC 9.0 RBC 4.64 Hgb 14.0 Hct 44.0 MCV 94.8 MCH 30.2 MCHC 31.8 RDW 16.9 H Plt Count 308 MPV 9.8 Immature Gran % (Auto) 2.1 H Neut % (Auto) 91.3 H Lymph % (Auto) 5.3 L [place] % (Auto) 1.0 L Eos % (Auto) 0.1 Baso % (Auto) 0.2 Lymph # (Auto) 0.5 L [place] # (Auto) 0.1 Eos # (Auto) 0.0 Baso # (Auto) 0.0 Abs Immat Gran (auto) 0.19 H Absolute Neuts (auto) 8.3 Absolute Nucleated RBC 0.000 Nucleated RBC % (auto) 0.0 Smear Tech's Comments VERIFIED Sodium 141 Potassium 4.8 Chloride 104 Carbon Dioxide 23 Anion Gap 19 BUN 32 H Creatinine 1.46 H Estim Creat Clear Calc 96.3 Estimated GFR 51 Random Glucose 268 H Calcium 9.5 D Discharge Plan Discharge Anticipated Discharge Date/Time: 01/22/23 08:22 Patient Disposition: Home, Self-Care Discharge Diagnosis: Acute COPD exacerbation Referrals: Preet Sofia MD [Primary Care Provider] - 1 Week Discharge Medications: New prednisone 20 mg tablet 40 mg PO DAILY Qty: 6 0RF Continued atorvastatin 80 mg Tablet 80 mg PO DAILY pantoprazole 20 mg Tablet,Delayed Release (Dr/Ec) 20 mg PO DAILY metformin 500 mg Tablet Extended Release 24 Hr 500 mg PO DAILY Eliquis 5 mg Tablet 5 mg PO BID aspirin 81 mg Tablet 81 mg PO DAILY duloxetine 30 mg Capsule,Delayed Release(Dr/Ec) 30 mg PO DAILY carvedilol 3.125 mg Tablet 3.125 mg PO BID Rx Instructions: must administer with a meal/food levothyroxine 200 mcg Tablet 200 mcg PO DAILY polyethylene glycol 3350 17 gram Powder In Packet 17 g DAILY PRN (Reason: Constipation) torsemide 20 mg Tablet 20 mg PO BID spironolactone 25 mg Tablet 25 mg PO DAILY Discharge Orders: Discharge Order (Routine); Ordered 01/22/23 Ordered By: Adiel Cardoza Diet: Advance to usual diet Activity on Discharge: As tolerated Stand Alone Forms: Patient Portal Discharge page Care Plan Goals: recovery from copd exacerbation Health Concerns: chronic respiratory failure due to copd obesity Plan of Treatment: take prednisoneas recommended and follow up with your doctor in a week weight loss is advised Assessment: as above
[2023-01-22 08:50] VITALS: PULSE 74; RESP 20; O2SAT 94
[2023-01-22] MEDS: Albuterol/Iprat 2.5/0.5MG 3 ML AMPUL.NEB INHALE (08:50)
--- NOTE | 2023-01-22 08:55 | MHC.CM.PN ---
PT WILL DC HOME TODAY WITH NO NEW SERVICES HE REPORTS HE DOES HAVE SOMEONE COMING IN THREE TIMES PER WEEK BUT IT IS UNCLEAR IF THIS IS A VNA OR [employer] CM PROVIDED CONTACT CARD TO GIVE THEM IF THEY NEED RECORDS PT NEEDS BLS TRANSPORT ARRANGED FOR 1000
[2023-01-22] MEDS: Atorvastatin Calcium 80 MG TABLET PO (08:59)
[2023-01-22] MEDS: 0.9 % Sodium Chloride Flush 3 ML SYRINGE IVFLUSH (08:59)
[2023-01-22] MEDS: metFORMIN HCl ER 500 MG TAB.ER.24H PO (08:59)
[2023-01-22] MEDS: methylPREDNISolone Sod Succ 40 MG/ML VIAL IVPUSH (08:59)
[2023-01-22] MEDS: carvediloL 3.125 MG TABLET PO (08:59)
[2023-01-22] MEDS: DULoxetine HCl 30 MG CAPSULE.DR PO (09:00)
[2023-01-22] MEDS: Omeprazole 20 MG CAPSULE.DR PO (09:00)
[2023-01-22] MEDS: Apixaban 5 MG TABLET PO (09:00)
[2023-01-22] MEDS: Aspirin 81 MG TAB.CHEW PO (09:00)
== END 2023-01-22 10:20 | disposition home or self-care (01) | DRG 140 ==
LOC: HO.ED 01-21 00:40 → HO.EDOVER 01-21 01:33 → HO.S3 01-21 02:11
PROVIDERS: Admitting Provider Internal Medicine; Emergency Provider Emergency Medicine; PCP Internal Medicine; Visit Provider Internal Medicine
DX: J44.1 Chronic obstructive pulmonary disease with (acute) exacerbation (principal); J96.21 Acute and chronic respiratory failure with hypoxia; Z99.81 Dependence on supplemental oxygen; E03.9 Hypothyroidism, unspecified; E78.5 Hyperlipidemia, unspecified; K21.9 Gastro-esophageal reflux disease without esophagitis; E66.2 Morbid (severe) obesity with alveolar hypoventilation; G89.29 Other chronic pain; E11.9 Type 2 diabetes mellitus without complications; F17.210 Nicotine dependence, cigarettes, uncomplicated; Z71.6 Tobacco abuse counseling; Z20.822 Contact with and (suspected) exposure to COVID-19; Z68.43 Body mass index [BMI] 50.0-59.9, adult; Z79.01 Long term (current) use of anticoagulants; Z79.82 Long term (current) use of aspirin; Z79.84 Long term (current) use of oral hypoglycemic drugs; Z79.890 Hormone replacement therapy; Z79.899 Other long term (current) drug therapy
CPT/HCPCS: 36415; 71046; 80048; 80053; 83880; 84484; 85025; 87502; 87635; 93005; 94640; 99221; 99285; J1170; J1650; J2920; J2930

== ENCOUNTER → 2023-01-21 01:22 | Outpatient (BNV) | payer OTHER, SELFPAY | PROVIDERS: Admitting Provider Internal Medicine; Emergency Provider Emergency Medicine; PCP Internal Medicine; Visit Provider Internal Medicine | DX: J44.1 Chronic obstructive pulmonary disease with (acute) exacerbation (principal); R06.00 Dyspnea, unspecified | CPT/HCPCS: 99223; 99239; 99499 ==

== ENCOUNTER 2023-01-26 00:45 | Emergency (ER) | payer OTHER, SELFPAY ==
--- NOTE | ~2023-01-26 | XR_ITS ---
EXAMINATION: XR CHEST CLINICAL INFORMATION: Shortness of breath. COMPARISON: 01/20/2023. TECHNIQUE: Frontal view of the chest was obtained. FINDINGS: There is some limitation related to technique and body habitus. The cardiomediastinal silhouette is stable. There appears to be minimal right middle lobe scarring. The lung craig are otherwise clear. The bony structures and soft tissues are unremarkable XR/XR chest 1V IMPRESSION: There appears to be scarring in the region of the right middle lobe. No other significant abnormality seen.
[2023-01-26 00:52] VITALS: BP 120/82; BP 121/63; PULSE 82; PULSE 83; RESP 20; TEMP 36.8; O2SAT 96; O2SAT 98; BMI 48.8
--- NOTE | 2023-01-26 01:02 | ECG_ITS ---
Test Reason : SOB Blood Pressure : / mmHG Vent. Rate : 076 BPM Atrial Rate : 076 BPM P-R Int : 174 ms QRS Dur : 138 ms QT Int : 442 ms P-R-T Axes : 061 -50 069 degrees QTc Int : 497 ms Normal sinus rhythm Left axis deviation Left ventricular hypertrophy with QRS widening ( R in aVL , [place] product ) Cannot rule out Septal infarct (cited on or before 20-JAN-2023) Possible Lateral infarct (cited on or before 20-JAN-2023) Abnormal ECG When compared with ECG of 20-JAN-2023 22:59, No significant change was found Referred By: Generic ED Physician Electronically Signed By:TRACY BLANTON
[2023-01-26 01:58] LABS: MANUAL DIFF FLAG NO
[2023-01-26 02:01] LABS: Basophils Percent Auto 0.3 % (0-2); Eosinophils Absolute Auto 0.3 X10*3/uL (0.0-0.4); Eosinophils Percent Auto 2.4 % (0-4); Hematocrit 41.6 % (42.0-52.0); Hemoglobin 13.3 g/dl (14.0-18.0); Imm Gran Pct Auto 0.9 % (0.0-0.4); Lymphocytes Absolute Auto 2.4 X10*3/uL (1.2-4.9); Lymphocytes Percent Auto 20.2 % (20-40); Mean Corpuscular Hemoglobin 30.2 pg (27.0-33.0); Mean Corpuscular Volume 94.3 fL (80.0-98.0); Mean Platelet Volume 9.4 fL (9.4-12.4); Monocytes Absolute Auto 0.8 X10*3/uL (0.1-1.2); Monocytes Percent Auto 7.1 % (2-11); Neutrophils Absolute Auto 8.2 x10*3/uL (2.0-8.3); Neutrophils Percent Auto 69.1 % (45-73); Platelet Count 307 X10*3/uL (160-400); Red Blood Count 4.41 X10*6/uL (4.60-5.80); Red Cell Distribution Width 16.7 % (11.0-16.0); White Blood Count 11.8 X10*3/uL (4.8-10.8)
--- NOTE | 2023-01-26 02:04 | ED.GENADULT ---
HPI - General Adult General Chief complaint: Dyspnea Stated complaint: SOB Time Seen by Provider: 01/26/23 01:49 Source: patient Mode of arrival: EMS Limitations: no limitations History of Present Illness HPI narrative: Patient comes to the emergency room complaining of shortness of breath. According to the patient, he feels like he is retaining fluids. Patient states he feels the same as when he was here for shortness of breath on January 21. Patient was discharged on January 22. Patient was here for chronic respiratory failure due to exacerbation of COPD, treated with IV antibiotic steroids. Also, patient was advised to lose weight as he is morbidly obese. EMS reports that the patient reported to them that the patient took his oxygen off for 30 minutes to smoke marijuana, after those 30 minutes patient was short of breath, put his oxygen back on, continue being short of breath. Per EMS, oxygen saturation in the mid 90s on patient's 4 L of oxygen which she usually uses at home. Related Data Home Medications Medication Instructions Recorded Confirmed apixaban 5 mg tablet (Eliquis) 5 mg PO BID 01/21/23 01/21/23 aspirin 81 mg tablet 81 mg PO DAILY 01/21/23 01/21/23 atorvastatin 80 mg tablet 80 mg PO DAILY 01/21/23 01/21/23 carvedilol 3.125 mg tablet 3.125 mg PO BID 01/21/23 01/21/23 duloxetine 30 mg capsule,delayed 30 mg PO DAILY 01/21/23 01/21/23 release levothyroxine 200 mcg tablet 200 mcg PO DAILY 01/21/23 01/21/23 metformin 500 mg tablet,extended 500 mg PO DAILY 01/21/23 01/21/23 release 24 hr pantoprazole 20 mg tablet,delayed 20 mg PO DAILY 01/21/23 01/21/23 release polyethylene glycol 3350 17 gram 17 g DAILY PRN Constipation 01/21/23 01/21/23 oral powder packet spironolactone 25 mg tablet 25 mg PO DAILY 01/21/23 01/21/23 torsemide 20 mg tablet 20 mg PO BID 01/21/23 01/21/23 Previous Rx's Medication Instructions Recorded prednisone 20 mg tablet 40 mg (2 x 20 mg) PO DAILY #6 tabs 01/22/23 bumetanide 0.5 mg tablet 0.5 mg PO BID #6 tabs 01/26/23 Allergies Allergy/AdvReac Type Severity Reaction Status Date / Time No Known Allergies Allergy Verified 01/20/23 23:27 Review of Systems Review of Systems: Constitutional : No Weight loss, No Fever, No Chills, No Night Sweats, No Fatigue, No Malaise ENT/Mouth : No Hearing loss, No Ear Pain, No Nasal Congestion, No Sinus Pain, No Hoarseness, No sore throat, No Rhinorrhea, No Swallowing Difficulty Eyes: No Eye Pain, No Swelling, No Redness, No Foreign Body, No Discharge, No Vision Changes Cardiovascular : No Chest Pain, complaining of dyspnea after taking his oxygen off, No Orthopnea, No Edema, No Palpitations Respiratory : No Cough, No Sputum, No Wheezing, No Smoke Exposure, No Dyspnea Gastrointestinal : No Nausea, No Vomiting, No Diarrhea, No Constipation, No abdominal Pain, No Hematochezia, No Melena Genitourinary : no irregular bleeding, No Dysuria, No Urinary Frequency, No Hematuria, No Urinary Incontinence, No Urgency, No Flank Pain, No Urinary Flow Changes, No Hesitancy Musculoskeletal : No joint pain, No Myalgias, No Joint Swelling Skin : No Skin Lesions, No rash Neuro : No Weakness, No Numbness, No Paresthesias, No Loss of Consciousness, No Dizziness, No Headache Psych : No Anxiety/Panic, No Depression, No SI/HI/AH/VH, No Social Issues, Heme/Lymph: No Bruising, No Bleeding,No Lymphadenopathy Endocrine : No Polyuria, No Polydipsia, No Temperature Intolerance [facility] Past Medical History Medical History COPD (chronic obstructive pulmonary disease) Hyperlipidemia Diabetes mellitus type 2 in obese Hypertension Surgical History History of cholecystectomy Social History Social History Household Members: Family Housing: Apartment Do you presently have visiting nurse or other home services: Yes (nursing/ PT; 3 times/week) Alcohol intake: never Patient Tobacco Use Status: Current everyday Tobacco user Tobacco use type: Cigarette Cigarette Packs Per Day: 1 Cigarettes Per Day: 20.0 Years Smoked: 40 Substance Use Type: Marijuana Advance Directives: No Advance Directives Information Provided: No service: No Physical Exam ED Vital Signs: Vital Signs - 24 hr 01/26/23 00:52 01/26/23 02:18 01/26/23 02:41 Temperature 98.3 F Pulse Rate 83 83 74 Respiratory Rate 20 18 20 Blood Pressure 121/63 138/62 Pulse Oximetry 96 96 Oxygen Delivery Method Nasal Cannula Nasal Cannula Oxygen Flow Rate 3 BMI result Body Mass Index 48.8 Const Other: Appearance: Alert. Oriented X3. No acute distress. Eyes: Pupils equal, round and reactive to light. ENT: Pharynx normal. Neck: Normal inspection. Neck supple. No lymph nodes noted. No crepitus CVS: Normal heart rate and rhythm. Pulses normal. Normal S1 and S2 Respiratory: No respiratory distress. Mild bilateral wheezing, good air movement, oxygen saturation 97% on 4 L which is his home dose Abdomen: Soft and nontender. No rigidity. No distention. Skin: Skin warm and dry. Normal skin color. Normal skin turgor. Extremities: Patient has bake legs bilaterally due to his body habitus, but there is no lower extremity edema bilaterally. No Lacerations. No Rash Neuro: Oriented X 3. No motor deficit. No sensory deficit. Moving all extremities. No slurred speech. CN 2 through 12 grossly intact Psych: calm, cooperative, normal affect Course Course Course Narrative: -patient's oxygen saturation is at baseline at this time. -patient receiving Solu-Medrol and a breathing treatment, patient mildly wheezing -all of patient's labs pending -my interpretation of labs: White blood cell count 11.8, likely secondary to steroid use. Patient's chemistry improved from the last time the patient was here, creatinine within normal limits. Troponin 47.4, at baseline. -my interpretation of chest x-ray: No pneumonia. -radiology report, old scarring, no new findings. -D-dimer negative. -patient states that his baseline weight is 350 kg, equivalent of 158 kg. Today, patient is 158.7 -patient's legs are on the bigger side due to body habitus, but there is very small amount of fluid/trace pedal edema Medications Administered Discontinued Medications Generic Name Dose Route Start Last Admin Trade Name Freq PRN Reason Stop Dose Admin Albuterol Sulfate 5 mg 01/26/23 02:06 01/26/23 02:18 Albuterol Sulfate (0.083%) 2.5 Mg/3 Ml Vial.Neb INHALE 01/26/23 02:07 5 mg ONCE ONE Administration Methylprednisolone Sodium Succinate 125 mg 01/26/23 02:06 01/26/23 02:32 Methylprednisolone Sod Succ 125 Mg/2 Ml Vial IVPUSH 01/26/23 02:07 125 mg ONCE ONE Administration Medical Decision Making Medical Decision Making [facility] Narrative: -my interpretation of labs, white blood cell count 11.8, likely secondary to steroids. D-dimer negative, patient's pCO2 64, bicarb 39, pH 7.39, all chronic changes. Patient's chemistry within normal limits, creatinine improved from previous labs, troponin at baseline. BMP negative and at baseline. - My interpretation of Chest x-ray : no acute abnormalities or pulmonary edema -patient is at baseline weight. -patient admitted that he wants to be admitted. I discussed the patient with Dr. Cardoza, there is no reason to admit the patient at this time, all labs are at baseline, Dr. Cardoza also agrees there is no pitting edema, BMP is normal, chest x-ray normal, patient has oxygen at home. Patient is not in COPD exacerbation either. Dr. Cardoza recommends outpatient echocardiogram to have a baseline cardiac function. At this time, no need to admit the patient, patient is not in acute heart failure, as BMP is normal, there is no edema and chest x-ray is normal. -patient states that he takes Lasix and it is not working for him. However, I reviewed patient's pharmacy records, patient does not have Lasix. -chronic shortness of breath likely secondary to hypoventilation syndrome. In previous admission, patient has been advised to lose weight Differential Diagnosis Differential Diagnoses: The differential diagnosis associated with the presentation includes Admission/Observation Consideration of admission/observation: Escalation of care including admission/observation considered Consult Healthcare Provider Management of the patient was discussed with: Hospitalist Lab Data [facility] Lab Attestation statement: I reviewed the patient's lab results. 01/26/23 01:47 01/26/23 01:47 Labs: Lab Results 01/26/23 01/26/23 Range/Units 01:47 02:38 WBC 11.8 H (4.8-10.8) X10*3/uL RBC 4.41 L (4.60-5.80) X10*6/uL Hgb 13.3 L (14.0-18.0) g/dl Hct 41.6 L (42.0-52.0) % MCV 94.3 (80.0-98.0) fL MCH 30.2 (27.0-33.0) pg MCHC 32.0 (31.0-36.0) g/dl RDW 16.7 H (11.0-16.0) % Plt Count 307 (160-400) X10*3/uL MPV 9.4 (9.4-12.4) fL Immature Gran % (Auto) 0.9 H (0.0-0.4) % Neut % (Auto) 69.1 (45-73) % Lymph % (Auto) 20.2 (20-40) % [place] % (Auto) 7.1 (2-11) % Eos % (Auto) 2.4 (0-4) % Baso % (Auto) 0.3 (0-2) % Lymph # (Auto) 2.4 (1.2-4.9) X10*3/uL [place] # (Auto) 0.8 (0.1-1.2) X10*3/uL Eos # (Auto) 0.3 (0.0-0.4) X10*3/uL Baso # (Auto) 0.0 (0.0-0.2) X10*3/uL Abs Immat Gran (auto) 0.10 H (0.00-0.03) X10*3/uL Absolute Neuts (auto) 8.2 (2.0-8.3) x10*3/uL Absolute Nucleated RBC 0.000 (0.0-0.012) X10*3/uL Nucleated RBC % (auto) 0.0 (0.0-0.2) /100WBC PT 10.9 L (11.1-13.3) SEC INR 0.9 (0.9-1.1) D-Dimer High Sensitivty 172 NG/ML VBG pH 7.39 (7.32-7.43) VBG pCO2 64 mmHg VBG pO2 41 mmHg VBG HCO3 39 H (22-26) mmol/L VBG O2 Saturation 62.0 % VBG Base Excess 11.9 mmol/L Sodium 141 (135-145) mmol/L Potassium 4.2 (3.3-5.1) mmol/L Chloride 100 (96-108) mmol/L Carbon Dioxide 33 H (22-29) mmol/L Anion Gap 12 (12-20) BUN 32 H (9-16) mg/dL Creatinine 1.25 (0.5-1.4) mg/dL Estim Creat Clear Calc 107.4 Estimated GFR > 60 Random Glucose 121 H (60-115) mg/dL Calcium 9.1 (8.4-10.2) mg/dL Total Bilirubin 0.1 (0.0-1.0) mg/dL AST 13 (5-37) U/L ALT 12 (0-40) U/L Alkaline Phosphatase 40 (39-117) U/L Troponin I High Sens 47.4 H (<3.5-35.0) ng/L B-Natriuretic Peptide 52 (<100) pg/mL Total Protein 7.0 (6.5-8.0) g/dL Albumin 3.8 (3.5-5.0) g/dL Independent Interpretation I performed an independent interpretation of an: Plain X-Ray Radiology Impression Discussion of test interpretation with radiology: I have reviewed the radiologist's reading. Radiologist Impression: FINDINGS: There is some limitation related to technique and body habitus. The cardiomediastinal silhouette is stable. There appears to be minimal right middle lobe scarring. The lung craig are otherwise clear. The bony structures and soft tissues are unremarkable XR/XR chest 1V IMPRESSION: There appears to be scarring in the region of the right middle lobe. No other significant abnormality seen. Critical Care Time Critical Care Time Critical Care Time: Yes Total Critical Care Time: 60 Attestation: I have personally provided critical care time. Time includes review of lab data, radiology results, discussion with consultants, and monitoring for potential decompensation. Intervention performed as documented. Discharge Plan Discharge Clinical Impression: Chronic dyspnea Patient Disposition: Home, Self-Care Instructions: Dyspnea (ED) Additional Instructions: Please follow-up with your primary care physician tomorrow. Is likely that you will need an echocardiogram scheduled outpatient. If you have any worsening or new symptoms, please return to the emergency room or call 911 Prescriptions: New bumetanide 0.5 mg tablet 0.5 mg PO BID Qty: 6 0RF No Action atorvastatin 80 mg Tablet 80 mg PO DAILY pantoprazole 20 mg Tablet,Delayed Release (Dr/Ec) 20 mg PO DAILY metformin 500 mg Tablet Extended Release 24 Hr 500 mg PO DAILY Eliquis 5 mg Tablet 5 mg PO BID aspirin 81 mg Tablet 81 mg PO DAILY duloxetine 30 mg Capsule,Delayed Release(Dr/Ec) 30 mg PO DAILY carvedilol 3.125 mg Tablet 3.125 mg PO BID Rx Instructions: must administer with a meal/food levothyroxine 200 mcg Tablet 200 mcg PO DAILY polyethylene glycol 3350 17 gram Powder In Packet 17 g DAILY PRN (Reason: Constipation) torsemide 20 mg Tablet 20 mg PO BID spironolactone 25 mg Tablet 25 mg PO DAILY prednisone 20 mg tablet 40 mg PO DAILY Qty: 6 0RF Referrals: Kenny Kat MD [Physician] - (Needs echocardiogram)
[2023-01-26 02:07] LABS: INTERNATIONAL NORM RATIO 0.9 (0.9-1.1); Prothrombin Time 10.9 SEC (11.1-13.3)
[2023-01-26 02:13] LABS: Alanine Aminotransferase 12 U/L (0-40); Albumin Level 3.8 g/dL (3.5-5.0); Alkaline Phosphatase 40 U/L (39-117); Anion Gap 12 (12-20); Aspartate Amino Transferase 13 U/L (5-37); Bilirubin Total 0.1 mg/dL (0.0-1.0); Blood Urea Nitrogen 32 mg/dL (9-16); Calcium 9.1 mg/dL (8.4-10.2); Carbon Dioxide 33 mmol/L (22-29); Chloride 100 mmol/L (96-108); Creatinine Clr Calc Pharmacy 107.4; Estimated Glomerular Filt Rate > 60; Glucose Random 121 mg/dL (60-115); Potassium 4.2 mmol/L (3.3-5.1); Sodium 141 mmol/L (135-145)
[2023-01-26 02:18] VITALS: PULSE 83; RESP 18; O2SAT 98
[2023-01-26] MEDS: Albuterol Sulfate (0.083%) 2.5 MG/3 ML VIAL.NEB 5 MG INHALE (02:18)
[2023-01-26 02:19] LABS: B Type Natriuretic Peptide 52 pg/mL (<100); Troponin-I High Sensitivity 47.4 ng/L (<3.5-35.0)
[2023-01-26] MEDS: methylPREDNISolone Sod Succ 125 MG/2 ML VIAL IVPUSH (02:32)
[2023-01-26 02:41] VITALS: BP 138/62; PULSE 74; RESP 20; O2SAT 96
[2023-01-26 02:42] LABS: Venous Blood Gas Refer to POC result
[2023-01-26 02:44] LABS: VBG Base Excess 11.9 mmol/L; VBG HCO3 39 mmol/L (22-26); VBG pCO2 64 mmHg; VBG pH 7.39 (7.32-7.43); VBG pO2 41 mmHg
[2023-01-26 02:59] LABS: D Dimer High Sensitivity 172 NG/ML
--- NOTE | 2023-01-26 03:00 | PC.NURSE ---
late entry- this rn placed 20g iv in R AC. pt tolerated well. pt medicated according to mar
--- NOTE | 2023-01-26 04:18 | MHC.EDTECH ---
Call out [facility] @[phone] eta given by [facility] dispatch.
[2023-01-26 04:30] VITALS: BP 105/63; PULSE 87; RESP 17; TEMP 36.7; O2SAT 94
--- NOTE | 2023-01-26 06:44 | PC.NURSE ---
pt up for discharge. trop elevated this rn discussed with dr young if md wanted repeat troponin. per dr young troponin is consistent with baseline level. no repeat troponin ordered this rn gave report to ems staff prior to transport home. this rn entered pt room to remove iv and discuss discharge instructions. iv removed from R Ac. pt refused to sign discharge form. pt agitated stating will not be able to get into home, pt raising voice at this rn. pt stating to ems does not want to wake up roommates to get into apartment. pt interjecting and not cooperative with listening to instructions. rn concurrent review to bedside attempted to discuss further plan of care with pt, security called to deescalate pt. pt agreeable to moving to [facility]indsey bed until roommates wake and ems can get ptinto apartment
--- NOTE | 2023-01-26 08:36 | PC.NURSE ---
Pt states none of his roommates will be up until at least 10 and until then he has no way to get into his house. pt also requesting some meds that he left locked up in the pharmacy. meds retrieved by rn from pharm and given to pt.
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
[2023-01-26 11:10] VITALS: BP 167/92; PULSE 92; RESP 12; O2SAT 93
--- NOTE | 2023-01-26 12:45 | PC.NURSE ---
helga here to take pt home. pt continues to swear and be inappropriate. agreeable to discharge plan. has paperwork from being dc'd previously
== END 2023-01-26 12:53 | disposition home or self-care (01) ==
PROVIDERS: Emergency Provider Emergency Medicine; PCP Internal Medicine
DX: R06.02 Shortness of breath (principal); J44.1 Chronic obstructive pulmonary disease with (acute) exacerbation; R94.31 Abnormal electrocardiogram [ECG] [EKG]; F12.90 Cannabis use, unspecified, uncomplicated; F17.210 Nicotine dependence, cigarettes, uncomplicated; Z71.6 Tobacco abuse counseling; Z79.899 Other long term (current) drug therapy; Z99.81 Dependence on supplemental oxygen
CPT/HCPCS: 36415; 71045; 80053; 82803; 83880; 84484; 85025; 85379; 85610; 93005; 96361; 96374; 99284; 99285; J2930

== ENCOUNTER 2023-06-25 23:59 | Outpatient (BNV) | payer MEDICAID, SELFPAY | END 2023-07-08 23:59 | PROVIDERS: PCP Internal Medicine; Visit Provider Internal Medicine | DX: R07.1 Chest pain on breathing (principal); I42.9 Cardiomyopathy, unspecified; Z59.02 Unsheltered homelessness | CPT/HCPCS: 99223 ==